=== PATIENT | female | born 1945 | race Caucasian/White ===

== ENCOUNTER → 2017-05-14 13:40 | Outpatient (CLI) | payer MEDICARE, OTHER, SELFPAY | PROVIDERS: Family Provider Family Medicine; PCP Family Medicine; Visit Provider Obstetrics & Gynecology Gynecologic Oncology | DX: C54.1 Malignant neoplasm of endometrium (principal) | CPT/HCPCS: 36415; 86304 ==

== ENCOUNTER → 2017-06-03 09:30 | Outpatient (CLI) | payer MEDICARE, OTHER, SELFPAY ==
[2017-06-03 12:14] LABS: Absolute Lymphocyte Count 2.45 X10^3/ul (0.83-4.51); Absolute Neutrophil Count 3.2 X10^3/uL (2.0-7.7); Basophil# 0.02 X10^3/uL; Basophil% 0.3 % (0-1); Eosinophil# 0.05 X10^3/uL; Eosinophils% 0.8 % (0-5); Hematocrit 47.1 % (37-47); Hemoglobin 15.6 g/dl (12.0-15.0); Lymphocyte # 2.45 X10^3/ul (4.0); Lymphocyte % 38.8 % (19-41); Mean Corp Hgb Conc 33.1 g/gl (32-36); Mean Corpuscular Hgb 30.7 pg (27.0-32.0); Mean Corpuscular Volume 92.7 fL (81-99); Mean Platelet Vol. 10.2 fl (6.2-12.0); Monocyte# 0.56 X10^3/uL; Monocyte% 8.9 % (0-10); Neutrophil # 3.22 X10^3/uL (2.7-7.7); Platelet Count 265 K/mm3 (150-450); RBC Distribution Width CV 13.8 % (11.6-14.6); RBC Distribution Width SD 45.7 fl (35.1-43.9); Red Blood Count 5.08 M/mm3 (4.2-5.4); White Blood Count 6.3 K/mm3 (4.4-11.0)
[2017-06-03 12:20] LABS: POSITIVE COUNT NO; POSITIVE DIFFERENTIAL NO; POSITIVE MORPHOLOGY NO
[2017-06-03 12:44] LABS: Vitamin D,25 Hydroxy 52.4 ng/mL (29.95-100.01)
[2017-06-03 12:52] LABS: ALB/GLOB Ratio 0.9 RATIO (0.9-2.4); AST(SGOT) 19 U/L (15-37); Alanine Aminotransfer ALT/SGPT 22 U/L (13-56); Albumin, Serum 3.7 g/dL (3.2-5.0); Alkaline Phosphatase 78 U/L (45-117); Anion Gap 8 (5-15); BUN 17 mg/dL (7-18); BUN/Creat Ratio 20.6 RATIO (10-20); Calcium,Total 8.8 mg/dL (8.5-10.1); Chloride 107 mmol/L (98-107); Creatinine, Serum 0.82 mg/dL (0.55-1.02); EST Glomerular Filtration Rate 72 mL/min (>60); Est Glom Filt Rate - Afr Amer 88 mL/min (>60); Globulin 3.9 g/dL (2.2-4.2); Glucose 87 mg/dL (74-106); Potassium 3.9 mmol/L (3.5-5.1); Protein, Total 7.6 g/dL (6.4-8.2); Sodium Level 139 mmol/L (136-145); T4 Free Direct 1.02 ng/dL (0.76-1.46); Thyroid Stim Hormone (TSH) 1.35 uIU/mL (0.358-3.74)
== END ==
PROVIDERS: Family Provider Family Medicine; PCP Family Medicine; Visit Provider Family Medicine
DX: E78.5 Hyperlipidemia, unspecified (principal); E55.9 Vitamin D deficiency, unspecified; R53.83 Other fatigue
CPT/HCPCS: 36415; 80053; 82306; 84439; 84443; 85025

== ENCOUNTER → 2017-06-24 09:37 | Outpatient (CLI) | payer MEDICARE, OTHER, SELFPAY ==
--- NOTE | 2017-06-24 09:42 | RAD_ITS ---
STUDY: X-RAY - RIGHT KNEE REASON FOR EXAM: Female, 72 years old. Pain. TECHNIQUE: 4 view(s) of the knee. COMPARISON: None. FINDINGS: Normal visualized distal femur. Normal visualized proximal tibia and fibula. Normal proximal tibiofibular articulation. There is no demonstrated fracture. 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 There is minimal degenerative arthrosis of the lateral femorotibial compartment. There is minimal degenerative arthrosis of the patellofemoral articulation. There is no demonstrated joint effusion. The soft tissue structures are unremarkable. RAD/Knee 4 or More Views IMPRESSION: No acute abnormality. Minimal multicompartment degenerative disease especially for a patient of this age. Electronically Signed: Pascual Chauhan MD at 16:07 EDT , Service support ,
--- NOTE | 2017-06-24 09:42 | RAD_ITS ---
STUDY: X-RAY - RIGHT KNEE REASON FOR EXAM: Female, 72 years old. Pain. TECHNIQUE: 4 view(s) of the knee. COMPARISON: None. FINDINGS: Normal visualized distal femur. Normal visualized proximal tibia and fibula. Normal proximal tibiofibular articulation. There is no demonstrated fracture. Normal medial femorotibial compartment. Normal lateral femorotibial compartment. There is minimal degenerative arthrosis of the patellofemoral articulation. There is no demonstrated joint effusion. The soft tissue structures are unremarkable. RAD/Knee 4 or More Views IMPRESSION: No acute abnormality. 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 Electronically Signed: Pascual Chauahn MD at 16:07 EDT , Service support ,
== END ==
PROVIDERS: Family Provider Family Medicine; PCP Family Medicine; Visit Provider Family Medicine
DX: M25.561 Pain in right knee (principal); M25.562 Pain in left knee; G89.29 Other chronic pain
CPT/HCPCS: 73564

== ENCOUNTER → 2017-09-05 08:31 | Outpatient (CLI) | payer MEDICARE, OTHER, SELFPAY ==
[2017-09-06 11:58] LABS: Cancer Antigen 125 16.1 U/mL (0.0-38.1)
== END ==
PROVIDERS: Family Provider Family Medicine; PCP Family Medicine; Visit Provider Obstetrics & Gynecology Gynecologic Oncology
DX: C54.1 Malignant neoplasm of endometrium (principal)
CPT/HCPCS: 36415; 86304

== ENCOUNTER → 2018-01-14 08:10 | Outpatient (CLI) | payer MEDICARE, OTHER, SELFPAY ==
[2018-01-15 10:22] LABS: Cancer Antigen 125 17.1 U/mL (0.0-38.1)
== END ==
PROVIDERS: Family Provider Family Medicine; PCP Family Medicine; Referring Provider Obstetrics & Gynecology Gynecologic Oncology; Visit Provider Obstetrics & Gynecology Gynecologic Oncology
DX: C54.1 Malignant neoplasm of endometrium (principal)
CPT/HCPCS: 36415; 86304

== ENCOUNTER → 2018-01-28 09:27 | Outpatient (CLI) | payer MEDICARE, OTHER, SELFPAY ==
[2018-01-28 11:05] LABS: BUN 23 mg/dL (7-18); Creatinine, Serum 0.94 mg/dL (0.55-1.02); EST Glomerular Filtration Rate 62 mL/min (>60); Est Glom Filt Rate - Afr Amer 75 mL/min (>60)
--- OUTSIDE RECORDS SUMMARY | 2018-03-11 23:40 | XMS RPT_ITS ---
:1945 External Reference #:[id number] Author Organization [place] Support Name Relationship Address Phone Osbaldo Kim Unavailable + HECTOR KIM Unavailable [address] + [place] [address] ALICJA GALLAGHERY Unavailable [address] + [place] [address] R Unavailable Unavailable Unavailable DEEKATYOSBALDOHECTOR Unavailable [address] + [place] [address] ALICJA GALLAGHERY Unavailable [address] + [place] [address] R Unavailable Unavailable Unavailable GWENSSNER HECTOR Unavailable [address] + [place] [address] AILEEN SHAMA Unavailable [address] + [place] [address] R Unavailable Unavailable Unavailable DEEKATY HECTOR Unavailable [address] + [place] [address] AILEEN SHAMA Unavailable [address] + [place] [address] R Unavailable Unavailable Unavailable VITO HECTOR Unavailable [address] + [place] [address] AILEEN SHAMA Unavailable [address] + [place] [address] R Unavailable Unavailable Unavailable GWENSSNER HECTRO Unavailable [address] + [place] [address] AILEEN SHAMA Unavailable [address] + [place] [address] R Unavailable Unavailable Unavailable GWENSSNER, HECTOR Unavailable [address] + [place] [address] AILEEN SHAMA Unavailable [address] + [place] [address] R Unavailable Unavailable Unavailable Care Team Providers Name Role Phone Ryne Munoz Attending Unavailable PROVIDER, UNKNOWN Referring Unavailable Asia, Micheal Primary Care Unavailable Ryne Munoz Attending Unavailable Ryne Munoz Referring Unavailable Asia, Micheal Primary Care Unavailable Asia, Micheal Attending Unavailable Asia, Micheal Primary Care Unavailable Asia, Micheal Attending Unavailable Asia, Micheal Primary Care Unavailable Ryne Munoz Attending Unavailable Ryne Munoz Referring Unavailable Asia, Micheal Primary Care Unavailable Deyvi Villalba Attending Unavailable Asia, Micheal Referring Unavailable Asia, Micheal Primary Care Unavailable Ryne Munoz Attending Unavailable Ryne Munoz Referring Unavailable Asia, Micheal Primary Care Unavailable KAMILLE CORDERO Attending Unavailable Asia, Micheal Primary Care Unavailable KAMILLE CORDERO Referring Unavailable PROBLEMS PROBLEMS DATE TYPE CONDITION / CODE ATTENDING STATUS SOURCE 01/30/2018 Admitting Cyst of kidney, [employer] Diagnosis acquired / [facility] N28.1(ICD-10) Repository 01/30/2018 Admitting Pelvic and [employer] Diagnosis perineal pain / [facility] R10.2(ICD-10) Repository 01/30/2018 Admitting Personal history [employer] Diagnosis of malignant [facility] neoplasm of oth Repository prt uterus / Z85.42(ICD-10) 01/28/2018 Unknown C54.1 - Malignant KAMILLE CORDERO Active [facility] neoplasm of Community endometrium / Hospital C54.1(ICD-10) Repository 06/24/2017 Unknown M25.561 - Pain in Micheal Betancourt Active [facility] right knee / Community M25.561(ICD-10) Hospital Repository 06/24/2017 Unknown M25.562 - Pain in Micheal Betancourt Active [place] left knee / [facility] M25.562(ICD-10) Hospital Repository 06/03/2017 Unknown E55.9 - Vitamin D Micheal Betancourt Active [facility] deficiency, Community unspecified / Hospital E55.9(ICD-10) Repository 06/03/2017 Unknown E78.5 - Micheal Betancourt Active [facility] Hyperlipidemia, Community unspecified / Hospital E78.5(ICD-10) Repository 06/03/2017 Unknown R53.83 - Other Micheal Betancourt Active [facility] fatigue / Community R53.83(ICD-10) Hospital Repository PROCEDURES PROCEDURES No Procedure Records FoundRESULTS RESULTS CT ABDOMEN/PELVIS W/ Observed: 01/30/2018 Status: F Source: [employer] CONTRAST 3:30 PM SYSTEM REPOSITORY Patient Name: RAMOS KIM CT Exam Date/Time 01/30/2018 10:40:[address] Abdomen/Pelvis w/ IV Contrast (IV Onl Ordering Physician RYNE MUNOZ Accession Number [id number] CPT4 Codes 58865 (CT Abdomen/Pelvis w/ IV Contrast (IV Onl), Q9967 (CT ISOVUE 370MG/[id number]) Reason For Exam pelvic pain, hx of metastatic uterine cancer Report CT ABDOMEN and PELVIS WITH CONTRAST. INDICATION: Pelvic pain, history of metastatic uterine carcinoma COMPARISON: 01/28/2017. CONTRAST: 75 cc of Isovue-370. CT scans of the abdomen and pelvis were performed following oral and intravenous contrast administration, with images from the lung bases through the pubic symphysis. The images are reviewed in the axial, sagittal and coronal planes. The lung bases are clear. The cardiac silhouette is satisfactory. The liver is normal in size, shape and attenuation. There are no focal liver masses. The gallbladder is normal. No intra or extrahepatic biliary ductal dilatation is appreciated. The pancreas is unremarkable. The spleen is unremarkable. Evaluation of the upper GI tract demonstrates the stomach to be unremarkable. The duodenum is satisfactory in appearance. The small bowel is unremarkable. There is no mucosal thickening. No zone of transition is appreciated. There is no free fluid nor free air. A small midline supraumbilical fat-containing ventral hernia is present. Evaluation of the colon demonstrate no evidence of obstruction or mass lesion. No mucosal thickening of the colon is appreciated. The appendix is normal. The right adrenal gland is normal. The left adrenal gland is normal. The right kidney is unremarkable. A 1.2 cm inferior pole right renal cyst is present. The left kidney is unremarkable. A 1.1 cm left renal cyst is present. There are no mass lesions nor evidence of obstruction. No calculi are seen. Scans through the pelvis demonstrate the rectosigmoid to be unremarkable. The bladder is unremarkable. The remainder of the pelvic contents are unremarkable. There is no mass or adenopathy. There is no free fluid. The aorta, inferior vena cava and iliac vessels are satisfactory. The retroperitoneum is unremarkable. There is no mass or adenopathy. The osseous structures are intact. IMPRESSION: Bilateral renal cysts. No acute abdominal or pelvic process. Report Dictated on Final Dictated: 01/30/2018 3:30 pm Dictating Physician: DO RUIZ ALFRED Signed Date and Time: 01/30/2018 3:34 pm Signed by: DO RUIZ ALFRED Transcribed Date and Time: 01/30/2018 3:30 BUN Collected: 01/28/2018 Status: F Source: [place] 9:37 AM [facility] REPOSITORY TYPE CODE TESTS RESULT OUT OF RANGE REFERENCE UNITS LAB L501.1000 7-18 mg/dL High BUN 23 Performed By: #### L501.1000, L501.1105 #### [facility] [address] [place], [place], [address] SERUM CREATININE AND Collected: 01/28/2018 Status: F Source: [place] GFR 9:37 AM [facility] REPOSITORY TYPE CODE TESTS RESULT OUT OF RANGE REFERENCE UNITS LAB L501.1100 0.55-1.02 mg/dL Normal 0.94 CREAT,SERUM Result Comment: The validity of the calculated GFR AND GFRAA in patients over 70 years has not been determined. Clinical correlation is essential. LAB L501.1110 >60 mL/min Normal EST GFR 62 Result Comment: Non- GFR Calc LAB L501.1115 >60 mL/min Normal EST GFR - AA 75 Result Comment: GFR Calc Performed By: #### L501.1000, L501.1105 #### [facility] [address] [place], [address] CANCER ANTIGEN 125 Collected: 01/14/2018 Status: F Source: [place] 8:16 AM [facility] REPOSITORY TYPE CODE TESTS RESULT OUT OF RANGE REFERENCE UNITS LAB L3100.5000 0.0-38.1 U/mL Normal CA125 17.1 2303 Result Comment: Tom ECLIA methodology Performed at: [address] [id number] Product Demonstrator: Kash Silva PhD, Phone: [phone] Performed By: #### L3100.5000 #### [facility] (refer to report for specific site) refer to report for address and phone number URGENT CARE VISIT Observed: 11/18/2017 Status: F Source: [place] REPORT 10:10 AM [facility] REPOSITORY [facility] [address] [place] [address] OFFICE VISIT Date of Service: 11/18/17 MR#: [id number] Acct: [id number] Name: RAMOS KIM Rep #: [id number] : 1945 Provider: Deyvi DODGE Age/Sex: 72/F Location: [facility] Status: Signed Intake Vital Signs11/18/17 Height 5 ft 2.5 in Intake Visit Reasons: SINUS INFECTION Allergies No Known Allergies Allergy (Verified 11/18/17 09:58) Medications amoxicillin 875 mg-potassium clavulanate 125 mg tablet 1 tab PO Q12H 9 Days #18 tab 11/18/17 [Rx Confirmed 11/18/17] coenzyme Q10 30 mg capsule 30 mg PO DAILY 11/18/17 [History Confirmed 11/18/17] omega-3s 300 de-nzq-nty-other lpeam0e-bayi oil 1,000 mg capsule cap PO 11/18/17 [History Confirmed 11/18/17] simvastatin 20 mg tablet PO 90 Days #90 11/18/17 [History Confirmed 11/18/17] PFSH Medical History Abnormal bruising (Acute) Back pain (Acute) Difficulty balancing (Acute) Endometrial cancer (Acute) Fatigue (Acute) Migraines (Acute) Shoulder pain (Acute) Uterine cancer (Acute) Family History Other CVA (cerebral vascular accident) Cancer Hypertension Social History Smoking Status: Never smoker alcohol intake: never HPI HPI Details: RAMOS KIM, is a 72 F who presents to the office today for sinus pressure and pain as well as sore throat and nasal congestion. Patient states that she has had worsening sinus pressure and pain over the past 5 days that has started to cause headaches. She has not tried any medications for headaches at this time however has started Augmentin that she had leftover last night and this morning. She denies fever, chills, sweats. No nausea, vomiting, diarrhea. No other associated symptoms or alleviating/aggravating factors. ROS Const Constitutional: Positive for headache(s); no fever(s), chills, night sweats or abnormal sleep pattern ENT ENT: Positive for headache(s), nasal congestion, sinus pressure, sinus pain, nasal discharge and sore throat; no ear pain Resp Respiratory: No cough or shortness of breath Cardio Cardiology: No shortness of breath, irregular heart rhythm or fast heart rate Neuro Neurology: Positive for headache(s); no confusion Psych Psychiatric: No abnormal sleep pattern, No confusion Exam Const General: cooperative, healthy appearing HENUT Head: normal to inspection Ears: hearing grossly normal bilaterally, TM's normal bilaterally, EAC's normal Nose: nasal discharge purulent Face and sinus: sinus tenderness frontal and maxillary Mouth: oral mucosae normal Throat: abnormal tonsil bilaterally, postnasal drainage Resp Effort AND Inspection: normal respiratory effort Auscultation: Bilateral: Clear to Auscultation Cardio Palpation: normal PMI Rate: regular rate Rhythm: regular rhythm Neuro General: alert, CN's II-XI intact bilaterally Psych Appearance: grossly normal Mental Status: mental status grossly normal Assessment AND Plan Problems 1. Acute non-recurrent frontal sinusitis J01.10 Status Acute Plan Augmentin as prescribed today. Encouraged to get plenty of rest, drink lots of clear liquids, and use Tylenol or Ibuprofen (unless contraindicated) for fever and comfort. Patient also educated on other symptomatic management techniques. To be seen in 7-10 days if no improvement; sooner if worsening of symptoms. Patient advised of potential red flags and when appropriate report to the ED. Patient verbalized understanding and agreement with all the above. Medications New: Coding Level of Care Code Off vis,new,level 3 Diagnoses Acute non-recurrent frontal sinusitis J01.10 Sinusitis location: frontal Recurrence: non-recurrent 11/18/17 1010 <Electronically signed by Deyvi DODGE> Date Deyvi DODGE Cosigner Signature: Date (if applicable) CC: CANCER ANTIGEN 125 Collected: 09/05/2017 Status: F Source: [place] 8:39 AM [facility] REPOSITORY TYPE CODE TESTS RESULT OUT OF RANGE REFERENCE UNITS LAB L3100.5000 0.0-38.1 U/mL Normal CA125 16.1 2303 Result Comment: Tom ECLIA methodology Performed at: - [facility] [address] [id number] Product Demonstrator: Kash Silva PhD, Phone: [phone] Performed By: #### L3100.5000 #### [facility] (refer to report for specific site) refer to report for address and phone number KNEE 4 OR MORE Observed: 06/24/2017 Status: F Source: [place] VIEWS 9:43 AM [facility] REPOSITORY [facility] [address] [place] [address] Knee 4 or More Views MR#: [id number] Acct: [id number] Name: GWENCOSMORAMOS A Rep #: [id number] : 1945 F 72 From: Pascual Chauhan MD PCP: Micheal Betancourt Status: REG CLI Study: Knee 4 or More Views Date of Exam: 06/24/17 Exam# [id number] Ordering Dr: Micheal Betancourt MD STUDY: X-RAY - RIGHT KNEE REASON FOR EXAM: Female, 72 years old. Pain. TECHNIQUE: 4 view(s) of the knee. COMPARISON: None. FINDINGS: Normal visualized distal femur. Normal visualized proximal tibia and fibula. Normal proximal tibiofibular articulation. There is no demonstrated fracture. 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 There is minimal degenerative arthrosis of the lateral femorotibial compartment. There is minimal degenerative arthrosis of the patellofemoral articulation. There is no demonstrated joint effusion. The soft tissue structures are unremarkable. RAD/Knee 4 or More Views IMPRESSION: No acute abnormality. Minimal multicompartment degenerative disease especially for a patient of this age. Electronically Signed: Pascual Chauhan MD at 16:07 EDT , Service support , CC: Micheal Betancourt Blood Donor Unit Assistant: Signed KNEE 4 OR MORE Observed: 06/24/2017 Status: F Source: [place] VIEWS 9:43 AM [facility] REPOSITORY [facility] [address] [place] [address] Knee 4 or More Views MR#: [id number] Acct: [id number] Name: RAMOS KIM Rep #: [id number] : 1945 F 72 From: Pascual Chauhan MD PCP: Micheal Betancourt Status: REG CLI Study: Knee 4 or More Views Date of Exam: 06/24/17 Exam# [id number] Ordering Dr: Micheal Betancourt MD ADDENDUM by Pascual Chauhan on 06/25/17 at 1740 RAD/Knee 4 or More Views 06/25/17 174 Date cc: Micheal Betancourt * Signed ADDENDUM by Pascual Chauhan on 06/25/17 at 1740 ADDENDUM This exam is the left knee. Electronically Signed: Pascual Chauhan MD at 17:40 EDT , Service support , 06/25/17 1740 Date cc: Micheal Betancourt * Signed STUDY: X-RAY - RIGHT KNEE REASON FOR EXAM: Female, 72 years old. Pain. TECHNIQUE: 4 view(s) of the knee. COMPARISON: None. FINDINGS: Normal visualized distal femur. Normal visualized proximal tibia and fibula. Normal proximal tibiofibular articulation. There is no demonstrated fracture. Normal medial femorotibial compartment. Normal lateral femorotibial compartment. There is minimal degenerative arthrosis of the patellofemoral articulation. There is no demonstrated joint effusion. The soft tissue structures are unremarkable. RAD/Knee 4 or More Views IMPRESSION: No acute abnormality. 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 Electronically Signed: Pascual Chauhan MD at 16:07 EDT , Service support , CC: Micheal Betancourt Blood Donor Unit Assistant: Signed CBC W/DIFF, AUTOMATED Collected: 06/03/2017 Status: F Source: [place] 9:33 AM [facility] REPOSITORY TYPE CODE TESTS RESULT OUT OF RANGE REFERENCE UNITS LAB L100.1000 4.4-11.0 K/mm3 Normal WBC 6.3 LAB L100.1200 4.2-5.4 M/mm3 Normal RBC 5.08 LAB L100.1300 12.0-15.0 g/dl High HGB 15.6 LAB L100.1400 37-47 % High HCT 47.1 LAB L100.1500 81-99 fL Normal MCV 92.7 LAB L100.1600 27.0-32.0 pg Normal MCH 30.7 LAB L100.1700 32-36 g/gl Normal MCHC 33.1 LAB L100.1810 11.6-14.6 % Normal RDW CV 13.8 LAB L100.1820 35.1-43.9 fl High RDW SD 45.7 LAB L100.1900 150-450 K/mm3 Normal PLT 265 LAB L100.2000 6.2-12.0 fl Normal MPV 10.2 LAB L100.2100 47-70 % Normal NEUT% 51.0 LAB L100.2200 19-41 % Normal LY% 38.8 LAB L100.2300 0-10 % Normal MONO% 8.9 LAB L100.2400 0-5 % Normal EO% 0.8 LAB L100.2500 0-1 % Normal BASO% 0.3 LAB L100.2550 0.0-0.9 % Normal IM GRAN % 0.200 Result Comment: IG% - Immature Granulocytes (promyelocytes, myelocytes and metamyelocytes) > 1% indicates that a LEFT SHIFT is Present. LAB L100.2620 2.0-7.7 X10 3/uL Normal Absolute Neut 3.2 LAB L100.2720 0.83-4.51 X10 3/ul Normal Absolute Lymph 2.45 Performed By: #### L100.0100 #### [facility] [address] [facility]. [place], [place], [address] VITAMIN D,25 HYDROXY Collected: 06/03/2017 Status: F Source: [place] 9:33 AM [facility] REPOSITORY TYPE CODE TESTS RESULT OUT OF RANGE REFERENCE UNITS LAB L506.1000 29.95-100.01 ng/mL Normal Vitamin D 52.4 25-OH Result Comment: Vitamin D 25(OH) Status Range Deficiency <20 ng/mL (50nmol/L) Insuffciency 20 - 30 ng/mL (50 - 75 nmol/L) Sufficiency 30 - 100 ng/mL (75 - 250 nmol/L) Toxicity >100 ng/mL (>250 nmol/L) Performed By: #### L506.1000 #### [facility] [address] [place], [place], [address] COMPREHENSIVE METABOLIC Collected: 06/03/2017 Status: F Source: [facility] 9:33 AM [facility] REPOSITORY TYPE CODE TESTS RESULT OUT OF RANGE REFERENCE UNITS LAB L501.0100 74-106 mg/dL Normal GLU 87 Result Comment: Please note revised GLUCOSE reference range effective 2017. LAB L501.1000 7-18 mg/dL Normal BUN 17 LAB L501.1100 0.55-1.02 mg/dL Normal CREAT,SERUM 0.82 Result Comment: The validity of the calculated GFR AND GFRAA in patients over 70 years has not been determined. Clinical correlation is essential. LAB L501.1110 >60 mL/min Normal EST GFR 72 Result Comment: Non- GFR Calc LAB L501.1115 >60 mL/min Normal EST GFR - AA 88 Result Comment: GFR Calc LAB L501.1300 10-20 RATIO High BUN/CRE 20.6 LAB L501.1500 6.4-8.2 g/dL T Normal PROT 7.6 LAB L501.1800 3.2-5.0 g/dL Normal ALB 3.7 LAB L501.1950 2.2-4.2 g/dL Normal GLOB 3.9 LAB L501.2000 0.9-2.4 RATIO Normal A/G 0.9 LAB L501.2200 8.5-10.1 mg/dL CA Normal 8.8 LAB L501.4100 15-37 U/L Normal AST 19 Result Comment: Slight Hemolysis, Result may be falsely increased. LAB L501.4305 45-117 U/L Normal ALK P 78 LAB L501.4405 13-56 U/L Normal ALT 22 Result Comment: Please note revised ALT reference range effective 2017. LAB L501.4600 0.20-1.00 mg/dL Normal T BILI 0.30 LAB L501.5300 136-145 mmol/L Normal NA 139 LAB L501.5600 3.5-5.1 mmol/L Normal K 3.9 Result Comment: Slight Hemolysis, Result may be falsely increased. LAB L501.5900 98-107 mmol/L Normal CL 107 LAB L501.6100 21.0-32.0 mmol/L Normal CO2 24.0 LAB L501.6200 5-15 Normal 8 GAP Performed By: #### L500.4050, L501.9520, L506.0400 #### [facility] [address] [place], [address] THYROID STIM HORMONE Collected: 06/03/2017 Status: F Source: [place] (TSH) 9:33 AM [facility] REPOSITORY TYPE CODE TESTS RESULT OUT OF RANGE REFERENCE UNITS LAB L501.9520 0.358-3.74 uIU/mL Normal TSH 1.35 Performed By: #### L500.4050, L501.9520, L506.0400 #### [facility] [address] [place], [address] T4 FREE DIRECT Collected: 06/03/2017 Status: F Source: [place] 9:33 AM [facility] REPOSITORY TYPE CODE TESTS RESULT OUT OF RANGE REFERENCE UNITS LAB L506.0400 0.76-1.46 ng/dL Normal T4 FREE 1.02 DIRECT Performed By: #### L500.4050, L501.9520, L506.0400 #### [facility] [address] [place], [place], [address] CANCER ANTIGEN 125 Collected: 05/14/2017 Status: F Source: [place] 1:48 PM [facility] REPOSITORY TYPE CODE TESTS RESULT OUT OF RANGE REFERENCE UNITS LAB L3100.5000 0.0-38.1 U/mL Normal CA125 16.0 2303 Result Comment: Tom ECLIA methodology Performed at: [facility] [address] [id number] Product Demonstrator: Kash Silva PhD, Phone: [phone] Performed By: #### L3100.5000 #### [facility] (refer to report for specific site) refer to report for address and phone number ALLERGIES ALLERGIES DATE TYPE / CODE NAME / CODE REACTION SEVERITY SOURCE 11/18/2017 Drug No Known Unknown [facility] Allergy/4160 Allergies/F00 [facility] [address](SNOMED 3893418(RXNOR Repository CT) M) ENCOUNTERS ENCOUNTERS ADMIT/DISCHARGE ACCOUNT NUMBER ADMITTING ENCOUNTER LOCATION SOURCE CLASS 01/30/2018 [id number] Ambulatory [facility] Repository 01/28/2018 [id number] Ambulatory [facility] ding:LAB.FUT Repository URE 01/14/2018 [id number] Ambulatory [facility] ding:MTLAB Repository 11/18/2017/11/19/19 [id number] Ambulatory BMSBuilding: [facility] Repository 09/05/2017 [id number] [facility] ding:MTLAB Repository 06/24/2017 [id number] [facility] ding:MTRAD Repository 06/03/2017 [id number] [facility] ding:BFHLAB Repository 05/14/2017 [id number] [facility] ding:LAB Repository PAYERS PAYERS ENCOUNTER GUARANTOR PAYER SUBSCRIBER SOURCE 01/30/2018 Ramos [facility] G[facility]nerD[facility]: Insurance:MedicarePol GlessnerDOB: System icy Number: Effective [id number] [facility] Date: [place], [place] [address]Egt: () 01/30/2018 [facility] Insurance:MedicarePol GlessnerDOB: System icy Number: Effective [id number] Repository Date: 01/30/2018 Tertiary [facility] Insurance:Medical GlessnerDOB: System [facility] [id number] Repository Number: Effective Date: 01/28/2018 RAMOS A Primary RAMOS A [place] [id number] [address] Insurance:MEDICARE GLESSNERDOB: [facility], PART A [facility] [id number] [facility] [address]Tge: Number: Repository [id number] () Date:2018-01-28 01/28/2018 Secondary RAMOS A [place] Insurance:MEDICAL GLESSNERDOB: [facility] [id number] Hospital Number: Repository [id number] Date:[id number] [address]MX: 01/28/2018 Tertiary [facility] [place] Insurance:SELF PAY [facility] Number: Effective Repository Date:2018-01-28 01/14/2018 RAMOS A Primary RAMOS A [place] [id number] [place] Insurance:MEDICARE GLESSNERDOB: [facility] PART A [facility] [id number] [address]Qsc: Number: Repository [id number] (HP) Date:2018-01-14 01/14/2018 Secondary RAMOS A [place] Insurance:MEDICAL GLESSNERDOB: [place] [id number] Hospital Number: Repository [id number] Date:[id number] [address] [address]RS: 01/14/2018 Tertiary NOT GIVENUNK [place] Insurance:SELF PAY [facility] Number: Effective Repository Date:2018-01-14 11/18/2017 Ramos A Primary Ramos A [place] [id number] [place] Insurance:MEDICARE GlessnerDOB: [facility] PART A [facility] [id number] [facility] [address]Iem: Number: Repository [id number] (HP) Date:2017-11-18 11/18/2017 Secondary Ramos A [place] Insurance:MEDICAL GlessnerDOB: [facility] [id number] Hospital Number: Repository [id number] Date:[id number] [address]HS: 11/18/2017 Tertiary NOT GIVENUNK [place] Insurance:SELF PAY [facility] Number: Effective Repository Date:2017-11-18 09/05/2017 Ramos A Primary Ramos A [place] [id number] [place] Insurance:MEDICARE GlessnerDOB: [facility] PART A [facility] [id number] [facility]al [facility] [address]Bjx: Number: Repository [id number] (HP) Date:2017-09-05 09/05/2017 Secondary Ramos A [place] Insurance:MEDICAL GlessnerDOB: [place] [id number] Hospital Number: Repository [id number] Date:[id number] [address] [place] [address]OW: 09/05/2017 Tertiary NOT GIVENUNK [place] Insurance:SELF PAY [facility] Number: Effective Repository Date:2017-09-05 06/24/2017 Ramos A Primary Ramos A [place] [id number] [place] Insurance:MEDICARE GlessnerDOB: [facility] PART A [facility] [id number] [id number]: Number: Repository [id number] (HP) Date:2017-06-24 06/24/2017 Secondary Ramos A [place] Insurance:MEDICAL GlessnerDOB: [place] [id number] Number: Repository [id number] Date:0426-64-05RJ [address] [address]UC: 06/24/2017 Tertiary NOT GIVENUNK Charles Insurance:SELF PAY [facility] Number: Effective Repository Date:2017-06-24 06/03/2017 Ramos A Primary Ramos A Charles [id number] [place] Insurance:MEDICARE G[facility]nerD[facility] [id number] [id number]: Number: Repository [id number] (HP) Date:2017-06-03 06/03/2017 Secondary Ramos A Charles Insurance:MEDICAL GlessnerDOB: [place] [id number] Hospital Number: Repository [id number] Date:[id number] [address] [address]XX: 06/03/2017 Tertiary NOT GIVENUNK [place] Insurance:SELF PAY [facility] Number: Effective Repository Date:2017-06-03 05/14/2017 Ramos A Primary Ramos A Buena [id number] [place] Insurance:MEDICARE GlessnerDOB: [facility] PART A [facility] [id number] [place]ille [id number]: Number: Repository [id number] (HP) Date:2017-05-14 05/14/2017 Secondary Ramos Soto Insurance:MEDICAL GlessnerDOB: [facility] [id number] Hospital Number: Repository [id number] Date:[id number] [address]RQ: 05/14/2017 Tertiary NOT GIVENHELIO Charles Insurance:SELF PAY [facility] Number: Effective Repository Date:2017-05-14
== END ==
PROVIDERS: Family Provider Family Medicine; PCP Family Medicine
DX: C54.1 Malignant neoplasm of endometrium (principal)
CPT/HCPCS: 36415; 82565; 84520

== ENCOUNTER → 2018-06-04 08:48 | Outpatient (CLI) | payer MEDICARE, OTHER, SELFPAY ==
[2017-11-18 09:57] VITALS: BMI 30.4
[2018-06-04 12:50] LABS: Absolute Lymphocyte Count 2.76 X10^3/ul (0.83-4.51); Absolute Neutrophil Count 3.7 X10^3/uL (2.0-7.7); Basophil# 0.03 X10^3/uL; Basophil% 0.4 % (0-1); Eosinophil# 0.07 X10^3/uL; Hematocrit 44.3 % (37-47); Hemoglobin 14.4 g/dl (12.0-15.0); Lymphocyte # 2.76 X10^3/ul (4.0); Lymphocyte % 38.5 % (19-41); Mean Corp Hgb Conc 32.5 g/gl (32-36); Mean Corpuscular Hgb 30.9 pg (27.0-32.0); Mean Corpuscular Volume 95.1 fL (81-99); Mean Platelet Vol. 9.7 fl (6.2-12.0); Monocyte# 0.62 X10^3/uL; Monocyte% 8.7 % (0-10); Neutrophil # 3.65 X10^3/uL (2.7-7.7); Platelet Count 307 K/mm3 (150-450); RBC Distribution Width SD 46.9 fl (35.1-43.9); Red Blood Count 4.66 M/mm3 (4.2-5.4); White Blood Count 7.2 K/mm3 (4.4-11.0)
[2018-06-04 12:51] LABS: POSITIVE COUNT NO; POSITIVE DIFFERENTIAL NO; POSITIVE MORPHOLOGY NO
[2018-06-04 13:08] LABS: AST(SGOT) 11 U/L (15-37); Alanine Aminotransfer ALT/SGPT 26 U/L (13-56); Albumin, Serum 3.6 g/dL (3.2-5.0); Alkaline Phosphatase 69 U/L (45-117); Anion Gap 6 (5-15); BUN 26 mg/dL (7-18); BUN/Creat Ratio 33.7 RATIO (10-20); Chloride 108 mmol/L (98-107); Creatinine, Serum 0.77 mg/dL (0.55-1.02); EST Glomerular Filtration Rate 78 mL/min (>60); Est Glom Filt Rate - Afr Amer 94 mL/min (>60); Globulin 3.7 g/dL (2.2-4.2); Glucose 89 mg/dL (74-106); Protein, Total 7.3 g/dL (6.4-8.2); Sodium Level 142 mmol/L (136-145); Thyroid Stim Hormone (TSH) 1.12 uIU/mL (0.358-3.74)
== END ==
PROVIDERS: Family Provider Family Medicine; PCP Family Medicine; Visit Provider Family Medicine
DX: E55.9 Vitamin D deficiency, unspecified (principal); E78.5 Hyperlipidemia, unspecified; R73.01 Impaired fasting glucose
CPT/HCPCS: 36415; 80053; 82306; 84443; 85025

== ENCOUNTER → 2018-06-11 | Outpatient (CLI) | payer MEDICARE, OTHER, SELFPAY ==
--- NOTE | 2018-06-11 08:00 | RAD_ITS ---
PROCEDURE: Fluoroscopic guided Hip Injection DATE: June 11, 2018. INDICATION: Female, 73 years old. Chronic left hip pain. PHYSICIAN: Max Olsen M.D. MEDICATIONS: 6 mg of betamethasone and 3 cc of 1% lidocaine. 2% lidocaine administered subcutaneously for local anesthesia. ACCESS SITE: Left hip. NEEDLE: 22-gauge spinal needle. FLUOROSCOPY TIME (if supplied): (0:55) minutes/seconds FINDINGS: The risks, benefits, and alternatives to the procedure were explained to the patient. The specific risks of bleeding, infection, and neurovascular injury were detailed and accepted. Witnessed informed consent was obtained. A 22-gauge spinal needle was positioned under radiographic fluoroscopic localization. Approximately 2 cc of Isovue-300 instilled for localization purposes. Medication was then injected. The patient tolerated the procedure well without any immediate complications. The patient was placed supine with head elevated and returned to the floor in stable condition. RAD/Inj/Asp Minh Jt Should/Hip/Knee IMPRESSION: 1. Successful fluoroscopic guided hip injection. Electronically Signed: Max Olsen, at 10:54 EDT , Service support ,
== END | disposition home or self-care (01) ==
PROVIDERS: Family Provider Family Medicine; PCP Family Medicine; Referring Provider Physician Assistant Surgical; Visit Provider Physician Assistant Surgical
DX: M16.12 Unilateral primary osteoarthritis, left hip (principal)
CPT/HCPCS: 20610; 77002; Q9967; J0702

== ENCOUNTER → 2018-07-03 | Outpatient (CLI) | payer MEDICARE, OTHER, SELFPAY ==
[2017-11-18 09:57] VITALS: BMI 30.4
--- NOTE | 2018-07-03 08:00 | BI_ITS ---
MAMMOGRAPHY - BILATERAL SCREENING REASON FOR EXAM: Female, 73 years old. Routine annual screening examination. PERTINENT HISTORY: Aunt with breast cancer. TECHNIQUE: Digital bilateral breast steven (3D mammographic acquisition) in the CC and MLO projections. 2-D mediolateral oblique (MLO) and craniocaudad (CC) views of both breasts were obtained. CAD: Full Field Digital Mammography with Computer Added Detection was performed. COMPARISON: Comparison is made with prior study dated November 22, 2016 and March 03, 2014. FINDINGS: Breast Composition: The breasts are heterogeneously dense, which may obscure small masses. There are no dominant masses or suspicious calcifications. Stable small bilateral axillary lymph nodes. No other significant abnormalities are identified. There has been no significant change since the prior study. BI/SCREENING MAMM (CAD), BILAT IMPRESSION: Stable bilateral screening mammogram. Yearly follow-up mammogram recommended. (A) ASSESSMENT CATEGORY: BIRADS Category 2: Benign. A letter regarding these results will be sent to the patient by the facility within 30 days. Approximately 10% of breast cancers are not detected by mammography. A normal mammogram should not delay biopsy of a clinically suspicious abnormality. [id number] Electronically Signed: Max Olsen, at 9:21 EDT , Service support ,
--- NOTE | 2018-07-03 08:30 | BD_ITS ---
STUDY: DUAL ENERGY X-RAY ABSORPTIOMETRY / DXA REASON FOR EXAM: Female, 73 years old. The patient is postmenopausal. No loss of height. TECHNIQUE: Bone Mineral Density (BMD) measurements of lumbar spine and bilateral hips were obtained. COMPARISON: Comparison is made with prior study dated April 12, 1998. FINDINGS: Lumbar Spine (L1-L4): g/cm2 (0.993) / T-score (-1.6) / Z-score (0.2) Findings are suggestive of osteopenia with a moderate fracture risk. Left Femur Total: g/cm2 (0.802) / T-score (-1.6) / Z-score (0.0) Left Femoral Neck: g/cm2 (0.733) / T-score (-2.2) / Z-score (-0.4) Right Femur Total: g/cm2 (0.752) / T-score (-2.0) / Z-score (-0.4) Right Femoral Neck: g/cm2 (0.779) / T-score (-1.9) / Z-score (0.0) The T-Scores on the most recent prior examination were: Lumbar Spine (L1-L4): There has been worsening of bone density since the previous examination. Left Femur Total: which represents a worsening of 17.9%. Right Femur Total: . BD/Dexa Bone Density Study IMPRESSION: The patient is considered osteopenic as outlined below according to World Luis Organization (WHO) criteria with a moderate fracture risk. There has been worsening of bone density since the previous examination. Reference Information: The T-score is the number of standard deviations above or below the standard which is normal for young adults at their peak bone mineral density. The World Health Organization (WHO) interprets the T-scores as follows: Above -1 Normal bone density Between -1 and -2.5 Osteopenia Equal to / or below -2.5 Osteoporosis As a practical clinical guideline, osteopenia may be graded as follows: Mild -1 through -1.5 Moderate -1.6 through -2.0 Severe -2.1 through -2.4 The Z-score is the number of standard deviations above or below age-matched controls. A Z-score of less than -1.5 would be considered abnormal. References: 1. NIH Osteoporosis and Related Bone Diseases http://www.osteo.org 2. International Society for Clinical Densitometry http://www.iscd.org 3. National Osteoporosis Foundation http://www.nof.org Electronically Signed: Max Olsen, at 14:38 EDT , Service support ,
== END | disposition home or self-care (01) ==
LOC: OPBI 07:59
PROVIDERS: Family Provider Family Medicine; PCP Family Medicine; Referring Provider Family Medicine; Visit Provider Family Medicine
DX: R29.890 Loss of height (principal); Z12.31 Encounter for screening mammogram for malignant neoplasm of breast; N95.9 Unspecified menopausal and perimenopausal disorder; E55.9 Vitamin D deficiency, unspecified; Z13.820 Encounter for screening for osteoporosis
CPT/HCPCS: 77063; 77067; 77080

== ENCOUNTER → 2018-07-23 | Outpatient (CLI) | payer MEDICARE, OTHER, SELFPAY ==
[2017-11-18 09:57] VITALS: BMI 30.4
== END | disposition home or self-care (01) ==
LOC: MTLAB 08:54
PROVIDERS: Family Provider Family Medicine; PCP Family Medicine; Referring Provider Obstetrics & Gynecology Gynecologic Oncology; Visit Provider Obstetrics & Gynecology Gynecologic Oncology
DX: C54.1 Malignant neoplasm of endometrium (principal)
CPT/HCPCS: 36415; 86304

== ENCOUNTER → 2018-08-29 | Outpatient (CLI) | payer MEDICARE, OTHER, SELFPAY ==
[2017-11-18 09:57] VITALS: BMI 30.4
--- NOTE | 2018-08-29 08:56 | RAD_ITS ---
STUDY: X-RAY - PELVIS REASON FOR EXAM: Female, 73 years old. Pelvic pain TECHNIQUE: One view of the pelvis was obtained. COMPARISON: None. FINDINGS: There is a non-specific bowel gas pattern. Normal visualized soft tissue structures. Normal bilateral iliac wings, sacroiliac joints and visualized sacrum. Normal visualized bilateral superior and inferior pubic rami. Normal pubic symphysis. Normal ischial tuberosities. There are osteoarthritic changes of the right femoral head with marginal osteophyte formation. There is osteoarthritic spur formation of the right acetabular rim. There is moderate articular joint space narrowing of the right hip. Normal visualized left femoral head. There is osteoarthritic spur formation of the left acetabular rim. There is mild articular joint space narrowing of the left hip. RAD/Pelvis 1 or 2 Views IMPRESSION: Right worse than left hip osteoarthrosis. Electronically Signed: Mark Hernandez MD at 13:44 EDT , Service support ,
--- NOTE | 2018-08-29 08:57 | RAD_ITS ---
STUDY: X-RAY - LUMBAR SPINE REASON FOR EXAM: Female, 73 years old. Back pain TECHNIQUE: 4 view(s) of the lumbar spine were obtained. COMPARISON: None FINDINGS: Normal lumbar lordosis. There is no substantial scoliosis. There is a normal alignment of the vertebrae on flexion, extension and neutral views. Loss of disc space most conspicuous at L4-L5 more than L5-S1. Multilevel facet arthropathy and spondylosis particularly in the lower lumbar levels. There is no demonstrated fracture. The soft tissue structures are unremarkable. RAD/L/S Spine Comp/w Bending Views IMPRESSION: No spondylolisthesis. Multilevel degenerative disc disease and facet arthropathy. Electronically Signed: Mark Hernandez MD at 13:45 EDT , Service support ,
== END | disposition home or self-care (01) ==
LOC: HPRAD 08:53
PROVIDERS: Family Provider Family Medicine; PCP Family Medicine
DX: M43.16 Spondylolisthesis, lumbar region (principal)
CPT/HCPCS: 72114; 72170

== ENCOUNTER → 2018-09-02 | Outpatient (CLI) | payer MEDICARE, OTHER, SELFPAY ==
--- NOTE | 2018-09-02 13:17 | MRI_ITS ---
STUDY: MRI LUMBAR SPINE WITHOUT CONTRAST REASON FOR EXAM: Female, 73 years old. Low back pain, left hip pain, left knee pain. TECHNIQUE: Standardized fat and water weighted pulse sequences were obtained in the sagittal and axial planes. COMPARISON: X-ray 08/29/2018 FINDINGS: T12-L1: Normal endplates. Normal disc height, hydration and morphology. Normal bilateral facet joints. Normal central canal and bilateral lateral recesses. Normal bilateral intervertebral neural foramina. Normal lumbar lordosis. There is no substantial scoliosis. Normal conus medullaris that terminates at the L1/L2. L1-2: Normal endplates. Normal disc height, hydration and morphology. Normal bilateral facet joints. Normal central canal and bilateral lateral recesses. Normal bilateral intervertebral neural foramina. L2-3: Normal endplates. Normal disc height, hydration and morphology. Normal bilateral facet joints. Normal central canal and bilateral lateral recesses. Normal bilateral intervertebral neural foramina. L3-4: Normal endplates. Normal disc height, hydration and morphology. Normal bilateral facet joints. Normal central canal and bilateral lateral recesses. Normal bilateral intervertebral neural foramina. L4-5: Mild bilateral facet hypertrophy and ligament flavum hypertrophy. 2 mm retrolisthesis of L4 and L5 with mild broad disc protrusion produces mild spinal stenosis with mild bilateral recess stenosis and mild bilateral neural foraminal stenosis. L5-S1: Mild bilateral facet hypertrophy. 2 mm retrolisthesis of L5 on S1 with a mild broad disc protrusion produces mild spinal stenosis with mild bilateral lateral recess stenosis, mild right neural foraminal stenosis, and moderate left neural foraminal stenosis with abutment of the exiting left L5 nerve root laterally. Normal visualized sacral ala. Normal visualized paraspinous soft tissue structures. MRI/Spine Lumbar (Routine) IMPRESSION: Mild levoscoliosis and degenerative disc disease as described above. Electronically Signed: Gabino Bhakta MD at 7:16 EDT Tel , Service support ,
== END | disposition home or self-care (01) ==
LOC: MRI 13:11
PROVIDERS: Family Provider Family Medicine; PCP Family Medicine
DX: M43.16 Spondylolisthesis, lumbar region (principal)
CPT/HCPCS: 72148

== ENCOUNTER → 2018-11-25 | Outpatient (CLI) | payer MEDICARE, OTHER, SELFPAY ==
[2018-11-25 12:04] VITALS: BMI 29.8
--- NOTE | 2018-11-25 12:33 | CT_ITS ---
STUDY: LOW DOSE CT LUNG CANCER SCREENING REASON FOR EXAM: Female, 73 years old. History of 40 pack-year smoking. History of endometrial carcinoma. RADIATION DOSAGE (If Supplied By Facility): CTDIvol = ( 3.02 ) mGy, DLP = ( 83.09 ) mGycm TECHNIQUE: No contrast was administered. Low dose technique was utilized (average mAS-38 and kVp 120). 1.25 mm axial source images with a slice interval of 1.25-mm were reconstructed in lung windows. 2.5 mm axial source images with a slice interval of 2.5-mm were reconstructed in lung windows. 5.0 mm axial source images with a slice interval of 5.0-mm were reconstructed in soft tissue windows. Nodule measured using lung windows on PACS and/or independent workstation with automated measurement of minimum and maximum diameter. Nodule measurement reported as average diameter rounded to the nearest whole number. Growth is defined as an increase ins size of greater than 1.5 mm. COMPARISON: None. NODULES: No suspicious nodules are seen. Emphysema: No radiological evidence of emphysema. Mild scarring in the anterior aspect of the right upper lobe. Aorta: Atherosclerotic calcification. Coronary arteries: Coronary artery calcification. Heart: Unremarkable. Pulmonary artery: Unremarkable. Mediastinal nodes: Small benign-appearing mediastinal lymph nodes. Other chest and abdominal findings: Degenerative changes of the thoracic vertebra. CT/Low Dose CT Lung Screening IMPRESSION: Lung-RADS category 2 - Continue annual screening with LDCT in 12 months. IMPORTANT NOTES FOR USE: ACR Lung-RADS Version 1.0 Assessment Categories Release Date: June 29, 2013 Category: Coded 0-4 bases on nodule(s) with highest degree of suspicion. Negative screen is defined as categories 1 and 2; a positive screen is defined as categories 3 and 4. Category 3 and 4A nodules that are unchanged on interval CT should be coded as category 2, and individuals returned to screening in 12 months. Category 4X: Category 3 or 4 nodules with additional imaging findings that increase the suspicion of lung cancer, such as spiculation, GGN that doubles in size in 1 year, enlarged lymph notes, etc. Category Modifiers: S (significant finding unrelated to lung cancer) and C (prior history of treated lung cancer) may be added to the 0-4 Lung-RADS Electronically Signed: Max Olsen, at 13:08 EDT , Service support ,
== END | disposition home or self-care (01) ==
PROVIDERS: Family Provider Family Medicine; PCP Family Medicine; Referring Provider Nurse Practitioner Family; Visit Provider Nurse Practitioner Family
DX: Z12.2 Encounter for screening for malignant neoplasm of respiratory organs (principal); Z87.891 Personal history of nicotine dependence
CPT/HCPCS: G0297

== ENCOUNTER → 2018-12-12 | Outpatient (CLI) | payer MEDICARE, OTHER, SELFPAY ==
[2018-11-25 12:04] VITALS: BMI 29.8
[2018-12-12 12:34] LABS: Erythrocyte Sedimentation Rate 13 mm/hr (0-30)
[2018-12-12 12:40] LABS: Absolute Lymphocyte Count 2.66 X10^3/uL (0.83-4.51); Absolute Neutrophil Count 3.6 X10^3/uL (2.0-7.7); Basophil# 0.04 X10^3/uL; Basophil% 0.6 % (0-1); Eosinophil# 0.05 X10^3/uL; Eosinophils% 0.7 % (0-5); Hematocrit 46.2 % (37-47); Hemoglobin 14.9 g/dL (12.0-15.0); Lymphocyte # 2.66 X10^3/ul (4.0); Lymphocyte % 38.3 % (19-41); Mean Corp Hgb Conc 32.3 g/dL (32-36); Mean Corpuscular Hgb 30.8 pg (27.0-32.0); Mean Corpuscular Volume 95.7 fL (81-99); Monocyte# 0.54 X10^3/uL; Monocyte% 7.8 % (0-10); NRBC Flagged by Analyzer 0 % (0-5); Neutrophil # 3.57 X10^3/uL (2.7-7.7); Neutrophil % 51.4 % (47-70); Platelet Count 287 K/mm3 (150-450); RBC Distribution Width CV 13.3 % (11.6-14.6); RBC Distribution Width SD 46.7 fl (35.1-43.9); Red Blood Count 4.83 M/mm3 (4.2-5.4); White Blood Count 6.9 K/mm3 (4.4-11.0)
[2018-12-12 12:44] LABS: ALB/GLOB Ratio 1.1 RATIO (0.9-2.4); AST(SGOT) 13 U/L (15-37); Alanine Aminotransfer ALT/SGPT 20 U/L (13-56); Albumin, Serum 3.7 g/dL (3.2-5.0); Alkaline Phosphatase 67 U/L (45-117); Anion Gap 7 (5-15); BUN 16 mg/dL (7-18); BUN/Creat Ratio 19.8 RATIO (10-20); CRP 4.26 mg/L (0.0-3.0); Calcium,Total 8.9 mg/dL (8.5-10.1); Chloride 108 mmol/L (98-107); Creatinine, Serum 0.81 mg/dL (0.55-1.02); EST Glomerular Filtration Rate 74 mL/min (>60); Est Glom Filt Rate - Afr Amer 89 mL/min (>60); Globulin 3.5 g/dL (2.2-4.2); Glucose 124 mg/dL (74-106); Protein, Total 7.2 g/dL (6.4-8.2); Rheumatoid Factor < 10.0 IU/mL (<15); Sodium Level 142 mmol/L (136-145)
[2018-12-12 12:49] LABS: Vitamin D,25 Hydroxy 55.7 ng/mL (29.95-100.01)
[2018-12-14 08:37] LABS: CCP IgG Antibodies 10 units (0-19)
[2018-12-15 16:08] LABS: Anti-Centromere B Ab <0.2 AI (0.0-0.9); Anti-Chromatin 0.2 AI (0.0-0.9); Anti-Jo <0.2 AI (0.0-0.9); Anti-Scleroderma-70 AB <0.2 AI (0.0-0.9); Anti-ribosomal P Antibodies <0.2 AI (0.0-0.9); RNP Ab <0.2 AI (0.0-0.9); SJOGREN'S Anti-SS-A test < 0.2 AI (0.0-0.9); SJOGREN'S Anti-SS-B test 1.2 AI (0.0-0.9); Smith Ab <0.2 AI (0.0-0.9); Smith/RNP Ab <0.2 AI (0.0-0.9)
[2018-12-15 20:51] LABS: Anti-dsDNA Ab <1 IU/mL (0-9)
== END | disposition home or self-care (01) ==
LOC: BFHLAB 10:42
PROVIDERS: Family Provider Family Medicine; PCP Family Medicine; Visit Provider Family Medicine
DX: M06.4 Inflammatory polyarthropathy (principal); E55.9 Vitamin D deficiency, unspecified; E78.5 Hyperlipidemia, unspecified; E66.9 Obesity, unspecified
CPT/HCPCS: 36415; 80053; 82306; 85025; 85652; 86038; 86140; 86200; 86225; 86235; 86431

== ENCOUNTER → 2018-12-30 | Outpatient (CLI) | payer MEDICARE, OTHER, SELFPAY ==
[2018-11-25 12:04] VITALS: BMI 29.8
[2018-12-30 15:18] LABS: Absolute Lymphocyte Count 1.52 X10^3/uL (0.83-4.51); Absolute Neutrophil Count 9.1 X10^3/uL (2.0-7.7); Basophil# 0.04 X10^3/uL; Basophil% 0.4 % (0-1); Eosinophil# 0.01 X10^3/uL; Eosinophils% 0.1 % (0-5); Hematocrit 43.2 % (37-47); Hemoglobin 14.2 g/dL (12.0-15.0); Lymphocyte # 1.52 X10^3/ul (4.0); Lymphocyte % 13.7 % (19-41); Mean Corp Hgb Conc 32.9 g/dL (32-36); Mean Corpuscular Hgb 31.2 pg (27.0-32.0); Mean Corpuscular Volume 94.9 fL (81-99); Mean Platelet Vol. 9.8 fl (6.2-12.0); Monocyte% 3.6 % (0-10); NRBC Flagged by Analyzer 0 % (0-5); Neutrophil # 9.05 X10^3/uL (2.7-7.7); Neutrophil % 81.7 % (47-70); Platelet Count 295 K/mm3 (150-450); RBC Distribution Width CV 14.1 % (11.6-14.6); RBC Distribution Width SD 49.3 fl (35.1-43.9); Red Blood Count 4.55 M/mm3 (4.2-5.4); White Blood Count 11.1 K/mm3 (4.4-11.0)
[2018-12-30 15:49] LABS: ALB/GLOB Ratio 1.1 RATIO (0.9-2.4); AST(SGOT) 10 U/L (15-37); Alanine Aminotransfer ALT/SGPT 20 U/L (13-56); Albumin, Serum 3.9 g/dL (3.2-5.0); Alkaline Phosphatase 58 U/L (45-117); Anion Gap 9 (5-15); BUN 27 mg/dL (7-18); BUN/Creat Ratio 33.8 RATIO (10-20); Calcium,Total 9.2 mg/dL (8.5-10.1); Chloride 106 mmol/L (98-107); EST Glomerular Filtration Rate 75 mL/min (>60); Est Glom Filt Rate - Afr Amer 90 mL/min (>60); Globulin 3.4 g/dL (2.2-4.2); Glucose 139 mg/dL (74-106); Potassium 3.7 mmol/L (3.5-5.1); Protein, Total 7.3 g/dL (6.4-8.2); Sodium Level 140 mmol/L (136-145)
[2018-12-31 10:40] LABS: Hepatitis B Surface Antibody Non-Reactive; Hepatitis B Surface Antigen Non-Reactive (Nonreactive); Hepatitis C Antibody Non-Reactive (Nonreactive)
[2019-01-01 16:07] LABS: SJOGREN'S Anti-SS-A test < 0.2 AI (0.0-0.9)
[2019-01-01 21:22] LABS: ANTINUCLEAR ANTIBODIES DIRECT Positive (Negative)
[2019-01-06 16:45] LABS: HLA B27 Negative (.); Hepatitis B Core AB IgM Negative (Negative)
== END | disposition home or self-care (01) ==
LOC: MTLAB 14:13
PROVIDERS: Family Provider Family Medicine; PCP Family Medicine; Referring Provider Internal Medicine Rheumatology; Visit Provider Internal Medicine Rheumatology
DX: M06.4 Inflammatory polyarthropathy (principal); M16.0 Bilateral primary osteoarthritis of hip; M51.37 Other intervertebral disc degeneration, lumbosacral region; E78.5 Hyperlipidemia, unspecified; Z85.42 Personal history of malignant neoplasm of other parts of uterus
CPT/HCPCS: 36415; 80053; 81374; 85025; 86038; 86235; 86705; 86706; 86803; 87340

== ENCOUNTER → 2019-01-19 | Outpatient (CLI) | payer MEDICARE, OTHER, SELFPAY ==
[2018-11-25 12:04] VITALS: BMI 29.8
--- NOTE | 2019-01-19 11:00 | RAD_ITS ---
STUDY: X-RAY - LEFT KNEE REASON FOR EXAM: Female, 73 years old. Injury 10 days ago TECHNIQUE: 4 view(s) of the knee. COMPARISON: Prior study of 06/24/2017 FINDINGS: Normal visualized distal femur. Normal visualized proximal tibia and fibula. Normal proximal tibiofibular articulation. There is mild degenerative arthrosis of the medial femorotibial compartment. Normal lateral femorotibial compartment. Normal patellofemoral articulation. The soft tissue structures are unremarkable. RAD/Knee 4 or More Views IMPRESSION: Mild degenerative changes of the medial knee compartment. There is no evidence of fracture, dislocation, free intra-articular calcifications, or suprapatellar effusion. Electronically Signed: Chris Garland MD at 19:29 EST , Service support ,
== END | disposition home or self-care (01) ==
LOC: MTRAD 10:29
PROVIDERS: Family Provider Family Medicine; PCP Family Medicine; Referring Provider Family Medicine; Visit Provider Family Medicine
DX: M89.8X6 Other specified disorders of bone, lower leg (principal)
CPT/HCPCS: 73564

== ENCOUNTER → 2019-01-23 09:02 | Outpatient (CLI) | payer MEDICARE, OTHER, SELFPAY ==
[2018-11-25 12:04] VITALS: BMI 29.8
[2019-01-24 13:01] LABS: Cancer Antigen 125 15.6 U/mL (0.0-38.1)
== END ==
PROVIDERS: Family Provider Family Medicine; PCP Family Medicine; Referring Provider Obstetrics & Gynecology Gynecologic Oncology; Visit Provider Obstetrics & Gynecology Gynecologic Oncology
DX: C54.1 Malignant neoplasm of endometrium (principal)
CPT/HCPCS: 36415; 86304

== ENCOUNTER → 2019-02-27 09:47 | Outpatient (CLI) | payer MEDICARE, OTHER, SELFPAY ==
[2018-11-25 12:04] VITALS: BMI 29.8
[2019-02-27 12:21] LABS: Absolute Lymphocyte Count 2.85 X10^3/uL (0.83-4.51); Absolute Neutrophil Count 4.4 X10^3/uL (2.0-7.7); Basophil# 0.04 X10^3/uL; Basophil% 0.5 % (0-1); Eosinophil# 0.04 X10^3/uL; Eosinophils% 0.5 % (0-5); Hematocrit 42.7 % (37-47); Hemoglobin 14.1 g/dL (12.0-15.0); Lymphocyte # 2.85 X10^3/ul (4.0); Lymphocyte % 34.8 % (19-41); Mean Corpuscular Hgb 31.5 pg (27.0-32.0); Mean Corpuscular Volume 95.5 fL (81-99); Mean Platelet Vol. 9.7 fl (6.2-12.0); Monocyte# 0.79 X10^3/uL; Monocyte% 9.7 % (0-10); NRBC Flagged by Analyzer 0 % (0-5); Neutrophil # 4.42 X10^3/uL (2.7-7.7); Platelet Count 334 K/mm3 (150-450); RBC Distribution Width CV 14.4 % (11.6-14.6); RBC Distribution Width SD 49.4 fl (35.1-43.9); Red Blood Count 4.47 M/mm3 (4.2-5.4); White Blood Count 8.2 K/mm3 (4.4-11.0)
[2019-02-27 12:33] LABS: ALB/GLOB Ratio 1.2 RATIO (0.9-2.4); AST(SGOT) 14 U/L (15-37); Alanine Aminotransfer ALT/SGPT 29 U/L (13-56); Alkaline Phosphatase 61 U/L (45-117); Anion Gap 7 (5-15); BUN 21 mg/dL (7-18); Calcium,Total 9.6 mg/dL (8.5-10.1); Chloride 109 mmol/L (98-107); Creatinine, Serum 0.88 mg/dL (0.55-1.02); EST Glomerular Filtration Rate 67 mL/min (>60); Est Glom Filt Rate - Afr Amer 81 mL/min (>60); Globulin 3.4 g/dL (2.2-4.2); Glucose 96 mg/dL (74-106); Potassium 3.9 mmol/L (3.5-5.1); Protein, Total 7.4 g/dL (6.4-8.2); Sodium Level 143 mmol/L (136-145)
== END ==
PROVIDERS: Family Provider Family Medicine; PCP Family Medicine; Referring Provider Internal Medicine Rheumatology; Visit Provider Internal Medicine Rheumatology
DX: M06.4 Inflammatory polyarthropathy (principal); M35.00 Sjogren syndrome, unspecified; M16.0 Bilateral primary osteoarthritis of hip; M51.37 Other intervertebral disc degeneration, lumbosacral region; E78.5 Hyperlipidemia, unspecified; Z85.42 Personal history of malignant neoplasm of other parts of uterus; Z79.899 Other long term (current) drug therapy
CPT/HCPCS: 36415; 80053; 85025

== ENCOUNTER 2019-07-22 05:27 | Day surgery (SDC) | payer MEDICARE, OTHER, SELFPAY ==
[2018-11-25 12:04] VITALS: BMI 29.8
--- NOTE | 2019-07-14 09:58 | EKG12_ITS ---
Test Reason : PRE OP Blood Pressure : / mmHG Vent. Rate : 075 BPM Atrial Rate : 075 BPM P-R Int : 188 ms QRS Dur : 074 ms QT Int : 378 ms P-R-T Axes : 031 010 034 degrees QTc Int : 422 ms Sinus rhythm /Sinus arrhythmia Otherwise normal ECG Confirmed by JOSEPH HARRINGTON, SERAFIN ([id number]), fashion editor JENNIFER HEMPHILL ([id number]) on 07/15/2019 10:16:27 AM Referred By: Ozzy Obando Confirmed By:SERAFIN RUIZ MD
[2019-07-14 10:40] LABS: Absolute Lymphocyte Count 2.88 X10^3/uL (0.83-4.51); Absolute Neutrophil Count 3.7 X10^3/uL (2.0-7.7); Basophil# 0.04 X10^3/uL; Basophil% 0.5 % (0-1); Eosinophil# 0.05 X10^3/uL; Eosinophils% 0.7 % (0-5); Hematocrit 47.3 % (37-47); Hemoglobin 15.4 g/dL (12.0-15.0); Lymphocyte # 2.88 X10^3/ul (4.0); Lymphocyte % 39.3 % (19-41); Mean Corp Hgb Conc 32.6 g/dL (32-36); Mean Corpuscular Hgb 31.4 pg (27.0-32.0); Mean Corpuscular Volume 96.3 fL (81-99); Mean Platelet Vol. 9.8 fl (6.2-12.0); Monocyte# 0.65 X10^3/uL; Monocyte% 8.9 % (0-10); NRBC Flagged by Analyzer 0 % (0-5); Neutrophil # 3.66 X10^3/uL (2.7-7.7); Neutrophil % 50.1 % (47-70); Platelet Count 297 K/mm3 (150-450); RBC Distribution Width CV 13.3 % (11.6-14.6); RBC Distribution Width SD 47.3 fl (35.1-43.9); Red Blood Count 4.91 M/mm3 (4.2-5.4); White Blood Count 7.3 K/mm3 (4.4-11.0)
[2019-07-14 11:04] LABS: Anion Gap 8 (5-15); BUN 23 mg/dL (7-18); BUN/Creat Ratio 29.1 RATIO (10-20); Calcium,Total 9.4 mg/dL (8.5-10.1); Chloride 105 mmol/L (98-107); Creatinine, Serum 0.79 mg/dL (0.55-1.02); EST Glomerular Filtration Rate 76 mL/min (>60); Est Glom Filt Rate - Afr Amer 91 mL/min (>60); Glucose 98 mg/dL (74-106); Potassium 4.1 mmol/L (3.5-5.1); Sodium Level 140 mmol/L (136-145)
--- NOTE | 2019-07-14 13:46 | PCM.HP.BLA ---
History and Physical History and Physical [facility] Patient Name: Jill Kim : 1945 From: MJ CAZARES PA-C DATE OF SURGERY: 07/22/2019 SCHEDULED PROCEDURE: left total hip arthroplasty HISTORY OF PRESENT ILLNESS: Preoperative history and physical exam was performed on July 14, 2019. This is a 74-year-old female who has been having ongoing pain in her left hip for the past 1-2 years. Pain can reach his high as a 9/10 with activities. Her pain has been constant, dull, aching. Patient has increased pain going up and down stairs, walking, driving. She does have start up pain. Patient has difficulty with activities of daily living including housework, shopping, leisure activities such as golfing. She has tripped/stumbled and fallen secondary to her left hip. Patient states the pain does wake her at night. Patient has been through formal physical therapy, home exercises with no relief in symptoms. She has attempted ice and heat and elevation with only minimal relief. Patient has tried oral medications consisting of Advil, prednisone with no relief in symptoms. Patient has had an intra-articular injection which only gave her couple days of relief. Her hip has continued to progressively get worse. She gets left groin pain and lateral hip pain. She has had no previous surgeries. She does use a cane occasionally. She denies any recent fevers, chills, recent infections. We are obtaining surgical clearance from the primary care physician Dr. Andrews. After discussion with Dr. Ozzy Obando, the patient does wish to proceed with a right total hip arthroplasty. Patient has a medical history pertinent for hypercholesterolemia and previous endometrial cancer. REVIEW OF SYSTEMS: ROS: Const: Reports weight change, but denies change in appetite and fever. CV: Denies chest pain, heart murmur and irregular heartbeat. Resp: Denies cough, pneumonia, shortness of breath, tuberculosis and wheezing. GI: Reports constipation, but denies diarrhea, heartburn, nausea, rectal itching, bloody stools and vomiting. : Denies incontinence. Musculo: Reports gait disturbance, but denies leg swelling, pain, trouble walking and weakness. Skin: Denies Raynaud's, history of shingles and tattoo. Neuro: Denies ambulatory dysfunction, dizziness, numbness/tingling and tremor. Psych: Denies anxiety, insomnia and stress. León/Lymph: Denies anemia, bleeding/bruising tendency and past transfusion. Reviewed, no changes. PAST MEDICAL HISTORY: Advance Care Plan: Other Directive, POA Effective Date: 07/11/2017 Other Directive, LIVING WILL Effective Date: 07/11/2017 PMH: Medical Problems: Arthritis, Cancer, Hypercholesterolemia Accidents: None Surgical Hx: Hysterectomy - 2013 DR SUSAN FLORES [facility] [place] Endometrial Cancer - 2014 DR SUSAN FLORES LT Hip Injection - (12/05/2018) [email or web address] Anesthesia Complications: None Assistive Devices: Glasses Reviewed, no changes. SOCIAL HISTORY: SH: Marital: .Occupation: Retired.Work Status: Retired.Hand Dominance: Right-handed. Personal Habits: Smoking: Patient is a former smoker.Cigarette Use: Former.Alcohol: Denies use.Drug Use: Denies Use.Enjoy Exercising: Daily. Reviewed, no changes. VITALS: Ht: 62 Wt: 161lb Wt k.030 BMI: 29.4 BP: 152/92 Pulse: 90 Resp: 18 T: 97.6 T: 36.4C ALLERGIES: No Known Drug Allergy MEDICATIONS: Oxycodone HCL 5 mg 1-2 tab by mouth every 4 hours, Meloxicam 7.5 mg 1 by mouth twice a day, Promethazine HCL 12.5 mg 1-2 tablets by mouth every 6 hours, Famotidine 20 mg 1 by mouth every day, Simvastatin 20 mg 1 by mouth every day, Vitamin D-3 6000 Unit 1x/day by mouth, Coq10 100 mg po one daily, Krill Fish Oil 500 mg. po one daily, Acetaminophen 325 mg as needed, Folic Acid 1 mg 2po qd PRE-OP EXAM: General appearance:NORMAL Other: Eyes: Conjunctivae and lids: NORMAL Pupils: ERR Ears, Nose, Mouth, and Throat: NORMAL Other: Inspection of lips, teeth and gums: NORMAL Other: Neck: Examination of neck: no masses noted. Respiratory: Assessment of respiratory effort: NORMAL Other: Auscultation of lungs: clear to auscultation no wheezes, rhonchi or rales. Cardiovascular: Auscultation of heart: regular rate and rhythm, no murmurs, gallops or rubs. Exam of carotid arteries: NORMAL Other: Gastrointestinal: Exam of abdomen: soft, nontender, nondistended bowel sounds present. PHYSICAL EXAMINATION: She does walk with an antalgic gait. Left hip is cool to touch without erythema or signs of infection. Range of motion left hip: 75 flexion with increased pain, internal rotation 5, external rotation 25. Decreased strength left hip secondary to pain. Patient does have obligatory external rotation with flexion bilaterally. Sensation intact to light touch. Neurovascularly intact. IMAGING STUDIES: Radius x-rays of left hip reveal joint space narrowing, subchondral sclerosis, osteophyte formation consistent with progressive stage IV severe osteoarthritis. IMPRESSION: 1. Severe left hip osteoarthritis 2. Hypercholesterolemia 3. Previous history of endometrial cancer PLAN: Dr. Ozzy Obando did discuss and review with the patient all treatment options including surgical versus nonsurgical options. Patient does wish to proceed with the above-stated procedure. Potential risks, benefits, and complications of the procedure were discussed in detail including but not limited to , infection, nerve and blood vessel damage, persistent pain, numbness, tingling, paresthesias, blood clot, pulmonary embolism, and requirement for possible further surgery. The patient expressed full understanding and has no further questions for the doctor. Patient does agree to proceed with the above-stated procedure and has signed the surgery consent form. We discussed the current risks associated with COVID 19. This does include the risk of exposure while in the hospital. Patient was reassured local hospitals have low infection rates and are taking all necessary precautions to avoid exposure to patients. In addition, we discussed strategies that can be used to help limit exposure including those that limit the patient's time in the hospital. Also using strategies to limit the patient's need for continued inpatient services after being discharged from the hospital. Patient was notified that we will need to comply with any screening or testing the hospital wishes to perform or that surgery may be delayed for any positive results. This dictation was created using voice recognition software. Phonetic and/or grammatical errors may exist. ___ I have re-examined the patient. There are no clinical changes since date of exam. ___ See progress notes for changes. ___ Dictated on admission Date: Time: Signature:
[2019-07-22] VITALS (15 sets, daily range): BP systolic 115–136; BP diastolic 50–81; PULSE 55–92; RESP 15–16; TEMP 36.4–37.1; O2SAT 93–100; BMI 29.4
[2019-07-22 05:51] LABS: Bedside Glucose 107 mg/dL (70-110)
[2019-07-22] MEDS: Acetaminophen 500 MG Tablet 1000 MG PO (06:04)
[2019-07-22] MEDS: Celecoxib 200 MG Capsule 400 MG PO (06:05)
[2019-07-22] MEDS: Gabapentin 600 MG Tablet PO (06:06)
[2019-07-22] MEDS: Lactated Ringers 1,000 ML 999 ML IV (06:19)
--- NOTE | 2019-07-22 06:57 | RAD_ITS ---
STUDY: X-RAY - PELVIS AND LEFT HIP REASON FOR EXAM: Female, 74 years old. Post op THR TECHNIQUE: 2 views of the pelvis and left hip. COMPARISON: 08/29/2018. FINDINGS: There is a non-specific bowel gas pattern. Normal visualized soft tissue structures. Normal bilateral iliac wings, sacroiliac joints and visualized sacrum. Normal bilateral superior and inferior pubic rami. Normal pubic symphysis. Normal bilateral ischial tuberosities. Left metallic hip arthroplasty is intact. The acetabular and femoral components are in good anatomic alignment. Normal right femoral head. Normal right acetabulum. Pronounced narrowing of the right upper joint space is unchanged. RAD/Hip Min 2 Views (Portable) IMPRESSION: 1. Pronounced at due to narrowing of the right upper and joint space is unchanged. 2. Interval left metallic hip arthroplasty with overlying soft tissue swelling when compared to 08/29/2018. Electronically Signed: Home Vines MD at 10:04 EDT , Service support ,
[2019-07-22] MEDS: Lactated Ringers 1,000 ML 125 ML IV ×2 (07:00→10:35)
[2019-07-22] MEDS: Cefazolin 2 GM in 0.9% Normal Saline 100 ML IV (07:24)
[2019-07-22] MEDS: Lactated Ringers 1,000 ML 500 ML IV (07:30)
--- NOTE | 2019-07-22 08:15 | RAD_ITS ---
STUDY: X-RAY - PELVIS AND LEFT HIP REASON FOR EXAM: Female, 74 years old. ERAS, total hip anterior approach TECHNIQUE: 1 fluoroscopic digital spot radiograph of the left hip. COMPARISON: AP pelvis 08/29/2018. FINDINGS: Single fluoroscopic digital spot radiograph of the left hip showing left metallic hip arthroplasty. The acetabular and femoral components are in good anatomic alignment.. RAD/Hip 1 view with Pelvis IMPRESSION: Normal intraoperative single fluoroscopic digital spot radiograph of left metallic hip arthroplasty. Electronically Signed: Home Vines MD at 9:38 EDT , Service support ,
--- NOTE | 2019-07-22 08:45 | PCM.OPRPT ---
Report of Operation Date of Procedure: 07/22/19 Pre-Operative Diagnosis: Left hip primary osteoarthritis Post-Operative Diagnosis: Left hip primary osteoarthritis Surgery/Procedure Performed:: Left hip minimally invasive direct anterior arthroplasty Description of Surgical Findings:: Stable hip with equal leg lengths modern languages professor: Carol Yang Type of Anesthesia:: Spinal Anesthesiologist: John Tai Special Medications: 2 g Ancef, 1 g TXA at incision, 1 g TXA closure, 10 mg Decadron, joint cocktail (5 mg Duramorph, 30 mL of 0.5% Ropivicaine, 1000 units of epinephrine, 30 mg of Toradol) Specimen's removed: Bony cuts Estimated Blood Loss (mL): 200 Fluids Replaced: 600 mL crystalloid Description of Procedure: Components used: 1. Accolade 2 Autumn femoral stem size 5 127? 2. Autumn trident 2 acetabular shell size 48 mm 3. Autumn X3 polyethylene D 4. Autumn Biolox delta 36mm, -2.5mm femoral head Brief history operative indications: 74 yo F who failed conservative measures for their hip osteoarthritis. X-rays were consistent with osteoarthritis including joint space narrowing, osteophyte formation and subchondral cysts. Total hip replacement was discussed with the patient with risks and benefits including but not limited to blood loss, DVTs, PEs, neurovascular damage, dislocation, general risks of anesthesia including loss of life. Patient demonstrated an understanding medical clearance is obtained the patient was consented for surgery. Procedure: On the date of procedure the patient's L hip was marked in the preoperative area. Patient was then taken back to the operating room where anesthesia assumed control of the C-spine and airway and administered anesthetic. Patient was transferred to the operating table and placed in the supine position. The hips were placed at the break of the bed and a sacral bump was placed. The L lower extremity was then prepped out in a sterile fashion using chlorhexidine while the surgeon scrubbed. The PA was vital in the positioning of the patient. Upon reentering the room the L lower extremity was draped in the standard orthopedic fashion and the incision was marked. A timeout was called and everyone agreed upon the side, the site, the procedure be performed, antibody given, and patient's identity. At this time incision was made through skin, subcutaneous tissue, and fat down to fascia. The fascia was then incised and the TFL was retracted laterally. A retractor was placed on the lateral border of the femoral neck. Attention was directed to the inferior portion of the approach and all crossing vessels were identified and appropriately coagulated. A retractor was then placed on the medial portion of the femoral neck. The anterior capsule was then cleared of all soft tissue and then H shaped capsulotomy was made. The retractors were then placed inside the capsule. The femoral neck was identified and a cleanup cut was made. At this time a power corkscrew was used to remove the femoral head. Attention was then turned toward the acetabulum where the soft tissues were appropriately retracted and the acetabulum was sequentially reamed to 48 mm. A 48 mm cup was then selected and impacted into place. Acetabular liner was impacted into place and locking mechanism was verified. The position of the acetabular cup was then verified under live fluoroscopy. Attention was then turned to the femur. Soft tissue releases on the medial and lateral femoral neck were appropriately done, the leg was externally rotated and lateralized. A Mabry retractor was placed medially and proximally to the greater trochanter this allowed appropriate visualization and exposure of the femoral canal. Rongeour was then used to remove excess lateral bone. A canal finder and entry broach were used to open the proximal canal. Once we verified we were down the femoral canal we subsequently broached up to a size 5 femur. The appropriate neck was placed in the previously selected head was trialed with a -2.5 mm neck. Traction was pulled and the hip was reduced with internal rotation. Once it was appropriately reduced and stability was checked. There was minimal shuck, equal leg lengths and appropriate stability with hyperextension and external rotation as well as with 90? flexion and internal rotation. Fluoroscopy was then also used to verify the position of the components and leg lengths using the contralateral side for comparison. The trial components were then dislocated the proximal femur was again exposed and the components were removed from the wound. The final components were verified and opened. The wound was copiously irrigated out with normal saline. The acetabulum was checked for any residual debris. The final components were placed and impacted. Traction and internal rotation were again used to reduce the hip. After adequate reduction the hip remained stable with appropriate leg lengths. The final components were once again checked with live fluoroscopy and were found to be satisfactory. The wound was then copiously irrigated with normal saline once more, and hemostasis was obtained. Closure was then done using #1 Vicryl runner to close the fascia. A 2-0 vicryl interuppted sutures were used to close the subcutaneous skin. A 3-0 Monocryl and Steri-Strips were used for final skin closure. A Silverlon dressing was placed. Patient was awakened by anesthesia and transferred to the [facility]. Patient was then transferred to the PACU for recovery. Postoperative plan: Patient will get 24 hours postop antibiotics. Patient will get in-house physical therapy and will be weight-bear as tolerated. Patient will follow up in office in 2 weeks for a wound check and x-rays. Grafts/Implants Used: Autumn - Complications No intraoperative complications - Admit VTE Documentation VTE Present on Admission: No VTE Mechan Device Prophylaxis: SCD's, Thigh High JAREN Hose VTE Pharm Prophylaxis ordered?: Yes
[2019-07-22] MEDS: Cefazolin 1 GM/50 ML BAG IV (14:05)
== END 2019-07-22 14:35 | disposition home or self-care (01) ==
LOC: SDC 05:28 → AC 05:28
PROVIDERS: PCP Family Medicine; Referring Provider Specialist; Visit Provider Specialist
PROC: (CPT 27284; principal; 2019-07-22 07:05)
DX: M16.12 Unilateral primary osteoarthritis, left hip (principal); E78.00 Pure hypercholesterolemia, unspecified; Z85.42 Personal history of malignant neoplasm of other parts of uterus; Z11.59 Encounter for screening for other viral diseases; Z79.899 Other long term (current) drug therapy; Z87.891 Personal history of nicotine dependence
CPT/HCPCS: 01214; 27130; 36415; 73501; 73502; 76000; 80048; 82962; 85025; 87081; 87635; 93005; 97162; 97166; C1776; G2023; J7120; J2405; U0002

== ENCOUNTER → 2019-08-04 | Outpatient (CLI) | payer MEDICARE, OTHER, SELFPAY ==
[2019-07-22 05:54] VITALS: BMI 29.4
[2019-08-05 09:40] LABS: Cancer Antigen 125 11.2 U/mL (0.0-38.1)
== END | disposition home or self-care (01) ==
LOC: MTLAB 09:49
PROVIDERS: PCP Family Medicine; Referring Provider Obstetrics & Gynecology Gynecologic Oncology; Visit Provider Obstetrics & Gynecology Gynecologic Oncology
DX: C54.1 Malignant neoplasm of endometrium (principal)
CPT/HCPCS: 36415; 86304

== ENCOUNTER → 2019-12-08 | Outpatient (CLI) | payer MEDICARE, OTHER, SELFPAY ==
[2019-07-22 05:54] VITALS: BMI 29.4
--- NOTE | 2019-12-08 12:28 | CT_ITS ---
STUDY: CT CHEST WITHOUT CONTRAST- LOW DOSE SCREENING PROTOCOL REASON FOR EXAM: Female, 74 years old. Former smoker. Quit smoking less than 5 years ago. 40 pack per year history. No current symptoms of lung cancer or pulmonary infection. Shared decision-making with referring PCP documented in patient''s record. RADIATION DOSAGE (If Supplied By Facility): CTDIvol = ( 3.02 ) mGy, DLP = ( 103.45 ) mGycm TECHNIQUE: Low dose screening CT examination performed from the base of the neck to the upper abdomen. Sagittal and coronal reformatted images performed. Sagittal and coronal MIP images provided. The measurements provided are average, rounded measurements per ACR guidelines. COMPARISON: 11/25/2018 FINDINGS: 4 mm noncalcified nodule in the left upper lobe lungs on image 68 and follow-up CT is recommended in 12 months document stability. There is no demonstrated pleural abnormality. Normal heart and pericardium. There are calcifications of the coronary arteries. Normal mediastinum. Normal hilar regions. Normal unenhanced pulmonary arteries. Normal aorta arch and descending thoracic aorta. Normal osseous structures. There is no demonstrated abnormality of the visualized upper abdomen. CT/Low Dose CT Lung Screening IMPRESSION: 1. 4 mm noncalcified left upper lobe nodule and follow-up CT is recommended in 12 months to document stability.. 2. Incidental findings include calcified coronary plaque.. ASSESSMENT CATEGORY: LungRADS 2 - Benign Appearance or Behavior. Continue annual screening with LDCT in 12 months, per established ACR guidelines. Electronically Signed: Gabino Bhakta MD at 13:07 EDT Tel , Service support ,
== END | disposition home or self-care (01) ==
LOC: CT 12:28
PROVIDERS: PCP Nurse Practitioner; Referring Provider Nurse Practitioner Family; Visit Provider Nurse Practitioner Family
DX: Z87.891 Personal history of nicotine dependence (principal); Z12.2 Encounter for screening for malignant neoplasm of respiratory organs
CPT/HCPCS: G0297

== ENCOUNTER → 2019-12-11 | Outpatient (CLI) | payer MEDICARE, OTHER, SELFPAY ==
[2019-07-22 05:54] VITALS: BMI 29.4
[2019-12-11 12:23] LABS: Absolute Lymphocyte Count 2.79 X10^3/uL (0.83-4.51); Absolute Neutrophil Count 3.3 X10^3/uL (2.0-7.7); Basophil# 0.04 X10^3/uL; Basophil% 0.6 % (0-1); Eosinophil# 0.05 X10^3/uL; Eosinophils% 0.7 % (0-5); Hematocrit 48.4 % (37-47); Hemoglobin 15.4 g/dL (12.0-15.0); Lymphocyte # 2.79 X10^3/ul (4.0); Lymphocyte % 40.2 % (19-41); Mean Corp Hgb Conc 31.8 g/dL (32-36); Mean Corpuscular Hgb 29.6 pg (27.0-32.0); Mean Corpuscular Volume 93.1 fL (81-99); Mean Platelet Vol. 10.1 fl (6.2-12.0); Monocyte% 10.1 % (0-10); NRBC Flagged by Analyzer 0 % (0-5); Neutrophil # 3.34 X10^3/uL (2.7-7.7); Neutrophil % 48.1 % (47-70); Platelet Count 326 K/mm3 (150-450); RBC Distribution Width CV 13.5 % (11.6-14.6); RBC Distribution Width SD 46.3 fl (35.1-43.9); White Blood Count 6.9 K/mm3 (4.4-11.0)
[2019-12-11 12:47] LABS: ALB/GLOB Ratio 0.9 RATIO (0.9-2.4); AST(SGOT) 12 U/L (15-37); Alanine Aminotransfer ALT/SGPT 19 U/L (13-56); Albumin, Serum 3.7 g/dL (3.2-5.0); Alkaline Phosphatase 87 U/L (45-117); Anion Gap 7 (5-15); BUN 20 mg/dL (7-18); BUN/Creat Ratio 23.2 RATIO (10-20); Calcium,Total 9.4 mg/dL (8.5-10.1); Chloride 106 mmol/L (98-107); Cholesterol 257 mg/dL (200); Creatinine, Serum 0.86 mg/dL (0.55-1.02); EST Glomerular Filtration Rate 68 mL/min (>60); Est Glom Filt Rate - Afr Amer 83 mL/min (>60); Globulin 3.9 g/dL (2.2-4.2); Glucose 94 mg/dL (74-106); High Density Lipoprotein 58 mg/dL; Protein, Total 7.6 g/dL (6.4-8.2); Sodium Level 139 mmol/L (136-145); Thyroid Stim Hormone (TSH) 1.46 uIU/mL (0.358-3.74); Triglycerides 368 mg/dL; Very Low Density Lipoprotein 74 mg/dL (5-40)
[2019-12-11 12:59] LABS: Hemoglobin A1c 5.9 % (3.8-5.6)
[2019-12-11 14:22] LABS: Vitamin D,25 Hydroxy 59.8 ng/mL
== END | disposition home or self-care (01) ==
LOC: BFHLAB 10:21
PROVIDERS: PCP Family Medicine; Visit Provider Family Medicine
DX: E55.9 Vitamin D deficiency, unspecified (principal); E78.5 Hyperlipidemia, unspecified; R73.01 Impaired fasting glucose; D75.1 Secondary polycythemia
CPT/HCPCS: 36415; 80053; 80061; 82306; 83036; 84443; 85025

== ENCOUNTER → 2019-12-30 | Outpatient (CLI) | payer MEDICARE, OTHER, SELFPAY ==
[2019-07-22 05:54] VITALS: BMI 29.4
[2019-12-25 09:31] VITALS: BMI 29.4
--- NOTE | 2019-12-30 13:35 | BI_ITS ---
MAMMOGRAPHY - BILATERAL SCREENING REASON FOR EXAM: Female, 74 years old. Routine annual screening examination. PERTINENT HISTORY: Aunt with breast cancer. TECHNIQUE: Digital bilateral breast js (3D mammographic acquisition) in the CC and MLO projections. 2-D mediolateral oblique (MLO) and craniocaudad (CC) views of both breasts were obtained. CAD: Full Field Digital Mammography with Computer Added Detection was performed. COMPARISON: Comparison is made with prior study dated 07/03/2018 and 11/22/2016. FINDINGS: Breast Composition: The breasts are heterogeneously dense, which may obscure small masses. There are no dominant masses or suspicious calcifications. Stable small benign appearing bilateral axillary lymph nodes. No other significant abnormalities are identified. There has been no significant change since the prior study. BI/SCREEN MAMM (CAD) W/JS BILAT IMPRESSION: Stable bilateral screening mammogram. Yearly follow-up mammogram recommended. (A) ASSESSMENT CATEGORY: BIRADS Category 2: Benign. A letter regarding these results will be sent to the patient by the facility within 30 days. Approximately 10% of breast cancers are not detected by mammography. A normal mammogram should not delay biopsy of a clinically suspicious abnormality. [id number] Electronically Signed: Max Olsen, at 14:34 EDT , Service support ,
== END | disposition home or self-care (01) ==
LOC: OPBI 13:33
PROVIDERS: PCP Nurse Practitioner; Referring Provider Family Medicine; Visit Provider Family Medicine
DX: Z12.31 Encounter for screening mammogram for malignant neoplasm of breast (principal)
CPT/HCPCS: 77063; 77067

== ENCOUNTER → 2020-01-02 08:48 | Outpatient (CLI) | payer MEDICARE, OTHER, SELFPAY ==
[2019-12-25 09:31] VITALS: BMI 29.4
--- NOTE | 2020-01-02 08:48 | CT_ITS ---
CT of the left hip without contrast INDICATION: Left hip pain. History of arthroplasty. COMPARISON: X-ray 07/22/2019 TECHNIQUE: Multiple thin section axial CT images the left hip were obtained without the administration of intravenous contrast and filmed in soft tissue and bone windows. Furthermore, multiple sagittal and coronal reconstructions were performed. Dose limiting techniques were utilized. FINDINGS: No abnormal soft tissue mass, lymphadenopathy, fluid collection. No acute fracture or dislocation. No lytic or blastic lesions. The patient is status post left hip arthroplasty which appears intact. No ostial lysis to suggest loosening... No large joint effusion. IMPRESSION: Normal CT the left hip after arthroplasty. Electronically Signed: Gabino Bhakta MD at 9:36 EDT Tel , Service support , CT/Extremity Lower without Contra
== END ==
PROVIDERS: PCP Family Medicine; Referring Provider Orthopaedic Surgery; Visit Provider Orthopaedic Surgery
DX: Z96.642 Presence of left artificial hip joint (principal)
CPT/HCPCS: 73700

== ENCOUNTER → 2020-02-01 08:55 | Outpatient (CLI) | payer MEDICARE, OTHER, SELFPAY ==
[2019-12-25 09:31] VITALS: BMI 29.4
[2020-02-02 08:34] LABS: Cancer Antigen 125 15.4 U/mL (0.0-38.1)
== END ==
PROVIDERS: PCP Family Medicine; Referring Provider Obstetrics & Gynecology Gynecologic Oncology; Visit Provider Obstetrics & Gynecology Gynecologic Oncology
DX: C54.1 Malignant neoplasm of endometrium (principal)
CPT/HCPCS: 36415; 86304

== ENCOUNTER 2020-03-03 09:30 | Outpatient (RCR) | payer MEDICARE, OTHER, SELFPAY ==
[2019-12-25 09:31] VITALS: BMI 29.4
--- NOTE | 2020-02-03 15:35 | HP.PTEVAL_ITS ---
Patient's Visit Information RAMOS PADRON is a 74 year old F referred to Physical Therapy by Dr. Mariano David DO with a diagnosis of Left Shoulder Impingment.. Date of Evaluation: 02/03/20 Physical Therapist: Mary Lou Rivera DPT - Visit Plan Frequency: 2x /Week Duration: 4 Weeks Plan: Focus on scapular strength/stabilization - Subjective Left Shoulder- it has been bothering her for 2-3 months- indious onset. She falls a lot and thinks she might have landed on it. She fell yesterday- and her MD knows that she is falling. Right hand dominate. RTC tear on the right side which came from a fall. Pain is located in the top of the shoulder- and radiates to the elbow- and the shoulder blade. No neck pain, blurred vision or dizzines, no PORTILLO. Describes the shoulder pain as dull and achy. Worst: 10/10 Agg: moving the arm, laying on it, lifting heavy things. Best: 0/10 Eases: injection, ice. Did have an injection on Saturday which has improved a great deal-90% better. No problems with finger dexterity and line mechanic strength. Sleep: Not since the injection- she was a side and belly sleeper but now she is trying to stay on her back. Fully I with dressing, driving, bathing, cooking, cleaning. Does not use a cane or walker since her hip surgery. She normally falls fowards ex: getting her shoes out of the closet. Has had x-rays of the shoulder but no MRI. PMHx/Meds: no changes since saw Dr. Medina- has not taken Stephens xicam yet but has it to start- picked it up today. - Objective Posture: FH, RS- can correct but does not maintain. Gait: no deviation noted- good arm swing and rotation. Palpation: tender along upper trap. ROM: finger dexterity: WNL, elbow/wrist: WNL, Shoulder: WNL in all planes, Cervical: WNL. Sensation: WNL. Strength: Scap: fair- no noticable winging of scapula, Sh oulder: 4+/5 throughout Elbow/Wrist: 5/5 Instrument Adjuster: WNL. Special Test: impingement: positive, Empty Can: negative - Goals Goal 1:: Patient will be I with HEP and progression Goal Time Frame: 4-6 Weeks Goal 2:: Patient will maintain proper posture t/o tx session to demo increased scap s/s Goal Time Frame: 4-6 Weeks Goal 3:: Patient will report no pain for 1 week Goal Time Frame: 4-6 Weeks - Rehabilitation Potential Physical Therapy Diagnosis: Patient presents with hypomobility- she has decreased strength and muscular endurance leading to poor posture and shoulde impingment. Rehabilitation Potential: Fair - Anticipated Interventions Patient/Client Instruction: Educate patient on: Benefits of Fitness Program Therapeutic Exercise to Include: Strength training, Endurance training, Coordination, Body mechanics, Postural training, Flexibilty training, Neuromotor development, Passive ROM, Active ROM, Dynamic Lumbar Stabilization, Scapular Strength/Stabilization For the Purpose of:: To improve muscle performance and motor function TENS: Yes Cryotherapy (ice pack, ice massage): Yes Thermo therapy (hot pack): Yes Ultrasound (thermal/non thermal): Yes Thank you for the opportunity to evaluate your patient. For Medicare and Medicare HMO plans, please review the plan of care and approve it. It will need to be FAXED BACK to us at [phone] for Medicare purposes. For Medicare only, by signing this I certify the plan of care. Please let me know if there are questions or concerns regarding this plan of care. Physician Signature: Date:
--- NOTE | 2020-03-03 09:49 | HP.PTDCSUM ---
It has been my pleasure to treat RAMOS PADRON referred by Dr. Mariano David DO, with the diagnosis of Left Shoulder Impingment. for a total of 9 visit(s). Discharge Date: Please see the following information for a summary of their discharge status. Subjective: She reports that the shoulder is much better- she does still have some pain but it comes and goes. She feels that she can continue to do the exercises at home. % Improvement: 85 Objective/Function: Posture: FH, RS- can correct but does not maintain. Gait: no deviation noted- good arm swing and rotation. Palpation:not tender to touch. ROM: finger dexterity: WNL, elbow/wrist: WNL, Shoulder: WNL in all planes, Cervical: WNL. Sensation: WNL. Strength: Scap: fair- no noticable winging of scapula, Shoulder: 5/5 throughout Elbow/Wrist: 5/5 Wastewater Project Engineer: WNL. Special Test: impingement: positive, Empty Can: negative Goal 1:: Patient will be I with HEP and progression Goal Progress: Goal Met Goal 2:: Patient will maintain proper posture t/o tx session to demo increased scap s/s Goal Progress: Goal Met Goal 3:: Patient will report no pain for 1 week Goal Progress: Goal Met Plan: Discharge to home exercise program If there are questions or concerns regarding this patient's physical therapy, please feel free to call me at [phone]. Thank you for the referral of this patient. Sincerely, OPAL FranciscoT
== END 2020-03-03 12:15 | disposition home or self-care (01) ==
LOC: PT 09:30
PROVIDERS: PCP Family Medicine; Referring Provider Orthopaedic Surgery; Visit Provider Orthopaedic Surgery
DX: M75.42 Impingement syndrome of left shoulder (principal)
CPT/HCPCS: 97110; 97161; 97164

== ENCOUNTER → 2020-05-20 08:56 | Outpatient (CLI) | payer MEDICARE, OTHER, SELFPAY ==
[2019-12-25 09:31] VITALS: BMI 29.4
--- NOTE | 2020-05-20 09:01 | RAD_ITS ---
STUDY: X-RAY - RIGHT HAND REASON FOR EXAM: Female, 74 years old. Pain. TECHNIQUE: 2 view(s) of the hand. COMPARISON: None. FINDINGS: There is joint space narrowing of the radiocarpal articulation consistent with degenerative arthrosis. Normal distal radioulnar joint. Normal visualized carpal bones. There is degenerative joint disease of the scaphotrapezium / trapezoid articulation. The remainder of the carpal articulations are normal. There is degenerative arthrosis of the carpometacarpal (CMC) articulation of the thumb. Normal second through fifth carpometacarpal joints. Normal metacarpi. There is minimal degenerative arthrosis of the first metacarpophalangeal (MCP) joint. Normal interphalangeal joint of the thumb. Normal proximal and distal phalanges of the thumb. Normal metacarpophalangeal joints of the second through fifth fingers. Normal proximal and distal interphalangeal joints of the second through fifth fingers. There is bony productivity off the lateral aspect of the takeoff of the third digit. Is most likely secondary to prior trauma. Less likely possibilities are osteochondroma or malignancy. Otherwise normal phalanges of the second through fifth fingers. The soft tissue structures are unremarkable. RAD/Hand 2 Views IMPRESSION: 1. Arthritic changes of the right hand and wrist. 2. Bony productivity off the tip of the third distal phalanx. Electronically Signed: Nico Michaels DO at 17:00 EDT Tel [phone], Service support ,
--- NOTE | 2020-05-20 09:01 | RAD_ITS ---
STUDY: X-RAY - LEFT HAND REASON FOR EXAM: Female, 74 years old. Pain. TECHNIQUE: 2 view(s) of the hand. COMPARISON: None. FINDINGS: Normal radiocarpal articulation. Normal distal radioulnar joint. Normal visualized carpal bones. Normal carpal articulations There is degenerative arthrosis of the carpometacarpal articulation of the thumb with lateral subluxation of the first metacarpus. Normal second through fifth carpometacarpal joints. Normal metacarpi. There is mild degenerative arthrosis of the first metacarpophalangeal (MCP) joint. Normal interphalangeal joint of the thumb. Normal proximal and distal phalanges of the thumb. Normal metacarpophalangeal joints of the second through fifth fingers. Normal proximal and distal interphalangeal joints of the second through fifth fingers. Normal phalanges of the second through fifth fingers. The soft tissue structures are unremarkable. RAD/Hand 2 Views IMPRESSION: Arthritic changes of the hand and wrist without acute fracture or dislocation. Electronically Signed: Nico Michaels DO at 16:57 EDT Tel [phone], Service support ,
== END ==
PROVIDERS: PCP Family Medicine
DX: M25.59 Pain in other specified joint (principal)
CPT/HCPCS: 73120

== ENCOUNTER → 2020-06-30 12:05 | Outpatient (CLI) | payer MEDICARE, OTHER, SELFPAY ==
[2019-12-25 09:31] VITALS: BMI 29.4
--- NOTE | 2020-06-30 12:13 | MRI_ITS ---
STUDY: MRI RIGHT HAND REASON FOR EXAM: Female, 75 years old. RT HAND, ABNORMAL XR-INCREASED BONY PRODUCTIVITY 3RD PHALANX -- HX INFLAMMATORY ARTHRITIS, ? EROSIONS no contrast due to gfr 47 TECHNIQUE: Standardized fat and water weighted pulse sequences were obtained in all 3 orthogonal planes. COMPARISON: X-ray dated 05/20/2020. FINDINGS: FIRST DIGIT: Mild first carpal metacarpal joint arthrosis. Normal first metacarpophalangeal joint. Normal interphalangeal joint. Normal metacarpal. Proximal and distal phalanx intact. Normal flexor and extensor tendon. SECOND DIGIT: Moderate second carpometacarpal joint arthrosis. Normal second metacarpal phalangeal joint. Mild joint space narrowing at the proximal and distal interphalangeal joints. Cysts/erosions at the second metacarpal base. Proximal, middle and distal phalanx intact. Normal flexor and extensor tendon. THIRD DIGIT: Normal third metacarpophalangeal joint. Normal proximal and interphalangeal joints. Normal metacarpal phalangeal joint. Normal proximal and middle phalanx. Bony production at the distal phalanx extending radially. Region of interest measures approximately 5 mm x 4.5 mm. No overlying skin erosion. Minimal bone marrow edema (coronal image 13 series 3). Mild soft tissue swelling. Trace third digit flexor peritendinitis (axial image 26 series 7). Normal extensor tendon. FOURTH DIGIT: Normal metacarpal phalangeal joint. Normal carpometacarpal joint. Normal proximal interphalangeal joint. Mild distal interphalangeal joint space narrowing. Middle, proximal distal phalanx intact. Normal flexor and extensor tendon. FIFTH DIGIT: Normal metacarpal phalangeal joint. Mild metacarpal phalangeal joint space narrowing. Mild proximal and distal interphalangeal joint space narrowing. Normal metacarpal. Normal proximal, middle and distal phalanx. Normal flexor and extensor tendon. No solid, cystic or lipomatous soft tissue lesions. No significant soft tissue swelling. No significant joint effusions. 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
[2020-06-30 12:31] LABS: CREATININE FINGERSTICK 1.2 mg/dL (0.55-1.02)
== END ==
PROVIDERS: Internal Medicine Nephrology; PCP Family Medicine
DX: M25.59 Pain in other specified joint (principal)
CPT/HCPCS: 73218

== ENCOUNTER → 2020-08-02 09:10 | Outpatient (CLI) | payer MEDICARE, OTHER, SELFPAY ==
[2020-07-07 13:44] VITALS: BMI 29.4
[2020-08-03 12:52] LABS: Cancer Antigen 125 13.7 U/mL (0.0-38.1)
== END ==
PROVIDERS: PCP Family Medicine; Referring Provider Obstetrics & Gynecology Gynecologic Oncology; Visit Provider Obstetrics & Gynecology Gynecologic Oncology
DX: C54.1 Malignant neoplasm of endometrium (principal)
CPT/HCPCS: 36415; 86304

== ENCOUNTER → 2020-08-12 08:10 | Outpatient (CLI) | payer MEDICARE, OTHER, SELFPAY ==
[2020-08-03 10:53] VITALS: BMI 29.4
[2020-08-12 10:17] LABS: BUN 19 mg/dL (7-18); Creatinine, Serum 0.92 mg/dL (0.55-1.02); EST Glomerular Filtration Rate 63 mL/min (>60); Est Glom Filt Rate - Afr Amer 76 mL/min (>60)
== END ==
PROVIDERS: PCP Family Medicine; Referring Provider Obstetrics & Gynecology Gynecologic Oncology; Visit Provider Obstetrics & Gynecology Gynecologic Oncology
DX: C54.1 Malignant neoplasm of endometrium (principal)
CPT/HCPCS: 36415; 82565; 84520

== ENCOUNTER → 2020-08-25 10:59 | Outpatient (CLI) | payer MEDICARE, OTHER, SELFPAY ==
[2020-08-03 10:53] VITALS: BMI 29.4
--- NOTE | 2020-08-25 11:11 | MRI_ITS ---
STUDY: MRI BRAIN WITH AND WITHOUT CONTRAST REASON FOR EXAM: Female, 75 years old. HEADACHES, recent falls, hit posterior head 1 1/2 wks ago TECHNIQUE: Standardized multiplanar fat and water weighted pulse sequences were obtained. 15ml IV Dotarem was administered for the contrast portion of the examination. COMPARISON: None. FINDINGS: There is moderate cerebral atrophy with widening of the extra-axial spaces and ventricular dilatation. There are a limited number of small white matter hyperintensities, distributed throughout the deep white matter tracts of the cerebral hemispheres, consistent with mild chronic white matter ischemic changes. There is no evidence for recent intracranial ischemia or other cause of cytotoxic edema on diffusion weighted imaging (DWI). Normal T2* images of the brain without demonstrated susceptibility artifact. There is no demonstrated hemosiderin stain. Normal bilateral basal ganglia. Normal thalami. There is no extra-axial fluid accumulation. Normal flow voids within the major intracranial circulation suggesting patency by spin echo criteria. Normal venous enhancement. There is no enhancing intra-axial or extra-axial abnormality. Normal sella turcica, pituitary gland, infundibular stalk, optic chiasm and hypothalamus. Normal tectal plate and pineal gland. Normal midbrain, felix and medulla. Normal cerebellum. Normal basal cisterns. Normal bilateral temporal bones. Normal bilateral internal auditory canals. No demonstrated orbital abnormality, within the constraints of a routine brain study. Normal visualized paranasal sinuses. Normal calvarium and skull base. Normal visualized soft tissue structures. Normal visualized upper cervical spine. MRI/Brain W/WO Contrast IMPRESSION: Involutional changes of the brain, as described above. No acute infarct. Electronically Signed: Gabino Bhakta MD at 18:17 EDT Tel , Service support ,
== END ==
PROVIDERS: PCP Family Medicine; Referring Provider Family Medicine; Visit Provider Family Medicine
DX: R51.9 Headache, unspecified (principal)
CPT/HCPCS: 70553; A9575

== ENCOUNTER → 2021-01-30 09:11 | Outpatient (CLI) | payer MEDICARE, OTHER, SELFPAY ==
[2021-01-31 08:55] LABS: Cancer Antigen 125 14.9 U/mL (0.0-38.1)
== END ==
PROVIDERS: PCP Family Medicine; Referring Provider Obstetrics & Gynecology Gynecologic Oncology; Visit Provider Obstetrics & Gynecology Gynecologic Oncology
DX: C54.1 Malignant neoplasm of endometrium (principal)
CPT/HCPCS: 36415; 86304; 97110

== ENCOUNTER → 2021-01-31 14:07 | Outpatient (CLI) | payer MEDICARE, OTHER, SELFPAY ==
--- NOTE | 2021-01-31 14:08 | CT_ITS ---
STUDY: LOW DOSE CT LUNG CANCER SCREENING REASON FOR EXAM: Female, 75 years old. Lung cancer screening -- 40 pk yr hx;former smoker; asymptomatic RADIATION DOSAGE (If Supplied By Facility): CTDIvol = ( 3.02 ) mGy, DLP = ( 84.98 ) mGycm TECHNIQUE: No contrast was administered. Low dose technique was utilized (average mAS-38 and kVp 120). 1.25 mm axial source images with a slice interval of 1.25-mm were reconstructed in lung windows. 2.5 mm axial source images with a slice interval of 2.5-mm were reconstructed in lung windows. 5.0 mm axial source images with a slice interval of 5.0-mm were reconstructed in soft tissue windows. Nodule measured using lung windows on PACS and/or independent workstation with automated measurement of minimum and maximum diameter. Nodule measurement reported as average diameter rounded to the nearest whole number. Growth is defined as an increase ins size of greater than 1.5 mm. COMPARISON: Comparison is made with prior study 12/08/2019. NODULES: Stable 4 mm noncalcified nodule in the anterior aspect of the left upper lobe. Emphysema: Minimal degree of linear scarring at the lung bases. Endobronchial lesion: None Aorta: Atherosclerotic plaque formation. Coronary arteries: Mild coronary artery calcification. Heart: Unremarkable Pulmonary artery: Unremarkable Mediastinal nodes: Small mediastinal lymph nodes. Other chest and abdominal findings: CT/Low Dose CT Lung Screening IMPRESSION: Lung-RADS category 2 - Continue annual screening with LDCT in 12 months. IMPORTANT NOTES FOR USE: ACR Lung-RADS Version 1.1 Assessment Categories Release Date: 2018 Category: Coded 0-4 bases on nodule(s) with highest degree of suspicion. Negative screen is defined as categories 1 and 2; a positive screen is defined as categories 3 and 4. Category 3 and 4A nodules that are unchanged on interval CT should be coded as category 2, and individuals returned to screening in 12 months. Category 4X: Category 3 or 4 nodules with additional imaging findings that increase the suspicion of lung cancer, such as spiculation, GGN that doubles in size in 1 year, enlarged lymph notes, etc. Category Modifiers: S (significant finding unrelated to lung cancer) Electronically Signed: Max Olsen MD at 14:44 EST , Service support ,
== END ==
PROVIDERS: PCP Family Medicine; Referring Provider Nurse Practitioner Family; Visit Provider Nurse Practitioner Family
DX: Z87.891 Personal history of nicotine dependence (principal); Z12.2 Encounter for screening for malignant neoplasm of respiratory organs
CPT/HCPCS: 71271

== ENCOUNTER 2021-03-01 11:00 | Outpatient (RCR) | payer MEDICARE, OTHER, SELFPAY ==
--- NOTE | 2020-11-02 15:11 | HP.PTEVAL_ITS ---
Patient's Visit Information RAMOS PADRON is a 75 year old F referred to Physical Therapy by Dr. Roel Mcmahon MD with a diagnosis of glute medius and minimus repair, L trochanteric bursectomy. Date of Evaluation: 10/28/20 Physical Therapist: Esdras Durbin DPT - Visit Plan Frequency: 2x /Week Duration: 12 weeks Plan: 1)Start with long axis distraction, PROM into flexion (pain free ranges). 2) Add in sub maximal hip isometrics (varying hip flexion degrees) next visit. 3)progress per protocol as tolerated. 4) cautious with walking due to L shoulder pain. She has limited ER strength. Concerns of RTC tear vs tendonitis - Subjective Pt. is here today for her initial evaluation with diagnosis of L hip scope in AYAN with glute medius and minimus repair, L trochanteric bursectomy. DOS: 10/10/20. Pt. reports having surgery for a total hip arthroplasty ~1 year ago, which helped, but was still having some pain. Pt. was then referred to Dr. Mcmahon for consultation finding the tearing of her glute medius and minimus. Pt. decided to have surgery to correct. She reports overall doing well. She has some slight tingling at her L lateral thigh. Prior to surgery she did fall going up a flight of stairs onto her L shoulder and has been having pain since. Pt. did have injection in her shoulder, which helped for a few days. She is currently non WBing on her LLE and due to her limited strength, and increased pain in her shoulder she has not been walking due to fear of not being able to complete. Pt. has been using a WC for most of her mobility and doing transfers with stand pivoting from wc to surface. Pt. has not been doing any exercises at this point in time. She is hopeful to get back to walking 3-5 miles per day and golfing without difficulty. - Pain L gluteal region Pain Intensity (Out of 10): 0 Pain Intensity Range: 0, 4 - Objective POSTURE: Pt. has decent posture in sitting position. Pt. is able to stand at walker with good NWBing on the LLE. Pt. tends to keep her L UE in slight anterior, guarded positioning. PALPATION: Pt. has good healing incision at her hip. Pt. has slight mild increased hyper sensitivity at L anterior/lateral thigh. Pt. has tenderness at L hip flexor, TFL, along IT band and gluteal region. She is also having pain at anterior L shoulder near supraspinatus insertion, not much pain bicipital groove. NEURO: pt. has normal sensation, except slight hyper sensitivity at L anterior thigh. Normal DTR of B patellar and Achilles tendons. ROM: L hip: PROM: flexion 90deg, abd DNT , ext 0deg. Tightness in B HS. L shoulder: AROM: flexion 165deg increase NW, functional IR L5 increase NW, functional ER to C2 increase NW, abd 140deg increase NE. MMT: did not test L hip due to surgery. RLE 5/5 throughout. L shoulder- IR 5/5, ER 4- /5, abd 4-/5 increase NW. GAIT: I did not stress gait today due to L shoulder pain/injury and NWBing on her LLE. Pt. is able to complete transfers well without issues. - Goals Goal 1:: LTG: Pt. to be I with HEP. Goal Time Frame: 4-6 Weeks Goal 2:: STG: Pt. to sleep throughout the night without increase in symptoms. Goal Time Frame: 2 Weeks Goal 3:: LTG: Pt. to have full ROM of L hip allowing progression to strengthening Goal Time Frame: 4-6 Weeks Goal 4:: LTG: Pt. to have increased tolerance to walking without increase in L hip pain community distances 300'+. Goal Time Frame: 4-6 Weeks Goal 5:: LTG: Pt. to have increased LLE strength to at least 4+/5 throughout. Goal Time Frame: 6-8 Weeks Goal 6:: LTG: Pt. to have full ROM of L shoulder without increase in symptoms. Goal Time Frame: 4-6 Weeks - Rehabilitation Potential Physical Therapy Diagnosis: Pt. has signs and symptoms consistent with glute medius and minimus repair, L trochanteric bursectomy. Pt. has subsequent hypomobility, weakness, and difficulty walking. Pt. would benefit from PT to address the above limitations progressing per protocol as tolerated. Rehabilitation Potential: Excellent - Anticipated Interventions Patient/Client Instruction: Educate patient on: Condition, Plan of Care, Risk Factors, Benefits of Fitness Program For the Purpose of:: To improve decision making, To facilitate caregiver knowledge, To improve self management, To prevent re-injury, To improve ability to perform tasks related to life management Therapeutic Exercise to Include: Strength training, Power training, Endurance training, Postural training, Flexibilty training, Gait and locomotor training, Passive ROM, Active ROM, Dynamic Lumbar Stabilization For the Purpose of:: To decrease pain, To decrease swelling/inflammation, To increase ROM, To improve nutrient delivery to tissue, To increase oxygenation perfusion, To improve muscle performance and motor function, To improve ability to perform ADL's, To improve gait and locomotor functions, To improve health of tissue, To decrease soft tissue restriction, To increase flexibility/ROM Manual Therapy Techniques to Include: Soft tissue mobilization For the Purpose of:: To decrease pain, To decrease swelling/inflammation, To increase ROM, To improve nutrient delivery to tissue, To increase oxygenation perfusion Thank you for the opportunity to evaluate your patient. For Medicare and Medicare HMO plans, please review the plan of care and approve it. It will need to be FAXED BACK to us at [phone] for Medicare purposes. For Medicare only, by signing this I certify the plan of care. Please let me know if there are questions or concerns regarding this plan of care. Physician Signature: Date:____
--- NOTE | 2020-11-28 10:23 | HP.PTREVAL ---
Dr. Roel Mcmahon MD, It has been my pleasure to treat RAMOS PADRON over the last 10 visits for glute medius and minimus repair, L trochanteric bursectomy. Please see the progress note below for an update on the physical therapy plan of care! Subjective: Pt. reports overall improving. Pt. has some thigh soreness today. She is now able to progress form 25-50% WBAT on her LLE to tolerance. Pt. is still having L shoulder pain as well. HEP compliant. Objective/Function: I added all the above exercises to HEP. COnt. to progress per protocol. Pt. is 7 weeks out of surgery. Ease into exercises, continue with progressing stretching and adding in functional strengthening. ROM before strength. ROM: L hip: flexion 120deg, abd 45deg, ER 45deg, IR not tested, ext 10deg. MMT: Ankle 5/5 throughout; knee: ext 4+/5, flexion 4+/5; hip- flexion 4/5, abd 4-/5, ext 4-/5. GAIT: Pt. is able to ambulate with FWW with improved pattern, maintaining proper WBing. No pain with walking. She does has decreased R stance phase with gait, but otherwise doing well. Plan Plan: COnt. to progress per protocol. Pt. is 7 weeks out of surgery. Ease into exercises, continue with progressing stretching and adding in functional strengthening. ROM before strength. Balance/Gait/Functional tests - Balance/Special Test Scores Lower Extremity Functional Score: 19 Goals Goal 1:: LTG: Pt. to be I with HEP. Goal Time Frame: 4-6 Weeks Goal Progress: Progressing Goal 2:: STG: Pt. to sleep throughout the night without increase in symptoms. Goal Time Frame: 2 Weeks Goal Progress: Goal Met Goal 3:: LTG: Pt. to have full ROM of L hip allowing progression to strengthening Goal Time Frame: 4-6 Weeks Goal Progress: Progressing Goal 4:: LTG: Pt. to have increased tolerance to walking without increase in L hip pain community distances 300'+. Goal Time Frame: 4-6 Weeks Goal Progress: Progressing Goal 5:: LTG: Pt. to have increased LLE strength to at least 4+/5 throughout. Goal Time Frame: 6-8 Weeks Goal Progress: Progressing Goal 6:: LTG: Pt. to have full ROM of L shoulder without increase in symptoms. Goal Time Frame: 4-6 Weeks Goal Progress: Progressing Anticipated Interventions Patient/Client Instruction: Educate patient on: Condition, Plan of Care, Risk Factors, Benefits of Fitness Program For the Purpose of:: To improve decision making, To facilitate caregiver knowledge, To improve self management, To prevent re-injury, To improve ability to perform tasks related to life management Therapeutic Exercise to Include: Strength training, Power training, Endurance training, Postural training, Flexibilty training, Gait and locomotor training, Passive ROM, Active ROM, Dynamic Lumbar Stabilization For the Purpose of:: To decrease pain, To decrease swelling/inflammation, To increase ROM, To improve nutrient delivery to tissue, To increase oxygenation perfusion, To improve muscle performance and motor function, To improve ability to perform ADL's, To improve gait and locomotor functions, To improve health of tissue, To decrease soft tissue restriction, To increase flexibility/ROM Manual Therapy Techniques to Include: Soft tissue mobilization For the Purpose of:: To decrease pain, To decrease swelling/inflammation, To increase ROM, To improve nutrient delivery to tissue, To increase oxygenation perfusion Please do not hesitate to contact me at [phone] by phone or if you have questions or concerns regarding this new plan of care! Sincerely, Esdras Durbin DPT
--- NOTE | 2021-01-09 12:21 | HP.PTREVAL_ITS ---
Dr. Roel Mcmahon MD, It has been my pleasure to treat RAMOS PADRON over the last 19 visits for glute medius and minimus repair, L trochanteric bursectomy. Please see the progress note below for an update on the physical therapy plan of care! Subjective: Pt states she had a fall getting out of bed this week, and had a doctor visit where she was cleared and had no further injuries found. Pt reports she is a little sore today. Objective/Function: Pt flexibility has improved, gait continues to improve. ROM: Pt. has closed to full ROM of her L hip without issues. Pt. continues to feel stretch with HS stretching, figure 5 stretching and with quincy stretching. I would like her to continue to work on these, but not aggressively. MMT: LLE- ankle- 5/5 throughout, hip- flexion 4/5, abd 4/5, ext 4/5, knee- 5/5 throughout. GAIT: Pt. is walking well, but is still having some pain in her hip after falling the other day. She is using cane for a little bit of stability, but is only lightly using. She to talk to shoulder surgeon about her L shoulder later this week. Plan Plan: Continue to progress strengthening and stretching exercises. I would like her to cont. to work on ROM and progress strengthening per protocol. Balance/Gait/Functional tests - Balance/Special Test Scores Lower Extremity Functional Score: 19 Goals Goal 1:: LTG: Pt. to be I with HEP. Goal Time Frame: 4-6 Weeks Goal Progress: Progressing Goal 2:: STG: Pt. to sleep throughout the night without increase in symptoms. Goal Time Frame: 2 Weeks Goal Progress: Goal Met Goal 3:: LTG: Pt. to have full ROM of L hip allowing progression to strength ening Goal Time Frame: 4-6 Weeks Goal Progress: Progressing Goal 4:: LTG: Pt. to have increased tolerance to walking without increase in L hip pain community distances 300'+. Goal Time Frame: 4-6 Weeks Goal Progress: Progressing Goal 5:: LTG: Pt. to have increased LLE strength to at least 4+/5 throughout. Goal Time Frame: 6-8 Weeks Goal Progress: Progressing Goal 6:: LTG: Pt. to have full ROM of L shoulder without increase in symptoms. Goal Time Frame: 4-6 Weeks Goal Progress: Progressing Anticipated Interventions Patient/Client Instruction: Educate patient on: Condition, Plan of Care, Risk Factors, Benefits of Fitness Program For the Purpose of:: To improve decision making, To facilitate caregiver knowledge, To improve self management, To prevent re-injury, To improve ability to perform tasks related to life management Therapeutic Exercise to Include: Strength training, Power training, Endurance training, Postural training, Flexibilty training, Gait and locomotor training, Passive ROM, Active ROM, Dynamic Lumbar Stabilization For the Purpose of:: To decrease pain, To decrease swelling/inflammation, To increase ROM, To improve nutrient delivery to tissue, To increase oxygenation perfusion, To improve muscle performance and motor function, To improve ability to perform ADL's, To improve gait and locomotor functions, To improve health of tissue, To decrease soft tissue restriction, To increase flexibility/ROM Manual Therapy Techniques to Include: Soft tissue mobilization For the Purpose of:: To decrease pain, To decrease swelling/inflammation, To increase ROM, To improve nutrient delivery to tissue, To increase oxygenation perfusion Please do not hesitate to contact me at [phone] by phone or if you have questions or concerns regarding this new plan of care! Sincerely, Esdras Durbin DPT
--- NOTE | 2021-02-28 09:00 | HP.PTREVAL ---
Dr. Roel Mcmahon MD, It has been my pleasure to treat RAMOS PADRON over the last 28 visits for glute medius and minimus repair, L trochanteric bursectomy. Please see the progress note below for an update on the physical therapy plan of care! Subjective: Pt. arrives today and did not have L shoulder surgery as expected. She reports surgeon had to cancel and is going to have surgery next month. Pt. reports overall her hip is doing better, but did fall out of bed ~4 weeks ago. She was checked out by surgeon who reports she is doing okay. Objective/Function: ROM: pt. has good ROM of her L hip, WNL without reports of pain. Normal HS length. MMT: ankle 5/5 throughout; knee: 5/5 throughout; hip- flexion 4+/5, abd 4+/5; ext 4+/5. Core strength: fair. GAIT: pt. ambulates with SPC with good pattern most of the time. She does start to have a more shuffling pattern. VCing and she is able to correct. She has similar pattern with her gait without AD. STAIRS: normal reciprocal pattern with 1 HR both ascending and descending. TU.4 sec without AD. 6 MWT: No AD 811feet. Vcing for proper step length consistently. Plan Plan: Pt. to be seen for 1 more visit to further work on gait pattern and assist with developing progressive walking routine. Balance/Gait/Functional tests - Balance/Special Test Scores Lower Extremity Functional Score: 57 Goals Goal 1:: LTG: Pt. to be I with HEP. Goal Time Frame: 4-6 Weeks Goal Progress: Goal Met Goal 2:: STG: Pt. to sleep throughout the night without increase in symptoms. Goal Time Frame: 2 Weeks Goal Progress: Goal Met Goal 3:: LTG: Pt. to have full ROM of L hip allowing progression to strengthening Goal Time Frame: 4-6 Weeks Goal Progress: Goal Met Goal 4:: LTG: Pt. to have increased tolerance to walking without increase in L hip pain community distances 300'+. Goal Time Frame: 4-6 Weeks Goal Progress: Goal Met Goal 5:: LTG: Pt. to have increased LLE strength to at least 4+/5 throughout. Goal Time Frame: 6-8 Weeks Goal Progress: Goal Met Goal 6:: LTG: Pt. to have full ROM of L shoulder without increase in symptoms. Goal Time Frame: 4-6 Weeks Goal Progress: Progressing Anticipated Interventions Patient/Client Instruction: Educate patient on: Condition, Plan of Care, Risk Factors, Benefits of Fitness Program For the Purpose of:: To improve decision making, To facilitate caregiver knowledge, To improve self management, To prevent re-injury, To improve ability to perform tasks related to life management Therapeutic Exercise to Include: Strength training, Power training, Endurance training, Postural training, Flexibilty training, Gait and locomotor training, Passive ROM, Active ROM, Dynamic Lumbar Stabilization For the Purpose of:: To decrease pain, To decrease swelling/inflammation, To increase ROM, To improve nutrient delivery to tissue, To increase oxygenation perfusion, To improve muscle performance and motor function, To improve ability to perform ADL's, To improve gait and locomotor functions, To improve health of tissue, To decrease soft tissue restriction, To increase flexibility/ROM Manual Therapy Techniques to Include: Soft tissue mobilization For the Purpose of:: To decrease pain, To decrease swelling/inflammation, To increase ROM, To improve nutrient delivery to tissue, To increase oxygenation perfusion Please do not hesitate to contact me at [phone] by phone or if you have questions or concerns regarding this new plan of care! Sincerely, Esdras Durbin DPT
--- NOTE | 2021-03-17 16:35 | HP.PT.NRP ---
RAMOS PADRON was seen in my office for initial evaluation on 10/28/20. The following Plan of Care was established for this patient: Initial Frequency: 2x /Week Initial Duration: 12 weeks Patient/Client Instruction: Educate patient on: Condition, Plan of Care, Risk Factors, Benefits of Fitness Program For the Purpose of:: To improve decision making, To facilitate caregiver knowledge, To improve self management, To prevent re-injury, To improve ability to perform tasks related to life management Therapeutic Exercise to Include: Strength training, Power training, Endurance training, Postural training, Flexibilty training, Gait and locomotor training, Passive ROM, Active ROM, Dynamic Lumbar Stabilization For the Purpose of:: To decrease pain, To decrease swelling/inflammation, To increase ROM, To improve nutrient delivery to tissue, To increase oxygenation perfusion, To improve muscle performance and motor function, To improve ability to perform ADL's, To improve gait and locomotor functions, To improve health of tissue, To decrease soft tissue restriction, To increase flexibility/ROM Manual Therapy Techniques to Include: Soft tissue mobilization For the Purpose of:: To decrease pain, To decrease swelling/inflammation, To increase ROM, To improve nutrient delivery to tissue, To increase oxygenation perfusion This patient was last seen in our office 03/01/21. Pertinent comments regarding their Physical therapy will appear below: Pt. was treated for her glute Medius repair. Pt. did well, but as slow with her progression as she was limited with WBing on her shoulder. Pt. at her last appointment with was walking with a cane and doing well. She missed her last appointment then had L shoulder surgery. Pt. will be DC to her physician at this point in time. At this point I will be discontinuing this patient from physical therapy. I would be happy to see this patient again in the future if found appropriate by the physician. Thank you! Esdras Durbin, DPT Balance/Gait/Functional tests - Balance/Special Test Scores Lower Extremity Functional Score: 57
== END 2021-03-01 19:00 | disposition home or self-care (01) ==
LOC: PT 11:00
PROVIDERS: PCP Family Medicine; Referring Provider Orthopaedic Surgery Sports Medicine; Visit Provider Orthopaedic Surgery Sports Medicine
DX: M70.62 Trochanteric bursitis, left hip (principal); S46.012D Strain of muscle(s) and tendon(s) of the rotator cuff of left shoulder, subsequent encounter
CPT/HCPCS: 97110; 97140; 97161; 97164; 97530

== ENCOUNTER → 2021-07-11 | Outpatient (CLI) | payer MEDICARE, OTHER, SELFPAY ==
--- NOTE | 2021-07-11 12:09 | BI_ITS ---
MAMMOGRAPHY - BILATERAL SCREENING REASON FOR EXAM: Female, 76 years old. Routine annual screening examination. PERTINENT HISTORY: Aunt with breast cancer. TECHNIQUE: Digital bilateral breast js (3D mammographic acquisition) in the CC and MLO projections. 2-D mediolateral oblique (MLO) and craniocaudad (CC) views of both breasts were obtained. CAD: Full Field Digital Mammography with Computer Added Detection was performed. COMPARISON: Comparison is made with prior examination dated 12/30/2019 and 07/03/2018. FINDINGS: Breast Composition: The breasts are heterogeneously dense, which may obscure small masses. There are no dominant masses or suspicious calcifications. Stable small benign-appearing bilateral axillary lymph nodes. No other significant abnormalities are identified. There has been no significant change since the prior study. BI/SCRN MAMM (CAD)W/JS BILAT IMPRESSION: Stable bilateral screening mammogram. Yearly follow-up mammogram recommended. (A) ASSESSMENT CATEGORY: BIRADS Category 2: Benign. A letter regarding these results will be sent to the patient by the facility within 30 days. Approximately 10% of breast cancers are not detected by mammography. A normal mammogram should not delay biopsy of a clinically suspicious abnormality. [id number] Electronically Signed: Max Olsen MD at 13:37 EDT ,
== END | disposition home or self-care (01) ==
LOC: OPBI 12:08
PROVIDERS: PCP Family Medicine; Referring Provider Family Medicine; Visit Provider Family Medicine
DX: Z12.31 Encounter for screening mammogram for malignant neoplasm of breast (principal)
CPT/HCPCS: 77063; 77067

== ENCOUNTER 2021-07-27 10:30 | Outpatient (RCR) | payer MEDICARE, OTHER, SELFPAY ==
--- NOTE | 2021-03-20 09:21 | HP.PTEVAL_ITS ---
Patient's Visit Information RAMOS PADRON is a 75 year old F referred to Physical Therapy by Dr. Micheal Betancourt MD with a diagnosis of L Reverse TSA. Date of Evaluation: 03/17/21 Physical Therapist: Esdras Durbin DPT - Visit Plan Frequency: 3x /Week Duration: 6-8 weeks Plan: Start with PROM (flexion to 130dge, ER to 30deg). Progress per protocol. May use heat/ice for pain control. - Subjective Pt. is here today for her initial evaluation with diagnosis of L RTA. DOS: 03/13/21. Pt. reports overall doing okay, but she did arrive in a WC today. She did have a previous L hip surgery and was afraid of falling onto her L shoulder. Pt. reports having her stretching her and is doing some initial exercises at home. She reports having increased pain, but is tolerating okay. Taking pain meds as prescribed. Pt. denies N/T. No radiating pain, no chest pain and no shortness of breath. Pt. is having some trouble with sleeping. She is wearing her sling as prescribed. Pt. to follow up with physician in 4 weeks. Pt. is hopeful to increase her ROM and decrease her pain and get back to all functional activities without limitations. - Pain L shoulder Pain Intensity (Out of 10): 5 Pain Intensity Range: 4, 9 - Objective POSTURE: Pt. is sitting in WC, able to sit at edge of bed without issues. Pt. has L shoulder in sling and/or in guarded posture. Pt. has normal shoulder heights. PALPATION: Pt. has normal healing anterior incision. No signs of infection. Pt. has no drainage. Pt. tender throughout. NEURO: Pt. has normal sensation throughout BUEs. Pt. has normal DTR of BUEs. ROM: R shoulder: full without increase in symptoms. L shoulder: PROM: flexion 100deg, ER neutral, scaption 80deg. Pt. has full elbow ROM of L side. MMT: R shoulder: 5/5 throughout. L shoulder: not tested. L elbow 4/5 throughout. - Balance/Special Test Scores Quick DASH Score: 75.0000 - Goals Goal 1:: LTG: pt. to be I with HEP. Goal Time Frame: 4-6 Weeks Goal 2:: STG: Pt. to have increased PROM to 130deg flexion, and 30deg of ER. Goal Time Frame: 2-4 Weeks Goal 3:: LTG: Pt. to have increased L shoulder PROM to 160deg flexion and abduction, full functional ER and full functional IR. Goal Time Frame: 6-8 Weeks Goal 4:: STG: pt. to sleep throughout the night without increase in symptoms. Goal Time Frame: 2-4 Weeks Goal 5:: LTG: Pt. to have increased strength of L shoulder to at least 4+/5 throughout. Goal Time Frame: 6-8 Weeks Goal 6:: LTG: Pt. to complete all ADLs, upper body dressing and gym related exercises without increase in symptoms. Goal Time Frame: 6-8 Weeks - Rehabilitation Potential Physical Therapy Diagnosis: Pt. has signs and symptoms consistent with L shoulder reverse TSA. Pt. has increased hypomobility, weakness, pain and decreased ADL tolerance/independence. Pt. would benefit from PT to address the above limitations to get back to all functional and recreational activities. Rehabilitation Potential: Excellent - Anticipated Interventions Patient/Client Instruction: Educate patient on: Condition, Plan of Care, Risk Factors, Benefits of Fitness Program For the Purpose of:: To foster healthy habits, To improve decision making, To facilitate caregiver knowledge, To improve self management, To prevent re- injury, To improve ability to perform tasks related to life management Therapeutic Exercise to Include: Strength training, Power training, Endurance training, Postural training, Flexibilty training, Passive ROM, Active ROM, Scapular Strength/Stabilization For the Purpose of:: To decrease pain, To increase ROM, To improve nutrient delivery to tissue, To increase oxygenation perfusion, To improve muscle performance and motor function, To improve ability to perform ADL's, To increase tolerance to activity/condition/position, To decrease level of supervision to perform tasks, To improve ability of physical actions for home/community/work/leisure, To improve gait and locomotor functions, To improve health of tissue, To decrease soft tissue restriction Manual Therapy Techniques to Include: Mobilization, Passive ROM, Soft tissue mobilization For the Purpose of:: To decrease pain, To decrease swelling/inflammation, To increase ROM Cryotherapy (ice pack, ice massage): Yes Thermo therapy (hot pack): Yes Thank you for the opportunity to evaluate your patient. For Medicare and Medicare HMO plans, please review the plan of care and approve it. It will need to be FAXED BACK to us at [phone] for Medicare purposes. For Medicare only, by signing this I certify the plan of care. Please let me know if there are questions or concerns regarding this plan of care. Physician Signature: __Date:
--- NOTE | 2021-04-07 10:54 | HP.PTREVAL_ITS ---
Dr. Micheal Betancourt MD, It has been my pleasure to treat RAMOS PADRON over the last 10 visits for L Reverse TSA. Please see the progress note below for an update on the physical therapy plan of care! Subjective: Pt. reports being 25% better overall. 5/10 pain at incision. Pt. reports being HEP compliant. She is to see physician next week 04/14/21. Objective/Function: Pt. did very well with PT this date. ROM: PROM: flexion 139deg, scaption 125deg, ER 25deg. AROM: flexion 90deg, abd 85deg, functional ER to ear. Pt. has well healing incision, no signs of infection. She is overall doing well. I would like her to start doing some AAROM, but continue to focus on progressing end range motion. As she progressing with AAROM and PROM add in isometrics for her deltoid. Plan Plan: Start phase II, but make sure to progress end range of PROM as well. Progress as tolerated. Pt. to follow up with Physician next week. Balance/Gait/Functional tests - Balance/Special Test Scores Quick DASH Score: 40.9075 Goals Goal 1:: LTG: pt. to be I with HEP. Goal Time Frame: 4-6 Weeks Goal Progress: Progressing Goal 2:: STG: Pt. to have increased PROM to 130deg flexion, and 30deg of ER. Goal Time Frame: 2-4 Weeks Goal Progress: Progressing Goal 3:: LTG: Pt. to have increased L shoulder PROM to 160deg flexion and abduction, full functional ER and full functional IR. Goal Time Frame: 6-8 Weeks Goal Progress: Progressing Goal 4:: STG: pt. to sleep throughout the night without increase in symptoms. Goal Time Frame: 2-4 Weeks Goal Progress: Progressing Goal 5:: LTG: Pt. to have increased strength of L shoulder to at least 4+/5 throughout. Goal Time Frame: 6-8 Weeks Goal Progress: Progressing Goal 6:: LTG: Pt. to complete all ADLs, upper body dressing and gym related exercises without increase in symptoms. Goal Time Frame: 6-8 Weeks Goal Progress: Progressing Anticipated Interventions Patient/Client Instruction: Educate patient on: Condition, Plan of Care, Risk Factors, Benefits of Fitness Program For the Purpose of:: To foster healthy habits, To improve decision making, To facilitate caregiver knowledge, To improve self management, To prevent re- injury, To improve ability to perform tasks related to life management Therapeutic Exercise to Include: Strength training, Power training, Endurance training, Postural training, Flexibilty training, Passive ROM, Active ROM, Scapular Strength/Stabilization For the Purpose of:: To decrease pain, To increase ROM, To improve nutrient delivery to tissue, To increase oxygenation perfusion, To improve muscle performance and motor function, To improve ability to perform ADL's, To increase tolerance to activity/condition/position, To decrease level of supervision to perform tasks, To improve ability of physical actions for home/community/work/leisure, To improve gait and locomotor functions, To improve health of tissue, To decrease soft tissue restriction Manual Therapy Techniques to Include: Mobilization, Passive ROM, Soft tissue mobilization For the Purpose of:: To decrease pain, To decrease swelling/inflammation, To increase ROM Cryotherapy (ice pack, ice massage): Yes Thermo therapy (hot pack): Yes Please do not hesitate to contact me at [phone] by phone or if you have questions or concerns regarding this new plan of care! Sincerely, OPAL DaigleT
--- NOTE | 2021-04-28 11:02 | HP.PTREVAL_ITS ---
Dr. Micheal Betancourt MD, It has been my pleasure to treat RAMOS PADRON over the last 19 visits for L Reverse TSA. Please see the progress note below for an update on the physical therapy plan of care! Subjective: Pt. reports having 1/10 pain today. She is still well until about 4- 5 in the AM when her L shoulder becomes sore. No N/T noted. Pt. reports being HEP compliant. Pt. to return to physician on May 12. Objective/Function: AROM: L shoulder: flexion 151deg, abd 142deg, function functional ER 4 increase NW aberrant motion, functional L1 soreness. PROM: L shoulder: flexion 165deg, abd 168deg, ER at 90deg 80deg, IR at 90deg 40deg. MMT: L shoulder: flexion 4-/5, abd 4-/5, ext 4+/5, ER 3/5, IR 4/5. She is doing very well. I would like her to continue to work on increasing both passive end range, active ROM. Light strengthening, but focus is still on gaining ROM. Plan Plan: I would like her to continue to work on increasing both passive end range, active ROM. Light strengthening, but focus is still on gaining ROM. Pt. to follow up with physician next week. Balance/Gait/Functional tests - Balance/Special Test Scores Quick DASH Score: 40.9075 Goals Goal 1:: LTG: pt. to be I with HEP. Goal Time Frame: 4-6 Weeks Goal Progress: Progressing Goal 2:: STG: Pt. to have increased PROM to 130deg flexion, and 30deg of ER. Goal Time Frame: 2-4 Weeks Goal Progress: Goal Met Goal 3:: LTG: Pt. to have increased L shoulder PROM to 160deg flexion and abduction, full functional ER and full functional IR. Goal Time Frame: 6-8 Weeks Goal Progress: Progressing Goal 4:: STG: pt. to sleep throughout the night without increase in symptoms. Goal Time Frame: 2-4 Weeks Goal Progress: Progressing Goal 5:: LTG: Pt. to have increased strength of L shoulder to at least 4+/5 throughout. Goal Time Frame: 6-8 Weeks Goal Progress: Progressing Goal 6:: LTG: Pt. to complete all ADLs, upper body dressing and gym related exercises without increase in symptoms. Goal Time Frame: 6-8 Weeks Goal Progress: Progressing Anticipated Interventions Patient/Client Instruction: Educate patient on: Condition, Plan of Care, Risk Factors, Benefits of Fitness Program For the Purpose of:: To foster healthy habits, To improve decision making, To facilitate caregiver knowledge, To improve self management, To prevent re- injury, To improve ability to perform tasks related to life management Therapeutic Exercise to Include: Strength training, Power training, Endurance training, Postural training, Flexibilty training, Passive ROM, Active ROM, Scapular Strength/Stabilization For the Purpose of:: To decrease pain, To increase ROM, To improve nutrient delivery to tissue, To increase oxygenation perfusion, To improve muscle performance and motor function, To improve ability to perform ADL's, To increase tolerance to activity/condition/position, To decrease level of supervision to perform tasks, To improve ability of physical actions for home/community/work/leisure, To improve gait and locomotor functions, To improve health of tissue, To decrease soft tissue restriction Manual Therapy Techniques to Include: Mobilization, Passive ROM, Soft tissue mobilization For the Purpose of:: To decrease pain, To decrease swelling/inflammation, To increase ROM Cryotherapy (ice pack, ice massage): Yes Thermo therapy (hot pack): Yes Please do not hesitate to contact me at [phone] by phone or if you have questions or concerns regarding this new plan of care! Sincerely, OPAL DaigleT
--- NOTE | 2021-06-02 12:05 | HP.PTREVAL_ITS ---
Dr. Micheal Betancourt MD, It has been my pleasure to treat RAMOS PADRON over the last 29 visits for L Reverse TSA. Please see the progress note below for an update on the physical therapy plan of care! Subjective: pt. reports overall doing better. Pt. reports being ~65% better. She is concerned about her strength, but mostly with external rotation. She is going on a trip for a few weeks. She reports being HEP compliant, I am a little bit more sore today, but I think it is the weather. Objective/Function: ROM: L shoulder: AROM flexion 150deg, abd 155deg mild slight substitution noted, functional ER C3, functional IR L5. MMT: L shoulder: flexion 8.1#, abd 7.8#, ER 2.2#, IR 10.7#, ext 11.1#. Pt. has close to equal strength except about 75% of R side with abd and 25% of ER motion. Pt. is progressing as expected. She has some stiffness into ER/IR motions, but is continuing to improve. She is going on vacation for a few weeks and will check back in when she gets back to monitor progression and ability to self progress. Plan Plan: Progress phase III, focus on ER strengthening, very weak in this range. Balance/Gait/Functional tests - Balance/Special Test Scores Quick DASH Score: 22.7250 Goals Goal 1:: LTG: pt. to be I with HEP. Goal Time Frame: 4-6 Weeks Goal Progress: Goal Met Goal 2:: STG: Pt. to have increased PROM to 130deg flexion, and 30deg of ER. Goal Time Frame: 2-4 Weeks Goal Progress: Goal Met Goal 3:: LTG: Pt. to have increased L shoulder PROM to 160deg flexion and abduction, full functional ER and full functional IR. Goal Time Frame: 6-8 Weeks Goal Progress: Progressing Goal 4:: STG: pt. to sleep throughout the night without increase in symptoms. Goal Time Frame: 2-4 Weeks Goal Progress: Goal Met Goal 5:: LTG: Pt. to have increased strength of L shoulder to at least 4+/5 throughout. Goal Time Frame: 6-8 Weeks Goal Progress: Progressing Goal 6:: LTG: Pt. to complete all ADLs, upper body dressing and gym related exercises without increase in symptoms. Goal Time Frame: 6-8 Weeks Goal Progress: Progressing Anticipated Interventions Patient/Client Instruction: Educate patient on: Condition, Plan of Care, Risk Factors, Benefits of Fitness Program For the Purpose of:: To foster healthy habits, To improve decision making, To facilitate caregiver knowledge, To improve self management, To prevent re- injury, To improve ability to perform tasks related to life management Therapeutic Exercise to Include: Strength training, Power training, Endurance training, Postural training, Flexibilty training, Passive ROM, Active ROM, Scapular Strength/Stabilization For the Purpose of:: To decrease pain, To increase ROM, To improve nutrient delivery to tissue, To increase oxygenation perfusion, To improve muscle performance and motor function, To improve ability to perform ADL's, To increase tolerance to activity/condition/position, To decrease level of supervision to perform tasks, To improve ability of physical actions for home/community/work/leisure, To improve gait and locomotor functions, To improve health of tissue, To decrease soft tissue restriction Manual Therapy Techniques to Include: Mobilization, Passive ROM, Soft tissue mobilization For the Purpose of:: To decrease pain, To decrease swelling/inflammation, To increase ROM Cryotherapy (ice pack, ice massage): Yes Thermo therapy (hot pack): Yes Please do not hesitate to contact me at [phone] by phone or if you have questions or concerns regarding this new plan of care! Sincerely, Esdras Durbin DPT
--- NOTE | 2021-06-28 14:07 | HP.PTREVAL_ITS ---
Dr. Micheal Betancourt MD, It has been my pleasure to treat RAMOS PADRON over the last 30 visits for L Reverse TSA. Please see the progress note below for an update on the physical therapy plan of care! Subjective: Pt. reports being 75% better overall. She just got back form her vacation and reports overall doing well. She did have some pain with keeping her arm placed on the middle console of the car for a longer period of time, but did much better on the way back (drove to [place]). She is able to lift a few plates at a time out of the cabinets now and is overall doing well with dressing and grooming. She does report difficulty with her ER strength and fatigues rapidly. Pt. reports no pain currently Objective/Function: Pt. is doing well. She has good AROM, slight loss of functional ER but expected. MMT: Pt. has close to symmetrical from R to L, except shoulder flexion, abd, and ER (ER most weak). ER 3+/5. Overall doing well. I would like her to continue with strengthening. Progressing towards I gym and HEP program for deltoid and scapular strengthening. Plan Plan: Progress HEP with focus on gym program and deltoid strengthening. Balance/Gait/Functional tests - Balance/Special Test Scores Quick DASH Score: 22.7250 Goals Goal 1:: LTG: pt. to be I with HEP. Goal Time Frame: 4-6 Weeks Goal Progress: Goal Met Goal 2:: STG: Pt. to have increased PROM to 130deg flexion, and 30deg of ER. Goal Time Frame: 2-4 Weeks Goal Progress: Goal Met Goal 3:: LTG: Pt. to have increased L shoulder PROM to 160deg flexion and abduction, full functional ER and full functional IR. Goal Time Frame: 6-8 Weeks Goal Progress: Progressing Goal 4:: STG: pt. to sleep throughout the night without increase in symptoms. Goal Time Frame: 2-4 Weeks Goal Progress: Goal Met Goal 5:: LTG: Pt. to have increased strength of L shoulder to at least 4+/5 throughout. Goal Time Frame: 6-8 Weeks Goal Progress: Progressing Goal 6:: LTG: Pt. to complete all ADLs, upper body dressing and gym related exercises without increase in symptoms. Goal Time Frame: 6-8 Weeks Goal Progress: Progressing Anticipated Interventions Patient/Client Instruction: Educate patient on: Condition, Plan of Care, Risk Factors, Benefits of Fitness Program For the Purpose of:: To foster healthy habits, To improve decision making, To facilitate caregiver knowledge, To improve self management, To prevent re- injury, To improve ability to perform tasks related to life management Therapeutic Exercise to Include: Strength training, Power training, Endurance training, Postural training, Flexibilty training, Passive ROM, Active ROM, Scapular Strength/Stabilization For the Purpose of:: To decrease pain, To increase ROM, To improve nutrient delivery to tissue, To increase oxygenation perfusion, To improve muscle performance and motor function, To improve ability to perform ADL's, To increase tolerance to activity/condition/position, To decrease level of supervision to perform tasks, To improve ability of physical actions for home/community/work/leisure, To improve gait and locomotor functions, To improve health of tissue, To decrease soft tissue restriction Manual Therapy Techniques to Include: Mobilization, Passive ROM, Soft tissue mobilization For the Purpose of:: To decrease pain, To decrease swelling/inflammation, To increase ROM Cryotherapy (ice pack, ice massage): Yes Thermo therapy (hot pack): Yes Please do not hesitate to contact me at [phone] by phone or if you have questions or concerns regarding this new plan of care! Sincerely, Esdras Durbin DPT
--- NOTE | 2021-07-27 12:50 | HP.PTDCSUM ---
It has been my pleasure to treat RAMOS PADRON referred by Dr. Micheal Betancourt MD, with the diagnosis of L Reverse TSA for a total of 38 visit(s). Discharge Date: 07/27/21 Please see the following information for a summary of their discharge status. Subjective: Pt. reports overall doing well. Pt. reports still having some soreness, but is overall doing better. She reports being HEP compliant. Pt. reports being 85% better overall. L shoulder Pain Intensity (Out of 10): 1 % Improvement: 85 Objective/Function: Pt. has good ROM of her L shoulder: flexion 155deg, abd 150deg, functional ER C2, functional IR L4. MMT: L shoulder: flexion 5-/5, abd 5-/5, ext 5/5, ER 4-/5, IR 5/5. Elbow flexion 5/5, ext 5/5. Pt. is overall doing well with strength and ROM. She is still having some soreness with lifting and her ADLs. I talked to her that his is normal and that she can expect that to dissipate over the newt few months. Pt. reports that it has been slowly improving. She is currently I with HEP for both home and gym. She will be DC to HEP at this point in time. Goal 1:: LTG: pt. to be I with HEP. Goal Progress: Goal Met Goal 2:: STG: Pt. to have increased PROM to 130deg flexion, and 30deg of ER. Goal Progress: Goal Met Goal 3:: LTG: Pt. to have increased L shoulder PROM to 160deg flexion and abduction, full functional ER and full functional IR. Goal Progress: Progressing Goal 4:: STG: pt. to sleep throughout the night without increase in symptoms. Goal Progress: Goal Met Goal 5:: LTG: Pt. to have increased strength of L shoulder to at least 4+/5 throughout. Goal Progress: Progressing Goal 6:: LTG: Pt. to complete all ADLs, upper body dressing and gym related exercises without increase in symptoms. Goal Progress: Goal Met Plan: pt. to be DC to HEP for gym and home exercises. Discharge Comments: Pt. is overall doing well. She has increased overall ROM and strength. She is back to most household and outdoor activities. She is I with HEP as well. She will be DC to her current HEP and is to work on this until following up with physician in September. If there are questions or concerns regarding this patient's physical therapy, please feel free to call me at [phone]. Thank you for the referral of this patient. Sincerely, Esdras Durbin, DPT Balance/Gait/Functional tests - Balance/Special Test Scores Quick DASH Score: 13.6320
== END 2021-07-27 16:40 | disposition home or self-care (01) ==
LOC: PT 10:30
PROVIDERS: PCP Family Medicine; Referring Provider Family Medicine; Visit Provider Family Medicine
DX: Z47.1 Aftercare following joint replacement surgery; Z96.612 Presence of left artificial shoulder joint
CPT/HCPCS: 97110; 97140; 97161; 97164

== ENCOUNTER → 2021-08-11 | Outpatient (CLI) | payer MEDICARE, OTHER, SELFPAY ==
[2021-08-14 20:17] LABS: Cancer Antigen 125 13.5 U/mL (0.0-38.1)
== END | disposition home or self-care (01) ==
LOC: MTLAB 09:11
PROVIDERS: PCP Family Medicine; Referring Provider Obstetrics & Gynecology Gynecologic Oncology; Visit Provider Obstetrics & Gynecology Gynecologic Oncology
DX: C54.1 Malignant neoplasm of endometrium (principal)
CPT/HCPCS: 36415; 86304

== ENCOUNTER 2021-08-31 09:00 | Outpatient (RCR) | payer MEDICARE, OTHER, SELFPAY ==
--- NOTE | 2021-08-14 09:42 | HP.PTEVAL ---
Patient's Visit Information RAMOS PADRON is a 76 year old F referred to Physical Therapy by Dr. Winston Saunders DO with a diagnosis of Low back pain. Date of Evaluation: 08/03/21 Physical Therapist: Esdras Durbin DPT - Visit Plan Frequency: 2x /Week Duration: 4 Weeks Plan: Start with neutral spine isometrics, lumbar spine ROM, educate in body mechanics and prophylaxis techniques. - Subjective Pt. is here today for her initial evaluation with diagnosis of low back pain. Pt. has been having on and off pain for a few years now. She reports no mech of injury. She reports increased pain with standing, walking, lifting. Reduced pain with changing positions. She reports her pain seems to get worse as the day progresses. Minimal pain in the AMs. She reports pain is very central in her low back, no radicular symptoms. No NT in either LE. She reports no sudden weakness in either LE. Pt. is sleeping well, but her pain does wake her up at times. Most of her c/o is with increased standing/walking throughout the day. Pt. has done other treatments including meds, and injections. Due to her recent surgeries injections are currently off the table. Pt. is hopeful to reduce symptoms in order to get back to all recreational and household activities without limitations. Pt. was in PT for her reverse total shoulder and want to hold of on PT for her back until shoulder was better. - Pain Low back Pain Intensity (Out of 10): 3 Pain Intensity Range: 2, 7 - Objective POSTURE: Pt. has slight flexed posture in stance. Normal iliac crest heights. PALPATION: pt. has tenderness along B lumbar erector spinae. Pt. has hypomobility to spring testing throughout lumbar spine. Mild tenderness at B SI joints. NEURO: normal bilaterally to light touch and DTR. Pt. is able to rise on heels and toes without issues. ROM: LUMBAR SPINE: flexion min loss NE, extension mod loss increase NW, SB mod loss bilat NE, rotation mod loss B NE. Pt. has normal HS length bilat, tight hip flexor length bilat. MMT: Pt. has good strength of BLEs, except 4/5 B hip abd and hip extension. GAIT: Pt. has minimal lateral hip sway, she does has a tendency to shuffle her feet, but improves with VCing to slow down. STAIRS: normal with use of 1 UE. - Special Tests L/S Slump test left side: Negative L/S Slump test right side: Negative L/S Left Straight Leg Raise: Negative L/S Right Straight Leg Raise: Negative Lumbar Standing: Flexion - Mechanical Response: No effect Lumbar Standing: Flexion - Symptoms During Testing: Decreases Lumbar Standing: Flexion - Symptoms After Testing: No better Lumbar Standing: Extension - Mechanical Response: No effect Lumbar Standing: Extension - Symptoms During Testing: Increases Lumbar Standing: Extension - Symptoms After Testing: No worse Lumbar Standing: Right Side Glides - Mechanical Response: No effect Lumbar Standing: Right Side [place] - Symptoms During Testing: No effect Lumbar Standing: Right Side [place] - Symptoms After Testing: No effect Lumbar Standing: Left Side [place] - Mechanical Response: No effect Lumbar Standing: Left Side [place] - Symptoms During Testing: No effect Lumbar Standing: Left Side [place] - Symptoms After Testing: No effect - Balance/Special Test Scores Oswestry Low Back Score: 15 - Goals Goal 1:: LTG: Pt. to be I with HEP. Goal Time Frame: 4-6 Weeks Goal 2:: STG: Pt. to sleep throughout the night without increase in symptoms. Goal 3:: STG: Pt. to be able to walk 10 minutes prior to having increase in LBP. Goal Time Frame: 2 Weeks Goal 4:: LTG: Pt. to be able to ambulate 30 minute prior to having increase in LBP. Goal Time Frame: 4-6 Weeks Goal 5:: LTG: Pt. to have increased core strength by 1/2 grade reducing stress applied to lumbar spine with daily activities. Goal Time Frame: 2-4 Weeks Goal 6:: LTG: Pt. to demonstrate improved body mechanics with lifting and housekeeping tasks. - Rehabilitation Potential Physical Therapy Diagnosis: Pt. has signs and symptoms consistent with low back pain. Pt. has some mild weakness in her core musculature, increased stiffness in her lumbar spine and some marked body mechanics that could be improved to reduce stress to lumbar spine with all functional activities. Pt. would benefit from PT to address the above limitations progress back to all PLOF. Rehabilitation Potential: Good - Anticipated Interventions Patient/Client Instruction: Educate patient on: Condition, Plan of Care, Risk Factors, Benefits of Fitness Program For the Purpose of:: To improve health and function, To foster healthy habits, To improve decision making, To facilitate caregiver knowledge, To improve self management, To prevent re-injury, To improve ability to perform tasks related to life management Therapeutic Exercise to Include: Strength training, Power training, Endurance training, Coordination, Postural training, Flexibilty training, Passive ROM, Active ROM, Dynamic Lumbar Stabilization For the Purpose of:: To decrease pain, To increase ROM, To improve nutrient delivery to tissue, To increase oxygenation perfusion, To improve muscle performance and motor function, To improve ability to perform ADL's, To increase tolerance to activity/condition/position Thank you for the opportunity to evaluate your patient. For Medicare and Medicare HMO plans, please review the plan of care and approve it. It will need to be FAXED BACK to us at [phone] for Medicare purposes. For Medicare only, by signing this I certify the plan of care. Please let me know if there are questions or concerns regarding this plan of care. Physician Signature: Date:
--- NOTE | 2021-08-31 10:00 | HP.PTDCSUM ---
It has been my pleasure to treat RAMOS PADRON referred by Dr. Winston Saunders DO, with the diagnosis of Low back pain for a total of 8 visit(s). Discharge Date: 08/31/21 Please see the following information for a summary of their discharge status. Subjective: Pt. reports overall doing okay. She reports minimal back pain today, but is having more shoulder soreness. Pt. is to follow up with physician next week. Pt. Low back Pain Intensity (Out of 10): 1 L shoulder Pain Intensity (Out of 10): 3 Objective/Function: Pt. reports no pain in lumbar spine currently. LUMBAR ROM: flexion min loss no pain, ext mod loss NE, rotaiton/SB full motion no pain. MMT: R knee: flexion 21.1#, ext 26.3#; L knee: flexion 22.1#, ext 22.7#. GAIT: Pt. ambulates without AD. She does well when taking her time, she does have a tendency to get her trunk moving fwrd to MARY causing a shuffling pattern, but able to improve with VCing. She is overall doing well today with minimal to no back pain. She Goal 1:: LTG: Pt. to be I with HEP. Goal Progress: Goal Met Goal 2:: STG: Pt. to sleep throughout the night without increase in symptoms. Goal Progress: Goal Met Goal 3:: STG: Pt. to be able to walk 10 minutes prior to having increase in LBP. Goal Progress: Progressing Goal 4:: LTG: Pt. to be able to ambulate 30 minute prior to having increase in LBP. Goal Progress: Progressing Goal 5:: LTG: Pt. to have increased core strength by 1/2 grade reducing stress applied to lumbar spine with daily activities. Goal Progress: Progressing Goal 6:: LTG: Pt. to demonstrate improved body mechanics with lifting and housekeeping tasks. Goal Progress: Progressing Plan: pt. is doing well. She is will be DC from PT at this point in time. Discharge Comments: Pt. is overall doing well. She reports minimal pain in her low back today. Pt. does have intemittent pain with increased activities. She is having more soreness in her shoulder today. Pt. has a good program for stretching and stability today. Pt. will be DC to HEP at this point in time. If there are questions or concerns regarding this patient's physical therapy, please feel free to call me at [phone]. Thank you for the referral of this patient. Sincerely, Esdras Durbin, DPT Balance/Gait/Functional tests - Balance/Special Test Scores Oswestry Low Back Score: 13
== END 2021-08-31 10:29 | disposition home or self-care (01) ==
LOC: PT 09:00
PROVIDERS: PCP Family Medicine; Referring Provider Orthopaedic Surgery; Visit Provider Orthopaedic Surgery
DX: M54.50 Low back pain, unspecified (principal)
CPT/HCPCS: 97110; 97161; 97164

== ENCOUNTER → 2021-09-21 | Outpatient (CLI) | payer MEDICARE, OTHER, SELFPAY ==
--- NOTE | 2021-09-21 15:12 | BD_ITS ---
STUDY: DUAL ENERGY X-RAY ABSORPTIOMETRY / DXA REASON FOR EXAM: Female, 76 years old. [id number] -- . TECHNIQUE: Bone Mineral Density (BMD) measurements of lumbar spine and right hip were obtained. COMPARISON: Comparison is made with prior study dated 07/03/2018. FINDINGS: Lumbar Spine (L1-L4): g/cm2 (0.767) / T-score (-2.8) / Z-score (-0.3) Findings are suggestive of osteoporosis with a high fracture risk. Right Femur Total: g/cm2 (0.624) / T-score (-2.6) / Z-score (-0.8) Right Femoral Neck: g/cm2 (0.605) / T-score (-2.2) / Z-score (-0.1) The T-Scores on the most recent prior examination were: Lumbar Spine (L1-L4): There has been worsening of bone density since the previous examination. Right Femur Total: which represents a worsening of 10%. BD/Dexa Bone Density Study IMPRESSION: The patient is considered as outlined below according to World Luis Organization (WHO) criteria with a fracture risk. There has been of bone density since the previous examination. Reference Information: The T-score is the number of standard deviations above or below the standard which is normal for young adults at their peak bone mineral density. The World Health Organization (WHO) interprets the T-scores as follows: Above -1 Normal bone density Between -1 and -2.5 Osteopenia Equal to / or below -2.5 Osteoporosis As a practical clinical guideline, osteopenia may be graded as follows: Mild -1 through -1.5 Moderate -1.6 through -2.0 Severe -2.1 through -2.4 The Z-score is the number of standard deviations above or below age-matched controls. A Z-score of less than -1.5 would be considered abnormal. References: 1. NIH Osteoporosis and Related Bone Diseases www osteo.org 2. International Society for Clinical Densitometry www iscd.org 3. National Osteoporosis Foundation www nof.org Electronically Signed: Max Olsen MD at 15:36 EDT ,
== END | disposition home or self-care (01) ==
LOC: OPBD 15:06
PROVIDERS: PCP Family Medicine; Visit Provider Family Medicine
DX: M85.80 Other specified disorders of bone density and structure, unspecified site (principal); M81.0 Age-related osteoporosis without current pathological fracture
CPT/HCPCS: 77080

== ENCOUNTER 2021-10-02 10:00 | Outpatient (RCR) | payer MEDICARE, OTHER, SELFPAY ==
--- NOTE | 2021-09-18 16:40 | HP.PTEVAL ---
Patient's Visit Information RAMOS PADRON is a 76 year old F referred to Physical Therapy by Dr. Tarik Liz MD with a diagnosis of S/P REVERSE L SHLD ARTHROPLASTY. Date of Evaluation: 09/18/21 Physical Therapist: Myla Benavides, PT, Cert MDT - Visit Plan Frequency: 2x /Week Duration: 2-3 WKS Plan: LEFT SHOULDER STM AND GENTLE JOINT MOBILIZATION AND PASSIVE ROM FOR PAIN RELIEF. PATIENT IS AGREEABLE. - Subjective Diagnosis: S/P REVERSE ARTHROPLASTY L SHLD 03-13-21. Work/Leisure: RETIRED. Present symptoms: L SHLD/UPPER ARM PAIN. PATIENT DENIES NECK PAIN. PATIENT DENIES L UE NUMBNESS AND TINGLING. L UE WEAKNESS. Present since: 6-7 MONTHS BEFORE SX (03-13-21). Pain Scale: Worst - 9/10 Least - 2/10. Currently: 04/13. Commenced as a result of: SEVERAL FALLS ON L SHLD PRIOR TO SX. NO FALLS ON SHLD SINCE SX BUT REPORTS SHE HAS FALLEN. Worse: RAISING IT UP, LAYING ON IT, JUST LAYING DOWN ACTUALLY, REACHING UP TO GET INTO CUPBOARD. Better: ICE, KEEPING IT DOWN. Disturbed sleep: NO - DUE TO ICING IT WHEN GOES TO BED. Previous history/Previous treatment: REVERSE L TSR 03/13/21. PHYSICAL THERAPY AFTER SX - PATIENT REPORTS THE PHYSICAL THERPAY WAS GOOD AND THEN SHE AND HER PT DECIDED SHE COULD CONTINUE ON HER OWN (ABOUT A MONTH AGO). FOLLOW UP WITH DR. LIZ'S PA 09/08/21 FOR REGULAR FOLLOW UP. X-RAYS WERE DONE AND PATIENT REPORTS SHE WAS TOLD THE X-RAYS LOOKED REALLY GOOD. DUE TO TENDERNESS, PATIENT REPORTS MASSAGE AND VOLTERAN CREAM WERE ORDERED AND VOLTERAN CREAM HAS HAD SOME TEMPORARY BENEFIT. PMH/Recent major surgery: LOW BACK PAIN. NO BACK SURGERY. L THR JULY 2019 (DR. HUNT) AND AGAIN OCT 2020 ([facility] - DR. KOWALSKI) DUE TO BONE CHIPS AND GLUT MIN NEEDING REPAIR. GOING BACK TO DR. KOWALSKI FOR ON-GOING LLE NUMBNESS NEXT WEEK. H/O ENDOMETRIAL CANCER - TREATED WITH SX AND CHEMO X 6 MONTHS AGO 2014. OTHER: REPORTS SHE WAS DOING HER HEP UNTIL SHE FOLLOWED UP AT THE SURGEONS OFFICE AND SHE TOLD HER TO STOP ALL EX'S. WILL CONSIDER PREDNISONE PRESCRIPTION IF PT FOR PAIN RELIEF DOESN'T HELP. - Objective THIS PATIENT AMBULATES INDEP'LY INTO PT WITH DECREASED L UE ARM SWING. SHE HAS DECREASED L UE ROM AND STRENGTH. UPON ASSESSMENT TODAY, HER L SHLD ROM IS FOLLOWS: ACTIVE FLEXION IN STANDING = 143 DEG, ABD 150 DEG. SUPINE PASSIVE FLEX IN LYING = 154 DEG, ABD 150 DEG. SUPINE L SHLD ER/IR IN LYING WITH 70 DEG ABD = 45 DEG/68 DEG. STRENGTH: L SHLD FLEX 3-/5, ABD 3-/5, IR 4-/5, ER 3-/5. L ELBOW FLEX/EXT 4/5. RADIOGRAPHER MAMMOGRAPHER STRENGTH - NT. SHE HAS C/O LEFT SHLD TENDERNESS ANTERIORLY AND LATERALLY. INSTRUCTED PATIENT IN TABLE WALK AWAYS FOR GENTLY PASSIVE L SHLD FLEXION WITHIN ABAILABLE RANGE AVOIDING INCREASED PAIN X 3-4 REPS OFF AND ON DURING THE DAY TO MAINTAIN CURRENT ROM. SHE WAS ABLE TO PERFORM WELL WITHOUT INCREASED PAIN. - Goals Goal 1:: DECREASE C/O L SHLD PAIN Goal Time Frame: 4-6 Weeks Goal 2:: INSTRUCT IN PROPHYLAXIS Goal Time Frame: 4-6 Weeks - Anticipated Interventions Patient/Client Instruction: Educate patient on: Condition, Plan of Care, Risk Factors For the Purpose of:: To improve self management Therapeutic Exercise to Include: Passive ROM For the Purpose of:: To decrease pain Manual Therapy Techniques to Include: Soft tissue mobilization For the Purpose of:: To decrease pain Cryotherapy (ice pack, ice massage): Yes Thermo therapy (hot pack): Yes Comment: NEEDED. For the Purpose of:: To decrease pain Thank you for the opportunity to evaluate your patient. For Medicare and Medicare HMO plans, please review the plan of care and approve it. It will need to be FAXED BACK to us at [phone] for Medicare purposes. For Medicare only, by signing this I certify the plan of care. Please let me know if there are questions or concerns regarding this plan of care. Physician Signature: Date:
--- NOTE | 2021-10-02 12:16 | HP.PTDCSUM_ITS ---
It has been my pleasure to treat RAMOS PADRON referred by Dr. Tarik Mcbride MD, with the diagnosis of S/P REVERSE L SHLD ARTHROPLASTY for a total of 5 visit(s). Discharge Date: 10/02/21 Please see the following information for a summary of their discharge status. Subjective: Pt reports that her shoulder is still sore and not any better. She feel that her shoulder is very weak. The TRUST ADMINISTRATIVE ASSISTANT did an x-ray and the TRUST ADMINISTRATIVE ASSISTANT thought that doing massage therapy would help her tendon and so far it has not done much. She will call her Dr and tell her that the massage has not helped much. They did discuss a course of prednizone. No pain in sitting. LEFT SHOULDER Pain Intensity (Out of 10): 3 % Improvement: 50 Objective/Function: AROM L shoulder: 140 flex, 155 ABD, 21 ER and IR T12 Goal 1:: DECREASE C/O L SHLD PAIN Goal Progress: Not Progressing Goal 2:: INSTRUCT IN PROPHYLAXIS Plan: DC PT per pt request as pt will call and they might have to do a round of prednizone. Discharge Comments: DC PT to HEP If there are questions or concerns regarding this patient's physical therapy, please feel free to call me at [phone]. Thank you for the referral of this patient. Sincerely, Lilliana Donaldson, MPT Balance/Gait/Functional tests - Balance/Special Test Scores Quick DASH Score: 25.0000
== END 2021-10-02 13:27 | disposition home or self-care (01) ==
LOC: PT 10:00
PROVIDERS: PCP Family Medicine; Referring Provider Orthopaedic Surgery; Visit Provider Orthopaedic Surgery
DX: Z47.1 Aftercare following joint replacement surgery (principal); Z96.612 Presence of left artificial shoulder joint
CPT/HCPCS: 97140; 97162; 97530

== ENCOUNTER 2021-10-17 09:34 | Emergency (ER) | payer MEDICARE, OTHER, SELFPAY ==
[2021-10-17 09:35] VITALS: BP 129/92; PULSE 88; RESP 17; TEMP 36.2; O2SAT 96; BMI 27.3
--- NOTE | 2021-10-17 10:02 | ED.VIS.FALL ---
HPI HPI - Fall History of Present Illness Chief Complaint: Fall Occured/Mechanism Occurred: Yesterday Mechanism/Context: Yes same level fall Usually ambulates: Cane Pain/Injury Location: Left hip, left shoulder, left side of head Quality of Pain: Dull Worsened by: Nothing Relieved by: Nothing Associated Symptoms Associated Symptoms: Negative for Parasthesias, Weakness, Loss of function, Inability to ambulate, Loss of consciousness or Amnesia Narrative Narrative: Patient presents after a fall that occurred yesterday. Patient states she was bending over and lost her balance. Patient states she fell into her refrigerator. Patient states her pain is mainly in her left hip and left shoulder. Patient did hit her head but denies any loss of consciousness. Patient states nothing makes her pain worse and nothing makes it better. Patient denies any other injuries. Patient denies any paresthesias or weakness. PFSH PFS Medical History Abnormal bruising Back pain Difficulty balancing Encounter for screening for malignant neoplasm of lung in former smoker who quit in past 15 years with 30 pack year history or greater Endometrial cancer Fatigue History of tobacco use Migraines Shoulder pain Uterine cancer Home Medications simvastatin 20 mg tablet 20 mg PO QHS cholesterol 90 days ##90 11/18/17 [History Last Taken Unknown] acetaminophen 500 mg tablet 1,000 mg PO TID PRN Pain 07/15/19 [History Last Taken Unknown] cholecalciferol (vitamin D3) 25 mcg (1,000 unit) capsule 2,000 unit PO DAILY supplement 01/31/21 [History Last Taken Unknown] coenzyme Q10 10 mg capsule (Co Q-10) 10 mg PO ONCE 04/28/21 [History Last Taken Unknown] Allergy/AdvReac Type Severity Reaction Status Date / Time No Known Allergies Allergy Verified 10/17/21 09:35 Family History Mother CVA (cerebral vascular accident) Hypertension Father Cancer Sister CVA (cerebral vascular accident) Hypertension Brother Hypertension CVA (cerebral vascular accident) Surgical History H/O: hysterectomy History of hip surgery History of left hip replacement History of left shoulder replacement Social History household members: spouse housing: house Smoking Status: Never smoker Tobacco: How many years used: 40 Electronic Cigarette Use: not used second hand exposure: Yes quit status: has quit before counseling given: provider counseling alcohol intake: never what type of physical activity do you participate in: walking and other details: golf do you feel safe at home: Yes ROS ROS ED Constitutional Constitutional ED: Denies chills or fever(s) Eyes Eyes: Denies blurry vision or change in vision ENT ENT ED: Denies rhinorrhea or sore throat Cardiovascular Cardiovascular: Denies chest pain or palpitations Respiratory/Chest Respiratory/Chest: Denies cough or dyspnea Gastrointestinal Gastrointestinal: Denies nausea or vomiting Genitourinary Genitourinary ED: Denies dysuria or hematuria Musculoskeletal Musculoskeletal: Reports back pain; Denies neck pain Integumentary Denies abscess or rash Neurologic Neurologic: Denies headache(s) or weakness Allergic/Immunologic Allergic/Immunologic ED: Denies mouth swelling or urticaria EXAM Physical Exam Const Vital Signs: 10/17/21 09:35 10/17/21 10:00 Temperature 97.2 F L Temperature Source Temporal Pulse Rate 88 Respiratory Rate 17 Respiratory Effort Normal Respiratory Depth Normal Respiratory Pattern Normal Blood Pressure 129/92 H Blood Pressure Mean 104 Pulse Ox 96 Oxygen Delivery Method Room Air Positive well nourished and well developed General Appearance ED: well developed HEENT Reports moist mucous membranes Neck supple and no JVD Resp normal respiratory effort and clear to auscultation bilaterally Cardio regular rate, regular rhythm and no murmurs GI normal to inspection, nondistended, normoactive bowel sounds and non-tender Palpation: soft Extremity normal to inspection Extremity Narrative: There is tenderness over the left shoulder and left hip. There is no deformity. Range of motion was limited in all motions of the left shoulder secondary to pain. Range of motion of the left hip was slightly diminished secondary to pain. There is no pain with internal and external rotation of the left lower extremity. Radial and pedal pulses are equal bilaterally. Sensation was intact to light touch in all digits. Capillary refill was less than 2 seconds in all digits. Strength is 5/5 bilaterally upper and lower extremities. Neuro oriented x3, CN's II-XII intact bilaterally and no sensory deficits noted Sensorium / Orientation: alert Motor Exam: strength 5/5 throughout Psych mental status grossly normal Skin no rashes or lesions noted MDM MDM MDM Narrative Medical decision making narrative: X-rays of the left shoulder were obtained. There are 4 views. On my interpretation, there is no acute fracture or dislocation. Radiologist also interpreted the x-rays and agrees. X-rays of the left hip were obtained. There are 3 views. On my interpretation, there is no acute fracture or dislocation. The prosthesis is in place. Radiologist also interpreted the x-rays and agrees. Patient feels better on reevaluation. Patient was instructed to use ice to the area. Patient was instructed to take Tylenol or ibuprofen as needed for pain. Patient was instructed to follow-up with her primary care physician in 5 to 7 days. Patient understood and was agreeable with the plan. All questions were answered. Radiography Diagnostic Testing: Clinical Impression(s) from Imaging Studies Shoulder X-Ray 10/17/21 10:05 IMPRESSION: Degenerative changes, no evidence of acute osseous abnormality is seen Electronically Signed: Mohan Davis MD at 10:51 EDT Reading Location ID and State: [facility] / [place] Tel , Service support , Hip/Pelvis X-Ray 10/17/21 10:25 IMPRESSION: Unremarkable left hip prosthesis, Electronically Signed: Mohan Davis MD at 10:49 EDT , Discharge Plan Triage Chief Complaint: Fall ED Provider: John Webb Dx/Rx/DC Orders Clinical Impression: Contusion of left shoulder, initial encounter, Contusion of left hip, initial encounter Instructions: ED Contusion, Upper Extremity, ED Hip Contusion Prescriptions: No Action simvastatin 20 mg tablet 20 mg PO QHS 90 Days Qty: 90 Label Comments: cholecalciferol (vitamin D3) 25 mcg (1,000 unit) capsule 2,000 unit PO DAILY coenzyme Q10 [Co Q-10] 10 mg capsule 10 mg PO ONCE acetaminophen 500 MG tablet 1,000 mg PO TID PRN (Reason: Pain) Primary Care Provider: Micheal Betancourt Referrals: Micheal Betancourt MD [Primary Care Provider] - 5-7 Days Disposition Disposition: Home, Self Care
--- NOTE | 2021-10-17 10:05 | RAD_ITS ---
INDICATION: Injury/Pain EXAMINATION/TECHNIQUE: X-RAY - LEFT XR Shoulder Min 2 Views 4 VIEWS COMPARISON: 02/01/2020. FINDINGS: Unremarkable alignment of the left shoulder prosthesis, no evidence of lucency surrounding the prosthesis. Degenerative changes visualized most prominent in the left acromial clavicular joint. No evidence of cortical irregularity or lucency to suggest a fracture, no evidence of lytic or sclerotic bone lesion is seen. No abnormal density in the overlying soft tissues. The visualized at lung rain demonstrate no evidence of parenchymal contusion or pneumothorax. RAD/Shoulder min 2 Views IMPRESSION: Degenerative changes, no evidence of acute osseous abnormality is seen Electronically Signed: Mohan Davis MD at 10:51 EDT ,
--- NOTE | 2021-10-17 10:25 | RAD_ITS ---
INDICATION: Injury/Pain EXAMINATION/TECHNIQUE: X-RAY - LEFT XR Hip Unilateral with Pelvis when performed; 2-3 Views 3 VIEWS COMPARISON: None. FINDINGS: Unremarkable left hip prosthesis is visualized, no evidence of lucency surrounding the prosthesis. No evidence of cortical irregularity or lucency to see is a fracture, no evidence of lytic or sclerotic bone lesion is seen. Degenerative bone changes are seen. No abnormal density visualized in the overlying soft tissues. RAD/HIP, UNI W/ Pelvis 2-3 Views IMPRESSION: Unremarkable left hip prosthesis, Electronically Signed: Mohan Davis MD at 10:49 EDT ,
--- NOTE | 2021-10-17 11:18 | ED.RN ---
PT STATES SHE WOULD LIKE TO LEAVE INSTEAD OF WAITING FOR HER RESULTS. SHE STATES SHE IS GOING TO USE THE RESTROOM AND LEAVE. THIS RN HELPS HER OUT OF BED AND IS AT HER DOORWAY. THIS RN INFORMS HIM THAT SHE WOULD LIKE TO LEAVE. HE INFORMS HER THAT HER RESULTS ARE ALL CLEAR AND EVERYTHING IS NEGATIVE. SHE VERBALIZES UNDERSTANDING AND CONTINUES TO RESTROOM.
[2021-10-17 11:38] VITALS: RESP 16
== END 2021-10-17 11:38 | disposition home or self-care (01) ==
PROVIDERS: Emergency Provider Emergency Medicine; PCP Family Medicine; Visit Provider Emergency Medicine
DX: S40.012A Contusion of left shoulder, initial encounter (principal); S70.02XA Contusion of left hip, initial encounter; W01.198A Fall on same level from slipping, tripping and stumbling with subsequent striking against other object, initial encounter
CPT/HCPCS: 73030; 73502; 99283

== ENCOUNTER 2021-10-19 09:22 | Emergency (ER) | payer MEDICARE, OTHER, SELFPAY ==
[2021-10-19 09:24] VITALS: BP 167/80; PULSE 98; RESP 18; TEMP 36.3; O2SAT 74; BMI 27.4
--- NOTE | 2021-10-19 09:43 | CT_ITS ---
STUDY: CT BRAIN WITHOUT CONTRAST REASON FOR EXAM: Female, 76 years old. Head injury RADIATION DOSAGE (If Supplied By Facility): CTDIvol = ( 44.99 ) mGy, DLP = ( 762.36 ) mGycm TECHNIQUE: Transaxial CT imaging of the brain was performed without administration of intravenous contrast material. Individualized dose optimization techniques were used for this CT. COMPARISON: No relevant priors. FINDINGS: Normal soft tissue structures. Normal calvarium. There is mild cerebral atrophy with widening of the extra-axial spaces and ventricular dilatation. There are areas of decreased attenuation within the white matter tracts of the supratentorial brain, consistent with microvascular disease changes. There is a 2.5 mm lacunar in the left thalamus. Normal brainstem. Normal cerebellum. There is no intracranial hemorrhage. There are no findings of an acute ischemic infarction. Atherosclerotic plaque formation of the cavernous portions of the internal carotid arteries bilaterally. Normal visualized paranasal sinuses. CT/Brain/Head without Contrast IMPRESSION: Chronic involutional changes of the brain. 2.5 mm lacuna in the left thalamus. Electronically Signed: Max Olsen MD at 10:06 EDT ,
--- NOTE | 2021-10-19 09:43 | EX.ED.GENINJ ---
HPI History of Present Illness Chief Complaint: Head Injury Detail of Chief Complaint: Head injury that occurred 5 days ago Informant: patient Narrative Narrative: Patient presents to the emergency department with an injury to her head that occurred 5 days ago. Patient tells me that she had bent over to pick something up and lost her balance and started stumbling forward towards her refrigerator. Patient struck her head on the refrigerator and hit her left side shoulder and hip as she went to the ground. No loss of consciousness. She is not on blood thinners. Patient saw her orthopedic doctors who recommended that she be seen in the emergency department to have her head evaluated. Patient came to the ER 2 days ago and states that she had x-rays of the shoulder and left hip but no imaging of her brain. Patient subsequently followed up with nurse practitioner at [facility] who recommended that she have her head evaluated and because she hit her head they would not do any type of injections to her shoulder for 2 weeks. Patient complains of pain to the left side of her head where she struck the refrigerator. She denies vision changes. She is had no vomiting. She denies neck pain. Patient went to urgent care and was referred to the emergency department today. [facility] Medical History (Updated 10/19/21 @ 10:[address] Flo Christianson, DO) Abnormal bruising Back pain Difficulty balancing Encounter for screening for malignant neoplasm of lung in former smoker who quit in past 15 years with 30 pack year history or greater Endometrial cancer Fatigue High cholesterol History of tobacco use Migraines Shoulder pain Uterine cancer Home Medications simvastatin 20 mg tablet 20 mg PO QHS cholesterol 90 days ##90 11/18/17 [History Last Taken Unknown] cholecalciferol (vitamin D3) 25 mcg (1,000 unit) capsule 2,000 unit PO DAILY supplement 01/31/21 [History Last Taken Unknown] coenzyme Q10 10 mg capsule (Co Q-10) 10 mg PO ONCE 04/28/21 [History Last Taken Unknown] Allergy/AdvReac Type Severity Reaction Status Date / Time No Known Allergies Allergy Verified 10/19/21 09:23 Family History Mother CVA (cerebral vascular accident) Hypertension Father Cancer Sister CVA (cerebral vascular accident) Hypertension Brother Hypertension CVA (cerebral vascular accident) Surgical History H/O: hysterectomy History of hip surgery History of left hip replacement History of left shoulder replacement Social History household members: spouse housing: house Smoking Status: Never smoker Tobacco: How many years used: 40 Electronic Cigarette Use: not used second hand exposure: Yes quit status: has quit before counseling given: provider counseling alcohol intake: never what type of physical activity do you participate in: walking and other details: golf do you feel safe at home: Yes ROS ROS ED Review of Systems ROS Unobtainable: other Constitutional Constitutional ED: Reports lethargy; Denies chills, fever(s), sweats or weight loss Eyes Eyes: Denies blurry vision, change in vision or diplopia ENT ENT ED: Denies rhinorrhea or sore throat Cardiovascular Cardiovascular: Denies chest pain, orthopnea or racing heartbeat Respiratory/Chest Respiratory/Chest: Reports dyspnea and dyspnea on exertion; Denies cough, orthopnea or sputum Gastrointestinal Gastrointestinal: Denies abdominal pain, diarrhea, nausea or vomiting Genitourinary Genitourinary ED: Denies dysuria, hematuria or urinary frequency Musculoskeletal Musculoskeletal: Denies arthralgias, back pain, myalgias or neck pain Integumentary Denies abscess, Abrasions or rash Neurologic Neurologic: Reports headache(s); Denies weakness Psychiatric Psychiatric: Denies anxiety, depression or suicidal thoughts Endocrine Endocrinology: Denies polydipsia, polyphagia or polyuria Hematologic/Lymphatic Hematologic/Lymphatic: Denies easy bleeding, easy bruising or lymphadenopathy Allergic/Immunologic Allergic/Immunologic ED: Denies mouth swelling, tongue swelling or urticaria EXAM Physical Exam Const Vital Signs: 10/19/21 09:24 10/19/21 09:33 Temperature 97.3 F L Temperature Source Temporal Pulse Rate 98 Respiratory Rate 18 Respiratory Effort Normal Respiratory Depth Normal Respiratory Pattern Normal Blood Pressure 167/80 H Blood Pressure Mean 109 Pulse Ox 74 Oxygen Delivery Method Room Air Positive well nourished and well developed General Appearance ED: well developed and NAD HEENT Reports TM's clear and moist mucous membranes HEENT Narrative: .Patient has tenderness palpation over the left temporal and parietal scalp no bony depressions noted. There is no evidence of hematoma. normocephalic and atraumatic; Negative for trauma or tenderness Tympanic Membrane ED: Yes TM's clear Eyes PERRL and EOMs intact bilaterally General Eye ED: Negative for pale conjunctiva or scleral icterus Neck no lymphadenopathy, supple and no JVD General: Negative for tenderness Chest Wall inspection of chest normal and palpation of chest normal Chest: Negative for tenderness Resp normal respiratory effort and clear to auscultation bilaterally Effort and Inspection: Negative for respiratory distress or pain with movement Auscultation: Negative for rhonchi, wheezes or diminished lung sounds Cardio regular rate, regular rhythm, S1 normal heart sound, S2 normal heart sound and no murmurs Peripheral Pulses: pulses 2+ throughout GI normal to inspection, nondistended, normoactive bowel sounds, soft to palpation, non-tender, non-distended and no masses Back/Spine no CVA tenderness and no thoracic nor lumbar tenderness Extremity normal to inspection General Extremety ED: Negative for edema General Extremity: Negative for edema Neuro oriented x3, CN's II-XII intact bilaterally, no sensory deficits noted and gait normal Sensorium / Orientation: awake, alert, oriented to person, oriented to place and oriented to time Motor Exam: strength 5/5 throughout and strength abnormal Psych mental status grossly normal Skin no rashes or lesions noted and no wounds MDM MDM MDM Narrative Medical decision making narrative: CT scan of the brain without contrast was obtained which was essentially unremarkable did show an old lacunar infarct in the left thalamus. This point patient advised to follow-up with her primary care physician as needed. Radiography Diagnostic Testing: Clinical Impression(s) from Imaging Studies Brain CT 10/19/21 09:43 IMPRESSION: Chronic involutional changes of the brain. 2.5 mm lacuna in the left thalamus. Electronically Signed: Max Olsen MD at 10:06 EDT , Discharge Plan Triage Chief Complaint: Head Injury ED Provider: Flo Christianson Dx/Rx/DC Orders Clinical Impression: Closed head injury, Fall Instructions: ED Head Injury (Adult) Prescriptions: No Action simvastatin 20 mg tablet 20 mg PO QHS 90 Days Qty: 90 Label Comments: cholecalciferol (vitamin D3) 25 mcg (1,000 unit) capsule 2,000 unit PO DAILY coenzyme Q10 [Co Q-10] 10 mg capsule 10 mg PO ONCE Primary Care Provider: Micheal Betancourt Referrals: Micheal Betancourt MD [Primary Care Provider] - As Needed Disposition Disposition: Home, Self Care
== END 2021-10-19 10:14 | disposition home or self-care (01) ==
PROVIDERS: Emergency Provider Emergency Medicine; PCP Family Medicine; Visit Provider Emergency Medicine
DX: S09.90XA Unspecified injury of head, initial encounter (principal); E78.00 Pure hypercholesterolemia, unspecified; Z79.899 Other long term (current) drug therapy; W18.09XA Striking against other object with subsequent fall, initial encounter
CPT/HCPCS: 70450; 99282

== ENCOUNTER → 2021-11-16 | Outpatient (CLI) | payer MEDICARE, OTHER, SELFPAY ==
--- NOTE | 2021-11-16 12:19 | MRI_ITS ---
STUDY: MRI BRAIN WITH AND WITHOUT CONTRAST REASON FOR EXAM: Female, 76 years old. MCI; cerebrovascular disease; Parkinson''s disease TECHNIQUE: Standardized multiplanar fat and water weighted pulse sequences were obtained. IV 13CC CLARISCAN was administered for the contrast portion of the examination. COMPARISON: MRI 08/25/2020. CT of the brain 10/19/2021 FINDINGS: Moderate atrophy and periventricular white matter ischemic changes without mass effect or restricted diffusion. Small perivascular space noted within the medial left temporal lobe Normal bilateral basal ganglia. Normal thalami. There is no extra-axial fluid accumulation. Normal flow voids within the major intracranial circulation suggesting patency by spin echo criteria. Normal venous enhancement. There is no enhancing intra-axial or extra-axial abnormality. Normal sella turcica, pituitary gland, infundibular stalk, optic chiasm and hypothalamus. Normal tectal plate and pineal gland. Normal midbrain, felix and medulla. Normal cerebellum. Normal basal cisterns. Normal bilateral temporal bones. Normal bilateral internal auditory canals. No demonstrated orbital abnormality, within the constraints of a routine brain study. Normal visualized paranasal sinuses. Normal calvarium and skull base. Normal visualized soft tissue structures. Normal visualized upper cervical spine. No significant change since prior exam MRI/Brain W/WO Contrast IMPRESSION: Moderate atrophy and periventricular white matter ischemic change without evidence for acute infarct. No enhancing lesions following contrast administration Electronically Signed: Dc Skinner MD at 17:25 EDT ,
[2021-11-16 12:45] LABS: Hematocrit 49.1 % (37-47); Hemoglobin 16.3 g/dL (12.0-15.0); Mean Corp Hgb Conc 33.2 g/dL (32-36); Mean Corpuscular Hgb 31.3 pg (27.0-32.0); Mean Corpuscular Volume 94.2 fL (81-99); Mean Platelet Vol. 9.1 fl (6.2-12.0); Platelet Count 361 K/mm3 (150-450); RBC Distribution Width CV 13.3 % (11.6-14.6); Red Blood Count 5.21 M/mm3 (4.2-5.4); White Blood Count 11.6 K/mm3 (4.4-11.0)
[2021-11-16 13:09] LABS: Vitamin B12 559 pg/mL (211-911)
[2021-11-16 13:38] LABS: ALB/GLOB Ratio 0.9 RATIO (0.9-2.4); AST(SGOT) 9 U/L (15-37); Alanine Aminotransfer ALT/SGPT 13 U/L (13-56); Albumin, Serum 3.6 g/dL (3.2-5.0); Alkaline Phosphatase 70 U/L (45-117); Anion Gap 7 (5-15); BUN 21 mg/dL (7-18); BUN/Creat Ratio 19.4 RATIO (10-20); Calcium,Total 9.3 mg/dL (8.5-10.1); Chloride 103 mmol/L (98-107); Creatinine, Serum 1.08 mg/dL (0.55-1.02); EST Glomerular Filtration Rate 52 mL/min (>60); Est Glom Filt Rate - Afr Amer 63 mL/min (>60); Glucose 90 mg/dL (74-106); Potassium 3.9 mmol/L (3.5-5.1); Protein, Total 7.6 g/dL (6.4-8.2); Sodium Level 136 mmol/L (136-145)
[2021-11-22 10:09] LABS: Free Kappa Light Chains 17.8 mg/L (3.3-19.4); Free Lambda Light Chains 14.6 mg/L (5.7-26.3)
[2021-11-22 11:31] LABS: Vitamin B1, Thiamine 198.6 nmol/L (66.5-200.0)
== END | disposition home or self-care (01) ==
LOC: MRI 12:19
PROVIDERS: PCP Family Medicine; Referring Provider Psychiatry & Neurology Neurology; Visit Provider Psychiatry & Neurology Neurology
DX: S46.001A Unspecified injury of muscle(s) and tendon(s) of the rotator cuff of right shoulder, initial encounter (principal); G20 Parkinson's disease; G62.9 Polyneuropathy, unspecified; G31.84 Mild cognitive impairment of uncertain or unknown etiology; R52 Pain, unspecified; I67.9 Cerebrovascular disease, unspecified
CPT/HCPCS: 36415; 70553; 80053; 82607; 82746; 83883; 84425; 84443; 85027; A9575

== ENCOUNTER 2021-11-21 09:10 | Emergency (ER) | payer MEDICARE, OTHER, SELFPAY ==
[2021-11-21 09:12] VITALS: BP 156/81; PULSE 91; RESP 16; TEMP 36.6; O2SAT 95; BMI 28.0
--- NOTE | 2021-11-21 09:56 | CT_ITS ---
EXAM: CT HEAD WITHOUT INTRAVENOUS CONTRAST CLINICAL INDICATION: Head injury. TECHNIQUE: Multiple axial images were obtained of the head without intravenous contrast. This CT exam was performed using one or more of the following dose reduction techniques: automated exposure control, adjustment of the mA and/or kV according to patient size, and/or use of iterative reconstruction technique. This report was created using [employer] report generation technology. RADIATION DOSE: CTDIvol = 44.99 mGy, DLP = 1213.65 mGy-cm COMPARISON: CT head without contrast 10/19/2021. FINDINGS: BRAIN AND EXTRA-AXIAL SPACES: Acute hyperdense subdural hematoma overlying the right temporal lobe with a maximum thickness of 7 mm. There is mild mass effect but no midline shift. Moderate cerebral atrophy, central and cortical. This accounts for disproportionate dilatation of the third and lateral ventricles with normal cerebral aqueduct and normal fourth ventricle. No evidence of acute infarct. There is preservation of the finnegan/white matter interface. Posterior fossa structures are unremarkable. No hydrocephalus. Basal cisterns are patent. BONES/JOINTS: Unremarkable. No discrete lytic or blastic abnormalities. SINUSES: Unremarkable as visualized. Clear. MASTOID AIR CELLS: Unremarkable. Clear. ORBITS: Visualized globes, extraocular muscles, optic nerves and retrobulbar fat appear unremarkable. CT/Brain/Head without Contrast IMPRESSION: 1. Acute hyperdense subdural hematoma overlying the right temporal lobe with a maximum thickness of 7 mm and mild mass effect but no midline shift. 2. No other additional findings or changes when compared to 10/19/2021. N.B. : The above Results were Read Back by Home Vines MD to Flores Ibrahim MD, and understanding confirmed on 11/21/2021 10:53:25 (ET). Electronically Signed: Home Vines MD at 10:49 EDT ,
--- NOTE | 2021-11-21 09:56 | CT_ITS ---
EXAM: CT CERVICAL SPINE WITHOUT INTRAVENOUS CONTRAST CLINICAL INDICATION: Trauma injury. Nexus positive TECHNIQUE: Helically acquired images were obtained of the cervical spine without intravenous contrast. 2D reformatted images were reviewed. This CT exam was performed using one or more of the following dose reduction techniques: automated exposure control, adjustment of the mA and/or kV according to patient size, and/or use of iterative reconstruction technique. This report was created using [employer] report generation technology. RADIATION DOSE: CTDIvol = 21.58 mGy, DLP = 1213.65 mGy-cm COMPARISON: None. FINDINGS: VERTEBRAE: Normal vertebral body heights and endplates. Normal alignment. No traumatic subluxation. Incidental bone island in the right lateral mass of C1. Normal craniocervical junction and cervicothoracic junction. DISCS/SPINAL CANAL/NEURAL FORAMINA: Normal disc space heights. Normal central canal and intervertebral neural foramina. No critical stenosis. SOFT TISSUES: Unremarkable. No prevertebral soft tissue swelling. LYMPH NODES: Unremarkable. No cervical adenopathy. LUNG APICES: Unremarkable as visualized. Clear. OTHER FINDINGS: Tilted neck positioning. CT/Spine Cervical without Contras IMPRESSION: 1. No CT evidence of acute fracture or malalignment of the cervical spine down to upper T3 and the craniocervical junction. 2. Incidental bone island in the right lateral mass of C1. Electronically Signed: Home Vines MD at 10:53 EDT ,
--- NOTE | 2021-11-21 09:57 | RAD_ITS ---
EXAM: XR LEFT KNEE COMPLETE, 4 OR MORE VIEWS CLINICAL INDICATION: Trauma injury with pain. TECHNIQUE: Four or more views of the left knee. This report was created using [employer] report generation technology. COMPARISON: None. FINDINGS: BONES/JOINTS: Unremarkable. No acute fracture. No subluxation. Normal alignment. Preservation of the joint space. No sclerotic or destructive changes observed. SOFT TISSUES: Unremarkable. No soft tissue swelling or gas. No radiopaque foreign body. RAD/Knee 4 or More Views IMPRESSION: Negative left knee x-rays. Electronically Signed: Home Vines MD at 10:55 EDT ,
--- NOTE | 2021-11-21 09:59 | EDS_ITS ---
HPI History of Present Illness Chief Complaint: Laceration Informant: patient Narrative Narrative: Patient is a 76-year-old female with history of degenerative disc disease and Parkinson's disease with polyneuropathy presenting after a fall. Patient states she was walking in the [employer] of just lost her balance and fell. Patient states sometimes she just gets moving and cannot stop her self until she follows that this is what happened today. She denies likely sure how she landed but she notes that she landed on both her knees and somehow cut her right oriental orthodox. She denies any loss of conscious. She is not on any blood thinners. Lives at home with her . Uses a cane to ambulate normally. No other complaint at this time. Tetanus Immunization: Unknown [facility] Medical History Abnormal bruising Back pain Carpal tunnel syndrome Difficulty balancing Encounter for screening for malignant neoplasm of lung in former smoker who quit in past 15 years with 30 pack year history or greater Endometrial cancer Fatigue High cholesterol History of tobacco use Migraines Shoulder pain Uterine cancer Home Medications simvastatin 20 mg tablet 20 mg PO QHS cholesterol 90 days ##90 11/18/17 [History Last Taken Unknown] cholecalciferol (vitamin D3) 25 mcg (1,000 unit) capsule 2,000 unit PO DAILY supplement 01/31/21 [History Last Taken Unknown] coenzyme Q10 10 mg capsule (Co Q-10) 10 mg PO ONCE 04/28/21 [History Last Taken Unknown] BALANCE OF NATUARE VITAMIN 2 tab PO DAILY 11/09/21 [History Last Taken Unknown] acetaminophen 650 mg tablet,extended release (Tylenol Arthritis Pain) 650 mg PO Q8H 11/09/21 [History Last Taken Unknown] carbidopa 25 mg-levodopa 100 mg tablet 1 tab PO .COMPLEX #60 tabs 11/09/21 [Rx Last Taken Unknown] Allergy/AdvReac Type Severity Reaction Status Date / Time No Known Allergies Allergy Verified 11/09/21 09:17 Family History Mother CVA (cerebral vascular accident) Hypertension Arthritis Heart disease Father Cancer Skin cancer Sister CVA (cerebral vascular accident) Hypertension Brother Hypertension CVA (cerebral vascular accident) Surgical History H/O: hysterectomy History of hip surgery History of left hip replacement History of left shoulder replacement Social History household members: spouse housing: house Smoking Status: Never smoker Tobacco: How many years used: 40 Electronic Cigarette Use: not used second hand exposure: Yes quit status: has quit before counseling given: provider counseling alcohol intake: never what type of physical activity do you participate in: walking and other details: golf do you feel safe at home: Yes ROS ROS ED Constitutional Constitutional ED: Denies chills or fever(s) Eyes Eyes: Denies blurry vision ENT ENT ED: Denies rhinorrhea Cardiovascular Cardiovascular: Denies chest pain Respiratory/Chest Respiratory/Chest: Denies cough Gastrointestinal Gastrointestinal: Denies abdominal pain, nausea or vomiting Musculoskeletal Musculoskeletal: Reports other Details: bilateral knee pain ; Denies arthralgias or myalgias Integumentary Reports Abrasions Neurologic Neurologic: Reports headache(s); Denies paresthesias or weakness Psychiatric Psychiatric: Denies anxiety Hematologic/Lymphatic Hematologic/Lymphatic: Denies easy bleeding or easy bruising EXAM Physical Exam Const Vital Signs: 11/21/21 09:12 11/21/21 11:14 Temperature 97.8 F Temperature Source Oral Pulse Rate 91 60 Respiratory Rate 16 18 Blood Pressure 156/81 H Blood Pressure Mean 106 Pulse Ox 95 97 Oxygen Delivery Method Room Air Room Air Positive well nourished and well developed General Appearance ED: well developed HEENT Reports TM's clear HEENT Narrative: Laceration over right oriental orthodox. No other signs of trauma. trauma and tenderness Tympanic Membrane ED: Yes TM's clear Eyes PERRL and EOMs intact bilaterally Chest Wall inspection of chest normal and palpation of chest normal Resp normal respiratory effort and clear to auscultation bilaterally Cardio regular rhythm and no murmurs Rate: regular rate GI normal to inspection, nondistended, normoactive bowel sounds and non-tender Back/Spine normal to inspection and no thoracic nor lumbar tenderness Extremity full ROM Extremity Narrative: Tenderness to palpation over bilateral anterior knees with associated abrasions. No obvious deformity. Negative logroll's. No rotational deformity of the lower extremities. No bony tenderness of the upper extremities. Pelvis is stable. General Extremety ED: Negative for deformity General Extremity: Negative for deformity Neuro oriented x3, moves all extremities, no focal motor deficits and no sensory deficits noted Psych mental status grossly normal and thought process normal Skin Skin Narrative: 2.5 cm full-thickness linear laceration along the right oriental orthodox. No active bleeding. Superficial abrasions to the bilateral anterior knees, no active bleeding PROC Procedures Lacerations face: Length: 0.98 in Depth: Skin Shape: Linear Prep: Sterile Conditions and Chlorhexadine Laceration repair: Lidocaine with epi, Local, Skin sutures and Wound explored Irrigated (ml): 150 Number of Sutures/Renee: 4 Suture Information: Vicryl (rapid ), Simple and 5-0 MDM MDM MDM Narrative Medical decision making narrative: Patient evaluated for mechanical fall. She has a laceration to her right oriental orthodox. Due to age head CT, C-spine also obtained. X-rays of the knees tibia myself as well as radiology not show any acute process. Patient is found to have an acute subdural hematoma of the right temporal lobe with maximum thickness of 7 mm and mild mass-effect but no midline shift. Patient would like to go to [facility]. She continues have a normal neurologic exam. She is transferred to the ER. Case discussed with Dr. Gee there. Tetanus updated in the emergency room. Radiography Diagnostic Testing: Clinical Impression(s) from Imaging Studies Brain CT 11/21/21 09:56 IMPRESSION: 1. Acute hyperdense subdural hematoma overlying the right temporal lobe with a maximum thickness of 7 mm and mild mass effect but no midline shift. 2. No other additional findings or changes when compared to 10/19/2021. N.B. : The above Results were Read Back by Home Vines MD to Flores Ibrahim MD, and understanding confirmed on 11/21/2021 10:53:25 (ET). Electronically Signed: Home Vines MD at 10:49 EDT , Cervical Spine CT 11/21/21 09:[address]: [address] evidence of acute fracture or malalignment of the cervical spine down to upper T3 and the craniocervical junction. 2. Incidental bone island in the right lateral mass of C1. Electronically Signed: Home Vines MD at 10:53 EDT , Knee X-Ray 11/21/21 09:57 IMPRESSION: Negative left knee x-rays. Electronically Signed: Home Vines MD at 10:55 EDT , Knee X-Ray 11/21/21 10:20 IMPRESSION: Negative right knee x-rays. Electronically Signed: Home Vines MD at 10:56 EDT , Critical Care Time Critical Care Time: Yes Critical care time (excluding procedures): 30-74 minutes (35), Discussing w/Patient &/or Family/[employer] and Arranging Admission or Transfer Discharge Plan Triage Chief Complaint: Laceration ED Provider: Flores Ibrahim Dx/Rx/DC Orders Clinical Impression: Acute subdural hematoma, Face lacerations, Abrasion of knee, bilateral, Fall Prescriptions: No Action simvastatin 20 mg tablet 20 mg PO QHS 90 Days Qty: 90 Label Comments: cholecalciferol (vitamin D3) 25 mcg (1,000 unit) capsule 2,000 unit PO DAILY coenzyme Q10 [Co Q-10] 10 mg capsule 10 mg PO ONCE acetaminophen [Tylenol Arthritis Pain] 650 mg tablet extended release 650 mg PO Q8H BALANCE OF NATUARE VITAMIN 2 tab PO DAILY Rx Instructions: BALANCE OF NATURE VEGGIES BALANCE OF NATURE FRUITS carbidopa-levodopa 25-100 mg tablet 1 tab PO .COMPLEX Qty: 60 4RF Rx Instructions: 1 Tab PO daily for one week then 1 tab BID thereafter Primary Care Provider: Micheal Betancourt Referrals: Micheal Betancourt MD [Primary Care Provider] - Disposition Disposition: Acute Care Hospital Discharge Location: [facility]
--- NOTE | 2021-11-21 10:20 | RAD_ITS ---
EXAM: XR RIGHT KNEE COMPLETE, 4 OR MORE VIEWS CLINICAL INDICATION: Trauma injury with pain. TECHNIQUE: Four or more views of the right knee. This report was created using [employer] report generation technology. COMPARISON: None. FINDINGS: BONES/JOINTS: Unremarkable. No acute fracture. No subluxation. Normal alignment. Preservation of the joint space. No sclerotic or destructive changes observed. SOFT TISSUES: Unremarkable. No soft tissue swelling or gas. No radiopaque foreign body. RAD/Knee 4 or More Views IMPRESSION: Negative right knee x-rays. Electronically Signed: Home Vines MD at 10:56 EDT ,
[2021-11-21] MEDS: Acetaminophen 500 MG Tablet 1000 MG PO (10:44)
[2021-11-21] MEDS: Lidocaine/Epi/Tetracaine 50 ML 1 APPLIC TOPICAL (10:44)
[2021-11-21] MEDS: Diphth,Pertuss(Acell),Tet Vac 0.5 ML Vial IM (10:44)
[2021-11-21 11:14] VITALS: PULSE 60; RESP 18; O2SAT 97
[2021-11-21] MEDS: Lidocaine 1% /Epi 1:100 (20ml) 20 ML Vial INFILT (11:45)
[2021-11-21 12:04] VITALS: BP 128/43; PULSE 55; RESP 16; O2SAT 97
== END 2021-11-21 12:05 | disposition short-term general hospital (02) ==
PROVIDERS: Emergency Provider Emergency Medicine; PCP Family Medicine; Visit Provider Emergency Medicine
DX: S01.81XA Laceration without foreign body of other part of head, initial encounter (principal); G20 Parkinson's disease; S06.5X0A Traumatic subdural hemorrhage without loss of consciousness, initial encounter; S80.211A Abrasion, right knee, initial encounter; E78.00 Pure hypercholesterolemia, unspecified; S80.212A Abrasion, left knee, initial encounter; W01.0XXA Fall on same level from slipping, tripping and stumbling without subsequent striking against object, initial encounter; Z79.899 Other long term (current) drug therapy; Z23 Encounter for immunization
CPT/HCPCS: 12011; 70450; 72125; 73564; 90715; 99285; A4216

== ENCOUNTER 2021-11-22 14:49 | Inpatient (IN) | payer MEDICARE, OTHER, SELFPAY ==
[2021-11-22 14:56] VITALS: BP 145/81; PULSE 96; RESP 18; TEMP 36.8; O2SAT 97
[2021-11-22 15:03] VITALS: BMI 26.4
[2021-11-22 15:04] VITALS: BP 145/81; PULSE 96; RESP 18; TEMP 36.8; O2SAT 97
[2021-11-22 15:08] VITALS: BP 145/81; PULSE 96; RESP 18; TEMP 36.8; O2SAT 97
[2021-11-22] MEDS: Carbidopa/Levodopa 25/100 Tablet PO (16:39)
--- NOTE | 2021-11-22 19:42 | HP.PCM_ITS ---
HPI - General General Date of Admission: 11/22/21 Date of Service: 11/22/21 Chief Complaint: Here for rehab. HPI Narrative 11/21/2021 RAMOS PADRON, is a 76 Female who presents to [facility] Emergency Department with laceration. Fall, walking at [employer], and fell. She shuffles, then cannot stop, history of Parkinson Disease. Landed on bilateral knees, cut right synagogue. Right synagogue laceration repaired. X-rays of knees negative. CT head showed acute subdural hematoma right temporal lobe with maximum thickness 7mm, mild mass effect, but no midline shift. Normal neurologic exam. Transfer to [facility]. 11/21/2021 Admit to [facility]. Neurosurgery recommended no surgery. 11/22/2021 Admit to TCU with debility, here for rehabilitation, strengthening, prior to discharge home with . [facility] Medical History Abnormal bruising Back pain Carpal tunnel syndrome Difficulty balancing Encounter for screening for malignant neoplasm of lung in former smoker who quit in past 15 years with 30 pack year history or greater Endometrial cancer Fatigue High cholesterol History of tobacco use Hypertension Migraines Shoulder pain Uterine cancer Home Medications simvastatin 20 mg tablet 20 mg PO QHS cholesterol 90 days ##90 11/18/17 [History Last Taken Unknown] cholecalciferol (vitamin D3) 25 mcg (1,000 unit) capsule 2,000 unit PO DAILY supplement 01/31/21 [History Last Taken Unknown] coenzyme Q10 10 mg capsule (Co Q-10) 10 mg PO ONCE 04/28/21 [History Last Taken Unknown] BALANCE OF NATUARE VITAMIN 2 tab PO DAILY 11/09/21 [History Last Taken Unknown] acetaminophen 650 mg tablet,extended release (Tylenol Arthritis Pain) 650 mg PO Q4H PRN pain 1-3 11/09/21 [History Last Taken Unknown] carbidopa 25 mg-levodopa 100 mg tablet 1 tab PO BID parkisons 11/22/21 [History Last Taken Unknown] docusate sodium 100 mg capsule (Colace) 100 mg PO BID PRN stool softener 11/22/21 [History Last Taken Unknown] Allergy/AdvReac Type Severity Reaction Status Date / Time No Known Allergies Allergy Verified 11/09/21 09:17 Family History Mother CVA (cerebral vascular accident) Hypertension Arthritis Heart disease Father Cancer Skin cancer Sister CVA (cerebral vascular accident) Hypertension Brother Hypertension CVA (cerebral vascular accident) Surgical History H/O: hysterectomy History of hip surgery History of left hip replacement History of left shoulder replacement Social History household members: spouse housing: house Smoking Status: Never smoker Tobacco: How many years used: 40 Electronic Cigarette Use: not used second hand exposure: Yes quit status: has quit before counseling given: provider counseling alcohol intake: never what type of physical activity do you participate in: walking and other details: golf do you feel safe at home: Yes ROS Constitutional Constitutional: Denies chills, fever(s) or weight gain ENT HEENT: Denies headache(s), nasal congestion or nasal discharge Cardiovascular Cardiovascular: Denies chest pain or palpitations Respiratory/Chest Respiratory/Chest: Denies cough, excessive phlegm production or shortness of breath with exertion Gastrointestinal Gastrointestinal: Denies abdominal pain, nausea or vomiting Genitourinary Genitourinary: Denies dysuria Musculoskeletal Musculoskeletal: Denies joint pain or joint swelling Integumentary Integumentary: Denies rash or wounds Neurologic Neurologic: Denies focal weakness, numbness or tingling Psychiatric Psychiatric: Denies anxiety, auditory hallucinations, depression, homicidal ideation or suicidal ideation Vital Signs Vital Signs Vital Signs: 11/22/21 15:04 11/22/21 15:40 11/22/21 14:56 Temperature 98.2 F 98.2 F Temperature Source Oral Oral Pulse Rate 96 96 Pulse Rhythm Regular Pulse Strength Normal (2+) Respiratory Rate 18 18 Respiratory Effort Normal Non-Labored Respiratory Depth Normal Respiratory Pattern Normal Blood Pressure 145/81 H 145/81 H Blood Pressure Mean 102 102 Blood Pressure Source Monitor Monitor Blood Pressure Position Sitting Sitting Blood Pressure Location Right Arm Right Arm Pulse Ox 97 97 Oxygen Delivery Method Room Air Room Air Room Air 11/22/21 15:08 Temperature 98.2 F Temperature Source Oral Pulse Rate 96 Pulse Rhythm Pulse Strength Respiratory Rate 18 Respiratory Effort Respiratory Depth Respiratory Pattern Blood Pressure 145/81 H Blood Pressure Mean 102 Blood Pressure Source Monitor Blood Pressure Position Sitting Blood Pressure Location Right Arm Pulse Ox 97 Oxygen Delivery Method Room Air Weight Weight: 65.726 kg Body Mass Index (BMI) 26.4 Physical Exam Const alert General Appearance: cooperative HEENT normocephalic Eyes PERRL and EOMs intact bilaterally Neck supple, no JVD and no carotid bruits Resp normal respiratory effort, normal air movement and clear to auscultation bilaterally Cardio regular rate and regular rhythm GI normal to inspection, nondistended, normoactive bowel sounds, non-tender and non-distended Extremity normal capillary refill General Extremity: Negative for edema Skin no rashes or lesions noted General Skin Exam: no breakdown Psych affect normal Appearance: appropriate Results Lab / Micro Data Micro: Microbiology 11/22/21 15:05 Nasal Secretion SARS-CoV-2 Antigen (Rapid) - Final Assessment & Plan Assessment/Plan (1) Debility: (2) Subdural hematoma: (3) Parkinson disease: (4) Hyperlipidemia: (5) Vitamin D deficiency: PLAN: Plan 76 year old female with below past medical history significant for Parkinson Disease, hospitalized for fall, right temporal subdural hematoma, treated nonsurgically, admitted to TCU with debility, here for rehabilitation, strengthening, prior to discharge home with . * Debility - PT/OT. * Pain - Tylenol 1000mg q6h prn pain (1-10). * Bowel - Senna/colace 1 tablet bid, Dulcolax 10mg daily prn. * Adult immunization - Administer pneumonia vaccine, covid19 vaccine, flu vaccine as appropriate. * DVT prophylaxis - Hold, subdural hematoma. * Left shoulder pain - Arthritis compound cream bid. * Hyperlipidemia - Atorvastatin 10mg qhs. * Parkinson Disease - Sinemet 25/100mg bidac. * Dry Eye - Artificial tears 2gtt ou q1h prn.
[2021-11-22] MEDS: Arthritis Pain Compound 60 CLICK TUBE TOPICAL (20:45)
[2021-11-22] MEDS: Atorvastatin Calcium 10 MG Tablet PO (20:48)
[2021-11-23 05:36] LABS: Absolute Lymphocyte Count 1.87 X10^3/uL (0.83-4.51); Absolute Neutrophil Count 5.1 X10^3/uL (2.0-7.7); Basophil# 0.02 X10^3/uL; Basophil% 0.3 % (0-1); Eosinophil# 0.04 X10^3/uL; Eosinophils% 0.5 % (0-5); Hematocrit 44.6 % (37-47); Hemoglobin 14.9 g/dL (12.0-15.0); Lymphocyte # 1.87 X10^3/ul (0.83-4.51); Lymphocyte % 23.8 % (19-41); Mean Corp Hgb Conc 33.4 g/dL (32-36); Mean Corpuscular Hgb 31.2 pg (27.0-32.0); Mean Corpuscular Volume 93.3 fL (81-99); Mean Platelet Vol. 9.1 fl (6.2-12.0); Monocyte# 0.79 X10^3/uL; Monocyte% 10.1 % (0-10); NRBC Flagged by Analyzer 0 % (0-5); Neutrophil # 5.11 X10^3/uL (2.7-7.7); Neutrophil % 64.9 % (47-70); Platelet Count 229 K/mm3 (150-450); RBC Distribution Width CV 13.7 % (11.6-14.6); RBC Distribution Width SD 47.1 fl (35.1-43.9); Red Blood Count 4.78 M/mm3 (4.2-5.4); White Blood Count 7.9 K/mm3 (4.4-11.0)
[2021-11-23] MEDS: Arthritis Pain Compound 60 CLICK TUBE TOPICAL ×2 (06:23→18:59)
[2021-11-23] MEDS: Carbidopa/Levodopa 25/100 Tablet PO ×2 (06:23→15:25)
[2021-11-23] MEDS: Senna/Docusate Sodium 1 Tablet PO (06:23)
[2021-11-23 06:32] LABS: Anion Gap 9 (5-15); BUN 17 mg/dL (7-18); BUN/Creat Ratio 20.5 RATIO (10-20); Calcium,Total 8.8 mg/dL (8.5-10.1); Chloride 108 mmol/L (98-107); Creatinine, Serum 0.83 mg/dL (0.55-1.02); EST Glomerular Filtration Rate 71 mL/min (>60); Est Glom Filt Rate - Afr Amer 86 mL/min (>60); Estimated Creatinine Clearance 45.61 ml/min; Glucose 102 mg/dL (74-106); Potassium 3.4 mmol/L (3.5-5.1); Sodium Level 141 mmol/L (136-145)
[2021-11-23] MEDS: Potassium Chloride Oral Tablet 20 MEQ PO (09:11)
[2021-11-23] MEDS: Tuberculin,Purif.prot.deriv. 50 TU/ML Vial 0.1 ML ID (09:12)
--- NOTE | 2021-11-23 10:16 | CASEMGMT ---
Social Work Met with patient to complete initial assessment. Introduced self and role. Verified contacts. Discussed code status and MOLST form. Pt wishes to be DNR-CCA, no intubation. DNR and MOLST form signed. Nursing notified. Requested bring in a copy of pt's advanced directives. Educated to Medicare benefit. Encouraged to contact secondary insurance to ensure copay coverage. Pts goal is to return home with at [facility]. Pt reports to having multiple falls r/t Parkinson's dx. SW educated to medical alert. Pt agreed. Resources provided. SW to continue to follow for DC planning. Sharonda Finch, FOOD STYLIST TILE SETTER
[2021-11-23 11:55] VITALS: RESP 18
--- NOTE | 2021-11-23 12:37 | PCM.PN.DRR ---
TCU RX Drug Regimen Review Subjective: 76 YOF Admitted to TCU s/p hospitalization after a fall resulting in a subdural hematoma. Admitted to TCU from outside facility for rehabilitation and strengthening prior to discharge home with her . Objective: Allergies No Known Allergies Allergy (Verified 11/09/21 09:17) Current Medications Generic Name Dose Route Start Last Admin Trade Name Freq PRN Reason Stop Dose Admin Acetaminophen 1,000 mg 11/22/21 20:01 Acetaminophen 500 Mg Tablet PO Q6H PRN PRN Pain Score 1-10 Atorvastatin Calcium 10 mg 11/22/21 22:00 11/22/21 20:48 Atorvastatin Calcium 10 Mg Tablet PO 10 mg QHS TOMMY Administration Bisacodyl 10 mg 11/22/21 20:00 Bisacodyl 5 Mg Tablet PO DAILY PRN CONSTIPATION Carbidopa/Levodopa 1 tablet 11/22/21 16:00 11/23/21 06:23 Carbidopa/Levodopa 25/100 Tablet PO 1 tablet BIDAC TOMMY Administration Compound Med 2 click 11/22/21 20:00 11/23/21 06:23 Arthritis Pain Compound 60 Click Tube TOPICAL 2 click BID TOMMY Administration Protocol Glycerin/Hypromellose/Polyethylene 2 drp 11/22/21 17:39 Glycerin/Hypromellose/Uxb663 15 Ml Bottle EACH EYE Q1H PRN DRY EYES Senna/Docusate Sodium 1 tablet 11/23/21 06:00 11/23/21 06:23 Senna/Docusate Sodium 1 Tablet PO 1 tablet BID TOMMY Administration Tuberculin PPD 0.1 ml 11/30/21 10:00 Tuberculin,Purif.Prot.Deriv. 50 Tu/Ml Vial ID 11/30/21 10:01 X1 ONE Problem List (Last Reviewed 11/22/21 @ 19:[address] Duncan Pollard MD) Vitamin D deficiency (Acute) Hyperlipidemia (Acute) Parkinson disease (Acute) Subdural hematoma (Acute) Debility (Acute) Vital Signs Temp Pulse Resp BP Pulse Ox O2 Del Method 98.2 F 96 18 145/81 H 97 Room Air 11/22/21 15:08 11/22/21 15:08 11/22/21 15:08 11/22/21 15:08 11/22/21 15:08 11/22/21 15:40 Oxygen Delivery Method Room Air Weight: 65.726 kg Body Mass Index (BMI) 26.4 Sodium 141 mmol/L (136-145) 11/23/21 05:08 Potassium 3.4 mmol/L (3.5-5.1) L 11/23/21 05:08 Chloride 108 mmol/L (98-107) H 11/23/21 05:08 Carbon Dioxide 24.0 mmol/L (21.0-32.0) 11/23/21 05:08 Anion Gap 9 (5-15) 11/23/21 05:08 BUN 17 mg/dL (7-18) 11/23/21 05:08 Creatinine 0.83 mg/dL (0.55-1.02) 11/23/21 05:08 Est GFR (MDRD) Af Amer 86 mL/min (>60) 11/23/21 05:08 Est GFR (MDRD) Non-Af 71 mL/min (>60) 11/23/21 05:08 BUN/Creatinine Ratio 20.5 RATIO (10-20) H 11/23/21 05:08 Glucose 102 mg/dL (74-106) 11/23/21 05:08 Assessment/Plan: 1. Pain/ Left Shoulder pain/Arthritis: Arthritis Pain Compound Cream 1 application topically BID, Tylenol 1000mg PO Q6h PRN Pain 1-10. Please continue to monitor for increased/decreased S/S pain, Local site reaction/ irritation with topical application, PRN medication usage. -The patient has utilized zero doses of PRN Tylenol at this time, pain appears to be well controlled. 2. Parkinson Disease: Sinemet 1 tab PO BIDAC. Please continue to monitor neurological function, S/S dyskinesia, headache, dizziness, constipation. Patient also getting therapy. Patient has a history of frequent falls and EMR reports pt shuffles when she walks. Please continue to monitor closely given elevated fall risk. 3. HLD: Lipitor 10mg PO QHS. Please continue to monitor lipid panel annually or sooner if clinically indicated. Per EMR review, the patient has not had a lipid panel drawn since 2019, please consider re-drawing lipid panel, thank you. 4. Bowel: Senna/Docusate 1 tab PO BID, Dulcolax 10mg PO Daily PRN. Please continue to monitor for increased/decreased constipation and/or diarrhea. - The patient has no yet had a bowel movement since admission (<48hrs since admission). If patient dose not have a bowel movement in 48hrs, please consider giving PRN Dulcolax, thank you. 5. Dry Eyes: Artificial Tears 2 gtt OU Q1h PRN. Please continue to monitor for medication effectiveness. 6. Hypokalemia: Potassium labs from 11/23 shows a K level = 3.4. The patient did receive a one time replacement dose of 20meq this morning. Please continue to monitor and replace as needed until potassium levels normalize, thank you. Assessment/Plan for indications treated with psychotropic medications: -The patient is not on any psychotropic medications at this time. Medical chart and medication regimen reviewed. The following medication irregularities or issues were identified: 1. Lipitor: Taking for HLD. Patient has not had lipid panels drawn per EMR review since 2019. Please consider re-drawing a lipid panel if clinically indicated, thank you. Date of Note:: 11/23/21
--- NOTE | 2021-11-23 15:25 | CHAPLAIN ---
Type of Pastoral Visit _x__ Initial Visit ___ Follow-up Visit ___ On-call Visit ___ General Patient Visit ___ Spiritual Assessment ___ Family Conference ___ Bereavement ___ Rapid Response ___ Code Blue ___ Other (describe below) Pastoral Care Referral From _x__ Patient ___ Family ___ Nurse ___ Physician ___ Band Reamer Machine Operator ___ Sales Development Consultant ___ Other (describe below) Sacrament/Intervention _x__ Active listening ___ Anointing ___ Anabaptism ___ Bereavement ___ Communion ___ Makayla exploration ___ _x__ Life review _x__ Prayer ___ Reconciliation ___ Sacrament of Sick _x__ Supportive presence ___ Wedding ___ Other (describe below) Pastoral Comments patient explains her situation from recent falls and new diagnosis of Parkinsons; assessing how patient is coping with these changes on emotional and spiritual level; pt has good support; pt reports feeling like she is doing well concerning her situation; friends arrived to visit with pt at this time
[2021-11-23 16:00] VITALS: BP 133/73; PULSE 80; RESP 18; TEMP 36.4; O2SAT 94
[2021-11-23] MEDS: Acetaminophen 500 MG Tablet 1000 MG PO (19:02)
[2021-11-23] MEDS: Atorvastatin Calcium 10 MG Tablet PO (19:54)
[2021-11-24] MEDS: Arthritis Pain Compound 60 CLICK TUBE TOPICAL ×2 (05:55→17:42)
[2021-11-24] MEDS: Carbidopa/Levodopa 25/100 Tablet PO ×2 (05:56→17:42)
[2021-11-24 06:34] LABS: Anion Gap 7 (5-15); BUN 17 mg/dL (7-18); BUN/Creat Ratio 24.8 RATIO (10-20); Calcium,Total 9.1 mg/dL (8.5-10.1); Chloride 110 mmol/L (98-107); Creatinine, Serum 0.68 mg/dL (0.55-1.02); EST Glomerular Filtration Rate 89 mL/min (>60); Est Glom Filt Rate - Afr Amer 107 mL/min (>60); Estimated Creatinine Clearance 37.85 ml/min; Glucose 96 mg/dL (74-106); Potassium 3.5 mmol/L (3.5-5.1); Sodium Level 140 mmol/L (136-145)
[2021-11-24 14:00] VITALS: BP 138/56; PULSE 93; RESP 14; TEMP 36.6; O2SAT 95
[2021-11-24] MEDS: Atorvastatin Calcium 10 MG Tablet PO (21:42)
[2021-11-24 21:54] VITALS: RESP 18
[2021-11-25] MEDS: Carbidopa/Levodopa 25/100 Tablet PO ×2 (06:02→16:58)
[2021-11-25] MEDS: Arthritis Pain Compound 60 CLICK TUBE TOPICAL ×2 (06:03→16:58)
[2021-11-25 10:30] VITALS: PULSE 79; RESP 18; O2SAT 94
[2021-11-25 14:00] VITALS: BP 153/66; PULSE 89; RESP 16; TEMP 36.6; O2SAT 94
[2021-11-25] MEDS: Atorvastatin Calcium 10 MG Tablet PO (20:58)
--- NOTE | 2021-11-26 05:55 | NURSING ---
Pt. requests that arthritic cream to be applied after shower.
[2021-11-26] MEDS: Carbidopa/Levodopa 25/100 Tablet PO ×2 (05:57→16:37)
[2021-11-26] MEDS: Arthritis Pain Compound 60 CLICK TUBE TOPICAL ×2 (08:07→16:38)
[2021-11-26 14:00] VITALS: BP 107/71; PULSE 83; RESP 18; TEMP 36.7; O2SAT 95
--- NOTE | 2021-11-26 21:30 | NURSING ---
Paged Dr. Pollard w/ immediate return call. Questioned if artificial tears can be changed to ointment per pt request as this is the formula she uses at home. Telephone order read back to change drops to one ribbon of gel to each eye every hours as needed for dry eyes.
[2021-11-26 22:40] VITALS: PULSE 68; RESP 18; O2SAT 93
[2021-11-26] MEDS: Atorvastatin Calcium 10 MG Tablet PO (22:48)
[2021-11-27] MEDS: Carbidopa/Levodopa 25/100 Tablet PO ×2 (06:13→16:43)
[2021-11-27] MEDS: Carboxymethylcellulose sodium gel dropperette 1 EACH EACH EYE (06:13)
[2021-11-27] MEDS: Acetaminophen 500 MG Tablet 1000 MG PO ×2 (06:16→15:01)
[2021-11-27] MEDS: Arthritis Pain Compound 60 CLICK TUBE TOPICAL ×2 (09:40→16:43)
[2021-11-27 14:00] VITALS: BP 141/67; PULSE 78; RESP 16; TEMP 36.4; O2SAT 92
--- NOTE | 2021-11-27 14:16 | NURSING ---
Drag Out Worker Note; Activity Asst: complete
[2021-11-27 15:21] VITALS: PULSE 78; RESP 16; O2SAT 92
[2021-11-27] MEDS: Atorvastatin Calcium 10 MG Tablet PO (20:14)
[2021-11-28] MEDS: Carbidopa/Levodopa 25/100 Tablet PO ×2 (06:00→17:20)
[2021-11-28] MEDS: Arthritis Pain Compound 60 CLICK TUBE TOPICAL ×2 (09:46→17:20)
[2021-11-28 14:00] VITALS: BP 154/71; PULSE 75; RESP 16; TEMP 36.6; O2SAT 94
[2021-11-28] MEDS: Atorvastatin Calcium 10 MG Tablet PO (22:10)
[2021-11-28 22:16] VITALS: PULSE 76; RESP 16; O2SAT 94
[2021-11-29] MEDS: Carbidopa/Levodopa 25/100 Tablet PO ×2 (06:23→16:40)
[2021-11-29] MEDS: Arthritis Pain Compound 60 CLICK TUBE TOPICAL ×2 (08:53→16:40)
[2021-11-29 08:55] VITALS: PULSE 76; RESP 16; O2SAT 95
--- NOTE | 2021-11-29 10:43 | CASEMGMT ---
Social Work IDT met with patient and for care plan meeting. Discussed patient's progress in PT/OT/ST/SN. Educated to Medicare benefit. Pt is requesting to DC home. IDT agreeable to DC 12/02. Pt requesting [facility] PT/OT/ST. No DME needs. SW provided medical alert resources, per pt request. Referral made to [facility]. to transport. Plan: DC home with 12/02, [facility] PT/OT/ST. CHAD SmithW
--- NOTE | 2021-11-29 12:55 | NURSING ---
Cake Froster Note; MDS complete
[2021-11-29 14:00] VITALS: BP 156/79; PULSE 94; RESP 16; TEMP 36.5; O2SAT 95
--- NOTE | 2021-11-29 18:46 | PCM.DC.SUM ---
Providers Date of Admission: 11/22/21 Primary Care Physician: Dr. Micheal Betancourt MD Reason For Visit: SDH Diagnosis Discharge Diagnosis (1) Debility: Status: Acute Code(s): R53.81 - Other malaise (2) Subdural hematoma: Status: Acute Code(s): S06.5X9A - Traumatic subdural hemorrhage with loss of consciousness of unspecified duration, initial encounter (3) Parkinson disease: Status: Acute Code(s): G20 - Parkinson's disease (4) Hyperlipidemia: Status: Acute Code(s): E78.5 - Hyperlipidemia, unspecified (5) Vitamin D deficiency: Status: Acute Code(s): E55.9 - Vitamin D deficiency, unspecified Plan 76 year old female with below past medical history significant for Parkinson Disease, hospitalized for fall, right temporal subdural hematoma, treated nonsurgically, admitted to TCU with debility, here for rehabilitation, strengthening, prior to discharge home with . Debility - PT/OT. Pain - Tylenol 1000mg q6h prn pain (1-10). Bowel - Senna/colace 1 tablet bid, Dulcolax 10mg daily prn. Adult immunization - Administer pneumonia vaccine, covid19 vaccine, flu vaccine as appropriate. DVT prophylaxis - Hold, subdural hematoma. Left shoulder pain - Arthritis compound cream bid. Hyperlipidemia - Atorvastatin 10mg qhs. Parkinson Disease - Sinemet 25/100mg bidac. Dry Eye - Artificial tears 2gtt ou q1h prn. Medications at Discharge Home Medications simvastatin 20 mg tablet 20 mg PO QHS cholesterol 90 days ##90 11/18/17 carbidopa 25 mg-levodopa 100 mg tablet 1 tab PO BID parkisons 11/22/21 acetaminophen 500 mg tablet 1,000 mg PO Q6H PRN PRN Pain Score 1-10 #0 tabs 11/29/21 carboxymethylcellulose sodium 1 % eye gel in a dropperette (TheraTears) 1 ea EACH EYE Q1H PRN DRY EYES #0 ea 11/29/21 Hospital Course Operations None Procedures None Summary of Care Provided Minutes Spent on Discharge: 35 Hospital Course: 76 year old female with below past medical history significant for Parkinson Disease, hospitalized for fall, right temporal subdural hematoma, treated nonsurgically, admitted to TCU with debility, here for rehabilitation, strengthening, prior to discharge home with . Discharge home with 12/02/2021, [facility] PT/OT/ST. Physical Exam Const alert General Appearance: cooperative HEENT normocephalic Eyes PERRL and EOMs intact bilaterally Neck supple, no JVD and no carotid bruits Resp normal respiratory effort, normal air movement and clear to auscultation bilaterally Cardio regular rate and regular rhythm GI normal to inspection, nondistended, normoactive bowel sounds, non-tender and non-distended Extremity normal capillary refill General Extremity: Negative for edema Skin no rashes or lesions noted General Skin Exam: no breakdown Psych affect normal Appearance: appropriate Weight / BMI Weight Weight: 66.361 kg Body Mass Index (BMI) 26.4 ABG / Lab / Microbiology Data Result Diagrams: 11/23/21 05:08 11/24/21 05:15 Microbiology: Microbiology 11/22/21 15:05 Nasal Secretion SARS-CoV-2 Antigen (Rapid) - Final D/C Instructions Discharge Diet: No restrictions Discharge Activity: Return to Normal Activity, May Shower and Use Walker Weight Bearing Status: Weight bearing as tolerated Call your doctor if you observe: Fever of 101 or Higher, Inability to urinate, Inability to have a bowel movement, Shortness of breath, Dizziness, Fainting spells, Swelling in the ankles, Chest pain and Uncontrolled pain Additional Instructions: Discharge home with 12/02/2021, [facility] PT/OT/ST. Please Follow Up With: [facility] Radiology dept When: As scheduled. Meaningful Use Info Meaningful Use Diagnoses (Choose all that apply): None applicable Discharge Plan Admission Admit Date/Time: 11/22/21 14:49 Primary Reason for Your Visit: Debility. Attending Provider: Duncan Pollard Chi Primary Care Provider: Micheal Betancourt Instructions Additional Instructions / Restrictions: Discharge home with 12/02/2021, [facility] PT/OT/ST. Discharge Orders/Prescriptions Prescriptions: New acetaminophen 500 mg Tablet 1,000 mg PO Q6H PRN PRN (Reason: Pain Score 1-10) Qty: 0 0RF carboxymethylcellulose sodium [TheraTears] 1 % Dropperette,Gel 1 ea EACH EYE Q1H PRN (Reason: DRY EYES) Qty: 0 0RF Continued simvastatin 20 mg tablet 20 mg PO QHS 90 Days Qty: 90 Label Comments: carbidopa-levodopa 25-100 mg tablet 1 tab PO BID Discontinued cholecalciferol (vitamin D3) 25 mcg (1,000 unit) capsule 2,000 unit PO DAILY coenzyme Q10 [Co Q-10] 10 mg capsule 10 mg PO ONCE acetaminophen [Tylenol Arthritis Pain] 650 mg tablet extended release 650 mg PO Q4H PRN (Reason: pain 1-3) BALANCE OF NATUARE VITAMIN 2 tab PO DAILY Rx Instructions: BALANCE OF NATURE VEGGIES BALANCE OF NATURE FRUITS docusate sodium [Colace] 100 mg Capsule 100 mg PO BID PRN (Reason: stool softener) Referrals / Follow Up: Micheal Betancourt MD [Primary Care Provider] - Within 1 Week Disposition Disposition (needs filled in before D/C Order can be placed): Home, Self Care
[2021-11-29] MEDS: Acetaminophen 500 MG Tablet 1000 MG PO (20:41)
[2021-11-29] MEDS: Atorvastatin Calcium 10 MG Tablet PO (20:43)
[2021-11-30 05:36] LABS: Absolute Lymphocyte Count 3.44 X10^3/uL (0.83-4.51); Absolute Neutrophil Count 5.1 X10^3/uL (2.0-7.7); Basophil# 0.04 X10^3/uL; Basophil% 0.4 % (0-1); Eosinophil# 0.12 X10^3/uL; Eosinophils% 1.3 % (0-5); Hematocrit 41.3 % (37-47); Hemoglobin 13.8 g/dL (12.0-15.0); Lymphocyte # 3.44 X10^3/ul (0.83-4.51); Lymphocyte % 36.8 % (19-41); Mean Corp Hgb Conc 33.4 g/dL (32-36); Mean Corpuscular Hgb 30.8 pg (27.0-32.0); Mean Corpuscular Volume 92.2 fL (81-99); Monocyte# 0.62 X10^3/uL; Monocyte% 6.6 % (0-10); NRBC Flagged by Analyzer 0 % (0-5); Neutrophil # 5.05 X10^3/uL (2.7-7.7); Neutrophil % 54.2 % (47-70); Platelet Count 311 K/mm3 (150-450); RBC Distribution Width CV 13.2 % (11.6-14.6); RBC Distribution Width SD 44.9 fl (35.1-43.9); Red Blood Count 4.48 M/mm3 (4.2-5.4); White Blood Count 9.3 K/mm3 (4.4-11.0)
[2021-11-30 06:00] LABS: Anion Gap 7 (5-15); BUN 16 mg/dL (7-18); BUN/Creat Ratio 19.3 RATIO (10-20); Calcium,Total 8.6 mg/dL (8.5-10.1); Chloride 109 mmol/L (98-107); Creatinine, Serum 0.83 mg/dL (0.55-1.02); EST Glomerular Filtration Rate 71 mL/min (>60); Est Glom Filt Rate - Afr Amer 86 mL/min (>60); Estimated Creatinine Clearance 45.61 ml/min; Glucose 96 mg/dL (74-106); Potassium 3.6 mmol/L (3.5-5.1); Sodium Level 141 mmol/L (136-145)
[2021-11-30] MEDS: Carbidopa/Levodopa 25/100 Tablet PO ×2 (06:14→16:40)
[2021-11-30] MEDS: Arthritis Pain Compound 60 CLICK TUBE TOPICAL ×2 (08:07→16:42)
[2021-11-30] MEDS: Tuberculin,Purif.prot.deriv. 50 TU/ML Vial 0.1 ML ID (10:05)
--- NOTE | 2021-11-30 10:41 | MDS.RN ---
Information for the mds was obtained from review of the clinical record, interview of resident, staff, and direct observation of resident's care.
[2021-11-30 13:37] VITALS: BP 138/63; PULSE 80; RESP 16; TEMP 36.6; O2SAT 94
[2021-11-30] MEDS: Acetaminophen 500 MG Tablet 1000 MG PO (20:13)
[2021-11-30] MEDS: Atorvastatin Calcium 10 MG Tablet PO (20:14)
[2021-11-30 21:40] VITALS: O2SAT 94
[2021-12-01] MEDS: Arthritis Pain Compound 60 CLICK TUBE TOPICAL ×2 (05:36→17:06)
[2021-12-01] MEDS: Carbidopa/Levodopa 25/100 Tablet PO ×2 (05:36→17:06)
[2021-12-01 09:30] VITALS: PULSE 78; RESP 18; O2SAT 95
--- NOTE | 2021-12-01 09:40 | NURSING ---
DURING PT ASSESSMENT, THIS NURSE FOUND PT HAD A SMALL SKIN TEAR ON LEFT ARM. ASKED PT WHAT HAPPENED PT STATED I GOT UP DURING THE NIGHT TO GO TO THE BATH ROOM AND HIT MY ARM ON SOME THING. SITE CLEANED AND STRI STRIP APPLIED. RN AND LUCERO AWARE.
[2021-12-01] MEDS: Acetaminophen 500 MG Tablet 1000 MG PO (12:53)
[2021-12-01 14:00] VITALS: BP 135/72; PULSE 75; RESP 18; TEMP 36.8; O2SAT 96
[2021-12-01] MEDS: Atorvastatin Calcium 10 MG Tablet PO (22:18)
[2021-12-02] MEDS: Carbidopa/Levodopa 25/100 Tablet PO (06:53)
[2021-12-02] MEDS: Arthritis Pain Compound 60 CLICK TUBE TOPICAL (06:53)
== END 2021-12-02 10:15 | disposition home or self-care (01) | DRG 950 ==
PROVIDERS: Admitting Provider Family Medicine Geriatric Medicine; PCP Family Medicine; Visit Provider Family Medicine Geriatric Medicine
DX: S06.5X9D Traumatic subdural hemorrhage with loss of consciousness of unspecified duration, subsequent encounter (principal); E55.9 Vitamin D deficiency, unspecified; G20 Parkinson's disease; M19.012 Primary osteoarthritis, left shoulder; I10 Essential (primary) hypertension; E78.00 Pure hypercholesterolemia, unspecified; W19.XXXD Unspecified fall, subsequent encounter; Z79.899 Other long term (current) drug therapy; S01.81XD Laceration without foreign body of other part of head, subsequent encounter; Z23 Encounter for immunization
CPT/HCPCS: 36415; 80048; 85025; 87811; 92507; 92523; 97110; 97116; 97162; 97166; 97530; 97535; 97802; G0009; 90686

== ENCOUNTER → 2022-02-06 | Outpatient (CLI) | payer MEDICARE, OTHER, SELFPAY ==
[2022-02-08 09:02] LABS: Cancer Antigen 125 11.4 U/mL (0.0-38.1)
== END | disposition home or self-care (01) ==
LOC: MTLAB 12:39
PROVIDERS: PCP Family Medicine; Referring Provider Obstetrics & Gynecology Gynecologic Oncology; Visit Provider Obstetrics & Gynecology Gynecologic Oncology
DX: C54.1 Malignant neoplasm of endometrium (principal)
CPT/HCPCS: 36415; 86304

== ENCOUNTER 2022-02-19 10:30 | Outpatient (RCR) | payer MEDICARE, OTHER, SELFPAY ==
--- NOTE | 2021-12-05 15:38 | HP.SP.EV_ITS ---
History - History Date of Eval: 12/05/21 Medical Diagnosis (from RX): PD Date of Onset of Diagnosis: Previous speech therapy: Yes Results: While Other Relevant Medical History/Diagnoses/Surgery: CT head showed acute subdural hematoma right temporal lobe with maximum thickness 7mm, mild mass effect, but no midline shift on 11/21/21, Abnormal bruising. Back pain. Carpal tunnel syndrome. Difficulty balancing. Encounter for screening for malignant neoplasm of lung in former smoker who quit in past 15 years with 30 pack year history or greater. Endometrial cancer. Fatigue. High cholesterol. History of tobacco use. Hypertension. Migraines. Shoulder pain. Uterine cancer Medications related to this diagnosis: carbidopa-levodopa 25-100 m BID Smoking Status: Never smoker Hx Smoking: Yes - quit pd for 40 yrs Hx Tobacco Use: No - Pain Is pain an issue with your current prescribed condition?: No Patient Allergies - Allergies Allergies No Known Allergies Allergy (Verified 11/09/21 09:17) Objective Dysarthira/Motor - Speech Intelligibility Phonemes: WNL Single Words: WNL Sentences: WNL Conversation: WFL Objective Voice - Date of Diagnosis Date of diagnosis: November 2021 Previous Speech Therapy (If yes, describe): Yes Details of therapy: Short term therapy while in TCU at [facility]. - Medications Familiar with on/off effect: No - Implantation Deep brain implantation (If yes, answer next question): No - Objective data Objective Data: Objective data: Sound pressure level (SPL acoustic correlation of vocal loudness) was measured with a sound level meter at a distance of 40 cm from the patient's mouth. Average conversational loudness is 70-80 dB and sustained phonation duration is 15 to 20 seconds for a typical adult. Sustained Phonation Intensity (dB SPL): 64.8 dB Sustained Phonatin duration (seconds): 7 Is the individual stimulable to increase vocal intensity: Yes - increased to 74.1 dB with only one verbal cue. Vocal Intensity at Sentence Level (dB SPL): 64 dB Vocal Intensity at Conversational Level (dB SPL): 55 dB Voice Handicap Index (VHI) - VHI VHI Administered: Yes VHI: Patient completed the Voice Handicap Index, which is a 30 item, self administered questionnaire that asks an individual to describe their voice and the effects of their voice on their life. Three subscales cover the areas of functional, emotional, and physical aspects of the voice disorders. Points from the questions can be combined to assign a total score, or they can be combined by subscale. Results for the VHI are as follows: Date: 12/05/21 - VHI Test Functional: 13. Patient reported difficult with people being able to hear her, as well as in a noisy environment and throughout the house. She also reported avoiding groups of people due to her voice. Physical: She reporting running out of air when speaking, variation in voice throughout the day, dry vocal quality, and her clarity is unpredictable. Emotional: She stated that others don't understand her voice problems and her voice makes her feel incompetent. Total Severity Rating: Moderate (31-60) HDQLIFE - Speech Difficulties - In the past 7 days. It was difficult for other people to understand me.: Sometimes Is was difficult to speak clearly?: Never - In the past 7 days.. How often did you limit your social activites because you had difficulty speaking?: Never - In the past 7 days... I had trouble speaking.: Not at all I was frustrated by my speech difficulties.: A little bit - How much DIFFICULTY do you have... ...saying what you want to say?: A little difficulty - Score HDQLIFE Speech Difficulties Raw Score: 10 HDQLIFE Speech Difficulties T - Score: 50 Plan - Plan Plan: A vocal intensity based intervention approach applying LSVT principles to improve her speech intelligibility will be used. Given the progressive nature of her primary diagnosis, It is not anticipated for a full return to pre-morbid level of functioning, though will expect to achieve gains in speech intelligibility as well as maintain current level of functioning. To achieve this, the patient will require continued skilled speech-language intervention not only through the current intervention cycle but will likely benefit from repeated intervention cycles to maintain communication efficiency. - Recommendations Treatment Warranted: Yes Treatment Warranted: Voice - Progress Prognosis: Good - Frequency Duration: 4 Weeks - Patient/Family Goal Patient/Family Goal: Patient wishes to be louder to communicate. - Goals that are Established Determination:: Goals will be added/modified as deemed necessary and appropriate. Therapy will be discontinued when results of re-evaluation indicate therapy is no longer needed or lack of progress has been documented. - Goal #1-5 Goal #1: Patient will increase vocal loudness to reach a target sound pressure level of 75 dB [employer]ER with 1 cue during sustained phonation, which will help increase vocal respiratory support for functional communication. Goal #2: Patient will increase vocal loudness to reach a target sound pressure level of 70 dB [employer] with 1 cue during reading at the word and sentence level, which will help increase vocal respiratory support for functional communication. Goal #3: Patient will increase vocal loudness to reach a target sound pressure level of 65 dB [employer] with 1 cue during conversation for functional communication. Goal #4: Patient will sustain phonation for 10-12 seconds to increase lung capacity for increased volume and functional communciation. Education - Patient has Indicated that the Following Identified Educational Needs: None The Patient has indicated that they have no educational or learning abilities that may effect their care.: Yes - Patient Instruction Patient Education: Diagnosis Person Taught: Patient Teaching Method: Discussion Response to teaching: Verbalize understanding
--- NOTE | 2021-12-12 12:58 | HP.PTEVAL ---
Patient's Visit Information RAMOS PADRON is a 76 year old F referred to Physical Therapy by Dr. Micheal Betancourt MD with a diagnosis of PD, LBP. Date of Evaluation: 12/12/21 Physical Therapist: AIDA Peterson - Visit Plan Frequency: 2x /Week Duration: 2 Months Plan: 2X/ week for 8 weeks for endurance, balance, gait (advancing R foot) and staying inside walker, stairs with 1 railing, curb steps, turning 180 degrees into chair or just turning, dual tasking, posture with HEP. HEP: concentrating on moving R foot with gait and turning 180 degrees to back up to chair for safety - Subjective Pt fell about 3 weeks ago and she went to the hospital due to a fall. and then she was transfered up to [place] because she had a subdural hematoma and had to have a neurosurgeon incase it got worse. They did another CT scan this morning and said that it looked good but said she could have problems for several weeks yet even though it looks good. She was in [place] and had their shopping cart and the cart went ahead of her cause she had nothing to stop here and she fell twice and she hit her head and had 4 stitches by her eye. She was in TCU for a week. There they thought she was doing very well. She feels that she is not doing nearly as well. At the hospital she did not feel she has PD so she is hoping to get her meds changed back to what she was on in the hospital. She is struggling with walking. She struggles standing due to balance. She started using the walk in the hospital. She has some trouble in and out of bed. Getting up out of a chair she feels that she does ok but her says she is going to fall. She says that it may take her a few times. She has steps with 2 railing to gets inside her home. She is going camping at the end of December and there are 4-5 steps to get up into the camper with 1 railing. She has not attempted to practice that yet. Getting in and out of a car is not too bad. Getting in and out of the truck is a little tougher due to the height of the truck. She has fallen since she got home and does not know what happened she was in the kitchen and then ended up on her butt and her back hit the handle of the drawer cause it really hurt. She does not drive and she is not home alone by herself. She has been on PD meds for a few weeks and does not think they were helping as much as what they were while in the hospital. She sees PCP this week (Micheal Betancourt). She sees Dr Menjivar but does not see him until Apr or May.... - Pain back pain Pain Intensity (Out of 10): 6 - Objective Gait: Walks with a front wheeled walker with arms outstretched and flexed trunk with decrease heel to toe gait pattern and shuffled gait. LE MMT: R hip flex 9.9# and L hip flex 11#. R knee ext 16.6# and L knee ext 20.7#. R knee flex 10.9# and L knee flex 12.2#. TU.61. FGA: 6. CATSIB 89. Posture: Rounded shoulders,. Sit to stand: needs UE to get out of the chair. Able to do it without arms but on second attempt and likes to fall BW into the chair. Turning 180 degrees, pt takes very small steps (even likes to step on own feet) and reaches for the wall or something to help her turn around. When sitting back into the chair she reaches for the chair and sits down with her feet tangled up. 4 square test: NT. Seated opp arm and leg X 10 on each side with no messing up. - Balance/Special Test Scores Functional Gait Assessment Score: 6 % Disability: 80.0000 CATSIB Score (Max score 120 seconds): 89 Lower Extremity Functional Score: 16 - Goals Goal 1:: I HEP Goal 2:: Be able to walk 150 feet feet with rolling walker with heel to toe gait pattern Goal Time Frame: 6-8 Weeks Goal 3:: Be able to walk back to the treatment room without getting fatigued and SOB Goal Time Frame: 6-8 Weeks Goal 4:: Be able the camper stairs with 1 hand rail with SBA of caregiver with ease Goal Time Frame: 6-8 Weeks Goal 5:: Be able to use walker to turn 180 degrees to sit down in the chair with back of legs touching the back of the chair. Goal Time Frame: 6-8 Weeks Goal 6:: Improve FGA score to decrease fall risk (at time of eval FGA score was 6). Goal Time Frame: 6-8 Weeks - Rehabilitation Potential Rehabilitation Potential: Good - Anticipated Interventions Patient/Client Instruction: Educate patient on: Condition, Plan of Care For the Purpose of:: To improve nutrient delivery to tissue, To increase oxygenation perfusion, To improve muscle performance and motor function, To improve ability to perform ADL's, To increase tolerance to activity/condition/position, To improve performance and independence with ADL's, To decrease level of supervision to perform tasks, To improve ability of physical actions for home/community/work/leisure, To improve gait and locomotor functions, To improve endurance, To improve balance, To improve safety with gait Therapeutic Exercise to Include: Strength training, Endurance training, Balance training, Body mechanics, Postural training, Flexibilty training, Gait and locomotor training, Neuromotor development, Dynamic Lumbar Stabilization For the Purpose of:: To decrease pain, To improve muscle performance and motor function, To improve ability to perform ADL's, To increase tolerance to activity/condition/position, To improve performance and independence with ADL's, To decrease level of supervision to perform tasks, To improve ability of physical actions for home/community/work/leisure, To improve gait and locomotor functions, To improve health of tissue, To decrease soft tissue restriction, To increase flexibility/ROM, To improve endurance, To improve balance, To improve safety with gait Functional Training to Include: Gait training For the Purpose of:: To improve gait and locomotor functions, To improve safety with gait Thank you for the opportunity to evaluate your patient. For Medicare and Medicare HMO plans, please review the plan of care and approve it. It will need to be FAXED BACK to us at [phone] for Medicare purposes. For Medicare only, by signing this I certify the plan of care. Please let me know if there are questions or concerns regarding this plan of care. Physician Signature: Date:
--- NOTE | 2021-12-12 16:35 | HP.OTEVAL_ITS ---
Patient's Visit Information RAMOS PADRON is a 76 year old F, referred to Occupational Therapy by Dr. Micheal Betancourt MD, with a diagnosis of OD, SDH, falls. Date of Evaluation: 12/12/21 Occupational Therapist: Jesi Garces, OTR/[place], CHT - Subjective This 76 year old female was seen for OT eval with dx of SDH and PD. pt states she was dx in 2021. pt states she noticed left UE weaker since her shoulder sx a left revers total shoulder replacement- pt states she than had PD dx and while shopping with a cart had a fall about 3 weeks. states her body gets ahead of her feet and she just can not stop- pt is right handed. pt states she is tired and fatigued as she just finished her PT evaluation. pt states her [place] nce and falls are more her concern at this time. - ADLs Comments: pt states she needs assistance with cleaning- and laundry driving. pt states she was driving prior to your fall and SDH. pt has walking in shower with use of shower chair-. pt has husbands help with washing her hair (due to a left shoulder sx in Mar. that did not recover well from). pt states she gets dressed GLORIA and pt states she feels this is about the same as Prior to fall. - ROM Shoulder: right WNL left limited due to sx in mar 2021 at 90* Elbow: right/left WNL - Strength Shoulder: shoulder flex right 10# left 9.5# shoulder ext R 13# L 13# Elbow: right 14# left 13# right triceps 16# left triceps 18# Founder [employer] Chief [employer] Officer: right 50# left 45# Lateral Pinch: right 8# left 8# Tripod Pinch: right 4# left 2# Strength Comments: pt demo with functional strength - Quick DASH-Disab of Arm,Shoulder& Hand Quick DASH Score: 6.8175 - Rehabilitation General Assessment: Pt ambulating with WW with shuffled gait patter cues to may with ambulation- pt is demo with limited left shoulder ROM from sx in Mar. this limits washing her hair- is helping- Pt advised OT could continue with therapy to increase bilateral strength but pt declined at this time and will work with Physical Therapy 2x week for 60 min. Therapist spoke with PT they will incorporate UB as pt declined OT services. - Visit Plan TEXT: Thank you for the opportunity to evaluate your patient. For Medicare and Medicare HMO plans, please review the plan of care and approve it. It will need to be FAXED BACK to us at [phone] for Medicare purposes. Please let me know if there are questions or concerns regarding this plan of care. Physician Signature: Date:
--- NOTE | 2021-12-27 15:55 | HP.PTEVAL_ITS ---
Patient's Visit Information RAMOS PADRON is a 76 year old F referred to Physical Therapy by Dr. Micheal Betancourt MD with a diagnosis of PD, LBP. Date of Evaluation: 12/12/21 Physical Therapist: AIDA Peterson - Visit Plan Frequency: 2x /Week Duration: 2 Months Plan: HOLD CHART. PT has appt scheduled for 1 month from now when back in town. 2X/ week for 8 weeks for endurance, balance, gait (advancing R foot) and staying inside walker, stairs with 1 railing, curb steps, turning 180 degrees into chair or just turning, dual tasking, posture with HEP. HEP: concentrating on moving R foot with gait and turning 180 degrees to back up to chair for safety - Subjective Pt fell about 3 weeks ago and she went to the hospital due to a fall. and then she was transfered up to [place] because she had a subdural hematoma and had to have a neurosurgeon incase it got worse. They did another CT scan this morning and said that it looked good but said she could have problems for several weeks yet even though it looks good. She was in [place] and had their shopping cart and the cart went ahead of her cause she had nothing to stop here and she fell twice and she hit her head and had 4 stitches by her eye. She was in TCU for a week. There they thought she was doing very well. She feels that she is not doing nearly as well. At the hospital she did not feel she has PD so she is hoping to get her meds changed back to what she was on in the hospital. She is struggling with walking. She struggles standing due to balance. She started using the walk in the hospital. She has some trouble in and out of bed. Getting up out of a chair she feels that she does ok but her says she is going to fall. She says that it may take her a few times. She has steps with 2 railing to gets inside her home. She is going camping at the end of December and there are 4-5 steps to get up into the camper with 1 railing. She has not attempted to practice that yet. Getting in and out of a car is not too bad. Getting in and out of the truck is a little tougher due to the height of the truck. She has fallen since she got home and does not know what happened she was in the kitchen and then ended up on her butt and her back hit the handle of the drawer cause it really hurt. She does not drive and she is not home alone by herself. She has been on PD meds for a few weeks and does not think they were helping as much as what they were while in the hospital. She sees PCP this week (Micheal Betancourt). She sees Dr Menjivar but does not see him until Apr or May.... - Pain back pain Pain Intensity (Out of 10): 5 - Objective Gait: Walks with a front wheeled walker with arms outstretched and flexed trunk with decrease heel to toe gait pattern and shuffled gait. LE MMT: R hip flex 9.9# and L hip flex 11#. R knee ext 16.6# and L knee ext 20.7#. R knee flex 10.9# and L knee flex 12.2#. TU.61. FGA: 6. CATSIB 89. Posture: Rounded shoulders,. Sit to stand: needs UE to get out of the chair. Able to do it without arms but on second attempt and likes to fall BW into the chair. Turning 180 degrees, pt takes very small steps (even likes to step on own feet) and reaches for the wall or something to help her turn around. When sitting back into the chair she reaches for the chair and sits down with her feet tangled up. 4 square test: NT. Seated opp arm and leg X 10 on each side with no messing up. - Balance/Special Test Scores Functional Gait Assessment Score: 6 % Disability: 80.0000 CATSIB Score (Max score 120 seconds): 89 Lower Extremity Functional Score: 31 - Goals Goal 1:: I HEP Goal 2:: Be able to walk 150 feet feet with rolling walker with heel to toe gait pattern Goal Time Frame: 6-8 Weeks Goal 3:: Be able to walk back to the treatment room without getting fatigued and SOB Goal Time Frame: 6-8 Weeks Goal 4:: Be able the camper stairs with 1 hand rail with SBA of caregiver with ease Goal Time Frame: 6-8 Weeks Goal 5:: Be able to use walker to turn 180 degrees to sit down in the chair with back of legs touching the back of the chair. Goal Time Frame: 6-8 Weeks Goal 6:: Improve FGA score to decrease fall risk (at time of eval FGA score was 6). Goal Time Frame: 6-8 Weeks - Rehabilitation Potential Rehabilitation Potential: Good - Anticipated Interventions Patient/Client Instruction: Educate patient on: Condition, Plan of Care For the Purpose of:: To improve nutrient delivery to tissue, To increase o xygenation perfusion, To improve muscle performance and motor function, To improve ability to perform ADL's, To increase tolerance to activity/condition/position, To improve performance and independence with ADL's, To decrease level of supervision to perform tasks, To improve ability of physical actions for home/community/work/leisure, To improve gait and locomotor functions, To improve endurance, To improve balance, To improve safety with gait Therapeutic Exercise to Include: Strength training, Endurance training, Balance training, Body mechanics, Postural training, Flexibilty training, Gait and locomotor training, Neuromotor development, Dynamic Lumbar Stabilization For the Purpose of:: To decrease pain, To improve muscle performance and motor function, To improve ability to perform ADL's, To increase tolerance to activity/condition/position, To improve performance and independence with ADL's, To decrease level of supervision to perform tasks, To improve ability of physical actions for home/community/work/leisure, To improve gait and locomotor functions, To improve health of tissue, To decrease soft tissue restriction, To increase flexibility/ROM, To improve endurance, To improve balance, To improve safety with gait Functional Training to Include: Gait training For the Purpose of:: To improve gait and locomotor functions, To improve safety with gait Thank you for the opportunity to evaluate your patient. For Medicare and Medicare HMO plans, please review the plan of care and approve it. It will need to be FAXED BACK to us at [phone] for Medicare purposes. For Medicare only, by signing this I certify the plan of care. Please let me know if there are questions or concerns regarding this plan of care. Physician Signature: Date:
--- NOTE | 2022-02-07 11:09 | HP.PTDCSUM ---
It has been my pleasure to treat RAMOS PADRON referred by Dr. Micheal Betancourt MD, with the diagnosis of PD, LBP for a total of 5 visit(s). Discharge Date: 02/07/22 Please see the following information for a summary of their discharge status. Subjective: Pt has left messages with her Dr about her fatigue and has not gotten any response. She is leaving to go out of town for a month and would like to be re checked to do more PT when she gets back. She feels that this has helped even though it has only been 4 visits. Pt reports that her back pain is a 06/06/09 back pain Pain Intensity (Out of 10): 5 % Improvement: 20 Objective/Function: When pt gets distracted or tired she stops advancing her R foot and she catches her R foot on the ground and therapist helps tactile and verbal to catch her and slow her down. Goal 1:: I HEP Goal 2:: Be able to walk 150 feet feet with rolling walker with heel to toe gait pattern Goal 3:: Be able to walk back to the treatment room without getting fatigued and SOB Goal 4:: Be able the camper stairs with 1 hand rail with SBA of caregiver with ease Goal 5:: Be able to use walker to turn 180 degrees to sit down in the chair with back of legs touching the back of the chair. Goal 6:: Improve FGA score to decrease fall risk (at time of eval FGA score was 6). Plan: HOLD CHART. PT has appt scheduled for 1 month from now when back in town. 2X/ week for 8 weeks for endurance, balance, gait (advancing R foot) and staying inside walker, stairs with 1 railing, curb steps, turning 180 degrees into chair or just turning, dual tasking, posture with HEP. HEP: concentrating on moving R foot with gait and turning 180 degrees to back up to chair for safety. UPDATE: Pt did not schedule additional PT. WILL DC PT Discharge Comments: DC PT If there are questions or concerns regarding this patient's physical therapy, please feel free to call me at [phone]. Thank you for the referral of this patient. Sincerely, Lilliana Donaldson, MPT Balance/Gait/Functional tests - Balance/Special Test Scores Functional Gait Assessment Score: 6 % Disability: 80.0000 CATSIB Score (Max score 120 seconds): 89 Lower Extremity Functional Score: 31
--- NOTE | 2022-02-19 11:12 | HP.PTDCSUM_ITS ---
It has been my pleasure to treat RAMOS PADRON referred by Dr. Micheal Betancourt MD, with the diagnosis of PD, LBP for a total of 6 visit(s). Discharge Date: 02/19/22 Please see the following information for a summary of their discharge status. Subjective: Pt did see a new neurologist and she is now taking 3 pills instead of 2 and she thinks that it is helping with her falling and her balance. She was falling all the time. She has fallen since she has been on the walker and it was falling FW when going to stand. The time that she fell the walker was not in front of her. Pt could not do her therapy while in [place] cause she had a plasma treatment and could not do anything for 6 weeks. She is able to do more plasma treatments when she wants too. Pt wants to continue therapy or go to PD class. Pt is able to get up into the camper with 1 handrail. She did fall in the narrow bathroom in the [facility] and she did not have her walker. back pain Pain Intensity (Out of 10): 5 % Improvement: 25 Objective/Function: FGA 7. Sit to stands: able to stand up easily with no UE support. Gait: pt likes to walk with the walker out in front of her and tends to drag her R foot and trips on it. Stairs: up and down recip with two hand rails without hesitation. coming down the steps...she undershot one of the steps but was able to correct her step. Discoordination with R LE Goal 1:: I HEP Goal Progress: Goal Met Goal 2:: Be able to walk 150 feet feet with rolling walker with heel to toe gait pattern Goal Progress: Progressing Goal 3:: Be able to walk back to the treatment room without getting fatigued and SOB Goal Progress: Goal Met Goal 4:: Be able the [facility] stairs with 1 hand rail with SBA of caregiver with ease Goal Progress: Goal Met Goal 5:: Be able to use walker to turn 180 degrees to sit down in the chair with back of legs touching the back of the chair. Goal Progress: Progressing Goal 6:: Improve FGA score to decrease fall risk (at time of eval FGA score was 6). Goal Progress: Progressing Plan: DC PT to PD classess. Pt is welcome to come back to PT if she feels that she needs additional PT with a new order. Discharge Comments: DC PT to PD class If there are questions or concerns regarding this patient's physical therapy, please feel free to call me at [phone]. Thank you for the referral of this patient. Sincerely, Lilliana Donaldson, MPT Balance/Gait/Functional tests - Balance/Special Test Scores Functional Gait Assessment Score: 7 % Disability: 76.6700 CATSIB Score (Max score 120 seconds): 89 Lower Extremity Functional Score: 25
--- NOTE | 2022-02-27 10:01 | HP.SP.DC_ITS ---
ST Discharge Summary - Discharged: Discharge: Jill Kim was discharged from [facility] speech therapy as of February. 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 Her goals focused on increasing vocal loudness for sustained phonation as well as during conversation. Sustained phonation stayed the same at 70 dB to 70.9 dB but conversational loudness increased from 62.5 dB to 69 dB. Her length of sustained phonation increased from 7 seconds to 9-10 seconds. Patient has adequate loudness in conversation and awareness to be louder in noisy environments. Initially she reported anomia but at the time of discharge she stated this is no longer a concern. Patient is discharged as she has met her goals/potential. Patient may return in the future as the nature of Parkinson?s disease is progressive. I will gladly continue with the patient at any time. Thank you for allowing me to participate in the care of this patient.
== END 2022-02-19 11:36 | disposition home or self-care (01) ==
LOC: PT 10:30
PROVIDERS: PCP Family Medicine; Referring Provider Family Medicine Geriatric Medicine; Visit Provider Family Medicine
DX: G20 Parkinson's disease (principal); R49.8 Other voice and resonance disorders; M54.50 Low back pain, unspecified; R29.6 Repeated falls; S06.5XAD Traumatic subdural hemorrhage with loss of consciousness status unknown, subsequent encounter; W19.XXXD Unspecified fall, subsequent encounter
CPT/HCPCS: 92507; 92524; 97110; 97161; 97166; 97530

== ENCOUNTER 2022-03-22 09:44 | Outpatient (RCR) | payer MEDICARE, OTHER, SELFPAY ==
--- NOTE | 2022-03-22 10:20 | HP.PT.NRP ---
RAMOS PADRON was seen in my office for initial evaluation on . The following Plan of Care was established for this patient: This patient was last seen in our office 03/22/22. Pertinent comments regarding their Physical therapy will appear below: PATIENT ARRIVED FOR PT JABARI WITH ORDER FOR AQUATIC THERAPY FOR HER R HIP. SHE STATES SHE DOES NOT WANT TO TRY AQUATIC THERAPY AT THIS TIME. SHE REPORTS SHE HAS A BACK INJECTION PENDING WITH DR. HENDRICKSON SOON AND IF HER BACK STARTS TO FEEL BETTER SHE MIGHT TRY THE AQUATIC THERAPY THEN. PATIENT TO CONTACT US IF SHE WANTS TO TRY AQUATIC THERAPY. At this point I will be discontinuing this patient from physical therapy. I would be happy to see this patient again in the future if found appropriate by the physician. Thank you! Myla Benavides, PT, Cert MDT
== END 2022-03-22 10:31 | disposition home or self-care (01) ==
LOC: PT 09:44
PROVIDERS: PCP Family Medicine; Referring Provider Orthopaedic Surgery; Visit Provider Orthopaedic Surgery
DX: M16.11 Unilateral primary osteoarthritis, right hip (principal)

== ENCOUNTER 2022-05-21 09:58 | Emergency (ER) | payer MEDICARE, OTHER, SELFPAY ==
[2022-05-21 09:59] VITALS: BP 141/78; PULSE 86; RESP 16; TEMP 36.2; O2SAT 98; BMI 27.8
--- NOTE | 2022-05-21 10:25 | CT_ITS ---
STUDY: CT LUMBAR SPINE WITHOUT CONTRAST REASON FOR EXAM: Female, 76 years old. Low back pain following a recent fall. History of uterine carcinoma. RADIATION DOSAGE (If Supplied By Facility): CTDIvol = ( 13.92 ) mGy, DLP = ( 419.63 ) mGycm TECHNIQUE: The patient was scanned in a multi detector CT scanner. High resolution transaxial imaging was performed. Images were obtained from to . Sagittal and coronal images were reconstructed. Individualized dose optimization techniques were used for this CT. COMPARISON: None FINDINGS: There is straightening of the normal lumbar lordosis. There is no substantial scoliosis. Multilevel spondylosis. L1-2: Mild degree of disc space narrowing. Anterior spondylosis. Minimal degree of loss of height of the superior endplate of the L2 vertebrae. L2-3: Mild degree of disc space narrowing. Spondylosis. Mild degree of the loss of height of the superior endplate of the L2 vertebrae. L3-4: Spondylosis. Minimal disc space narrowing. Mild degree of bilateral neural foraminal stenosis due to the hypertrophy of the facet joints and diffuse posterior disc bulge. L4-5: Moderate degree of disc space narrowing. Spondylosis. Mild degree of diffuse posterior disc bulge. L5-S1: Moderate degree of disc space narrowing and spondylosis. Atherosclerotic plaque formation of the abdominal aorta. CT/Spine Lumbar without Contrast IMPRESSION: Multilevel degenerative changes, as described above. Minimal degree of the loss of height of the superior endplate of the L2 vertebrae with evidence of a Schmorl''s node. Electronically Signed: Max Olsen MD at 11:15 EDT ,
--- NOTE | 2022-05-21 10:26 | ED.VIS.BACK ---
HPI History of Present Illness Chief Complaint: Back Narrative Narrative: 76-year-old female past medical history of Parkinson disease, presents with injury to her back, low back that she sustained approximately 10 days ago. She states that she was vacationing in [place], and someone had called out to her. She turned around to see who it was, and she fell onto her low back onto concrete. She states that she has been nursing herself back to health, taking Tylenol, and putting Biofreeze on the area. She has pain in the middle of her low back and more towards the right. She states that her symptoms were beginning to improve, but on the car ride home, she started having increasing pain in a seated position. She denies other injury, but now states she is having pain in the middle of her low back. She presents for evaluation of this pain. She denies any fevers or chills. No nausea or vomiting. No radiation of pain down her leg, no saddle anesthesia, no loss of bowel or bladder. [facility] Medical History (Updated 05/21/22 @ 12:18 by Home Segura MD) Abnormal bruising Acute bronchitis, unspecified Back pain Carpal tunnel syndrome Difficulty balancing Encounter for screening for malignant neoplasm of lung in former smoker who quit in past 15 years with 30 pack year history or greater Endometrial cancer Fatigue High cholesterol History of tobacco use Hypertension Migraines Parkinson disease Shoulder pain URI (upper respiratory infection) Uterine cancer Home Medications carbidopa 25 mg-levodopa 100 mg tablet 1 tab PO BID parkisons 11/22/21 [History Last Taken Unknown] acetaminophen 500 mg tablet 1,000 mg PO Q6H PRN PRN Pain Score 1-10 #0 tabs 11/29/21 [Rx Last Taken Unknown] carboxymethylcellulose sodium 1 % eye gel in a dropperette (TheraTears) 1 ea EACH EYE Q1H PRN DRY EYES #0 ea 11/29/21 [Rx Last Taken Unknown] cholecalciferol (vitamin D3) 50 mcg (2,000 unit) capsule (D3-2000) 50 mcg PO DAILY 03/16/22 [History Last Taken Unknown] coenzyme [id number] E 100 mg-100 unit capsule cap PO 03/16/22 [History Last Taken Unknown] Allergy/AdvReac Type Severity Reaction Status Date / Time No Known Allergies Allergy Verified 05/21/22 09:58 Family History Mother CVA (cerebral vascular accident) Hypertension Arthritis Heart disease Father Cancer Skin cancer Sister CVA (cerebral vascular accident) Hypertension Brother Hypertension CVA (cerebral vascular accident) Surgical History H/O: hysterectomy History of hip surgery History of left hip replacement History of left shoulder replacement Social History household members: spouse housing: house Smoking Status: Former smoker quit date: 01/02/15 pack-years: 40 Tobacco: How many years used: 40 Electronic Cigarette Use: not used second hand exposure: Yes quit status: has quit before counseling given: provider counseling alcohol intake: never what type of physical activity do you participate in: walking and other details: golf do you feel safe at home: Yes ROS ROS ED ROS Narrative Constitutional: No fever, no chills. HEENT: No sore throat. No neck pain. No loss of vision. No rhinorrhea. Cardiovascular: No chest pain. No palpitations. No pedal edema. Respiratory: No cough, no shortness of breath. Abdominal: No abdominal pain. No nausea. No vomiting. Genitourinary: No dysuria. No hematuria. Musculoskeletal: No myalgias. No arthralgias. Positive low back pain, midline to right-sided. Neurologic: No headaches. No dizziness. No lightheadedness. Skin: No rash. No change in color. Psychiatric: No depression. No anxiety. EXAM Physical Exam Narrative Exam Narrative: Afebrile. Vital signs noted. HEENT: Normocephalic. Atraumatic. PERRL, EOMI. Neck soft and supple. No point tenderness or step off. Cardiovascular: Regular rate and rhythm. No murmurs, rubs, or gallops appreciated. Respiratory: No tachypnea. Lungs clear to auscultation bilaterally. Gastrointestinal: Abdomen soft, nontender, with normoactive bowel sounds. No rebound or guarding. Neurological: Awake. Alert. Nonfocal, nonlateralizing. Straight leg raising negative bilaterally. Full range of motion of hip and joints bilateral lower extremities. DTR, patellar, equal and symmetric. Skin: No rash. Normal color. No pallor. Musculoskeletal: No pedal edema. Full range of motion extremities. Mild tenderness palpation diffusely midline low back, no step-off. Const Vital Signs: 05/21/22 09:59 Temperature 97.1 F L Temperature Source Temporal Pulse Rate 86 Respiratory Rate 16 Blood Pressure 141/78 H Blood Pressure Mean 99 Pulse Ox 98 Oxygen Delivery Method Room Air MDM MDM MDM Narrative Medical decision making narrative: Patient has been taking Tylenol initially. She was given 1 oxycodone 5 mg tablet here for analgesia. I do feel that CT imaging of her lumbar spine would be more beneficial than x-rays/plain films given the nature of her trauma, and her osteopenia. I reviewed her CT imaging. I also reviewed the radiology report which shows no evidence of an acute fracture. There is multilevel degenerative changes. I do feel that she could be discharged safely home. She states that she will take Tylenol for analgesia and follow-up with her primary care provider. Return instructions to the emergency department were reviewed. She will continue to use her walker for ambulation. Disposition is discharged home in stable condition. Radiography Diagnostic Testing: Clinical Impression(s) from Imaging Studies Lumbar Spine CT 05/21/22 10:25 IMPRESSION: Multilevel degenerative changes, as described above. Minimal degree of the loss of height of the superior endplate of the L2 vertebrae with evidence of a Schmorl''s node. Electronically Signed: Max Olsen MD at 11:15 EDT , Discharge Plan Triage Chief Complaint: Back ED Provider: Home Segura Dx/Rx/DC Orders Clinical Impression: Fall, Low back pain, Lumbar contusion Instructions: ED Back Pain (Acute or Chronic), ED Back Contusion, ED Mechanical Fall Prescriptions: No Action coenzyme [id number] E 100-100 mg-unit capsule PO cholecalciferol (vitamin D3) [D3-2000] 50 mcg (2,000 unit) capsule 50 mcg PO DAILY carbidopa-levodopa 25-100 mg tablet 1 tab PO BID acetaminophen 500 mg Tablet 1,000 mg PO Q6H PRN PRN (Reason: Pain Score 1-10) Qty: 0 0RF carboxymethylcellulose sodium [TheraTears] 1 % Dropperette,Gel 1 ea EACH EYE Q1H PRN (Reason: DRY EYES) Qty: 0 0RF Primary Care Provider: Care Physician,No Primary Referrals: Care Physician,No Primary [Primary Care Provider] - Activity Restrictions/Additional Instructions: Follow-up with your primary care physician as soon as possible. Continue your Tylenol as needed for pain. Disposition Disposition: Home, Self Care
[2022-05-21] MEDS: oxyCODONE 5 MG Tablet PO (10:29)
== END 2022-05-21 12:24 | disposition home or self-care (01) ==
PROVIDERS: Emergency Provider Emergency Medicine; Visit Provider Emergency Medicine
DX: S30.0XXA Contusion of lower back and pelvis, initial encounter (principal); E78.00 Pure hypercholesterolemia, unspecified; Z87.891 Personal history of nicotine dependence; I10 Essential (primary) hypertension; W19.XXXA Unspecified fall, initial encounter
CPT/HCPCS: 72131; 99283

== ENCOUNTER → 2022-05-25 | Outpatient (CLI) | payer MEDICARE, OTHER, SELFPAY ==
--- NOTE | 2022-05-25 10:53 | RAD_ITS ---
INDICATION: FALL/ INJURY EXAMINATION/TECHNIQUE: X-RAY - XR Sacrum/Coccyx Min 2 Views COMPARISON: 03/19/2022. FINDINGS: No acute fracture or dislocation. No visualized periprosthetic fracture. Moderate osteoarthrosis of the right hip with marked joint space narrowing superiorly and subchondral cyst formation. Degenerative changes of the lumbosacral spine. Normal alignment. Soft tissues are unremarkable. No radiopaque foreign body or soft tissue gas. RAD/Sacrum-Coccyx min 2 Views IMPRESSION: No acute findings. Osteoarthrosis of the right hip. Electronically Signed: Gretchen Fuentes MD at 18:16 EDT Reading Location ID and State: [id number] / Tel , Service support ,
== END | disposition home or self-care (01) ==
LOC: MTRAD 10:51
PROVIDERS: Referring Provider Anesthesiology Pain Medicine; Visit Provider Anesthesiology Pain Medicine
DX: M16.11 Unilateral primary osteoarthritis, right hip (principal)
CPT/HCPCS: 72220

== ENCOUNTER → 2022-07-24 | Outpatient (CLI) | payer MEDICARE, OTHER, SELFPAY ==
[2022-07-24 18:09] LABS: Absolute Lymphocyte Count 3.01 X10^3/uL (0.83-4.51); Absolute Neutrophil Count 4.3 X10^3/uL (2.0-7.7); Basophil# 0.05 X10^3/uL; Basophil% 0.6 % (0-1); Eosinophil# 0.07 X10^3/uL; Eosinophils% 0.9 % (0-5); Hematocrit 47.3 % (37-47); Hemoglobin 15.6 g/dL (12.0-15.0); Lymphocyte # 3.01 X10^3/ul (0.83-4.51); Lymphocyte % 36.7 % (19-41); Mean Corpuscular Hgb 31.1 pg (27.0-32.0); Mean Corpuscular Volume 94.2 fL (81-99); Mean Platelet Vol. 9.9 fl (6.2-12.0); Monocyte% 8.5 % (0-10); NRBC Flagged by Analyzer 0 % (0-5); Neutrophil # 4.34 X10^3/uL (2.7-7.7); Neutrophil % 52.9 % (47-70); Platelet Count 338 K/mm3 (150-450); RBC Distribution Width CV 13.2 % (11.6-14.6); RBC Distribution Width SD 45.8 fl (35.1-43.9); Red Blood Count 5.02 M/mm3 (4.2-5.4); White Blood Count 8.2 K/mm3 (4.4-11.0)
[2022-07-24 18:28] LABS: Vitamin B12 513 pg/mL (211-911)
[2022-07-24 18:31] LABS: ALB/GLOB Ratio 0.9 RATIO (0.9-2.4); AST(SGOT) 14 U/L (15-37); Alanine Aminotransfer ALT/SGPT 18 U/L (13-56); Albumin, Serum 3.7 g/dL (3.2-5.0); Alkaline Phosphatase 74 U/L (45-117); Anion Gap 5 (5-15); BUN 16 mg/dL (7-18); BUN/Creat Ratio 18.8 RATIO (10-20); Calcium,Total 9.4 mg/dL (8.5-10.1); Chloride 106 mmol/L (98-107); Cholesterol 203 mg/dL (200); Creatinine, Serum 0.85 mg/dL (0.55-1.02); EST Glomerular Filtration Rate 69 mL/min (>60); Est Glom Filt Rate - Afr Amer 83 mL/min (>60); Globulin 4.1 g/dL (2.2-4.2); Glucose 92 mg/dL (74-106); High Density Lipoprotein 64 mg/dL; Protein, Total 7.8 g/dL (6.4-8.2); Sodium Level 138 mmol/L (136-145); Thyroid Stim Hormone (TSH) 1.23 uIU/mL (0.358-3.74); Triglycerides 197 mg/dL; Very Low Density Lipoprotein 39 mg/dL (5-40)
== END | disposition home or self-care (01) ==
LOC: MFPLAB 15:52
PROVIDERS: PCP Family Medicine; Visit Provider Family Medicine
DX: E78.5 Hyperlipidemia, unspecified (principal); M79.10 Myalgia, unspecified site
CPT/HCPCS: 36415; 80053; 80061; 82607; 84443; 85025

== ENCOUNTER 2022-08-08 15:30 | Outpatient (RCR) | payer MEDICARE, OTHER, SELFPAY ==
--- NOTE | 2022-04-02 09:25 | HP.PTEVAL_ITS ---
Patient's Visit Information RAMOS PADRON is a 76 year old F referred to Physical Therapy by ECHO Hi with a diagnosis of PD. Date of Evaluation: 04/02/22 Physical Therapist: AIDA Peterson - Visit Plan Frequency: 2x /Week Duration: 2 Months Plan: Pt falls everyday at home!!!!! Assess for possible AFO on the R. At times she trips on her R foot but other times she has that small fesination of gait B? 2X/ week for 8 weeks (per pt request as she does PD class on [facility]) for stretching of B gastroc and increase strength of DF (especially the R), gait training with bigger stride and more upright posture, balance training, transfer training, LE strengthening, endurance, stairs with HEP. HEP: seated heel and toe raises and gastroc towel stretch twice a day at home - Subjective Pt has been falling everyday for the last 3 weeks and it does not matter what direction she falls in. No dizziness. She feels that her legs are weak anytime that she is standing. She had a had a brain bleed in Nov-Dec. She struggle to get out of a chair. She is a rolling walker all the time. She got new glasses in Jan and feels that her vision is good. She does not get any light headedness. She has no SOB. She does stairs at home (5 steps into the house with 2 railings and it depends if she goes 2 feet to a stair or recip). She is always tired. She has pain in her legs and knees. She only sleeps till 3 am and then she is wide awake. She falls asleep at 10pm. No naps during the day. - Pain Leg pain B Pain Intensity (Out of 10): 4 - Objective Gait: walks with a rolling walker with decrease stride length on the R. She walks with a flexed trunk pushing down on the walker. She catches her R foot with gait. Other times she has small steppage gait with no heel to toe gait pattern (prob worse on the R compared to the L). Pt tends to not take as big of steps also when she is moving to fast... her feet do not catch up to her upper body and the walker. Sit to stand: Gets up using B UE on the chair rail and still falls back to the chair and able to get up to walker on second attempt. LE MMT: R hip flex 12.8 and L hip flex 10.4. R knee ext 16.6 and L knee ext 19.3. R knee flex 10.2 and L knee flex 9.1. Patella DTR 2+/3 B. CATSIB 105. FGA 9. Stairs: up and down stairs recip with 1 hand rail. TUG 24:32 seconds - Balance/Special Test Scores Functional Gait Assessment Score: 9 % Disability: 70.0000 CATSIB Score (Max score 120 seconds): 105 Lower Extremity Functional Score: 16 - Goals Goal 1:: I HEP Goal Time Frame: 6-8 Weeks Goal 2:: Decrease falls at home to 1 X/ week instead of daily Goal Time Frame: 6-8 Weeks Goal 3:: Walk with better gait pattern and more inside walker with heel to toe pattern and not catching her R foot back to the treatment rooms Goal Time Frame: 6-8 Weeks Goal 4:: Be able to sit to stand X 10 on first attempt without retro LOB Goal Time Frame: 6-8 Weeks Goal 5:: Decrease fall risk by increasing FGA score (score of 9 at eval). Goal Time Frame: 6-8 Weeks - Rehabilitation Potential Rehabilitation Potential: Good - Anticipated Interventions Patient/Client Instruction: Educate patient on: Condition, Plan of Care For the Purpose of:: To increase ROM, To improve nutrient delivery to tissue, To improve muscle performance and motor function, To improve ability to perform ADL's, To increase tolerance to activity/condition/position, To improve performance and independence with ADL's, To decrease level of supervision to perform tasks, To improve ability of physical actions for home/community/work/leisure, To improve gait and locomotor functions, To improve health of tissue, To decrease soft tissue restriction, To increase flexibility/ROM, To improve endurance, To improve balance, To improve safety with gait, To assume or resume ADL's, To reduce risk of recurrence, To improve safety Therapeutic Exercise to Include: Strength training, Endurance training, Balance training, Coordination, Body mechanics, Postural training, Flexibilty training, Gait and locomotor training, Neuromotor development, Passive ROM, Active ROM, Dynamic Lumbar Stabilization For the Purpose of:: To increase ROM, To improve nutrient delivery to tissue, To increase oxygenation perfusion, To improve muscle performance and motor function, To improve ability to perform ADL's, To increase tolerance to activity/condition/position, To improve performance and independence with ADL's, To decrease level of supervision to perform tasks, To improve ability of physical actions for home/community/work/leisure, To improve gait and locomotor functions, To improve health of tissue, To decrease soft tissue restriction, To increase flexibility/ROM, To improve endurance, To improve balance, To improve safety with gait, To assume or resume ADL's, To improve safety Functional Training to Include: Gait training For the Purpose of:: To improve gait and locomotor functions, To improve safety with gait Manual Therapy Techniques to Include: Passive ROM For the Purpose of:: To increase ROM, To decrease soft tissue restriction, To increase flexibility/ROM Thank you for the opportunity to evaluate your patient. For Medicare and Medicare HMO plans, please review the plan of care and approve it. It will need to be FAXED BACK to us at [phone] for Medicare purposes. For Medicare only, by signing this I certify the plan of care. Please let me know if there are questions or concerns regarding this plan of care. Physician Signature: Date:
--- NOTE | 2022-04-30 11:25 | HP.PTREVAL_ITS ---
ECHO Hi, It has been my pleasure to treat RAMOS PADRON over the last 9 visits for PD. Please see the progress note below for an update on the physical therapy plan of care! Subjective: Pt is leaving for a month to go to [place]. She is tired today. Pt thought she was doing ok but today she cant get with it as far as everything and she is just tired. She has not fallen in a month or so. Pt is getting a plasma shot in her hip this and then she can not do any physical activity for 6 weeks. Objective/Function: sit to stand X 10 without LOB. FGA 9. 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 She has her husbands walker at home and might try that one. Plan Plan: HOLD CHART FOR 6 weeks until after hip injection and trip. Will need reassessment then and new LEFS. New GOALS will have to be set as well. Balance/Gait/Functional tests - Balance/Special Test Scores Functional Gait Assessment Score: 9 % Disability: 70.0000 CATSIB Score (Max score 120 seconds): 105 Lower Extremity Functional Score: 28 Goals Goal 1:: I HEP Goal Time Frame: 6-8 Weeks Goal 2:: Decrease falls at home to 1 X/ week instead of daily Goal Time Frame: 6-8 Weeks Goal Progress: Goal Met Goal 3:: Walk with better gait pattern and more inside walker with heel to toe pattern and not catching her R foot back to the treatment rooms Goal Time Frame: 6-8 Weeks Goal 4:: Be able to sit to stand X 10 on first attempt without retro LOB Goal Time Frame: 6-8 Weeks Goal Progress: Goal Met Goal 5:: Decrease fall risk by increasing FGA score (score of 9 at eval). Goal Time Frame: 6-8 Weeks Anticipated Interventions Patient/Client Instruction: Educate patient on: Condition, Plan of Care For the Purpose of:: To increase ROM, To improve nutrient delivery to tissue, To improve muscle performance and motor function, To improve ability to perform ADL's, To increase tolerance to activity/condition/position, To improve performance and independence with ADL's, To decrease level of supervision to perform tasks, To improve ability of physical actions for home/community/work/leisure, To improve gait and locomotor functions, To improve health of tissue, To decrease soft tissue restriction, To increase flexibility/ROM, To improve endurance, To improve balance, To improve safety with gait, To assume or resume ADL's, To reduce risk of recurrence, To improve safety Therapeutic Exercise to Include: Strength training, Endurance training, Balance training, Coordination, Body mechanics, Postural training, Flexibilty training, Gait and locomotor training, Neuromotor development, Passive ROM, Active ROM, Dynamic Lumbar Stabilization For the Purpose of:: To increase ROM, To improve nutrient delivery to tissue, To increase oxygenation perfusion, To improve muscle performance and motor function, To improve ability to perform ADL's, To increase tolerance to activity/condition/position, To improve performance and independence with ADL's, To decrease level of supervision to perform tasks, To improve ability of physical actions for home/community/work/leisure, To improve gait and locomotor functions, To improve health of tissue, To decrease soft tissue restriction, To increase flexibility/ROM, To improve endurance, To improve balance, To improve safety with gait, To assume or resume ADL's, To improve safety Functional Training to Include: Gait training For the Purpose of:: To improve gait and locomotor functions, To improve safety with gait Manual Therapy Techniques to Include: Passive ROM For the Purpose of:: To increase ROM, To decrease soft tissue restriction, To increase flexibility/ROM Please do not hesitate to contact me at [phone] by phone or if you have questions or concerns regarding this new plan of care! Sincerely, AIDA Peterson
--- NOTE | 2022-06-25 10:29 | HP.PTREVAL_ITS ---
ECHO Hi, It has been my pleasure to treat RAMOS PADRON over the last 10 visits for PD. Please see the progress note below for an update on the physical therapy plan of care! Subjective: She was on vacation for a month and was not allowed to exercise for a month because she had the plasma injection. She feels that she has gotten worse. She falls daily. She uses her walker all the time. Her walker is always going to the right and she falls to the L. She does not think that the plasma injection helped and she won't do it again. Neurologist appt is at then end of September (Rosalba Grullon). PCP appt is at then end of July. Objective/Function: Impulsive with her actions and moves before therapist gets the instructions out. Pt not able to see out of her R eye on the periphery. She could not see me holding up 2 fingers on her R periphery than her L. If I stood on her R side and had her turn her head (which was very little) she did not run into anything on the R side while walking and the walker did not veer that way either. Pt likes to move very fast to turn 180 degrees and gets feet tangled everytime. Pt walker veers to the R and then she gets frustrated and picks up the walker and moves it to the L and she has told me that she is falling to the L most of the time. FGA:7. DGI: 13. sit to stand X 10 but needs UE support to get up and steady self. gait: walks with with a wheeled walker with veering to the R side due to neglect and runs into things on the R side. She does not move her head with gait. She turns 180 degrees very fast and is unsteady. LE MMT: R hip flex 8.3 and L 7.8. R knee ext 14.8 and L 13.7. R knee flex 12.5 and L 9.7. UE MMT: shoulder flex R9.4 and L 9 flex. R11 and L12.3 IR. R 10.6 and L 7.5 ER Plan Plan: 2X/ week for 6-8 weeks for SLOW controlled balance and gait. Focus on learning to scan to the R with gait with the rolling walker. due to R sided neglect?? Work on slow controlled turns. Work on impulsivity and balance and reactions, dual tasking, gait training, functional transfers dynamic balance etc. Pt to see eye Dr about R sided loss of peripheral vision Balance/Gait/Functional tests - Balance/Special Test Scores Functional Gait Assessment Score: 7 % Disability: 76.6700 CATSIB Score (Max score 120 seconds): 105 Tinetti Balance Score: 10 Tinetti Gait Score: 3 Tinetti Balance & Gait Score: 13 Lower Extremity Functional Score: 21 Goals Goal 1:: I HEP Goal Time Frame: 6-8 Weeks Goal 2:: Decrease falls at home to 1 X/ week instead of daily Goal Time Frame: 6-8 Weeks Goal Progress: Goal Met Goal 3:: Walk with better gait pattern and more inside walker with heel to toe pattern and not catching her R foot back to the treatment rooms Goal Time Frame: 6-8 Weeks Goal 4:: Be able to sit to stand X 10 on first attempt without retro LOB Goal Time Frame: 6-8 Weeks Goal Progress: Goal Met Goal 5:: Decrease fall risk by increasing FGA score (score of 7 at Re-eval). Goal Time Frame: 6-8 Weeks Goal 6:: Be able to walk back to the treatment rooms without hitting things on her Right side with her walker. Goal Time Frame: 6-8 Weeks Anticipated Interventions Patient/Client Instruction: Educate patient on: Condition, Plan of Care For the Purpose of:: To increase ROM, To improve nutrient delivery to tissue, To improve muscle performance and motor function, To improve ability to perform ADL's, To increase tolerance to activity/condition/position, To improve performance and independence with ADL's, To decrease level of supervision to perform tasks, To improve ability of physical actions for home/community/work/leisure, To improve gait and locomotor functions, To improve health of tissue, To decrease soft tissue restriction, To increase flexibility/ROM, To improve endurance, To improve balance, To improve safety with gait, To assume or resume ADL's, To reduce risk of recurrence, To improve safety Therapeutic Exercise to Include: Strength training, Endurance training, Balance training, Coordination, Body mechanics, Postural training, Flexibilty training, Gait and locomotor training, Neuromotor development, Passive ROM, Active ROM, Dynamic Lumbar Stabilization For the Purpose of:: To increase ROM, To improve nutrient delivery to tissue, To increase oxygenation perfusion, To improve muscle performance and motor function, To improve ability to perform ADL's, To increase tolerance to acti vity/condition/position, To improve performance and independence with ADL's, To decrease level of supervision to perform tasks, To improve ability of physical actions for home/community/work/leisure, To improve gait and locomotor functions, To improve health of tissue, To decrease soft tissue restriction, To increase flexibility/ROM, To improve endurance, To improve balance, To improve safety with gait, To assume or resume ADL's, To improve safety Functional Training to Include: Gait training For the Purpose of:: To improve gait and locomotor functions, To improve safety with gait Manual Therapy Techniques to Include: Passive ROM For the Purpose of:: To increase ROM, To decrease soft tissue restriction, To increase flexibility/ROM Please do not hesitate to contact me at [phone] by phone or if you have questions or concerns regarding this new plan of care! Sincerely, Lilliana Donaldson MPT
--- NOTE | 2022-08-08 18:13 | HP.PTREVAL_ITS ---
ECHO Hi, It has been my pleasure to treat RAMOS PADRON over the last 20 visits for PD. Please see the progress note below for an update on the physical therapy plan of care! Subjective: Her brain scan is on Saturday. Pt feels that she is not as tired. She feels that sometimes her walking is better. Still falling once a week. She feels that she can not slow herself down once she starts to go. She does get dizzy when she turns too fast. feels that when she fell 9 months ago and had a brain bleed no one looked into a head scan and feels that she has been worse since then. Objective/Function: FGA 7. pt got dizzy turning 180 degrees several times in a row at a slower pace. She does get feet tangled up with turning 180 degrees. CATSIB 102 (EC on foam is issue). Pt is able to control her walking FW and BW for a short distance with no AD and CGA but then starts to move faster and can not slow it down. Plan Plan: Hold chart until after brain scan and meet with the Dr. Potential change of plan to include habituation turning 180 degrees due to increase in dizziness, R sided neglect, turning 180 degrees to product picker feet and SLOW down movements with gait Balance/Gait/Functional tests - Balance/Special Test Scores Functional Gait Assessment Score: 7 % Disability: 76.6700 CATSIB Score (Max score 120 seconds): 102 Tinetti Balance Score: 10 Tinetti Gait Score: 3 Tinetti Balance & Gait Score: 13 Lower Extremity Functional Score: 40 Goals Goal 1:: I HEP Goal Time Frame: 6-8 Weeks Goal 2:: Decrease falls at home to 1 X/ week instead of daily Goal Time Frame: 6-8 Weeks Goal Progress: Goal Met Goal 3:: Walk with better gait pattern and more inside walker with heel to toe pattern and not catching her R foot back to the treatment rooms or veering to the R side Goal Time Frame: 6-8 Weeks Goal Progress: Not Progressing Goal 4:: Be able to sit to stand X 10 on first attempt without retro LOB Goal Time Frame: 6-8 Weeks Goal Progress: Goal Met Goal 5:: Decrease fall risk by increasing FGA score (score of 7 at Re-eval). Goal Time Frame: 6-8 Weeks Goal Progress: Not Progressing Goal 6:: Be able to walk back to the treatment rooms without hitting things on her Right side with her walker. Goal Time Frame: 6-8 Weeks Goal Progress: Progressing Anticipated Interventions Patient/Client Instruction: Educate patient on: Condition, Plan of Care For the Purpose of:: To increase ROM, To improve nutrient delivery to tissue, To improve muscle performance and motor function, To improve ability to perform ADL's, To increase tolerance to activity/condition/position, To improve performance and independence with ADL's, To decrease level of supervision to perform tasks, To improve ability of physical actions for home/community/work/leisure, To improve gait and locomotor functions, To improve health of tissue, To decrease soft tissue restriction, To increase flexibility/ROM, To improve endurance, To improve balance, To improve safety with gait, To assume or resume ADL's, To reduce risk of recurrence, To improve safety Therapeutic Exercise to Include: Strength training, Endurance training, Balance training, Coordination, Body mechanics, Postural training, Flexibilty training, Gait and locomotor training, Neuromotor development, Passive ROM, Active ROM, Dynamic Lumbar Stabilization For the Purpose of:: To increase ROM, To improve nutrient delivery to tissue, To increase oxygenation perfusion, To improve muscle performance and motor function, To improve ability to perform ADL's, To increase tolerance to activity/condition/position, To improve performance and independence with ADL's, To decrease level of supervision to perform tasks, To improve ability of physical actions for home/community/work/leisure, To improve gait and locomotor functions, To improve health of tissue, To decrease soft tissue restriction, To increase flexibility/ROM, To improve endurance, To improve balance, To improve safety with gait, To assume or resume ADL's, To improve safety Functional Training to Include: Gait training For the Purpose of:: To improve gait and locomotor functions, To improve safety with gait Manual Therapy Techniques to Include: Passive ROM For the Purpose of:: To increase ROM, To decrease soft tissue restriction, To increase flexibility/ROM Please do not hesitate to contact me at [phone] by phone or if you have questions or concerns regarding this new plan of care! Sincerely, AIDA Peterson
== END 2022-08-08 19:00 | disposition home or self-care (01) ==
LOC: PT 15:30
PROVIDERS: PCP Family Medicine; Referring Provider Physician Assistant; Visit Provider Physician Assistant
DX: G20 Parkinson's disease (principal)
CPT/HCPCS: 97110; 97161; 97164; 97530

== ENCOUNTER → 2022-08-08 | Outpatient (CLI) | payer MEDICARE, OTHER, SELFPAY ==
[2022-08-10 10:08] LABS: Cancer Antigen 125 10.6 U/mL (0.0-38.1)
== END | disposition home or self-care (01) ==
LOC: MTLAB 14:12
PROVIDERS: PCP Family Medicine
DX: C54.1 Malignant neoplasm of endometrium (principal)
CPT/HCPCS: 36415; 86304

== ENCOUNTER → 2022-08-11 | Outpatient (CLI) | payer MEDICARE, OTHER, SELFPAY ==
--- NOTE | 2022-08-11 08:42 | MRI_ITS ---
STUDY: MRI BRAIN WITHOUT CONTRAST REASON FOR EXAM: Female, 77 years old. PARKINSONS DISEASE, FREQUENT FALLS TECHNIQUE: Standardized multiplanar fat and water weighted pulse sequences were obtained. COMPARISON: 11/16/2021 FINDINGS: There is moderate cerebral atrophy with widening of the extra-axial spaces and ventricular dilatation. There are a limited number of small white matter hyperintensities, distributed throughout the deep white matter tracts of the cerebral hemispheres, consistent with mild chronic white matter ischemic changes. There is no evidence for recent intracranial ischemia or other cause of cytotoxic edema on diffusion weighted imaging (DWI). Normal T2* images of the brain without demonstrated susceptibility artifact. There is no demonstrated hemosiderin stain. Mid brain iron stores are preserved. Normal bilateral basal ganglia. Normal thalami. There is no extra-axial fluid accumulation. Normal flow voids within the major intracranial circulation suggesting patency by spin echo criteria. Normal sella turcica, pituitary gland, infundibular stalk, optic chiasm and hypothalamus. Normal tectal plate and pineal gland. Normal midbrain, felix and medulla. Normal cerebellum. Normal basal cisterns. Normal bilateral temporal bones. Normal bilateral internal auditory canals. No demonstrated orbital abnormality, within the constraints of a routine brain study. Normal visualized paranasal sinuses. Normal calvarium and skull base. Normal visualized soft tissue structures. Normal visualized upper cervical spine. MRI/Brain without Contrast IMPRESSION: Involutional changes of the brain, as described above. Electronically Signed: Gabino Bhakta MD at 8:39 EDT ,
== END | disposition home or self-care (01) ==
LOC: MRI 08:38
PROVIDERS: PCP Family Medicine; Referring Provider Family Medicine; Visit Provider Family Medicine
DX: G20 Parkinson's disease (principal); R42 Dizziness and giddiness
CPT/HCPCS: 70551

== ENCOUNTER → 2022-08-20 | Outpatient (CLI) | payer MEDICARE, OTHER, SELFPAY ==
[2022-08-20 18:38] LABS: Vitamin D,25 Hydroxy 79.2 ng/mL
== END | disposition home or self-care (01) ==
LOC: MFPLAB 14:10
PROVIDERS: PCP Family Medicine; Visit Provider Family Medicine
DX: E55.9 Vitamin D deficiency, unspecified (principal)
CPT/HCPCS: 36415; 82306

== ENCOUNTER 2022-09-07 08:48 | Emergency (ER) | payer MEDICARE, OTHER, SELFPAY ==
[2022-09-07 08:49] VITALS: BP 134/68; PULSE 97; RESP 14; TEMP 36.6; O2SAT 92
--- NOTE | 2022-09-07 09:30 | RAD_ITS ---
STUDY: X-RAY - PELVIS AND RIGHT HIP REASON FOR EXAM: Female, 77 years old. Right hip pain following a fall. TECHNIQUE: 3 views of the pelvis and hip. COMPARISON: None. FINDINGS: There is a non-specific bowel gas pattern. Normal visualized soft tissue structures. Normal bilateral iliac wings, sacroiliac joints and visualized sacrum. Normal bilateral superior and inferior pubic rami. Normal pubic symphysis. Normal bilateral ischial tuberosities. Irregular appearance of the femoral head suggestive of possible avascular necrosis. There is osteoarthritic spur formation of the acetabular rim. is severe articular joint space narrowing of the hip. 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 RAD/HIP, UNI W/ Pelvis 2-3 Views IMPRESSION: Marked degree of degenerative change of the right hip joint. No acute abnormality is seen. Electronically Signed: Max Olsen MD at 10:55 EDT ,
--- NOTE | 2022-09-07 09:30 | CT_ITS ---
STUDY: CT BRAIN WITHOUT CONTRAST REASON FOR EXAM: Female, 77 years old. Laceration to the forehead. RADIATION DOSAGE (If Supplied By Facility): CTDIvol = ( 44.99 ) mGy, DLP = ( 769.11 ) mGycm TECHNIQUE: Transaxial CT imaging of the brain was performed without administration of intravenous contrast material. Individualized dose optimization techniques were used for this CT. COMPARISON: Comparison is made with prior study November 21, 2021. FINDINGS: Normal soft tissue structures. Normal calvarium. There is mild cerebral atrophy with widening of the extra-axial spaces and ventricular dilatation. There are areas of decreased attenuation within the white matter tracts of the supratentorial brain, consistent with microvascular disease changes. Normal basal ganglia and thalami. Normal brainstem. Normal cerebellum. There is no intracranial hemorrhage. There are no findings of an acute ischemic infarction. Atherosclerotic calcification of the cavernous portions of the internal carotid arteries bilaterally. Normal visualized paranasal sinuses. CT/Brain/Head without Contrast IMPRESSION: Chronic involutional changes of the brain. Electronically Signed: Max Olsen MD at 10:51 EDT ,
[2022-09-07 09:31] VITALS: BMI 30.6
--- NOTE | 2022-09-07 09:32 | EX.ED.DYSGE1 ---
HPI <Dr. Flo Christianson DO - Last Filed: 09/07/22 16:01> History of Present Illness Chief Complaint: Head Injury Detail of Chief Complaint: Fall with head injury Informant: patient Narrative Narrative: Patient presents to the emergency department complaint of a fall and head injury. Patient states that she had come back from the mailbox and was walking across her living room floor when she just fell and hit her head on the linoleum floor. Patient was unable to get up and so she called EMS. She sustained lacerations to her forehead. She is unsure of her last tetanus shot. She denies loss of consciousness. She denies neck pain. She complains of some pain in her right hip and right knee but was able to bear some weight with assistance from EMS. Patient does have a history of Parkinson's and states that she falls frequently. Patient not anticoagulated. [facility] <Dr. Flo Christianson DO - Last Filed: 09/07/22 16:01> [facility] Medical History (Updated 09/07/22 @ 11:[address] Flo Christianson DO) Abnormal bruising Acute bronchitis, unspecified Back pain Carpal tunnel syndrome Difficulty balancing Encounter for screening for malignant neoplasm of lung in former smoker who quit in past 15 years with 30 pack year history or greater Endometrial cancer Fatigue High cholesterol History of tobacco use Hypertension Migraines Parkinson disease Shoulder pain URI (upper respiratory infection) Uterine cancer Home Medications carbidopa 25 mg-levodopa 100 mg tablet 1 tab PO BID parkisons 11/22/21 [History Last Taken Unknown] acetaminophen 500 mg tablet 1,000 mg (2 x 500 mg) PO Q6H PRN PRN Pain Score 1-10 #0 tabs 11/29/21 [Rx Last Taken Unknown] carboxymethylcellulose sodium 1 % eye gel in a dropperette (TheraTears) 1 ea EACH EYE Q1H PRN DRY EYES #0 ea 11/29/21 [Rx Last Taken Unknown] cholecalciferol (vitamin D3) 50 mcg (2,000 unit) capsule (D3-2000) 50 mcg PO DAILY 03/16/22 [History Last Taken Unknown] coenzyme [id number] E 100 mg-100 unit capsule cap PO 03/16/22 [History Last Taken Unknown] Allergy/AdvReac Type Severity Reaction Status Date / Time No Known Allergies Allergy Verified 09/07/22 08:49 Family History Mother CVA (cerebral vascular accident) Hypertension Arthritis Heart disease Father Cancer Skin cancer Sister CVA (cerebral vascular accident) Hypertension Brother Hypertension CVA (cerebral vascular accident) Surgical History H/O: hysterectomy History of hip surgery History of left hip replacement History of left shoulder replacement Social History household members: spouse housing: house Smoking Status: Former smoker quit date: 01/02/15 pack-years: 40 Tobacco: How many years used: 40 Electronic Cigarette Use: not used second hand exposure: Yes quit status: has quit before counseling given: provider counseling alcohol intake: never what type of physical activity do you participate in: walking and other details: golf do you feel safe at home: Yes ROS <Dr. Flo Christianson DO - Last Filed: 09/07/22 16:01> ROS ED Review of Systems ROS Unobtainable: other Constitutional Constitutional ED: Reports lethargy; Denies chills, fever(s), sweats or weight loss Eyes Eyes: Denies blurry vision, change in vision or diplopia ENT ENT ED: Denies rhinorrhea or sore throat Cardiovascular Cardiovascular: Denies chest pain, orthopnea or racing heartbeat Respiratory/Chest Respiratory/Chest: Denies cough, dyspnea, dyspnea on exertion, orthopnea or sputum Gastrointestinal Gastrointestinal: Denies abdominal pain, diarrhea, nausea or vomiting Genitourinary Genitourinary ED: Denies dysuria, hematuria or urinary frequency Musculoskeletal Musculoskeletal: Reports other Details: Right hip and right knee pain ; Denies arthralgias, back pain, myalgias or neck pain Integumentary Reports other Details: Forehead lacerations ; Denies abscess, Abrasions or rash Neurologic Neurologic: Denies headache(s) or weakness Psychiatric Psychiatric: Denies anxiety, depression or suicidal thoughts Endocrine Endocrinology: Denies polydipsia, polyphagia or polyuria Hematologic/Lymphatic Hematologic/Lymphatic: Denies easy bleeding, easy bruising or lymphadenopathy Allergic/Immunologic Allergic/Immunologic ED: Denies mouth swelling, tongue swelling or urticaria EXAM <Dr. Flo Christianson DO - Last Filed: 09/07/22 16:01> Physical Exam Const Vital Signs: 09/07/22 08:49 09/07/22 11:34 Temperature 98 F Temperature Source Temporal Pulse Rate 97 84 Respiratory Rate 14 16 Blood Pressure 134/68 H 184/75 H Blood Pressure Mean 90 Pulse Ox 92 Oxygen Delivery Method Room Air Positive well nourished and well developed General Appearance ED: well developed and NAD HEENT Reports TM's clear and moist mucous membranes HEENT Narrative: Patient with 2 lacerations to her forehead measuring 2.5 cm each. No active bleeding. No bony step-offs or depressions noted. normocephalic and atraumatic; Negative for trauma or tenderness Tympanic Membrane ED: Yes TM's clear Eyes PERRL and EOMs intact bilaterally General Eye ED: Negative for pale conjunctiva or scleral icterus Neck no lymphadenopathy, supple and no JVD General: Negative for tenderness Chest Wall inspection of chest normal and palpation of chest normal Chest: Negative for tenderness Resp normal respiratory effort and clear to auscultation bilaterally Effort and Inspection: Negative for respiratory distress or pain with movement Auscultation: Negative for rhonchi, wheezes or diminished lung sounds Cardio regular rate, regular rhythm, S1 normal heart sound, S2 normal heart sound and no murmurs Peripheral Pulses: pulses 2+ throughout GI normal to inspection, nondistended, normoactive bowel sounds, soft to palpation, non-tender, non-distended and no masses Back/Spine no CVA tenderness and no thoracic nor lumbar tenderness Extremity normal to inspection General Extremety ED: Negative for edema General Extremity: Negative for edema Neuro oriented x3, CN's II-XII intact bilaterally, no sensory deficits noted and gait normal Sensorium / Orientation: awake, alert, oriented to person, oriented to place and oriented to time Motor Exam: strength 5/5 throughout and strength abnormal Psych mental status grossly normal Skin no rashes or lesions noted and no wounds <ECHO Schulte - Last Filed: 09/07/22 11:15> Physical Exam Const Vital Signs: 09/07/22 08:49 09/07/22 11:34 Temperature 98 F Temperature Source Temporal Pulse Rate 97 84 Respiratory Rate 14 16 Blood Pressure 134/68 H 184/75 H Blood Pressure Mean 90 Pulse Ox 92 Oxygen Delivery Method Room Air MDM <Dr. Flo Christianson DO - Last Filed: 09/07/22 16:01> [facility] Narrative Medical decision making narrative: Patient presents after a mechanical fall. She had a CT scan of the brain without contrast that which showed chronic involutional changes otherwise no acute hemorrhage or skull fracture. Patient also had x-rays of the right hip and right knee which were unremarkable for fracture or dislocation. Forehead lacerations were repaired by physician anesthesiologists' assistant please see procedure note. Patient will be advised to follow-up with her primary care physician in 5 to 7 days for suture removal. She will be discharged to home in stable condition Radiography Diagnostic Testing: Clinical Impression(s) from Imaging Studies Brain CT 09/07/22 09:30 IMPRESSION: Chronic involutional changes of the brain. Electronically Signed: Max Olsen MD at 10:51 EDT , Hip/Pelvis X-Ray 09/07/22 09:30 IMPRESSION: Marked degree of degenerative change of the right hip joint. No acute abnormality is seen. Electronically Signed: Max Olsen MD at 10:55 EDT , Knee X-Ray 09/07/22 10:10 IMPRESSION: Normal x-ray examination of the knee. Electronically Signed: Max Olsen MD at 10:53 EDT , 4 view x-rays of the right knee obtained interpreted by myself as no evidence of fracture or dislocation. She had degenerative changes. Radiology in agreement. Three-view x-rays of the right hip and pelvis obtained interpreted by myself as no acute fractures. Radiology in agreement. <ECHO Schulte - Last Filed: 09/07/22 11:15> [facility] Radiography Diagnostic Testing: Clinical Impression(s) from Imaging Studies Brain CT 09/07/22 09:30 IMPRESSION: Chronic involutional changes of the brain. Electronically Signed: Max Olsen MD at 10:51 EDT , Hip/Pelvis X-Ray 09/07/22 09:30 IMPRESSION: Marked degree of degenerative change of the right hip joint. No acute abnormality is seen. Electronically Signed: Max Olsen MD at 10:55 EDT , Knee X-Ray 09/07/22 10:10 IMPRESSION: Normal x-ray examination of the knee. Electronically Signed: Max Olsen MD at 10:53 EDT , Procedures <ECHO Schulte - Last Filed: 09/07/22 11:15> Lacerations forehead: Length: 1.18 in Depth: Sub Q Shape: Linear Prep: Sterile Conditions and Shure-Clens Laceration repair: Irrigated, Lidocaine with epi, Local, Skin sutures and Wound explored Number of Sutures/[place]: 3 Suture Information: Ethilon and 6-0 left forehead: Length: 1.18 in Depth: Sub Q Shape: Linear Prep: Sterile Conditions and Shure-Clens Laceration repair: Irrigated, Lidocaine with epi, Local, Skin sutures and Wound explored Number of Sutures/[place]: 3 Suture Information: Ethilon and 6-0 Comment: two separate 3 cm forehead lacerations both closed with 3 sutures each (6 total). Discharge Plan Triage Chief Complaint: Head Injury Other Complaint: Laceration ED Provider: Flo Christianson Dx/Rx/DC Orders Clinical Impression: Closed head injury, Abrasion, Forehead laceration, Fall, Contusion of knee, right Instructions: ED Abrasion, ED Head Injury (Adult), ED Laceration Scalp Stitches or [place] Prescriptions: No Action coenzyme [id number] E 100-100 mg-unit capsule PO cholecalciferol (vitamin D3) [D3-2000] 50 mcg (2,000 unit) capsule 50 mcg PO DAILY carbidopa-levodopa 25-100 mg tablet 1 tab PO BID acetaminophen 500 mg Tablet 1,000 mg PO Q6H PRN PRN (Reason: Pain Score 1-10) Qty: 0 0RF carboxymethylcellulose sodium [TheraTears] 1 % Dropperette,Gel 1 ea EACH EYE Q1H PRN (Reason: DRY EYES) Qty: 0 0RF Primary Care Provider: Arely Mohamud Referrals: Arely Mohamud, [Primary Care Provider] - 7 Days for suture removal Disposition Disposition: Home, Self Care Discharge Date/Time: 09/07/22 11:36
[2022-09-07] MEDS: Diphth,Pertuss(Acell),Tet Vac 0.5 ML Vial IM (09:55)
--- NOTE | 2022-09-07 10:10 | RAD_ITS ---
STUDY: X-RAY - RIGHT KNEE REASON FOR EXAM: Female, 77 years old. Knee pain following a fall. TECHNIQUE: 4 view(s) of the knee. COMPARISON: Comparison is made with prior study November 21, 2021. FINDINGS: Normal visualized distal femur. Normal visualized proximal tibia and fibula. Normal proximal tibiofibular articulation. Normal medial femorotibial compartment. Normal lateral femorotibial compartment. Normal patellofemoral articulation. The soft tissue structures are unremarkable. RAD/Knee 4 or More Views IMPRESSION: Normal x-ray examination of the knee. Electronically Signed: Max Olsen MD at 10:53 EDT ,
--- NOTE | 2022-09-07 10:36 | ED.RN ---
called pharmacy for lidocaine medication
[2022-09-07] MEDS: Lidocaine 1% /Epi 1:100 (20ml) 20 ML Vial 6 ML INFILT (11:30)
[2022-09-07 11:34] VITALS: BP 184/75; PULSE 84; RESP 16
== END 2022-09-07 11:36 | disposition home or self-care (01) ==
PROVIDERS: Emergency Provider Emergency Medicine; PCP Family Medicine; Referring Provider Emergency Medicine; Visit Provider Emergency Medicine
DX: S01.81XA Laceration without foreign body of other part of head, initial encounter (principal); G20 Parkinson's disease; I10 Essential (primary) hypertension; Z87.891 Personal history of nicotine dependence; E78.00 Pure hypercholesterolemia, unspecified; S80.01XA Contusion of right knee, initial encounter; W19.XXXA Unspecified fall, initial encounter; Z91.81 History of falling; M25.551 Pain in right hip; Z23 Encounter for immunization
CPT/HCPCS: 12011; 70450; 73502; 73564; 90471; 90715; 99285

== ENCOUNTER → 2022-09-12 | Outpatient (CLI) | payer MEDICARE, OTHER, SELFPAY ==
[2022-09-12 17:54] LABS: Absolute Neutrophil Count 3.6 X10^3/uL (2.0-7.7); Basophil# 0.04 X10^3/uL; Basophil% 0.5 % (0-1); Eosinophil# 0.11 X10^3/uL; Eosinophils% 1.4 % (0-5); Hematocrit 47.5 % (37-47); Hemoglobin 15.1 g/dL (12.0-15.0); Lymphocyte % 43.2 % (19-41); Mean Corp Hgb Conc 31.8 g/dL (32-36); Mean Corpuscular Hgb 30.1 pg (27.0-32.0); Mean Corpuscular Volume 94.8 fL (81-99); Monocyte# 0.67 X10^3/uL; Monocyte% 8.5 % (0-10); NRBC Flagged by Analyzer 0 % (0-5); Neutrophil # 3.63 X10^3/uL (2.7-7.7); Neutrophil % 46.1 % (47-70); Platelet Count 329 K/mm3 (150-450); RBC Distribution Width SD 44.7 fl (35.1-43.9); Red Blood Count 5.01 M/mm3 (4.2-5.4); White Blood Count 7.9 K/mm3 (4.4-11.0)
[2022-09-12 18:26] LABS: ALB/GLOB Ratio 0.8 RATIO (0.9-2.4); AST(SGOT) 12 U/L (15-37); Alanine Aminotransfer ALT/SGPT 9 U/L (13-56); Albumin, Serum 3.4 g/dL (3.2-5.0); Alkaline Phosphatase 75 U/L (45-117); Anion Gap 6 (5-15); BUN 13 mg/dL (7-18); BUN/Creat Ratio 16.3 RATIO (10-20); Calcium,Total 9.3 mg/dL (8.5-10.1); Chloride 108 mmol/L (98-107); EST Glomerular Filtration Rate 74 mL/min (>60); Est Glom Filt Rate - Afr Amer 90 mL/min (>60); Globulin 4.2 g/dL (2.2-4.2); Glucose 92 mg/dL (74-106); Potassium 3.9 mmol/L (3.5-5.1); Protein, Total 7.6 g/dL (6.4-8.2); Sodium Level 140 mmol/L (136-145); Thyroid Stim Hormone (TSH) 1.63 uIU/mL (0.358-3.74)
[2022-09-12 18:39] LABS: Vitamin D,25 Hydroxy 68.5 ng/mL
== END | disposition home or self-care (01) ==
PROVIDERS: PCP Family Medicine; Visit Provider Family Medicine
DX: R53.83 Other fatigue (principal); E55.9 Vitamin D deficiency, unspecified
CPT/HCPCS: 36415; 80053; 82306; 84443; 85025

== ENCOUNTER 2022-09-24 09:14 | Emergency (ER) | payer MEDICARE, OTHER, SELFPAY ==
[2022-09-24 09:15] VITALS: BP 147/69; PULSE 78; RESP 18; TEMP 36.2; O2SAT 98; BMI 27.6
--- NOTE | 2022-09-24 09:33 | CT_ITS ---
STUDY: CT CERVICAL SPINE WITHOUT CONTRAST REASON FOR EXAM: Female, 77 years old. Polytrauma RADIATION DOSAGE (If Supplied By Facility): CTDIvol = ( 22.68 ) mGy, DLP = ( 434.74 ) mGycm TECHNIQUE: High resolution transaxial imaging was performed without contrast material. Sagittal and coronal images were reconstructed. Individualized dose optimization techniques were used for this CT. COMPARISON: Comparison is made with prior study November 21, 2021. FINDINGS: Normal craniovertebral junction. Normal anterior atlantoaxial articulation. Normal odontoid process. There is straightening of the normal cervical lordosis. Spondylosis at the C4-C5 and C5-6 levels. Mucosal thickening of the left mastoid air cells. Stable bone island in the right lateral mass of the C1 vertebrae. C2-3: Minimal anterior listhesis of C2 on C3 due to facet joint osteoarthritis. C3-4: Facet joint osteoarthritis hypertrophy worse on the left side. No significant neural foraminal stenosis seen. C4-5: Anterior spondylosis. Mild degree of disc space narrowing. Mild degree of hypertrophy of the left facet joint. C5-6: Mild anterior spondylosis. Facet joint osteoarthritis and hypertrophy on the left side. C6-7: Anterior spondylosis. No significant stenosis seen. C7-T1: Normal endplates. Normal disc height and morphology. Normal central canal and intervertebral neuroforamina. Normal visualized soft tissue structures. CT/Spine Cervical without Contras IMPRESSION: Multilevel degenerative changes, as described above. Incidental note is once again made of a bone island in the right lateral mass of the C1 vertebrae. Electronically Signed: Max Olsen MD at 10:28 EDT ,
--- NOTE | 2022-09-24 09:33 | CT_ITS ---
STUDY: CT FACIAL BONES WITHOUT CONTRAST REASON FOR EXAM: Female, 77 years old. Facial injury due to a fall. RADIATION DOSAGE (If Supplied By Facility): CTDIvol = ( 29.38 ) mGy, DLP = ( 547.46 ) mGycm TECHNIQUE: The patient was scanned in a multi detector CT scanner. Sagittal and coronal images were reconstructed. Individualized dose optimization techniques were used for this CT. COMPARISON: None. FINDINGS: Normal soft tissue structures. Normal orbital baldwin and orbital contents. Normal nasal bones and anterior nasal spine. Normal facial bones. There is no demonstrated fracture. Normal visualized paranasal sinuses. CT/Sinus/Facial Bone IMPRESSION: Normal unenhanced CT of the facial bones. Electronically Signed: Max Olsen MD at 10:24 EDT ,
--- NOTE | 2022-09-24 09:33 | CT_ITS ---
STUDY: CT BRAIN WITHOUT CONTRAST REASON FOR EXAM: Female, 77 years old. Head injury. Forehead laceration. RADIATION DOSAGE (If Supplied By Facility): CTDIvol = ( 44.99 ) mGy, DLP = ( 779.24 ) mGycm TECHNIQUE: Transaxial CT imaging of the brain was performed without administration of intravenous contrast material. Individualized dose optimization techniques were used for this CT. COMPARISON: Comparison is made with prior study dated September 07, 2022. FINDINGS: Normal soft tissue structures. Normal calvarium. There is mild cerebral atrophy with widening of the extra-axial spaces and ventricular dilatation. There are areas of decreased attenuation within the white matter tracts of the supratentorial brain, consistent with microvascular disease changes. Normal basal ganglia and thalami. Normal brainstem. Normal cerebellum. There is no intracranial hemorrhage. There are no findings of an acute ischemic infarction. At the cirrhotic calcification of the cavernous portions of the internal carotid arteries bilaterally. Normal visualized paranasal sinuses. CT/Brain/Head without Contrast IMPRESSION: Chronic involutional changes of the brain. Electronically Signed: Max Olsen MD at 10:29 EDT ,
--- NOTE | 2022-09-24 09:35 | RAD_ITS ---
STUDY: X-RAY - RIGHT KNEE REASON FOR EXAM: Female, 77 years old. Knee pain following a fall. TECHNIQUE: 4 view(s) of the knee. COMPARISON: Comparison is made with prior study dated September 07, 2022. FINDINGS: Normal visualized distal femur. Normal visualized proximal tibia and fibula. Normal proximal tibiofibular articulation. Normal medial femorotibial compartment. Normal lateral femorotibial compartment. Normal patellofemoral articulation. The soft tissue structures are unremarkable. RAD/Knee 4 or More Views IMPRESSION: Normal x-ray examination of the knee. Electronically Signed: Max Olsen MD at 10:22 EDT ,
--- NOTE | 2022-09-24 09:38 | ED.VIS.FALL ---
HPI HPI - Fall History of Present Illness Chief Complaint: Fall Informant: patient and spouse/S.O. Narrative Narrative: Presents mechanical fall this morning. Got up out of bed walking around she stumbled hitting the wall. Laceration to the face. Headache. No neck or back pain. No anticoagulation medicines. Denies nausea or vomiting. Had a fall and facial LAC 3 weeks ago seen in the ED with repair. History of Parkinson's and was with a cane and a walker. Due to Parkinson's unstable gait. Is been diagnosed for the past 18 months. Pain to the right knee from the fall. Prior similar symptoms: Yes PFSH PFSH Medical History Abnormal bruising Acute bronchitis, unspecified Back pain Carpal tunnel syndrome Difficulty balancing Encounter for screening for malignant neoplasm of lung in former smoker who quit in past 15 years with 30 pack year history or greater Endometrial cancer Fatigue High cholesterol History of tobacco use Hypertension Migraines Parkinson disease Shoulder pain URI (upper respiratory infection) Uterine cancer Home Medications carbidopa 25 mg-levodopa 100 mg tablet 1 tab PO BID parkisons 11/22/21 [History Last Taken Unknown] acetaminophen 500 mg tablet 1,000 mg (2 x 500 mg) PO Q6H PRN PRN Pain Score 1-10 #0 tabs 11/29/21 [Rx Last Taken Unknown] carboxymethylcellulose sodium 1 % eye gel in a dropperette (TheraTears) 1 ea EACH EYE Q1H PRN DRY EYES #0 ea 11/29/21 [Rx Last Taken Unknown] cholecalciferol (vitamin D3) 50 mcg (2,000 unit) capsule (D3-2000) 50 mcg PO DAILY 03/16/22 [History Last Taken Unknown] coenzyme [id number] E 100 mg-100 unit capsule cap PO 03/16/22 [History Last Taken Unknown] Allergy/AdvReac Type Severity Reaction Status Date / Time No Known Allergies Allergy Verified 09/07/22 08:49 Family History Mother CVA (cerebral vascular accident) Hypertension Arthritis Heart disease Father Cancer Skin cancer Sister CVA (cerebral vascular accident) Hypertension Brother Hypertension CVA (cerebral vascular accident) Surgical History H/O: hysterectomy History of hip surgery History of left hip replacement History of left shoulder replacement Social History household members: spouse housing: house Smoking Status: Former smoker quit date: 01/02/15 pack-years: 40 Tobacco: How many years used: 40 Electronic Cigarette Use: not used second hand exposure: Yes quit status: has quit before counseling given: provider counseling alcohol intake: never what type of physical activity do you participate in: walking and other details: golf do you feel safe at home: Yes ROS ROS ED Constitutional Constitutional ED: Denies chills, fever(s) or sweats Eyes Eyes: Denies change in vision ENT ENT ED: Denies dysphagia or sore throat Cardiovascular Cardiovascular: Denies chest pain, leg edema, palpitations or racing heartbeat Respiratory/Chest Respiratory/Chest: Denies cough, dyspnea or dyspnea on exertion Gastrointestinal Gastrointestinal: Denies abdominal pain, diarrhea, nausea or vomiting Genitourinary Genitourinary ED: Denies dysuria, hematuria or urinary frequency Musculoskeletal Musculoskeletal: Reports extremity pain; Denies back pain or neck pain Integumentary Reports wounds; Denies rash Neurologic Neurologic: Reports headache(s); Denies paresthesias or weakness EXAM Physical Exam Const Vital Signs: 09/24/22 09:15 09/24/22 09:14 Temperature 97.2 F L Temperature Source Temporal Pulse Rate 78 Respiratory Rate 18 Respiratory Effort Normal Respiratory Depth Normal Respiratory Pattern Normal Blood Pressure 147/69 H Blood Pressure Mean 95 Pulse Ox 98 Oxygen Delivery Method Room Air Room Air Positive well nourished and well developed Constitutional Narrative: GCS 15 General Appearance ED: well developed and NAD HEENT Reports moist mucous membranes HEENT Narrative: 4 cm vertical laceration right forehead crossing the medial aspect of the eyebrow. Subcu exposure. No active bleeding. No hemotympanums. normocephalic Eyes PERRL, EOMs intact bilaterally and conjunctivae normal General Eye ED: Yes normal appearance of both eyes Neck no lymphadenopathy and supple General: Negative for tenderness Chest Wall Chest: Negative for tenderness Resp normal respiratory effort and normal air movement Effort and Inspection: symmetric chest movement; Negative for respiratory distress Cardio regular rate, regular rhythm and no murmurs Peripheral Pulses: pulses 2+ throughout GI normal to inspection, nondistended, normoactive bowel sounds and non-tender Palpation: Negative for guarding or rebound tenderness present Back/Spine no CVA tenderness and no thoracic nor lumbar tenderness Extremity Extremity Narrative: Upper extremities: Full range of motion without tenderness. Bandage to the right elbow was there previously no tenderness. Right lower extremity: Negative logroll. Knee extensor mechanism intact. There is patellar tenderness with knee abrasion. No lacerations. No deformities. No ankle tenderness. Pulses intact distally. Left lower extremity: Negative logroll, nontender. Pulse intact distally. General Extremety ED: Negative for edema or tenderness General Extremity: Negative for edema Neuro oriented x3, CN's II-XII intact bilaterally and no sensory deficits noted Sensorium / Orientation: awake and alert Skin no rashes or lesions noted and no wounds MDM MDM MDM Narrative Medical decision making narrative: Interventions / MDM: Differential diagnosis: Facial laceration Diagnosis considered but do not suspect: Intracranial hemorrhage, skull fracture, cervical spine fracture however images all negative. My EKG interpretation: N/A Imaging independently reviewed and interpreted by myself: CT head/face/cervical spine: Negative also read by radiology. Right knee x-ray 4 views: No fracture or dislocation noted. External documents reviewed: N/A Test considered but not ordered:N/A ED course: Patient mechanical fall with facial laceration. Nursing evaluate records note her tetanus was updated 3 weeks ago. Trauma scans head neck and face were negative right knee x-ray negative. Knee abrasion cleansed and dressed by nursing. Facial laceration repaired by myself a total of 9 sutures. Wound care discussed. Follow-up with your doctor for suture removal. Patient able to ambulate with a walker in the department. She is given Tylenol for her knee pain. She will continue this as needed. Procedure note: Normal sterile conditions. Verbal consent. 2 cc 1% lidocaine used for right supraorbital block with good analgesia. Wound was cleansed with normal saline. Total of 9, 6-0 nylon simple interrupted sutures placed with good approximation. Antibiotic ointment placed by myself. Patient tolerated procedure well. Re-evaluation: stable Disposition discussed with patient/family/significant other: Patient and significant other Case discussed with consulting clinician: N/A This note was generated with [employer] software. It may contain incorrect words, spelling, and punctuation that were not noted in checking the note before signing. Radiography Diagnostic Testing: Clinical Impression(s) from Imaging Studies Brain CT 09/24/22 09:33 IMPRESSION: Chronic involutional changes of the brain. Electronically Signed: Max Olsen MD at 10:29 EDT , Cervical Spine CT 09/24/22 09:33 IMPRESSION: Multilevel degenerative changes, as described above. Incidental note is once again made of a bone island in the right lateral mass of the C1 vertebrae. Electronically Signed: Max Olsen MD at 10:28 EDT , Facial/Sinus 09/24/22 09:33 IMPRESSION: Normal unenhanced CT of the facial bones. Electronically Signed: Max Olsen MD at 10:24 EDT , Knee X-Ray 09/24/22 09:35 IMPRESSION: Normal x-ray examination of the knee. Electronically Signed: Max Olsen MD at 10:22 EDT , Discharge Plan Triage Chief Complaint: Fall Other Complaint: Laceration Weakness ED Provider: Lamont Escobedo Dx/Rx/DC Orders Clinical Impression: CHI (closed head injury), Face lacerations, Contusion of knee, right, Abrasion of knee, right Instructions: ED Abrasion, ED Head Injury (Adult), ED Laceration: All Closures Prescriptions: No Action coenzyme [id number] E 100-100 mg-unit capsule PO cholecalciferol (vitamin D3) [D3-2000] 50 mcg (2,000 unit) capsule 50 mcg PO DAILY carbidopa-levodopa 25-100 mg tablet 1 tab PO BID acetaminophen 500 mg Tablet 1,000 mg PO Q6H PRN PRN (Reason: Pain Score 1-10) Qty: 0 0RF carboxymethylcellulose sodium [TheraTears] 1 % Dropperette,Gel 1 ea EACH EYE Q1H PRN (Reason: DRY EYES) Qty: 0 0RF Primary Care Provider: Arely Mohamud Referrals: Dmitry Monteiro MD [Med Staff - [employer]] - 5-7 Days Activity Restrictions/Additional Instructions: Scans of head face and neck are negative. X-ray right knee is negative. 9 sutures placed to your forehead. Wound care as discussed. Follow-up with your doctor for suture removal. Disposition Disposition: Home, Self Care Discharge Date/Time: 09/24/22 11:54
[2022-09-24] MEDS: Lidocaine 1% (20 ml mdv) 20 ML Vial INFILT (10:35)
[2022-09-24] MEDS: Acetaminophen 500 MG Tablet 1000 MG PO (11:49)
== END 2022-09-24 11:54 | disposition home or self-care (01) ==
PROVIDERS: Emergency Provider Emergency Medicine; PCP Family Medicine; Visit Provider Emergency Medicine
DX: S01.81XA Laceration without foreign body of other part of head, initial encounter (principal); S80.01XA Contusion of right knee, initial encounter; I10 Essential (primary) hypertension; R53.1 Weakness; E78.00 Pure hypercholesterolemia, unspecified; W22.09XA Striking against other stationary object, initial encounter; Z87.891 Personal history of nicotine dependence; S80.211A Abrasion, right knee, initial encounter; R51.9 Headache, unspecified; Z23 Encounter for immunization
CPT/HCPCS: 12013; 70450; 70486; 72125; 73564; 90471; 99283

== ENCOUNTER 2022-12-10 11:30 | Outpatient (RCR) | payer MEDICARE, OTHER, SELFPAY ==
--- NOTE | 2022-10-09 13:37 | HP.PTEVAL_ITS ---
Patient's Visit Information Visit Information Visit Information: RAMOS PADRON is a 77 year old F referred to Physical Therapy by Dmitry Monteiro MD with a diagnosis of [place]. Date of Evaluation: 10/09/22 Physical Therapist: AIDA Peterson Visit Plan Frequency: 2x /Week Duration: 2 Months Plan: 2X/ week for 8 weeks for SLOW CONTROLLED MOVEMENTS (pt does well when she moves slow...she can be impulsive and that is when she is at risk for falls), walker manuverability (she likes to run into things on the R side), standing and static balance (At times pt will be able to have full control of balance and at other times she will just suddenly lose her balance), LE strength, sit to stand, foam work, gait training, with HEP..... Pt will continue with PD class. Subjective Subjective: Pt saw Dr Monteiro to take stitches out of her head cause she fell and had stitches in her head and then two weeks later she had more stitches in her head. That PCP said to continue to go to PT. Pt is using a rollator walker. She switched her meds for PD (she dropped her meds and feels much better). The last time she fell was 2.5 weeks ago and is falling less. She goes down to [facility] on Nov 13 to see the Nuerologist down there for PD. No dizziness. She is impulsive and needs to slow down. Her keeps hollering at her. She feels that her legs are weak. She is up and moving and does some meals and does her meds and some laundry and does somethings on the computer. 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 Steps at home in and out of the house with a railing on the right side. If she falls she can get up from the floor but her wont let her get up on her own. Pain L hip pain: Pain Intensity (Out of 10): 8 Objective Objective: Gait: walks with a front wheeled walker and walks into things on the right side several times walking back to the treatment room and trips on her feet (especially the R and does not advance the R as much either) as well. Looks down mostly with walking. Sit to stand: uses B arm to stand up on first attempt to rolling walker Turning 180 degrees: Pt likes to move her walker and her upper body and leave her feet behind when turning and she likes to pivot on her feet with turning LE MMT: R hip flex 11.6 and L hip flex 13 R knee ext 17 and L 14.1 R knee flex 10.7 and L 11.5 R hip abd in supine 11 and L 15 Bridge: able to do 3/4 normal ROM with no pain FGA: 8 CATSIB: 99 Standing with feet together with EO and turning head R and L X 20 seconds without any LOB Stairs: Pt is able to go up and down recip with 1 hand rail slowly wtih good control with VC's to go slow Balance/Special Test Scores Functional Gait Assessment Score: 8 % Disability: 73.3400 CATSIB Score (Max score 120 seconds): 99 Lower Extremity Functional Score: 21 Goals Goal 1:: I HEP Goal Time Frame: 6-8 Weeks Goal 2:: Increase balance by increasing FGA score (score was 8 at eval) Goal Time Frame: 6-8 Weeks Goal 3:: Be able to walk back to the treatment room with rolling walker with slow controlled gait pattern without veering to the R and having to yank her walker back to the center to continue walking Goal Time Frame: 6-8 Weeks Goal 4:: Be able to turn 180 degrees X 5 attempts in a row without getting her feet tangled and picking up her feet with no LOB Goal Time Frame: 6-8 Weeks Rehabilitation Potential Rehabilitation Potential: Fair Anticipated Interventions Patient/Client Instruction: Educate patient on: Condition and Plan of Care For the Purpose of:: To improve nutrient delivery to tissue, To improve muscle performance and motor function, To improve ability to perform ADL's, To increase tolerance to activity/condition/position, To improve performance and independence with ADL's, To decrease level of supervision to perform tasks, To improve ability of physical actions for home/community/work/leisure, To improve gait and locomotor functions, To improve endurance, To improve balance and To improve safety with gait Therapeutic Exercise to Include: Strength training, Endurance training, Balance training, Coordination, Postural training, Gait and locomotor training and Neuromotor development For the Purpose of:: To improve muscle performance and motor function, To improve ability to perform ADL's, To increase tolerance to activity/conditi on/position, To improve performance and independence with ADL's, To decrease level of supervision to perform tasks, To improve ability of physical actions for home/community/work/leisure, To improve gait and locomotor functions, To improve balance and To improve safety with gait Functional Training to Include: Gait training For the Purpose of:: To improve gait and locomotor functions and To improve safety with gait Text: Thank you for the opportunity to evaluate your patient. For Medicare and Medicare HMO plans, please review the plan of care and approve it. It will need to be FAXED BACK to us at [phone] for Medicare purposes. For Medicare only, by signing this I certify the plan of care. Please let me know if there are questions or concerns regarding this plan of care. Physician Signature: Date:
--- NOTE | 2022-11-12 11:29 | HP.PTREVAL ---
Re-Evaluation Intro: Dmitry Monteiro MD, It has been my pleasure to treat RAMOS PADRON over the last 9 visits for [place]. Please see the progress note below for an update on the physical therapy plan of care! Subjective Subjective: Pt reports that she is still falling 3-4 times per week. She reports that she can not turn her walker. She goes to [facility] for a second opinion with a neurologist Objective Objective/Function: Pt is able to turn 180 degrees with the walker but has to stop and turn SLOWLY. She does not slow down and gets her feet tangled up. Plan Plan Plan: 2X/ week for 8 weeks for SLOW CONTROLLED MOVEMENTS (pt does well when she moves slow...she can be impulsive and that is when she is at risk for falls), walker manuverability (she likes to run into things on the R side), standing and static balance (At times pt will be able to have full control of balance and at other times she will just suddenly lose her balance), LE strength, sit to stand, foam work, gait training, with HEP..... Pt will continue with PD class. Balance/Gait/Functional tests Balance/Special Test Scores Functional Gait Assessment Score: 13 % Disability: 56.6700 CATSIB Score (Max score 120 seconds): 99 Lower Extremity Functional Score: 40 Goals Goals Goal 1:: I HEP Goal Time Frame: 6-8 Weeks Goal 2:: Increase balance by increasing FGA score (score was 13 at Re-eval) Goal Time Frame: 6-8 Weeks Goal Progress: Progressing Goal 3:: Be able to walk back to the treatment room with rolling walker with slow controlled gait pattern without veering to the R and having to yank her walker back to the center to continue walking Goal Time Frame: 6-8 Weeks Goal Progress: Progressing Goal 4:: Be able to turn 180 degrees X 5 attempts in a row without getting her feet tangled and picking up her feet with no LOB Goal Time Frame: 6-8 Weeks Goal Progress: Progressing Anticipated Interventions Anticipated Interventions Patient/Client Instruction: Educate patient on: Condition and Plan of Care For the Purpose of:: To improve nutrient delivery to tissue, To improve muscle performance and motor function, To improve ability to perform ADL's, To increase tolerance to activity/condition/position, To improve performance and independence with ADL's, To decrease level of supervision to perform tasks, To improve ability of physical actions for home/community/work/leisure, To improve gait and locomotor functions, To improve endurance, To improve balance and To improve safety with gait Therapeutic Exercise to Include: Strength training, Endurance training, Balance training, Coordination, Postural training, Gait and locomotor training and Neuromotor development For the Purpose of:: To improve muscle performance and motor function, To improve ability to perform ADL's, To increase tolerance to activity/condition/position, To improve performance and independence with ADL's, To decrease level of supervision to perform tasks, To improve ability of physical actions for home/community/work/leisure, To improve gait and locomotor functions, To improve balance and To improve safety with gait Functional Training to Include: Gait training For the Purpose of:: To improve gait and locomotor functions and To improve safety with gait Re-Evaluation Ending Re-evaluation ending: Please do not hesitate to contact me at [phone] by phone or if you have questions or concerns regarding this new plan of care! Sincerely, Lilliana Donaldson, MPT
--- NOTE | 2022-12-10 11:56 | HP.PTDCSUM ---
Discharge Summary D/C summary: It has been my pleasure to treat RAMOS PADRON referred by Dmitry Monteiro MD, with the diagnosis of [place] for a total of 14 visit(s). Discharge Date: 12/10/22 Please see the following information for a summary of their discharge status. Subjective Subjective: Pt reports that she is very tired today. She reports that TODAY IS HER LAST APPT because she is going down to [place] Pain L hip pain: Pain Intensity (Out of 10): Unrated LBP: Pain Intensity (Out of 10): Unrated B shoulder pain: Pain Intensity (Out of 10): Unrated Overall Improvement % Improvement: 10 Objective Objective/Function: Pt tripped on her own feet walking in twice with the use of her rolling walker and needed min A to help catch her balance. Pt was more tired that usual today. Goals Goal 1:: I HEP Goal Progress: Goal Met Goal 2:: Increase balance by increasing FGA score (score was 13 at Re-eval) Goal Progress: Progressing Goal 3:: Be able to walk back to the treatment room with rolling walker with slow controlled gait pattern without veering to the R and having to yank her walker back to the center to continue walking Goal Progress: Progressing Goal 4:: Be able to turn 180 degrees X 5 attempts in a row without getting her feet tangled and picking up her feet with no LOB Goal Progress: Progressing Plan Plan: DC PT D/C Information Discharge Comments: DC PT d/c sentence: If there are questions or concerns regarding this patient's physical therapy, please feel free to call me at [phone]. Thank you for the referral of this patient. Sincerely, Lilliana Donaldson, MPT Balance/Gait/Functional tests Balance/Special Test Scores Functional Gait Assessment Score: 12 % Disability: 60.0000 CATSIB Score (Max score 120 seconds): 99 Lower Extremity Functional Score: 40 Improvement % Improvement: 10
== END 2022-12-10 12:31 | disposition home or self-care (01) ==
LOC: PT 11:30
PROVIDERS: PCP Family Medicine; Referring Provider Family Medicine; Visit Provider Family Medicine
DX: Z91.81 History of falling (principal)
CPT/HCPCS: 97110; 97112; 97162; 97530

== ENCOUNTER 2023-01-15 15:17 | Emergency (ER) | payer MEDICARE, OTHER, SELFPAY ==
[2023-01-15 15:18] VITALS: BP 159/87; PULSE 75; RESP 12; TEMP 36.4; O2SAT 100
--- NOTE | 2023-01-15 15:30 | CT_ITS ---
STUDY: CT BRAIN WITHOUT CONTRAST REASON FOR EXAM: Female, 77 years old. TRAUMA RADIATION DOSAGE (If Supplied By Facility): CTDIvol = ( 44.99 ) mGy, DLP = ( 745.49 ) mGycm TECHNIQUE: Transaxial CT imaging of the brain was performed without administration of intravenous contrast material. Individualized dose optimization techniques were used for this CT. COMPARISON: September 24, 2022 CT head FINDINGS: Subcutaneous hematoma occiput. Normal calvarium. There is moderate cerebral atrophy with widening of the extra-axial spaces and ventricular dilatation. There are areas of decreased attenuation within the white matter tracts of the supratentorial brain, consistent with microvascular disease changes. Normal basal ganglia and thalami. Normal brainstem. Normal cerebellum. Intracranial atherosclerosis. There is no intracranial hemorrhage. There are no findings of an acute ischemic infarction. Normal visualized paranasal sinuses. CT/Brain/Head without Contrast IMPRESSION: Chronic involutional changes of the brain. Electronically Signed: Vicente Jade MD at 16:21 EST ,
--- NOTE | 2023-01-15 15:30 | CT_ITS ---
STUDY: CT CERVICAL SPINE WITHOUT CONTRAST REASON FOR EXAM: Female, 77 years old. TRAUMA RADIATION DOSAGE (If Supplied By Facility): CTDIvol = ( 19.62 ) mGy, DLP = ( 385.82 ) mGycm TECHNIQUE: High resolution transaxial imaging was performed without contrast material. Sagittal and coronal images were reconstructed. Individualized dose optimization techniques were used for this CT. COMPARISON: CT cervical spine September 24, 2022 FINDINGS: Normal craniovertebral junction. Normal anterior atlantoaxial articulation. Normal odontoid process. Normal cervical lordosis. Normal vertebral bodies and posterior osseous elements. Small sclerotic bone islands right C1 body again noted. C2-3: Normal endplates. Normal disc height and morphology. Normal central canal and intervertebral neuroforamina. C3-4: Normal endplates. Normal disc height and morphology. Normal central canal and intervertebral neuroforamina. C4-5: Normal endplates. Normal disc height and morphology. Normal central canal and intervertebral neuroforamina. C5-6: Normal endplates. Normal disc height and morphology. Normal central canal and intervertebral neuroforamina. C6-7: Normal endplates. Normal disc height and morphology. Normal central canal and intervertebral neuroforamina. C7-T1: Normal endplates. Normal disc height and morphology. Normal central canal and intervertebral neuroforamina. Normal visualized soft tissue structures. CT/Spine Cervical without Contras IMPRESSION: No fracture Electronically Signed: Vicente Jade MD at 16:23 EST ,
[2023-01-15 16:44] VITALS: BMI 26.4
--- NOTE | 2023-01-15 16:44 | EDS_ITS ---
HPI <ECHO Schulte - Last Filed: 01/15/23 16:50> History of Present Illness Chief Complaint: Head Injury Narrative Narrative: 77-year-old female has Parkinson's with progressive syncope nuclear palsy and has frequent falls. She stumbled and fell in the kitchen striking the back of her head on a counter and fell to the floor. No loss of consciousness. No blood thinners. She denies headache, visual changes, nausea or vomiting, and denies other injuries. She is able to ambulate into the ED. PFSH <ECHO Schulte - Last Filed: 01/15/23 16:50> [facility] Medical History Abnormal bruising Acute bronchitis, unspecified Back pain Carpal tunnel syndrome Difficulty balancing Encounter for screening for malignant neoplasm of lung in former smoker who quit in past 15 years with 30 pack year history or greater Endometrial cancer Fatigue High cholesterol History of tobacco use Hypertension Migraines Parkinson disease Shoulder pain URI (upper respiratory infection) Uterine cancer Home Medications carbidopa 25 mg-levodopa 100 mg tablet 1 tab PO BID parkisons 11/22/21 [History Last Taken Unknown] acetaminophen 500 mg tablet 1,000 mg (2 x 500 mg) PO Q6H PRN PRN Pain Score 1-10 #0 tabs 11/29/21 [Rx Last Taken Unknown] cholecalciferol (vitamin D3) 50 mcg (2,000 unit) capsule (D3-2000) 50 mcg PO DAILY 03/16/22 [History Last Taken Unknown] coenzyme [id number] E 100 mg-100 unit capsule 1 cap PO DAILY 03/16/22 [History Last Taken Unknown] rosuvastatin 10 mg tablet 10 mg PO DAILY 01/15/23 [History Last Taken Unknown] Allergy/AdvReac Type Severity Reaction Status Date / Time No Known Allergies Allergy Verified 01/15/23 15:23 Family History Mother CVA (cerebral vascular accident) Hypertension Arthritis Heart disease Father Cancer Skin cancer Sister CVA (cerebral vascular accident) Hypertension Brother Hypertension CVA (cerebral vascular accident) Surgical History H/O: hysterectomy History of hip surgery History of left hip replacement History of left shoulder replacement Social History household members: spouse housing: house Smoking Status: Former smoker quit date: 01/02/15 pack-years: 40 Tobacco: How many years used: 40 Electronic Cigarette Use: not used second hand exposure: Yes quit status: has quit before counseling given: provider counseling alcohol intake: never what type of physical activity do you participate in: walking and other details: golf do you feel safe at home: Yes ROS <ECHO Schulte - Last Filed: 01/15/23 16:50> ROS ED ROS Narrative Constitutional: Negative for fever, chills, malaise. Eyes: Negative for visual change. CVS: Negative for palpitations, chest pain, syncope. Respiratory: Negative for shortness of breath. GI: Negative for nausea, vomiting. Neuro: Negative for headache. Skin: Negative for wound. Musc: Negative for joint pain, swelling, trauma. EXAM <ECHO Schulte - Last Filed: 01/15/23 16:50> Physical Exam Narrative Exam Narrative: CONST: Patient sitting in no acute distress. EYES: Normal inspection. PERRLA, EOMI. HEAD: Right parietal occipital hematoma, no deformity or crepitus, no laceration. No raccoon eyes or lazaro sign, no nasal septal hematoma or epistaxis, no hemotympanum, no CSF otorrhea or rhinorrhea. NECK: Normal inspection. No midline spinal tenderness, no step off or crepitus. RESP: No respiratory distress, CTAB. CVS: Regular rate and rhythm, no murmur, no gallop. ABD: Soft and nontender, no guarding or rebound. Back: Normal inspection, no midline tenderness. SKIN: Color normal, no rash, warm, dry, intact. EXTREMITIES: Normal appearance, no tenderness of upper or lower extremities, 2+ radial DP pulses. NEURO: Oriented x4. PSYCH: Normal affect. Const Vital Signs: 01/15/23 15:18 01/15/23 16:41 01/15/23 17:21 Temperature 97.5 F L Temperature Source Temporal Pulse Rate 75 Respiratory Rate 12 16 Respiratory Effort Normal Blood Pressure 159/87 H Blood Pressure Mean 111 Pulse Ox 100 Oxygen Delivery Method Room Air <Dr. Flores Ibrahim DO - Last Filed: 01/15/23 17:26> Physical Exam Const Vital Signs: 01/15/23 15:18 01/15/23 16:41 01/15/23 17:21 Temperature 97.5 F L Temperature Source Temporal Pulse Rate 75 Respiratory Rate 12 16 Respiratory Effort Normal Blood Pressure 159/87 H Blood Pressure Mean 111 Pulse Ox 100 Oxygen Delivery Method Room Air MDM <ECHO Schulte - Last Filed: 01/15/23 16:50> [facility] MDM Narrative Medical decision making narrative: History gathered from: Patient and Patient has Parkinson's and had a mechanical fall striking her head on the kitchen counter. No LOC. No blood thinners. She denies headache or any symptoms from the injury. Awake and alert with GCS 15. Vital signs stable. She has a right sided parietal/occipital hematoma with no signs of basilar skull fracture. No lacerations. She is neurologically intact. CT scans of the brain and cervical spine are negative. I recommended ice and Tylenol and discussed return precautions and she was discharged in stable condition. Differential: Hematoma, skull fracture, intracranial hemorrhage Radiography Diagnostic Testing: Clinical Impression(s) from Imaging Studies Brain CT 01/15/23 15:30 IMPRESSION: Chronic involutional changes of the brain. Electronically Signed: Vicente Jade MD at 16:21 EST Reading Location ID and State: [email or web address] / [place] Tel , Service support , Cervical Spine CT 01/15/23 15:30 IMPRESSION: No fracture Electronically Signed: Vicente Jade MD at 16:23 EST , <Dr. Flores Ibrahim DO - Last Filed: 01/15/23 17:26> [facility] Radiography Diagnostic Testing: Clinical Impression(s) from Imaging Studies Brain CT 01/15/23 15:30 IMPRESSION: Chronic involutional changes of the brain. Electronically Signed: Vicente Jade MD at 16:21 EST , Cervical Spine CT 01/15/23 15:30 IMPRESSION: No fracture Electronically Signed: Vicente Jade MD at 16:23 EST , Treatment and Re-Evaluation :: I have personally performed a face to face assessment of the patient and have reviewed the NEISHA Note. I performed a substantive portion of the visit including all aspects of the following. My yadav findings include: History is patient is a 77-year-old female with history of poor balance, Parkinson disease and mild cognitive impairment as well as polyneuropathy presenting after mechanical fall. Patient fell backwards today striking the back of her scalp. Initially she had no complaints however she started to complain of more localized headache and neck pain while in the emergency room. Does have palpable hematoma of the posterior scalp however no associated abrasion/laceration. She is otherwise in her normal state of health. Does not seem like a syncope/near syncope presentation I do not think she requires work- up at this time. CT of the brain and cervical spine obtained that did not show any acute traumatic injury. Patient be discharged home. She is already in physical therapy. Counseled with that the only other thing we can do is offer placement at a nursing facility because of her frequent falls. They are not at that point yet. Patient counseled importance of using grab bars, using assistance with walking, not walking backwards and using her rollator. She verbalizes understanding and agreement of this. Discharged home in stable condition. Other additions or changes: [None] Discharge Plan Triage Chief Complaint: Head Injury ED Midlevel Provider: Nery Rodríguez ED Provider: Flores Ibrahim Dx/Rx/DC Orders Clinical Impression: Closed head injury, Hematoma of right parietal scalp Instructions: ED Head Injury (Adult), ED Hematoma Prescriptions: No Action coenzyme [id number] E 100-100 mg-unit capsule 1 cap PO DAILY cholecalciferol (vitamin D3) [D3-2000] 50 mcg (2,000 unit) capsule 50 mcg PO DAILY carbidopa-levodopa 25-100 mg tablet 1 tab PO BID acetaminophen 500 mg Tablet 1,000 mg PO Q6H PRN PRN (Reason: Pain Score 1-10) Qty: 0 0RF rosuvastatin 10 mg tablet 10 mg PO DAILY Patient Comments: take 1 tablet by mouth once daily Primary Care Provider: Arely Mohamud Referrals: Arely Mohamud, DO [Primary Care Provider] - Activity Restrictions/Additional Instructions: Ice and take Tylenol as needed. If you develop a severe headache or vomiting return to the ER. Disposition Disposition: Home, Self Care Discharge Date/Time: 01/15/23 17:23
[2023-01-15] MEDS: Acetaminophen 325 MG Tablet 650 MG PO (17:13)
[2023-01-15 17:21] VITALS: RESP 16
== END 2023-01-15 17:23 | disposition home or self-care (01) ==
LOC: ED 16:53
PROVIDERS: Emergency Provider Emergency Medicine; PCP Family Medicine; Visit Provider Emergency Medicine
DX: S00.03XA Contusion of scalp, initial encounter (principal); I10 Essential (primary) hypertension; E78.00 Pure hypercholesterolemia, unspecified; Z87.891 Personal history of nicotine dependence; G20.A1 Parkinson's disease without dyskinesia, without mention of fluctuations; R29.6 Repeated falls; Z79.899 Other long term (current) drug therapy; W01.198A Fall on same level from slipping, tripping and stumbling with subsequent striking against other object, initial encounter
CPT/HCPCS: 70450; 72125; 99282

== ENCOUNTER → 2023-03-06 | Outpatient (CLI) | payer MEDICARE, OTHER, SELFPAY ==
[2023-03-08 06:09] LABS: Cancer Antigen 125 9.1 U/mL (0.0-38.1)
== END | disposition home or self-care (01) ==
LOC: MTLAB 14:01
PROVIDERS: PCP Family Medicine
DX: C54.1 Malignant neoplasm of endometrium (principal)
CPT/HCPCS: 36415; 86304

== ENCOUNTER → 2023-04-30 | Outpatient (CLI) | payer MEDICARE, OTHER, SELFPAY ==
--- NOTE | 2023-04-30 11:00 | RAD_ITS ---
STUDY: X-RAY - RIGHT HAND REASON FOR EXAM: Female, 77 years old. Right hand injury. TECHNIQUE: 3 views of the right hand. COMPARISON: None. FINDINGS: Normal radiocarpal articulation. Normal distal radioulnar joint. Normal visualized carpal bones. Normal carpal articulations. There is degenerative arthrosis of the carpometacarpal articulation of the thumb with lateral subluxation of the first metacarpus. Normal second through fifth carpometacarpal joints. Normal metacarpi. Normal metacarpophalangeal joint of the thumb. Normal interphalangeal joint of the thumb. Normal proximal and distal phalanges of the thumb. Normal metacarpophalangeal joints of the second through fifth fingers. Normal proximal and distal interphalangeal joints of the second through fifth fingers. There is a 6 mm osseous fragment adjacent to the lateral margin of the distal phalanx of the third digit, probably the sequelae of an old/remote injury. Normal remainder of the phalanges of the second through fifth fingers. RAD/Hand Min 3 Views IMPRESSION: 6 mm osseous fragment adjacent to the lateral margin of the distal phalanx of the third digit, probably the sequelae of an old/remote injury. Degenerative arthrosis of the carpometacarpal articulation of the thumb with lateral subluxation of the first metacarpus. Electronically Signed: Kalia Rodriguez MD at 9:40 EST ,
--- OUTSIDE RECORDS SUMMARY | 2023-04-30 19:48 | XMS RPT_ITS | CCD ---
Author Name Unknown Address [address] [place] [address] Organization [facility] Care Team Providers Care Career Services Director Name Role Phone SHOLA WOOD Unavailable Unavailable SHOLA WOOD Unavailable Unavailable REYNOLD BETANCOURT Unavailable Unavailable Janine Rice Unavailable Lyssa Blackwood Unavailable Jalen Andrews Unavailable Unavailable Unavailable Unavailable Tonia Betancourt Primary Care Provider [phone] TONIA BETANCOURT MD Primary Care Physician [phone] TONIA BETANCOURT Primary Care Unavailable JHON DUGAN Admitting Unavailable JHON DUGAN Attending Unavailable JHON DUGAN Consulting Unavailable JHON DUGAN Attending Unavailable TONIA BETANCOURT Primary Care Unavailable Unavailable Primary Care Provider Unavailantwon ALVAREZ, TERRANCE Referring Unavailable GRAEME NAJERA Attending Unavailable PARK, TERRANCE Referring Unavailable PARK, TERRANCE Attending Unavailable PARK, TERRANCE Referring Unavailable PARK, TERRANCE Attending Unavailable PARK, TERRANCE Attending Unavailable PARK, TERRANCE Referring Unavailable JULIET BAL Referring Unavailable PARK, TERRANCE Attending Unavailable PARK, TERRANCE Referring Unavailable MAGGI PENALOZA Attending Unavailable Tonia Betancourt Primary Care Provider Rabia Fatima APRN, CNP Unavailable [phone] RABIA OLIVIER Attending Unavailable TONIA BETANCOURT Primary Care Unavailable Medications Current Medications Medication Drug Class(es) Dates Sig (Normalized) Sig (Original) acetaminophen 325 mg oral capsule (8 sources) Start: 11-22-2021 Tylenol 325 mg oral capsule Dose : 650 mg =, Oral, q4h, PRN Pain, scale 1-3, 0 Refill(s) Start Date: 11/22/21 Status: Ordered Completed/Discontinued Medications Medication Drug Class(es) Dates Sig (Normalized) Sig (Original) Acetaminophem 1000mg PRN (5 sources) Acetaminophem 10 00mg PRN Active CoQ10 (5 sources) CoQ10 Active iopamidol (ISOVUE-370) 76 % injection 75 mL (1 source) Start: 08-15-2020 End: 08-15-2020 iopamidol (ISOVUE-370) 76 % injection 75 mL Stool Softner (5 sources) Stool Softner Ac tive Vitamin D3 5000U (5 sources) Vitamin D3 5000U Active Zinc (5 sources) Zinc 50mg Active Problems Active Problems Problem Classification Problem Date Documented Da te Episodic/Chronic Cancer of other female genital organs (5 sources) History of malignant neoplasm of female genital organ; Translations: [Uterine Cancer] 12-07-2019 Episodic Past or Other Problems Problem Classification Problem Date Documented Date Episodic/Chronic Other acquired deformities (2 sources) Spondylolisthesis, lumbar region; Translations: [SPONDYLOLISTHESIS LUMBAR REGION] Onset: 04-19-2017 Episodic Spondylosis; intervertebral disc disorders; other back problems (1 source) Intervertebral disc disorders with radiculopathy, lumbar region; Translations: [IV DISC D/O W/RADICULOPATHY LUMB] Onset: 04-19-2017 Episodic Unclassified (5 sources) BMI 30.0-30.9,adult Unclassified (5 sources) High cholesterol Unclassified (5 sources) Stage 3 Endrometrial cancer- 201412-07-2019 Unclassified (5 sources) Former smoker Unclassified (7 sources) Onset: 12-13-2022 12-13-2022 NEGATED: Highlighted row has been ruled out!Unclassified (5 sources) Problem Onset: 12-07-2019 12-07-2019 Results Test Name Value Interpretation Reference Range Facil ity Vital Signs Date Time Vital Sign Value Performing Clinician Facility 02-20-2023 08:54-0500 Body height 156.2 cm Rabia Olivier APRN [place] [facility] Work Phone: [facility] 02-20-2023 08:54-0500 Body mass index (BMI) [Ratio] 25.28 kg/m2 Rabia Olivier APRN [place] [facility] Work Phone: [facility] 02-20-2023 08:54-0500 Body weight 61.69 kg Rabia Olivier DIRECTOR [employer]IV[employer] Work Phone: [facility] 02-20-2023 08:54-0500 Diastolic blood pressure 81 mm[Hg] Rabia Olivier DIRECTOR UNIVERS[employer] - [employer] WATCHER Work Phone: [facility] 02-20-2023 08:54-0500 Heart rate 68 /min Rabia Olivier DIRECTOR [employer]IV[employer] - [employer] Work Phone: [facility] 02-20-2023 08:54-0500 Systolic blood pressure 143 mm[Hg] Rabia Olivier DIRECTOR UNIVERS[employer] - [employer] WATCHER Work Phone: [facility] 12-13-2022 07:56-0400 Body height 156.2 cm Maggi Penaloza DIRECTOR UNIVERSITY-FIRE WATCHER Work Phone: [facility] 12-13-2022 07:56-0400 Body mass index (BMI) [Ratio] 26.21 kg/m2 Maggi Penaloza DIRECTOR [employer]IV[employer] W[employer]ER Work Phone: [facility] 12-13-2022 07:56-0400 Body temperature 98.29 [degF] Maggi Penaloza DIRECTOR UNIVERS[employer]-FI[employer] WATCHER Work Phone: [facility] 12-13-2022 07:56-0400 Body weight 63.96 kg Maggi Penaloza DIRECTOR UNIVERS[employer] WATCHER Work Phone: [facility] 12-13-2022 07:56-0400 Diastolic blood pressure 74 mm[Hg] Maggi Penaloza DIRECTOR UNIVERS[employer] WATCHER Work Phone: [facility] 12-13-2022 07:56-0400 Heart rate 83 /min Maggi Penaloza DIRECTOR UNIV[employer] W[employer]ER Work Phone: [facility] 12-13-2022 07:56-0400 Systolic blood pressure 146 mm[Hg] Maggi Penaloza DIRECTOR UNIV[employer] WATCHER Work Phone: [facility] 11-22-2021 10:53-0400 Body temperature 97.88 [degF] DR JHON DUGAN MD [address] [place] [address] 11-22-2021 10:53-0400 Diastolic blood pressure 60 mm[Hg] DR JHON DUGAN MD [address] 11-22-2021 10:53-0400 Heart rate 99 /min DR JHON DUGAN MD [address] 11-22-2021 10:53-0400 Mean blood pressure 83 mm[Hg] DR JHON DUGAN MD [address] [place] [address] 11-22-2021 10:53-0400 Reason For Taking VItal Signs DR JHON DUGAN MD [address] [place] [address] 11-22-2021 10:53-0400 Respiratory rate 16 /min DR JHON DUGAN MD [address] 11-22-2021 10:53-0400 Systolic blood pressure 129 mm[Hg] DR JHON DUGAN MD [address] 11-22-2021 07:54-0400 Body temperature 98.42 [degF] DR JHON DUGAN MD [address] [place] [address] 11-22-2021 07:54-0400 Diastolic blood pressure 72 mm[Hg] DR JHON DUGAN MD [address] [place] [address] 11-22-2021 07:54-0400 Heart rate 93 /min DR JHON DUGAN MD [address] [place] [address] 11-22-2021 07:54-0400 Mean blood pressure 94 mm[Hg] DR JHON DUGAN MD [address] [place] [address] 11-22-2021 07:54-0400 Reason For Taking VItal Signs DR JHNO DUGAN MD [address] [place] [address] 11-22-2021 07:54-0400 Respiratory rate 16 /min DR JHON DUGAN MD [address] [place] [address] 11-22-2021 07:54-0400 Systolic blood pressure 137 mm[Hg] DR JHON DUGAN MD [address] [place] [address] 11-22-2021 03:02-0400 Body temperature 98.42 [degF] DR JHON DUGAN MD [address] [place] [address] 11-22-2021 03:02-0400 Heart rate 90 /min DR JHON DUGAN MD [address] [place] [address] 11-22-2021 03:02-0400 Respiratory rate 16 /min DR JHON DUGAN MD [address] [place] [address] 11-21-2021 23:48-0400 Diastolic blood pressure 74 mm[Hg] DR JHON DUGAN MD [address] [place] [address] 11-21-2021 23:48-0400 Mean blood pressure 89 mm[Hg] DR JHON DUGAN MD [address] [place] [address] 11-21-2021 23:48-0400 Systolic blood pressure 118 mm[Hg] DR JHON DUGAN MD [address] [place] [address] 11-21-2021 23:44-0400 Body height 165.[address] JHON DUGAN MD [address] [place] [address] 11-21-2021 23:44-0400 Body weight [address] JHON DUGAN MD [address] [place] [address] 11-21-2021 23:44-0400 Body weight 25.68 kg/m2 DR JHON DUGAN MD [address] [place] [address] 11-21-2021 12:55-0400 Body weight [address] JHON DUGAN MD [address] [place] [address] 11-21-2021 12:55-0400 Heart rate 75 /min DR JHON DUGAN MD [address] [place] [address] 12-07-2019 15:38-0400 BMI (Body Mass Index) 30.06 kg/m2 [facility] Work Phone: 12-07-2019 15:38-0400 Body Temperature 96.9 [degF] Janine Rice [facility] Work Phone: Encounters Encounter Date Encounter Type Care Provider Facility Start: 03-12-2023 Telephone encounter Rabia villalta DIRECTOR UNIVERSITY - FI[employer] WATCHER Work Phone: [facility] Gynecologic Oncology Procedures Date Procedure Procedure Detail Performing Clinician Start: 12-13-2022 End: 12-13-2022 Psychiatric diagnostic evaluation Psychological and behavioral factors associated with disorders or diseases classified elsewhere Graeme Najera PhD Work Phone: Plan of Treatment Date Care Activity Detail Author Start: 09-07-2032 DTaP/Tdap/Td Vaccines (3 - Td or Tdap) DTaP/Tdap/Td Vaccines (3 - Td or Tdap) [facility] Start: 09-07-2032 Tetanus vaccination TETANUS [facility] Start: 02-21-2024 End: 02-21-2024 Patient encounter procedure 02/21/2024 9:30 AM EST Office Visit [facility] Gynecologic Oncology [address] [place] [id number] Rabia Olivier DIRECTOR UNIVERSITY - [employer] W[employer]ER [address] [facility] [address] [place], [place] [id number] [facility]necologic [facility]cology Start: 05-20-2023 End: 05-20-2023 Patient encounter procedure 05/20/2023 11:00 AM EDT Office Visit [facility] [address] [place] [address] Jazmyn Boyd DIRECTOR UNIVERSITY-FIRE WATCHER [address] [place] [address] [facility] Start: 02-20-2023 End: 02-21-2024 CA 125 CA 125 Lab Routine Endometrial cancer (CMS/HCC) (HCC) Expected: 02/20/2023 (Approximate), Expires: 02/21/2024 [facility] Work Phone: Immunizations Immunization Date Immunization Notes Care Provider Fa ciliwillis 11-23-2021 influenza virus vaccine, unspecified formulation Maggi Penaloza DIRECTOR UNIV[employer] W[employer]ER Work Phone: [facility] Payers Date Payer Category Payer Unknown 2015 Unknown [id number] 2010 Medicare [id number] 2010 Medicare [id number] 1959 Medicare [id number] 1945 Unknown [id number] 2.16.8 [id number] 1945 Unknown [id number] 2.16.8 [id number] 1945 Unknown [id number] 2.16 [id number] 1945 Unknown [id number] 2.16 [id number] 1945 Unknown [id number] 2.16 [id number] 1945 Unknown [id number] 2.16 [id number] 1945 Unknown [id number] 2.16 [id number] 1945 Unknown [id number] 2.16 [id number] 1945 Unknown [id number] 2.16 [id number] Social History Date Type Detail Facility Start: 02-19-2022 Alcohol Use Alcohol Use [facility] Work Phone: Functional Status Date Assessment Result Facility 11-22-2021 Functional Status Identified as high risk, Fall ID band on, Room located near nursing station, Bed alert on, Door open, Non-Slip footwear, Room check performed [facility] 11-22-2021 Functional Status Single level home [facility] 11-22-2021 Functional Status [facility] 11-22-2021 Functional Status Maintained [facility] 11-21-2021 Functional Status Repositions self [facility] Mental Status Date Assessment Result Facility 11-22-2021 [facility] 11-21-2021 Mental Status [facility] Clinical Notes 11-21-2021 to 03-13-2023 Telephone Encounter - Erin Hedrick MA - 03/13/2023 10:07 AM ESTTelephone Encounter - Erin Hedrick MA - 03/13/2023 10:07 AM ESTTelephone Encounter - Yelena Finney - 03/12/2023 10:31 AM EST Note Date & Type Note Facility 03-13-2023 Telephone encounter Note Pt returned call advised her of normal CA 125 [facility] 03-13-2023 Miscellaneous Notes Pt returned call advised her of normal CA 125 LVM with normal CA125 encouraged pt to call the office with any concerns or questions. documented in this encounter [facility] 03-12-2023 Telephone encounter Note LVM with normal CA125 encouraged pt to call the office with any concerns or questions. [facility] 02-20-2023 History of Presen t illness Narrative Gio @[email or web address]@ CC: metastatic (sites - right upper quadrant) endometrial cancer HISTORY OF THE PRESENT ILLNESS: Ramos Kim is a 77 y.o. with history of recurrent stage IA endometrial cancer initially diagnosed in June 2013. She was treated with robotic hysterectomy bilateral salpingo-oophorectomy and node dissection in September 2013. She then had a recurrence in the right upper quadrant which was resected in January 2015.. She underwent exploratory laparotomy with resection of an 8 cm right upper quadrant mass, infracolic omentectomy. This showed a poorly differentiated carcinoma with multifocal necrosis consistent with her gynecologic primary. It was strongly estrogen receptor positive but weekly progesterone receptor positive. Initial tumor marker at that time showed a CA-125 of 36. She was treated with 6 courses of carboplatinum and Taxol which finished in July 2015. The patient is now 6 years status post completion of chemotherapy. Followed by computed tomography scan on 08/02/2015 which revealed a 6 mm indeterminate left upper lobe nodule. Otherwise, no evidence of recurrent disease was noted. The patient was started on a SERM which she did not tolerate. Was placed on aromatase inhibitor which she also did not tolerate. Is currently not taking any chemotherapy. Computed axial tomography scan of the abdomen and pelvis in January 2017 showed no evidence of recurrent disease. Computed tomography scan of the abdomen pelvis in January 2018 showed no evidence of recurrent disease. Patient underwent a CT scan of the abdomen pelvis in August 2020 that showed no evidence of recurrent disease CA 125 was 13.5 Interval History Today the patient has no new abdominal or gynecologic complaints. Is doing well. She does not have: Abdominal pain, abdominal distention, pelvic pain, bloating, constipation, nausea/vomiting, increased abdominal girth, early satiety, weight loss, weight gain, vaginal bleeding, vaginal discharge, changes with urination. Diagnosed with Parkinson's Disease and has PT. Uses walker to ambulate. Lives at home with her . 02/06/22 CA 125=11.4. Aware she is due for CA 125 for this year. for 58 years as of 2022, anniversary is in May. drove her to appt today. [place] [id number] for [place] dinner, about 5 family members will be there, will enjoy the ham and other foods. Past Medical History: Diagnosis Date Anemia associated with chemotherapy Arthritis Dehydration Endometrial ca (CMS/HCC) (HCC) Diagnosis 06/30/2013 Hyperlipemia Nephrolithiasis Neutropenia (HCC) Osteopenia Plantar fasciitis Port catheter in place Postmenopausal Pulmonary nodule Tobacco abuse Past Surgical History: Procedure Laterality Date EXPLORATORY LAPAROTOMY 01/06/2016 w/resection of 8.0 cm right upper quadrant mass secondary to recurrent endometrial cancer. HYSTERECTOMY 08/07/2013 Robotic total laparoscopic hyst with BSO Retroperitoneal node dissection. ([place] JOINT REPLACEMENT Left 07/22/2019 JOINT REPLACEMENT KIDNEY STONE SURGERY @[email or web address]@ Allergies as of 02/20/2023 (No Known Allergies) REVIEW OF SYSTEMS: As per the HPI, otherwisenegative. Vitals: 02/20/23 0854 BP: (!) 143/81 Pulse: 68 Body mass index is 25.28 kg/m . Physical Exam Constitutional: Appearance: Normal appearance. HENT: Head: Normocephalic. Pulmonary: Effort: Pulmonary effort is normal. Abdominal: Palpations: Abdomen is soft. Genitourinary: Comments: .Uterus, cervix, bilateral adnexa surgically absent. No lesions or nodularity of the vaginal cuff, posterior cul-de-sac or rectovaginal vault. Skin: General: Skin is warm and dry. Neurological: Mental Status: She is alert and oriented to person, place, and time. Psychiatric: Mood and Affect: Mood normal. Behavior: Behavior normal. ASSESSMENT/PLAN: 77 y.o. with No evidence of recurrent disease on examination today. Labs and OV every year. Imaging will be obtained on an as-needed basis, based upon history and physical exam findings. The signs and symptoms of recurrence were reviewed and the patient will contact our office in the interim should any of these arise. The patient had an opportunity to ask questions, all of which were answered to the best of my ability. She is in agreement with the above noted plan. I spent a total time of 15 minutes reviewing previous notes, test results, obtaining history, communicating results to the patient as well as counseling the patient, documenting clinical information in the patient's electronic medical record and coordinating care for the patient. Disclaimer: This note was dictated by speech recognition. I apologize for minor errors in [employer] which may be present. documented in this encounter [facility] 12-13-2022 History of Presen t illness Narrative [facility] Follow up visit Ramos Kim is a 77 y.o. female with PSP who was last seen 11/13/[address] Alvarez. HISTORY OF PRESENT ILLNESS: Interval History: At last visit, sinemet reduced to 25/100mg 1 tablet PO TID due to lack of improvement. Met with Jenise Bean, manager social services. She did fall a few times once she decreased her sinemet but then it has evened out. Doesn't want to reduce her sinemet further at this time but we did discuss this. She denies any serious injury or head injury. They are considering a new walker- will defer to PT. She has had several falls but recently has done better. Denies any serious injury or head injury. DISEASE SUMMARY Handedness: R Duration of symptoms: 2019 Initial Symptoms: gait instability Neurosurgical History: None Medications Tried None other than current Current PD Medication Schedule Sinemet 25/100mg 1 tabs TID: 6a, 11a, 3p - misses doses; pt generally manages her own meds Symptomatic Assessment and Review of Systems: Treatment effective: unclear Motor fluctuations: unclear Dyskinesias: unclear Independent with activities of daily living: for the most part Falls: yes frequently due to freezing Freezing: yes Shuffling: yes Assistive devices used: walker Vision changes: double vision Dry mouth: yes Difficulty smelling: decreased significantly Dysphagia: denies Voice changes: softer Urinary problems: sometimes frequency and urgency Constipation: denies Sudden sleep attacks: denies Sleep disturbances: denies REM-BD Cognitive changes: Word finding difficulty, some issues with short-term memory Lightheadedness/Dizziness: denies Muscle cramping/toe curling: denies Depression: denies Anxiety: denies Hallucinations/Delusions: denies Symptoms of impulse control disorder: denies Currently driving: denies Exercise: denies Recent rehab services: denies PAST MEDICAL HISTORY, FAMILY HISTORY, SOCIAL HISTORY, ALLERGIES, MEDICATIONS Past medical, surgical, family, and social histories have been reviewed and updated with the patient today and are located elsewhere in the medical record. Allergies She has No Known Allergies. Current Medications Current Outpatient Medications Medication Sig acetaminophen 650 MG Tab CR 2 tablets. Cholecalciferol 50 MCG (2000 UT) capsule Take by mouth. Coenzyme Q10 100 MG capsule Take by mouth daily. Ibuprofen 200 MG tablet Take 1 tablet by mouth every 6 hours as needed for Mild Pain. Rosuvastatin 10 MG tablet Take 1 tablet by mouth daily. SINEMET PO Takes 25mg-125mg 3X a day REVIEW OF SYSTEMS: 14 point review of systems were reviewed and pertinent findings are as above. All others were negative. PHYSICAL EXAM: Vitals: Blood pressure 146/74, pulse 83, temperature 98.3 F (36.8 C), temperature source Infrared, height 1.562 m (5' 1.5 ), weight 64 kg (141 lb). Standardized Scales: MDS UPDRS Part 3 Date 12/13/2022 Last dose: 100mg sinemet 25/100mg Time last taken 5AM Time UPDRS assessed 949AM ON/OFF? ON Speech: 2 Facial Expression 2 Rigidity of Neck: 0 Rigidity Right Upper: 1 Rigidity Left Upper:: 1 Rigidity Right Lower:: 1 Rigidity Left Lower:: 1 Finger Taps Right:: 2 Finger Taps Left: : 2 Hand Movements Right:: 1 Hand Movements Left:: 1 Pronation Right:: 0 Pronation Left:: 0 Toe tapping Right 2 Toe tapping left 2 Leg Agility Right: : 1 Leg Agility Left:: 1 Arising from Chair: 1 Gait: 3 Freezing of gait 2 Postural stability nt Posture 2 Global Bradykinesia 1 Postural tremor RUE 0 Postural tremor LUE 0 Kinetic tremor R hand 0 Kinetic tremor L hand 0 Rest tremor RUE 0 Rest tremor LUE 0 Rest tremor RLE 0 Rest tremor LLE 0 Rest tremor lip/jaw 0 Constancy of rest tremor 0 Were dyskinesias present no Did they interfere with ratings na Total score 29 Previous UPDRS Score: 26 ASSESSMENT/PLAN 1. PSP (progressive supranuclear palsy) Ramos Kim is a 77 y.o. 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 Overall, the patient has moderate disease, but is well cared for. Objectively, the patient's UPDRS is stable at 29. At this time, will continue with sinemet 25/100mg 1 tablet PO TID- may consider reducing further as unclear benefit. They would like to continue it at this time. Follow-up with movement education specialist regarding double vision to see if prisms are appropriate. Encouraged appropriate hydration. PT recommended U-step walker with laser. Referral to neuropsychology for further cognitive testing today. Plan -Consider prisms for your glasses to help with double vision. -Continue sinemet 25/100mg 1 tablet by mouth three times per day- no changes. May consider reducing if unclear benefit. -Hydrate well. -PT recommended U-step walker with laser. -Referral to neuropsychology for further cognitive testing today. Follow up with Jazmyn Boyd in May as scheduled. The patient has been advised to call the office in the interim with any questions or concerns. ACTIVITY TIME Direct synchronous communication with the patient (in person). 25 minutes. Other patient care activities related to this service including preparing to see the patient and documenting clinical information in the electronic or other health record 6 minutes. Total time spent on this service. 31 minutes. Sincerely, Electronically signed by: MARY Farmer 12/13/2022 11:42 AM [facility] documented in this encounter [facility] 12-13-2022 History of Presen t illness Narrative You are about to read part of the chart with sensitive personal information. This part of the chart should not be discussed without provider and patient approval. OUTPATIENT BEHAVIORAL HEALTH INTAKE ASSESSMENT DATE: 12/13/2022 Start Time: 8:02 am Stop Time: 8:39 am Total Time: 37 minutes of assessment time Informant(s): spouse and patient Referral Source: outpatient provider (Terrance Alvarez MD, MPH) CHIEF COMPLAINT: Chief Complaint Patient presents with New Patient PD Multidisciplinary Clinic NOTE: Today's intake was conducted as part of comprehensive care within a multidisciplinary clinic, so the evaluation focused narrowly on the assessment of cognitive and psychiatric symptoms. Physical concerns were assessed by other clinic providers and are documented within their notes. HISTORY OF PRESENT ILLNESS: Ramos Kim is a 77 y.o., , female who was referred for assessment and treatment of cognitive and psychiatric factors in the context of progressive supranuclear palsy (symptom onset 2019). At today's evaluation, the patient and her endorsed mild language difficulties including trouble articulating her thoughts, losing her train of thought, and word-finding. These language difficulties have been present for a few months and are gradually worsening. These difficulties do worsen as the patient becomes more tired throughout the day. They denied concerns with the patient's memory or executive functioning. Both patient and her shared that their primary concerns are her physical abilities with reduced balance and increase falls. About two years ago the patient fell at [facility] and sustained a small hemorrhage. The patient denied cognitive sequale and returned to baseline shortly following this injury. Regarding mood, the patient shared trouble adjusting to worsening physical abilities but denied current symptoms of anxiety or depression. The patient reported a reduction in hobbies/activities but shared this is a physical limitation rather than anhedonia. The patient's sleep is not restful with trouble initiating and maintaining sleep. Additionally, she shared chronic pain that is interfering with her day to day activities. She denied a history of behavioral health treatment. The patient remains independent across most activities of daily living. The patient is managing the family finances and denied difficulty remembering to pay bills. She endorsed forgetfulness with taking medications. She uses a pillbox and phone alarms, but is still missing a few doses each week. She is not currently driving. BEHAVIORAL HEALTH ROS: Depression: none Elizabeth: none Anxiety: none Psychosis: none Motor: parkinsonism Other: pain PATIENT-REPORTED OUTCOMES: not collected Nutrition/Eating Disorder Screen: 1. Did patient uncontrollably eat a large amount of food, (more than what others would eat in the same time period) 2 or more times a week over the last 3 months? no 2. Over the last 3 months, has patient experienced distress when she/he eats, making it difficult to consume a needed amount of food to maintain healthy or expected weight? no 3. Does patient purge to counter what he/she has eaten because he/she feels too fat? no Other nutritional problems may include a weight loss or weight gain of 10 pounds or more in the past three months, a change in appetite, dental problems, noncompliance with a special diet, and food allergies. If the answer is yes to any of the above problems, refer patient for a nutritional assessment. Child/Adolescent Psychiatric History and Developmental ROS: ADHD: none reported Conduct problems: none reported Autism spectrum: none reported Developmental history: normal SUICIDE AND VIOLENCE RISK FACTOR ASSESSMENT: ED-SAFE: Over the past 2 weeks, have you felt down, depressed, or hopeless? no Over the past 2 weeks, have you had thoughts of killing yourself? no Suicide Risk & Safety: Suicidal ideation (current): denied by patient Suicidal actions (current): none Past suicide attempts: none Nonsuicidal self injury (current): no Past self-injurious behavior: no Demographic and social risk factors: and elderly Historical risk factors: none Medical risk factors: physical illness and chronic or uncontrolled pain Psychiatric risk factors: none Psychological risk factors: none Access to guns or other weapons: not assessed Protective factors: family and community support and treatment engagement Violent Ideations & Plans Violent ideation (current): no Past violent behavior/ideation: no Agitation (current): no Specific target identified: no BEHAVIORAL HEALTH HISTORY: Family psychiatric/substance use history: unknown Family suicide attempts/completions: unknown Previous psychiatric diagnoses: none reported Psychiatrist (current): none medication manager (current): none Therapist/Counselor (current): none TMS/ECT: none Psychiatric hospitalizations: none PHP/IOP (start with current, if any): none Psychotherapy (start with current, if any): none Past psychiatric medications (current meds below): none SUBSTANCE USE: Alcohol level on arrival: not applicable Quantity of current drug use: none History of IV drug use: no Urine drug screen: not applicable Perceived substance abuse problem (current): no History of dependence/addiction: no Consequences of dependence/addiction: Mental/emotional: no Behavioral (e.g., work, school, financial): no Legal: no Social (e.g., divorce, relationships): no Medical/physical: no Substance abuse treatment history: none PAST MEDICAL HISTORY: Patient has been informed of the importance of maintaining updated medication information/medical history: yes Per the medical record, the patient has a past medical history of Anemia, Arthritis, Endometrial cancer, Hyperlipidemia, Nephrolithiasis, Neutropenia, Osteopenia, and Vitamin D deficiency. She has no past surgical history on file. She has No Known Allergies. The patient has a current medication list which includes the following prescription(s): acetaminophen, cholecalciferol, coenzyme q10, ibuprofen, rosuvastatin, and carbidopa-levodopa. PHYSICAL EXAM TRIGGERS: Has it been more than a year since the patient s last physical? no Do the patient, guardian, or clinician have concerns about the patient s health? no Has there been any worsening of a chronic health condition since the patient was last seen by a healthcare provider? no If the answer is yes to any of the above questions, refer pt to PCP for follow-up. If pt is in need of PCP, place referral to establish care. FALL RISK ASSESSMENT: Fall risk was assessed by other clinic providers and is detailed in their visit notes. MENTAL STATUS EXAMINATION: Appearance: appropriate Interview behavior: cooperative Eye contact: good Attention: normal Orientation: time, place and person Mood: normal Affect: flat Speech: slowed and soft Thought process: normal; logical and goal-directed Cognitive impairment: not formally assessed, but the patient had the capacity to understand and respond appropriately to interview questions Delusions: none Hallucination: none Motor activity: normal Insight: fair Judgment: good Impulse control: intact Sleep: poor with DIMS (difficulty initiating & maintaining sleep), no REM, not restful, reduced energy quick especially on days after therapy or PD exercise program, no naps Appetite: decreased; protein ensure and half bagel for breakfast, wont' eat lunch no hungry, will eat dinner Energy level: fair Pain: yes; arthritis pain, hip pain, sleeps with ice pack most days, ibuprofen, tylenol CURRENT Pain: 8 Pain interference: 8 SOCIAL HISTORY: Pediatric History Patient Parents Not on file Other Topics Concern Not on file Social History Narrative Not on file The patient's family history is not on file. Childhood: Born and raised in [place] Living situation: currently lives with spouse, no kids Relationships/support: Good social support Education: high school diploma Occupation: insurance Trauma/abuse/DV history: no Legal issues/history: no Strengths: perserverance and personal intelligence Mormon considerations: none reported Cultural/ethnic considerations: none reported Language spoken at home: Maldivian LEARNING CONSIDERATIONS: Barriers to learning: (e.g., sensory impairments, reading difficulties, language) Patient: no Caregiver/family: no Readiness to learn: (e.g., eager, acceptance, non-acceptance, or refused) Patient: acceptance Caregiver/family: N/A Preferred learning method(s): (e.g., visual, auditory, written, demonstration/modeling) Patient: will assess over the course of treatment Caregiver/family: N/A Patient has been informed of the limits of confidentiality: [x] yes [] no Patient was informed of the no show/late cancellation policy (patients will be dismissed from the practice if they fail to keep three (3) appointments within a rolling 12-month period; this includes no shows and cancellations with less than 24 hours notice): [x] yes [] no Patient and/or patient s family (with consent for adult patient) has participated in developing treatment plan: [x] yes [] no CLINICAL IMPRESSION: Ramos Kim is a 77 y.o., , female who presents with progressive supranuclear palsy. The patient denied current anxiety or depression. Regarding cognition, she endorsed language difficulties including word-finding problems and trouble articulating her thoughts, but denied concerns related to her memory or executive functioning. The patient endorsed significant chronic pain that is impacting her daily functioning. We discussed the impact of chronic pain and ongoing physical symptoms related to Parkinson's disease. I provided psychoeducation on mood and cognitive changes that can occur in individuals with Parkinson's disease. I described the possible benefits of a neuropsychological assessment and provided information on the referral process. While, the patient nor her denied significant cognitive difficulties aside from language difficulties a referral to neuropsychology was placed to help better classify her current cognitive difficulties. Lastly, we discussed the patient's taking a more active role in managing the patient's medications, which the patient was agreeable toward. I encourage the patient to reach out via phone or MyChart with any questions. DIAGNOSIS: ICD-10-CM 1. Psychological and behavioral factors associated with disorders or diseases classified elsewhere F54 RECOMMENDATIONS/PLAN: 1. Level of care: None 2. Coordination of care: Collaboration and communication with referring provider and multidisciplinary clinic team 3. Further evaluations/referrals placed: Neuropsychological 4. Patient was encouraged to communicate via MyChart or call the clinic with worsening symptoms, side effects, questions, or concerns. Reviewed emergency protocol (call 911 or go to ED) and safety plan as needed. Graeme Najera, PhD Clinical Neuropsychologist [place] [facility] License #[id number] documented in this encounter [facility] 12-13-2022 Instructions Maggi Penaloza APRN-FIRE WATCHER - 12/13/2022 8:00 AM EDT Consider prisms for your glasses to help with double vision. Continue sinemet 25/100mg 1 tablet by mouth three times per day- no changes. May consider reducing if unclear benefit. Hydrate well. Will see what PT says about a new walker. documented in this encounter [facility] 11-22-2021 Discharge summary Date of Service 11/21/2021 - 11/22/2021 Discharge Diagnosis 1. Subdural hematoma (S06.5X9A - ICD-10-CM) Future Orders: CT Head or Brain w/o Contrast; *Est. 12/07/21, Routine, Right SDH, [id number], No, [facility], NEUROS by JULIANA HARRINGTON, JHON Neville 2. Fall (W19.XXXA - ICD-10-CM) Traumatic subdural hemorrhage without loss of consciousness, initial encounter (S06.5X0A - ICD-10-CM) Traumatic subdural hemorrhage without loss of consciousness, initial encounter (S06.5X0A - ICD-10-CM) Headache, unspecified (R51.9 - ICD-10-CM) Other fall on same level, initial encounter (W18.39XA - ICD-10-CM) Elevated white blood cell count, unspecified (D72.829 - ICD-10-CM) Abrasion, right knee, initial encounter (S80.211A - ICD-10-CM) Parkinson's disease (G20 - ICD-10-CM) Unspecified intracranial injury without loss of consciousness, initial encounter (S06.9X0A - ICD-10-CM) Laceration without foreign body of other part of head, initial encounter (S01.81XA - ICD-10-CM) Hospital Course 76-year-old female with medical history significant for recently diagnosed Parkinson's who was shopping at [employer] today when she lost her balance and fell to the ground, striking her head. She denies loss of consciousness. States that with her Parkinson's sometimes her feet get going and get ahead of her. She typically uses a cane for ambulation while at home, but was using a shopping cart at the time of her fall. She was taken by EMS to outside hospital, [facility] where a head CT was obtained, showing a small right acute temporal subdural hematoma with maximum thickness of 7 mm and no associated midline shift. Cervical CT unremarkable. Bilateral knee x-rays were also obtained and showed no acute findings. Patient was then transferred to [facility] for neurosurgical review and care. She had a small laceration over the right frontal temporal area that was repaired with suture closure. Dr. Dugan was notified of subdural hematoma findings, and accepted patient for admission under his primary service. Patient admitted to stepdown unit 5 S. No reported anticoagulant or antiplatelet use. This was confirmed by . She complained of right hip pain, and an hip x-ray was obtained. This showed no acute traumatic findings. Patient was evaluated initially in the ED. was at bedside. She had no neurological deficits. Denied headache. Dr. Dugan stated no plans for surgical intervention at this time, evacuation of SDH not currently needed. A repeat head CT was obtained 11/22/2021 for reevaluation of SDH. This showed improvement with decreased size of right SDH, now measuring 5 mm in maximum thickness. Previously 7mm. Still with no mass-effect or midline shift. Patient received 2 doses of IV hydralazine Hospital day #0. Overnight her BP improved and maintained less than 140 mmHg. Did not require additional antihypertensives. No prior hypertension history. Evaluated by PT/OT who recommended inpatient therapy. ASSOCIATE DESIGNER assisted with discharge planning. Arrangements made for patient to go to [facility] [place]. COVID swab obtained, negative. Patient remained neurologically intact. She was cleared for discharge on 11/22/2021, hospital day #1. Discharge instructions were provided to the patient. Arrangements were made for her to follow-up in [address] weeks with repeat head CT and office visit with in the neurosurgery office for reevaluation and suture removal as well as review of CT results. Patient in agreement with this plan. She was discharged in stable condition. Allergies NKA Procedures N/A Consults No qualifying data available. Imaging Results and Diagnostics CT Head or Brain w/o Contrast Result Date: November 22, 2021 Verified By: ROBBIN HARRINGTON, ROGER Weinberg CLINICAL STATEMENT: IMPRESSION: Right acute subdural hematoma as above. No prior images available to compare with, recommend short-term follow-up to ensure stability. Chronic microvascular ischemic changes with a left basal ganglia lacunar infarct, favored to be remote. I have personally reviewed the images of this examination, and agree with the resident's findings and interpretation. XR Hip Minimum 2 Views Right Result Date: November 21, 2021 Verified By: ALYSE CRENSHAW MD CLINICAL STATEMENT: IMPRESSION: No acute fracture or dislocation. I have reviewed this report and agree with the resident findings and interpretation. Objective Vitals and Measurements T: 36.6 C (Oral) TMIN: 36.6 C (Oral) TMAX: 37.0 C (Oral) HR: 99(Monitored) RR: 16 BP: 129/60 SpO2: 95% HT: 165.1 cm WT: 70 kg BMI: 25.68 Weight Dosing Weight: 70 kg (11/21/21) Dosing Weight: 70 kg (11/21/21) Patient is awake and alert. She is oriented to person, place, time and situation. Follows commands without difficulty. Moves all 4 extremities well. Has no lateralizing deficits or weakness. No pronator drift. Sensation is intact to light touch. Has no facial asymmetry. Tongue protrudes midline. Speech is clear/fluent. Has no dysarthria. PERRL. Reports a mild PORTILLO, states it is tolerable. No new neuro deficits. Abdomen is soft. Bowel sounds present x4. Tolerating p.o. intake, no nausea or vomiting. Regular heart rate and rhythm. S1-S2 present. No peripheral edema. Lungs are clear bilaterally. Even and regular respirations. On RA. Superficial abrasions to bilateral knees. Laceration at right mosque, closed with sutures. No bleeding or drainage. Site is without redness or swelling. Pending Labs and Studies N/A Code Status No qualifying data available. Admission Date 11/21/2021 Discharge Date 11/22/[address] at [facility] on 12/07/2021 at 9:15 AM. Please arrive to radiology department, ground-floor at the hospital by 9 AM for this test. After head CT is completed, then go to Dr. Dugan's office for follow-up appointment. You are scheduled to be seen by Dr. Dugan's nurse practitioner. Keep face laceration clean and dry at all times. Sutures will be removed at follow-up appointment if wound has healed properly. No aspirin, medications containing aspirin, or NSAID medication such as Motrin/ibuprofen, Aleve, Advil until cleared by neurosurgery. Avoid multivitamins until cleared by neurosurgery. No lifting greater than 10 pounds. Avoid strenuous activity, exercise, or activities that would increase risk of injuring head. Maintain fall precautions, as additional falls could cause brain bleed to worse. Notify neurosurgery office return to the ER promptly with any new or worsening symptoms, or subsequent falls. Call Dr. Dugan's office with any questions or concerns. Medications New Prescription docusate (Colace 100 mg oral capsule)1 cap by mouth two (2) times a day as needed Constipation. Changed acetaminophen (Tylenol 325 mg oral capsule)650 Milligram by mouth every 4 hours as needed Pain, scale 1-3. acetaminophen (Tylenol 8 Hour 650 mg oral tablet, extended release)2 tab(s) by mouth two (2) times a day as needed as needed for pain. Unchanged carbidopa-levodopa (carbidopa-levodopa 25 mg-100 mg oral tablet)1 tab(s) by mouth two (2) times a day. simvastatin (simvastatin 20 mg oral tablet)1 tab(s) by mouth once a day. Discontinued cholecalciferol (D3 50 mcg (2000 intl units) oral capsule)1 cap by mouth once a day. diclofenac topical (diclofenac 1% topical gel)2 gram(s) Topical four (4) times a day as needed Pain. ubiquinone (CoQ10 100 mg oral capsule)1 cap by mouth once a day. Follow Up Follow Up with JULIANA HARRINGTON, JHON Neville, Neurosurgery When 12/07/2021 09:15 AM EDT Why: Appointment is scheduled with Dr Dugan's nurse practitioner for re-evaluation, and review of head CT results. Where: [address] [id number] Follow Up with [facility], Skilled, Nurse to Nurse [phone]. When Within 1-2 days Follow Up with TONIA BETANCOURT When Within 1-2 days Where: [address] [place] [address] [phone] Business (1) Follow Up Appointments Transfer of Care OT - Ordered -- Reason for therapy: general debility, newly dx'ed Parkinson's, s/p fall with SDH, 11/22/21 10:30:00 EDT Transfer of Care PT - Ordered -- Reason for therapy: general debility, newly dx'ed Parkinson's, s/p fall with SDH, 11/22/21 10:30:00 EDT Follow Up Labs/Studies Discharge Labs No Follow-up Labs Discharge Studies No Follow-up Studies Discharge Diet Transfer of Care Diet - Ordered -- Type of Diet: Regular Diet, 11/22/21 10:30:00 EDT Discharge Activity Transfer of Care Activity - Ordered -- Activity As Tolerated, Fall Risk Precautions. No lifting greater than 10 lbs., 11/22/21 10:30:00 EDT Condition on Discharge Stable Readmission Risk/Palliative Score No qualifying data available. Discharge Disposition [facility] SNF Information Provided To Patient/family Digitally Signed by KIAN HEMPHILL on 11/22/2021 02:55 PM Digitally Signed by JHON DUGAN MD on 11/22/2021 03:53 PM [facility] 11-22-2021 History and physical note Date of Service 11/21/2021 Chief Complaint Acute SDH s/p fall. History of Present Illness 76-year-old female with medical history significant for Parkinson's, and previous left hip surgeries who was shopping at [employer] today when she lost her balance and fell to the ground, striking her head. She denies loss of consciousness. States that with her Parkinson's sometimes her feet get going and get ahead of her. She typically uses a cane for ambulation while at home, but was using a shopping cart at the time of her fall. She was taken by EMS to outside hospital, [facility] where a head CT was obtained, showing a small right acute temporal subdural hematoma with maximum thickness of 7 mm and no associated midline shift. Cervical CT unremarkable. Bilateral knee x-rays were also obtained and showed no acute findings. Patient was then transferred to [facility] for neurosurgical review and care. She had a small laceration over the right frontal temporal area that was repaired with suture closure. Dr. Dugan was notified of subdural hematoma findings, and has excepted patient for admission under his primary service. Patient will be admitted to stepdown unit 5 S. No reported anticoagulant or antiplatelet use. Patient is seen in the ED, her is present at the bedside. Patient denies headache currently. She is able to provide details of the event. She denies any dizziness or lightheadedness. Patient is fully awake and alert. Her speech is clear and fluent. She is moving all 4 extremities well. Has no lateralizing weakness. Review of Systems GENERAL: Denies any recent illnesses, infections, fever, chills, or night sweats. States she has not had no recent changes in her appetite or weight. SKIN: Denies skin complaints. Denies pruritus or rashes. HEENT: Denies headaches, or dizziness. Denies acute changes in visual acuity. Denies diplopia or blurred vision. Denies earaches, changes in hearing, or otorrhea. Denies rhinorrhea or sore throat. MS: Denies acute cervical, thoracic, or lumbar pain. Denies specific complaints of joint pain or swelling. Has some discomfort over her knees bilaterally secondary to superficial abrasions. RESPIRATORY: Denies shortness of breath, difficulty breathing or cough. CARDIOVASCULAR: Denies chest pain, pressure, palpitations. GI: Denies abdominal pain, nausea, vomiting. Denies changes in bowel movements/habits. : Denies dysuria or hematuria. NEUROLOGICAL: See HPI. Denies shooting extremity pains, numbness or tingling. Denies any new weakness. Physical Exam Vitals and Measurements T: 36.8 C (Oral) HR: 75 RR: 18 BP: 159/71 SpO2: 95% WT: 70 kg Weight Dosing Weight: 70 kg (11/21/21) General survey: 76-year-old female who appears congruent with her age. She is seen laying supine in bed. at bedside. Patient is cooperative with exam. She is in no acute distress. Skin: Skin is warm and dry. HEENT: Right frontal temporal laceration with suture repair. No acute bleeding or drainage from site. Patient has eyeglasses on. Extraocular movements are intact; no nystagmus or gaze deviation. Pupils are equal and round, and briskly reactive to light. 3 mm in size bilaterally. No otorrhea or rhinorrhea. Oral mucosa is pink and moist. MS: Neck is supple. Normal cervical range of motion without pain or pressure. Normal range of motion throughout. No pain with palpation of thoracic or lumbar spine. Cardiovascular: Regular heart rate and rhythm. Normal S1 and S2 present. No peripheral edema. Respiratory: Respirations even and unlabored. Lungs are clear bilaterally. No evidence of shortness of breath or difficulty breathing. She speaks in full sentences. Abdomen: Abdomen is soft, nontender and nondistended with active bowel sounds 4 quadrants. Peripheral vascular: Extremities are warm and without edema. Radial and pedal pulses are 2+ and symmetric. Neurological: Patient is awake, alert, and oriented x 4. Her speech is clear/fluent. No dysarthria. She makes good eye contact, engages well with examiner. Converses easily. Facial features are symmetric. Patient follows commands briskly and accurately. Moves all 4 extremities well. She has equal and strong motor strength in bilateral upper and lower extremities. No motor weakness. No lateralizing deficits. No pronator drift. Finger-nose testing is intact bilaterally. Light touch sensation is intact equally in both arms, legs, hands and feet. No sensory deficits. GCS is 15. Gait not tested. Lab Results 11/21 13:25 WBC: 14.1 H Hgb: 15.6 Hct: 46.9 H Platelet: 300 Neutrophil %: 73.9 Protime: 10.7 PT International Ratio: 0.9 Glucose Level: 87 Sodium Level: 141 Potassium Level: 3.6 BUN: 15.0 Creatinine Lvl (s): 0.76 Imaging Results and Diagnostics See HPI. EKG EC11/21/21: SINUS RHYTHM...normal P axis, V-rate 50- 99 ATRIAL PREMATURE COMPLEXES...SV complexes w/ short R-R intvls LVH BY VOLTAGE...R >1.10 in aVL INFERIOR INFARCT, OLD...Q >35mS, II III aVF Electronic Signature: BHARGAV KENDRICK DO 11/21/2021 14:13:51 Assessment/Plan Mild TBI acute small SDH s/p accidental fall 76-year-old female with history of Parkinson's, who lost her balance while shopping at [employer], and fell to the ground striking her head. Denied LOC, or syncopal event. Taken to [facility] via EMS and head CT showed a small acute right temporal subdural hematoma, measuring 7 mm in maximum thickness. No associated midline shift. Other work-up including a cervical CT and bilateral knee x-rays were negative for acute injuries. Patient was transferred to [facility] emergency department. Small laceration over right frontal temporal area closed with sutures. Patient accepted by Dr. Dugan for admission to stepdown unit. Discussed case with him. Dr. Dugan has no plans for surgical intervention at this time, evacuation of SDH is not currently needed. Plan instead is to monitor patient, and monitor neuro status. Will repeat head CT tomorrow morning for reevaluation of SDH. If patient's neuro status changes acutely prior to planned repeat head CT tomorrow morning, then will obtain a more urgent head CT for reevaluation. Patient denies use of any anticoagulant or antiplatelet medications. confirms this information is correct. Keep systolic blood pressure less than 140 mmHg. Notify neurosurgery with any acute changes or concerns. Problem List/Past Medical History Ongoing No qualifying data Historical No qualifying data Parkinson's Procedure/Surgical History Left hip surgery x2 Medications No qualifying data available Allergies NKA Social History Patient is and lives at home with her . Family History Mother- CVA, [place] Father- Cancer (unknown type) Sister- Pulmonary disease Brother- CVA Immunizations No qualifying data available. Code Status No qualifying data available. Digitally Signed by KIAN HEMPHILL on 11/21/2021 04:18 PM [facility] 11-22-2021 Note Discharge Instructions Thank you for allowing [facility] to assist you with your healthcare needs. The following is important discharge information regarding your hospital visit. Your Care Team TONIA BETANCOURT MD Your Diagnosis Subdural hematoma Fall What to do next Instructions From Your Doctor Head CT at [facility] on 12/07/2021 at 9:15 AM. Please arrive to radiology department, ground-floor at the hospital by 9 AM for this test. After head CT is completed, then go to Dr. Dugan's office for follow-up appointment. You are scheduled to be seen by Dr. Dugan's nurse practitioner. Keep face laceration clean and dry at all times. Sutures will be removed at follow-up appointment if wound has healed properly. No aspirin, medications containing aspirin, or NSAID medication such as Motrin/ibuprofen, Aleve, Advil until cleared by neurosurgery. Avoid multivitamins until cleared by neurosurgery. No lifting greater than 10 pounds. Avoid strenuous activity, exercise, or activities that would increase risk of injuring head. Maintain fall precautions, as additional falls could cause brain bleed to worse. Notify neurosurgery office return to the ER promptly with any new or worsening symptoms, or subsequent falls. Call Dr. Chew's office with any questions or concerns. Scheduled Follow-Up Appointments Appointment Type When Where Contact InformationCT Head or Brain w/o Contrast 12/07/2021 09:15 AM EDT Radiology NS OV 12/07/2021 10:00 AM EDT AH Neurosurgery [address] [place] [address] Follow Up Appointments Follow Up with JULIANA HARRINGTON, JHON Neville, Neurosurgery When 12/07/2021 09:15 AM EDT Why: Appointment is scheduled with Dr Dugan's nurse practitioner for re-evaluation, and review of head CT results. Where: [address] [place] [address] [id number] Follow Up with [facility], Skilled, Nurse to Nurse [phone]. When Within 1-2 days Follow Up with TONIA BETANCOURT When Within 1-2 days Where: [address] [place] [address] [phone] Business (1) The Following Activity and Diet Have Been Ordered for You Transfer of Care Activity - Ordered -- Activity As Tolerated, Fall Risk Precautions. No lifting greater than 10 lbs., 11/22/21 10:30:00 EDT Transfer of Care Diet - Ordered -- Type of Diet: Regular Diet, 11/22/21 10:30:00 EDT The Following Equipment Has Been Ordered for You Discharge Home Equipment Transfer of Care Wound Care - Ordered -- Head, right, Keep laceration site clean and dry at all times. Sutures will need removed in 10-14 days., 11/22/21 10:30:00 EDT The Following Treatments Have Been Ordered for You Discharge Labs No qualifying data available. Discharge Radiology No qualifying data available. Other Therapies Transfer of Care OT - Ordered -- Reason for therapy: general debility, newly dx'ed Parkinson's, s/p fall with SDH, 11/22/21 10:30:00 EDT Transfer of Care PT - Ordered -- Reason for therapy: general debility, newly dx'ed Parkinson's, s/p fall with SDH, 11/22/21 10:30:00 EDT Post Acute Orders Transfer of Care Admission Level of Care - Ordered -- Level of Care SNF, 11/22/21 10:31:08 EDT Transfer of Care Code Status - Ordered -- Full Code, Constant Order Transfer of Care Communication Order - Ordered -- Expect less than 30 day stay., 11/22/21 11:02:13 EDT Transfer of Care Orders Electronically Signed By - Ordered -- 11/22/21 10:30:00 EDT, JULIANA HARRINGTON, JHON Neville Transfer of Care Prognosis - Ordered -- Good, Patient Aware: Yes Transfer of Care Rehab Potential - Ordered -- Rehab potential good, 11/22/21 10:31:08 EDT Someone Will Contact You Regarding These Home Health Referrals No home referrals have been ordered for you. No one will call you. Allergies NKA Medications Please ask your primary doctor or pharmacist before taking any other medication not listed, including over the counter drugs, herbal medications, vitamins and or supplements as they may interact with your home medications. What How Much When Instructions Last Dose New docusate (Colace 100 mg oral capsule) 1 cap by mouth Two (2) times a day as needed for Constipation Changed acetaminophen (Tylenol 325 mg oral capsule) 650 Milligram by mouth Every 4 hours as needed for Pain, scale 1-3 Changed acetaminophen (Tylenol 8 Hour 650 mg oral tablet, extended release) 2 tab(s) by mouth Two (2) times a day as needed for as needed for pain Unchanged carbidopa-levodopa (carbidopa-levodopa 25 mg-100 mg oral tablet) 1 tab(s) by mouth Two (2) times a day Unchanged simvastatin (simvastatin 20 mg oral tablet) 1 tab(s) by mouth Once a day What How Much When Comments Stop Taking cholecalciferol (D3 50 mcg (2000 intl units) oral capsule) 1 cap by mouth Once a day Stop Taking diclofenac topical (diclofenac 1% topical gel) 2 gram(s) Topical Four (4) times a day as needed for Pain Stop Taking ubiquinone (CoQ10 100 mg oral capsule) 1 cap by mouth Once a day Please take this list to your next doctor s visit. Bring all medications you take, including over the counter medications, herbals and other supplements with you to your doctor s visit. Patients and families are reminded to discard old lists and to update any records with all medication providers or retail pharmacies. Education Materials Subdural Hematoma A subdural hematoma is a collection of blood between the brain and its outer covering (dura). As the amount of blood increases, pressure builds on the brain. There are two types of subdural hematomas: Acute. This type develops shortly after a hard, direct hit to the head and causes blood to collect very quickly. This is a medical emergency. If it is not diagnosed and treated quickly, it can lead to severe brain injury or . Chronic. This is when bleeding develops more slowly, over weeks or months. In some cases, this type does not cause symptoms. What are the causes? This condition is caused by bleeding (hemorrhage) from a broken (ruptured) blood vessel. In most cases, a blood vessel ruptures and bleeds because of a head injury, such as from a hard, direct hit. Head injuries can happen in car accidents, falls, assaults, or while playing sports. In rare cases, a hemorrhage can happen without a known cause (spontaneously), especially if you take blood thinners (anticoagulants). What increases the risk? This condition is more likely to develop in: Older people. Infants. People who take blood thinners. People who have head injuries. People who abuse alcohol. What are the signs or symptoms? Symptoms of this condition can vary depending on the size of the hematoma. Symptoms can be mild, severe, or life-threatening. They include: Headaches. Nausea or vomiting. Changes in vision, such as double vision or loss of vision. Changes in speech or trouble understanding what people say. Loss of balance or trouble walking. Weakness, numbness, or tingling in the arms or legs, especially on one side of the body. Seizures. Change in personality. Increased sleepiness. Memory loss. Loss of consciousness. Coma. Symptoms of acute subdural hematoma can develop over minutes or hours. Symptoms of chronic subdural hematoma may develop over weeks or months. How is this diagnosed? This condition is diagnosed based on the results of: A physical exam. Tests of strength, reflexes, coordination, senses, manner of walking (gait), and facial and eye movements (neurological exam). Imaging tests, such as an MRI or a CT scan. How is this treated? Treatment for this condition depends on the type of hematoma and how severe it is. Treatment for acute hematoma may include: Emergency surgery to drain blood or remove a blood clot. Medicines that help the body get rid of excess fluids (diuretics). These may help to reduce pressure in the brain. Assisted breathing (ventilation). Treatment for chronic hematoma may include: Observation and bed rest at the hospital. Surgery. If you take blood thinners, you may need to stop taking them for a short time. You may also be given anti-seizure (anticonvulsant) medicine. Sometimes, no treatment is needed for chronic subdural hematoma. Follow these instructions at home: Activity Avoid situations where you could injure your head again, such as in competitive sports, downhill snow sports, and horseback riding. Do not do these activities until your health care provider approves. ? Wear protective gear, such as a helmet, when participating in activities such as biking or contact sports. Avoid too much visual stimulation while recovering. This means limiting how much you read and limiting your screen time on a smart phone, tablet, computer, or TV. Rest as told by your health care provider. Rest helps the brain heal. Try to avoid activities that cause physical or mental stress. Return to work or school as told by your health care provider. Do not lift anything that is heavier than 5 lb (2.3 kg), or the limit you are told, until your health care provider says that it is safe. Do not drive, ride a bike, or use heavy machinery until your health care provider approves. Always wear your seat belt when you are in a motor vehicle. Alcohol use Do not drink alcohol if your health care provider tells you not to drink. If you drink alcohol, limit how much you use to: ? 0 1 drink a day for women. ? 0 2 drinks a day for men. General instructions Monitor your symptoms, and ask people around you to do the same. Recovery from brain injuries varies. Talk with your health care provider about what to expect. Take izyk-wgw-bgzpifh and prescription medicines only as told by your health care provider. Do not take blood thinners or NSAIDs unless your health care provider approves. These include aspirin, ibuprofen, naproxen, and warfarin. Keep your home environment safe to reduce the risk of falling. Keep all follow-up visits as told by your health care provider. This is important. Where to find more information [place] of Neurological Disorders and Stroke: www.ninds.nih.gov [place] [employer] Neu[employer] (AAN): www.aan.com Brain Injury Association of [place]: www.biausa.org Get help right away if you: Are taking blood thinners and you fall or you experience minor trauma to the head. If you take any blood thinners, even a very small injury can cause a subdural hematoma. Have a bleeding disorder and you fall or you experience minor trauma to the head. Develop any of the following symptoms after a head injury: ? Clear fluid draining from your nose or ears. ? Nausea or vomiting. ? Changes in speech or trouble understanding what people say. ? Seizures. ? Drowsiness or a decrease in alertness. ? Double vision. ? Numbness or inability to move (paralysis) in any part of your body. ? Difficulty walking or poor coordination. ? Difficulty thinking. ? Confusion or forgetfulness. ? Personality changes. ? Irrational or aggressive behavior. These symptoms may represent a serious problem that is an emergency. Do not wait to see if the symptoms will go away. Get medical help right away. Call your local emergency services (911 in the [place] Do not drive yourself to the hospital. Summary A subdural hematoma is a collection of blood between the brain and its outer covering (dura). Treatment for this condition depends on what type of subdural hematoma you have and how severe it is. Symptoms can vary from mild to severe to life-threatening. Monitor your symptoms, and ask others around you to do the same. This information is not intended to replace advice given to you by your health care provider. Make sure you discuss any questions you have with your health care provider. Document Released: 01/05/2005 Document Revised: 01/19/2019 Document Reviewed: 01/19/2019 [employer] Patient Education 2020 [employer] Additional Information VACCINATE! IT SAVES LIVES! Members of the community who have not yet received the COVID-19 vaccine and would like to receive it can visit one of [facility] vaccine clinics. There are many vaccine clinic locations within the [facility]. For locations and available times, please visit [email or web address]/. It is important to note that some COVID mobile vaccine clinics are held outdoors and may be canceled in rainy or stormy conditions. To learn more about pediatric vaccinations (ages 5-11), we invite you to visit the [facility] webpage. [email or web address] [email or web address] To learn more about the COVID-19 vaccine, we invite you to visit the [facility] website for a list of frequently asked questions. [email or web address]/[email or web address]/vAni nq-ngg-Wyhomlcl/sdnkl-Jzutcyu-Hbv quently_[email or web address]-Questions.pdf [facility] Patient Portal Access Instructions: Stay connected with your healthcare team and access your personal medical information anytime with the [facility] Patient Portal.If you would like a full copy of your medical records, please contact the [facility] Medical Records Department, Saturday through Saturday between 8a.m. and 4:30p.m. Please follow the directions below to access the portal: 1.Access the email account you provided upon registration to the [facility].2.Look for an invitation email from [facility].3.Open the email and access the invitation link: Accept Invitation to [facility]4.Fill in the required rain to create your account. Sign into [email or web address] with your username and password that you created in the above steps to stay up to date. You can then view a summary of results, a summary of your visits, and the ability to download your summaries to your computer or send the information securely to a physician. Remember that your healthcare information is confidential, so carefully consider who you will allow to register on the [facility] Patient Portal for access to your information. You can also access the [facility] Patient Portal on the [employer]. Simply click on Health Records under Health Data and then click on the [employer] logo. HOW TO SAFELY DISPOSE OF PRESCRIPTION MEDICATIONS Please use one of the following methods to safely dispose of your unused medications. 1.Use a drug disposal kit: the drug disposal pouch allows you to safely discard your old and unused drugs. Ask your nurse to give you one when you are discharged.2.Visit a local take-back location: Many local pharmacies and police departments have programs that collect old and unwanted prescription drugs. Call your local pharmacy or go to http://bit.ly/6O0Lj8u to find one close to you.3.Make use of household items: Use cat litter or old coffee grounds to dispose medications if other options are not available. Mix your drugs with these household products, seal them in an airtight container and throw it into the garbage. Call [facility]: [phone] to be sure your drugs can be disposed of in this way. Some medicines may require a different approach.4.Never flush your medications down the toilet. IF YOU HAVE BEEN PRESCRIBED AN OPIOID FOR PAIN If you have been prescribed an opioid (such as hydrocodone, oxycodone or morphine), it is critical to understand the possible side effects and risks of opioid pain medications. Even when taken as directed, opioids can have several side effects including: Tolerance, meaning you might need to take more of a medication for the same pain relief. Nausea, vomiting and/or constipation. Sleepiness, dizziness, dry mouth, confusion, depression or itching. Physical dependence, meaning you have withdrawal symptoms when a medication is stopped, can develop within a few days. KNOW YOUR RESPONSIBILITIES It is important to know exactly how much and how often to take the opioid pain medications you are prescribed. Never take opioids in higher amounts or more often than prescribed. Do not combine opioids with alcohol or other drugs that cause drowsiness, such as benzodiazepines, also known as benzos, including diazepam and alprazolam, muscle relaxants or sleep aids. Never sell or share prescription opioids. This is illegal. Store opioids in a secure place and out of reach of others (including children, family, friends and visitors). The last page of this document has been signed and retained as a CHART COPY. Signatures Patient Education Materials Subdural Hematoma Medication Leaflets My discharge plan and instructions have been reviewed and explained to me and IVITO JEANNE understand my current condition and have read and understand these discharge instructions. I have received a written copy of the plan/instructions. If I have questions, I am aware that I should contact my doctor. 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 As the amount of blood increases, pressure builds on the brain. There are two types of subdural hematomas: Acute. This type develops shortly after a hard, direct hit to the head and causes blood to collect very quickly. This is a medical emergency. If it is not diagnosed and treated quickly, it can lead to severe brain injury or . Chronic. This is when bleeding develops more slowly, over weeks or months. In some cases, this type does not cause symptoms. What are the causes? This condition is caused by bleeding (hemorrhage) from a broken (ruptured) blood vessel. In most cases, a blood vessel ruptures and bleeds because of a head injury, such as from a hard, direct hit. Head injuries can happen in car accidents, falls, assaults, or while playing sports. In rare cases, a hemorrhage can happen without a known cause (spontaneously), especially if you take blood thinners (anticoagulants). What increases the risk? This condition is more likely to develop in: Older people. Infants. People who take blood thinners. People who have head injuries. People who abuse alcohol. What are the signs or symptoms? Symptoms of this condition can vary depending on the size of the hematoma. Symptoms can be mild, severe, or life-threatening. They include: Headaches. Nausea or vomiting. Changes in vision, such as double vision or loss of vision. Changes in speech or trouble understanding what people say. Loss of balance or trouble walking. Weakness, numbness, or tingling in the arms or legs, especially on one side of the body. Seizures. Change in personality. Increased sleepiness. Memory loss. Loss of consciousness. Coma. Symptoms of acute subdural hematoma can develop over minutes or hours. Symptoms of chronic subdural hematoma may develop over weeks or months. How is this diagnosed? This condition is diagnosed based on the results of: A physical exam. Tests of strength, reflexes, coordination, senses, manner of walking (gait), and facial and eye movements (neurological exam). Imaging tests, such as an MRI or a CT scan. How is this treated? Treatment for this condition depends on the type of hematoma and how severe it is. Treatment for acute hematoma may include: Emergency surgery to drain blood or remove a blood clot. Medicines that help the body get rid of excess fluids (diuretics). These may help to reduce pressure in the brain. Assisted breathing (ventilation). Treatment for chronic hematoma may include: Observation and bed rest at the hospital. Surgery. If you take blood thinners, you may need to stop taking them for a short time. You may also be given anti-seizure (anticonvulsant) medicine. Sometimes, no treatment is needed for chronic subdural hematoma. Follow these instructions at home: Activity Avoid situations where you could injure your head again, such as in competitive sports, downhill snow sports, and horseback riding. Do not do these activities until your health care provider approves. ?Wear protective gear, such as a helmet, when participating in activities such as biking or contact sports. Avoid too much visual stimulation while recovering. This means limiting how much you read and limiting your screen time on a smart phone, tablet, computer, or TV. Rest as told by your health care provider. Rest helps the brain heal. Try to avoid activities that cause physical or mental stress. Return to work or school as told by your health care provider. Do not lift anything that is heavier than 5 lb (2.3 kg), or the limit you are told, until your health care provider says that it is safe. Do not drive, ride a bike, or use heavy machinery until your health care provider approves. Always wear your seat belt when you are in a motor vehicle. Alcohol use Do not drink alcohol if your health care provider tells you not to drink. If you drink alcohol, limit how much you use to: ?0 1 drink a day for women. ?0 2 drinks a day for men. General instructions Monitor your symptoms, and ask people around you to do the same. Recovery from brain injuries varies. Talk with your health care provider about what to expect. Take lzbg-tgl-gsgsvxn and prescription medicines only as told by your health care provider. Do not take blood thinners or NSAIDs unless your health care provider approves. These include aspirin, ibuprofen, naproxen, and warfarin. Keep your home environment safe to reduce the risk of falling. Keep all follow-up visits as told by your health care provider. This is important. Where to find more information [place] of Neurological Disorders and Stroke: www.ninds.nih.gov [place] [employer] Neu[employer] (AAN): www.aan.com Brain Injury Association of [place]: www.biausa.org Get help right away if you: Are taking blood thinners and you fall or you experience minor trauma to the head. If you take any blood thinners, even a very small injury can cause a subdural hematoma. Have a bleeding disorder and you fall or you experience minor trauma to the head. Develop any of the following symptoms after a head injury: ?Clear fluid draining from your nose or ears. ?Nausea or vomiting. ?Changes in speech or trouble understanding what people say. ?Seizures. ?Drowsiness or a decrease in alertness. ?Double vision. ?Numbness or inability to move (paralysis) in any part of your body. ?Difficulty walking or poor coordination. ?Difficulty thinking. ?Confusion or forgetfulness. ?Personality changes. ?Irrational or aggressive behavior. These symptoms may represent a serious problem that is an emergency. Do not wait to see if the symptoms will go away. Get medical help right away. Call your local emergency services (911 in the [place] Do not drive yourself to the hospital. Summary A subdural hematoma is a collection of blood between the brain and its outer covering (dura). Treatment for this condition depends on what type of subdural hematoma you have and how severe it is. Symptoms can vary from mild to severe to life-threatening. Monitor your symptoms, and ask others around you to do the same. This information is not intended to replace advice given to you by your health care provider. Make sure you discuss any questions you have with your health care provider. Document Released: 01/05/2005 Document Revised: 01/19/2019 Document Reviewed: 01/19/2019 [employer] Patient Education 2020 [employer] Follow Up Care 11/21/2021 12:58:26 With:JULIANA HARRINGTON, JHON Neville, Neurosurgery Address: [address] [place] [phone] When:12/07/2021 09:15:00 Comments:Appointment is scheduled with Dr Dugan's nurse practitioner for re-evaluation, and review of head CT results. With:[facility], [facility], Nurse to Nurse [phone]. Address:Unknown When:1-2 days With:TONIA BETANCOURT Address: [address] [place] [phone] Business (1) When:1-2 days [facility] 11-22-2021 Note Discharge Instructions Thank you for allowing [facility] to assist you with your healthcare needs. The following is important discharge information regarding your hospital visit. Your Care Team TONIA BETANCOURT MD Your Diagnosis Subdural hematoma Fall What to do next Instructions From Your Doctor Head CT at [facility] on 12/07/2021 at 9:15 AM. Please arrive to radiology department, ground-floor at the hospital by 9 AM for this test. After head CT is completed, then go to Dr. Dugan's office for follow-up appointment. You are scheduled to be seen by Dr. Dugan's nurse practitioner. Keep face laceration clean and dry at all times. Sutures will be removed at follow-up appointment if wound has healed properly. No aspirin, medications containing aspirin, or NSAID medication such as Motrin/ibuprofen, Aleve, Advil until cleared by neurosurgery. Avoid multivitamins until cleared by neurosurgery. No lifting greater than 10 pounds. Avoid strenuous activity, exercise, or activities that would increase risk of injuring head. Maintain fall precautions, as additional falls could cause brain bleed to worse. Notify neurosurgery office return to the ER promptly with any new or worsening symptoms, or subsequent falls. Call Dr. Chew's office with any questions or concerns. Scheduled Follow-Up Appointments Appointment Type When Where Contact InformationCT Head or Brain w/o Contrast 12/07/2021 09:15 AM EDT Radiology NS OV 12/07/2021 10:00 AM EDT Neurosurgery [address] [place] [address] Follow Up Appointments Follow Up with JULIANA HARRINGTON, JHON Neville, Neurosurgery When 12/07/2021 09:15 AM EDT Why: Appointment is scheduled with Dr Dugan's nurse practitioner for re-evaluation, and review of head CT results. Where: [address] [place] [address] [phone] Follow Up with [facility], [facility], Nurse to Nurse [phone]. When Within 1-2 days Follow Up with TONIA BETANCOURT When Within 1-2 days Where: [address] [place] [address] [phone] Business (1) The Following Activity and Diet Have Been Ordered for You Transfer of Care Activity - Ordered -- Activity As Tolerated, Fall Risk Precautions. No lifting greater than 10 lbs., 11/22/21 10:30:00 EDT Transfer of Care Diet - Ordered -- Type of Diet: Regular Diet, 11/22/21 10:30:00 EDT The Following Equipment Has Been Ordered for You Discharge Home Equipment Transfer of Care Wound Care - Ordered -- Head, right, Keep laceration site clean and dry at all times. Sutures will need removed in 10-14 days., 11/22/21 10:30:00 EDT The Following Treatments Have Been Ordered for You Discharge Labs No qualifying data available. Discharge Radiology No qualifying data available. Other Therapies Transfer of Care OT - Ordered -- Reason for therapy: general debility, newly dx'ed Parkinson's, s/p fall with SDH, 11/22/21 10:30:00 EDT Transfer of Care PT - Ordered -- Reason for therapy: general debility, newly dx'ed Parkinson's, s/p fall with SDH, 11/22/21 10:30:00 EDT Post Acute Orders Transfer of Care Admission Level of Care - Ordered -- Level of Care SNF, 11/22/21 10:31:08 EDT Transfer of Care Code Status - Ordered -- Full Code, Constant Order Transfer of Care Communication Order - Ordered -- Expect less than 30 day stay., 11/22/21 11:02:13 EDT Transfer of Care Orders Electronically Signed By - Ordered -- 11/22/21 10:30:00 EDT, JULIANA HARRINGTON, JHON Neville Transfer of Care Prognosis - Ordered -- Good, Patient Aware: Yes Transfer of Care Rehab Potential - Ordered -- Rehab potential good, 11/22/21 10:31:08 EDT Someone Will Contact You Regarding These Home Health Referrals No home referrals have been ordered for you. No one will call you. Allergies NKA Medications Please ask your primary doctor or pharmacist before taking any other medication not listed, including over the counter drugs, herbal medications, vitamins and or supplements as they may interact with your home medications. What How Much When Instructions Last Dose New docusate (Colace 100 mg oral capsule) 1 cap by mouth Two (2) times a day as needed for Constipation Changed acetaminophen (Tylenol 325 mg oral capsule) 650 Milligram by mouth Every 4 hours as needed for Pain, scale 1-3 Changed acetaminophen (Tylenol 8 Hour 650 mg oral tablet, extended release) 2 tab(s) by mouth Two (2) times a day as needed for as needed for pain Unchanged carbidopa-levodopa (carbidopa-levodopa 25 mg-100 mg oral tablet) 1 tab(s) by mouth Two (2) times a day Unchanged simvastatin (simvastatin 20 mg oral tablet) 1 tab(s) by mouth Once a day What How Much When Comments Stop Taking cholecalciferol (D3 50 mcg (2000 intl units) oral capsule) 1 cap by mouth Once a day Stop Taking diclofenac topical (diclofenac 1% topical gel) 2 gram(s) Topical Four (4) times a day as needed for Pain Stop Taking ubiquinone (CoQ10 100 mg oral capsule) 1 cap by mouth Once a day Please take this list to your next doctor s visit. Bring all medications you take, including over the counter medications, herbals and other supplements with you to your doctor s visit. Patients and families are reminded to discard old lists and to update any records with all medication providers or retail pharmacies. Education Materials Subdural Hematoma A subdural hematoma is a collection of blood between the brain and its outer covering (dura). As the amount of blood increases, pressure builds on the brain. There are two types of subdural hematomas: Acute. This type develops shortly after a hard, direct hit to the head and causes blood to collect very quickly. This is a medical emergency. If it is not diagnosed and treated quickly, it can lead to severe brain injury or . Chronic. This is when bleeding develops more slowly, over weeks or months. In some cases, this type does not cause symptoms. What are the causes? This condition is caused by bleeding (hemorrhage) from a broken (ruptured) blood vessel. In most cases, a blood vessel ruptures and bleeds because of a head injury, such as from a hard, direct hit. Head injuries can happen in car accidents, falls, assaults, or while playing sports. In rare cases, a hemorrhage can happen without a known cause (spontaneously), especially if you take blood thinners (anticoagulants). What increases the risk? This condition is more likely to develop in: Older people. Infants. People who take blood thinners. People who have head injuries. People who abuse alcohol. What are the signs or symptoms? Symptoms of this condition can vary depending on the size of the hematoma. Symptoms can be mild, severe, or life-threatening. They include: Headaches. Nausea or vomiting. Changes in vision, such as double vision or loss of vision. Changes in speech or trouble understanding what people say. Loss of balance or trouble walking. Weakness, numbness, or tingling in the arms or legs, especially on one side of the body. Seizures. Change in personality. Increased sleepiness. Memory loss. Loss of consciousness. Coma. Symptoms of acute subdural hematoma can develop over minutes or hours. Symptoms of chronic subdural hematoma may develop over weeks or months. How is this diagnosed? This condition is diagnosed based on the results of: A physical exam. Tests of strength, reflexes, coordination, senses, manner of walking (gait), and facial and eye movements (neurological exam). Imaging tests, such as an MRI or a CT scan. How is this treated? Treatment for this condition depends on the type of hematoma and how severe it is. Treatment for acute hematoma may include: Emergency surgery to drain blood or remove a blood clot. Medicines that help the body get rid of excess fluids (diuretics). These may help to reduce pressure in the brain. Assisted breathing (ventilation). Treatment for chronic hematoma may include: Observation and bed rest at the hospital. Surgery. If you take blood thinners, you may need to stop taking them for a short time. You may also be given anti-seizure (anticonvulsant) medicine. Sometimes, no treatment is needed for chronic subdural hematoma. Follow these instructions at home: Activity Avoid situations where you could injure your head again, such as in competitive sports, downhill snow sports, and horseback riding. Do not do these activities until your health care provider approves. ? Wear protective gear, such as a helmet, when participating in activities such as biking or contact sports. Avoid too much visual stimulation while recovering. This means limiting how much you read and limiting your screen time on a smart phone, tablet, computer, or TV. Rest as told by your health care provider. Rest helps the brain heal. Try to avoid activities that cause physical or mental stress. Return to work or school as told by your health care provider. Do not lift anything that is heavier than 5 lb (2.3 kg), or the limit you are told, until your health care provider says that it is safe. Do not drive, ride a bike, or use heavy machinery until your health care provider approves. Always wear your seat belt when you are in a motor vehicle. Alcohol use Do not drink alcohol if your health care provider tells you not to drink. If you drink alcohol, limit how much you use to: ? 0 1 drink a day for women. ? 0 2 drinks a day for men. General instructions Monitor your symptoms, and ask people around you to do the same. Recovery from brain injuries varies. Talk with your health care provider about what to expect. Take dwyf-oxv-uyshbod and prescription medicines only as told by your health care provider. Do not take blood thinners or NSAIDs unless your health care provider approves. These include aspirin, ibuprofen, naproxen, and warfarin. Keep your home environment safe to reduce the risk of falling. Keep all follow-up visits as told by your health care provider. This is important. Where to find more information [place] [employer] [place] of Neurological Disorders and Stroke: www.ninds.nih.gov [place] [employer] Neu[employer] (AAN): www.aan.com Brain Injury Association of [place]: www.biausa.org Get help right away if you: Are taking blood thinners and you fall or you experience minor trauma to the head. If you take any blood thinners, even a very small injury can cause a subdural hematoma. Have a bleeding disorder and you fall or you experience minor trauma to the head. Develop any of the following symptoms after a head injury: ? Clear fluid draining from your nose or ears. ? Nausea or vomiting. ? Changes in speech or trouble understanding what people say. ? Seizures. ? Drowsiness or a decrease in alertness. ? Double vision. ? Numbness or inability to move (paralysis) in any part of your body. ? Difficulty walking or poor coordination. ? Difficulty thinking. ? Confusion or forgetfulness. ? Personality changes. ? Irrational or aggressive behavior. These symptoms may represent a serious problem that is an emergency. Do not wait to see if the symptoms will go away. Get medical help right away. Call your local emergency services (911 in the [place] Do not drive yourself to the hospital. Summary A subdural hematoma is a collection of blood between the brain and its outer covering (dura). Treatment for this condition depends on what type of subdural hematoma you have and how severe it is. Symptoms can vary from mild to severe to life-threatening. Monitor your symptoms, and ask others around you to do the same. This information is not intended to replace advice given to you by your health care provider. Make sure you discuss any questions you have with your health care provider. Document Released: 01/05/2005 Document Revised: 01/19/2019 Document Reviewed: 01/19/2019 [employer] Patient Education 2020 [employer] Additional Information VACCINATE! IT SAVES LIVES! Members of the community who have not yet received the COVID-19 vaccine and would like to receive it can visit one of [facility] vaccine clinics. There are many vaccine clinic locations within the [facility]. For locations and available times, please visit [email or web address].[place].gov/. It is important to note that some COVID mobile vaccine clinics are held outdoors and may be canceled in rainy or stormy conditions. To learn more about pediatric vaccinations (ages 5-11), we invite you to visit the [facility] webpage. https://www.akronSprout Foodss.org/pa ges/8886-Daton-Hpxixtlzswj-Freque kvyx-Ckrrd-Cvxlktldw.html To learn more about the COVID-19 vaccine, we invite you to visit the [facility] website for a list of frequently asked questions. [email or web address] Lifestyle/assets/Avni cs-rux-Psqhcfrh/jtpyp-Lxscrsw-Jib quently_Asked-Questions.pdf [facility] Patient Portal Access Instructions: Stay connected with your healthcare team and access your personal medical information anytime with the [facility] Patient Portal.If you would like a full copy of your medical records, please contact the [facility] Medical Records Department, Saturday through Saturday between 8a.m. and 4:30p.m. Please follow the directions below to access the portal: 1.Access the email account you provided upon registration to the [facility].2.Look for an invitation email from [facility].3.Open the email and access the invitation link: Accept Invitation to [facility].Fill in the required rain to create your account. Sign into [email or web address] with your username and password that you created in the above steps to stay up to date. You can then view a summary of results, a summary of your visits, and the ability to download your summaries to your computer or send the information securely to a physician. Remember that your healthcare information is confidential, so carefully consider who you will allow to register on the [facility] Patient Portal for access to your information. You can also access the [facility] Patient Portal on the G-cluster. Simply click on Health Records under Health Data and then click on the Arianna logo. HOW TO SAFELY DISPOSE OF PRESCRIPTION MEDICATIONS Please use one of the following methods to safely dispose of your unused medications. 1.Use a drug disposal kit: the drug disposal pouch allows you to safely discard your old and unused drugs. Ask your nurse to give you one when you are discharged.2.Visit a local take-back location: Many local pharmacies and police departments have programs that collect old and unwanted prescription drugs. Call your local pharmacy or go to http://ParaShoot.AnaBios/8V5Cp3w to find one close to you.3.Make use of household items: Use cat litter or old coffee grounds to dispose medications if other options are not available. Mix your drugs with these household products, seal them in an airtight container and throw it into the garbage. Call [facility]: [phone] to be sure your drugs can be disposed of in this way. Some medicines may require a different approach.4.Never flush your medications down the toilet. IF YOU HAVE BEEN PRESCRIBED AN OPIOID FOR PAIN If you have been prescribed an opioid (such as hydrocodone, oxycodone or morphine), it is critical to understand the possible side effects and risks of opioid pain medications. Even when taken as directed, opioids can have several side effects including: Tolerance, meaning you might need to take more of a medication for the same pain relief. Nausea, vomiting and/or constipation. Sleepiness, dizziness, dry mouth, confusion, depression or itching. Physical dependence, meaning you have withdrawal symptoms when a medication is stopped, can develop within a few days. KNOW YOUR RESPONSIBILITIES It is important to know exactly how much and how often to take the opioid pain medications you are prescribed. Never take opioids in higher amounts or more often than prescribed. Do not combine opioids with alcohol or other drugs that cause drowsiness, such as benzodiazepines, also known as benzos, including diazepam and alprazolam, muscle relaxants or sleep aids. Never sell or share prescription opioids. This is illegal. Store opioids in a secure place and out of reach of others (including children, family, friends and visitors). The last page of this document has been signed and retained as a CHART COPY. Signatures Patient Education Materials Subdural Hematoma Medication Leaflets My discharge plan and instructions have been reviewed and explained to me and I,RAMOS KIM understand my current condition and have read and understand these discharge instructions. I have received a written copy of the plan/instructions. If I have questions, I am aware that I should contact my doctor. 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 The following is important discharge information regarding your hospital visit. Your Care Team TONIA BETANCOURT MD Your Diagnosis Subdural hematoma Fall What to do next Follow Up Appointments Follow Up with [facility], [facility], Nurse to Nurse [phone]. When Within 1-2 days Follow Up with TONIA BETANCOURT When Within 1-2 days Where: [address] [address] [phone] Business (1) The Following Activity and Diet Have Been Ordered for You Transfer of Care Activity - Ordered -- Activity As Tolerated, Fall Risk Precautions. No lifting greater than 10 lbs., 11/22/21 10:30:00 EDT Transfer of Care Diet - Ordered -- Type of Diet: Regular Diet, 11/22/21 10:30:00 EDT The Following Equipment Has Been Ordered for You Discharge Home Equipment Transfer of Care Wound Care - Ordered -- Head, right, Keep laceration site clean and dry at all times. Sutures will need removed in 10-14 days., 11/22/21 10:30:00 EDT The Following Treatments Have Been Ordered for You Discharge Labs No qualifying data available. Discharge Radiology No qualifying data available. Other Therapies Transfer of Care OT - Ordered -- Reason for therapy: general debility, newly dx'ed Parkinson's, s/p fall with SDH, 11/22/21 10:30:00 EDT Transfer of Care PT - Ordered -- Reason for therapy: general debility, newly dx'ed Parkinson's, s/p fall with SDH, 11/22/21 10:30:00 EDT Post Acute Orders Transfer of Care Admission Level of Care - Ordered -- Level of Care SNF, 11/22/21 10:31:08 EDT Transfer of Care Code Status - Ordered -- Full Code, Constant Order Transfer of Care Orders Electronically Signed By - Ordered -- 11/22/21 10:30:00 EDT, JULIANA HARRINGTON, JHON Neville Transfer of Care Prognosis - Ordered -- Good, Patient Aware: Yes Transfer of Care Rehab Potential - Ordered -- Rehab potential good, 11/22/21 10:31:08 EDT Someone Will Contact You Regarding These Home Health Referrals No home referrals have been ordered for you. No one will call you. Allergies NKA Medications Please ask your primary doctor or pharmacist before taking any other medication not listed, including over the counter drugs, herbal medications, vitamins and or supplements as they may interact with your home medications. What How Much When Instructions Last Dose New docusate (Colace 100 mg oral capsule) 1 cap by mouth Two (2) times a day as needed for Constipation Changed acetaminophen (Tylenol 325 mg oral capsule) 650 Milligram by mouth Every 4 hours as needed for Pain, scale 1-3 Changed acetaminophen (Tylenol 8 Hour 650 mg oral tablet, extended release) 2 tab(s) by mouth Two (2) times a day as needed for as needed for pain Unchanged carbidopa-levodopa (carbidopa-levodopa 25 mg-100 mg oral tablet) 1 tab(s) by mouth Two (2) times a day Unchanged simvastatin (simvastatin 20 mg oral tablet) 1 tab(s) by mouth Once a day What How Much When Comments Stop Taking cholecalciferol (D3 50 mcg (2000 intl units) oral capsule) 1 cap by mouth Once a day Stop Taking diclofenac topical (diclofenac 1% topical gel) 2 gram(s) Topical Four (4) times a day as needed for Pain Stop Taking ubiquinone (CoQ10 100 mg oral capsule) 1 cap by mouth Once a day Please take this list to your next doctor s visit. Bring all medications you take, including over the counter medications, herbals and other supplements with you to your doctor s visit. Patients and families are reminded to discard old lists and to update any records with all medication providers or retail pharmacies. Additional Information VACCINATE! IT SAVES LIVES! Members of the community who have not yet received the COVID-19 vaccine and would like to receive it can visit one of [facility] vaccine clinics. There are many vaccine clinic locations within the [facility]. For locations and available times, please visit [email or web address].gov/. It is important to note that some COVID mobile vaccine clinics are held outdoors and may be canceled in rainy or stormy conditions. To learn more about pediatric vaccinations (ages 5-11), we invite you to visit the [facility] webpage. https://www.[facility].org/pa ges/7820-Ytdko-Eyjndyytatu-Freque ivew-Vfknk-Tkwyyiupf.html To learn more about the COVID-19 vaccine, we invite you to visit the [facility] website for a list of frequently asked questions. [email or web address] Lifestyle/assets/Avni mg-btq-Newwbbbv/vokdq-Rkshdzg-Rrv quently_Asked-Questions.pdf [facility] Patient Portal Access Instructions: Stay connected with your healthcare team and access your personal medical information anytime with the [facility] Patient Portal.If you would like a full copy of your medical records, please contact the [facility] Medical Records Department, Saturday through Saturday between 8a.m. and 4:30p.m. Please follow the directions below to access the portal: 1.Access the email account you provided upon registration to the [facility].2.Look for an invitation email from [facility].3.Open the email and access the invitation link: Accept Invitation to [email or web address].Fill in the required rain to create your account. Sign into [email or web address] with your username and password that you created in the above steps to stay up to date. You can then view a summary of results, a summary of your visits, and the ability to download your summaries to your computer or send the information securely to a physician. Remember that your healthcare information is confidential, so carefully consider who you will allow to register on the [facility] Patient Portal for access to your information. You can also access the [facility] Patient Portal on the G-cluster. Simply click on Health Records under Health Data and then click on the Arianna logo. HOW TO SAFELY DISPOSE OF PRESCRIPTION MEDICATIONS Please use one of the following methods to safely dispose of your unused medications. 1.Use a drug disposal kit: the drug disposal pouch allows you to safely discard your old and unused drugs. Ask your nurse to give you one when you are discharged.2.Visit a local take-back location: Many local pharmacies and police departments have programs that collect old and unwanted prescription drugs. Call your local pharmacy or go to [email or web address] to find one close to you.3.Make use of household items: Use cat litter or old coffee grounds to dispose medications if other options are not available. Mix your drugs with these household products, seal them in an airtight container and throw it into the garbage. Call [facility]: [phone] to be sure your drugs can be disposed of in this way. Some medicines may require a different approach.4.Never flush your medications down the toilet. IF YOU HAVE BEEN PRESCRIBED AN OPIOID FOR PAIN If you have been prescribed an opioid (such as hydrocodone, oxycodone or morphine), it is critical to understand the possible side effects and risks of opioid pain medications. Even when taken as directed, opioids can have several side effects including: Tolerance, meaning you might need to take more of a medication for the same pain relief. Nausea, vomiting and/or constipation. Sleepiness, dizziness, dry mouth, confusion, depression or itching. Physical dependence, meaning you have withdrawal symptoms when a medication is stopped, can develop within a few days. KNOW YOUR RESPONSIBILITIES It is important to know exactly how much and how often to take the opioid pain medications you are prescribed. Never take opioids in higher amounts or more often than prescribed. Do not combine opioids with alcohol or other drugs that cause drowsiness, such as benzodiazepines, also known as benzos, including diazepam and alprazolam, muscle relaxants or sleep aids. Never sell or share prescription opioids. This is illegal. Store opioids in a secure place and out of reach of others (including children, family, friends and visitors). The last page of this document has been signed and retained as a CHART COPY. Signatures Patient Education Materials Medication Leaflets My discharge plan and instructions have been reviewed and explained to me and I,RAMOS KIM understand my current condition and have read and understand these discharge instructions. I have received a written copy of the plan/instructions. If I have questions, I am aware that I should contact my doctor. 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 Automated exposure control, iterative reconstruction, and/or weight based adjustment of the mA/kV was utilized to reduce the radiation dose to as low as reasonably achievable. COMPARISON: None available HISTORY: ORDERING SYSTEM PROVIDED HISTORY: Reason for Exam: Right SDH Patient is a transfer from [facility], no complaints of pain FINDINGS: Hyperdense subdural fluid collection in the right temporoparietal region measuring up to 5 mm in maximal thickness with mild adjacent mass effect at its thickest area. No midline shift. Scattered hypodense areas in the periventricular and subcortical white matter which is nonspecific however most consistent with chronic microvascular ischemic changes. There is a small hypodensity in the left basal ganglia, favoring a remote infarct. Mild parenchymal volume loss with commensurate ventricular enlargement. No CT evidence to suggest acute infarct. Calcifications seen along the falx. Atherosclerotic calcification of the cavernous carotid arteries. The skull base and calvarium demonstrate no abnormality. The included paranasal sinuses and mastoid air cells are clear. IMPRESSION: Right acute subdural hematoma as above. No prior images available to compare with, recommend short-term follow-up to ensure stability. Chronic microvascular ischemic changes with a left basal ganglia lacunar infarct, favored to be remote. I have personally reviewed the images of this examination, and agree with the resident's findings and interpretation. Interpreted by: Roger Dumont MD Preliminary Report By: Molly Cortez Electronically signed By Roger Dumont MD Dictated Date: 11/22/2021 5:11:12 AM Prelim Date: 11/22/2021 5:20:50 AM Sign Date: 11/22/2021 5:30:05 AM Ordering Provider: [facility] 11-22-2021 Note ORIGINAL EXAMINATION: CT OF THE HEAD WITHOUT CONTRAST11/22/2021 5:05 am TECHNIQUE: CT of the head was performed without the administration of intravenous contrast. Automated exposure control, iterative reconstruction, and/or weight based adjustment of the mA/kV was utilized to reduce the radiation dose to as low as reasonably achievable. COMPARISON: None available HISTORY: ORDERING SYSTEM PROVIDED HISTORY: Reason for Exam: Right SDH Patient is a transfer from [facility], no complaints of pain FINDINGS: Hyperdense subdural fluid collection in the right temporoparietal region measuring up to 5 mm in maximal thickness with mild adjacent mass effect at its thickest area. No midline shift. Scattered hypodense areas in the periventricular and subcortical white matter which is nonspecific however most consistent with chronic microvascular ischemic changes. There is a small hypodensity in the left basal ganglia, favoring a remote infarct. Mild parenchymal volume loss with commensurate ventricular enlargement. No CT evidence to suggest acute infarct. Calcifications seen along the falx. Atherosclerotic calcification of the cavernous carotid arteries. The skull base and calvarium demonstrate no abnormality. The included paranasal sinuses and mastoid air cells are clear. IMPRESSION: Right acute subdural hematoma as above. No prior images available to compare with, recommend short-term follow-up to ensure stability. Chronic microvascular ischemic changes with a left basal ganglia lacunar infarct, favored to be remote. I have personally reviewed the images of this examination, and agree with the resident's findings and interpretation. Interpreted by: Roger Dumont MD Preliminary Report By: Molly Cortez Electronically signed By Roger Dumont MD Dictated Date: 11/22/2021 5:11:12 AM Prelim Date: 11/22/2021 5:20:50 AM Sign Date: 11/22/2021 5:30:05 AM Ordering Provider: [facility] 11-21-2021 Note ORIGINAL EXAMINATION: TWO XRAY VIEWS OF THE RIGHT HIP11/21/2021 8:58 pm HIP AP and LATERAL RIGHT COMPARISON: None HISTORY: ORDERING SYSTEM PROVIDED HISTORY: Reason for Exam: Right hip pain after fall FINDINGS: Moderate to severe degenerative changes are present at the right hip joint. No acute fracture or dislocation. There is stool in the rectal vault. IMPRESSION: No acute fracture or dislocation. I have reviewed this report and agree with the resident findings and interpretation. Interpreted by: Alyse Crenshaw MD Preliminary Report By: Jeffrey West Electronically signed By Alyse Crenshaw MD Dictated Date: 11/21/2021 9:01:30 PM Prelim Date: 11/21/2021 9:04:55 PM Sign Date: 11/21/2021 9:18:02 PM Ordering Provider: [facility] 11-21-2021 Note ORIGINAL EXAMINATION: TWO XRAY VIEWS OF THE RIGHT HIP11/21/2021 8:58 pm HIP AP and LATERAL RIGHT COMPARISON: None HISTORY: ORDERING SYSTEM PROVIDED HISTORY: Reason for Exam: Right hip pain after fall FINDINGS: Moderate to severe degenerative changes are present at the right hip joint. No acute fracture or dislocation. There is stool in the rectal vault. IMPRESSION: No acute fracture or dislocation. I have reviewed this report and agree with the resident findings and interpretation. Interpreted by: Alyse Crenshaw MD Preliminary Report By: Jeffrey West Electronically signed By Alyse Crenshaw MD Dictated Date: 11/21/2021 9:01:30 PM Prelim Date: 11/21/2021 9:04:55 PM Sign Date: 11/21/2021 9:18:02 PM Ordering Provider: KIAN HEMPHILL [facility] 11-21-2021 History and physical note Date of Service 11/21/2021 Chief Complaint Acute SDH s/p fall. History of Present Illness 76-year-old female with medical history significant for Parkinson's, and previous left hip surgeries who was shopping at [employer] today when she lost her balance and fell to the ground, striking her head. She denies loss of consciousness. States that with her Parkinson's sometimes her feet get going and get ahead of her. She typically uses a cane for ambulation while at home, but was using a shopping cart at the time of her fall. She was taken by EMS to outside hospital, [facility] where a head CT was obtained, showing a small right acute temporal subdural hematoma with maximum thickness of 7 mm and no associated midline shift. Cervical CT unremarkable. Bilateral knee x-rays were also obtained and showed no acute findings. Patient was then transferred to [facility] for neurosurgical review and care. She had a small laceration over the right frontal temporal area that was repaired with suture closure. Dr. Dugan was notified of subdural hematoma findings, and has excepted patient for admission under his primary service. Patient will be admitted to stepdown unit 5 S. No reported anticoagulant or antiplatelet use. Patient is seen in the ED, her is present at the bedside. Patient denies headache currently. She is able to provide details of the event. She denies any dizziness or lightheadedness. Patient is fully awake and alert. Her speech is clear and fluent. She is moving all 4 extremities well. Has no lateralizing weakness. Review of Systems GENERAL: Denies any recent illnesses, infections, fever, chills, or night sweats. States she has not had no recent changes in her appetite or weight. SKIN: Denies skin complaints. Denies pruritus or rashes. HEENT: Denies headaches, or dizziness. Denies acute changes in visual acuity. Denies diplopia or blurred vision. Denies earaches, changes in hearing, or otorrhea. Denies rhinorrhea or sore throat. MS: Denies acute cervical, thoracic, or lumbar pain. Denies specific complaints of joint pain or swelling. Has some discomfort over her knees bilaterally secondary to superficial abrasions. RESPIRATORY: Denies shortness of breath, difficulty breathing or cough. CARDIOVASCULAR: Denies chest pain, pressure, palpitations. GI: Denies abdominal pain, nausea, vomiting. Denies changes in bowel movements/habits. : Denies dysuria or hematuria. NEUROLOGICAL: See HPI. Denies shooting extremity pains, numbness or tingling. Denies any new weakness. Physical Exam Vitals and Measurements T: 36.8 C (Oral) HR: 75 RR: 18 BP: 159/71 SpO2: 95% WT: 70 kg Weight Dosing Weight: 70 kg (11/21/21) General survey: 76-year-old female who appears congruent with her age. She is seen laying supine in bed. at bedside. Patient is cooperative with exam. She is in no acute distress. Skin: Skin is warm and dry. HEENT: Right frontal temporal laceration with suture repair. No acute bleeding or drainage from site. Patient has eyeglasses on. Extraocular movements are intact; no nystagmus or gaze deviation. Pupils are equal and round, and briskly reactive to light. 3 mm in size bilaterally. No otorrhea or rhinorrhea. Oral mucosa is pink and moist. MS: Neck is supple. Normal cervical range of motion without pain or pressure. Normal range of motion throughout. No pain with palpation of thoracic or lumbar spine. Cardiovascular: Regular heart rate and rhythm. Normal S1 and S2 present. No peripheral edema. Respiratory: Respirations even and unlabored. Lungs are clear bilaterally. No evidence of shortness of breath or difficulty breathing. She speaks in full sentences. Abdomen: Abdomen is soft, nontender and nondistended with active bowel sounds 4 quadrants. Peripheral vascular: Extremities are warm and without edema. Radial and pedal pulses are 2+ and symmetric. Neurological: Patient is awake, alert, and oriented x 4. Her speech is clear/fluent. No dysarthria. She makes good eye contact, engages well with examiner. Converses easily. Facial features are symmetric. Patient follows commands briskly and accurately. Moves all 4 extremities well. She has equal and strong motor strength in bilateral upper and lower extremities. No motor weakness. No lateralizing deficits. No pronator drift. Finger-nose testing is intact bilaterally. Light touch sensation is intact equally in both arms, legs, hands and feet. No sensory deficits. GCS is 15. Gait not tested. Lab Results 11/21 13:25 WBC: 14.1 H Hgb: 15.6 Hct: 46.9 H Platelet: 300 Neutrophil %: 73.9 Protime: 10.7 PT International Ratio: 0.9 Glucose Level: 87 Sodium Level: 141 Potassium Level: 3.6 BUN: 15.0 Creatinine Lvl (s): 0.76 Imaging Results and Diagnostics See HPI. EKG EC11/21/21: SINUS RHYTHM...normal P axis, V-rate 50- 99 ATRIAL PREMATURE COMPLEXES...SV complexes w/ short R-R intvls LVH BY VOLTAGE...R >1.10 in aVL INFERIOR INFARCT, OLD...Q >35mS, II III aVF Electronic Signature: BHARGAV KENDRICK DO 11/21/2021 14:13:51 Assessment/Plan Mild TBI acute small SDH s/p accidental fall 76-year-old female with history of Parkinson's, who lost her balance while shopping at [employer], and fell to the ground striking her head. Denied LOC, or syncopal event. Taken to [facility] via EMS and head CT showed a small acute right temporal subdural hematoma, measuring 7 mm in maximum thickness. No associated midline shift. Other work-up including a cervical CT and bilateral knee x-rays were negative for acute injuries. Patient was transferred to [facility] emergency department. Small laceration over right frontal temporal area closed with sutures. Patient accepted by Dr. Dugan for admission to stepdown unit. Discussed case with him. Dr. Dugan has no plans for surgical intervention at this time, evacuation of SDH is not currently needed. Plan instead is to monitor patient, and monitor neuro status. Will repeat head CT tomorrow morning for reevaluation of SDH. If patient's neuro status changes acutely prior to planned repeat head CT tomorrow morning, then will obtain a more urgent head CT for reevaluation. Patient denies use of any anticoagulant or antiplatelet medications. confirms this information is correct. Keep systolic blood pressure less than 140 mmHg. Notify neurosurgery with any acute changes or concerns. Problem List/Past Medical History Ongoing No qualifying data Historical No qualifying data Parkinson's Procedure/Surgical History Left hip surgery x2 Medications No qualifying data available Allergies NKA Social History Patient is and lives at home with her . Family History Mother- CVA, [place] Father- Cancer (unknown type) Sister- Pulmonary disease Brother- CVA Immunizations No qualifying data available. Code Status No qualifying data available. Digitally Signed by KIAN HEMPHILL on 11/21/2021 04:18 PM [facility] Mild TBI acute small SDH s/p accidental fall 76-year-old female with history of Parkinson's, who lost her balance while shopping at [employer], and fell to the ground striking her head. Denied LOC, or syncopal event. Taken to [facility] via EMS and head CT showed a small acute right temporal subdural hematoma, measuring 7 mm in maximum thickness. No associated midline shift. Other work-up including a cervical CT and bilateral knee x-rays were negative for acute injuries. Patient was transferred to [facility] emergency department. Small laceration over right frontal temporal area closed with sutures. Patient accepted by Dr. Dugan for admission to stepdown unit. Discussed case with him. Dr. Dugan has no plans for surgical intervention at this time, evacuation of SDH is not currently needed. Plan instead is to monitor patient, and monitor neuro status. Will repeat head CT tomorrow morning for reevaluation of SDH. If patient's neuro status changes acutely prior to planned repeat head CT tomorrow morning, then will obtain a more urgent head CT for reevaluation. Patient denies use of any anticoagulant or antiplatelet medications. confirms this information is correct. Keep systolic blood pressure less than 140 mmHg. Notify neurosurgery with any acute changes or concerns. Addendum by JULIANA HARRINGTON, JHON Neville on November 22, 2021 13:36:54 EDT This is a split shared note between myself and the nurse practitioner. No acute overnight events. This is a 76-year-old female with a history of Parkinson's disease and multiple hip surgeries, who was shopping when she lost her balance and struck her head on the ground. She was taken to [facility] where CT scan showed the presence of an acute right-sided small subdural hematoma. Repeat CT scan shows that the subdural hematoma is actually decreased in size. Patient is not on any blood thinners. She is admitted to S. further evaluation. On examination she is awake she is alert. She moves all extremities well. She has no sensory deficits. She does struggle with balance. She is denying any headaches nausea or vomiting. Plan at this point time is PT OT consult, likely rehab due to her chronic balance issues. She will follow-up in the office in 2 weeks time with a repeat noncontrast head CT. Future Appointments Appointment Date:12/07/2021 09:15:00 AM Scheduled Provider: Location:XRAY Appointment Type:CT Head or Brain w/o Contrast Appointment Date:12/07/2021 10:00:00 AM Scheduled Provider: Location:NEUROS Appointment Type:NS OV Future Scheduled Tests Radiology* CT Head or Brain w/o Contrast 12/07/21 [facility] Evaluation note* Diagnosis Malignant neoplasm of endometrium (HCC) Malignant neoplasm of corpus uteri, except isthmus documented in this encounter [facility] Work Phone: Evaluation note* Diagnosis PSP (progressive supranuclear palsy)- Primary Other degenerative diseases of the basal [facility] Psychological and behavioral factors associated with disorders or diseases classified elsewhere- Primary Progressive supranuclear palsy Other degenerative diseases of the basal ganglia [facility] Diagnosis Endometrial cancer (CMS/HCC) (HCC)- Primary Malignant neoplasm of corpus uteri, except isthmus [facility] N[facility]ative No data available for this section [facility] Hospital Discharge instructions No data available for this section [facility] Progress note No data available for this section [facility] Reason for referral (narrative)* Consultation (Routine) - New Request Specialty Diagnoses / Procedures Referred By Contvaishali t Referred To Contact Psychiatry Diagnoses Psychological and behavioral factors associated with disorders or diseases classified elsewhere Graeme Najera, PhD [address] [facility] [address] [place] [address] Referral ID Status Reason Start Date Expiration Date V isits Requested Visits Authorized [id number] New Request 12/13/2022 01/07/2024 1 1 [facility] Summary Purpose Family History No Family History Records FoundUnknown Family Member Name Dates Details Father Comments:kidney cancer Status:Active High Chol Comments:mother, brother, si ster Status:Active HTN Comments:mother, brother, si str Status:Active Unknown Family Member Name Dates Details Father Comments:kidney cancer Status:Active High Chol Comments:mother, brother, si ster Status:Active HTN Comments:mother, brother, si str Status:Active Advance Directives No Advanced Directives Records FoundDocuments on File Type Date Recorded Patient Multiple Pressure 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 Operator Expl anation ACP-Advance Directive 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-Power of Tool Shaper Setup Operator Instructions Name Dates Details How to access health informa tion online Indication:Former smoker Start:07-Dec-2019 Instruction Type:Patient Edu cation How to access health informa tion online - Detail Indication:Former smoker Start:07-Dec-2019 Instruction Type:Patient Edu cation Patient Instructions Indication:Former smoker Start:07-Dec-2019 Instruction Type:Provider Instructions for Treatment Name Dates Details How to access health informa tion online Indication:Former smoker Start:07-Dec-2019 Instruction Type:Patient Edu cation How to access health informa tion online - Detail Indication:Former smoker Start:07-Dec-2019 Instruction Type:Patient Edu cation Patient Instructions Indication:Former smoker Start:07-Dec-2019 Instruction Type:Provider Instructions for Treatment Reason for Referral Specialty Diagnoses / Procedures Referred By Betzaida ramos Referred To Contact Speech Therapy Diagnoses PSP (progressive supranuclear palsy) Maggi Penaloza APRN-FIRE WATCHER [address] [place] [address] Referral ID Status Reason Start Date Expiration Date V isits Requested Visits Authorized [id number] New Request 12/13/2022 01/07/2024 1 1 Specialty Diagnoses / Procedures Referred By Betzaida ramos Referred To Contact Occupational Therapy Diagnoses PSP (progressive supranuclear palsy) Maggi Penaloza APRN-FIRE WATCHER [address] [place] [address] Referral ID Status Reason Start Date Expiration Date V isits Requested Visits Authorized [id number] New Request 12/13/2022 01/07/2024 1 1 Specialty Diagnoses / Procedures Referred By Betzaida ramos Referred To Contact Physical Therapy Diagnoses PSP (progressive supranuclear palsy) Maggi Penaloza, DIRECTOR UNIVERSITY-FIRE WATCHER [address] [address] Referral ID Status Reason Start Date Expiration Date V isits Requested Visits Authorized [id number] New Request 12/13/2022 01/07/2024 1 1 Additional Source Comments INFORMATION SOURCE (unrecogn ized section and content) DATE CREATED AUTHOR AUTHOR'S ORGANIZ ATION 05/26/2020 [facility] [place] DATE CREATED AUTHOR AUTHOR'S ORGANIZ ATION 08/19/2020 [facility] DATE CREATED AUTHOR AUTHOR'S ORGANIZ ATION 01/17/2022 [facility] ([place] DATE CREATED AUTHOR AUTHOR'S ORGANIZ ATION 12/29/2022 [facility] DATE CREATED AUTHOR AUTHOR'S ORGANIZ ATION 03/16/2023 [facility] [employer] Care Team (unrecognized sect ion and content) Care Team Personnel Name: TONIA BETANCOURT MD Member Role: Primary Care Physician Address: Address: [address] [place] [address] Care Team Related Persons Name: SENA KIM Address: [place] [address] Care Team Personnel Name: TONIA BETANCOURT MD Member Role: Primary Care Physician Address: Address: [address] [place] [address] Care Team Related Persons Name: SENA KIM Address: [address] [phone] Reason for Visit (unrecogniz ed section and content) Reason Comments New Patient PD Multidisciplinary Clinic Reason Comments Follow-up Pt has no concerns. Reason Onset Date Comments Results 03/12/2023 Care Teams (unrecognized sec tion and content) Career Services Director Relationship Specialty Start Date End Date Tonia Betancourt [address] [place], [place] [address] PCP - General 01/30/16 Rabia Olivier APRN - RAVINDRA [address] [facility] [address] [place] [address] Nurse Practitioner Certified Nurse Practitioner 02/08/22 FOR RECORDS PERTAINING TO PATIENTS WHO ARE OR HAVE BEEN ENROLLED IN A CHEMICAL DEPENDENCY/SUBSTANCEABUSE PROGRAM, SOME INFORMATION MAY BE OMITTED. This clinical summary was aggregated from multiple sources. Caution should be exercised in using it in the provision of clinical care. This summary normalizes information from multiple sources, and as a consequence, information in this document may materially change the coding, format and clinical context of patient data. In addition, data may be omitted in some cases. CLINICAL DECISIONS SHOULD BE BASED ON THE PRIMARY CLINICAL RECORDS. [facility]. provides no warranty or guarantee of the accuracy or completeness of information in this document.
== END | disposition home or self-care (01) ==
LOC: MTRAD 10:47
PROVIDERS: PCP Family Medicine; Referring Provider Family Medicine; Visit Provider Family Medicine
DX: S69.91XA Unspecified injury of right wrist, hand and finger(s), initial encounter (principal); X58.XXXA Exposure to other specified factors, initial encounter
CPT/HCPCS: 73130

== ENCOUNTER 2023-05-03 09:00 | Outpatient (RCR) | payer MEDICARE, OTHER, SELFPAY ==
--- NOTE | 2023-04-03 11:12 | HP.SP.EV_ITS ---
Visit History Visit Info Date of Eval: 04/03/23 Visit: 1 Glass Washer: LARS History Attending Doctor: Referring Doctor: Reason for Referral: HYPOPHONIA. RX HERE Previous speech therapy: Yes Medications related to this diagnosis: carbidopa-levodopa 25-100 m TID, Rosuvastatin Smoking Status: Former smoker Pain Is pain an issue with your current prescribed condition?: No Personal Preferred language: Swedish Patient Allergies Allergies Allergies: Allergies No Known Allergies Allergy (Verified 01/15/23 15:23) Subjective Voice Informal Questioner Do you scream (anger, sporting event, work, noisy envirmonment): Less than average Do you raise your voice (e.g. parenting, calling from room to room, etc.): Less than average Do you talk for long periods of time without a break (teacher, howard): Less than average Are you a talker: Less than average Do you clear your throat: Less than average Do you cough: More than average Do you sing: Less than average How often do you use the telephone: Less than average Do you do impersonations, character voices or unusual sound effects: None Intubation Was the Client intubated: No Intake Water (ounces): 80 Coffee (ounces): 8 Tea (ounces): 0 Soda (ounces): 0 Energy drinks (ounces): 0 Milk (ounces): 0 Juice (ounces): 0 Objective Voice Date of Diagnosis Date of diagnosis: 11/2021 Previous Speech Therapy (If yes, describe): Yes Details of therapy: Short term in fall 2021 after falling. Increased vocal loudness Medications Familiar with on/off effect: Yes Implantation Deep brain implantation (If yes, answer next question): No Objective data Objective Data: Objective data: Sound pressure level (SPL acoustic correlation of vocal loudness) was measured with a sound level meter at a distance of 40 cm from the patient's mouth. Average conversational loudness is 70-80 dB and sustained phonation duration is 15 to 20 seconds for a typical adult. Sustained Phonation Intensity (dB SPL): 68 Sustained Phonatin duration (seconds): 8.6 Is the individual stimulable to increase vocal intensity: Yes Vocal Intensity at Sentence Level (dB SPL): 62.5 Vocal Intensity at Conversational Level (dB SPL): 52 Subjective Clinical Impression Non-Phonatory Behaviors/Respiration Reduced loudness or vocal weakness: Present Limited breath support for speech: Present Reference: Neuro-QoL instrument HDQLIFE - Speech Difficulties In the past 7 days. It was difficult for other people to understand me.: Never Is was difficult to speak clearly?: Never In the past 7 days.. How often did you limit your social activites because you had difficulty speaking?: Never In the past 7 days... I had trouble speaking.: Somewhat I was frustrated by my speech difficulties.: A little bit How much DIFFICULTY do you have... ...saying what you want to say?: Some difficulty Score HDQLIFE Speech Difficulties Raw Score: 11 HDQLIFE Speech Difficulties T - Score: 51 Radiation Oncology Patient Plan Plan Plan: A vocal intensity based intervention approach applying LSVT principles to improve her speech intelligibility will be used. Given the progressive nature of her primary diagnosis, It is not anticipated for a full return to pre-morbid level of functioning, though will expect to achieve gains in speech intelligibility as well as maintain current level of functioning. To achieve this, the patient will require continued skilled speech-language intervention not only through the current intervention cycle but will likely benefit from repeated intervention cycles to maintain communication efficiency. Recommendations Treatment Warranted: Yes Treatment Warranted: Voice Progress Prognosis: Good Frequency Frequency: 2x /Week Duration: 4 Weeks Visits in this POC: 8 Goals that are Established Determination:: Goals will be added/modified as deemed necessary and appropriate. Therapy will be discontinued when results of re-evaluation indicate therapy is no longer needed or lack of progress has been documented. Goal #1-5 Goal #1: Patient will increase vocal loudness to reach a target sound pressure level of 75 dB HAZMAT CDL A DRIVER with 1 cue during sustained phonation, which will help increase vocal respiratory support for functional communication. Goal #2: Patient will increase vocal loudness to reach a target sound pressure level of 70 dB HAZMAT CDL A DRIVER with 1 cue during reading at the word and sentence level, which will help increase vocal respiratory support for functional communication. Goal #3: Patient will increase vocal loudness to reach a target sound pressure level of 65 dB HAZMAT CDL A DRIVER with 1 cue during conversation for functional communication. Goal #4: Patient will sustain phonation for 10-12 seconds to increase lung capacity for increased volume and functional communciation. Education Patient has Indicated that the Following Identified Educational Needs: None The Patient has indicated that they have no educational or learning abilities that may effect their care.: Yes Patient Instruction Patient Education: Diagnosis, Treatment Plan and Goals Person Taught: Patient Response to teaching: Verbalize understanding and Has Prior Knowledge
--- NOTE | 2023-05-20 09:59 | HP.SP.DC_ITS ---
ST Discharge Summary Discharged: Discharge: Jill Kim is discharged from speech therapy at [facility] as of 05/03/23 at patient?s request. 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 She completed a total of 8 visits with good attendance. Her therapy was complicated multiple days by throat pain. She was given the recommendation for at least three weeks to contact her PCP regarding continued pain. Her goal for 75 dB for sustained phonation was not met due to this reason. Another goal focused on length of sustained phonation for 10-12 seconds and patient was able to hold it for 8 seconds. Her conversational level ranged from 56 dB to 59dB. She requested discharge as she broke her wrist and did not know if she was going into a detention short term as she stated if she has to be casted then her told her he was not able to care for her at that time. Please see reports and daily notes for complete details. Thank you for allowing me to participate in the care of your patient.
== END 2023-05-03 19:00 | disposition home or self-care (01) ==
LOC: SP 09:00
PROVIDERS: PCP Family Medicine; Referring Provider Family Medicine; Visit Provider Family Medicine
DX: R49.8 Other voice and resonance disorders (principal); R47.89 Other speech disturbances
CPT/HCPCS: 92507; 92524

== ENCOUNTER 2023-05-23 14:59 | Emergency (ER) | payer MEDICARE, OTHER, SELFPAY ==
[2023-05-23 15:01] VITALS: BP 139/84; PULSE 80; RESP 18; TEMP 36.3; O2SAT 100
--- NOTE | 2023-05-23 15:37 | EDS_ITS ---
HPI <ECHO Kraft - Last Filed: 05/23/23 17:15> History of Present Illness Chief Complaint: Upper Extremity Injury Narrative Narrative: Patient presenting today due to left wrist pain that she has had since this morning. She reports that she had a fall around 6:30 AM where she lost her balance and fell onto her left side. She reports a history of Parkinson's disease and frequent falls. She did not hit her head, she is not on any blood thinners, she denies any other injury. PFS <ECHO Kraft - Last Filed: 05/23/23 17:15> [facility] Medical History Abnormal bruising Acute bronchitis, unspecified Back pain Carpal tunnel syndrome De Quervain's tenosynovitis, right Difficulty balancing Encounter for screening for malignant neoplasm of lung in former smoker who quit in past 15 years with 30 pack year history or greater Endometrial cancer Fatigue High cholesterol History of tobacco use Hypertension Migraines Osteoarthritis of carpometacarpal joint of right thumb Parkinson disease Right hand pain Shoulder pain URI (upper respiratory infection) Uterine cancer Home Medications carbidopa 25 mg-levodopa 100 mg tablet 1 tab PO BID parkisons 11/22/21 [History Last Taken Unknown] acetaminophen 500 mg tablet 1,000 mg (2 x 500 mg) PO Q6H PRN PRN Pain Score 1-10 #0 tabs 11/29/21 [Rx Last Taken Unknown] cholecalciferol (vitamin D3) 50 mcg (2,000 unit) capsule (D3-2000) 50 mcg PO DAILY 03/16/22 [History Last Taken Unknown] rosuvastatin 10 mg tablet 10 mg PO DAILY 01/15/23 [History Last Taken Unknown] Allergy/AdvReac Type Severity Reaction Status Date / Time No Known Allergies Allergy Verified 05/23/23 15:01 Family History Mother CVA (cerebral vascular accident) Hypertension Arthritis Heart disease Father Cancer Skin cancer Sister CVA (cerebral vascular accident) Hypertension Brother Hypertension CVA (cerebral vascular accident) Surgical History H/O: hysterectomy History of hip surgery History of left hip replacement History of left shoulder replacement Social History household members: spouse housing: house Smoking Status: Former smoker quit date: 01/02/15 pack-years: 40 Tobacco: How many years used: 40 Electronic Cigarette Use: not used second hand exposure: Yes quit status: has quit before counseling given: provider counseling alcohol intake: never what type of physical activity do you participate in: walking and other details: golf do you feel safe at home: Yes ROS <ECHO Kraft - Last Filed: 05/23/23 17:15> ROS ED Constitutional Constitutional ED: Denies chills or fever(s) Cardiovascular Cardiovascular: Denies chest pain Respiratory/Chest Respiratory/Chest: Denies cough or dyspnea Gastrointestinal Gastrointestinal: Denies abdominal pain, nausea or vomiting Musculoskeletal Musculoskeletal: Reports arthralgias; Denies back pain, myalgias or neck pain Integumentary Denies Abrasions Neurologic Neurologic: Denies paresthesias or weakness EXAM <ECHO Kraft - Last Filed: 05/23/23 17:15> Physical Exam Const Vital Signs: 05/23/23 15:01 Temperature 97.3 F L Temperature Source Temporal Pulse Rate 80 Respiratory Rate 18 Blood Pressure 139/84 H Blood Pressure Mean 102 Pulse Ox 100 Oxygen Delivery Method Room Air Positive well nourished, well developed and no apparent distress General Appearance ED: well developed HEENT Reports normocephalic and head/scalp atraumatic Mouth ED: Yes moist mucous membranes normal Eyes PERRL and EOMs intact bilaterally Neck full ROM and supple Chest Wall inspection of chest normal Resp normal respiratory effort and clear to auscultation bilaterally Cardio regular rate and regular rhythm GI soft to palpation, non-tender, non-distended and no masses Back/Spine normal ROM and normal to inspection Extremity normal to inspection and full ROM Extremity Narrative: Slight erythema and pain to palpation to the left radial styloid, with radial pulse 2+, good capillary refill, sensation intact. Limited range of motion to the left wrist due to pain. No left-sided snuffbox tenderness Neuro oriented x3, CN's II-XII intact bilaterally, moves all extremities, no focal motor deficits and no sensory deficits noted Sensorium / Orientation: awake and alert Psych mental status grossly normal and thought process normal Skin no rashes or lesions noted and no wounds MDM <ECHO Kraft - Last Filed: 05/23/23 17:15> [facility] Narrative Medical decision making narrative: Patient presenting with left wrist pain after a fall that occurred this morning, tender to the left radial styloid, x-ray will be obtained to rule out fracture. It was reviewed by the attending ED physician is no acute process. She was given Tylenol for pain. She will be given a left wrist splint and rice instruc tions. She will be discharged home in stable condition. Encouraged outpatient follow-up. <Dr. Lamont Escobedo DO - Last Filed: 05/23/23 17:36> [facility] Narrative Medical decision making narrative: Patient presenting with left wrist pain after a fall that occurred this morning, tender to the left radial styloid, x-ray will be obtained to rule out fracture. It was reviewed by the attending ED physician is no acute process. She was given Tylenol for pain. She will be given a left wrist splint and rice instructions. She will be discharged home in stable condition. Encouraged outpatient follow-up. Interventions / MDM: Differential diagnosis: Contusion, sprain Diagnosis considered but do not suspect: Fracture however x-ray negative My EKG interpretation: N/A Imaging independently reviewed and interpreted by myself: Three-view x-ray left wrist: No fracture or dislocation External documents reviewed: N/A Test considered but not ordered:N/A ED course: Attending note: Patient seen and evaluated with broadcasting equipment mechanic. I perform my own [id number] evaluation. I agree with the plan of work-up. Here with spouse mechanical fall 11 AM. Parkinson's uses a walker. No head injuries. No anticoagulants. Think she hit her wrist on the armour. Pain with movement. Exam GCS 15. No shoulder or elbow tenderness. No hand tenderness. There is erythema at the radial styloid tenderness at this region no snuffbox tenderness no swelling. Skin intact. No deformities. Treated with Tylenol in the ED, x- rays obtained interpreted myself no fracture or dislocation noted. Velcro thumb spica provided for support. Continue Tylenol. Outpatient follow-up with her PCP. Re-evaluation: stable Disposition discussed with patient/family/significant other: Patient and significant other Case discussed with consulting clinician: N/A This note was generated with [employer]ation software. It may contain incorrect words, spelling, and punctuation that were not noted in checking the note before signing. Discharge Plan Triage Chief Complaint: Upper Extremity Injury ED Midlevel Provider: Tori Vidal ED Provider: Lamont Escobedo Dx/Rx/DC Orders Clinical Impression: Fall, Sprain of wrist, left Instructions: ED Wrist Sprain Prescriptions: No Action cholecalciferol (vitamin D3) [D3-2000] 50 mcg (2,000 unit) capsule 50 mcg PO DAILY carbidopa-levodopa 25-100 mg tablet 1 tab PO BID acetaminophen 500 mg Tablet 1,000 mg PO Q6H PRN PRN (Reason: Pain Score 1-10) Qty: 0 0RF rosuvastatin 10 mg tablet 10 mg PO DAILY Patient Comments: take 1 tablet by mouth once daily Primary Care Provider: Dmitry Monteiro Referrals: Dmitry Monteiro MD [Primary Care Provider] - 1 Week if not improving Activity Restrictions/Additional Instructions: You can ice your wrist for 10 to 15 minutes at a time few times a day for the next few days and take Tylenol for your pain as needed. Please follow-up with your PCP if no improvement of your symptoms. Disposition Disposition: Home, Self Care Discharge Date/Time: 05/23/23 17:24
[2023-05-23] MEDS: Acetaminophen 325 MG Tablet 650 MG PO (16:13)
--- NOTE | 2023-05-23 16:25 | RAD_ITS ---
STUDY: X-RAY - LEFT WRIST REASON FOR EXAM: Female, 77 years old. injury TECHNIQUE: 3 view(s) of the wrist were obtained. COMPARISON: None. FINDINGS: Normal visualized distal radius and ulna. Normal radiocarpal articulation. Normal distal radioulnar articulation. Normal carpal bones. Normal carpal articulations. There is degenerative arthrosis of the carpometacarpal articulation of the thumb. Normal second through fifth carpometacarpal articulations. Normal visualized metacarpal bones. The soft tissue structures are unremarkable. There is no demonstrated acute fracture. RAD/Wrist min 3 Views IMPRESSION: No fracture or dislocation. Electronically Signed: Pascual Chauhan MD at 17:20 EDT ,
[2023-05-23 17:06] VITALS: BMI 24.1
== END 2023-05-23 17:24 | disposition home or self-care (01) ==
PROVIDERS: Emergency Provider Emergency Medicine; PCP Family Medicine; Visit Provider Emergency Medicine
DX: S63.92XA Sprain of unspecified part of left wrist and hand, initial encounter (principal); Z87.891 Personal history of nicotine dependence; G20.A1 Parkinson's disease without dyskinesia, without mention of fluctuations; W19.XXXA Unspecified fall, initial encounter; E78.00 Pure hypercholesterolemia, unspecified; I10 Essential (primary) hypertension; Z91.81 History of falling
CPT/HCPCS: 73110; 99283

== ENCOUNTER → 2023-05-29 | Outpatient (CLI) | payer MEDICARE, OTHER, SELFPAY ==
--- NOTE | 2023-05-29 16:35 | RAD_ITS ---
EXAM: XR LEFT WRIST COMPLETE, 3 OR MORE VIEWS CLINICAL INDICATION: Left wrist injury TECHNIQUE: Frontal, lateral and oblique views of the left wrist. COMPARISON: No relevant prior studies available. FINDINGS: BONES/JOINTS: There is moderate demineralization. Moderate-marked degenerative change involving the base of the thumb with surrounding hypertrophic changes and multiple chronic-appearing ossific densities, joint space narrowing and sclerosis. No acute fracture. No subluxation. Normal alignment. SOFT TISSUES: Mild dorsal soft tissue swelling at the level of the wrist. The pronator quadratus fat plane appears intact. No radiopaque foreign body. RAD/Wrist min 3 Views IMPRESSION: Advanced demineralization. Mild soft tissue swelling. Advanced degenerative changes involving the thumb carpal-metacarpal joint. No convincing acute posttraumatic findings. Electronically Signed: Yudy Dewitt MD at 4:38 EDT ,
== END | disposition home or self-care (01) ==
PROVIDERS: PCP Family Medicine; Referring Provider Family Medicine; Visit Provider Family Medicine
DX: M25.532 Pain in left wrist (principal)
CPT/HCPCS: 73110

== ENCOUNTER 2023-06-24 13:30 | Outpatient (RCR) | payer MEDICARE, OTHER, SELFPAY ==
--- NOTE | 2023-06-10 18:19 | HP.OTEVAL_ITS ---
Patient's Visit Information Visit Information Visit Information: RAMOS PADRON is a 78 year old F, referred to Occupational Therapy by Dmitry Monteiro MD, with a diagnosis of left wrist sprain. Date of Evaluation: 06/10/23 Occupational Therapist: Jesi Garces, SHERMAN/Lenard, CHT Subjective Subjective: This 78 year old female was seen fot OT eval with dx of left wrist strain pt states she has increase pain from a fall May 22. pt states she continues to have pain and swelling since her fall. pt is right handed- pt dx with PD and ambulates with rollator for PD. therapist noted pt does lean heavily on UB with ambulation. pt states she wakes up with left wrist pain. pt states use of rollator her left wrist does hurt. ADLs Comments: pt lives with her - use of PD rollator with LED light- pt does lean on rollator with ambulation- pt demo downward pressure on table top to decrease tremor - pt has ad. eq. and uses when she needs pt still does cooking does dishes. Pain left wrist: Current Pain Intensity: 4 Pain Intensity Range: 9 ROM Forearm: right/left WNL Wrist: right 65/60 left 45/25 CMC: right 35* left 15* MP: right 55* left 45* IP: right 50* left 55 Palmar Abduction: right 45* left 35 ROM Comments: left wrist RD 15* left wrist UD 15* right wrist RD 20* left wrist UD 35* Strength Motor Hotel Manager: right 10# left unable Sensation Sensation Comments: denies Quick DASH-Disab of Arm,Shoulder& Hand Quick DASH Score: 65.9075 Goals Goal:: pt will demo a increase in left public health nutritionist strength to 15# or greater to increase pts ind.with ADLs by d/c Goal:: pt will report a decrease in left wrist pain to 2/10 with ambulation with her rollator by d/c Goal:: pt will demo understanding of using counter top to support self to avoid full weight bearing to left UE so pt can use right by end of 4th visit. pt will demo understanding of using ad. eq. to decrease stress on left wrist/ forearm by d/c Rehabilitation General Assessment: pt arrives 2 weeks and 4 days from fall where she suffered a left wrist sprain. pt pain is limiting her IND with all ADLs and IADLs. pts relies on bilateral UE for all ADLS and with ambulation- pt use of PD rollator and support self with left UE when using right at counter top heights. pt would benefit from skilled OT services 2x week for 4-6 weeks to decrease pts pain, improve pts functional use of left UE with ADLs, energy conservation and joint protection/ad. eq. to improve pts IND. Pt demo understanding and agrees to POC. Rehabilitation Potential: Good Anticipated Interventions Anticipated Interventions: A/AAROM/PROM, Strengthening, Triggerpoint Release, Modalities, Joint Protection/Energy Conservation, Ergonomic Education, Education re assistive Equipment, Education re Diagnosis, Caregiver Training and Home Program Visit Plan Frequency: 2x /Week Duration: 4-6 Weeks General Plan: ed. pt on to avoid full weight bearing on left wrist/hand with ambulation and with keeping balance when using right UE. Manual therapy to decrease pain modalities PRN energy conservation amanda. TEXT: Thank you for the opportunity to evaluate your patient. For Medicare and Medicare HMO plans, please review the plan of care and approve it. It will need to be FAXED BACK to us at [phone] for Medicare purposes. Please let me know if there are questions or concerns regarding this plan of care. Physician Signature: Date:
== END 2023-06-24 19:00 | disposition home or self-care (01) ==
LOC: OT 13:30
PROVIDERS: PCP Family Medicine; Referring Provider Family Medicine; Visit Provider Family Medicine
DX: S39.012D Strain of muscle, fascia and tendon of lower back, subsequent encounter (principal); S63.502D Unspecified sprain of left wrist, subsequent encounter
CPT/HCPCS: 97110; 97140; 97166; 97530

== ENCOUNTER 2023-06-25 16:09 | Emergency (ER) | payer MEDICARE, OTHER, SELFPAY ==
[2023-06-25 16:12] VITALS: BP 129/79; PULSE 83; RESP 18; TEMP 36.5; O2SAT 96
[2023-06-25 16:18] VITALS: BMI 25.4
--- NOTE | 2023-06-25 16:40 | ED.VIS.FALL ---
HPI HPI - Fall History of Present Illness Chief Complaint: Fall Detail of Chief Complaint: Fall due to Parkinson's Informant: patient and spouse/S.O. Occured/Mechanism Occurred: Days (This occurred on Saturday, June 21) Mechanism/Context: Yes same level fall Narrative: Patient fell due to her Parkinson's disease. This is a common occurrence. Pain/Injury Location: Lumbar sacral region Quality of Pain: Dull and Aching Current Severity: Mild Maximum Severity: Moderate Worsened by: Sitting and movement Relieved by: Nothing Associated Symptoms Associated Symptoms: Negative for Parasthesias, Weakness, Loss of function, Inability to ambulate, Loss of consciousness or Amnesia Narrative Narrative: Patient is a 78-year-old woman. She had a mechanical fall this past Saturday. She landed on the edge of the shower. She complains of pain lower back region. She has done nothing for the pain or taken anything for the pain. She denies bowel bladder dysfunction. She denies blood in her urine. She denies radicular pain. She denies numbness or tingling in her buttocks area or legs. She denies bruising easily. She is not on anticoagulant. Prior similar symptoms: Yes Recent Illness/Hospitalization: No PFSH PFSH Medical History Abnormal bruising Acute bronchitis, unspecified Back pain Carpal tunnel syndrome De Quervain's tenosynovitis, right Difficulty balancing Encounter for screening for malignant neoplasm of lung in former smoker who quit in past 15 years with 30 pack year history or greater Endometrial cancer Fatigue High cholesterol History of tobacco use Hypertension Migraines Osteoarthritis of carpometacarpal joint of right thumb Parkinson disease Right hand pain Shoulder pain URI (upper respiratory infection) Uterine cancer Home Medications carbidopa 25 mg-levodopa 100 mg tablet 1 tab PO BID parkisons 11/22/21 [History Last Taken Unknown] acetaminophen 500 mg tablet 1,000 mg (2 x 500 mg) PO Q6H PRN PRN Pain Score 1-10 #0 tabs 11/29/21 [Rx Last Taken Unknown] cholecalciferol (vitamin D3) 50 mcg (2,000 unit) capsule (D3-2000) 50 mcg PO DAILY 03/16/22 [History Last Taken Unknown] rosuvastatin 10 mg tablet 10 mg PO DAILY 01/15/23 [History Last Taken Unknown] hydrocodone-acetaminophen 5-325mg 5mg-325mg 1 tab PO Q6H PRN PRN Pain 3 days #10 TABLETS 06/25/23 [Rx Last Taken Unknown] Allergy/AdvReac Type Severity Reaction Status Date / Time No Known Allergies Allergy Verified 06/25/23 16:11 Family History Mother CVA (cerebral vascular accident) Hypertension Arthritis Heart disease Father Cancer Skin cancer Sister CVA (cerebral vascular accident) Hypertension Brother Hypertension CVA (cerebral vascular accident) Surgical History H/O: hysterectomy History of hip surgery History of left hip replacement History of left shoulder replacement Social History household members: spouse housing: house Smoking Status: Former smoker quit date: 01/02/15 pack-years: 40 Tobacco: How many years used: 40 Electronic Cigarette Use: not used second hand exposure: Yes quit status: has quit before alcohol intake: never what type of physical activity do you participate in: walking and other details: golf do you feel safe at home: Yes ROS ROS ED Constitutional Constitutional ED: Denies chills or fever(s) Eyes Eyes: Denies blurry vision or change in vision Genitourinary Genitourinary ED: Denies hematuria Musculoskeletal Musculoskeletal: Reports back pain; Denies arthralgias, myalgias or neck pain Integumentary Denies rash Neurologic Neurologic: Denies paresthesias or weakness Hematologic/Lymphatic Hematologic/Lymphatic: Denies easy bleeding or easy bruising EXAM Physical Exam Const Vital Signs: 06/25/23 16:12 06/25/23 16:19 Temperature 97.7 F L Temperature Source Temporal Pulse Rate 83 Respiratory Rate 18 Respiratory Effort Normal Respiratory Depth Normal Respiratory Pattern Normal Blood Pressure 129/79 H Blood Pressure Mean 95 Pulse Ox 96 Oxygen Delivery Method Room Air Room Air Positive well nourished and well developed General Appearance ED: well developed and NAD HEENT Reports normocephalic HEENT Narrative: Ears are normal. Nares patent. Eyes PERRL and EOMs intact bilaterally General Eye ED: Negative for scleral icterus Neck full ROM, no lymphadenopathy and supple Resp normal respiratory effort, no retractions and clear to auscultation bilaterally Cardio regular rate, regular rhythm, S1 normal heart sound and no murmurs GI non-tender, non-distended and no masses Auscultation: normoactive bowel sounds Palpation: soft Back/Spine no CVA tenderness Thoracic Spine / Upper Back: pain with ROM; Negative for ROM limited or thoracic spinal tenderness Lumbar Spine / Lower Back: lumbar spinal tenderness and paraspinal muscle tenderness Extremity Extremity Narrative: There is no swelling, discoloration and DP pulses palpable bilaterally. Neuro oriented x3, CN's II-XII intact bilaterally, moves all extremities, no focal motor deficits and no sensory deficits noted Anna Coma Scale: document GCS findings Oriented Sensorium / Orientation: alert Psych mental status grossly normal and thought process normal Skin Lesions: no lesions Rashes: no rashes Trauma: Negative for abrasion MDM MDM MDM Narrative Medical decision making narrative: Patient denies history of osteoporosis osteopenia. Since she is complaining of midline pain status post trauma and no improvement in several days will obtain x-rays to evaluate for compression fracture. Differential diagnosis is contusion versus fracture. Patient declined pain medicine. Radiography Chest X-Ray - ED: Read by ED Physician (Three-view x-ray of the LS-spine is dependently reviewed interpreted by me is negative for any acute process. There is degenerative changes. There is atherosclerotic changes noted in the aorta. There is slight compression of L2. This is unchanged from CAT scan performed May 25, 2022. Patient ) Treatment and Re-Evaluation Narrative: Patient was informed the results. Patient was discharged home with appropriate home-going instructions. Patient would like something now for pain and something to go home with. Discharge Plan Triage Chief Complaint: Fall ED Provider: Louie Manzo Dx/Rx/DC Orders Clinical Impression: Injury due to fall, DDD (degenerative disc disease), lumbar, Parkinson's disease, Contusion of lower back and pelvis, initial encounter, Atherosclerotic cardiovascular disease Instructions: ED Back Contusion Prescriptions: New hydrocodone-acetaminophen [hydrocodone-acetaminophen] 5-325 mg tablet 1 tab PO Q6H PRN PRN (Reason: Pain) 3 Days Qty: 10 0RF No Action cholecalciferol (vitamin D3) [D3-2000] 50 mcg (2,000 unit) capsule 50 mcg PO DAILY carbidopa-levodopa 25-100 mg tablet 1 tab PO BID acetaminophen 500 mg Tablet 1,000 mg PO Q6H PRN PRN (Reason: Pain Score 1-10) Qty: 0 0RF rosuvastatin 10 mg tablet 10 mg PO DAILY Patient Comments: take 1 tablet by mouth once daily Primary Care Provider: Dmitry Monteiro Referrals: Dmitry Monteiro MD [Primary Care Provider] - 1 Week if not improving Disposition Disposition: Home, Self Care
--- NOTE | 2023-06-25 16:41 | RAD_ITS ---
STUDY: X-RAY - LUMBAR SPINE REASON FOR EXAM: Female, 78 years old. Injury/Pain TECHNIQUE: view(s) of the lumbar spine were obtained. COMPARISON: None FINDINGS: Normal lumbar lordosis. There is no substantial scoliosis. There is a normal alignment of the vertebrae. Degenerative changes of the vertebral bodies with spurring at the endplates. Central depression at L1 to superior endplate. Narrowed L4-5 and L5-S1 disc space heights. The soft tissue structures are unremarkable. Calcified aorta. There is a left hip prosthesis, partially visualized. RAD/Lumbar Spine 2 or 3 Views IMPRESSION: Degenerative changes of the lumbar spine. Central depression at the superior endplate of L2. Electronically Signed: Blanco Miller DO at 17:10 EDT ,
[2023-06-25] MEDS: HYDROcodone Bitartrate/Apap 5/325 Tablet PO (17:23)
[2023-06-25 17:25] VITALS: BP 124/76; PULSE 89; RESP 17; TEMP 36.5; O2SAT 97
== END 2023-06-25 17:27 | disposition home or self-care (01) ==
LOC: ED 17:16
PROVIDERS: Emergency Provider Emergency Medicine; PCP Family Medicine; Visit Provider Emergency Medicine
DX: S20.229A Contusion of unspecified back wall of thorax, initial encounter (principal); G20.A1 Parkinson's disease without dyskinesia, without mention of fluctuations; M51.36 Other intervertebral disc degeneration, lumbar region; Z87.891 Personal history of nicotine dependence; E78.00 Pure hypercholesterolemia, unspecified; I10 Essential (primary) hypertension; I25.10 Atherosclerotic heart disease of native coronary artery without angina pectoris; W18.30XA Fall on same level, unspecified, initial encounter
CPT/HCPCS: 72100; 99282

== ENCOUNTER 2023-07-04 18:43 | Emergency (ER) | payer MEDICARE, OTHER, SELFPAY ==
[2023-07-04 18:43] VITALS: BP 142/70; PULSE 84; RESP 17; TEMP 36; O2SAT 96
--- NOTE | 2023-07-04 18:56 | ED.VIS.FALL ---
HPI HPI - Fall History of Present Illness Chief Complaint: Fall Informant: patient and spouse/S.O. Narrative Narrative: Mechanical fall head injury prior to arrival. History of Parkinson's. Patient walking backwards from the refrigerator when she tripped hitting the back of her head. No loss of conscious. No neck or back pain. No extremity pain. No anticoagulants. Patient had a traumatic intracranial hemorrhage 2 years ago no surgical intervention. Reports headache. No nausea or vomiting. Prior similar symptoms: Yes PFSH PFSH Medical History Abnormal bruising Acute bronchitis, unspecified Back pain Carpal tunnel syndrome De Quervain's tenosynovitis, right Difficulty balancing Encounter for screening for malignant neoplasm of lung in former smoker who quit in past 15 years with 30 pack year history or greater Endometrial cancer Fatigue High cholesterol History of tobacco use Hypertension Migraines Osteoarthritis of carpometacarpal joint of right thumb Parkinson disease Right hand pain Shoulder pain URI (upper respiratory infection) Uterine cancer Home Medications carbidopa 25 mg-levodopa 100 mg tablet 1 tab PO BID parkisons 11/22/21 [History Last Taken Unknown] acetaminophen 500 mg tablet 1,000 mg (2 x 500 mg) PO Q6H PRN PRN Pain Score 1-10 #0 tabs 11/29/21 [Rx Last Taken Unknown] cholecalciferol (vitamin D3) 50 mcg (2,000 unit) capsule (D3-2000) 50 mcg PO DAILY 03/16/22 [History Last Taken Unknown] rosuvastatin 10 mg tablet 10 mg PO DAILY 01/15/23 [History Last Taken Unknown] hydrocodone-acetaminophen 5-325mg 5mg-325mg 1 tab PO Q6H PRN PRN Pain 3 days #10 TABLETS 06/25/23 [Rx Last Taken Unknown] Allergy/AdvReac Type Severity Reaction Status Date / Time No Known Allergies Allergy Verified 06/25/23 16:11 Family History Mother CVA (cerebral vascular accident) Hypertension Arthritis Heart disease Father Cancer Skin cancer Sister CVA (cerebral vascular accident) Hypertension Brother Hypertension CVA (cerebral vascular accident) Surgical History H/O: hysterectomy History of hip surgery History of left hip replacement History of left shoulder replacement Social History household members: spouse housing: house Smoking Status: Former smoker quit date: 01/02/15 pack-years: 40 Tobacco: How many years used: 40 Electronic Cigarette Use: not used second hand exposure: Yes quit status: has quit before alcohol intake: never what type of physical activity do you participate in: walking and other details: golf do you feel safe at home: Yes ROS ROS ED Constitutional Constitutional ED: Denies chills, fever(s) or sweats Eyes Eyes: Denies change in vision ENT ENT ED: Denies dysphagia or sore throat Cardiovascular Cardiovascular: Denies chest pain, leg edema, palpitations or racing heartbeat Respiratory/Chest Respiratory/Chest: Denies cough, dyspnea or dyspnea on exertion Gastrointestinal Gastrointestinal: Denies abdominal pain, diarrhea, nausea or vomiting Genitourinary Genitourinary ED: Denies dysuria, hematuria or urinary frequency Musculoskeletal Musculoskeletal: Denies back pain, extremity pain or neck pain Integumentary Denies rash or wounds Neurologic Neurologic: Reports headache(s); Denies paresthesias or weakness EXAM Physical Exam Const Vital Signs: 07/04/23 18:43 07/04/23 19:09 07/04/23 20:20 Temperature 96.8 F L 97.1 F L Temperature Source Temporal Pulse Rate 84 64 Respiratory Rate 17 16 Respiratory Effort Normal Blood Pressure 142/70 H 134/64 H Blood Pressure Mean 94 87 Pulse Ox 96 98 Oxygen Delivery Method Room Air Room Air Positive well nourished and well developed Constitutional Narrative: GCS 15. General Appearance ED: well developed and NAD HEENT Reports moist mucous membranes HEENT Narrative: Slight swelling posterior crown region, no lacerations. normocephalic Eyes PERRL, EOMs intact bilaterally and conjunctivae normal General Eye ED: Yes normal appearance of both eyes Neck no lymphadenopathy and supple General: Negative for tenderness Chest Wall Chest: Negative for tenderness Resp normal respiratory effort and normal air movement Effort and Inspection: symmetric chest movement; Negative for respiratory distress Cardio regular rate, regular rhythm and no murmurs Peripheral Pulses: pulses 2+ throughout GI normal to inspection, nondistended, normoactive bowel sounds and non-tender Palpation: Negative for guarding or rebound tenderness present Back/Spine no CVA tenderness and no thoracic nor lumbar tenderness Extremity normal to inspection General Extremety ED: Negative for edema or tenderness General Extremity: Negative for edema Neuro oriented x3, CN's II-XII intact bilaterally and no sensory deficits noted Sensorium / Orientation: awake and alert Skin no rashes or lesions noted and no wounds MDM MDM MDM Narrative Medical decision making narrative: Interventions / MDM: Differential diagnosis: Head injury, scalp contusion, concussion Diagnosis considered but do not suspect: Intracranial hemorrhage however CT negative. My EKG interpretation: N/A Imaging independently reviewed and interpreted by myself: CT brain: No acute process also read by radiology. External documents reviewed: N/A Test considered but not ordered:N/A ED course: Patient mechanical fall head injury. History of intracranial hemorrhage. No focal deficits. CT scan ordered for further evaluation. CT negative. No other injuries. Started on Tylenol in the ED. Outpatient follow-up with PCP. All all questions were answered. Re-evaluation: stable Disposition discussed with patient/family/significant other: Patient significant other Case discussed with consulting clinician: N/A This note was generated with [employer] dictation software. It may contain incorrect words, spelling, and punctuation that were not noted in checking the note before signing. Radiography Diagnostic Testing: Clinical Impression(s) from Imaging Studies Brain CT 07/04/23 19:18 IMPRESSION: Chronic involutional changes of the brain. Electronically Signed: Gabino Bhakta MD at 19:47 EDT Reading Location ID and State: [address] [place] [address] Tel , Service support , Discharge Plan Triage Chief Complaint: Fall ED Provider: Lamont Escobedo Dx/Rx/DC Orders Clinical Impression: CHI (closed head injury), Contusion of scalp, Fall Instructions: ED Head Injury (Adult) Prescriptions: No Action cholecalciferol (vitamin D3) [D3-2000] 50 mcg (2,000 unit) capsule 50 mcg PO DAILY carbidopa-levodopa 25-100 mg tablet 1 tab PO BID acetaminophen 500 mg Tablet 1,000 mg PO Q6H PRN PRN (Reason: Pain Score 1-10) Qty: 0 0RF rosuvastatin 10 mg tablet 10 mg PO DAILY Patient Comments: take 1 tablet by mouth once daily hydrocodone-acetaminophen [hydrocodone-acetaminophen] 5-325 mg tablet 1 tab PO Q6H PRN PRN (Reason: Pain) 3 Days Qty: 10 0RF Primary Care Provider: Dmitry Monteiro Referrals: Dmitry Monteiro MD [Primary Care Provider] - 1 Week Activity Restrictions/Additional Instructions: CT brain negative. Use Tylenol up to 1 g every 6 hours as needed. Follow-up with your doctor. Disposition Disposition: Home, Self Care Discharge Date/Time: 07/04/23 20:23
[2023-07-04 19:08] VITALS: BMI 26.3
--- NOTE | 2023-07-04 19:18 | CT_ITS ---
STUDY: CT BRAIN WITHOUT CONTRAST REASON FOR EXAM: Female, 78 years old. head injury RADIATION DOSAGE (If Supplied By Facility): CTDIvol = ( 44.99 ) mGy, DLP = ( 812.98 ) mGycm TECHNIQUE: Transaxial CT imaging of the brain was performed without administration of intravenous contrast material. Individualized dose optimization techniques were used for this CT. COMPARISON: No relevant priors. FINDINGS: Normal soft tissue structures. Normal calvarium. There is moderate cerebral atrophy with widening of the extra-axial spaces and ventricular dilatation. There are areas of decreased attenuation within the white matter tracts of the supratentorial brain, consistent with microvascular disease changes. Normal basal ganglia and thalami. Normal brainstem. Normal cerebellum. There is no intracranial hemorrhage. There are no findings of an acute ischemic infarction. Normal visualized paranasal sinuses. CT/Brain/Head without Contrast IMPRESSION: Chronic involutional changes of the brain. Electronically Signed: Gabino Bhakta MD at 19:47 EDT ,
[2023-07-04] MEDS: Acetaminophen 325 MG Tablet 650 MG PO (20:18)
[2023-07-04 20:20] VITALS: BP 134/64; PULSE 64; RESP 16; TEMP 36.2; O2SAT 98
== END 2023-07-04 20:23 | disposition home or self-care (01) ==
PROVIDERS: Emergency Provider Emergency Medicine; PCP Family Medicine; Visit Provider Emergency Medicine
DX: S09.90XA Unspecified injury of head, initial encounter (principal); G20.A1 Parkinson's disease without dyskinesia, without mention of fluctuations; S00.03XA Contusion of scalp, initial encounter; Z87.891 Personal history of nicotine dependence; E78.00 Pure hypercholesterolemia, unspecified; I10 Essential (primary) hypertension; W01.0XXA Fall on same level from slipping, tripping and stumbling without subsequent striking against object, initial encounter
CPT/HCPCS: 70450; 99282

== ENCOUNTER → 2023-07-12 | Outpatient (CLI) | payer MEDICARE, OTHER, SELFPAY ==
--- NOTE | 2023-07-12 14:21 | RAD_ITS ---
INDICATION: COUGH EXAMINATION/TECHNIQUE: X-RAY - XR Chest 2 Views COMPARISON: No previous relevant examinations available for comparison.. FINDINGS: LIFE-SUPPORT AND LINES: 1. None HEART AND VESSELS: The cardiac silhouette, pulmonary vasculature have normal appearance. No evidence of congestive failure. LUNGS AND PLEURAL SPACES: Lungs are clear. No focal infiltrate, consolidation or effusions. No evidence of pneumothorax. No pulmonary mass is noted. MEDIASTINUM AND HILAR REGIONS: No masses adenopathy noted. No areas of calcification. Visualized upper airway is normal in position. BONY ELEMENTS: [Reverse shoulder arthroplasty with normal alignment. No acute bony changes noted. RAD/Chest PA and Lateral IMPRESSION: 1. No evidence of acute cardiopulmonary process Electronically Signed: Gabino Gordon MD at 20:00 EDT ,
== END | disposition home or self-care (01) ==
PROVIDERS: PCP Family Medicine; Referring Provider Internal Medicine Pulmonary Disease; Visit Provider Internal Medicine Pulmonary Disease
DX: R06.02 Shortness of breath (principal); R05.9 Cough, unspecified
CPT/HCPCS: 71046; 87015; 87116; 87206

== ENCOUNTER → 2023-07-15 | Outpatient (CLI) | payer MEDICARE, OTHER, SELFPAY ==
--- NOTE | 2023-07-15 08:33 | MRI_ITS ---
ACR Level 3 findings have been noted. An addendum which confirms receipt of the report will follow. HISTORY: DDD, WEDGE COMPRESSION FRACTURE L2. TECHNIQUE: Multiplanar and multisequence MR images of the lumbar spine were obtained without intravenous contrast. 202 images. COMPARISON: XR 06/25/2023, MR 09/02/2018. FINDINGS: VERTEBRAE: Mild loss of height at the superior endplate of T2 with a Schmorl''s node on the localizer images. T12 vertebral body hemangioma again seen. Chronic mild L2 compression fracture with a Schmorl''s node of the superior endplate. Mild degenerative bone marrow endplate changes of L1-2. Bone marrow edema of S2-4 with angulation of the cortex at S3. Defect from left hip arthroplasty. ALIGNMENT: No anterior or posterior subluxation. SPINAL CANAL: Normal morphology and position of the conus medullaris at the lower L1 level. No gross epidural collection. INTERVERTEBRAL DISCS: Disc bulges with facet arthropathy at multiple levels. T11-12: Minimal narrowing of the thecal sac and mild-moderate bilateral foraminal narrowing based on sagittal images. T12-L1: Minimal narrowing of the thecal sac and mild bilateral foraminal narrowing, progressed from prior. L1-2, L2-3: Minimal narrowing of the thecal sac and moderate bilateral foraminal narrowing, progressed from prior. L3-4: Minimal narrowing of the thecal sac and moderate bilateral foraminal narrowing with bilateral L3 nerve root abutment, progressed from prior. L4-5: Minimal narrowing of the thecal sac and moderate bilateral foraminal narrowing with right L4 nerve root abutment, similar to prior. L5-S1: Minimal narrowing of the thecal sac with moderate or severe bilateral foraminal narrowing and bilateral L5 nerve root impingement, progressed from prior. SOFT TISSUES: Mild presacral edema. Small bilateral renal cysts. MRI/Spine Lumbar (Routine) IMPRESSION: Mild T2 compression fracture, incompletely imaged. Consider CT thoracic spine. Acute nondisplaced sacral fracture. Chronic mild L2 compression fracture. Mild interval progression of multilevel degenerative disc disease as above. Electronically Signed: Yanni Arredondo MD at 15:53 EDT ,
== END | disposition home or self-care (01) ==
LOC: MRI 14:19
PROVIDERS: PCP Family Medicine; Referring Provider Orthopaedic Surgery Orthopaedic Surgery of the Spine; Visit Provider Orthopaedic Surgery Orthopaedic Surgery of the Spine
DX: M51.36 Other intervertebral disc degeneration, lumbar region (principal)
CPT/HCPCS: 72148

== ENCOUNTER → 2023-09-03 | Outpatient (CLI) | payer MEDICARE, OTHER, SELFPAY ==
[2023-09-03 14:45] LABS: Bacteria 0 SEEN /hpf (None Seen); Mucous, Urine 0 SEEN /hpf (<or=2+); Red Blood Cells-Urine 0 SEEN /hpf (0-5); Squamous Epithelial Cells - UA 0 SEEN /hpf (5-10); White Blood Cells 0 SEEN /hpf (0-5)
[2023-09-03 18:14] LABS: Color, Urine Straw (Yellow); Glucose, Dipstick Normal (Normal); Ketone-Dipstick Negative (Negative); Leukocyte Esterase-Dipstick Negative /ul (Negative); Nitrite-Dipstick Negative (Negative); Occult Blood-Urine 25 /ul (Negative); Protein-Dipstick Negative (Negative); Urine Bilirubin Dipstick Negative (Negative); Urine Clarity Clear (Clear); Urine Urobilinogen Normal (Normal)
== END | disposition home or self-care (01) ==
LOC: LABSPEC 14:42
PROVIDERS: PCP Family Medicine; Visit Provider Family Medicine
DX: R29.6 Repeated falls (principal)
CPT/HCPCS: 81001

== ENCOUNTER → 2023-09-06 | Outpatient (CLI) | payer MEDICARE, OTHER, SELFPAY ==
[2023-09-06 09:11] LABS: Bacteria 0 SEEN /hpf (None Seen); Mucous, Urine 0 SEEN /hpf (<or=2+)
[2023-09-06 10:08] LABS: Color, Urine Yellow (Yellow); Glucose, Dipstick Normal (Normal); Ketone-Dipstick Negative (Negative); Leukocyte Esterase-Dipstick 25 /ul (Negative); Nitrite-Dipstick Negative (Negative); Occult Blood-Urine 25 /ul (Negative); Protein-Dipstick Negative (Negative); Urine Bilirubin Dipstick Negative (Negative); Urine Clarity Clear (Clear); Urine Urobilinogen Normal (Normal)
[2023-09-06 10:36] LABS: Red Blood Cells-Urine 0-5 SEEN /hpf (0-5); White Blood Cells 0-5 SEEN /hpf (0-5)
[2023-09-06 10:37] LABS: Squamous Epithelial Cells - UA 0-5 SEEN /hpf (5-10)
== END | disposition home or self-care (01) ==
LOC: MTLAB 08:35
PROVIDERS: PCP Family Medicine; Referring Provider Family Medicine; Visit Provider Family Medicine
DX: R29.6 Repeated falls (principal)
CPT/HCPCS: 81001

== ENCOUNTER 2023-09-23 10:30 | Outpatient (RCR) | payer MEDICARE, OTHER, SELFPAY ==
--- NOTE | 2023-07-15 12:59 | HP.PTEVAL ---
Patient's Visit Information Visit Information Visit Information: RAMOS PADRON is a 78 year old F referred to Physical Therapy by Dr. Donavan Sandhu MD with a diagnosis of Lumbar Strain. Date of Evaluation: 07/15/23 Physical Therapist: Mary Lou Rivera DPT Visit Plan Frequency: 2x /Week Duration: 4-6 Weeks Plan: Hold- pending MRI results then pt will follow up with PT. Then 2x a week for 4 weeks for core strength/stabilization- start with mat exercises with progression to chair exercises. Subjective Subjective: Patient reports that she fell 3-4 weeks ago- she fell backwards and she hit her back on the shower and she waited a few days. It never really got better- she went and they took x-rays- nothing was broken. But then the back MD looked at it and he decided that he wanted an MRI taken. She is having that taken this afternoon. He wanted her to start therapy for balance and strengthening. She has back pain in the middle of the lumbar spine that comes and goes. She gets it really bad at night. Worst: 11/11 Agg: unknown. Eases: nothing. Best: 06/11. She has no pain that radiates down her legs. She describes the pain as dull and achy. She does not have any N/T in the toes. She uses a U-Step walker all the time. She has had therapy here before- for her balance. She falls a lot due to her Parkinson's. She lives with her who is able to help with all of her ADL's. The last time she fell was yesterday. She goes to the Parkinson's class and plays on her computer. She is a back sleeper and that really bothers her. Her back bothered her before she fell but was not as intense- the pain was up higher before she fell. Objective Objective: Posture: forward head, rounded shoulders, increased kyphosis Gait: very unstable-unsafe- uses a Uwalker- very fast- walker out in front of her and impulsive- short stride length. Palpation: tender along spinous processes of L3-T10- not tender to touch in parapsinals ROM: WFL in all planes of the lumbar spine- mild discomfort end range flexion/extn. No change in pain with repetitive testing Strength: Core: poor, Knee: Extn: 46 Bilateral Flexion: Left: 15 Right: 18 Hip Abd: 22 Add: Left 16 Right: 17 Flexion: 18 bilateral Ankle: 5/5 Flex: HS: severe, Gastroc: moderate Special Tests L/S Slump test left side: Positive L/S Slump test right side: Positive L/S Left Straight Leg Raise: Negative L/S Right Straight Leg Raise: Negative Balance/Special Test Scores Tinetti Balance Score: 4 Oswestry Low Back Score: 26 Goals Goal 1:: Patient will report participation in home exercise program activities a minimum of 5 days per week, as adjunct to skilled physical therapy intervention in preparation for independent home management upon discharge. Goal Time Frame: 4-6 Weeks Goal 2:: Patient will report no falls for 1 weeks Goal Time Frame: 4-6 Weeks Goal 3:: Patient will maintain proper posture t/o tx session to demo increased core s/s Goal Time Frame: 4-6 Weeks Goal 4:: Patient will report 80% improvement Goal Time Frame: 4-6 Weeks Rehabilitation Potential Physical Therapy Diagnosis: Patient presents with hypomobility- she has decreased LE and core strength/stabilization, flex and muscular endurance leading to poor posture, balance and increased pain with ADL's. Rehabilitation Potential: Fair Anticipated Interventions Patient/Client Instruction: Educate patient on: Benefits of Fitness Program Therapeutic Exercise to Include: Strength training, Endurance training, Balance training, Coordination, Agility training, Body mechanics, Postural training, Flexibilty training, Gait and locomotor training, Neuromotor development, Passive ROM, Active ROM, Dynamic Lumbar Stabilization and Scapular Strength/Stabilization Text: Thank you for the opportunity to evaluate your patient. For Medicare and Medicare HMO plans, please review the plan of care and approve it. It will need to be FAXED BACK to us at [phone] for Medicare purposes. For Medicare only, by signing this I certify the plan of care. Please let me know if there are questions or concerns regarding this plan of care. Physician Signature: Date:
[2023-09-02 17:50] LABS: Absolute Lymphocyte Count 2.86 X10^3/uL (0.83-4.51); Absolute Neutrophil Count 5.6 X10^3/uL (2.0-7.7); Basophil# 0.04 X10^3/uL; Basophil% 0.4 % (0-1); Eosinophil# 0.08 X10^3/uL; Eosinophils% 0.8 % (0-5); Hematocrit 47.6 % (37-47); Hemoglobin 15.1 g/dL (12.0-15.0); Lymphocyte # 2.86 X10^3/ul (0.83-4.51); Lymphocyte % 30.1 % (19-41); Mean Corp Hgb Conc 31.7 g/dL (32-36); Mean Corpuscular Hgb 30.4 pg (27.0-32.0); Mean Platelet Vol. 9.7 fl (6.2-12.0); Monocyte# 0.87 X10^3/uL; Monocyte% 9.1 % (0-10); NRBC Flagged by Analyzer 0 % (0-5); Neutrophil # 5.62 X10^3/uL (2.7-7.7); Neutrophil % 59.2 % (47-70); Platelet Count 325 K/mm3 (150-450); RBC Distribution Width CV 13.2 % (11.6-14.6); RBC Distribution Width SD 46.7 fl (35.1-43.9); Red Blood Count 4.96 M/mm3 (4.2-5.4); White Blood Count 9.5 K/mm3 (4.4-11.0)
[2023-09-02 18:08] LABS: Anion Gap 8 (5-15); BUN 18 mg/dL (7-18); BUN/Creat Ratio 21.5 RATIO (10-20); Calcium,Total 9.5 mg/dL (8.5-10.1); Chloride 106 mmol/L (98-107); Creatinine, Serum 0.84 mg/dL (0.55-1.02); EST Glomerular Filtration Rate 70 mL/min (>60); Est Glom Filt Rate - Afr Amer 85 mL/min (>60); Glucose 105 mg/dL (74-106); Potassium 3.7 mmol/L (3.5-5.1); Sodium Level 140 mmol/L (136-145)
--- NOTE | 2023-09-23 11:18 | HP.PTDCSUM_ITS ---
Discharge Summary D/C summary: It has been my pleasure to treat RAMOS PADRON referred by Dr. Donavan Sandhu MD, with the diagnosis of Lumbar Strain for a total of 8 visit(s). Discharge Date: Please see the following information for a summary of their discharge status. Subjective Subjective: Patient reports that she has gotten a lot better with the back pain- she feels that she is 75% better. She is now able to lay on her back without pain and is sleeping again. Pain LB: Pain Intensity (Out of 10): 0 Overall Improvement % Improvement: 75 Objective Objective/Function: Posture: forward head, rounded shoulders, increased kyphosis Gait: very unstable-unsafe- uses a Uwalker- very fast- walker out in front of her and impulsive- short stride length. Palpation: not tender to touch ROM: WFL in all planes of the lumbar spine Strength: Core: fair, Hip:4+/5, Knee: 4+/5, Ankle: 55/ Flex: HS: moderate, Gastroc: moderate Goals Goal 1:: Patient will report participation in home exercise program activities a minimum of 5 days per week, as adjunct to skilled physical therapy intervention in preparation for independent home management upon discharge. Goal Progress: Goal Met Goal 2:: Patient will report no falls for 1 weeks Goal Progress: Not Progressing Goal 3:: Patient will maintain proper posture t/o tx session to demo increased core s/s Goal Progress: Progressing Goal 4:: Patient will report 80% improvement Goal Progress: Progressing Plan Plan: Discharge to [facility] and continue to work through the Parkinsons class 2x a week for 4 weeks for core strength/stabilization- start with mat exercises with progression to chair exercises. She will need a gait belt in standing- FALL RISK D/C Information d/c sentence: If there are questions or concerns regarding this patient's physical therapy, please feel free to call me at [phone]. Thank you for the referral of this patient. Sincerely, Mary Lou Rivera, DPT Balance/Gait/Functional tests Balance/Special Test Scores Tinetti Balance Score: 4 Oswestry Low Back Score: 0 Improvement % Improvement: 75
== END 2023-09-23 19:00 | disposition home or self-care (01) ==
LOC: PT 10:30
PROVIDERS: PCP Family Medicine; Referring Provider Orthopaedic Surgery Orthopaedic Surgery of the Spine; Visit Provider Orthopaedic Surgery Orthopaedic Surgery of the Spine
DX: S39.012D Strain of muscle, fascia and tendon of lower back, subsequent encounter (principal)
CPT/HCPCS: 36415; 80048; 85025; 97110; 97162; 97530

== ENCOUNTER → 2023-10-23 | Outpatient (CLI) | payer MEDICARE, OTHER, SELFPAY ==
[2023-10-23 17:22] LABS: Absolute Lymphocyte Count 3.11 X10^3/uL (0.83-4.51); Absolute Neutrophil Count 5.1 X10^3/uL (2.0-7.7); Basophil# 0.07 X10^3/uL; Basophil% 0.8 % (0-1); Eosinophil# 0.12 X10^3/uL; Eosinophils% 1.3 % (0-5); Hematocrit 46.1 % (37-47); Hemoglobin 15.1 g/dL (12.0-15.0); Lymphocyte # 3.11 X10^3/ul (0.83-4.51); Lymphocyte % 33.8 % (19-41); Mean Corp Hgb Conc 32.8 g/dL (32-36); Mean Corpuscular Hgb 30.6 pg (27.0-32.0); Mean Corpuscular Volume 93.3 fL (81-99); Mean Platelet Vol. 9.8 fl (6.2-12.0); Monocyte# 0.76 X10^3/uL; Monocyte% 8.3 % (0-10); NRBC Flagged by Analyzer 0 % (0-5); Neutrophil # 5.11 X10^3/uL (2.7-7.7); Neutrophil % 55.5 % (47-70); Platelet Count 324 K/mm3 (150-450); RBC Distribution Width CV 13.2 % (11.6-14.6); RBC Distribution Width SD 44.8 fl (35.1-43.9); Red Blood Count 4.94 M/mm3 (4.2-5.4); White Blood Count 9.2 K/mm3 (4.4-11.0)
[2023-10-23 17:40] LABS: ALB/GLOB Ratio 0.9 RATIO (0.9-2.4); AST(SGOT) 12 U/L (15-37); Alanine Aminotransfer ALT/SGPT 9 U/L (13-56); Albumin, Serum 3.5 g/dL (3.2-5.0); Alkaline Phosphatase 93 U/L (45-117); Anion Gap 10 (5-15); BUN 15 mg/dL (7-18); BUN/Creat Ratio 18.3 RATIO (10-20); Calcium,Total 9.4 mg/dL (8.5-10.1); Chloride 107 mmol/L (98-107); Cholesterol 166 mg/dL (200); Creatinine, Serum 0.82 mg/dL (0.55-1.02); EST Glomerular Filtration Rate 72 mL/min (>60); Est Glom Filt Rate - Afr Amer 87 mL/min (>60); Globulin 3.9 g/dL (2.2-4.2); Glucose 101 mg/dL (74-106); High Density Lipoprotein 64 mg/dL; Potassium 3.9 mmol/L (3.5-5.1); Protein, Total 7.4 g/dL (6.4-8.2); Sodium Level 139 mmol/L (136-145); Triglycerides 189 mg/dL; Very Low Density Lipoprotein 38 mg/dL (5-40)
== END | disposition home or self-care (01) ==
LOC: MTLAB 13:57
PROVIDERS: PCP Family Medicine; Referring Provider Family Medicine; Visit Provider Family Medicine
DX: E78.5 Hyperlipidemia, unspecified (principal); G20.A1 Parkinson's disease without dyskinesia, without mention of fluctuations; E55.9 Vitamin D deficiency, unspecified
CPT/HCPCS: 36415; 80053; 80061; 82306; 85025

== ENCOUNTER 2023-11-28 08:37 | Emergency (ER) | payer MEDICARE, OTHER, SELFPAY ==
[2023-11-28 08:37] VITALS: BP 125/63; PULSE 82; RESP 14; TEMP 36.6; O2SAT 94
[2023-11-28 08:46] VITALS: BMI 27.8
--- NOTE | 2023-11-28 09:00 | CT_ITS ---
STUDY: CT CHEST, ABDOMEN T PELVIS WITHOUT CONTRAST REASON FOR EXAM: Female, 78 years old. flank/post rib injury right. Recent fall. RADIATION DOSAGE (If Supplied By Facility): CTDIvol = ( 13.94 ) mGy, DLP = ( 1081.25 ) mGycm TECHNIQUE: Transaxial imaging was performed without the administration of intravenous contrast material. Individualized dose optimization techniques were used for this CT. COMPARISON: Comparison is made with prior CT scan of the chest dated January 31, 2021. FINDINGS: CHEST Focal calcification in the right lobe of the thyroid. Stable 4 mm noncalcified nodule in the anterior aspect of the left upper lobe action axial image #25 There is no demonstrated pleural abnormality. There are calcifications of the coronary arteries. There are small lymph nodes within the mediastinum, which are normal in size and morphology most compatible with reactive lymph hyperplasia. Normal hilar regions. Normal unenhanced pulmonary arteries. There is atherosclerotic calcification of the aortic arch with tortuosity and elongation of the aortic arch and descending thoracic aorta. There are multi-level degenerative changes of the thoracic spine. ABDOMEN Normal liver. Normal gallbladder and extrahepatic biliary system. Normal spleen. Normal pancreas. Normal bilateral adrenal glands. Normal right kidney. Tiny nonobstructive calculus in the lower pole calyx of the left kidney. Normal visualized stomach. Normal small intestine. Gas and fecal material seen in the rectosigmoid colon. The appendix is visualized and appears normal. There is scattered atherosclerotic calcification of the abdominal aorta, without a demonstrated aneurysm. Normal inferior vena cava. Normal retroperitoneum. Normal abdominal wall. There are degenerative changes of the visualized lumbar spine. PELVIS Distended urinary bladder. Status post hysterectomy. There is no pelvic fluid. There is no pelvic lymphadenopathy or mass lesion. Normal visualized pelvic arteries. CT/CT Chest, Abd, Pelvis WO Cont IMPRESSION: Distended urinary bladder. No fracture is seen. Electronically Signed: Max Olsen MD at 10:07 EDT ,
--- NOTE | 2023-11-28 09:04 | EX.ED.GENINJ ---
HPI History of Present Illness Chief Complaint: Back Informant: patient and friend Narrative Narrative: Brought in by her friend mechanical fall 2 days ago. History of Parkinson's syndrome. Ambulates with a walker. States was using the restroom, states sitting down when she missed hitting the commode on her back. No head injuries. No loss of conscious. Denies any anticoagulation medicines. She is able to ambulate with her walker however having increasing pain. [facility] Medical History De Quervain's tenosynovitis, right Osteoarthritis of carpometacarpal joint of right thumb Right hand pain Parkinson disease Acute bronchitis, unspecified URI (upper respiratory infection) Hypertension Carpal tunnel syndrome High cholesterol History of tobacco use Encounter for screening for malignant neoplasm of lung in former smoker who quit in past 15 years with 30 pack year history or greater Endometrial cancer Back pain Difficulty balancing Abnormal bruising Migraines Fatigue Shoulder pain Uterine cancer Home Medications ?Medication ?Instructions ?Recorded ?Last Taken ?Type carbidopa 25 mg-levodopa 100 mg 1 tab PO BID parkisons 11/22/21 Unknown History tablet acetaminophen 500 mg tablet 1,000 mg (2 x 500 mg) PO Q6H PRN 11/29/21 Unknown Rx PRN Pain Score 1-10 #0 tabs cholecalciferol (vitamin D3) 50 50 mcg PO DAILY 03/16/22 Unknown History mcg (2,000 unit) capsule (D3-2000) rosuvastatin 10 mg tablet 10 mg PO DAILY 01/15/23 Unknown History docusate sodium 100 mg capsule 100 mg PO BID #60 caps 11/28/23 Unknown Rx (Colace) tramadol 50 mg tablet 50 mg PO Q6H PRN pain #12 tabs 11/28/23 Unknown Rx Allergy/AdvReac Type Severity Reaction Status Date / Time No Known Allergies Allergy Verified 11/28/23 08:37 Family History Mother CVA (cerebral vascular accident) Hypertension Arthritis Heart disease Father Cancer Skin cancer Sister CVA (cerebral vascular accident) Hypertension Brother Hypertension CVA (cerebral vascular accident) Surgical History History of left shoulder replacement History of hip surgery History of left hip replacement H/O: hysterectomy Social History household members: spouse housing: house Smoking Status: Former smoker quit date: 01/02/15 pack-years: 40 Tobacco: How many years used: 40 Electronic Cigarette Use: not used second hand exposure: Yes quit status: has quit before alcohol intake: never what type of physical activity do you participate in: walking and other details: golf do you feel safe at home: Yes ROS ROS ED Constitutional Constitutional ED: Denies chills, fever(s) or sweats Eyes Eyes: Denies change in vision ENT ENT ED: Denies dysphagia or sore throat Cardiovascular Cardiovascular: Denies chest pain, leg edema, palpitations or racing heartbeat Respiratory/Chest Respiratory/Chest: Denies cough, dyspnea or dyspnea on exertion Gastrointestinal Gastrointestinal: Denies abdominal pain, nausea or vomiting Genitourinary Genitourinary ED: Denies dysuria Musculoskeletal Musculoskeletal: Reports back pain; Denies extremity pain or neck pain Integumentary Denies rash or wounds Neurologic Neurologic: Denies headache(s), paresthesias or weakness EXAM Physical Exam Const Vital Signs: 11/28/23 08:37 11/28/23 11:16 Temperature 98 F Temperature Source Temporal Pulse Rate 82 71 Respiratory Rate 14 16 Blood Pressure 125/63 H Blood Pressure Mean 83 Pulse Ox 94 93 Oxygen Delivery Method Room Air Positive well nourished and well developed Constitutional Narrative: GCS 15 General Appearance ED: well developed and NAD HEENT Reports moist mucous membranes normocephalic and atraumatic Eyes EOMs intact bilaterally and conjunctivae normal General Eye ED: Yes normal appearance of both eyes Neck no lymphadenopathy and supple General: Negative for tenderness Chest Wall inspection of chest normal and palpation of chest normal Chest: Negative for tenderness Resp normal respiratory effort and normal air movement Resp Narrative: Symmetric breath sounds. Effort and Inspection: symmetric chest movement; Negative for respiratory distress Cardio regular rate, regular rhythm and no murmurs Peripheral Pulses: pulses 2+ throughout GI normal to inspection, nondistended, normoactive bowel sounds and non-tender Palpation: Negative for guarding or rebound tenderness present Back/Spine no CVA tenderness Back/Spine Narrative: No midline tenderness of thoracic or lumbar. There is tender palpation right lower posterior ribs with no crepitus. No ecchymosis. Extremity normal to inspection General Extremety ED: Negative for edema or tenderness General Extremity: Negative for edema Neuro oriented x3 and no sensory deficits noted Sensorium / Orientation: awake and alert Skin no rashes or lesions noted and no wounds MDM MDM MDM Narrative Medical decision making narrative: Interventions / MDM: Differential diagnosis: Fracture, contusion Diagnosis considered but do not suspect: Retroperitoneal hemorrhage however CT negative. My EKG interpretation: N/A Imaging independently reviewed and interpreted by myself: CT chest abdomen pel without contrast: Right posterior 12 rib fracture minimal displacement. No pneumothorax. No retroperitoneal hemorrhage. External documents reviewed: N/A Test considered but not ordered:N/A ED course: Patient traumatic injury right lower posterior ribs. Noncontrast CT scan chest abdomen pelvis. Tramadol ordered to help with symptoms. Pain was more controlled on reevaluation. CT scan concerns for right posterior 12th rib fracture. Discussed with radiology findings of this. No retroperitoneal hemorrhage. Patient able to ambulate. Spouse was present. Should be placed on tramadol and stool softeners for constipation prevention. She will follow-up with her PCP. Outpatient follow-up. All questions were answered. Re-evaluation: stable Disposition discussed with patient/family/significant other: Patient and significant other Case discussed with consulting clinician: N/A This note was generated with [employer] dictation software. It may contain incorrect words, spelling, and punctuation that were not noted in checking the note before signing. Radiography Diagnostic Testing: Clinical Impression(s) from Imaging Studies Chest/Abdomen/Pelvis CT 11/28/23 09:00 IMPRESSION: Distended urinary bladder. No fracture is seen. Electronically Signed: Max Olsen MD at 10:07 EDT , ADDENDUM: 11/28/23 1059 IMPRESSION: undefined Discharge Plan Triage Chief Complaint: Back ED Provider: Lamont Escobedo Dx/Rx/DC Orders Clinical Impression: Right rib fracture, Parkinson's disease, Fall Instructions: ED Rib Fracture Prescriptions: New tramadol 50 mg tablet 50 mg PO Q6H PRN (Reason: pain) Qty: 12 0RF docusate sodium [Colace] 100 mg capsule 100 mg PO BID Qty: 60 0RF No Action cholecalciferol (vitamin D3) [D3-2000] 50 mcg (2,000 unit) capsule 50 mcg PO DAILY carbidopa-levodopa 25-100 mg tablet 1 tab PO BID acetaminophen 500 mg Tablet 1,000 mg PO Q6H PRN PRN (Reason: Pain Score 1-10) Qty: 0 0RF rosuvastatin 10 mg tablet 10 mg PO DAILY Patient Comments: take 1 tablet by mouth once daily Primary Care Provider: Dmitry Monteiro Referrals: Dmitry Monteiro MD [Primary Care Provider] - 1-2 Weeks Activity Restrictions/Additional Instructions: CT chest abdomen pelvis notes posterior rib 12 fracture. No other fractures noted. Take pain medicines as prescribed take stool softener after event constipation. Follow-up with your doctor. Print Language: Solomon Islander Disposition Disposition: Home, Self Care Discharge Date/Time: 11/28/23 11:17
[2023-11-28] MEDS: traMADol 50 MG Tablet PO (09:16)
[2023-11-28 11:16] VITALS: PULSE 71; RESP 16; O2SAT 93
== END 2023-11-28 11:17 | disposition home or self-care (01) ==
PROVIDERS: Emergency Provider Emergency Medicine; PCP Family Medicine; Visit Provider Emergency Medicine
DX: S22.31XA Fracture of one rib, right side, initial encounter for closed fracture (principal); G20.A1 Parkinson's disease without dyskinesia, without mention of fluctuations; W19.XXXA Unspecified fall, initial encounter; E78.00 Pure hypercholesterolemia, unspecified; Z85.42 Personal history of malignant neoplasm of other parts of uterus; Z96.642 Presence of left artificial hip joint; Z96.612 Presence of left artificial shoulder joint; Z79.899 Other long term (current) drug therapy; Z87.891 Personal history of nicotine dependence
CPT/HCPCS: 71250; 74176; 99282

== ENCOUNTER 2024-01-22 12:14 | Emergency (ER) | payer MEDICARE, OTHER, SELFPAY ==
[2024-01-22] VITALS (8 sets, daily range): BP systolic 141–159; BP diastolic 71–81; PULSE 78–87; RESP 16–22; TEMP 36.3–36.6; O2SAT 95–98; BMI 26.4
--- NOTE | 2024-01-22 13:05 | RAD_ITS ---
STUDY: X-RAY - RIGHT HUMERUS REASON FOR EXAM: Female, 78 years old. Pain following a fall. TECHNIQUE: 3 view(s) of the humerus. COMPARISON: None. FINDINGS: Anterior inferior dislocation of the right glenohumeral joint. There is no demonstrated fracture or osseous destructive process. Soft tissue swelling RAD/Humerus min 2 Views IMPRESSION: Anterior inferior dislocation of the right glenohumeral joint. Electronically Signed: Max Olsen MD at 13:31 EST ,
--- NOTE | 2024-01-22 13:07 | EDS_ITS ---
HPI History of Present Illness Chief Complaint: Fall Informant: patient and spouse/S.O. Narrative Narrative: 78-year-old female history of Parkinson's presenting to the emergency room following a fall. Patient is a frequent fall her. She fell in the bathroom fatmata ding up against the commode. She notes pain to the right shoulder and a skin tear to the right wrist. She denies hitting her head or having any neck back or leg pain. She states she is not on any blood thinners. She did not damage her glasses. No loss of consciousness. was able to get her up. [facility] Medical History De Quervain's tenosynovitis, right Osteoarthritis of carpometacarpal joint of right thumb Right hand pain Parkinson disease Acute bronchitis, unspecified URI (upper respiratory infection) Hypertension Carpal tunnel syndrome High cholesterol History of tobacco use Encounter for screening for malignant neoplasm of lung in former smoker who quit in past 15 years with 30 pack year history or greater Endometrial cancer Back pain Difficulty balancing Abnormal bruising Migraines Fatigue Shoulder pain Uterine cancer Home Medications ?Medication ?Instructions ?Recorded ?Last Taken ?Type carbidopa 25 mg-levodopa 100 mg 1.5 tab PO TID parkinsons 11/22/21 Unknown History tablet acetaminophen 500 mg tablet 1,000 mg (2 x 500 mg) PO Q6H PRN 11/29/21 Unknown Rx PRN Pain Score 1-10 #0 tabs cholecalciferol (vitamin D3) 50 50 mcg PO DAILY 03/16/22 Unknown History mcg (2,000 unit) capsule (D3-2000) rosuvastatin 10 mg tablet 10 mg PO DAILY 01/15/23 Unknown History docusate sodium 100 mg capsule 100 mg PO BID #60 caps 11/28/23 Unknown Rx (Colace) tramadol 50 mg tablet 50 mg PO Q6H PRN pain #12 tabs 11/28/23 Unknown Rx Allergy/AdvReac Type Severity Reaction Status Date / Time No Known Allergies Allergy Verified 01/22/24 12:17 Family History Mother CVA (cerebral vascular accident) Hypertension Arthritis Heart disease Father Cancer Skin cancer Sister CVA (cerebral vascular accident) Hypertension Brother Hypertension CVA (cerebral vascular accident) Surgical History History of left shoulder replacement History of hip surgery History of left hip replacement H/O: hysterectomy Social History household members: spouse housing: house Smoking Status: Former smoker quit date: 01/02/15 pack-years: 40 Tobacco: How many years used: 40 Electronic Cigarette Use: not used second hand exposure: Yes quit status: has quit before alcohol intake: never what type of physical activity do you participate in: walking and other details: golf do you feel safe at home: Yes ROS ROS ED Constitutional Constitutional ED: Denies chills, fever(s) or weight loss Eyes Eyes: Denies change in vision or diplopia ENT ENT ED: Denies ear pain, rhinorrhea or sore throat Cardiovascular Cardiovascular: Denies chest pain, orthopnea, palpitations or racing heartbeat Respiratory/Chest Respiratory/Chest: Denies cough, dyspnea or orthopnea Gastrointestinal Gastrointestinal: Denies abdominal pain, diarrhea, nausea or vomiting Genitourinary Genitourinary ED: Denies dysuria, hematuria or urinary frequency Musculoskeletal Musculoskeletal: Reports other Details: Right shoulder pain ; Denies arthralgias, back pain, myalgias or neck pain Integumentary Reports other Details: Skin tear right wrist ; Denies abscess or rash Neurologic Neurologic: Denies headache(s) or weakness Psychiatric Psychiatric: Denies anxiety, depression, suicidal ideation or suicidal thoughts Endocrine Endocrinology: Denies polydipsia, polyphagia or polyuria Allergic/Immunologic Allergic/Immunologic ED: Denies mouth swelling, tongue swelling or urticaria EXAM Physical Exam Const Vital Signs: 01/22/24 12:14 01/22/24 13:12 01/22/24 14:00 Temperature 97.8 F Temperature Source Oral Pulse Rate 78 Pulse Rate [1 (Initial Baseline)] Pulse Rate [2] Pulse Rate [3] Respiratory Rate 16 Respiratory Rate [1 (Initial Baseline)] Respiratory Rate [2] Respiratory Rate [3] Respiratory Effort Normal Non-Labored Respiratory Depth Normal Respiratory Pattern Normal Blood Pressure 145/74 H Blood Pressure [1 (Initial Baseline)] Blood Pressure [2] Blood Pressure [3] Blood Pressure Mean 97 Pulse Ox 95 Oxygen Delivery Method Room Air Oxygen Delivery Method [1 (Initial Baseline)] Oxygen Delivery Method [2] Oxygen Delivery Method [3] Oxygen Flow Rate (L/min) Oxygen Flow Rate (L/min) [1 (Initial Baseline)] Oxygen Flow Rate (L/min) [2] Oxygen Flow Rate (L/min) [3] EtCo2 (Normal 35-45 , high quality CPR 10-20 & ROSC>/=40mmHg 25 EtCo2 (Normal 35-45 , high quality CPR 10-20 & ROSC>/=40mmHg [1 (Initial Baseline)] EtCo2 (Normal 35-45 , high quality CPR 10-20 & ROSC>/=40mmHg [2] EtCo2 (Normal 35-45 , high quality CPR 10-20 & ROSC>/=40mmHg [3] 01/22/24 14:00 01/22/24 14:02 01/22/24 14:12 Temperature 97.8 F Temperature Source Pulse Rate 78 Pulse Rate [1 (Initial Baseline)] 87 Pulse Rate [2] 79 Pulse Rate [3] 80 Respiratory Rate 16 Respiratory Rate [1 (Initial Baseline)] 16 Respiratory Rate [2] 18 Respiratory Rate [3] 18 Respiratory Effort Respiratory Depth Respiratory Pattern Blood Pressure 154/81 H Blood Pressure [1 (Initial Baseline)] 159/74 H Blood Pressure [2] 154/81 H Blood Pressure [3] 145/75 H Blood Pressure Mean Pulse Ox 97 Oxygen Delivery Method Nasal Cannula Nasal Cannula Oxygen Delivery Method [1 (Initial Baseline)] Nasal Cannula Oxygen Delivery Method [2] Nasal Cannula Oxygen Delivery Method [3] Nasal Cannula Oxygen Flow Rate (L/min) 2 2 Oxygen Flow Rate (L/min) [1 (Initial Baseline)] 2 Oxygen Flow Rate (L/min) [2] 2 Oxygen Flow Rate (L/min) [3] 2 EtCo2 (Normal 35-45 , high quality CPR 10-20 & ROSC>/=40mmHg 28 14 EtCo2 (Normal 35-45 , high quality CPR 10-20 & ROSC>/=40mmHg [1 (Initial Baseline)] 24 EtCo2 (Normal 35-45 , high quality CPR 10-20 & ROSC>/=40mmHg [2] 24 EtCo2 (Normal 35-45 , high quality CPR 10-20 & ROSC>/=40mmHg [3] 22 01/22/24 14:17 01/22/24 14:22 01/22/24 14:56 Temperature Temperature Source Pulse Rate 87 Pulse Rate [1 (Initial Baseline)] Pulse Rate [2] Pulse Rate [3] Respiratory Rate 22 H Respiratory Rate [1 (Initial Baseline)] Respiratory Rate [2] Respiratory Rate [3] Respiratory Effort Respiratory Depth Respiratory Pattern Blood Pressure 141/77 H Blood Pressure [1 (Initial Baseline)] Blood Pressure [2] Blood Pressure [3] Blood Pressure Mean 98 Pulse Ox 95 Oxygen Delivery Method Room Air Room Air Room Air Oxygen Delivery Method [1 (Initial Baseline)] Oxygen Delivery Method [2] Oxygen Delivery Method [3] Oxygen Flow Rate (L/min) Oxygen Flow Rate (L/min) [1 (Initial Baseline)] Oxygen Flow Rate (L/min) [2] Oxygen Flow Rate (L/min) [3] EtCo2 (Normal 35-45 , high quality CPR 10-20 & ROSC>/=40mmHg 18 EtCo2 (Normal 35-45 , high quality CPR 10-20 & ROSC>/=40mmHg [1 (Initial Baseline)] EtCo2 (Normal 35-45 , high quality CPR 10-20 & ROSC>/=40mmHg [2] EtCo2 (Normal 35-45 , high quality CPR 10-20 & ROSC>/=40mmHg [3] Positive well nourished and well developed General Appearance ED: well developed and NAD HEENT Reports normocephalic, head/scalp atraumatic and moist mucous membranes Eyes PERRL and EOMs intact bilaterally Neck no lymphadenopathy, supple and no JVD Resp normal respiratory effort and clear to auscultation bilaterally Cardio regular rate, regular rhythm and no murmurs GI normal to inspection, nondistended, normoactive bowel sounds and non-tender Palpation: soft Back/Spine no CVA tenderness and normal ROM Extremity Extremity Narrative: Limited range of motion of the right shoulder. Tender to palpation over the proximal humerus. +empty sulcus Biceps palpates intact. No clavicular tenderness. No AC joint tenderness. NVI distal General Extremety ED: Negative for edema General Extremity: Negative for edema Neuro oriented x3 and CN's II-XII intact bilaterally Sensorium / Orientation: alert Motor Exam: strength 5/5 throughout Psych mental status grossly normal Mood & Affect: Negative for depressed or tearful Skin no rashes or lesions noted Skin Narrative: 3 cm skin tear to the right medial dorsal wrist. Wound edges are approximated once cleaned. Bleeding controlled. MDM MDM MDM Narrative Medical decision making narrative: Differential diagnosis includes but not limited to shoulder fracture dislocation clavicular injury rotator cuff injury muscle ligamentous injury neurovascular injury skin tear The wound was washed and explored. I was able to smooth out the wound edges Dermabond them and place with adequate wound covering. Wound was then dressed with Mena. Plan of interpretation of the plain films of the right humerus is inferior anterior dislocation. Patient provided verbal and has been provided written consent for the use of propofol for procedural sedation. Patient received 0.5 mg/kg propofol bolus and adequate sedation was achieved. Using Milch technique the shoulder was reduced. She was placed in a sling and swath. My independent interpretation of the post procedure films is adequate reduction of dislocation. No fracture identified. has concerns about being able to care for her at home. I would have social work visit with him. Patient utilizes a walker device at home and needs both arms to utilize it. is very concerned about his ability to get her to the bathroom and daily activi ties. Because of these concerns and her underlying Parkinson's and now with her right arm being immobilized I think the safest thing for the patient would be placement. PT OT can work with her at the nurse and home. History & Record Review Discussion w/independent historian: Patient and Significant other Radiography Diagnostic Testing: Clinical Impression(s) from Imaging Studies Humerus X-Ray 01/22/24 13:05 IMPRESSION: Anterior inferior dislocation of the right glenohumeral joint. Electronically Signed: Max Olsen MD at 13:31 EST , Shoulder X-Ray 01/22/24 14:10 IMPRESSION: Satisfactory reduction of the glenohumeral joint. Electronically Signed: Max Olsen MD at 14:31 EST , Discharge Plan Triage Chief Complaint: Fall ED Provider: Lázaro River Dx/Rx/DC Orders Clinical Impression: Tear of skin of wrist, Dislocation of shoulder, right, closed, Fall Instructions: ED Dislocation: Shoulder (Reduced), ED Laceration, Skin Adhesive Prescriptions: No Action cholecalciferol (vitamin D3) [D3-2000] 50 mcg (2,000 unit) capsule 50 mcg PO DAILY carbidopa-levodopa 25-100 mg tablet 1.5 tab PO TID acetaminophen 500 mg Tablet 1,000 mg PO Q6H PRN PRN (Reason: Pain Score 1-10) Qty: 0 0RF rosuvastatin 10 mg tablet 10 mg PO DAILY Patient Comments: take 1 tablet by mouth once daily tramadol 50 mg tablet 50 mg PO Q6H PRN (Reason: pain) Qty: 12 0RF docusate sodium [Colace] 100 mg capsule 100 mg PO BID Qty: 60 0RF Primary Care Provider: Dmitry Monteiro Referrals: Dmitry Monteiro MD [Primary Care Provider] - Mariano David DO [Med Staff - Active Staff] - As soon as possible (for orthopedics or MD of your choice) Print Language: Portuguese
[2024-01-22] MEDS: oxyCODONE 5 MG Tablet PO (13:09)
[2024-01-22] MEDS: Propofol 200 MG/20 ML Vial IV BOLUS (14:10)
--- NOTE | 2024-01-22 14:10 | RAD_ITS ---
STUDY: X-RAY - RIGHT SHOULDER REASON FOR EXAM: Female, 78 years old. Reduction TECHNIQUE: 2 view(s) of the shoulder. COMPARISON: Comparison is made with prior study done earlier today. FINDINGS: Satisfactory reduction of the glenohumeral joint. There is hypertrophic osteoarthrosis of the acromioclavicular joint with inferior osseous spur formation. Normal acromion. Degenerative changes of the humeral head. The soft tissue structures are unremarkable. Normal visualized pulmonary apex. RAD/Shoulder min 2 Views IMPRESSION: Satisfactory reduction of the glenohumeral joint. Electronically Signed: Max Olsen MD at 14:31 EST ,
--- NOTE | 2024-01-22 19:16 | CM.ED ---
Social Work Reason for Consult: higher care needs at home Referral Source: nursing staff/provider Met with patient and in room, introducing to self and social work role. voiced concern about taking patient home and how will care for patient while one arm is in a sling. reports patient has significant balance issues associated with her Parkinson's diagnosis, and with two good arms still has a tendency to fall/have balance issues. reports to be 80 years old and has limits on how much can physically do. Patient relies on a U walker for ambulation. There is a wheelchair at home, but does not feel even with this will be able to care for patient. SW looked to patient for input and patient did indicate agreement that things may be hard to return home with as primary caregiver. Care options discussed: SNF level of care though this would be private pay for room/board and therapy under part B benefit, skilled HHC, and even touched on private duty HHC. does not feel skilled HHC will be sufficient at needs more than intermittent care/availability. Private duty may be an option, but this will not be immediate as takes time to find an agency with proper staffing. asked about the [facility]. Educated to SNF being private pay due to lack of inpatient stay. Educated to cost of [facility] versus a community based SNF. and patient indicated a community based SNF would be preference due to cost. Printed list of options in patient's geographical region, insurance network, including Medicare quality and star data (from [facility]). Provided list. First choice [facility] - referral made and per Denisse there are no beds available. Updated patient and . Next choices [facility] and [facility]. Asked for a third choice after [facility], which reported would be okay with wherever could accept. Patient wants to stay in [place] if possible, and next on list with higher star ratings was [facility]. and patient okay with referral to [facility]. Referrals made. [facility] - no female beds [facility] - unable to accept patient tonight. [facility] - per [facility], can accept patient this evening, private pay rate of 320 with 14 days paid up front at [phone]. Kori provided nurse to nurse report number. Uploaded discharge instructions, signed medication list and ED summary to [facility], for continuity of care of patient. PASRR screen completed for SNF admission. Plan for [facility], private pay reviewed with patient and . Both in agreement. reports feels can transport patient if has patient use a WC to get to car, and then same at [facility]. Updated nursing and Dr. Webb. Plan: [facility], private pay, PASRR completed. -RICKEY Avalos
== END 2024-01-22 18:36 | disposition skilled nursing facility (03) ==
PROVIDERS: Emergency Provider Emergency Medicine; PCP Family Medicine; Visit Provider Emergency Medicine
DX: S43.014A Anterior dislocation of right humerus, initial encounter (principal); G20.A1 Parkinson's disease without dyskinesia, without mention of fluctuations; S43.034A Inferior dislocation of right humerus, initial encounter; S61.511A Laceration without foreign body of right wrist, initial encounter; W19.XXXA Unspecified fall, initial encounter; Z91.81 History of falling; I10 Essential (primary) hypertension; E78.00 Pure hypercholesterolemia, unspecified; M18.11 Unilateral primary osteoarthritis of first carpometacarpal joint, right hand; Z85.42 Personal history of malignant neoplasm of other parts of uterus; Z96.642 Presence of left artificial hip joint; Z96.612 Presence of left artificial shoulder joint; Z90.710 Acquired absence of both cervix and uterus; Z79.899 Other long term (current) drug therapy; Z87.891 Personal history of nicotine dependence
CPT/HCPCS: 23650; 12002; 73030; 73060; 96374; 99285; J7040; A4216

== ENCOUNTER → 2024-01-23 | Outpatient (REF) | payer MEDICARE, OTHER, SELFPAY ==
[2024-01-23 09:00] LABS: Absolute Neutrophil Count 5.9 X10^3/uL (2.0-7.7); Basophil# 0.04 X10^3/uL; Basophil% 0.4 % (0-1); Eosinophil# 0.08 X10^3/uL; Eosinophils% 0.8 % (0-5); Hematocrit 42.7 % (37-47); Hemoglobin 14.3 g/dL (12.0-15.0); Lymphocyte % 26.2 % (19-41); Mean Corp Hgb Conc 33.5 g/dL (32-36); Mean Corpuscular Hgb 31.2 pg (27.0-32.0); Mean Corpuscular Volume 93.2 fL (81-99); Monocyte% 10.5 % (0-10); NRBC Flagged by Analyzer 0 % (0-5); Neutrophil # 5.87 X10^3/uL (2.7-7.7); Neutrophil % 61.6 % (47-70); Platelet Count 290 K/mm3 (150-450); RBC Distribution Width CV 13.8 % (11.6-14.6); RBC Distribution Width SD 46.5 fl (35.1-43.9); Red Blood Count 4.58 M/mm3 (4.2-5.4); White Blood Count 9.5 K/mm3 (4.4-11.0)
[2024-01-23 09:11] LABS: Vitamin B12 730 pg/mL (211-911); Vitamin D,25 Hydroxy 40.4 ng/mL
[2024-01-23 09:53] LABS: Anion Gap 7 (5-15); BUN 19 mg/dL (7-18); BUN/Creat Ratio 21.9 RATIO (10-20); Chloride 112 mmol/L (98-107); Cholesterol 237 mg/dL (200); Creatinine, Serum 0.87 mg/dL (0.55-1.02); EST Glomerular Filtration Rate 67 mL/min (>60); Est Glom Filt Rate - Afr Amer 81 mL/min (>60); Glucose 105 mg/dL (74-106); High Density Lipoprotein 56 mg/dL; Magnesium 2.4 mg/dL (1.6-2.6); Potassium 3.5 mmol/L (3.5-5.1); Sodium Level 143 mmol/L (136-145); Triglycerides 214 mg/dL; Very Low Density Lipoprotein 43 mg/dL (5-40)
[2024-01-23 10:40] LABS: Hemoglobin A1c 5.5 % (3.8-5.6)
== END ==
LOC: OLS.SW 05:00
PROVIDERS: PCP Family Medicine; Visit Provider Internal Medicine
DX: G20.C Parkinsonism, unspecified (principal); S43.004A Unspecified dislocation of right shoulder joint, initial encounter; E55.9 Vitamin D deficiency, unspecified; Z79.899 Other long term (current) drug therapy
CPT/HCPCS: 36415; 80048; 80061; 82306; 82607; 83036; 83735; 84443; 85025

== ENCOUNTER 2024-01-24 15:26 | Emergency (ER) | payer MEDICARE, OTHER, SELFPAY ==
[2024-01-24 15:28] VITALS: BP 157/79; PULSE 79; RESP 16; TEMP 37.2; O2SAT 98; BMI 27.6
--- NOTE | 2024-01-24 16:22 | EDS_ITS ---
HPI History of Present Illness HPI Narrative: Patient presents with right shoulder pain that began after a fall today. Patient has a history of Parkinson's disease and frequent falls. Patient denies any head injury or loss of consciousness. Patient was seen here recently for dislocation of her right shoulder. Patient is currently wearing a sling and swath. Patient states her pain has resolved. Patient denies any paresthesias or weakness. Patient denies any other injuries. Chief Complaint: Upper Extremity Injury Informant: patient Occured/Mechanism Mechanism/Context: Yes fall Onset/Context/Timing Onset: Today Context: Sudden Onset Timing: Continuous Location: Right shoulder Worsened by: Nothing Relieved by: Nothing Associated Symptoms Associated Symptoms: Negative for Parasthesia, Weakness or Loss of Funtion [facility] Medical History De Quervain's tenosynovitis, right Osteoarthritis of carpometacarpal joint of right thumb Right hand pain Parkinson disease Acute bronchitis, unspecified URI (upper respiratory infection) Hypertension Carpal tunnel syndrome High cholesterol History of tobacco use Encounter for screening for malignant neoplasm of lung in former smoker who quit in past 15 years with 30 pack year history or greater Endometrial cancer Back pain Difficulty balancing Abnormal bruising Migraines Fatigue Shoulder pain Uterine cancer Home Medications ?Medication ?Instructions ?Recorded ?Last Taken ?Type carbidopa 25 mg-levodopa 100 mg 1.5 tab PO TID parkinsons 11/22/21 Unknown History tablet acetaminophen 500 mg tablet 1,000 mg (2 x 500 mg) PO Q6H PRN 11/29/21 Unknown Rx PRN Pain Score 1-10 #0 tabs cholecalciferol (vitamin D3) 50 50 mcg PO DAILY 03/16/22 Unknown History mcg (2,000 unit) capsule (D3-2000) rosuvastatin 10 mg tablet 10 mg PO DAILY 01/15/23 Unknown History Allergy/AdvReac Type Severity Reaction Status Date / Time No Known Allergies Allergy Verified 01/24/24 15:32 Family History Mother CVA (cerebral vascular accident) Hypertension Arthritis Heart disease Father Cancer Skin cancer Sister CVA (cerebral vascular accident) Hypertension Brother Hypertension CVA (cerebral vascular accident) Surgical History History of left shoulder replacement History of hip surgery History of left hip replacement H/O: hysterectomy Social History household members: spouse housing: house Smoking Status: Former smoker quit date: 01/02/15 pack-years: 40 Tobacco: How many years used: 40 Electronic Cigarette Use: not used second hand exposure: Yes quit status: has quit before alcohol intake: never what type of physical activity do you participate in: walking and other details: golf do you feel safe at home: Yes ROS ROS ED Constitutional Constitutional ED: Denies chills or fever(s) Eyes Eyes: Denies blurry vision or change in vision ENT ENT ED: Denies rhinorrhea or sore throat Cardiovascular Cardiovascular: Denies chest pain or palpitations Respiratory/Chest Respiratory/Chest: Denies cough or dyspnea Gastrointestinal Gastrointestinal: Denies nausea or vomiting Genitourinary Genitourinary ED: Denies dysuria or hematuria Musculoskeletal Musculoskeletal: Denies back pain or neck pain Integumentary Denies abscess or rash Neurologic Neurologic: Denies headache(s) or weakness Allergic/Immunologic Allergic/Immunologic ED: Denies mouth swelling or urticaria EXAM Physical Exam Const Vital Signs: 01/24/24 15:28 Temperature 98.9 F Temperature Source Oral Pulse Rate 79 Respiratory Rate 16 Blood Pressure 157/79 H Blood Pressure Mean 105 Pulse Ox 98 Positive well nourished and well developed General Appearance ED: well developed and NAD HEENT Reports moist mucous membranes Neck full ROM and supple Resp normal respiratory effort and clear to auscultation bilaterally Cardio regular rate and regular rhythm GI non-tender and non-distended Palpation: soft Extremity Extremity Narrative: There is mild tenderness of the right shoulder. There is some edema. There is no ecchymosis. There is no bony crepitance or step-off noted. Range of motion was limited in all motions of the right shoulder secondary to pain. Radial pulses are equal bilateral. Strength is 5/5 in the radial, median, and ulnar areas. Sensation was intact to light touch in the radial, median, ulnar, and axillary areas. Neuro oriented x3, CN's II-XII intact bilaterally, moves all extremities, no focal motor deficits and no sensory deficits noted Sensorium / Orientation: alert Motor Exam: strength 5/5 throughout Psych mental status grossly normal MDM MDM MDM Narrative Medical decision making narrative: Differential diagnosis includes proximal humerus fracture, shoulder dislocation, contusion, and sprain. X-rays of the right humerus will be obtained to assess for fracture and dislocation. Radiography Diagnostic Testing: X-rays of the right humerus were obtained. There are 2 views. On my independent interpretation, there is no acute fracture or dislocation noted. There are some degenerative changes of the acromioclavicular joint. Radiologist also interpreted the x-rays and agrees. Treatment and Re-Evaluation Narrative: Patient and spouse were advised of the findings. Patient was instructed to continue wearing her sling as previously instructed. Patient was instructed to use ice to the area. Patient was instructed to follow-up with her primary care physician in 5 to 7 days. Patient and spouse understood and were agreeable with the plan. All questions were answered. Discharge Plan Triage Chief Complaint: Upper Extremity Injury ED Provider: John Webb Dx/Rx/DC Orders Clinical Impression: Contusion of right shoulder, Fall Instructions: ED Contusion, Upper Extremity Prescriptions: No Action cholecalciferol (vitamin D3) [D3-1999] 50 mcg (2,000 unit) capsule 50 mcg PO DAILY carbidopa-levodopa 25-100 mg tablet 1.5 tab PO TID acetaminophen 500 mg Tablet 1,000 mg PO Q6H PRN PRN (Reason: Pain Score 1-10) Qty: 0 0RF rosuvastatin 10 mg tablet 10 mg PO DAILY Patient Comments: take 1 tablet by mouth once daily Primary Care Provider: Dmitry Monteiro Referrals: Dmitry Monteiro MD [Primary Care Provider] - 5-7 Days Print Language: Finnish Disposition Disposition: Home, Self Care
--- NOTE | 2024-01-24 16:32 | RAD_ITS ---
EXAM: XR RIGHT HUMERUS, 2 OR MORE VIEWS CLINICAL INDICATION: Injury/Pain TECHNIQUE: Frontal and lateral views of the right humerus. COMPARISON: No relevant prior studies available. FINDINGS: BONES/JOINTS: No acute fracture or subluxation. Degenerative narrowing and bony spurring of the AC joint. SOFT TISSUES: Normal. No soft tissue swelling or gas. No radiopaque foreign body. RAD/Humerus min 2 Views IMPRESSION: 1. No acute osseous abnormality. 2. Degenerative narrowing and bony spurring of the AC joint. Electronically Signed: Fareed Lovett MD at 16:45 EST ,
[2024-01-24 17:29] VITALS: BP 135/89; PULSE 73; RESP 18; TEMP 36.6; O2SAT 99
--- NOTE | 2024-01-24 21:17 | CM.ED ---
Social work Reason for referral: recent SNF placement from ED Referral source: case find This SW entered patient's room and introduced self and role at [facility]. Patient was lying in bed and welcomed visit. Patient's was at patient's bedside and patient gave permission for SW conversation with patient's in room. Patient stated she fell today in her room at [facility] and patient's found her when he arrived for a visit. Patient stated having right shoulder pain due to her recent dislocation, but was otherwise feeling okay. Patient's stated he would not be interested in sending patient back to [facility], but he knew it would need to be the option for a temporary time. Patient's stated patient would not be able to return home until patient was able to use a walker more successfully to get around the home. Patient agreed, but patient stated she would rather be at home with [facility]. Per patient's 's request, a list of private duty aides were provided. Patient's asked this SW about recommendations, but patient's understood that SW could not give recommendations for facilities or agencies. Patient and her denied further needs at this time. Lara Dias, MEDICAL CLERK, CHILD PSYCHOMETRIST
== END 2024-01-24 17:33 | disposition home or self-care (01) ==
PROVIDERS: Emergency Provider Emergency Medicine; PCP Family Medicine; Referring Provider Emergency Medicine; Visit Provider Emergency Medicine
DX: S40.011A Contusion of right shoulder, initial encounter (principal); G20.A1 Parkinson's disease without dyskinesia, without mention of fluctuations; W19.XXXA Unspecified fall, initial encounter; Z91.81 History of falling; M18.11 Unilateral primary osteoarthritis of first carpometacarpal joint, right hand; E78.00 Pure hypercholesterolemia, unspecified; Z85.42 Personal history of malignant neoplasm of other parts of uterus; Z79.899 Other long term (current) drug therapy; Z96.642 Presence of left artificial hip joint; Z96.612 Presence of left artificial shoulder joint; Z87.891 Personal history of nicotine dependence
CPT/HCPCS: 73060; 99284

== ENCOUNTER → 2024-01-31 05:00 | Outpatient (REF) | payer MEDICARE, OTHER, SELFPAY ==
[2024-01-31 09:07] LABS: Hematocrit 45.1 % (37-47); Hemoglobin 14.4 g/dL (12.0-15.0); Mean Corp Hgb Conc 31.9 g/dL (32-36); Mean Corpuscular Hgb 29.9 pg (27.0-32.0); Mean Corpuscular Volume 93.6 fL (81-99); Mean Platelet Vol. 9.4 fl (6.2-12.0); Platelet Count 388 K/mm3 (150-450); RBC Distribution Width CV 13.2 % (11.6-14.6); RBC Distribution Width SD 45.2 fl (35.1-43.9); Red Blood Count 4.82 M/mm3 (4.2-5.4); White Blood Count 7.4 K/mm3 (4.4-11.0)
[2024-01-31 10:07] LABS: Anion Gap 7 (5-15); BUN 12 mg/dL (7-18); BUN/Creat Ratio 17.2 RATIO (10-20); Calcium,Total 8.8 mg/dL (8.5-10.1); Chloride 109 mmol/L (98-107); EST Glomerular Filtration Rate 86 mL/min (>60); Est Glom Filt Rate - Afr Amer 104 mL/min (>60); Glucose 103 mg/dL (74-106); Magnesium 2.2 mg/dL (1.6-2.6); Potassium 3.3 mmol/L (3.5-5.1); Sodium Level 141 mmol/L (136-145)
== END ==
LOC: OLS.SW 05:00
PROVIDERS: PCP Family Medicine; Visit Provider Internal Medicine
DX: I10 Essential (primary) hypertension (principal)
CPT/HCPCS: 36415; 80048; 83735; 85027

== ENCOUNTER → 2024-02-07 | Outpatient (REF) | payer MEDICARE, OTHER, SELFPAY ==
[2024-02-07 09:18] LABS: Hematocrit 44.3 % (37-47); Hemoglobin 14.3 g/dL (12.0-15.0); Mean Corp Hgb Conc 32.3 g/dL (32-36); Mean Corpuscular Hgb 30.4 pg (27.0-32.0); Mean Corpuscular Volume 94.3 fL (81-99); Mean Platelet Vol. 9.5 fl (6.2-12.0); Platelet Count 409 K/mm3 (150-450); RBC Distribution Width CV 13.4 % (11.6-14.6); RBC Distribution Width SD 46.8 fl (35.1-43.9); White Blood Count 8.2 K/mm3 (4.4-11.0)
[2024-02-07 09:30] LABS: Anion Gap 6 (5-15); BUN 19 mg/dL (7-18); BUN/Creat Ratio 21.9 RATIO (10-20); Calcium,Total 8.8 mg/dL (8.5-10.1); Chloride 110 mmol/L (98-107); Creatinine, Serum 0.87 mg/dL (0.55-1.02); EST Glomerular Filtration Rate 67 mL/min (>60); Est Glom Filt Rate - Afr Amer 81 mL/min (>60); Glucose 104 mg/dL (74-106); Magnesium 2.3 mg/dL (1.6-2.6); Potassium 3.9 mmol/L (3.5-5.1); Sodium Level 142 mmol/L (136-145)
== END ==
LOC: OLS.SW 05:00
PROVIDERS: PCP Family Medicine; Visit Provider Internal Medicine
DX: I10 Essential (primary) hypertension (principal)
CPT/HCPCS: 36415; 80048; 83735; 85027

== ENCOUNTER → 2024-09-08 | Outpatient (REF) | payer MEDICARE, OTHER, SELFPAY ==
[2024-09-08 07:51] LABS: Hematocrit 38.9 % (37-47); Hemoglobin 12.8 g/dL (12.0-15.0); Mean Corp Hgb Conc 32.9 g/dL (32-36); Mean Corpuscular Volume 92.8 fL (81-99); Mean Platelet Vol. 9.3 fl (6.2-12.0); Platelet Count 289 K/mm3 (150-450); RBC Distribution Width CV 14.3 % (11.6-14.6); RBC Distribution Width SD 48.6 fl (35.1-43.9); Red Blood Count 4.19 M/mm3 (4.2-5.4); White Blood Count 6.4 K/mm3 (4.4-11.0)
[2024-09-08 09:30] LABS: Anion Gap 9 (5-15); BUN 12 mg/dL (4-19); BUN/Creat Ratio 12.3 RATIO (10-20); Calcium,Total 8.8 mg/dL (7.6-11.0); Carbon Dioxide 23.5 mmol/L (21.0-32.0); Chloride 106 mmol/L (98-108); Glucose 82 mg/dL (70-99); Potassium 3.8 mmol/L (3.3-5.1); Vitamin D,25 Hydroxy 44.3 ng/mL (30-100)
== END ==
LOC: OLS.WCC 05:00
PROVIDERS: PCP Family Medicine; Visit Provider Family Medicine
DX: E55.9 Vitamin D deficiency, unspecified (principal); I10 Essential (primary) hypertension; Z79.899 Other long term (current) drug therapy
CPT/HCPCS: 36415; 80048; 82306; 85027

== ENCOUNTER 2024-12-17 09:26 | Emergency (ER) | payer MEDICARE, OTHER, SELFPAY ==
[2024-12-17 09:29] VITALS: BP 126/66; PULSE 70; RESP 16; TEMP 36.8; O2SAT 97; BMI 26.2
[2024-12-17 09:36] VITALS: O2SAT 99
--- NOTE | 2024-12-17 10:00 | CT_ITS ---
PROCEDURE: SPINE CERVICAL WITHOUT CONTRAS 12/17/2024 REASON FOR EXAM: INJURY/PAIN TECHNIQUE: Procedure Code: CTS Modality: CT Procedure: SPINE CERVICAL WITHOUT CONTRAS Coronal and Sagittal reconstruction series were provided. One or more dose reduction techniques were used (e.g., Automated exposure control, adjustment of the mA and/or kV according to patient size, use of iterative reconstruction technique. RADIATION DOSE SUMMARY: DLP: 1145 mGycm COMPARISON: None FINDINGS: There is loss of the lordosis. Visualized skull base and craniocervical junction demonstrate no evidence of fracture or dislocation. There is no evidence of cervical spine fracture. Alignment is normal. No soft tissue abnormality is seen. Disc spaces are preserved. Facets are intact. There is a 0.4 cm blastic focus in the right lateral mass of C1. There is a 0.6 cm blastic focus in the right lateral mass of C1. There is a 0.8 by 0.8 cm blastic lesion in the anterior C3 vertebral body. Visualized portions of the lung apices demonstrate no evidence of pneumothorax. Vascular calcifications are noted. C2-C3: There is no significant disc protrusion. There is no lateral recess or foraminal stenosis. There is no central canal stenosis. C3-C4: There is no significant disc protrusion. There is no lateral recess or foraminal stenosis. There is no central canal stenosis. C4-C5: There is no significant disc protrusion. There is no lateral recess or foraminal stenosis. There is no central canal stenosis. C5-C6: There is no significant disc protrusion. There is no lateral recess or foraminal stenosis. There is no central canal stenosis. C6-C7: There is no significant disc protrusion. There is no lateral recess or foraminal stenosis. There is no central canal stenosis. C7-T1: There is no significant disc protrusion. There is no lateral recess or foraminal stenosis. There is no central canal stenosis. CT/Spine Cervical without Contras IMPRESSION: There is loss of the lordosis. There is a 0.4 cm blastic focus in the right lateral mass of C1. There is a 0.6 cm blastic focus in the right lateral mass of C1. There is a 0.8 by 0.8 cm blastic lesion in the anterior C3 vertebral body. Con circulation director whole-body bone scan for further characterization. There is no visible acute traumatic injury. Reading Location: [facility]
--- NOTE | 2024-12-17 10:00 | CT_ITS ---
PROCEDURE: BRAIN/HEAD WITHOUT CONTRAST 12/17/2024 REASON FOR EXAM: INJURY/PAIN Parkinson's disease. Fall. Laceration to the left eye. Neck and back pain. TECHNIQUE: Procedure Code: CTBR Modality: CT Procedure: BRAIN/HEAD WITHOUT CONTRAST Coronal and Sagittal reconstruction series were provided. One or more dose reduction techniques were used (e.g., Automated exposure control, adjustment of the mA and/or kV according to patient size, use of iterative reconstruction technique. RADIATION DOSE SUMMARY: CTDlvol: <50 mGy DLP: 779 mGycm COMPARISON: None FINDINGS: Brain: There is no evidence of hemorrhage, acute ischemia or mass. No extra- axial fluid collection, midline shift or mass effect. Low-density is seen in the periventricular white matter and deep white matter. CSF Spaces: Moderate generalized cerebral atrophy Sinuses/Mastoids: Clear Bones: Fractures of the nasal bones are shown bilaterally with slight angulation right laterally but no displacement. CT/Brain/Head without Contrast IMPRESSION: 1. Nasal bone fractures bilaterally. Slight angulation to the right but no di splacement. 2. No acute intracranial process. Chronic microvascular ischemic changes and volume loss. Reading Location: [id number]
--- NOTE | 2024-12-17 10:01 | EDS_ITS ---
HPI HPI - Fall History of Present Illness Chief Complaint: Fall Occured/Mechanism Occurred: Today Mechanism/Context: Yes same level fall Pain/Injury Pain Location: head, face and neck Worsened by: Nothing Relieved by: Nothing Associated Symptoms Associated Symptoms: Negative for Parasthesias, Weakness or Loss of consciousness Narrative Narrative: Patient presents after a fall that occurred this morning. Patient got up to walk when she fell. Patient has a history of Parkinson's and falls frequently. reports that the staff at the care home found her on the floor. Patient denies any loss of consciousness. states patient's immunizations are up-to-date. Patient does complain of headache and neck pain. Patient is not on any anticoagulants. Patient denies any weakness. Tetanus Immunization: <5 years PFSH PFSH Medical History De Quervain's tenosynovitis, right Osteoarthritis of carpometacarpal joint of right thumb Right hand pain Parkinson disease Acute bronchitis, unspecified URI (upper respiratory infection) Hypertension Carpal tunnel syndrome High cholesterol History of tobacco use Encounter for screening for malignant neoplasm of lung in former smoker who quit in past 15 years with 30 pack year history or greater Endometrial cancer Back pain Difficulty balancing Abnormal bruising Migraines Fatigue Shoulder pain Uterine cancer Home Medications ?Medication ?Instructions ?Recorded ?Last Taken ?Type carbidopa 25 mg-levodopa 100 mg 2 tab PO TID parkinson s 11/22/21 Unknown History tablet acetaminophen 500 mg tablet 1,000 mg (2 x 500 mg) PO Q 6H PRN 11/29/21 Unknown Rx PRN Pain Score 1-10 #0 tabs cholecalciferol (vitamin D3) 50 50 mcg PO DAILY Unknown History mcg (2,000 unit) capsule (D3-2000) atorvastatin 20 mg tablet 20 mg PO QHS HYPERLIPIDEMIA 01/27/24 Unknown History bisacodyl 10 mg rectal suppository 10 mg OH DAILY PRN constipation 12/17/24 Unknown History cephalexin 500 mg capsule 500 mg PO Q6 #40 CAPSULES Unknown Rx dextromethorphan-guaifenesin 10 10 ml PO Q4H PRN cough 12/17/24 Unknown History mg-100 mg/5 mL oral syrup (Chest Congestion Relief DM) loperamide 2 mg tablet (Diamode) 2 mg PO Q6H PRN loose stool 12/17/24 Unknown History magnesium hydroxide 400 mg/5 mL 30 ml PO DAILY PRN sto mach upset 12/17/24 Unknown History oral suspension (Milk of Magnesia) mineral oil 118 ml OH DAILY PRN constipa tion 12/17/24 Unknown History ondansetron HCl 4 mg tablet 4 mg PO Q8H PRN nausea and vomiting 12/17/24 Unknown History rivastigmine tartrate 3 mg capsule 3 mg PO BID CONFUSI ON 12/17/24 Unknown History sodium chloride 0.65 % nasal spray 2 spray intranasal PRN nasal 12/17/24 Unknown History aerosol (Deep Sea Nasal) congestion Allergy/AdvReac Type Severity Reaction Status Date / Time No Known Allergies Allergy Verified 03/09/24 09:04 Family History Mother CVA (cerebral vascular accident) Hypertension Arthritis Heart disease Father Cancer Skin cancer Sister CVA (cerebral vascular accident) Hypertension Brother Hypertension CVA (cerebral vascular accident) Surgical History History of left shoulder replacement History of hip surgery History of left hip replacement H/O: hysterectomy Social History household members: spouse housing: house Smoking Status: Former smoker quit date: 01/02/15 pack-years: 40 Tobacco: How many years used: 40 Electronic Cigarette Use: not used second hand exposure: Yes quit status: has quit before alcohol intake: never what type of physical activity do you participate in: walking and other details: golf do you feel safe at home: Yes ROS ROS ED Constitutional Constitutional ED: Denies chills or fever(s) Respiratory/Chest Respiratory/Chest: Denies cough or dyspnea Gastrointestinal Gastrointestinal: Denies nausea or vomiting Musculoskeletal Musculoskeletal: Reports back pain and neck pain EXAM Physical Exam Const Vital Signs: 12/17/24 09:29 12/17/24 09:36 12/17/24 11:26 Temperature 98.3 F Temperature Source Oral Pulse Rate 70 71 Respiratory Rate 16 Respiratory Effort Normal Respiratory Depth Normal Respiratory Pattern Normal Blood Pressure 126/66 H 127/67 H Blood Pressure Mean 86 87 Pulse Ox 97 99 Oxygen Delivery Method Room Air Room Air Positive well nourished and well developed General Appearance ED: well developed and NAD HEENT HEENT Narrative: There is a 4 cm full-thickness curvilinear laceration over the medial aspect of the left eyebrow. There is mild bleeding noted. There is mild gapping of the wound margins. There is no bony crepitance or step-off. There are no foreign bodies noted. Neck Neck Narrative: There is tenderness over the cervical spine and paraspinal muscles. Cervical collar was in place. Resp normal respiratory effort and clear to auscultation bilaterally Cardio regular rate and regular rhythm GI non-distended GI Narrative: There is mild suprapubic tenderness. There is no rebound or guarding noted. Palpation: soft; Negative for guarding or rebound tenderness present Extremity Extremity Narrative: There is an older abrasion of the anterior medial aspect of the right lower leg. There is some mild surrounding erythema. There is mild warmth noted. There is full range of motion. There is no bony crepitus or step-off. There is no deformity noted. Neuro CN's II-XII intact bilaterally, moves all extremities, no focal motor deficits and no sensory deficits noted Sensorium / Orientation: alert MDM MDM MDM Narrative Medical decision making narrative: Differential diagnosis includes intracranial bleeding, cervical spine fracture, urinary tract infection, closed head injury, and facial laceration. CT scan of the brain will be obtained to assess for intracranial bleeding. CT scan of the cervical spine will be obtained to assess for cervical spine fracture. Urinalysis will be obtained to assess for urinary tract infection and hematuria. Lab Data Labs: Laboratory Results - last 24 hr 12/17/24 11:14 Urine Color Yellow Urine Clarity Sl. Cloudy Urine pH 7.0 Ur Specific [place] 1.010 Urine Protein Negative Urine Glucose (UA) Normal Urine Ketones Negative Urine Occult Blood 50 H Urine Nitrite Positive H Urine Bilirubin Negative Urine Urobilinogen Normal Ur Leukocyte Esterase 500 H Urine RBC 0-5 SEEN Urine WBC 10-25 SEEN Ur Squamous Epith Cells 0-5 SEEN Urine Bacteria 2+ Urine Mucus 0 SEEN Radiography Diagnostic Testing: Clinical Impression(s) from Imaging Studies Brain CT 12/17/24 10:00 IMPRESSION: 1. Nasal bone fractures bilaterally. Slight angulation to the right but no displacement. 2. No acute intracranial process. Chronic microvascular ischemic changes and volume loss. Reading Location: [id number] Cervical Spine CT 12/17/24 10:00 IMPRESSION: There is loss of the lordosis. There is a 0.4 cm blastic focus in the right lateral mass of C1. There is a 0.6 cm blastic focus in the right lateral mass of C1. There is a 0.8 by 0.8 cm blastic lesion in the anterior C3 vertebral body. Consider whole-body bone scan for further characterization. There is no visible acute traumatic injury. Reading Location: [facility] CT scan of the brain was obtained. There is no acute intracranial abnormality. There are chronic changes noted. There is bilateral nasal bone fractures that are minimally displaced. This was interpreted by the radiologist and was also independently reviewed by myself. CT scan of the cervical spine was obtained. There is no acute fracture or spondylolisthesis. There is loss of the lordosis. There is a 0.4 cm blastic focus in the right lateral mass of C1 and a 0.6 cm blastic focus in the right lateral mass of C1 and an 0.8 x 0.8 blastic lesion in the anterior C3 vertebral body. There are some degenerative changes noted. This was interpreted by the radiologist and was also independently reviewed by myself. Treatment and Re-Evaluation Narrative: The wound was cleaned and irrigated with copious amounts of normal saline. The wound was anesthetized with 1% lidocaine with epinephrine locally. The wound was closed with 7 simple interrupted #5-0 nylon sutures under sterile technique. Patient tolerated the procedure well. Bacitracin dressing was applied. Patient and spouse were advised of her findings. Patient was given a dose of Keflex here. Patient was given a prescription for Keflex. Patient was instructed to follow-up with her primary care physician in 5 days for wound check and suture removal. Patient and understood and were agreeable with the plan. All questions were answered. Procedures Lacerations Left eyebrow: Length: 4 cm Depth: Sub Q Shape: Linear Prep: Sterile Conditions and Chlorhexadine Laceration repair: Irrigated, Lidocaine with epi, Local, Skin sutures and Wound explored Number of Sutures/Renee: 7 Suture Information: Ethilon, Simple and 5-0 Discharge Plan Triage Chief Complaint: Fall Other Complaint: Laceration ED Provider: Schwiger,John Dx/Rx/DC Orders Clinical Impression: Facial laceration, Nasal bone fracture, Urinary tract infection, Fall, Cellulitis of right lower leg Instructions: ED Cellulitis, ED Nose Fracture, with X-Ray, ED FACIAL LACERATION Suture Tape, ED Laceration Minimize Scars, ED Cystitis Female Adult Prescriptions: New cephalexin 500 mg capsule 500 mg PO Q6 Qty: 40 0RF No Action cholecalciferol (vitamin D3) [D3-2000] 50 mcg (2,000 unit) capsule 50 mcg PO DAILY atorvastatin 20 mg tablet 20 mg PO QHS carbidopa-levodopa 25-100 mg tablet 2 tab PO TID acetaminophen 500 mg Tablet 1,000 mg PO Q6H PRN PRN (Reason: Pain Score 1-10) Qty: 0 0RF bisacodyl 10 mg suppository 10 mg OH DAILY PRN (Reason: constipation) Patient Comments: 8 HRS AFTER MOM loperamide [Diamode] 2 mg tablet 2 mg PO Q6H PRN (Reason: loose stool) magnesium hydroxide [Milk of Magnesia] 400 mg/5 mL suspension 30 ml PO DAILY PRN (Reason: stomach upset) mineral oil Enema 118 ml OH DAILY PRN (Reason: constipation) rivastigmine tartrate 3 mg capsule 3 mg PO BID dextromethorphan-guaifenesin [Chest Congestion Relief DM] 10-100 mg/5 mL syrup 10 ml PO Q4H PRN (Reason: cough) Deep Sea Nasal 0.65 % aerosol,spray 2 spray intranasal PRN ondansetron HCl 4 mg tablet 4 mg PO Q8H PRN (Reason: nausea and vomiting) Primary Care Provider: Dmitry Monteiro Referrals: Dmitry Monteiro MD [Primary Care Provider, Family Practice] - 5 Days for suture removal Print Language: Slovak Disposition Disposition: Home, Self Care
[2024-12-17] MEDS: Lidocaine 1% /Epi 1:100 (20ml) 20 ML Vial INFILT (10:47)
[2024-12-17 11:20] LABS: Mucous, Urine 0 SEEN /hpf (<or=2+)
[2024-12-17 11:23] LABS: Color, Urine Yellow (Yellow); Glucose, Dipstick Normal (Normal); Ketone-Dipstick Negative (Negative); Leukocyte Esterase-Dipstick 500 /ul (Negative); Nitrite-Dipstick Positive (Negative); Occult Blood-Urine 50 /ul (Negative); Protein-Dipstick Negative (Negative); Specific Gravity, Urine 1.010 (1.002-1.030); Urine Bilirubin Dipstick Negative (Negative)
[2024-12-17 11:26] VITALS: BP 127/67; PULSE 71
[2024-12-17 11:31] LABS: Squamous Epithelial Cells - UA 0-5 SEEN /hpf (5-10)
[2024-12-17 11:32] LABS: Red Blood Cells-Urine 0-5 SEEN /hpf (0-5)
[2024-12-17 12:29] VITALS: BP 127/67; PULSE 71; RESP 16; TEMP 36.8; O2SAT 99
== END 2024-12-17 12:30 | disposition home or self-care (01) ==
PROVIDERS: Emergency Provider Emergency Medicine; PCP Family Medicine; Visit Provider Emergency Medicine
DX: S01.112A Laceration without foreign body of left eyelid and periocular area, initial encounter (principal); G20.A1 Parkinson's disease without dyskinesia, without mention of fluctuations; S02.2XXA Fracture of nasal bones, initial encounter for closed fracture; L03.115 Cellulitis of right lower limb; S80.811A Abrasion, right lower leg, initial encounter; W19.XXXA Unspecified fall, initial encounter; Y92.129 Unspecified place in nursing home as the place of occurrence of the external cause; N39.0 Urinary tract infection, site not specified; E78.00 Pure hypercholesterolemia, unspecified; Z85.42 Personal history of malignant neoplasm of other parts of uterus; Z79.899 Other long term (current) drug therapy; Z87.891 Personal history of nicotine dependence
CPT/HCPCS: 12013; 70450; 72125; 81001; 99285

== ENCOUNTER 2025-02-12 16:54 | Inpatient (IN) | payer MEDICARE, OTHER, SELFPAY ==
[2025-02-12] VITALS (20 sets, daily range): BP systolic 102–134; BP diastolic 47–69; PULSE 68–99; RESP 14–25; TEMP 36.3–38.6; O2SAT 79–95; BMI 24.6; BMI 22.4
--- NOTE | 2025-02-12 17:19 | EX.ED.DYSGE1 ---
HPI History of Present Illness Chief Complaint: Alt LOC Informant: spouse/S.O. Limited: dementia and uncooperative Onset/Context/Timing Onset: Today Context: Sudden Onset Timing: Continuous Quality: Altered mental status Location: Generalized Worsened by: Nothing Relieved by: Nothing Associated Symptoms Associated Symptoms: Fever Narrative Narrative: Patient presents with altered mental status that was noticed today. states that he went to visit her today and she would not respond to him. states she talked to the foster care social worker who noted that she was her normal self around noon and at lunchtime. states the patient is nonverbal. reports patient had a fever of 101.4. states that the when they checked her vitals her heart rate was low and then became very high. denies any nausea or vomiting. did not notice any cough or trouble breathing. [facility] Medical History De Quervain's tenosynovitis, right Osteoarthritis of carpometacarpal joint of right thumb Parkinson disease Hypertension Carpal tunnel syndrome High cholesterol History of tobacco use Encounter for screening for malignant neoplasm of lung in former smoker who quit in past 15 years with 30 pack year history or greater Endometrial cancer Migraines Uterine cancer Home Medications ?Medication ?Instructions ?Recorded ?Last Taken ?Type carbidopa 25 mg-levodopa 100 mg 2 tab PO TID parkinsons 11/22/21 Unknown History tablet acetaminophen 500 mg tablet 1,000 mg (2 x 500 mg) PO Q6H PRN 11/29/21 Unknown Rx PRN Pain Score 1-10 #0 tabs cholecalciferol (vitamin D3) 50 50 mcg PO DAILY 03/16/22 Unknown History mcg (2,000 unit) capsule (D3-2000) atorvastatin 20 mg tablet 20 mg PO QHS HYPERLIPIDEMIA 01/27/24 Unknown History bisacodyl 10 mg rectal suppository 10 mg NV DAILY PRN constipation 12/17/24 Unknown History dextromethorphan-guaifenesin 10 10 ml PO Q4H PRN cough 12/17/24 Unknown History mg-100 mg/5 mL oral syrup (Chest Congestion Relief DM) loperamide 2 mg tablet (Diamode) 2 mg PO Q6H PRN loose stool 12/17/24 Unknown History magnesium hydroxide 400 mg/5 mL 30 ml PO DAILY PRN stomach upset 12/17/24 Unknown History oral suspension (Milk of Magnesia) mineral oil 118 ml NV DAILY PRN constipation 12/17/24 Unknown History ondansetron HCl 4 mg tablet 4 mg PO Q8H PRN nausea and vomiting 12/17/24 Unknown History sodium chloride 0.65 % nasal spray 2 spray intranasal PRN nasal 12/17/24 Unknown History aerosol (Deep Sea Nasal) congestion acetaminophen 325 mg tablet (Pain 650 mg PO Q4H PRN fever or pain 02/12/25 Unknown History Relief (acetaminophen)) darifenacin 7.5 mg tablet,extended 7.5 mg PO DAILY overactive bladder 02/12/25 Unknown History release 24 hr rivastigmine tartrate 1.5 mg 1.5 mg PO BID 02/12/25 Unknown History capsule Allergy/AdvReac Type Severity Reaction Status Date / Time No Known Allergies Allergy Verified 02/12/25 16:58 Family History Mother CVA (cerebral vascular accident) Hypertension Arthritis Heart disease Father Cancer Skin cancer Sister CVA (cerebral vascular accident) Hypertension Brother Hypertension CVA (cerebral vascular accident) Surgical History History of left shoulder replacement History of hip surgery History of left hip replacement H/O: hysterectomy Social History household members: spouse housing: senior care Smoking Status: Former smoker quit date: 01/02/15 pack-years: 40 Tobacco: How many years used: 40 Electronic Cigarette Use: not used second hand exposure: Yes quit status: has quit before alcohol intake: never what type of physical activity do you participate in: walking and other details: golf do you feel safe at home: Yes ROS ROS ED Constitutional Constitutional ED: Reports fever(s); Denies chills Respiratory/Chest Respiratory/Chest: Denies cough or dyspnea Gastrointestinal Gastrointestinal: Denies nausea or vomiting Neurologic Neurologic: Reports weakness EXAM Physical Exam Const Vital Signs: 02/12/25 16:54 02/12/25 16:58 02/12/25 17:05 Temperature 100.3 F H 100.3 F H Temperature Source Oral Axillary Pulse Rate 86 88 Respiratory Rate 20 H 20 H Blood Pressure 132/66 H 129/69 H Blood Pressure Mean 88 89 Pulse Ox 91 89 88 Oxygen Delivery Method Room Air Room Air Room Air Oxygen Flow Rate (L/min) 02/12/25 17:05 02/12/25 17:10 02/12/25 17:15 Temperature Temperature Source Pulse Rate 99 89 Respiratory Rate 14 23 H Blood Pressure 118/60 Blood Pressure Mean 77 Pulse Ox 91 92 93 Oxygen Delivery Method Nasal Cannula Oxygen Flow Rate (L/min) 2 02/12/25 17:25 02/12/25 17:30 02/12/25 17:45 Temperature Temperature Source Pulse Rate 85 84 Respiratory Rate 23 H 23 H Blood Pressure 125/60 H 134/64 H Blood Pressure Mean 78 84 Pulse Ox 95 93 94 Oxygen Delivery Method Nasal Cannula Oxygen Flow Rate (L/min) 2 02/12/25 17:58 02/12/25 18:00 02/12/25 18:00 Temperature 101.5 F H 101.5 F H 101.5 F H Temperature Source Core Core Core Pulse Rate 92 92 92 Respiratory Rate 23 H 23 H Blood Pressure 133/66 H 133/66 H 133/66 H Blood Pressure Mean 88 83 88 Pulse Ox 95 95 95 Oxygen Delivery Method Nasal Cannula Nasal Cannula Oxygen Flow Rate (L/min) 02/12/25 18:47 02/12/25 18:48 02/12/25 19:00 Temperature 101.1 F H Temperature Source Core Pulse Rate 80 Respiratory Rate 25 H Blood Pressure 119/63 Blood Pressure Mean 81 Pulse Ox 79 95 93 Oxygen Delivery Method Nasal Cannula Nasal Cannula Nasal Cannula Oxygen Flow Rate (L/min) 2 3 3 Positive well nourished and well developed General Appearance ED: well developed and NAD HEENT Reports moist mucous membranes Neck supple and no JVD Resp normal respiratory effort and clear to auscultation bilaterally Cardio regular rate and regular rhythm GI non-tender and non-distended Palpation: soft Neuro Motor Exam: general weakness MDM MDM MDM Narrative Medical decision making narrative: Differential diagnosis includes sepsis, urinary tract infection, pneumonia, electrolyte abnormality, dehydration, bronchitis, cardiac dysrhythmia, cardiac ischemia, and viral illness. CT scan of the brain will be obtained to assess for stroke and intracranial bleeding. EKG will be obtained to assess for cardiac dysrhythmia and cardiac ischemia. Chest x-ray will be obtained to assess for pneumonia or bronchitis. CBC will be obtained to assess for leukocytosis and anemia. Basic metabolic profile will be obtained to assess for electrolyte abnormality and renal function. Urinalysis will be obtained to assess for urinary tract infection and hematuria. Serum lactate will be obtained to assess for sepsis. Urine culture will be obtained to assess for urinary tract infection. Blood cultures will be obtained to assess for sepsis. COVID-19, influenza, and RSV PCR will be obtained to assess for viral illness. Lab Data Attestation: I reviewed the patient's lab results. Lab results narrative: CBC was reviewed. There is a mild leukocytosis of 19.4. The remainder is within normal limits. Basic metabolic profile was reviewed. Glucose was mildly elevated at 150. The remainder is within normal limits. Initial high-sensitivity troponin was reviewed and was minimally elevated at 15. Serum lactate was reviewed and was elevated at 2.7. PT with INR and PTT were reviewed. Pro time was 14.0 and INR is 1.1. PTT was normal at 27.2. Urinalysis was reviewed. There is cloudy yellow urine. Leukocyte esterase was 500. There are positive nitrites. Labs: Laboratory Results - last 24 hr 02/12/25 02/12/25 02/12/25 17:30 17:50 19:33 WBC 19.4 H RBC 4.68 Hgb 14.1 Hct 43.1 MCV 92.1 MCH 30.1 MCHC 32.7 RDW Std Deviation 45.2 H RDW Coeff of Annalise 13.4 Plt Count 292 MPV 9.7 Neut % (Auto) Not Reportable Absolute Neuts (auto) 16.9 H Absolute Lymphs (auto) 1.74 Total Counted 100 Neutrophils % (Manual) 85 H Band Neutrophils % 2 Lymphocytes % (Manual) 9 L Monocytes % (Manual) 4 Platelet Estimate ADEQUATE PT 14.0 INR 1.1 APTT 27.2 Sodium 137 Potassium 3.4 Chloride 102 Carbon Dioxide 22.0 Anion Gap 13 BUN 13 Creatinine 0.88 Estim Creat Clear Calc 42.85 L Est GFR (MDRD) Non-Af 66 BUN/Creatinine Ratio 15.2 Glucose 150 H Lactic Acid 2.7 H* Calcium 9.5 Troponin T High Sens 15 H Troponin T Hi Sens 2 Hr 16 H Urine Color Yellow Urine Clarity Cloudy Urine pH 6.0 Ur Specific [place] 1.020 Urine Protein 100 H Urine Glucose (UA) Normal Urine Ketones 5 H Urine Occult Blood 150 H Urine Nitrite Positive H Urine Bilirubin Negative Urine Urobilinogen Normal Ur Leukocyte Esterase 500 H Urine RBC 5-10 SEEN Urine WBC >100 SEEN Ur Squamous Epith Cells 0-5 SEEN Urine Bacteria 3+ Urine Mucus 0 SEEN ABG Data Attestation: I personally reviewed and interpreted this ABG as follows: Interpretation: Arterial blood gases pending. pH was 7.49, pCO2 was low at 29.1, PaO2 was 53.6, and oxygen saturation of 90.6% on room air. ABG results: ABG 02/12/25 17:46 Specimen Type ART Sample Site L Radial pH 7.49 H Bicarbonate Actual 22.4 Total CO2 23 Base Excess -1 O2 Saturation 91 L O2 % 21.0 ABG pCO2 29.1 L ABG pO2 54 L Anselmo Test Positive O2 Delivery Device Room Air Vent Mode Not entered Radiography Chest X-Ray - ED: 2 View, Read by ED Physician, Read by Radiologist and Right Infiltrate Diagnostic Testing: Clinical Impression(s) from Imaging Studies Brain CT 02/12/25 18:20 IMPRESSION: No evidence of acute intracranial pathology. Moderate parenchymal volume loss and chronic microangiopathic changes. Reading Location: [facility] Chest X-Ray 02/12/25 18:23 IMPRESSION: No evidence of acute cardiopulmonary disease. Reading Location: [facility] CT scan of the brain was obtained. There is no acute intracranial abnormality. There are chronic changes noted. This was interpreted by the radiologist. I also independently reviewed the images and did not see any evidence of an intracranial bleed or stroke. PA and lateral chest x-ray was obtained. There are 2 views. On my independent interpretation, lung rain showed a questionable right lower lobe infiltrate. There is normal cardiac silhouette. Bony thorax is normal. There is no acute process noted. Radiologist also interpreted the x-ray and agree with the right lower lobe infiltrate. Treatment and Re-Evaluation :: Patient was started on Rocephin. Patient was also given a dose of Zithromax. Spouse was advised of the findings. Patient was also given a dose of rectal Tylenol. Case was discussed with the hospitalist. She will admit the patient to her service. Family understood and was agreeable with the plan. All questions were answered. Discharge Plan Dx/Rx/DC Orders Clinical Impression: UTI (urinary tract infection), Pneumonia, Sepsis, Hypoxia Disposition Disposition: Acute Care Hospital [facility] Discharge Date/Time: 02/12/25 21:12
--- NOTE | 2025-02-12 17:23 | EKG12_ITS ---
Test Reason : ALT LOC Blood Pressure : */* mmHG Vent. Rate : 84 BPM Atrial Rate : 84 BPM P-R Int : 192 ms QRS Dur : 80 ms QT Int : 364 ms P-R-T Axes : 3 -22 17 degrees QTcB Int : 430 ms Normal sinus rhythm Inferior infarct , age undetermined Abnormal ECG Confirmed by BRINDA HARRINGTON, LESA ([id number]), offline editor WICHO WILLIS ([id number]) on 02/15/2025 6:50:17 AM Referred By: Brenda Fajardo Confirmed By: LESA PARRY MD
--- OUTSIDE RECORDS SUMMARY | 2025-02-12 17:38 | XMS RPT_ITS | CCD ---
Author Organization [facility] Care Team Providers Care Entry Level Sales Representative Name Role Phone NINASHOLA Unavailable Unavailable NINASHOLA Unavailable Unavailable REYNOLD BETANCOURT Unavailable Unavailable SenaitdorinajacintaJanine E Unavailable Lyssa Blackwood Unavailable Jalen Andrews Unavailable Unavailable Unavailable Unavailable Micheal Betancourt Primary Care Provider [phone] Micheal Betancourt Primary Care Provider [phone] Kelvin Pulliam Attending Provider Dr. Winston Saunders Referring Provider [phone] Micheal Betancourt Referring Provider Dr. Winston Saunders Attending Provider [phone] Micheal Betancourt Primary Care Provider Dr. Micheal Betancourt Referring Provider Dr. Winston Saunders Attending Provider [phone] Andrew Menjivar Attending Provider [phone] MICHEAL BETANCOURT MD Primary Care Physician MICHEAL BETANCOURT Primary Care Unavailable JHON ANDREWS Admitting Unavailable JHON ANDREWS Attending Unavailable JHON ANDREWS Consulting Unavailable JHON ANDREWS Attending Unavailable MICHEAL BETANCOURT Primary Care Unavailable Dr. Micheal Betancourt Primary Care Provider [phone] Micheal Betancourt Referring Provider Dr. Andrew Menjivar Attending Provider [phone] Dr. Kelvin Pulliam Attending Provider ECHO Adams Attending Provider Dr. Micheal Betancourt Primary Care Provider Dr. Micheal Betancourt Referring Provider Dr. Winston Saunders Attending Provider Dr. Mariano David Attending Provider Asia, Dr. Burton Primary Care Provider Dr. Micheal Betancourt Referring Provider ECHO Adams Attending Provider Dr. Winston Saunders Attending Provider Dr. Mariano David Attending Provider Dr. Kelvin Pulliam Attending Provider Unavailable Primary Care Provider Unavailabl e PARK, TERRANCE Referring Unavailable SUGAR NAJERA Attending Unavailable PARK, TERRANCE Referring Unavailable PARK, TERRANCE Attending Unavailable PARK, TERRANCE Referring Unavailable PARK, TERRANCE Attending Unavailable PARK, TERRANCE Attending Unavailable PARK, TERRANCE Referring Unavailable CADE, JULIET Referring Unavailable PARK, TERRANCE Attending Unavailable PARK, TERRANCE Referring Unavailable MAGGI GONZALEZ Attending Unavailable Micheal Betancourt Primary Care Provider Yovany GRIFFINN - TRAVEL ACCOMMODATION INSPECTOR, Rabia Unavailable MD Dmitry Burk Primary Care Provider [phone] MD Dmitry Burk Referring Provider [phone] MD Micheal Dawson Attending Provider Bhargavi HARRINGTON, Dmitry Primary Care Provider MD Dmitry Burk Primary Care Provider MD Dmitry Burk Referring Provider MD Micheal Dawson Attending Provider Bhargavi HARRINGTON, Dmitry Primary Care Provider Dr. Donavan Sandhu Attending Provider JULIET CHANEL Referring Unavailable [facility] Unavailable JULIET CHANEL Referring Unavailable BHARGAVI, CHALON Primary Care Unavailable BEBB, JESENIA Attending Unavailable YANIQUE, JULIET Referring Unavailable BHARGAVI, CHALON Primary Care Unavailable BEBB, JESENIA Attending Unavailable YANIQUE, JULIET Referring Unavailable BHARGAVI, CHALON Primary Care Unavailable BEBB, JESENIA Attending Unavailable YANIQUE, JULIET Referring Unavailable BHARGAVI, CHALON Primary Care Unavailable YANIQUE, JULIET Referring Unavailable BHARGAVI, CHALON Primary Care Unavailable YANIQUE, JULIET Referring Unavailable BHARGAVI, CHALON Primary Care Unavailable YANIQUE, JULIET Referring Unavailable BHARGAVI, CHALON Primary Care Unavailable BEBB, JESENIA Attending Unavailable YANIQUE, JULIET Referring Unavailable BHARGAVI, CHALON Primary Care Unavailable YANIQUE, JULIET Referring Unavailable BHARGAVI, CHALON Primary Care Unavailable Alexander HARRINGTON, Ryne Busby Unavailable [phone] BHARGAVI, CHALON Primary Care Unavailable YANIQUE, JULIET Referring Unavailable YANIQUE, JULIET Attending Unavailable BHARGAVI, CHALON Primary Care Unavailable YANIQUE, JULIET Referring Unavailable YANIQUE, JULIET Attending Unavailable Bhargavi HARRINGTON, Dmitry Primary Care Physician Demetrio Hemphill MD Attending Physician UnavailDr. John Jalloh DO Attending Physician Dr. John Webb DO Emergency Department Physi paula John Webb Attending Unavailable John Webb Referring Unavailable Bhargavi, Chalon Primary Care Unavailable Lázaro River Attending Unavailable Bhargavi, Chalon Primary Care Unavailable Taty Schmidt Attending Unavailable Bhargavi, Chalon Primary Care Unavailable Taty Schmidt Attending Unavailable Bhargavi, Chalon Primary Care Unavailable Bhargavi, Chalon Primary Care Unavailable Demetrio Garza Attending Unavailable Taty Schmidt Attending Unavailable Bhargavi, Chalon Primary Care Unavailable Micheal Dawson Attending Unavailable Bhargavi, Chalon Primary Care Unavailable Bhargavi, Chalon Referring Unavailable Micheal Dawson Attending Unavailable Bhargavi, Chalon Referring Unavailable Bhargavi, Chalon Primary Care Unavailable Bhargavi, Chalon Primary Care Unavailable John Webb Attending Unavailable Medications Current Medications Medication Drug Class(es) Dates Sig (Normalized) Sig (Original) acetaminophen 500 mg oral tablet (20 sources) Start: 11-29-2021 take 2 tablets by mouth every six hours as needed for pain Acetaminophen 500 mg Tablet Active 1000 mg PO EVERY 6 HOURS NEEDED as needed for Pain Score 1-10 0 0 November 29, 2021 12:00am Complies with drug therapy Start: 11-29-2021 take 1000 mg by mout h every six hours as needed Acetaminophen Active 1000 MG PO EVERY 6 HOURS NEEDED 0 November 29, 2021 12:00am Start: 11-22-2021 Tylenol 325 mg oral capsule Dose : 650 mg =, Oral, q4h, PRN Pain, scale 1-3, 0 Refill(s) Start Date: 11/22/21 Status: Ordered Start: 11-21-2021 acetaminophen 650 mg CR tablet 1,300 mg. 11/21/2021 Active Start: 11-09-2021 End: 11-29-2021 take 1 tablet by mouth every four hours as needed for pain Acetaminophen (Tylenol Arthritis Pain) 650 mg tablet extended release Discontinued 650 mg PO Q4H as needed for pain 1-3 November 09, 2021 12:00am November 29, 2021 6:48pm Start: 11-09-2021 Tylenol 8 Hour 650 mg oral tablet, extended release Dose : 1,300 mg = 2 tab(s), Oral, BID, PRN as needed for pain, 0 Refill(s) Start Date: 11/21/21 Status: Ordered Start: 07-07-2020 End: 01-31-2021 take 1 tablet by mouth every eight hours Acetaminophen 650 mg tablet extended release Discontinued 650 mg PO Q8H July 07, 2020 12:00am January 31, 2021 2:30pm Start: 07-15-2019 take 1000 mg by mout h three times daily Acetaminophen Active 1000 MG PO THREE TIMES A DAY July 15, 2019 12:00am Comment on above: 1,300 mg. atorvastatin 20 mg oral tablet (2 sources) HMG-CoA Reductase Inhibitor Start: 4 take 1 tablet by mouth at bedtime Atorvastatin 20 mg tablet Active 20 mg PO AT BEDTIME January 27, 2024 1:00am HYPERLIPIDEMIA Complies with drug therapy biotin 1 mg oral capsule (4 sources) Start: 2 take 1 mg by mouth once daily Biotin Active 1 MG PO DAILY April 28, 2021 1:00am bisacodyl 10 mg rectal suppository (2 sources) Stimulant Laxative Start: 5 Bisacodyl 10 mg suppository Active 10 mg RC DAILY as needed for constipation December 17, 2024 12:00am Complies with drug therapy Start: 01-22-2024 bisacodyl (DUL COLAX) 10 mg supp by RECTAL route. 01/22/2024 Active carbidopa 25 mg / levodopa 100 mg oral tablet (20 sources) Aromatic Amino Acid Decarboxylation Inhibitor, Aromatic Amino Acid Start: 11-06-2022 SINEMET PO Takes 25mg-125mg 3X a day 0 11/06/2022 Active Start: 11-22-2021 take 1 tablet by sasha th twice daily Carbidopa-Levodopa Active 1 TABLET PO TWICE A DAY November 22, 2021 3:00pm Start: 11-21-2021 take 1 tablet by sasha th twice daily carbidopa-levodopa 25 mg-100 mg oral tablet Dose = 1 tab(s), Oral, BID Start Date: 11/21/21 Status: Ordered Start: 11-21-2021 End: 01-19-2025 Carbidopa-Levodopa 25-100 mg tablet Active 2 {tbl} PO THREE TIMES A DAY November 22, 2021 3:00pm parkinsons Complies with drug therapy Start: 11-09-2021 End: 11-22-2021 take 1 tablet by mouth once daily, then take 1 tablet by mouth twice daily Carbidopa-Levodopa 25-100 mg tablet Discontinued 1 {tbl} PO .COMPLEX 60 4 November 09, 2021 12:00am November 22, 2021 3:01pm 1 Tab PO daily for one week then 1 tab BID thereafter Start: 11-09-2021 End: 11-22-2021 take 1 tablet by mouth once daily, then take 1 tablet by mouth twice daily Carbidopa-Levodopa Discontinued 1 TABLET PO .COMPLEX 60 November 09, 2021 12:00am November 22, 2021 3:01pm 1 Tab PO daily for one week then 1 tab BID thereafter Comment on above: take 2 & 1/2 tablets by mouth three times a day Carboxymethylcellulose Sodiu m (Theratears) 1 % Dropperette,Gel (12 sources) Start: 11-30-19 Carboxymethylcellulose Sodiu m (Theratears) 1 % Dropperette,Gel Active 1 EACH EACH EYE Q1H 0 November 28, 2021 11:00pm Start: 11-29-2021 Carboxymethylc ellulose Sodium (Theratears) 1 % Dropperette,Gel Active 1 EACH EACH EYE Q1H 0 November 29, 2021 12:00am cephalexin 500 mg oral capsule (1 source) Cephalosporin Antibacterial Start: 12-17-2024 take 1 capsule by mouth every six hours cholecalciferol 0.05 mg oral capsule (20 sources) Vitamin D Start: 03-16-2022 Cholecalciferol (Vitamin D3) (D3-2000) 50 mcg (2,000 unit) capsule Active 50 ug PO DAILY March 16, 2022 1:00am Complies with drug therapy Start: 01-31-2021 End: 11-29-2021 take 1 capsule by mouth once daily Cholecalciferol (Vitamin D3) 25 mcg (1,000 unit) capsule Discontinued 2000 U PO DAILY January 31, 2021 2:29pm November 29, 2021 6:48pm supplement Start: 11-25-2018 End: 01-31-2021 Cholecalciferol (Vitamin D3) 1,000 unit capsule Discontinued 6000 U PO DAILY November 25, 2018 12:00am January 31, 2021 2:31pm supplement Start: 11-25-2018 End: 01-31-2021 take 6000 [IU] by mouth once daily Cholecalciferol (Vitamin D3) Discontinued 6000 UNIT PO DAILY November 25, 2018 12:00am January 31, 2021 2:31pm Cholecalciferol (VITAMIN D3) 2000 UNITS CAPS Take by mouth 0 Active Comment on above: Take by mouth as dir ected. Coenzyme G29-Lcmgvuudjaphx (CO Q-10 PLUS PO) (1 source) Coenzyme L89-Huctnjlwxustg (CO Q-10 PLUS PO) Take by mouth 0 Active dextromethorphan hydrobromide 2 mg/ml / guaiFENesin 20 mg/ml oral solution (1 source) Uncompetitive S-tljpjp-H-aspartate Receptor Antagonist, Sigma-1 Agonist Start: 12-18-19 take 1 mL by mouth every four hours as needed for cough Dextromethorphan-G uaifenesin (Chest Congestion Relief Dm) 10-100 mg/5 mL syrup Active 10 mL PO Q4H as needed for cough December 17, 2024 12:00am Complies with drug therapy guaiFENesin (1 source) GUAIFENESIN ORAL Take 10 mL by mouth as needed. Active ibuprofen 200 mg oral capsule (20 sources) Nonsteroidal Anti-inflammatory Drug Start: 04-28-19 take 200 mg by mouth every six hours Ibuprofen Active 200 MG PO EVERY 6 HOURS April 28, 2021 1:00am Start: 07-07-2020 End: 01-31-2021 take 1 capsule by mouth every six hours as needed Ibuprofen 200 mg capsule Discontinued 200 mg PO EVERY 6 HOURS as needed July 07, 2020 12:00am January 31, 2021 2:30pm take 1 tablet by assha th every six hours as needed ibuprofen (MOTRIN) 200 mg tablet Take 200 mg by mouth every 6 hours as needed. Active Ibuprofen 400mgP RN Active Comment on above: Take 200 mg by mouth every 6 hours as needed. loperamide hydrochloride 2 mg oral tablet (1 source) Opioid Agonist Start: 12-17-2024 take 1 tablet by mouth every six hours as needed Loperamide (Diamode) 2 mg tablet Active 2 mg PO EVERY 6 HOURS as needed for loose stool December 17, 2024 12:00am Complies with drug therapy magnesium hydroxide 80 mg/ml oral suspension (2 sources) Start: 12-17-2024 take 1 mL by mouth once daily as needed Magnesium Hydroxide (Milk Of Magnesia) 400 mg/5 mL suspension Active 30 mL PO DAILY as needed for stomach upset December 17, 2024 12:00am Complies with drug therapy take 30 mL by mouth once daily as needed for constipation magnesium hydroxide (MILK OF MAGNESIA) 4 00 mg/5 mL suspension Take 30 mL by mouth once daily as needed for constipation. Active mineral oil 1000 mg/ml enema (2 sources) Start: 12-17-2024 Mineral Oil en warner Active 118 mL RC DAILY as needed for constipation December 17, 2024 12:00am Complies with drug therapy take 133 mL rectal route once as needed mineral oil (FLEET MINERAL OIL) enema 133 mL by RECTAL route one time only. PRN Active [place] 3-6-9 Fatty Acids (OMEGA-3 & OMEGA-6 FISH OIL PO) (1 source) [place] 3-6-9 Fatt y Acids (OMEGA-3 & OMEGA-6 FISH OIL PO) Take by mouth 0 Active ondansetron 4 mg oral tablet (2 sources) Serotonin-3 Receptor Antagonist Start: take 1 tablet by mouth every eight hours as needed for nausea and vomiting Ondansetron Hcl 4 mg tablet Active 4 mg PO Q8H as needed for nausea and vomiting December 17, 2024 12:00am Complies with drug therapy ondansetron (ZOF RAN) 4 mg tablet Take by mouth every 6 hours as needed for nausea/vomiting. Active rivastigmine 3 mg oral capsule (1 source) Start: 12-17-2024 take 1 capsule by mouth twice daily Rivastigmine Tartrate 3 mg capsule Active 3 mg PO TWICE A DAY December 17, 2024 12:00am CONFUSION Complies with drug therapy sodium chloride 0.111 meq/ml nasal spray (1 source) Start: 12-17-2024 Sodium Chloride ([place] Nasal) 0.65 % aerosol,spray Active 2 NMA INTRANASAL NEEDED December 17, 2024 12:00am nasal congestion Complies with drug therapy 24 hr trospium chloride 60 mg extended release oral capsule (1 source) Cholinergic Muscarinic Antagonist Start: 05-30-2024 take 1 capsule by mouth once daily Trospium (SANCTURA SR) 60 mg cp24 Take 1 capsule by mouth once daily. 05/30/2024 Active ubidecarenone 100 mg / vitamin e 5 unt oral capsule (2 sources) Coenzyme Q10 100 MG capsule Take by mouth daily. 0 Active vitamin b6 50 mg oral tablet (1 source) take 1 tablet by mouth once daily pyridoxine (B-6) 50 MG tablet Take 50 mg by mouth daily 0 Active Completed/Discontinued Medications Medication Drug Class(es) Dates Sig (Normalized) Sig (Original) Acetaminophem 1000mg PRN (5 sources) Acetaminophem 10 00mg PRN Active acetaminophen 325 mg / HYDROcodone bitartrate 5 mg oral tablet (4 sources) Opioid Agonist Start: 06-25-2023 End: 07-24-2023 Hydrocodone-Acetamin ophen 5-325 mg tablet Discontinued 1 {tbl} PO EVERY 6 HOURS NEEDED as needed for Pain 10 3 0 June 25, 2023 July 24, 2023 3:06pm Contusion of lower back and pelvis, initial encounter Injury due to fall Contusion of lower back and pelvis, initial encounter Unspecified fall, initial encounter Start: 06-25-2023 take 1 tablet by sasha th every six hours as needed Hydrocodone-Acetaminophen Active 1 TABLE T PO EVERY 6 HOURS NEEDED 10 3 June 25, 2023 amoxicillin 875 mg / clavulanate 125 mg oral tablet (20 sources) Penicillin-class Antibacterial Start: 11-18-2017 End: 11-27-2017 Amoxicillin-Pot Clavulanate (Augmentin) 875-125 mg tablet Discontinued 1 {tbl} PO Q12H 18 9 0 November 18, 2017 12:00am November 26, 2017 12:00am November 27, 2017 12:06am Acute sinusitis, unspecified azithromycin 250 mg oral tablet (19 sources) Macrolide Antimicrobial Start: 02-22-2022 End: 03-16-2022 Azithromycin 250 mg tablet Discontinued 250 mg PO daily 6 0 February 22, 2022 1:00am March 16, 2022 10:53am 2 tablets today, then 1 tablet daily on days 2 through 5 BALANCE OF NATUARE VITAMIN (20 sources) Start: 11-09-2021 End: 11-29-2021 BALANCE OF NATUARE VITAMIN Discontinued 2 {tbl} PO DAILY November 09, 2021 12:00am November 29, 2021 6:48pm BALANCE OF NATURE VEGGIES BALANCE OF NATURE FRUITS Start: 11-09-2021 End: 11-29-2021 take 2 tablets by mouth once daily BALANCE OF NATUARE VITAMIN Discontinued 2 TABLET PO DAILY November 08, 2021 11:00pm November 29, 2021 5:48pm BALANCE OF NATURE VEGGIES BALANCE OF NATURE FRUITS Start: 11-09-2021 End: 11-29-2021 take 2 tablets by mouth once daily BALANCE OF NATUARE VITAMIN Discontinued 2 TABLET PO DAILY November 09, 2021 12:00am November 29, 2021 6:48pm BALANCE OF NATURE VEGGIES BALANCE OF NATURE FRUITS Start: 11-09-2021 take 2 tablets by mo [facility] once daily BALANCE OF NATUARE VITAMIN Active 2 TABLET PO DAILY November 09, 2021 12:00am BALANCE OF NATURE VEGGIES BALANCE OF NATURE FRUITS carboxymethylcellulose 0.01 mg/mg ophthalmic gel (9 sources) Start: 11-29-2021 End: 01-15-2023 Carboxymethylcellulose Sodium (Theratears) 1 % Dropperette,Gel Discontinued 1 NMA EACH EYE Q1H as needed for DRY EYES 0 0 November 29, 2021 12:00am January 15, 2023 5:45pm Coenzyme L98-Xkeiskt E (17 sources) Start: 03-16-2022 End: 05-03-2023 take 1 capsule by mouth once daily Coenzyme D12-Rnehdnq E Discontinued 1 CAP PO DAILY March 16, 2022 1:00am May 03, 2023 11:00am Start: 03-16-2022 End: 05-03-2023 take 1 capsule by mouth once daily Coenzyme O54-Wvitpou E Discontinued 1 CAP PO DAILY March 16, 2022 12:00am May 03, 2023 10:00am Start: 03-16-2022 take 1 capsule by mo uth once daily Coenzyme B18-Rnsxsnw E Active 1 CAP PO DAILY March 16, 2022 12:00am Start: 03-16-2022 Coenzyme Q10-V itamin E Active CAP PO March 16, 2022 1:00am Start: 03-16-2022 Coenzyme Q10-V itamin E Active CAP PO March 16, 2022 12:00am Coenzyme B11-Trmrkzb E 100-100 mg-unit capsule (1 source) Start: 03-16-2022 End: 05-03-2023 Coenzyme H68-Gxrqsqy E 100-100 mg-unit capsule Discontinued 1 NMA PO DAILY March 16, 2022 1:00am May 03, 2023 11:00am CoQ10 (5 sources) CoQ10 Active docusate sodium 100 mg oral capsule (20 sources) Start: 11-28-2023 End: 01-22-2024 take 1 capsule by mouth twice daily Docusate Sodium (Colace) 100 mg capsule Discontinued 100 mg PO TWICE A DAY 60 0 November 28, 2023 12:00am January 22, 2024 5:10pm Start: 11-22-2021 End: 11-29-2021 take 1 capsule by mouth twice daily as needed Docusate Sodium (Colace) 100 mg Capsule Discontinued 100 mg PO TWICE A DAY as needed for stool softener November 22, 2021 12:00am November 29, 2021 6:49pm Start: 12-25-2019 End: 01-31-2021 take 1 capsule by mouth once daily Docusate Sodium (Colace) 100 mg capsule Discontinued 100 mg PO DAILY December 25, 2019 12:00am January 31, 2021 2:30pm folic acid 0.8 mg oral capsule (20 sources) Start: 12-25-2019 End: 07-07-2020 take 1 capsule by mouth once daily Folic Acid 0.8 mg capsule Discontinued 0.8 mg PO DAILY December 25, 2019 12:00am July 07, 2020 1:22pm Start: 07-15-2019 End: 12-08-2019 take 2 tablets by mouth once daily Folic Acid 1 MG tablet Discontinued 2 mg PO DAILY July 15, 2019 12:00am December 08, 2019 12:05pm supplement Start: 07-15-2019 End: 12-08-2019 take 2 mg by mouth once daily Folic Acid Discontinued 2 MG PO DAILY July 15, 2019 12:00am December 08, 2019 12:05pm iopamidol (ISOVUE-370) 76 % injection 75 mL (1 source) Start: 08-15-2020 End: 08-15-2020 iopamidol (ISOVUE-370) 76 % injection 75 mL meloxicam 15 mg oral tablet (20 sources) Nonsteroidal Anti-inflammatory Drug Start: 02-01-2020 End: 03-16-2020 take 1 tablet by mouth once daily Meloxicam (Mobic) 15 mg tablet Discontinued 15 mg PO DAILY 30 0 February 01, 2020 1:00am March 16, 2020 10:23am DO NOT take in conjunction with Naproxen or other NSAIDS. Tylenol is okay. methylPREDNISolone acetate 40 mg/ml injectable suspension (2 sources) Corticosteroid Start: 03-16-2020 End: 03-16-2020 Depo-Medrol (methylprednisolo ne acetate) 40 mg/mL suspension for injection Discontinued 40 MG INTRAARTIC ONCE March 16, 2020 10:13am March 16, 2020 12:39pm Start: 02-01-2020 End: 02-01-2020 Depo-Medrol (methylprednisol one acetate) 40 mg/mL suspension for injection Discontinued 40 MG intrabursal ONCE February 01, 2020 11:11am February 01, 2020 11:57am naproxen sodium 220 mg oral capsule (20 sources) Nonsteroidal Anti-inflammatory Drug Start: 12-25-2019 End: 03-16-2020 take 1 capsule by mouth twice daily as needed Naproxen Sodium (Aleve) 220 mg capsule Discontinued 220 mg PO TWICE A DAY as needed December 25, 2019 12:00am March 16, 2020 10:24am Naproxen Sodium (ALEVE PO) Take by mouth 0 Active predniSONE 10 mg oral tablet (20 sources) Start: 02-22-2022 End: 03-16-2022 take 1 tablet by mouth twice daily Prednisone 10 mg tablet Discontinued 10 mg PO TWICE A DAY 10 0 February 22, 2022 1:00am March 16, 2022 10:53am Start: 07-07-2020 End: 01-31-2021 Prednisone 10 mg tablet Disc ontinued NMA PO July 07, 2020 12:00am January 31, 2021 2:30pm Start: 07-07-2020 End: 01-31-2021 Prednisone Discontinued TAB PO July 07, 2020 12:00am January 31, 2021 2:30pm rOPINIRole 0.25 mg oral tablet (1 source) Nonergot Dopamine Agonist Start: 09-02-2023 End: 09-16-2023 take 1 tablet by mouth three times daily rOPINIRole (REQUIP) 0.25 mg tablet Take 0.25 mg by mouth three times a day. 0 09/02/2023 09/16/2023 Discontinued rosuvastatin calcium 10 mg oral tablet (20 sources) HMG-CoA Reductase Inhibitor Start: 08-20-2022 End: 01-27-2024 take 1 tablet by mouth once daily Rosuvastatin 10 mg tablet Discontinued 10 mg PO DAILY January 15, 2023 1:00am January 27, 2024 9:31am Comment on above: Take 1 tablet by sasha once daily. simvastatin 20 mg oral tablet (20 sources) HMG-CoA Reductase Inhibitor Start: 11-18-2017 End: 03-16-2022 take 1 tablet by mouth at bedtime Simvastatin 20 mg tablet Discontinued 20 mg PO AT BEDTIME 90 90 0 November 18, 2017 12:00am March 16, 2022 10:53am cholesterol Stool Softner (5 sources) Stool Softner Active traMADol hydrochloride 50 mg oral tablet (1 source) Opioid Agonist Start: 11-28-2023 End: 01-22-2024 take 1 tablet by mouth every six hours as needed for pain Tramadol 50 mg tablet Discontinued 50 mg PO EVERY 6 HOURS as needed for pain 12 November 28, 2023 12:00am January 22, 2024 5:10pm Fracture of rib Fracture of one rib, unspecified side, initial encounter for closed fracture ubidecarenone 10 mg oral capsule (20 sources) Start: 04-28-2021 End: 11-29-2021 Coenzyme Q10 (Co Q-10) 10 mg capsule Discontinued 10 mg PO ONCE April 28, 2021 1:00am November 29, 2021 6:48pm Start: 07-15-2019 End: 01-31-2021 take 10 capsules by mouth once daily Coenzyme Q10 100 MG capsule Discontinued 100 mg PO DAILY July 15, 2019 12:00am January 31, 2021 2:30pm supplement Start: 01-10-2016 coenzyme Q-10 10 MG capsule 1 capsule. 01/10/2016 Active Vitamin D3 5000U (5 sources) Vitamin D3 5000U Active Zinc (20 sources) Start: 12-25-2019 End: 07-07-2020 take 50 mg by mouth once daily Zinc Discontinued 50 MG PO DAILY December 25, 2019 9:32am July 07, 2020 1:22pm Start: 12-25-2019 End: 07-07-2020 take 1 tablet by mouth once daily Zinc 50 mg tablet Discontinued 50 mg PO DAILY December 25, 2019 12:00am July 07, 2020 1:22pm Start: 12-25-2019 End: 07-07-2020 take 50 mg by mouth once daily Zinc Discontinued 50 MG PO DAILY December 24, 2019 11:00pm July 07, 2020 12:22pm Start: 12-25-2019 End: 07-07-2020 take 50 mg by mouth once daily Zinc Discontinued 50 MG PO DAILY December 25, 2019 12:00am July 07, 2020 1:22pm Zinc 50mg Active Problems Active Problems Problem Classification Problem Date Documented Date Episodic/Chronic Acute bronchitis (20 sources) Acute bronchitis; Translations: [Acute bronchitis, unspecified] Episodic Acute cerebrovascular disease (20 sources) Hematoma of subdural space of neuraxis; Translations: [Acute subdural hematoma] Chronic Cancer of other female genital organs (5 sources) History of malignant neoplasm of female genital organ; Translations: [Uterine Cancer] 12-07-2019 Episodic Comment on above: 2014 Cancer of uterus (7 sources) Malignant neoplasm of endometrium of corpus uteri ; Translations: [Malignant neoplasm of endometrium] Onset: 06-24-2013 Chronic Coronary atherosclerosis and other heart disease (4 sources) Disorder of cardiovascular system; Translations: [Atherosclerotic heart disease of resighini coronary artery without angina pectoris] 06-25-2023 Chronic Diseases of white blood cells (1 source) Leukocytosis; Translations: [Elevated white blood cell count, unspecified] Chronic Disorders of lipid metabolism (20 sources) Hypercholesterolemia; Translations: [Hyperlipidemia] 12-07-2019 Chronic E Codes: Fall (20 sources) Fall; Translations: [Unspecified fall, initial encounter] Onset: 11-21-2021 Episodic Essential hypertension (2 sources) Essential (primary) hypertension; Translations: [Essential (primary) hypertension] Onset: 02-07-2024 Chronic Headache; including migraine (1 source) Headache; Translations: [Headache, unspecified] Episodic Immunizations and screening for infectious disease (5 sources) Need for prophylactic vaccination and inoculation against influenza Episodic Intracranial injury (10 sources) Hematoma of subdural space of neuraxis; Translations: [Traumatic subdural hemorrhage with loss of consciousness of unspecified duration, initial encounter] Onset: 11-21-2021 Episodic Malaise and fatigue (20 sources) Asthenia; Translations: [Other malaise] Episodic Miscellaneous mental health disorders (1 source) Psychosomatic factor in physical condition; Translations: [Psychological and behavioral factors associated with disorders or diseases classified elsewhere] 12-13-2022 Chronic Nutritional deficiencies (20 sources) Vitamin D deficiency; Translations: [Vitamin D deficiency, unspecified] Onset: 01-01-2025 Chronic Open wounds of extremities (1 source) Tear of skin; Translations: [Laceration without foreign body of unspecified wrist, initial encounter] 01-30-2024 Episodic Open wounds of head; neck; and trunk (20 sources) Facial laceration ; Translations: [Laceration without foreign body of other part of head, initial encounter] Episodic Osteoarthritis (20 sources) Osteoarthritis of joint of right shoulder region; Translations: [Primary osteoarthritis, right shoulder] 03-16-2020 Chronic Other aftercare (1 source) Other correction (current) drug therapy; Translations: [Other terminal operator (current) drug therapy] Onset: 01-01-2025 Episodic Other and ill-defined cerebrovascular disease (20 sources) Cerebrovascular disease; Translations: [Cerebrovascular disease, unspecified] 11-09-2021 Chronic Other connective tissue disease (2 sources) Muscle weakness (generalized); Translations: [Muscle weakness (generalized)] Onset: 12-13-2022 Episodic Other connective tissue disease (7 sources) Hand pain; Translations: [Pain in right hand] 05-03-2023 Episodic Other connective tissue disease (8 sources) Tenosynovitis of right radial styloid; Translations: [Radial styloid tenosynovitis [de Quervain]] 05-03-2023 Episodic Other connective tissue disease (13 sources) Radial styloid tenosynovitis [de Quervain]; Translations: [Radial styloid tenosynovitis] 05-03-2023 Episodic Other connective tissue disease (13 sources) Pain in right hand; Translations: [Pain in limb] 05-03-2023 Episodic Other connective tissue disease (1 source) Pain in right hand; Translations: [Pain in right hand] 05-03-2023 Episodic Other fractures (3 sources) Compression fracture of L2; Translations: [Wedge compression fracture of second lumbar vertebra, initial encounter for closed fracture] 06-27-2023 Episodic Other fractures (2 sources) Wedge compression fracture of second lumbar vertebra, initial encounter for closed fracture; Translations: [Closed fracture of lumbar vertebra without mention of spinal cord injury] 06-27-2023 Episodic Other fractures (1 source) Fracture of right rib; Translations: [Fracture of one rib, right side, initial encounter for closed fracture] 12-06-2023 Episodic Other fractures (1 source) Fracture of rib; Translations: [Fracture of one rib, unspecified side, initial encounter for closed fracture] 11-28-2023 Episodic Other hereditary and degenerative nervous system conditions (20 sources) Impaired cognition; Translations: [Mild cognitive impairment, so stated] 11-09-2021 Chronic Other hereditary and degenerative nervous system conditions (4 sources) Mild cognitive impairment, so stated; Translations: [Mild cognitive impairment, so stated] Chronic Other hereditary and degenerative nervous system conditions (20 sources) Progressive supranuclear palsy; 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 [Laamgx-Aaodfzgwrp-Bl szewski]] Onset: 12-13-2022 12-13-2022 Chronic Other hereditary and degenerative nervous system conditions (4 sources) 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]; 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 (Javid bellamy)] Onset: 12-13-2022 Chronic Other injuries and conditions due to external causes (20 sources) Injury of rotator cuff; Translations: [Unspecified injury of muscle(s) and tendon(s) of the rotator cuff of unspecified shoulder, initial encounter] 03-16-2020 Episodic Other injuries and conditions due to external causes (20 sources) Closed injury of head; Translations: [Unspecified injury of head, initial encounter] 10-27-2021 Episodic Other injuries and conditions due to external causes (13 sources) Abrasion; Translations: [Other injury of unspecified body region, initial encounter] 09-07-2022 Episodic Other injuries and conditions due to external causes (1 source) Unspecified injury of head, initial encounter; Translations: [Unspecified injury of head, initial encounter] Onset: 12-23-2024 Episodic Other nervous system disorders (20 sources) Polyneuropathy; Translations: [Polyneuropathy, unspecified] 11-09-2021 Chronic Other nervous system disorders (4 sources) Polyneuropathy, unspecified; Translations: [Unspecified hereditary and idiopathic peripheral neuropathy] Chronic Other nervous system disorders (2 sources) Unspecified lack of coordination; Translations: [Unspecified lack of coordination] Onset: 12-13-2022 Episodic Other nutritional; endocrine; and metabolic disorders (5 sources) Body mass index 30+ - obesity; Translations: [BMI 30.0-30.9,adult] 12-07-2019 Chronic Other screening for suspected conditions (not mental disorders or infectious disease) (20 sources) Patient encounter status; Translations: [Encounter for screening for malignant neoplasm of respiratory organs] 12-12-2021 Episodic Other upper respiratory disease (20 sources) Hypophonia; Translations: [Other voice and resonance disorders] 11-09-2021 Episodic Other upper respiratory disease (2 sources) Other voice and resonance disorders; Translations: [Other voice and resonance disorders] Onset: 12-13-2022 Episodic Other upper respiratory infections (20 sources) Acute sinusitis; Translations: [Acute sinusitis, unspecified] Episodic Parkinson`s disease (20 sources) Parkinson's disease; Translations: [Parkinson's disease] Onset: 09-03-2022 Chronic Pathological fracture (1 source) Stress fracture of sacrum; Translations: [Pathological fracture, other site, initial encounter for fracture] 07-24-2023 Episodic Residual codes; unclassified (5 sources) Needs influenza immunization; Translations: [Need for prophylactic vaccination and inoculation against influenza (Renamed from Need for immunization against influenza)] 12-07-2019 Episodic Residual codes; unclassified (20 sources) Pain; Translations: [Pain, unspecified] 04-28-2021 Episodic Residual codes; unclassified (2 sources) Other specified health status; Translations: [Other specified health status] Onset: 12-13-2022 Episodic Screening and history of mental health and substance abuse codes (20 sources) Ex-smoker; Translations: [Tobacco use and exposure - finding] 12-07-2019 Episodic Skin and subcutaneous tissue infections (1 source) Cellulitis of lower leg; Translations: [Cellulitis of right lower limb] 12-25-2024 Episodic Skull and face fractures (1 source) Fractured nasal bones; Translations: [Fracture of nasal bones, initial encounter for closed fracture] 12-25-2024 Episodic Spondylosis; intervertebral disc disorders; other back problems (20 sources) Inflammation of sacroiliac joint; Translations: [Sacroiliitis, not elsewhere classified] Chronic Spondylosis; intervertebral disc disorders; other back problems (20 sources) Intervertebral disc disorders with radiculopathy, lumbar region; Translations: [Low back pain] Onset: 04-19-2017 11-09-2021 Episodic Sprains and strains (11 sources) Sprain of left wrist; Translations: [Unspecified sprain of left wrist, initial encounter] 05-23-2023 Episodic Superficial injury; contusion (20 sources) Abrasion, knee; Translations: [Abrasion, right knee, initial encounter] Episodic Unclassified (1 source) Spinal stenosis, lumbar region without neurogenic claudication; Translations: [SPINAL STENOSIS LUMBAR REGION NO NC] Onset: 04-19-2017 Unclassified (2 sources) New Patient; Translations: [New Patient] Onset: 12-13-2022 Unclassified (1 source) Parkinsonism, unspecified; Translations: [Parkinsonism, unspecified] Onset: 03-27-2024 Urinary tract infections (1 source) Urinary tract infectious disease; Translations: [Urinary tract infection, site not specified] 12-25-2024 Episodic Past or Other Problems Problem Classification Problem Date Documented Date Episodic/Chronic Joint disorders and dislocations; trauma-related (2 sources) Dislocation of shoulder joint; Translations: [Unspecified dislocation of right shoulder joint, initial encounter] Onset: 03-27-2024 01-30-2024 Episodic Other acquired deformities (2 sources) Spondylolisthesis, lumbar region; Translations: [SPONDYLOLISTHESIS LUMBAR REGION] Onset: 04-19-2017 Episodic Other connective tissue disease (20 sources) Recurrent falls ; Translations: [Repeated falls] Onset: 05-27-2023 05-27-2023 Episodic Other connective tissue disease (1 source) Repeated falls; Translations: [Falls frequently] Onset: 05-27-2023 Episodic Other nervous system disorders (20 sources) Impairment of balance; Translations: [Other abnormalities of gait and mobility] Onset: 05-27-2023 05-27-2023 Episodic Other nervous system disorders (20 sources) Abnormal gait; Translations: [Unspecified abnormalities of gait and mobility] Onset: 05-27-2023 05-27-2023 Episodic Other nervous system disorders (1 source) Other abnormalities of gait and mobility; Translations: [Imbalance] Onset: 05-27-2023 Episodic Other nervous system disorders (1 source) Unspecified abnormalities of gait and mobility; Translations: [Abnormality of gait] Onset: 05-27-2023 Episodic Other non-traumatic joint disorders (1 source) Pain in right hip; Translations: [Pain in right hip] Onset: 02-21-2024 Episodic Other non-traumatic joint disorders (1 source) Pain in right shoulder; Translations: [Pain in right shoulder] Onset: 02-21-2024 Episodic Unclassified (5 sources) BMI 30.0-30.9,adult Unclassified (5 sources) High cholesterol Unclassified (5 sources) Stage 3 Endrometrial cancer- 2015 12-07-2019 Unclassified (5 sources) Former smoker Unclassified (7 sources) Onset: 12-13-2022 12-13-2022 Unclassified (20 sources) Contusion of left shoulder, initial encounter 10-25-2021 Unclassified (20 sources) Contusion of left hip, initial encounter 10-25-2021 NEGATED: Highlighted row has been ruled out!Unclassified (5 sources) Problem Onset: 12-07-2019 12-07-2019 Results Test Name Value Interpretation Reference Range Facility [facility] 12-24-[address] [facility] Telephone (NRMDN) -- RAMOS PADRON ([id number]) 1945 F Date Time Provider Department 12/24/24 [facility] [place] During your visit today, we recorded the following information about you: Sonja Poole MA 12/24/2024 10:05 AM Signed Checked harrison patient not present at time of visit Allergies As of Date: 12/24/2024 (No Known Allergies) Date Reviewed: 06/18/2024 Reviewed by: Juliet Chanel MD - Fully Assessed Reason for Visit: Appointment [[id number]] Prescriptions as of 12/24/2024 - atorvastatin (LIPITOR) 20 mg tablet Take by mouth. - bisacodyl (DULCOLAX) 10 mg supp by RECTAL route. - Trospium (SANCTURA SR) 60 mg cp24 Take 1 capsule by mouth once daily. - mineral oil (FLEET MINERAL OIL) enema 133 mL by RECTAL route one time only. PRN - GUAIFENESIN ORAL Take 10 mL by mouth as needed. - magnesium hydroxide (MILK OF MAGNESIA) 400 mg/5 mL suspension Take 30 mL by mouth once daily as needed for constipation. - ondansetron (ZOFRAN) 4 mg tablet Take by mouth every 6 hours as needed for nausea/vomiting. - carbidopa-levodopa (SINEMET) 25-100 mg per tablet Take 2 tablets by mouth three times a day. - acetaminophen 650 mg CR tablet 1,300 mg. - Cholecalciferol, Vitamin D3, 50 mcg (2,000 unit) cap Take by mouth as directed. - ibuprofen (MOTRIN) 200 mg tablet Take 200 mg by mouth every 6 hours as needed. - rosuvastatin (CRESTOR) 10 mg tablet Take 1 tablet by mouth once daily. Problem List As Of Date 12/24/2024 Noted Resolved PSP (progressive supranuclear palsy) (HCC) [G23*05/27/2023 Imbalance [R26.89] 05/27/2023 Abnormality of gait [R26.9] 05/27/2023 Falls frequently [R29.6] 05/27/2023 Encounter Status:Closed by SONJA POOLE on 12/24/[address] [facility] Bilirubin Test strip Ql (U)O rdered By: John Webb on 12-17-2024 Bilirubin Ql (U) Negative Negative [facility] Brain/Head without Contrasto n 12-17-2024 Brain/Head without Contrast [facility] Imaging Services [address] [place], [place] [address] Brain/Head without Contrast MR#: [id number] Acct: [id number] Name: RAMOS PADRON Rep #: [id number] : 1945 F 79 From: Chris Moncada MD PCP: Dr. Dmitry Burk MD Status: REG ER Study: Brain/Head without Contrast Date of Exam: 12/02 08/26 Exam# [id number] Ordering Dr: John Webb DO PROCEDURE: BRAIN/HEAD WITHOUT CONTRAST 12/17/2024 REASON FOR EXAM: INJURY/PAIN Parkinson's disease. Fall. Laceration to the left eye. Neck and back pain. TECHNIQUE: Procedure Code: CTBR Modality: CT Procedure: BRAIN/HEAD WITHOUT CONTRAST Coronal and Sagittal reconstruction series were provided. One or more dose reduction techniques were used (e.g., Automated exposure control, adjustment of the mA and/or kV according to patient size, use of iterative reconstruction technique. RADIATION DOSE SUMMARY: CTDlvol: <50 mGy DLP: 779 mGycm COMPARISON: None FINDINGS: Brain: There is no evidence of hemorrhage, acute ischemia or mass. No extra-axial fluid collection, midline shift or mass effect. Low-density is seen in the periventricular white matter and deep white matter. CSF Spaces: Moderate generalized cerebral atrophy Sinuses/Mastoids: Clear Bones: Fractures of the nasal bones are shown bilaterally with slight angulation right laterally but no displacement. CT/Brain/Head without Contrast IMPRESSION: 1. Nasal bone fractures bilaterally. Slight angulation to the right but no displacement. 2. No acute intracranial process. Chronic microvascular ischemic changes and volume loss. Reading Location: [id number] CC: Dr. Dmitry Burk MD; Dr. John Webb DO [place]: Signed Normal [facility] Emergency Department Summary on 12-17-2024 Emergency Department Summary [facility] Medical Records Department [address] [place] [address] Emergency Department Summary 12/17/24 MR#: [id number] Acct: [id number] Name: RAMOS PADRON Rep #: [id number] : 1945 79 From: John Webb DO PCP: Dr. Dmitry Burk MD Status:DEP ER Location: ED HPI HPI - Fall History of Present Illness Chief Complaint: Fall Occured/Mechanism Occurred: Today Mechanism/Context: Yes same level fall Pain/Injury Pain Location: head, face and neck Worsened by: Nothing Relieved by: Nothing Associated Symptoms Associated Symptoms: Negative for Parasthesias, Weakness or Loss of consciousness Narrative Narrative: Patient presents after a fall that occurred this morning. Patient got up to walk when she fell. Patient has a history of Parkinson's and falls frequently. reports that the staff at the [facility]term found her on the floor. Patient denies any loss of consciousness. states patient's immunizations are up-to-date. Patient does complain of headache and neck pain. Patient is not on any anticoagulants. Patient denies any weakness. Tetanus Immunization: <5 years [facility] Medical History De Quervain's tenosynovitis, right Osteoarthritis of carpometacarpal joint of right thumb Right hand pain Parkinson disease Acute bronchitis, unspecified URI (upper respiratory infection) Hypertension Carpal tunnel syndrome High cholesterol History of tobacco use Encounter for screening for malignant neoplasm of lung in former smoker who quit in past 15 years with 30 pack year history or greater Endometrial cancer Back pain Difficulty balancing Abnormal bruising Migraines Fatigue Shoulder pain Uterine cancer Home Medications ???Medication ???Instructions ???Recorded ???Last Taken ???Type carbidopa 25 mg-levodopa 100 mg 2 tab PO TID parkinsons 11/22/21 U nknown History tablet acetaminophen 500 mg tablet 1,000 mg (2 x 500 mg) PO Q6H PRN 0 11/29/21 Unknown Rx PRN Pain Score 1-10 #0 tabs cholecalciferol (vitamin D3) 50 50 mcg PO DAILY 03/16/22 Unknown H istory mcg (2,000 unit) capsule (D3-2000) atorvastatin 20 mg tablet 20 mg PO QHS HYPERLIPIDEMIA Unknown History bisacodyl 10 mg rectal suppository 10 mg OK DAILY PRN constipation 12/17/24 Unknown History cephalexin 500 mg capsule 500 mg PO Q6 #40 CAPSULES 12/17/24 Unknown Rx dextromethorphan-guaifenes in 10 10 ml PO Q4H PRN cough 12/17/24 Un known History mg-100 mg/5 mL oral syrup (Chest Congestion Relief DM) loperamide 2 mg tablet (Diamode) 2 mg PO Q6H PRN loose stool Unknown History magnesium hydroxide 400 mg/5 mL 30 ml PO DAILY PRN stomach upset 1 Unknown History oral suspension (Milk of Magnesia) mineral oil 118 ml OK DAILY PRN constipation 1 Unknown History ondansetron HCl 4 mg tablet 4 mg PO Q8H PRN nausea and vomitin g 12/17/24 Unknown History rivastigmine tartrate 3 mg capsule 3 mg PO BID CONFUSION 12/17/24 U nknown History sodium chloride 0.65 % nasal spray 2 spray intranasal PRN nasal Unknown History aerosol (Deep Sea Nasal) congestion Allergy/AdvReac Type Severity Reaction Status Date / Time No Known Allergies Allergy Verified 03/09/24 09:04 Family History Mother CVA (cerebral vascular accident) Hypertension Arthritis Heart disease Father Cancer Skin cancer Sister CVA (cerebral vascular accident) Hypertension Brother Hypertension CVA (cerebral vascular accident) Surgical History History of left shoulder replacement History of hip surgery History of left hip replacement H/O: hysterectomy Social History household members: spouse housing: house Smoking Status: Former smoker quit date: 01/02/15 pack-years: 40 Tobacco: How many years used: 40 Electronic Cigarette Use: not used second hand exposure: Yes quit status: has quit before alcohol intake: never what type of physical activity do you participate in: walking and other details: golf do you feel safe at home: Yes ROS ROS ED Constitutional Constitutional ED: Denies chills or fever(s) Respiratory/Chest Respiratory/Chest: Denies cough or dyspnea Gastrointestinal Gastrointestinal: Denies nausea or vomiting Musculoskeletal Musculoskeletal: Reports back pain and neck pain EXAM Physical Exam Const Vital Signs: 12/17/24 09:29 12/17/24 09:36 12/17/24 11:26 Temperature 98.3 F Temperature Source Oral Pulse Rate 70 71 Respiratory Rate 16 Respiratory Effort Normal Respiratory Depth Normal Respiratory Pattern Normal Bloo (more content not included)... Normal [facility] Ketones Test strip Ql (U)Ord ered By: John Webb on 12-17-2024 Ketones Ql (U) Negative Negative [facility] Microscopic analysis of urin e for red blood cells (RBC)Ordered By: John Webb on 12-17-2024 Microscopic analysis of urine for red blood cells (RBC) 0-5 SEEN /hpf 0-5 [facility] Mucus LM Ql (Urine sed)Order ed By: John Webb on 12-17-2024 Mucus Ql (Urine sed) 0 SEEN /hpf [facility] Nitrite Test strip Ql (U)Ord ered By: John Webb on 12-17-2024 Nitrite Ql (U) Positive High Negative [facility] Protein Test strip Ql (U)Ord ered By: John Webb on 12-17-2024 Protein Ql (U) Negative Negative [facility] Spine Cervical without Contr ason 12-17-2024 Spine Cervical without Contras [facility] Imaging Services [address] [place] [address] Spine Cervical without Contras MR#: [id number] Acct: [id number] Name: RAMOS PADRON Rep #: [id number] : 1945 F 79 From: Gaudencio Joe MD PCP: Dr. Dmitry Burk MD Status: REG ER Study: Spine Cervical without Contras Date of Exam: Exam# [id number] Ordering Dr: John Webb DO PROCEDURE: SPINE CERVICAL WITHOUT CONTRAS 12/17/2024 REASON FOR EXAM: INJURY/PAIN TECHNIQUE: Procedure Code: CTSPC Modality: CT Procedure: SPINE CERVICAL WITHOUT CONTRAS Coronal and Sagittal reconstruction series were provided. One or more dose reduction techniques were used (e.g., Automated exposure control, adjustment of the mA and/or kV according to patient size, use of iterative reconstruction technique. RADIATION DOSE SUMMARY: DLP: 1145 mGycm COMPARISON: None FINDINGS: There is loss of the lordosis. Visualized skull base and craniocervical junction demonstrate no evidence of fracture or dislocation. There is no evidence of cervical spine fracture. Alignment is normal. No soft tissue abnormality is seen. Disc spaces are preserved. Facets are intact. There is a 0.4 cm blastic focus in the right lateral mass of C1. There is a 0.6 cm blastic focus in the right lateral mass of C1. There is a 0.8 by 0.8 cm blastic lesion in the anterior C3 vertebral body. Visualized portions of the lung apices demonstrate no evidence of pneumothorax. Vascular calcifications are noted. C2-C3: There is no significant disc protrusion. There is no lateral recess or foraminal stenosis. There is no central canal stenosis. C3-C4: There is no significant disc protrusion. There is no lateral recess or foraminal stenosis. There is no central canal stenosis. C4-C5: There is no significant disc protrusion. There is no lateral recess or foraminal stenosis. There is no central canal stenosis. C5-C6: There is no significant disc protrusion. There is no lateral recess or foraminal stenosis. There is no central canal stenosis. C6-C7: There is no significant disc protrusion. There is no lateral recess or foraminal stenosis. There is no central canal stenosis. C7-T1: There is no significant disc protrusion. There is no lateral recess or foraminal stenosis. There is no central canal stenosis. CT/Spine Cervical without Contras IMPRESSION: There is loss of the lordosis. There is a 0.4 cm blastic focus in the right lateral mass of C1. There is a 0.6 cm blastic focus in the right lateral mass of C1. There is a 0.8 by 0.8 cm blastic lesion in the anterior C3 vertebral body. Consider whole-body bone scan for further characterization. There is no visible acute traumatic injury. Reading Location: PING CC: Dr. Dmitry Burk MD; Dr. John Webb DO [place]: Signed Normal [facility] Squamous epithelial cells de tection in urine sediment by light microscopyOrdered By: John Webb on 12-17-2024 Epithelial cells.squamous LM Ql (Urine sed) 0-5 SEEN /hpf 5-10 [facility] Urinalysis, Completeon 12-17 RBC 0-5 SEEN Normal 0-5 [facility] Comment on above: Order Comment: CLEAN CATCH Performed By: #### L [id number] ####[facility] [id number] [facility] [address] BACTERIA 2+ /hpf Normal None Seen [facility] Comment on above: Order Comment: CLEAN CATCH Performed By: #### L [id number] ####[facility] [id number] [place], [address] EPI,SQUAMOUS 0-5 SEEN Normal 5-10 [facility] Comment on above: Order Comment: CLEAN CATCH Performed By: #### L [id number] ####[facility] [id number] [facility] [address] WBC 10-25 SEEN Normal 0-5 [facility] Comment on above: Order Comment: CLEAN CATCH Performed By: #### L [id number] ####[facility] [id number] [place], [address] Mucus Ql (Urine sed) 0 SEEN Normal [facility] Comment on above: Order Comment: CLEAN CATCH Performed By: #### L [id number] ####[facility] [id number] [place], [address] Urine clarityOrdered By: Carmina Webb on 12-17-2024 Clarity (U) Sl. Cloudy Clear [facility] Urine color determinationOrd ered By: John Webb on 12-17-2024 Color (U) Yellow Yellow [facility] Urine glucose detectionOrder ed By: John Webb on 12-17-2024 Glucose Ql (U) Normal mg/dl Normal [facility] Urine leukocyte esterase det ection by dipstickOrdered By: John Webb on 12-17-2024 Leukocyte esterase Test strip Ql (U) 500 /ul High Negative [facility] Urine pHOrdered By: John sullivan on 12-17-2024 pH (U) 7.0 [pH] 5.0 - 8.0 [facility] Urine sediment bacteria coun t by microscopy (number/high power field)Ordered By: John Webb on 12-17-2024 Bacteria LM.HPF (Urine sed) [#/Area] 2 /[HPF] None Seen [facility] Urine specific gravity measu rementOrdered By: John Webb on 12-17-2024 Specific gravity (U) [Rel density] 1.010 1.002-1.03 0 [facility] Urine urobilinogen measureme ntOrdered By: John Webb on 12-17-2024 Urobilinogen Ql (U) Normal mg/dl Normal [facility] White blood cell countOrdere d By: John Webb on 12-17-2024 White blood cell count 10-25 SEEN /hpf 0-5 [facility] Anion gap in Serum or Plasma Ordered By: Demetrio Hemphill on 09-08-2024 Anion gap [Moles/Vol] 9 mmol/L - [facility] BUN/creatinine ratioOrdered By: Demetrio Hemphill on 09-08-2024 Urea nitrogen/Creatinine [Mass ratio] 12.3 mg/mg 12-21 [facility] Basic Metabolic Profile (BMP )on 09-08-2024 BUN/CRE 12.3 RATIO Normal 12-21 [facility] Comment on above: Order Comment: 119.2 Performed By: #### L 100.0500, L500.2500, L506.1001 ####[facility] [address] [place], [address] Calcium [Mass/Vol] 8.8 mg/dL Normal 7.6-11.0 [facility] Comment on above: Order Comment: 119.2 Performed By: #### L 100.0500, L500.2500, L506.1001 ####[facility] [address] [place], [address] Chloride [Moles/Vol] 106 mmol/L Normal 98-108 [facility] Comment on above: Order Comment: 119.2 Performed By: #### L 100.0500, L500.2500, L506.1001 ####[facility] [address] [place], [address] CO2 [Moles/Vol] 23.5 mmol/L Normal 21.0-32.0 [facility] Comment on above: Order Comment: 119.2 Performed By: #### L 100.0500, L500.2500, L506.1001 ####[facility] [address] [place], [address] Creatinine [Mass/Vol] 0.93 mg/dL Normal 0.70-1.20 [facility] Comment on above: Order Comment: 119.2 Performed By: #### L 100.0500, L500.2500, L506.1001 ####[facility] [address] [place], [address] GAP 9 Normal 5-15 [facility] Comment on above: Order Comment: 119.2 Performed By: #### L 100.0500, L500.2500, L506.1001 ####[facility] [address] [place], [address] GFR/1.73 sq M.predicted among non-blacks MDRD (S/P/Bld) [Vol rate/Area] 62 mL/min/{1.73_m2} Normal >60 [facility] Comment on above: Order Comment: 119.2 Result Comment: mL/m in/1.73m2 CKD-EPI Creatinine Equation (2020) Performed By: #### L 100.0500, L500.2500, L506.1001 ####[facility] [address] [place], [address] Glucose [Mass/Vol] 82 mg/dL Normal 70-99 [facility] Comment on above: Order Comment: 119.2 Performed By: #### L 100.0500, L500.2500, L506.1001 ####[facility] [address] [place], [address] Potassium [Moles/Vol] 3.8 mmol/L Normal 3.3-5.1 [facility] Comment on above: Order Comment: 119.2 Performed By: #### L 100.0500, L500.2500, L506.1001 ####[facility] [address] [place], [address] Sodium [Moles/Vol] 139 mmol/L Normal 133-145 [facility] Comment on above: Order Comment: 119.2 Performed By: #### L 100.0500, L500.2500, L506.1001 ####[facility] [address] [place], [address] Urea nitrogen [Mass/Vol] 12 mg/dL Normal 4-19 [facility] Comment on above: Order Comment: 119.2 Performed By: #### L 100.0500, L500.2500, L506.1001 ####[facility] [address] [place], [address] CBC-Complete Blood Cnt No Di ffon 09-08-2024 Erythrocyte distribution width (RBC) [Ratio] 14.3 % Normal 11.6-14.6 [facility] Comment on above: Order Comment: 119.2 Performed By: #### L 100.0500, L500.2500, L506.1001 ####[facility] [address] [place], [address] Hematocrit (Bld) [Volume fraction] 38.9 % Normal 37-47 [facility] Comment on above: Order Comment: 119.2 Performed By: #### L 100.0500, L500.2500, L506.1001 ####[facility] [address] [place], [address] Hemoglobin (Bld) [Mass/Vol] 12.8 g/dL Normal 12.0-15.0 [facility] Comment on above: Order Comment: 119.2 Performed By: #### L 100.0500, L500.2500, L506.1001 ####[facility] [address] [place], [address] MCH (RBC) [Entitic mass] 30.5 pg Normal 27.0-32.0 [facility] Comment on above: Order Comment: 119.2 Performed By: #### L 100.0500, L500.2500, L506.1001 ####[facility] [address] [place], [address] MCHC (RBC) [Mass/Vol] 32.9 g/dL Normal 32-36 [facility] Comment on above: Order Comment: 119.2 Performed By: #### L 100.0500, L500.2500, L506.1001 ####[facility] [address] [place], [address] MCV (RBC) [Entitic vol] 92.8 fL Normal 81-99 [facility] Comment on above: Order Comment: 119.2 Performed By: #### L 100.0500, L500.2500, L506.1001 ####[facility] [address] [place], [address] Platelet mean volume (Bld) [Entitic vol] 9.3 fL Normal 6.2-12.0 [facility] Comment on above: Order Comment: 119.2 Performed By: #### L 100.0500, L500.2500, L506.1001 ####[facility] [address] [place], [address] Platelets (Bld) [#/Vol] 289 10*3/uL Normal 150-450 [facility] Comment on above: Order Comment: 119.2 Performed By: #### L 100.0500, L500.2500, L506.1001 ####[facility] [address] [place], [address] RBC (Bld) [#/Vol] 4.19 10*6/uL Low 4.2-5.4 [facility] Comment on above: Order Comment: 119.2 Performed By: #### L 100.0500, L500.2500, L506.1001 ####[facility] [address] [place], [address] RDW SD 48.6 fl High 35.1-43.9 [facility] Comment on above: Order Comment: 119.2 Performed By: #### L 100.0500, L500.2500, L506.1001 ####[facility] [address] [place], [address] WBC (Bld) [#/Vol] 6.4 10*3/uL Normal 4.4-11.0 [facility] Comment on above: Order Comment: 119.2 Performed By: #### L 100.0500, L500.2500, L506.1001 ####[facility] [address] [place], [address] Carbon dioxide, total [Moles /volume] in Central venous bloodOrdered By: Demetrio Hemphill on 09-08-2024 CO2 [Moles/Vol] 23.5 mmol/L 21.0-32.0 [facility] Chloride assayOrdered By: Jaimee Hemphill on 09-08-2024 Chloride [Moles/Vol] 106 mmol/L 98-108 [facility] Erythrocyte distribution wid th ratioOrdered By: Demetrio Hemphill on 09-08-2024 Erythrocyte distribution width (RBC) [Ratio] 14.3 % 11.6-14.6 [facility] Erythrocyte distribution wid th standard deviationOrdered By: Demetrio Hemphill on 09-08-2024 Erythrocyte distribution width (RBC) [Ratio] 48.6 fl High 35.1-43.9 [facility] Glomerular filtration rate ( GFR) estimation/1.73 sq m using serum, plasma, or whole bOrdered By: Demetrio Hemphill on 09-08-2024 GFR/1.73 sq M.predicted among non-blacks MDRD (S/P/Bld) [Vol rate/Area] 62 mL/min/{1.73_m2} >60 [facility] Comment on above: mL/min/1.73m2 CKD-EP I Creatinine Equation (2020) Hematocrit Auto (Bld) [Volum e fraction]Ordered By: Demetrio Hemphill on 09-08-2024 Hematocrit (Bld) [Volume fraction] 38.9 % 37-47 [facility] Hemoglobin measurementOrdere d By: Demetrio Hemphill on 09-08-2024 Hemoglobin (Bld) [Mass/Vol] 12.8 g/dL 12.0-15.0 [facility] MCV (mean corpuscular volume ) determinationOrdered By: Demetrio Hemphill on 09-08-2024 MCV (RBC) [Entitic vol] 92.8 fL 81-99 [facility] Mean corpuscular hemoglobin (MCH) determinationOrdered By: Demetrio Hemphill on 09-08-2024 MCH (RBC) [Entitic mass] 30.5 pg 27.0-32.0 [facility] Mean corpuscular hemoglobin concentration (MCHC) determinationOrdered By: Demetrio Hemphill on 09-08-2024 MCHC (RBC) [Mass/Vol] 32.9 g/dL 32-36 [facility] Mean platelet volume determi nationOrdered By: Demetrio Hemphill on 09-08-2024 Platelet mean volume (Bld) [Entitic vol] 9.3 fL 6.2-12.0 [facility] Platelet countOrdered By: Jaimee Hemphill on 09-08-2024 Platelets (Bld) [#/Vol] 289 10*3/uL 150-450 [facility] Potassium measurement (mass/ volume)Ordered By: Demetrio Hemphill on 09-08-2024 Potassium (Unsp spec) [Mass/Vol] 3.8 mmol/L 3.3-5.1 [facility] RBC Auto (Bld) [#/Vol]Ordere d By: Demetrio Hemphill on 09-08-2024 RBC (Bld) [#/Vol] 4.19 10*6/uL Low 4.2-5.4 [facility] Serum creatinine measurement (mass/volume)Ordered By: Demetrio Hemphill on 09-08-2024 Creatinine [Mass/Vol] 0.93 mg/dL 0.70-1.20 [facility] Serum glucose measurement (m ass/volume)Ordered By: Demetrio Hemphill on 09-08-2024 Glucose [Mass/Vol] 82 mg/dL 70-99 [facility] Serum or plasma calcium anat urement (mass/volume)Ordered By: Demetrio Hemphill on 09-08-2024 Calcium [Mass/Vol] 8.8 mg/dL 7.6-11.0 [facility] Serum or plasma urea nitroge n measurement (mass/volume)Ordered By: Demetrio Hemphill on 09-08-2024 Urea nitrogen [Mass/Vol] 12 mg/dL 4-19 [facility] Sodium levelOrdered By: Demetrio Hemphill on 09-08-2024 Sodium [Moles/Vol] 139 mmol/L 133-145 [facility] Vitamin D,25 Hydroxyon 09-08 Vitamin D 25-OH 44.3 ng/mL Normal 30-100 [facility] Comment on above: Order Comment: 119.2 Result Comment: Deborah min D Status Deficiency: <20 ng/mL (50nmol/L) Insufficiency: 20-30 ng/mL (50-75 nmol/L) Sufficiency: 30-100 ng/mL (75-250 nmol/L) Toxicity: >100 ng/mL (>250 nmol/L) Performed By: #### L 100.0500, L500.2500, L506.1001 ####[facility] [address] [place], [address] White blood cell (WBC) count Ordered By: Demetrio Hemphill on 09-08-2024 WBC (Bld) [#/Vol] 6.4 10*3/uL 4[facility]4-11.0 [facility] (NRMDN[facility] -- RAMOS PADRON ([id number]) 1945 F Date Time Provider Department 06/18/24 10:00 AM JULIET CHANEL NRLAKIA During your visit today, we recorded the following information about you: Pulse Blood pressure Weight 88/minute 100/67 59 kg Juliet Chanel MD 06/18/2024 11:01 AM Addendum It was a pleasure to see you today. We addressed the following diagnoses: Psp (progressive supranuclear palsy) (hcc) My recommendations are as follows: Continue with your one-on-one physical therapy sessions Continue taking your current medications exactly as prescribed; no changes were made today. will schedule an appointment with your eye doctor for diplopia Plan to return for a follow-up visit in approximately six months. Movement Disorders Medication Schedule: Medications Sinemet 25/100 2 2 2 Return at or around: 12/18/24 If there are any concerns before your next visit, please call or you can send a message through [employer]. You can also now schedule and select appointments through [employer]. MD Yanique Phillips Kristin, MD 06/18/2024 12:37 PM Signed [facility] - FOLLOW UP EVALUATION Primary Movement Disorders Neurologist: Juliet Chanel MD Primary Movement Disorders NEISHA: Not yet assigned Recording using [employer] software for draft documentation of the visit was discussed with the patient/authorized inbound call center representative; all questions welcomed and answered. Patient/authorized inbound call center representative agreed to proceed MD Jose Miguel Oakes Maize RYAN [address] [facility] [address] Dear Dmitry Burk MD: I had the pleasure of seeing Ms. Padron for follow-up today. As you know she is a 79 year old right-handed female with a history of PSP since 2019. She is seen with her . Subjective Previous Plan- 01/20/2024 Visit: Try increasing Sinemet up to 2 tabs 3 times a day. Continue exercise - Interval History: Ramos is a 79-year-old female with a history of progressive supranuclear palsy (PSP) presenting for follow-up. She is accompanied by her , who provides additional history. Ramos has been experiencing frequent falls, with a recent significant fall occurring on February 05, resulting in a shoulder separation. She was initially treated in the ER and subsequently admitted for rehabilitation. That initial ECF was not working out she she moved to [facility] in [place] and will remain there indefinitely. Her reports that she cannot walk without assistance and often attempts to stand or walk independently, leading to falls. He notes that she is teachable but stubborn, often realizing her limitations only after falling. Despite using pads around her chair and bed, he is unsure if she remembers to use the emergency button at night. She is currently in PT 3 days a week. Her visits her daily and reports that the staff administers her medications, including carbidopa-levodopa, three times a day on time. He observes that she has good days and bad days, which he can usually discern by looking at her. He does not report any side effects from the medication. She experiences difficulty swallowing both liquids and solids, often choking due to eating too quickly. She is on a regular diet with thin liquids and has been evaluated by speech therapy. She also reports double vision and uses prism lenses; her plans to schedule an eye appointment for her. She does not endorse hallucinations, depression, or anxiety. Her describes her as not being a social butterfly and notes that she does not usually participate in activities at the facility, although she does enjoy bingo. He takes her out weekly for meals at the facility's bistro or brings her food from outside. Movement Disorders Medications Schedule - as of the start of the visit: Medications Sinemet 25/100 2 2 2 Prior Anti-Parkinson Therapies Carbidopa/Levodopa Questionnaires: In addition, the following areas that may be affected by abnormal involuntary movements were evaluated: Daily activities Difficulties with eating: Yes (mild) Difficulties in dressing: Yes (slight) Difficulties with hygiene activities: Yes (slight) Difficulties with handwriting: Yes (mild) Difficulties with doing hobbies and other activities: Yes (slight) Difficulties turning in bed: Yes (slight) Difficulties getting out of bed, car or chair: Yes (slight) Tremors/Gait/Balance Shaking or tremors: Yes (slight) Walking and balance problems: Yes (moderate) Number of falls in the Last Month: 1 Gait freezing: Yes (slight) Autonomic/Pain Lightheadeness on standing: Yes (mild) Urinary problems: 0 (none) Constipation problems: Yes (mild) Pain and other sensations: Yes (slight) Speech/Swallowing Speech problems: Yes (mild) Drooling: Yes (slight) Chewing and swallowing (more content not included)... Normal [facility] 36on 04-28-2024 36 Called back to see i f pt is doing better and would like to reschedule her canceled appointment. Pt did not pickle pumper so left information on voicemail and asked pt to call us back. Normal [facility] 36 ----- Message from Leanne Rueda sent at 03/24/2024 10:54 AM EST ----- Regarding: Reschedule Appointment , Rafael, called in stating pt has appointment. No visible authorization to speak with Rafael. Did speak with Ramos and verified that I can speak with her Rafael. Spoke with Rafael and he stated that pt having urinary issues and need to take care of that first; he requested call back in 30 days. Normal [facility] 36on 03-23-2024 36 Lvm x3 to r/s with provider due to manager shipping not taking supplement [facility] Orthopedic Visit Reporton Orthopedic Visit Report [facility] [address] [place] [address] OFFICE VISIT Date of Service: 03/09/24 MR#: [id number] Acct: [id number] Name: VITORAMOS HUNT Rep #: [id number] : 1945 Provider: Dr. Micheal kumar MD Age/Sex: 78/F Location: [facility] Status: Signed Intake Vital Signs 01/24/24 15:28 Height 5 ft 1 in Intake Visit Reasons: RIGHT SHOULDER Is patient in pain?: Yes Pain scale (1-10): 7 Allergies No Known Allergies Allergy (Verified 03/09/24 09:04) Medications ???Medication ???Instructions ???Recorded ???Confirmed ???Type carbidopa 25 mg-levodopa 100 mg 1.5 tab PO TID parkinsons 11/22/21 03/09/24 History tablet acetaminophen 500 mg tablet 1,000 mg (2 x 500 mg) PO Q6H PRN 11/29/21 03/09/24 Rx PRN Pain Score 1-10 #0 tabs cholecalciferol (vitamin D3) 50 50 mcg PO DAILY 03/16/22 03/09/24 History mcg (2,000 unit) capsule (D3-2000) atorvastatin 20 mg tablet 20 mg PO QDAY 01/27/24 03/09/24 History Have you fallen in the past year?: Yes PFSH Medical History De Quervain's tenosynovitis, right Osteoarthritis of carpometacarpal joint of right thumb Right hand pain Parkinson disease Acute bronchitis, unspecified URI (upper respiratory infection) Hypertension Carpal tunnel syndrome High cholesterol History of tobacco use Encounter for screening for malignant neoplasm of lung in former smoker who quit in past 15 years with 30 pack year history or greater Endometrial cancer Back pain Difficulty balancing Abnormal bruising Migraines Fatigue Shoulder pain Uterine cancer Surgical History History of left shoulder replacement History of hip surgery History of left hip replacement H/O: hysterectomy Family History Mother CVA (cerebral vascular accident) Hypertension Arthritis Heart disease Father Cancer Skin cancer Sister CVA (cerebral vascular accident) Hypertension Brother Hypertension CVA (cerebral vascular accident) Social History household members: spouse housing: house Smoking Status: Former smoker quit date: 01/02/15 pack-years: 40 Tobacco: How many years used: 40 Electronic Cigarette Use: not used second hand exposure: Yes quit status: has quit before alcohol intake: never what type of physical activity do you participate in: walking and other details: golf do you feel safe at home: Yes HPI RIGHT SHOULDER Details: This documentation accurately reflects the service provided and the decisions made by me, Dr. Micheal Dawson MD 03/09/24 8177. Part of today???s visit was documented by [ ], acting as scribe. RAMOS PADRON is a 78 year old F here today for 6 weeks FU R shoulder dislocation and closed reduction. Patient here with her today. The patient is at an assisted living facility called [facility]. Unsure if she has been doing physical therapy but the patient states that she has been... is really unsure Coding Level of Care Code Off vis,est,level 3 Diagnoses Dislocation of shoulder, right, closed S43.004A Assessment and Plan Assessment and Plan (1) Dislocation of shoulder, right, closed: Status: Inactive Plan: RAMOS PADRON is a 78 year old F here today for 6 weeks FU R shoulder dislocation and closed reduction. Patient doing well progressing as expected okay to start strengthening I will have our office staff send a letter to the assisted living facility to start some light strengthening with bands or light weights and follow-up in 2 months time the patient and understood no further questions or concerns. Clinical Quality Measures Falls Risk Screening/Assistive Devices Have you fallen in the past year?: Yes Ortho Exam General General: Yes no acute distress Neurologic: Yes alert and Yes oriented x3 Psychologic: Yes reasonable and appropriate Right Shoulder Skin/Wound: Yes CDI, No ecchymosis, No erythema and No swelling SHOULDER: nvi to ax, mru and ain/pin. strong radial pulse. active fe 160, er 40. slow, a bit weak, no drop arm sign 03/09/24 0989 Date Micheal Dawson MD [facility] Signature: Date (if applicable) CC: Normal [facility] Basic Metabolic Profile (BMP )on 02-07-2024 BUN/CRE 21.9 RATIO High 10-20 [facility] Comment on above: Order Comment: 207.1 Performed By: #### L 100.0500, L501.5200, L500.2500 ####[facility] [address] [place], [address] CA,Total 8.8 mg/dL Normal 8.5-10.1 [facility] Comment on above: Order Comment: 207.1 Performed By: #### L 100.0500, L501.5200, L500.2500 ####[facility] [address] [place], [address] Chloride [Moles/Vol] 110 mmol/L High 98-107 [facility] Comment on above: Order Comment: 207.1 Performed By: #### L 100.0500, L501.5200, L500.2500 ####[facility] [address] [place], [address] CO2 [Moles/Vol] 26.0 mmol/L Normal 21.0-32.0 [facility] Comment on above: Order Comment: 207.1 Performed By: #### L 100.0500, L501.5200, L500.2500 ####[facility] [address] [place], [address] Creatinine [Mass/Vol] 0.87 mg/dL Normal 0.55-1.02 [facility] Comment on above: Order Comment: 207.1 Result Comment: The validity of the calculated GFR GFRAA in patients over 70 years has not been determined. Clinical correlation is essential. Performed By: #### L 100.0500, L501.5200, L500.2500 ####[facility] [address] [place], [address] EST GFR - AA 81 mL/min Normal >60 [facility] Comment on above: Order Comment: 207.1 Result Comment: Afri can [place] GFR Calc Performed By: #### L 100.0500, L501.5200, L500.2500 ####[facility] [address] [place], [address] GAP 6 Normal 5-15 [facility] Comment on above: Order Comment: 207.1 Performed By: #### L 100.0500, L501.5200, L500.2500 ####[facility] [address] [place], [address] GFR/1.73 sq M.predicted among non-blacks MDRD (S/P/Bld) [Vol rate/Area] 67 mL/min/{1.73_m2} Normal >60 [facility] Comment on above: Order Comment: 207.1 Result Comment: Non- GFR Calc Performed By: #### L 100.0500, L501.5200, L500.2500 ####[facility] [address] [place], [address] Glucose [Mass/Vol] 104 mg/dL Normal 74-106 [facility] Comment on above: Order Comment: 207.1 Result Comment: Fast ing Glucose result from 100 to 125 mg/dL suggests IMPAIRED HOMEOSTASIS per A.D.A. criteria. Performed By: #### L 100.0500, L501.5200, L500.2500 ####[facility] [address] [place], [address] Potassium [Moles/Vol] 3.9 mmol/L Normal 3.5-5.1 [facility] Comment on above: Order Comment: 207.1 Performed By: #### L 100.0500, L501.5200, L500.2500 ####[facility] [address] [place], [address] Sodium [Moles/Vol] 142 mmol/L Normal 136-145 [facility] Comment on above: Order Comment: 207.1 Performed By: #### L 100.0500, L501.5200, L500.2500 ####[facility] [address] [place], [address] Urea nitrogen [Mass/Vol] 19 mg/dL High 7-18 [facility] Comment on above: Order Comment: 207.1 Performed By: #### L 100.0500, L501.5200, L500.2500 ####[facility] [address] [place], [address] CBC-Complete Blood Cnt No Di ffon 02-07-2024 Erythrocyte distribution width (RBC) [Ratio] 13.4 % Normal 11.6-14.6 [facility] Comment on above: Order Comment: 207.1 Performed By: #### L 100.0500, L501.5200, L500.2500 ####[facility] [address] [place], [address] Hematocrit (Bld) [Volume fraction] 44.3 % Normal 37-47 [facility] Comment on above: Order Comment: 207.1 Performed By: #### L 100.0500, L501.5200, L500.2500 ####[facility] [address] [place], [address] Hemoglobin (Bld) [Mass/Vol] 14.3 g/dL Normal 12.0-15.0 [facility] Comment on above: Order Comment: 207.1 Performed By: #### L 100.0500, L501.5200, L500.2500 ####[facility] [address] [place], [address] MCH (RBC) [Entitic mass] 30.4 pg Normal 27.0-32.0 [facility] [place] Comment on above: Order Comment: 207.1 Performed By: #### L 100.0500, L501.5200, L500.2500 ####[facility] [place] [address] [place], [address] MCHC (RBC) [Mass/Vol] 32.3 g/dL Normal 32-36 [facility] Comment on above: Order Comment: 207.1 Performed By: #### L 100.0500, L501.5200, L500.2500 ####[facility] [place] [address] [place], [address] MCV (RBC) [Entitic vol] 94.3 fL Normal 81-99 [facility] [place] Comment on above: Order Comment: 207.1 Performed By: #### L 100.0500, L501.5200, L500.2500 ####[facility] [place] [address] [place], [address] Platelet mean volume (Bld) [Entitic vol] 9.5 fL Normal 6.2-12.0 [facility] [place] Comment on above: Order Comment: 207.1 Performed By: #### L 100.0500, L501.5200, L500.2500 ####[facility] [place] [address] [place], [address] Platelets (Bld) [#/Vol] 409 10*3/uL Normal 150-450 [facility] [place] Comment on above: Order Comment: 207.1 Performed By: #### L 100.0500, L501.5200, L500.2500 ####[facility] [place] [address] [place], [address] RBC (Bld) [#/Vol] 4.70 10*6/uL Normal 4.2-5.4 [facility] Comment on above: Order Comment: 207.1 Performed By: #### L 100.0500, L501.5200, L500.2500 ####[facility] [place] [address] [place], [address] RDW SD 46.8 fl High 35.1-43.9 [facility] [place] Comment on above: Order Comment: 207.1 Performed By: #### L 100.0500, L501.5200, L500.2500 ####[facility] [place] [address] [place], [address] WBC (Bld) [#/Vol] 8.2 10*3/uL Normal 4.4-11.0 [facility] Comment on above: Order Comment: 207.1 Performed By: #### L 100.0500, L501.5200, L500.2500 ####[facility] [place] [address] [place], [address] Magnesiumon 02-07-2024 Magnesium [Mass/Vol] 2.3 mg/dL Normal 1.6-2.6 [facility] Comment on above: Order Comment: 207.1 Performed By: #### L 100.0500, L501.5200, L500.2500 ####[facility] [place] [address] [place], [address] Basic Metabolic Profile (BMP )on 01-31-2024 BUN/CRE 17.2 RATIO Normal 10-20 [facility] [place] Comment on above: Order Comment: 207-1 Performed By: #### L 500.2500, L501.5200, L100.0500 ####[facility] [place] [address] [place], [address] CA,Total 8.8 mg/dL Normal 8.5-10.1 [facility] [place] Comment on above: Order Comment: 207-1 Performed By: #### L 500.2500, L501.5200, L100.0500 ####[facility] [place] [address] [place], [address] Chloride [Moles/Vol] 109 mmol/L High 98-107 [facility] Comment on above: Order Comment: 207-1 Performed By: #### L 500.2500, L501.5200, L100.0500 ####[facility] [address] [place], [address] CO2 [Moles/Vol] 25.0 mmol/L Normal 21.0-32.0 [facility] Comment on above: Order Comment: 207-1 Performed By: #### L 500.2500, L501.5200, L100.0500 ####[facility] [place] [address] [place], [address] Creatinine [Mass/Vol] 0.70 mg/dL Normal 0.55-1.02 [facility] Comment on above: Order Comment: Result Comment: The validity of the calculated GFR GFRAA in patients over 70 years has not been determined. Clinical correlation is essential. Performed By: #### L 500.2500, L501.5200, L100.0500 ####[facility] [place] [address] [place], [address] EST GFR - AA 104 mL/min Normal >60 [facility] Comment on above: Order Comment: Result Comment: Afri can [place] GFR Calc Performed By: #### L 500.2500, L501.5200, L100.0500 ####[facility] [place] [address] [place], [address] GAP 7 Normal 5-15 [facility] Comment on above: Order Comment: Performed By: #### L 500.2500, L501.5200, L100.0500 ####[facility] [place] [address] [place], [address] GFR/1.73 sq M.predicted among non-blacks MDRD (S/P/Bld) [Vol rate/Area] 86 mL/min/{1.73_m2} Normal >60 [facility] Comment on above: Order Comment: Result Comment: Non- GFR Calc Performed By: #### L 500.2500, L501.5200, L100.0500 ####[facility] [place] [address] [place], [address] Glucose [Mass/Vol] 103 mg/dL Normal 74-106 [facility] Comment on above: Order Comment: Result Comment: Fast ing Glucose result from 100 to 125 mg/dL suggests IMPAIRED HOMEOSTASIS per A.D.A. criteria. Performed By: #### L 500.2500, L501.5200, L100.0500 ####[facility] [place] [address] [place], [address] Potassium [Moles/Vol] 3.3 mmol/L Low 3.5-5.1 [facility] Comment on above: Order Comment: - Performed By: #### L 500.2500, L501.5200, L100.0500 ####[facility] [place] [address] [place], [address] Sodium [Moles/Vol] 141 mmol/L Normal 136-145 [facility] Comment on above: Order Comment: - Performed By: #### L 500.2500, L501.5200, L100.0500 ####[facility] [place] [address] [place], [address] Urea nitrogen [Mass/Vol] 12 mg/dL Normal 7-18 [facility] Comment on above: Order Comment: - Performed By: #### L 500.2500, L501.5200, L100.0500 ####[facility] [place] [address] [place], [address] CBC-Complete Blood Cnt No Di ffon 01-31-2024 Erythrocyte distribution width (RBC) [Ratio] 13.2 % Normal 11.6-14.6 [facility] [place] Comment on above: Order Comment: - Performed By: #### L 500.2500, L501.5200, L100.0500 ####[facility] [place] [address] [place], [address] Hematocrit (Bld) [Volume fraction] 45.1 % Normal 37-47 [facility] Comment on above: Order Comment: - Performed By: #### L 500.2500, L501.5200, L100.0500 ####[facility] [address] [place], [address] Hemoglobin (Bld) [Mass/Vol] 14.4 g/dL Normal 12.0-15.0 [facility] [place] Comment on above: Order Comment: - Performed By: #### L 500.2500, L501.5200, L100.0500 ####[facility] [address] [place], [address] MCH (RBC) [Entitic mass] 29.9 pg Normal 27.0-32.0 [facility] Comment on above: Order Comment: - Performed By: #### L 500.2500, L501.5200, L100.0500 ####[facility] [address] [place], [address] MCHC (RBC) [Mass/Vol] 31.9 g/dL Low 32-36 [facility] Comment on above: Order Comment: - Performed By: #### L 500.2500, L501.5200, L100.0500 ####[facility] [address] [place], [address] MCV (RBC) [Entitic vol] 93.6 fL Normal 81-99 [facility] Comment on above: Order Comment: - Performed By: #### L 500.2500, L501.5200, L100.0500 ####[facility] [place] [address] [place], [address] Platelet mean volume (Bld) [Entitic vol] 9.4 fL Normal 6.2-12.0 [facility] [place] Comment on above: Order Comment: - Performed By: #### L 500.2500, L501.5200, L100.0500 ####[facility] [place] [address] [place], [address] Platelets (Bld) [#/Vol] 388 10*3/uL Normal 150-450 [facility] Comment on above: Order Comment: - Performed By: #### L 500.2500, L501.5200, L100.0500 ####[facility] [address] [place], [address] RBC (Bld) [#/Vol] 4.82 10*6/uL Normal 4.2-5.4 [facility] Comment on above: Order Comment: - Performed By: #### L 500.2500, L501.5200, L100.0500 ####[facility] [address] [place], [address] RDW SD 45.2 fl High 35.1-43.9 [facility] Comment on above: Order Comment: - Performed By: #### L 500.2500, L501.5200, L100.0500 ####[facility] [address] [place], [address] WBC (Bld) [#/Vol] 7.4 10*3/uL Normal 4.4-11.0 [facility] Comment on above: Order Comment: - Performed By: #### L 500.2500, L501.5200, L100.0500 ####[facility] [address] [place], [address] Magnesiumon 01-31-2024 Magnesium [Mass/Vol] 2.2 mg/dL Normal 1.6-2.6 [facility] Comment on above: Order Comment: - Performed By: #### L 500.2500, L501.5200, L100.0500 ####[facility] [address] [place], [address] Orthopedic Visit Reporton Orthopedic Visit Report [facility] [address] [place] [address] [address] [place] [address] OFFICE VISIT Date of Service: 01/27/24 MR#: [id number] Acct: [id number] Name: RAMOS PADRON Rep #: [id number] : 1945 Provider: Dr. Micheal kumar MD Age/Sex: 78/F Location: [facility] Status: Signed Intake Vital Signs 01/22/24 12:14 01/24/24 15:28 Height 5 ft 1 in 5 ft 1 in Intake Visit Reasons: RIGHT SHOULDER Chief Complaint: fell on 01/21 Accompanied by: Self Is patient in pain?: Yes (6) Allergies No Known Allergies Allergy (Verified 01/27/24 08:30) Medications ???Medication ???Instructions ???Recorded ???Confirmed ???Type carbidopa 25 mg-levodopa 100 mg 1.5 tab PO TID parkinsons 11/22/21 01/27/24 History tablet acetaminophen 500 mg tablet 1,000 mg (2 x 500 mg) PO Q6H PRN 11/29/21 01/27/24 Rx PRN Pain Score 1-10 #0 tabs cholecalciferol (vitamin D3) 50 50 mcg PO DAILY 03/16/22 01/27/24 History mcg (2,000 unit) capsule (D3-2000) atorvastatin 20 mg tablet 20 mg PO QDAY 01/27/24 01/27/24 History Have you fallen in the past year?: Yes (01/22/24) PFSH Medical History De Quervain's tenosynovitis, right Osteoarthritis of carpometacarpal joint of right thumb Right hand pain Parkinson disease Acute bronchitis, unspecified URI (upper respiratory infection) Hypertension Carpal tunnel syndrome High cholesterol History of tobacco use Encounter for screening for malignant neoplasm of lung in former smoker who quit in past 15 years with 30 pack year history or greater Endometrial cancer Back pain Difficulty balancing Abnormal bruising Migraines Fatigue Shoulder pain Uterine cancer Surgical History History of left shoulder replacement History of hip surgery History of left hip replacement H/O: hysterectomy Family History Mother CVA (cerebral vascular accident) Hypertension Arthritis Heart disease Father Cancer Skin cancer Sister CVA (cerebral vascular accident) Hypertension Brother Hypertension CVA (cerebral vascular accident) Social History household members: spouse housing: house Smoking Status: Former smoker quit date: 01/02/15 pack-years: 40 Tobacco: How many years used: 40 Electronic Cigarette Use: not used second hand exposure: Yes quit status: has quit before alcohol intake: never what type of physical activity do you participate in: walking and other details: golf do you feel safe at home: Yes HPI RIGHT SHOULDER Details: This documentation accurately reflects the service provided and the decisions made by me, Dr. Micheal Dawson MD 01/27/24 0837. Part of today???s visit was documented by [ ], acting as scribe. RAMOS PADRON is a 78 year old F here today for R shoulder dislocation and closed reduction. Patient had a fall about 5 days ago last Saturday. Having multiple falls. Patient is right-hand dominant been in a sling since then. They are in a nursing home. per ED Patient presents with right shoulder pain that began after a fall today. Patient has a history of Parkinson's disease and frequent falls. Patient denies any head injury or loss of consciousness. Patient was seen here recently for dislocation of her right shoulder. Patient is currently wearing a sling and swath. Patient states her pain has resolved. Patient denies any paresthesias or weakness. Patient denies any other injuries. Supplemental Info [facility] Imaging Services [address] [place] [id number] Humerus min 2 Views MR#: [id number] Acct: [id number] Name: RAMOS PADRON Rep #: [id number] : 1945 F 78 From: Max Olsen MD PCP: Dr. Dmitry Burk MD Status: REG ER Study: Humerus min 2 Views Date of Exam: 01/22/24 Exam# [id number] Ordering Dr: Lázaro River DO [id number] STUDY: X-RAY - RIGHT HUMERUS REASON FOR EXAM: Female, 78 years old. Pain following a fall. TECHNIQUE: 3 view(s) of the humerus. COMPARISON: None. FINDINGS: Anterior inferior dislocation of the right glenohumeral joint. There is no demonstrated fracture or osseous destructive process. Soft tissue swelling RAD/Humerus min 2 Views IMPRESSION: Anterior inferior dislocation of the right glenohumeral joint. Electronically Signed: Max Olsen MD at 13:31 EST Reading Loc (more content not included)... Normal [facility] Emergency Department Summary on 01-24-2024 Emergency Department Summary [facility] Medical Records Department [address] [place] [address] Emergency Department Summary 01/24/24 MR#: [id number] Acct: [id number] Name: RAMOS PADRON Rep #: [id number] : 1945 78 From: John Webb DO PCP: Dr. Dmitry Burk MD Status:DEP ER Location: ED HPI History of Present Illness HPI Narrative: Patient presents with right shoulder pain that began after a fall today. Patient has a history of Parkinson's disease and frequent falls. Patient denies any head injury or loss of consciousness. Patient was seen here recently for dislocation of her right shoulder. Patient is currently wearing a sling and swath. Patient states her pain has resolved. Patient denies any paresthesias or weakness. Patient denies any other injuries. Chief Complaint: Upper Extremity Injury Informant: patient Occured/Mechanism Mechanism/Context: Yes fall Onset/Context/Timing Onset: Today Context: Sudden Onset Timing: Continuous Location: Right shoulder Worsened by: Nothing Relieved by: Nothing Associated Symptoms Associated Symptoms: Negative for Parasthesia, Weakness or Loss of Funtion [facility] Medical History De Quervain's tenosynovitis, right Osteoarthritis of carpometacarpal joint of right thumb Right hand pain Parkinson disease Acute bronchitis, unspecified URI (upper respiratory infection) Hypertension Carpal tunnel syndrome High cholesterol History of tobacco use Encounter for screening for malignant neoplasm of lung in former smoker who quit in past 15 years with 30 pack year history or greater Endometrial cancer Back pain Difficulty balancing Abnormal bruising Migraines Fatigue Shoulder pain Uterine cancer Home Medications ???Medication ???Instructions ???Recorded ???Last Taken ???Type carbidopa 25 mg-levodopa 100 mg 1.5 tab PO TID parkinsons 11/22/21 Unknown History tablet acetaminophen 500 mg tablet 1,000 mg (2 x 500 mg) PO Q6H PRN 11/29/21 Unknown Rx PRN Pain Score 1-10 #0 tabs cholecalciferol (vitamin D3) 50 50 mcg PO DAILY 03/16/22 Unknown History mcg (2,000 unit) capsule (D3-2000) rosuvastatin 10 mg tablet 10 mg PO DAILY 01/15/23 Unknown History Allergy/AdvReac Type Severity Reaction Status Date / Time No Known Allergies Allergy Verified 01/24/24 15:32 Family History Mother CVA (cerebral vascular accident) Hypertension Arthritis Heart disease Father Cancer Skin cancer Sister CVA (cerebral vascular accident) Hypertension Brother Hypertension CVA (cerebral vascular accident) Surgical History History of left shoulder replacement History of hip surgery History of left hip replacement H/O: hysterectomy Social History household members: spouse housing: house Smoking Status: Former smoker quit date: 01/02/15 pack-years: 40 Tobacco: How many years used: 40 Electronic Cigarette Use: not used second hand exposure: Yes quit status: has quit before alcohol intake: never what type of physical activity do you participate in: walking and other details: golf do you feel safe at home: Yes ROS ROS ED Constitutional Constitutional ED: Denies chills or fever(s) Eyes Eyes: Denies blurry vision or change in vision ENT ENT ED: Denies rhinorrhea or sore throat Cardiovascular Cardiovascular: Denies chest pain or palpitations Respiratory/Chest Respiratory/Chest: Denies cough or dyspnea Gastrointestinal Gastrointestinal: Denies nausea or vomiting Genitourinary Genitourinary ED: Denies dysuria or hematuria Musculoskeletal Musculoskeletal: Denies back pain or neck pain Integumentary Denies abscess or rash Neurologic Neurologic: Denies headache(s) or weakness Allergic/Immunologic Allergic/Immunologic ED: Denies mouth swelling or urticaria EXAM Physical Exam Const Vital Signs: 01/24/24 15:28 Temperature 98.9 F Temperature Source Oral Pulse Rate 79 Respiratory Rate 16 Blood Pressure 157/79 H Blood Pressure Mean 105 Pulse Ox 98 Positive well nourished and well developed General Appearance ED: well developed and NAD HEENT Reports moist mucous membranes Neck full ROM and supple Resp normal respiratory effort and clear to auscultation bilaterally Cardio regular rate and regular rhythm GI non-tender and non-distended Palpation: soft Extremity Extremity Narrative: There is mild tenderness of the right shoulder. There is some edema. There is no ecchymosis. There is no bony crepitance or step-off noted. Range of motion was limited in all motions of the right shoulder secondary to pain. Radial pulses (more content not included)... Normal [facility] Humerus min 2 Viewson 2023 Humerus min 2 Views [facility] Imaging Services [address] [place], [place] [address] Humerus min 2 Views MR#: [id number] Acct: [id number] Name: RAMOS PADRON Rep #: [id number] : 1945 F 78 From: Fareed Lovett MD PCP: Dr. Dmitry Burk MD Status: REG ER Study: Humerus min 2 Views Date of Exam: 01/24/24 Exam# [id number] Ordering Dr: John Webb DO [id number] EXAM: XR RIGHT HUMERUS, 2 OR MORE VIEWS CLINICAL INDICATION: Injury/Pain TECHNIQUE: Frontal and lateral views of the right humerus. COMPARISON: No relevant prior studies available. FINDINGS: BONES/JOINTS: No acute fracture or subluxation. Degenerative narrowing and bony spurring of the AC joint. SOFT TISSUES: Normal. No soft tissue swelling or gas. No radiopaque foreign body. RAD/Humerus min 2 Views IMPRESSION: 1. No acute osseous abnormality. 2. Degenerative narrowing and bony spurring of the AC joint. Electronically Signed: Fareed Lovett MD at 16:45 EST , CC: Dr. Dmitry Burk MD; Dr. John Webb DO Prehemmer: Signed Normal [facility] Basic Metabolic Profile (BMP )on 01-23-2024 BUN/CRE 21.9 RATIO High 10-20 [facility] Comment on above: Order Comment: . Performed By: #### L 501.9520, L501.5200, L500.4100, L506.1000, L100.0100, L503.0105, L500.2500, L501.9985 #### [facility] [address] [place], [address] CA,Total 9.0 mg/dL Normal 8.5-10.1 [facility] Comment on above: Order Comment: . Performed By: #### L 501.9520, L501.5200, L500.4100, L506.1000, L100.0100, L503.0105, L500.2500, L501.9985 #### [facility] [address] [place], [address] Chloride [Moles/Vol] 112 mmol/L High 98-107 [facility] Comment on above: Order Comment: . Performed By: #### L 501.9520, L501.5200, L500.4100, L506.1000, L100.0100, L503.0105, L500.2500, L501.9985 #### [facility] [address] [place], [address] CO2 [Moles/Vol] 24.0 mmol/L Normal 21.0-32.0 [facility] Comment on above: Order Comment: .1 Performed By: #### L 501.9520, L501.5200, L500.4100, L506.1000, L100.0100, L503.0105, L500.2500, L501.9985 #### [facility] [address] [place], [address] Creatinine [Mass/Vol] 0.87 mg/dL Normal 0.55-1.02 [facility] Comment on above: Order Comment: .1 Result Comment: The validity of the calculated GFR GFRAA in patients over 70 years has not been determined. Clinical correlation is essential. Performed By: #### L 501.9520, L501.5200, L500.4100, L506.1000, L100.0100, L503.0105, L500.2500, L501.9985 #### [facility] [address] [place], [address] EST GFR - AA 81 mL/min Normal >60 [facility] Comment on above: Order Comment: .1 Result Comment: Afri can [place] GFR Calc Performed By: #### L 501.9520, L501.5200, L500.4100, L506.1000, L100.0100, L503.0105, L500.2500, L501.9985 #### [facility] [address] [place], [place], [id number] GAP 7 Normal 5-15 [facility] Comment on above: Order Comment: .1 Performed By: #### L 501.9520, L501.5200, L500.4100, L506.1000, L100.0100, L503.0105, L500.2500, L501.9985 #### [facility] [address] [place], [place], [phone] GFR/1.73 sq M.predicted among non-blacks MDRD (S/P/Bld) [Vol rate/Area] 67 mL/min/{1.73_m2} Normal >60 [facility] Comment on above: Order Comment: .1 Result Comment: Non- GFR Calc Performed By: #### L 501.9520, L501.5200, L500.4100, L506.1000, L100.0100, L503.0105, L500.2500, L501.9985 #### [facility] [address] [place], [place], [id number] Glucose [Mass/Vol] 105 mg/dL Normal 74-106 [facility] Comment on above: Order Comment: .1 Result Comment: Fast ing Glucose result from 100 to 125 mg/dL suggests IMPAIRED HOMEOSTASIS per A.D.A. criteria. Performed By: #### L 501.9520, L501.5200, L500.4100, L506.1000, L100.0100, L503.0105, L500.2500, L501.9985 #### [facility] [address] [place], [address] Potassium [Moles/Vol] 3.5 mmol/L Normal 3.5-5.1 [facility] Comment on above: Order Comment: .1 Performed By: #### L 501.9520, L501.5200, L500.4100, L506.1000, L100.0100, L503.0105, L500.2500, L501.9985 #### [facility] [address] [place], [place], [phone] Sodium [Moles/Vol] 143 mmol/L Normal 136-145 [facility] Comment on above: Order Comment: .1 Performed By: #### L 501.9520, L501.5200, L500.4100, L506.1000, L100.0100, L503.0105, L500.2500, L501.9985 #### [facility] [address] [place], [place], [phone] Urea nitrogen [Mass/Vol] 19 mg/dL High 7-18 [facility] Comment on above: Order Comment: .1 Performed By: #### L 501.9520, L501.5200, L500.4100, L506.1000, L100.0100, L503.0105, L500.2500, L501.9985 #### [facility] [address] [place], [address] CBC W/Diff, Automatedon 11-2 1-2023 Absolute Lymph 2.50 X10 3/uL Normal 0.83-4.51 [facility] Comment on above: Order Comment: .1 Performed By: #### L 501.9520, L501.5200, L500.4100, L506.1000, L100.0100, L503.0105, L500.2500, L501.9985 #### [facility] [address] [place], [address] Absolute Neut 5.9 X10 3/uL Normal 2.0-7.7 [facility] Comment on above: Order Comment: .1 Performed By: #### L 501.9520, L501.5200, L500.4100, L506.1000, L100.0100, L503.0105, L500.2500, L501.9985 #### [facility] [address] [place], [address] Basophils/100 WBC (Bld) 0.4 % Normal 0-1 [facility] Comment on above: Order Comment: .1 Performed By: #### L 501.9520, L501.5200, L500.4100, L506.1000, L100.0100, L503.0105, L500.2500, L501.9985 #### [facility] [address] [place], [address] Eosinophils/100 WBC (Bld) 0.8 % Normal 0-5 [facility] Comment on above: Order Comment: 207.1 Performed By: #### L 501.9520, L501.5200, L500.4100, L506.1000, L100.0100, L503.0105, L500.2500, L501.9985 #### [facility] [address] [place], [address] Erythrocyte distribution width (RBC) [Ratio] 13.8 % Normal 11.6-14.6 [facility] Comment on above: Order Comment: 207.1 Performed By: #### L 501.9520, L501.5200, L500.4100, L506.1000, L100.0100, L503.0105, L500.2500, L501.9985 #### [facility] [address] [place], [address] Hematocrit (Bld) [Volume fraction] 42.7 % Normal 37-47 [facility] Comment on above: Order Comment: 207.1 Performed By: #### L 501.9520, L501.5200, L500.4100, L506.1000, L100.0100, L503.0105, L500.2500, L501.9985 #### [facility] [address] [facility] [facility] [place], [address] Hemoglobin (Bld) [Mass/Vol] 14.3 g/dL Normal 12.0-15.0 [facility] Comment on above: Order Comment: .1 Performed By: #### L 501.9520, L501.5200, L500.4100, L506.1000, L100.0100, L503.0105, L500.2500, L501.9985 #### [facility] [address] [facility] [facility] [place], [address] IG% 0.500 Normal 0.0-0.9 [facility] Comment on above: Order Comment: 207.1 Result Comment: IG% - Immature Granulocytes (promyelocytes, myelocytes and metamyelocytes) > 1% indicates that a LEFT SHIFT is Present. Performed By: #### L 501.9520, L501.5200, L500.4100, L506.1000, L100.0100, L503.0105, L500.2500, L501.9985 #### [facility] [address] [place], [address] Lymphocytes/100 WBC (Bld) 26.2 % Normal 19-41 [facility] Comment on above: Order Comment: 207.1 Performed By: #### L 501.9520, L501.5200, L500.4100, L506.1000, L100.0100, L503.0105, L500.2500, L501.9985 #### [facility] [address] [place], [address] MCH (RBC) [Entitic mass] 31.2 pg Normal 27.0-32.0 [facility] Comment on above: Order Comment: 207.1 Performed By: #### L 501.9520, L501.5200, L500.4100, L506.1000, L100.0100, L503.0105, L500.2500, L501.9985 #### [facility] [address] [place], [address] MCHC (RBC) [Mass/Vol] 33.5 g/dL Normal 32-36 [facility] Comment on above: Order Comment: .1 Performed By: #### L 501.9520, L501.5200, L500.4100, L506.1000, L100.0100, L503.0105, L500.2500, L501.9985 #### [facility] [address] [place], [address] MCV (RBC) [Entitic vol] 93.2 fL Normal 81-99 [facility] Comment on above: Order Comment: 207.1 Performed By: #### L 501.9520, L501.5200, L500.4100, L506.1000, L100.0100, L503.0105, L500.2500, L501.9985 #### [facility] [address] [place], [address] Monocytes/100 WBC (Bld) 10.5 % High 0-10 [facility] Comment on above: Order Comment: 207.1 Performed By: #### L 501.9520, L501.5200, L500.4100, L506.1000, L100.0100, L503.0105, L500.2500, L501.9985 #### [facility] [address] [place], [address] Neutrophils/100 WBC (Bld) 61.6 % Normal 47-70 [facility] Comment on above: Order Comment: . Performed By: #### L 501.9520, L501.5200, L500.4100, L506.1000, L100.0100, L503.0105, L500.2500, L501.9985 #### [facility] [address] [place], [address] Nucleated RBC (Bld) [#/Vol] 0 10*3/uL Normal 0-5 [facility] Comment on above: Order Comment: . Performed By: #### L 501.9520, L501.5200, L500.4100, L506.1000, L100.0100, L503.0105, L500.2500, L501.9985 #### [facility] [address] [place], [address] Platelet mean volume (Bld) [Entitic vol] 10.0 fL Normal 6.2-12.0 [facility] Comment on above: Order Comment: . Performed By: #### L 501.9520, L501.5200, L500.4100, L506.1000, L100.0100, L503.0105, L500.2500, L501.9985 #### [facility] [address] [place], [address] Platelets (Bld) [#/Vol] 290 10*3/uL Normal 150-450 [facility] Comment on above: Order Comment: . Performed By: #### L 501.9520, L501.5200, L500.4100, L506.1000, L100.0100, L503.0105, L500.2500, L501.9985 #### [facility] [address] [place], [address] RBC (Bld) [#/Vol] 4.58 10*6/uL Normal 4.2-5.4 [facility] Comment on above: Order Comment: .1 Performed By: #### L 501.9520, L501.5200, L500.4100, L506.1000, L100.0100, L503.0105, L500.2500, L501.9985 #### [facility] [address] [place], [address] RDW SD 46.5 fl High 35.1-43.9 [facility] Comment on above: Order Comment: . Performed By: #### L 501.9520, L501.5200, L500.4100, L506.1000, L100.0100, L503.0105, L500.2500, L501.9985 #### [facility] [address] [place], [place], [phone] (530) WBC (Bld) [#/Vol] 9.5 10*3/uL Normal 4.4-11.0 [facility] Comment on above: Order Comment: . Performed By: #### L 501.9520, L501.5200, L500.4100, L506.1000, L100.0100, L503.0105, L500.2500, L501.9985 #### [facility] [address] [place], [place], [phone] (919) Hemoglobin A1con 01-23-2024 HbA1c (Bld) [Mass fraction] 5.5 % Normal 3.8-5.6 [facility] Comment on above: Order Comment: .1 Result Comment: Norm al < 5.7 % Prediabetic 5.7 - 6.4 % Diabetic >or= 6.5 % Please note range changes. Performed By: #### L 501.9520, L501.5200, L500.4100, L506.1000, L100.0100, L503.0105, L500.2500, L501.9985 ####[facility] [id number] [place], [address] Lipid Profileon 01-23-2024 Cholesterol [Mass/Vol] 237 mg/dL High 200 [facility] Comment on above: Order Comment: 207.1 Result Comment: <200 mg/dL Desirable 200-240 mg/dL Borderline >240 mg/dL High Risk Performed By: #### L 501.9520, L501.5200, L500.4100, L506.1000, L100.0100, L503.0105, L500.2500, L501.9985 #### [facility] [address] [place], [address] Cholesterol in HDL [Mass/Vol] 56 mg/dL Normal [facility] Comment on above: Order Comment: 207.1 Result Comment: The drugs N-Acetylcysteine and Metamizole may falsely depress this assay. Reference Range HDL <40 mg/dL Low HDL Cholesterol HDL >or= 60 mg/dL High HDL Cholesterol Performed By: #### L 501.9520, L501.5200, L500.4100, L506.1000, L100.0100, L503.0105, L500.2500, L501.9985 #### [facility] [address] [place], [address] Cholesterol in LDL [Mass/Vol] 138 mg/dL High 0-130 [facility] Comment on above: Order Comment: .1 Performed By: #### L 501.9520, L501.5200, L500.4100, L506.1000, L100.0100, L503.0105, L500.2500, L501.9985 #### [facility] [address] [place], [address] Cholesterol in VLDL [Mass/Vol] 43 mg/dL High 5-40 [facility] Comment on above: Order Comment: 207.1 Performed By: #### L 501.9520, L501.5200, L500.4100, L506.1000, L100.0100, L503.0105, L500.2500, L501.9985 #### [facility] [address] [place], [place], [phone] (946) Triglyceride [Mass/Vol] 214 mg/dL High [facility] Comment on above: Order Comment: 207.1 Result Comment: The drugs N-Acetylcysteine and Metamizole may falsely depress this assay. Serum Triglycerides Reference Interval Normal <150 mg/dL Borderline high 150 - 199 mg/dL High 200 - 499 mg/dL Very High > or = 500 mg/dL Performed By: #### L 501.9520, L501.5200, L500.4100, L506.1000, L100.0100, L503.0105, L500.2500, L501.9985 #### [facility] [address] [place], [place], [id number] Magnesiumon 01-23-2024 Magnesium [Mass/Vol] 2.4 mg/dL Normal 1.6-2.6 [facility] Comment on above: Order Comment: .1 Performed By: #### L 501.9520, L501.5200, L500.4100, L506.1000, L100.0100, L503.0105, L500.2500, L501.9985 #### [facility] [address] [place], [address] Thyroid Stim Hormone (TSH)on 01-23-2024 TSH 1.230 uIU/mL Normal 0.358-3.74 0 [facility] Comment on above: Order Comment: .1 Performed By: #### L 501.9520, L501.5200, L500.4100, L506.1000, L100.0100, L503.0105, L500.2500, L501.9985 ####[facility] [address] [place], [place], [id number] Vitamin B12on 01-23-2024 Cobalamin (Vitamin B12) [Mass/Vol] 730 pg/mL Normal 211-911 [facility] Comment on above: Order Comment: 207.1 Performed By: #### L 501.9520, L501.5200, L500.4100, L506.1000, L100.0100, L503.0105, L500.2500, L501.9985 #### [facility] [address] [place], [address] Vitamin D,25 Hydroxyon 01-22 Vitamin D 25-OH 40.4 ng/mL Normal [facility] Comment on above: Order Comment: 207.1 Result Comment: Deborah min D 25(OH) Status Range Deficiency <20 ng/mL (50nmol/L) Insufficiency 20 - 30 ng/mL (50 - 75 nmol/L) Sufficiency 30 - 100 ng/mL (75 - 250 nmol/L) Toxicity >100 ng/mL (>250 nmol/L) Performed By: #### L 501.9520, L501.5200, L500.4100, L506.1000, L100.0100, L503.0105, L500.2500, L501.9985 #### [facility] [address] [place], [address] Emergency Department Summary on 01-22-2024 Emergency Department Summary [facility] Medical Records Department [address] [facility] [place] [address] Emergency Department Summary 01/22/24 MR#: [id number] Acct: [id number] Name: RAMOS PADRON Rep #: [id number] : 1945 78 From: Lázaro River DO PCP: Dr. Dmitry Burk MD Status:REG ER Location: ED ADDENDUM by Dr. John Webb DO on 01/22/24 at 1714 Care of the patient was turned over to ms pending [facility]. Social work was able to get the patient placed to [facility]. Patient was admitted to [facility] nursing [facility]. 01/22/24 1714 Cosigner Signature (if applicable): cc: Dr. Dmitry Burk MD * Signed HPI History of Present Illness Chief Complaint: Fall Informant: patient and spouse/S.O. Narrative Narrative: 78-year-old female history of Parkinson's presenting to the emergency room following a fall. Patient is a frequent fall her. She fell in the bathroom landing up against the commode. She notes pain to the right shoulder and a skin tear to the right wrist. She denies hitting her head or having any neck back or leg pain. She states she is not on any blood thinners. She did not damage her glasses. No loss of consciousness. was able to get her up. [facility] Medical History De Quervain's tenosynovitis, right Osteoarthritis of carpometacarpal joint of right thumb Right hand pain Parkinson disease Acute bronchitis, unspecified URI (upper respiratory infection) Hypertension Carpal tunnel syndrome High cholesterol History of tobacco use Encounter for screening for malignant neoplasm of lung in former smoker who quit in past 15 years with 30 pack year history or greater Endometrial cancer Back pain Difficulty balancing Abnormal bruising Migraines Fatigue Shoulder pain Uterine cancer Home Medications ???Medication ???Instructions ???Recorded ???Last Taken ???Type carbidopa 25 mg-levodopa 100 mg 1.5 tab PO TID parkinsons 11/22/21 Unknown History tablet acetaminophen 500 mg tablet 1,000 mg (2 x 500 mg) PO Q6H PRN 11/29/21 Unknown Rx PRN Pain Score 1-10 #0 tabs cholecalciferol (vitamin D3) 50 50 mcg PO DAILY 03/16/22 Unknown History mcg (2,000 unit) capsule (D3-2000) rosuvastatin 10 mg tablet 10 mg PO DAILY 01/15/23 Unknown History docusate sodium 100 mg capsule 100 mg PO BID #60 caps 11/28/23 Unknown Rx (Colace) tramadol 50 mg tablet 50 mg PO Q6H PRN pain #12 tabs 11/28/23 Unknown Rx Allergy/AdvReac Type Severity Reaction Status Date / Time No Known Allergies Allergy Verified 01/22/24 12:17 Family History Mother CVA (cerebral vascular accident) Hypertension Arthritis Heart disease Father Cancer Skin cancer Sister CVA (cerebral vascular accident) Hypertension Brother Hypertension CVA (cerebral vascular accident) Surgical History History of left shoulder replacement History of hip surgery History of left hip replacement H/O: hysterectomy Social History household members: spouse housing: house Smoking Status: Former smoker quit date: 01/02/15 pack-years: 40 Tobacco: How many years used: 40 Electronic Cigarette Use: not used second hand exposure: Yes quit status: has quit before alcohol intake: never what type of physical activity do you participate in: walking and other details: golf do you feel safe at home: Yes ROS ROS ED Constitutional Constitutional ED: Denies chills, fever(s) or weight loss Eyes Eyes: Denies change in vision or diplopia ENT ENT ED: Denies ear pain, rhinorrhea or sore throat Cardiovascular Cardiovascular: Denies chest pain, orthopnea, palpitations or racing heartbeat Respiratory/Chest Respiratory/Chest: Denies cough, dyspnea or orthopnea Gastrointestinal Gastrointestinal: Denies abdominal pain, diarrhea, nausea or vomiting Genitourinary Genitourinary ED: Denies dysuria, hematuria or urinary frequency Musculoskeletal Musculoskeletal: Reports other Details: Right shoulder pain ; Denies arthralgias, back pain, myalgias or neck pain Integumentary Reports other Details: Skin tear right wrist ; Denies abscess or rash Neurologic Neurologic: Denies headache(s) or weakness Psychiatric Psychiatric: Denies anxiety, depression, suicidal ideation or suicidal thoughts Endocrine Endocrinology: Denies polydipsia, polyphagia or polyuria Allergic/Immunologic Allergic/Immunologic ED: Denies mouth swelling, tongue swelling or urticaria EXAM Physical Exam Const Vital Signs: 01/22/24 12:14 01/22/24 13:12 01/22/24 14:00 Temperature 97.8 F (more content not included)... Normal [facility] Humerus min 2 Viewson 2023 Humerus min 2 Views [facility] Imaging Services [address] [place], [place] [id number] Humerus min 2 Views MR#: [id number] Acct: [id number] Name: RAMOS PADRON Rep #: [id number] : 1945 F 78 From: Max coto MD PCP: Dr. Dmitry Burk MD Status: REG ER Study: Humerus min 2 Views Date of Exam: 01/22/24 Exam# [id number] Ordering Dr: Lázaro River DO [id number] STUDY: X-RAY - RIGHT HUMERUS REASON FOR EXAM: Female, 78 years old. Pain following a fall. TECHNIQUE: 3 view(s) of the humerus. COMPARISON: None. FINDINGS: Anterior inferior dislocation of the right glenohumeral joint. There is no demonstrated fracture or osseous destructive process. Soft tissue swelling RAD/Humerus min 2 Views IMPRESSION: Anterior inferior dislocation of the right glenohumeral joint. Electronically Signed: Max Olsen MD at 13:31 EST Reading Location ID and State: [address] [place] [address] , Service support , CC: Dr. Dmitry Burk MD; Dr. Lázaro River DO Prehem[place]: Signed Normal [facility] Shoulder min 2 Viewson 01-21 Shoulder min 2 Views [facility] Imaging Services [address] [place] [id number] Shoulder min 2 Views MR#: [id number] Acct: [id number] Name: RAMOS PADRON Rep #: [id number] : 1945 F 78 From: Max coto MD PCP: Dr. Dmitry Burk MD Status: REG ER Study: Shoulder min 2 Views Date of Exam: 01/22/24 Exam# [id number] Ordering Dr: Lázaro River DO [id number] STUDY: X-RAY - RIGHT SHOULDER REASON FOR EXAM: Female, 78 years old. Reduction TECHNIQUE: 2 view(s) of the shoulder. COMPARISON: Comparison is made with prior study done earlier today. FINDINGS: Satisfactory reduction of the glenohumeral joint. There is hypertrophic osteoarthrosis of the acromioclavicular joint with inferior osseous spur formation. Normal acromion. Degenerative changes of the humeral head. The soft tissue structures are unremarkable. Normal visualized pulmonary apex. RAD/Shoulder min 2 Views IMPRESSION: Satisfactory reduction of the glenohumeral joint. Electronically Signed: Max Olsen MD at 14:31 EST , CC: Dr. Dmitry Burk MD; Dr. Lázaro River DO Prehemmer: Signed Normal [facility] CNCOon 01-20-2024 CNCO Letter Text Normal [facility] CNOVon 01-20-2024 CNOV Office Visit (NRMDN) -- RAMOS PADRON ([id number]) 1945 F Date Time Provider Department 01/20/24 10:00 AM JULIET CHANEL During your visit today, we recorded the following information about you: Pulse Blood pressure Weight 83/minute 127/79 63.5 kg Juliet Chanel MD 01/20/2024 11:03 AM Signed It was a pleasure to see you today. We addressed the following diagnoses: Psp (progressive supranuclear palsy) (hcc) My recommendations are as follows: Try increasing Sinemet up to 2 tabs 3 times a day. Continue exercise - Movement Disorders Medication Schedule: Medications Sinemet 25/100 1-2 1-2 1-2 No follow-ups on file. If there are any concerns before your next visit, please call or you can send a message through [employer]. You can also now schedule and select appointments through [employer]. MD Yanique Phillips Kristin, MD 01/20/2024 12:38 PM Signed [facility] - FOLLOW UP EVALUATION Dmitry Burk MD [address] [place] [address] [facility] [address] I had the pleasure of seeing Ms. Padron for follow up today. She is a 78 year old right-handed female with a history of PSP since 2019. She is seen with her . Subjective Previous Plan-09/16/2023 Visit: Consider seeing urology - Try increasing the carbidopa-levodopa and see if the higher dose is helpful. Increase to 1.5 tab 3 times a day for 2 weeks and then increase to 2 tabs 3 times a day for at least 2 weeks. Continue with the dose that seems best, 1-2 tabs 3 times a day - Stop ropinirole - I'll ask someone form the research team to contact you about the study. Interval History: Changes since last visit over the past few months. Good and bad times. More bad than before. More forgetful. More imbalance. is worried about her decision making. She has nearly given out SS number to people wanting to send her hundreds of dollars of DME supplies. She had control of finances. Didn't pay the electric bill and got turn off notice. Didn't pay the credit card for 2 months. Doesn't answer her phone or check voice mail. No land line. is taking over everything financial. Has everything covered with the bank. Her 401k is all that is left. Asking for letter stating she has cognitive impairment to get POA. Not pursuing guardianship. She indicates she agrees with everything he is doing. Had Botox in her bladder a couple of weeks ago. Has had an infection which was treated. Saw PCP and had blood work about a month ago. Falling about every day. Day care 3 days per week. Exercise class one day per week at [facility]. If left alone she will play on her phone and get no physical activity. No depth perception. Parkinson's Medication Schedule - as of the start of the visit: Medications Sinemet 25/100 1.5 1.5 1.5 Prior Anti-Parkinson Therapies Carbidopa/Levodopa Questionnaires In addition, the following areas that may be affected by abnormal involuntary movements were evaluated: Daily activities Difficulties with eatin (none) Difficulties in dressing: Yes (slight) Difficulties with hygiene activities: Difficulties with handwriting: Yes (mild) Difficulties with doing hobbies and other activities: Difficulties turning in bed: Yes (mild) Difficulties getting out of bed, car or chair: Yes (moderate) Tremors/Gait/Balance Shaking or tremors: no Walking and balance problems: yes Number of falls in the Last Month: 30 Gait freezing: Yes (mild) Autonomic/Pain Lightheadeness on standing: no Urinary problems: Yes (moderate) Constipation problems: 0 (none) Pain and other sensations: Speech/Swallowing Speech problems: Yes (mild) Drooling: Yes (mild) Chewing and swallowing problems: 0 (none) Sleep/Fatigue Sleep problems: Yes (mild) Daytime sleepiness: Yes (mild) Fatigue: Yes (mild) Mood/Behavior Depression: PHQ-9 Score: 8 usually representing mild (5-9) depression. Anxiety: Finally, the following table shows the patient's overall global physical and mental health using the PROMIS scale: PROMIS-10 Flowsheet Row Office Visit from 01/20/2024 in Neurology Office Visit from 05/15/2023 in Neurology Global Physical Health T Score 37.4 44.9 Global Mental Health T Score 36.3 41.1 0-10 Standard Pain Scale 3 3 *PROMIS-10 scoring scale: mean = 50, over 50 is above average, under 50 is below average In addition, the following Parkinson Lifestyle-associated features were evaluated: Conditions Prior to Dx: Depression: No Anxiety: No Melanoma: No Constipation: No Yelling: No Head Trauma: No Habits/exposures Prior to Dx Smoking: Yes (but quit) Caffeinated coffee (1-cup+): Yes (but quit) Caffeinated soda/tea (2 cups+): Alcohol (1 bottle/shot/glass+): No Exercise (3x/wk+): Yes (and still do) Ibuprofen use (1x/wk+): Pesticides: No Welding: No ALLERGIES (more content not included)... Normal [facility] [id number] 11-08-2023 [id number] HNO ID: [id number] Author: JESENIA JAMES PT, DPT Service: ? Author Type: Physical Therapist Type: [id number] Filed: 11/08/2023 14:50 Note Text: [facility] Physical Therapy Plan of Care Certification Patient Name: Ramos Padron : 1945 [facility] #: [id number] Date: 11/08/2023 To: Juliet Chanel MD From Therapist: Jesenia James PT, DPT RE: Patient Certification/ Recertification Your review, approval and electronic signature are required in order to comply with Payor: MEDICARE / Plan: MEDICARE A AND B / Product Type: Medicare / regulations. The identified Physical Therapy PLAN OF CARE for the patient is as follows: G23.1 PSP (progressive supranuclear palsy) (HCC) (primary encounter diagnosis) R26.89 Imbalance R26.9 Abnormality of gait R29.6 Falls frequently PLAN OF CARE UPDATE: Assessment: Ramos Padron is discontinued from Physical Therapy services due to maximal benefit.. Patient was seen for 10 visits from Start of Care Date: 05/27/23 to 11/08/2023 and treatment included: Therapeutic exercise, Neuromuscular re-education, Gait training, and Patient/Family/Caregiver Education. Pt demonstrates minimal progress with PT and since last recheck. Reasoning does not appear to be lack of exercise or physical limitations. Falls and decline appear to be due to lack of compliance with PT and recommendations to keep her safe. States she knows things she shouldn't do but just finds herself doing themanyway. Appears unwilling to change her behaviors despite family and PT recommendations. Due to this unable to continue care at this time. Goals for Episode of Care: updated 11/08/2023 Patient will perform sit to stand transfers with modified independence and improving safety with normal speed.--not met Patient will ambulate with Ustep walker with stand by assist with minimal cues for proper use of device.--not met Patient demonstrates independent and proper use of assistive device to allow for improved walking quality and safety therefore reducing the risk of falls.--not met Patient will complete 10 reps on 30 second chair stand test to decrease risk of falls.--not met Pt will verbalize decrease fall frequency from daily--not met Patient Goals: Be more stable For further details regarding this patient refer to the Physical Therapy electronically documented visit dated 11/08/2023. Provider Attestation I have reviewed the treatment plan for Ramos Padron, [facility]# [id number] for the period of 11/08/23 -- 11/08/23, established on 11/08/2023. Signature certifies the need for therapy services. [facility] CNTHERAPYon 11-08-2023 CNTHERAPY OT/PT/Speech Visit (PTMDRG) -- RAMOS PADRON ([id number]) 1945 F Date Time Provider Department 11/08/23 10:00 AM JESENIA JAMES Date Time Provider Department Center 11/08/2023 10:00 AM [id number]-MZHFJESENIA JAMES [facility] Reason for Visit: PT Discharge [752] Primary Visit Diagnosis:PSP (progressive supranuclear palsy) ([facility]) [G23.1] Other Visit Diagnoses:Imbalance [R26.89] Abnormality of gait [R26.9] Falls frequently [R29.6] Allergies As of Date: 11/08/2023 (No Known Allergies) Date Reviewed: 09/16/2023 Reviewed by: Juliet Chanel MD - Fully Assessed Prescriptions as of 11/08/2023 - SINEMET 25-100 mg per tablet Take 2 tablets by mouth three times a day. - acetaminophen 650 mg CR tablet 1,300 mg. - Cholecalciferol, Vitamin D3, 50 mcg (2,000 unit) cap Take by mouth as directed. - ibuprofen (MOTRIN) 200 mg tablet Take 200 mg by mouth every 6 hours as needed. - rosuvastatin (CRESTOR) 10 mg tablet Take 1 tablet by mouth once daily. Normal [facility] CNTHERAPYon 08-09-2023 CNTHERAPY OT/PT/Speech Visit (PTMDRG) -- RAMOS PADRON ([id number]) 1945 F Date Time Provider Department 08/09/23 2:00 PM JESENIA JAMES Date Time Provider Department Center 08/09/2023 2:00 PM [id number] JAMES [facility] Reason for Visit: PT Progress Note [1596] Primary Visit Diagnosis:PSP (progressive supranuclear palsy) (HCC) [G23.1] Other Visit Diagnoses:Imbalance [R26.89] Abnormality of gait [R26.9] Falls frequently [R29.6] Allergies As of Date: 08/09/2023 (No Known Allergies) Date Reviewed: 05/15/2023 Reviewed by: Juliet Chanel MD - Fully Assessed Prescriptions as of 08/31/2023 - SINEMET 25-100 mg per tablet Take 1 tablet by mouth three times a day. Take three times daily - acetaminophen 650 mg CR tablet 1,300 mg. - Cholecalciferol, Vitamin D3, 50 mcg (2,000 unit) cap Take by mouth as directed. - ibuprofen (MOTRIN) 200 mg tablet Take 200 mg by mouth every 6 hours as needed. - rosuvastatin (CRESTOR) 10 mg tablet Take 1 tablet by mouth once daily. -- Security Sales Consultant: Addendum Therapy (PT/OT/Speech/Resp) ID: [id number] 08/09/2023 2:13 PM Author: JESENIA JAMES Signed by JESENIA JAMES PT, DPT on 08/09/2023 at 2:13 PM * * * This document replaces document [id number] * * * Document text: Program_ID:[id number] Access Code: [email or web address] URL: https://Modify/ Date: 08-09-2023 Prepared By: Jesenia James Program Notes Exercises - Supine Bridge - 1 x daily - 7 x weekly - 1 sets - 10 reps - Supine Active Straight Leg Raise - 1 x daily - 7 x weekly - 1 sets - 10 reps - Hip Fall out/Hip Drop - 1 x daily - 7 x weekly - 1 sets - 10 reps - Supine Lower Trunk Rotation - 1 x daily - 7 x weekly - 1 sets - 10 reps - Seated Heel Raise - 1 x daily - 7 x weekly - 1 sets - 10 reps - Seated Toe Raise - 1 x daily - 7 x weekly - 1 sets - 10 reps [facility] THERAPY NTon 08-09-2023 THERAPY NT HNO ID: [id number] Author: JESENIA JAMES, PT, DPT Service: Physical Therapy Author Type: Physical Therapist Type: Therapy (PT/OT/Speech/Resp) Filed: 08/09/2023 14:13 Note Text: Program_ID:[id number] Access Code: [email or web address] URL: https://Modify/ Date: 08-09-2023 Prepared By: Jesenia James Program Notes Exercises - Supine Bridge - 1 x daily - 7 x weekly - 1 sets - 10 reps - Supine Active Straight Leg Raise - 1 x daily - 7 x weekly - 1 sets - 10 reps - Hip Fall out/Hip Drop - 1 x daily - 7 x weekly - 1 sets - 10 reps - Supine Lower Trunk Rotation - 1 x daily - 7 x weekly - 1 sets - 10 reps - Seated Heel Raise - 1 x daily - 7 x weekly - 1 sets - 10 reps - Seated Toe Raise - 1 x daily - 7 x weekly - 1 sets - 10 reps Normal [facility] CNTHERAPYon 07-17-2023 CNTHERAPY OT/PT/Speech Visit (PTMDRG) -- RAMOS PADRON ([id number]) 1945 F [place] Date Time Provider Department 07/17/23 10:45 AM LYSSA KEMP Date Time Provider Department Center 07/17/2023 10:45 AM [id number] KEMP [facility] Reason for Visit: Physical Therapy [503] Primary Visit Diagnosis:PSP (progressive supranuclear palsy) (HCC) [G23.1] Other Visit Diagnoses:Imbalance [R26.89] Abnormality of gait [R26.9] Falls frequently [R29.6] Allergies As of Date: 07/17/2023 (No Known Allergies) Date Reviewed: 05/15/2023 Reviewed by: Juliet Chanel MD - Fully Assessed Prescriptions as of 07/17/2023 - SINEMET 25-100 mg per tablet Take 1 tablet by mouth three times a day. Take three times daily - acetaminophen 650 mg CR tablet 1,300 mg. - Cholecalciferol, Vitamin D3, 50 mcg (2,000 unit) cap Take by mouth as directed. - ibuprofen (MOTRIN) 200 mg tablet Take 200 mg by mouth every 6 hours as needed. - rosuvastatin (CRESTOR) 10 mg tablet Take 1 tablet by mouth once daily. -- Normal [facility] CNTHERAPYon 07-12-2023 CNTHERAPY OT/PT/Speech Visit (PTMDRG) -- RAMOS PADRON ([id number]) 1945 [place] Date Time Provider Department 07/12/23 10:45 AM LYSSA KEMP Date Time Provider Department [place] 07/12/2023 10:45 AM [id number] KEMP [facility] Reason for Visit: Physical Therapy [503] Primary Visit Diagnosis:PSP (progressive supranuclear palsy) (HCC) [G23.1] Other Visit Diagnoses:Imbalance [R26.89] Abnormality of gait [R26.9] Falls frequently [R29.6] Allergies As of Date: 07/12/2023 (No Known Allergies) Date Reviewed: 05/15/2023 Reviewed by: Juliet Chanel MD - Fully Assessed Prescriptions as of 07/12/2023 - SINEMET 25-100 mg per tablet Take 1 tablet by mouth three times a day. Take three times daily - acetaminophen 650 mg CR tablet 1,300 mg. - Cholecalciferol, Vitamin D3, 50 mcg (2,000 unit) cap Take by mouth as directed. - ibuprofen (MOTRIN) 200 mg tablet Take 200 mg by mouth every 6 hours as needed. - rosuvastatin (CRESTOR) 10 mg tablet Take 1 tablet by mouth once daily. -- Normal [facility] CNTHERAPYon 07-05-2023 CNTHERAPY OT/PT/Speech Visit (PTMDRG) -- RAMOS PADRON ([id number]) 1945 F [place] Date Time Provider Department 07/05/23 10:00 AM LYSSA KEMP Date Time Provider Department [place] 07/05/2023 10:00 AM [id number] KEMP [facility] Reason for Visit: Physical Therapy [503] Primary Visit Diagnosis:PSP (progressive supranuclear palsy) (HCC) [G23.1] Other Visit Diagnoses:Imbalance [R26.89] Abnormality of gait [R26.9] Falls frequently [R29.6] Allergies As of Date: 07/05/2023 (No Known Allergies) Date Reviewed: 05/15/2023 Reviewed by: Juliet Chanel MD - Fully Assessed Prescriptions as of 07/05/2023 - acetaminophen 650 mg CR tablet 1,300 mg. - carbidopa-levodopa (SINEMET) 25-100 mg per tablet take 2 AND 1/2 tablets by mouth three times a day - Cholecalciferol, Vitamin D3, 50 mcg (2,000 unit) cap Take by mouth as directed. - ibuprofen (MOTRIN) 200 mg tablet Take 200 mg by mouth every 6 hours as needed. - rosuvastatin (CRESTOR) 10 mg tablet Take 1 tablet by mouth once daily. -- [facility] CNTHERAPYon 06-28-2023 CNTHERAPY OT/PT/Speech Visit (PTMDRG) -- RAMOS PADRON ([id number]) 1945 F [place] Date Time Provider Department 06/28/23 10:45 AM JESENIA JAMES Date Time Provider Department [place] 06/28/2023 10:45 AM [id number] JAMES [facility] Reason for Visit: PT Progress Note [1596] Primary Visit Diagnosis:PSP (progressive supranuclear palsy) ([facility]) [G23.1] Other Visit Diagnoses:Imbalance [R26.89] Abnormality of gait [R26.9] Falls frequently [R29.6] Allergies As of Date: 06/28/2023 (No Known Allergies) Date Reviewed: 05/15/2023 Reviewed by: Juliet Chanel MD - Fully Assessed Prescriptions as of 06/30/2023 - acetaminophen 650 mg CR tablet 1,300 mg. - carbidopa-levodopa (SINEMET) 25-100 mg per tablet take 2 AND 1/2 tablets by mouth three times a day - Cholecalciferol, Vitamin D3, 50 mcg (2,000 unit) cap Take by mouth as directed. - ibuprofen (MOTRIN) 200 mg tablet Take 200 mg by mouth every 6 hours as needed. - rosuvastatin (CRESTOR) 10 mg tablet Take 1 tablet by mouth once daily. -- [facility] CNTHERAPYon 06-21-2023 CNTHERAPY OT/PT/Speech Visit (PTMDRG) -- RAMOS PADRON ([id number]) 1945 F [place] Date Time Provider Department 06/21/23 9:15 AM LYSSA KEMPG Date Time Provider Department [place] 06/21/2023 9:15 AM [id number] KEMP [facility] Reason for Visit: Physical Therapy [503] Primary Visit Diagnosis:PSP (progressive supranuclear palsy) (HCC) [G23.1] Other Visit Diagnoses:Imbalance [R26.89] Abnormality of gait [R26.9] Falls frequently [R29.6] Allergies As of Date: 06/21/2023 (No Known Allergies) Date Reviewed: 05/15/2023 Reviewed by: Juliet Chanel MD - Fully Assessed Prescriptions as of 06/21/2023 - acetaminophen 650 mg CR tablet 1,300 mg. - carbidopa-levodopa (SINEMET) 25-100 mg per tablet take 2 AND 1/2 tablets by mouth three times a day - Cholecalciferol, Vitamin D3, 50 mcg (2,000 unit) cap Take by mouth as directed. - ibuprofen (MOTRIN) 200 mg tablet Take 200 mg by mouth every 6 hours as needed. - rosuvastatin (CRESTOR) 10 mg tablet Take 1 tablet by mouth once daily. [facility]/PT/Speech Visit (PTMDRG) -- RAMOS PADRON ([id number]) 1945 F [place] Date Time Provider Department 06/14/23 9:15 AM LYSSA KEMP Date Time Provider Department [place] 06/14/2023 9:15 AM [id number] KEMP [facility] Reason for Visit: Physical Therapy [503] Primary Visit Diagnosis:PSP (progressive supranuclear palsy) (HCC) [G23.1] Other Visit Diagnoses:Imbalance [R26.89] Abnormality of gait [R26.9] Falls frequently [R29.6] Allergies As of Date: 06/14/2023 (No Known Allergies) Date Reviewed: 05/15/2023 Reviewed by: Juliet Chanel MD - Fully Assessed Prescriptions as of 06/14/2023 - acetaminophen 650 mg CR tablet 1,300 mg. - carbidopa-levodopa (SINEMET) 25-100 mg per tablet take 2 AND 1/2 tablets by mouth three times a day - Cholecalciferol, Vitamin D3, 50 mcg (2,000 unit) cap Take by mouth as directed. - ibuprofen (MOTRIN) 200 mg tablet Take 200 mg by mouth every 6 hours as needed. - rosuvastatin (CRESTOR) 10 mg tablet Take 1 tablet by mouth once daily. -- [facility] CNTHERAPYon 06-07-2023 CNTHERAPY OT/PT/Speech Visit (PTMDRG) -- GWENRAMOS WILBURN ([id number]) 1945 F [place] Date Time Provider Department 06/07/23 9:15 AM LYSSA KEMP Date Time Provider Department [place] 06/07/2023 9:15 AM [id number] KEMP [facility] Reason for Visit: Physical Therapy [503] Primary Visit Diagnosis:PSP (progressive supranuclear palsy) ([facility]) [G23.1] Other Visit Diagnoses:Imbalance [R26.89] Abnormality of gait [R26.9] Falls frequently [R29.6] Allergies As of Date: 06/07/2023 (No Known Allergies) Date Reviewed: 05/15/2023 Reviewed by: Juliet Chanel MD - Fully Assessed Prescriptions as of 06/07/2023 - acetaminophen 650 mg CR tablet 1,300 mg. - carbidopa-levodopa (SINEMET) 25-100 mg per tablet take 2 AND 1/2 tablets by mouth three times a day - Cholecalciferol, Vitamin D3, 50 mcg (2,000 unit) cap Take by mouth as directed. - ibuprofen (MOTRIN) 200 mg tablet Take 200 mg by mouth every 6 hours as needed. - rosuvastatin (CRESTOR) 10 mg tablet Take 1 tablet by mouth once daily. -- [facility] [id number] 05-27-2023 [id number] HNO ID: [id number] Author: JESENIA JAMES PT, DPT Service: ? Author Type: Physical Therapist Type: [id number] Filed: 05/27/2023 13:52 Note Text: [facility] Physical Therapy Plan of Care Certification Patient Name: Ramos Padron : 1945 [facility] #: [id number] Date: 05/27/2023 To: Juliet Chanel MD From Therapist: Jesenia James, PT, DPT RE: Patient Certification/ Recertification Your review, approval and electronic signature are required in order to comply with Payor: MEDICARE / Plan: MEDICARE A AND B / Product Type: Medicare / regulations. The identified Physical Therapy PLAN OF CARE for the patient is as follows: R26.89 Imbalance (primary encounter diagnosis) G23.1 PSP (progressive supranuclear palsy) ([facility]) R26.9 Abnormality of gait R29.6 Falls frequently PLAN OF CARE: Assessment: Ramos Padron presents with 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 She presents with impairments in balance, gait, independence in exercise, overall function, and safety. Patient did not complete the PROMIS? (Patient Reported Outcome Measures Information System). Prognosis for therapy is Fair due to: clinical presentation, chronic nature of impairments, learning impairments . She will benefit from skilled therapy services to meet the goals established for this plan of care as noted below. Goals for Episode of Care: created on 05/27/23 through 08/25/23 Patient will perform sit to stand transfers with modified independence and improving safety with normal speed. Patient will ambulate with Ustep walker with stand by assist with minimal cues for proper use of device. Patient demonstrates independent and proper use of assistive device to allow for improved walking quality and safety therefore reducing the risk of falls. Patient will complete 10 reps on 30 second chair stand test to decrease risk of falls. Pt will verbalize decrease fall frequency from daily Patient Goals: Be more stable Planned Interventions, Frequency, and Duration: Current Frequency: 1x/week Duration: 8 weeks Total Number of Visits Planned: 8 Planned Treatment Interventions: Therapeutic exercise (20148), Neuromuscular re-education (54470), Manual therapy (53033), Therapeutic activities (14110), Self-nursing home management (44714), Gait Training (09005), Patient/Family/Caregiver Education PLAN FOR NEXT VISIT: PROMIS if able. Safety training. Work on standing and moving from chair to chair, turning to sit, navigating obstacles, in/out of doorways, reaching with device. Focus on slow gait and staying in bounds of rollator. Limit traditional ther ex/strengthening etc if able. Patient demonstrates good understanding of plan of care and treatment. The above goals and plan of care were discussed and agreed upon by patient/family. For further details regarding this patient refer to the Physical Therapy electronically documented visit dated 05/27/2023. Provider Attestation I have reviewed the treatment plan for Ramos Jacinta Padron, [facility]# [id number] for the period of 05/27/23 -- 08/25/23, established on 05/27/2023. Signature certifies the need for therapy services. [facility] CNTHERAPYon 05-27-2023 CNTHERAPY OT/PT/Speech Visit (PTMDRG) -- RAMOS PADRON ([id number]) 1945 F [place] Date Time Provider Department 05/27/23 10:45 AM JESENIA JAMES PTMAISHWARYA Date Time Provider Department Center 05/27/2023 10:45 AM [id number] JAMES PTMAISHWARYA [facility] Reason for Visit: PT Eval [747] Patient Education [91] Primary Visit Diagnosis:Imbalance [R26.89] Other Visit Diagnoses:PSP (progressive supranuclear palsy) (HCC) [G23.1] Abnormality of gait [R26.9] Falls frequently [R29.6] Allergies As of Date: 05/27/2023 (No Known Allergies) Date Reviewed: 05/15/2023 Reviewed by: Juliet Chanel MD - Fully Assessed Prescriptions as of 05/27/2023 - acetaminophen 650 mg CR tablet 1,300 mg. - carbidopa-levodopa (SINEMET) 25-100 mg per tablet take 2 AND 1/2 tablets by mouth three times a day - Cholecalciferol, Vitamin D3, 50 mcg (2,000 unit) cap Take by mouth as directed. - ibuprofen (MOTRIN) 200 mg tablet Take 200 mg by mouth every 6 hours as needed. - rosuvastatin (CRESTOR) 10 mg tablet Take 1 tablet by mouth once daily. -- Normal [facility] No Panel Informationon 03-06 CA 125 Antigen 9.1 U/mL 0.0-38.1 [facility] Comment on above: [employer] El ectrochemiluminescence Immunoassay(ECLIA)Values obtained with different assay methods or kits cannotbe used interchangeably. Results cannot be interpreted asabsolute evidence of the presence or absence of malignantdisease.Performed at: [address] [id number] Director: Kash Silva PhD, Phone: [phone] Absolute lymphocyte countOrd ered By: Dmitry Burk on 09-12-2022 Lymphocytes Auto (Unsp spec) [#/Vol] 3.40 10*3/uL 0.83-4.51 [facility] Basophil percentageOrdered B y: Dmitry Burk on 09-12-2022 Basophils/100 WBC (Bld) 0.5 % 0-1 [facility] Bilirubin [Mass/Vol] 0.30 mg/dL 0.20-1.00 [facility] Comment on above: For patients on eltr ombopag therapy, use of Dimension [place] TBIL is not recommended. Chloride [Moles/Vol] 108 mmol/L 98-107 [facility] Eosinophils/100 WBC (Bld) 1.4 % 0-5 [facility] Glucose [Mass/Vol] 92 mg/dL 74-106 [facility] Neutrophils (Bld) [#/Vol] 3.6 10*3/uL 2.0-7.7 [facility] Neutrophils/100 WBC (Bld) 46.1 % 47-70 [facility] Potassium [Moles/Vol] 3.9 mmol/L 3.5-5.1 [facility] Protein [Mass/Vol] 7.6 g/dL 6.4-8.2 [facility] Sodium [Moles/Vol] 140 mmol/L 136-145 [facility] WBC (Bld) [#/Vol] 7.9 10*3/uL 4.4-11.0 [facility] Blood erythrocytes count (nu mber/volume)Ordered By: Dmitry Burk on 09-12-2022 RBC (Bld) [#/Vol] 5.01 10*6/uL 4.2-5.4 [facility] Blood hemoglobin measurement (mass/volume)Ordered By: Dmitry Burk on 09-12-2022 Hemoglobin (Bld) [Mass/Vol] 15.1 g/dL 12.0-15.0 [facility] Blood lymphocytes/100 leukoc ytesOrdered By: Dmitry Burk on 09-12-2022 Lymphocytes/100 WBC (Bld) 43.2 % 19-41 [facility] Blood monocytes/100 leukocyt esOrdered By: Dmitry Burk on 09-12-2022 Monocytes/100 WBC (Bld) 8.5 % 0-10 [facility] Blood platelet mean volumeOr dered By: Dmitry Burk on 09-12-2022 Platelet mean volume (Bld) [Entitic vol] 10.0 fL 6.2-12.0 [facility] Determination of erythrocyte mean corpuscular volume (MCV)Ordered By: Dmitry Burk on 09-12-2022 MCV (RBC) [Entitic vol] 94.8 fL 81-99 [facility] Hematocrit Auto (Bld) [Volum e fraction]Ordered By: Dmitry Burk on 09-12-2022 Hematocrit (Bld) [Volume fraction] 47.5 % 37-47 [facility] Laboratory - Chemistry and C hemistry - challengeOrdered By: Dmitry Burk on 09-12-2022 ALP [Catalytic activity/Vol] 75 U/L 45-117 [facility] ALT [Catalytic activity/Vol] 9 U/L 13-56 [facility] CO2 [Moles/Vol] 26.0 mmol/L 21.0-32.0 [facility] Globulin (S) [Mass/Vol] 4.2 g/dL 2.2-4.2 [facility] Urea nitrogen/Creatinine [Mass ratio] 16.3 mg/mg 10-20 [facility] - Hematology and Cell countsOrdered By: Dmitry Burk on 09-12-2022 Erythrocyte distribution width (RBC) [Entitic vol] 44.7 fL 35.1-43.9 [facility] Erythrocyte distribution width (RBC) [Ratio] 13.0 % 11.6-14.6 [facility] Immature granulocytes/100 WBC (Bld) 0.300 % 0.0-0.9 [facility] Comment on above: IG% - Immature Granu locytes (promyelocytes, myelocytes and metamyelocytes) > 1% indicates that a LEFT SHIFT is Present. MCH (RBC) [Entitic mass] 30.1 pg 27.0-32.0 [facility] Nucleated RBC/100 WBC (Bld) [Ratio] 0 % 0-5 [facility] MCHC Auto (RBC) [Mass/Vol]Or dered By: Dmitry Burk on 09-12-2022 MCHC (RBC) [Mass/Vol] 31.8 g/dL 32-36 [facility] No Panel InformationOrdered By: Dmitry Burk on 09-12-2022 Estimated GFR (MDRD) Amer 90 mL/min >60 [facility] Comment on above: GFR Calc Estimated GFR (MDRD) Non-Af Amer 74 mL/min >60 [facility] Comment on above: Non- GFR Calc Thyroid Stimulating Hormone (TSH) 1.63 uIU/mL 0.358-3.74 [facility] Vitamin D 25-Hydroxy 68.5 ng/mL [facility] Comment on above: Vitamin D 25(OH) Sta tus Range Deficiency <20 ng/mL (50nmol/L) Insufficiency 20 - 30 ng/mL (50 - 75 nmol/L) Sufficiency 30 - 100 ng/mL (75 - 250 nmol/L) Toxicity >100 ng/mL (>250 nmol/L) Platelets bldOrdered By: Aline Burk on 09-12-2022 Platelets (Bld) [#/Vol] 329 10*3/uL 150-450 [facility] Serum or plasma albumin anat urement (mass/volume)Ordered By: Dmitry Burk on 09-12-2022 Albumin [Mass/Vol] 3.4 g/dL 3.2-5.0 [facility] Serum or plasma albumin/glob ulin mass ratioOrdered By: [facility] on 09-12-2022 Albumin/Globulin [Mass ratio] 0.8 {ratio} 0.9-2.4 [facility] Serum or plasma calcium anat urement (mass/volume)Ordered By: [facility] on 09-12-2022 Calcium [Mass/Vol] 9.3 mg/dL 8.5-10.1 [facility] Serum or plasma creatinine m easurement (mass/volume)Ordered By: [facility] on 09-12-2022 Creatinine [Mass/Vol] 0.80 mg/dL 0.55-1.02 [facility] Comment on above: The validity of the calculated GFR & GFRAA in patients over 70 years has not been determined. Clinical correlation is essential. Serum or plasma urea nitroge n measurement (mass/volume)Ordered By: [facility] on 09-12-2022 Urea nitrogen [Mass/Vol] 13 mg/dL 7-18 [facility] Thin prep Papanicolaou smear with manual screeningOrdered By: [facility] on 09-12-2022 Thin prep Papanicolaou smear with manual screening 12 U/L 15-37 [facility] Thin prep Papanicolaou smear with manual screening 6 5-15 [facility] No Panel InformationOrdered By: Juliet Mohamud on 08-20-2022 Vitamin D 25-Hydroxy 79.2 ng/mL [facility] Comment on above: Vitamin D 25(OH) Sta tus Range Deficiency <20 ng/mL (50nmol/L) Insufficiency 20 - 30 ng/mL (50 - 75 nmol/L) Sufficiency 30 - 100 ng/mL (75 - 250 nmol/L) Toxicity >100 ng/mL (>250 nmol/L) No Panel Informationon 08-08 CA 125 Antigen 10.6 U/mL 0.0-38.1 [facility] Comment on above: [employer] El ectrochemiluminescence Immunoassay(ECLIA)Values obtained with different assay methods or kits cannotbe used interchangeably. Results cannot be interpreted asabsolute evidence of the presence or absence of malignantdisease.Performed at: [facility] [id number] Director: Kash Silva PhD, Phone: [phone] Absolute lymphocyte countOrd ered By: Juliet Amadornger on 07-24-2022 Lymphocytes Auto (Unsp spec) [#/Vol] 3.01 10*3/uL 0.83-4.51 [facility] Basophil percentageOrdered B y: Juliet Cade on 07-24-2022 Basophils/100 WBC (Bld) 0.6 % 0-1 [facility] Bilirubin [Mass/Vol] 0.50 mg/dL 0.20-1.00 [facility] Comment on above: For patients on eltr ombopag therapy, use of Dimension [place] TBIL is not recommended. Chloride [Moles/Vol] 106 mmol/L 98-107 [facility] Cholesterol [Mass/Vol] 203 mg/dL <200 [facility] Comment on above: <200 mg/dL Desirable 200-240 mg/dL Borderline >240 mg/dL High Risk Eosinophils/100 WBC (Bld) 0.9 % 0-5 [facility] Glucose [Mass/Vol] 92 mg/dL 74-106 [facility] Neutrophils (Bld) [#/Vol] 4.3 10*3/uL 2.0-7.7 [facility] Neutrophils/100 WBC (Bld) 52.9 % 47-70 [facility] Potassium [Moles/Vol] 4.0 mmol/L 3.5-5.1 [facility] Comment on above: Slight Hemolysis, Re sult may be falsely increased. Protein [Mass/Vol] 7.8 g/dL 6.4-8.2 [facility] Sodium [Moles/Vol] 138 mmol/L 136-145 [facility] Triglyceride [Mass/Vol] 197 mg/dL <199 [facility] Comment on above: The drugs N-Acetylcy steine and Metamizole may falsely depress this assay.Serum Triglycerides Reference Interval Normal <150 mg/dL Borderline high 150 - 199 mg/dL High 200 - 499 mg/dL Very High > or = 500 mg/dL WBC (Bld) [#/Vol] 8.2 10*3/uL 4.4-11.0 [facility] Blood erythrocytes count (nu mber/volume)Ordered By: Juliet Mohamud on 07-24-2022 RBC (Bld) [#/Vol] 5.02 10*6/uL 4.2-5.4 [facility] Blood hemoglobin measurement (mass/volume)Ordered By: Juliet Mohamud on 07-24-2022 Hemoglobin (Bld) [Mass/Vol] 15.6 g/dL 12.0-15.0 [facility] Blood lymphocytes/100 leukoc ytesOrdered By: Juliet Mohamud on 07-24-2022 Lymphocytes/100 WBC (Bld) 36.7 % 19-41 [facility] Blood monocytes/100 leukocyt esOrdered By: Juliet Mohamud on 07-24-2022 Monocytes/100 WBC (Bld) 8.5 % 0-10 [facility] Blood platelet mean volumeOr dered By: Juliet Mohamud on 07-24-2022 Platelet mean volume (Bld) [Entitic vol] 9.9 fL 6.2-12.0 [facility] Determination of erythrocyte mean corpuscular volume (MCV)Ordered By: Juliet Mohamud on 07-24-2022 MCV (RBC) [Entitic vol] 94.2 fL 81-99 [facility] Hematocrit Auto (Bld) [Volum e fraction]Ordered By: Juliet Mohamud on 07-24-2022 Hematocrit (Bld) [Volume fraction] 47.3 % 37-47 [facility] - Chemistry and C hemistry - challengeOrdered By: Juliet Mohamud on 07-24-2022 ALP [Catalytic activity/Vol] 74 U/L 45-117 [facility] ALT [Catalytic activity/Vol] 18 U/L 13-56 [facility] CO2 [Moles/Vol] 27.0 mmol/L 21.0-32.0 [facility] Cobalamin (Vitamin B12) [Mass/Vol] 513 pg/mL [phone] [facility] Globulin (S) [Mass/Vol] 4.1 g/dL 2.2-4.2 [facility] Urea nitrogen/Creatinine [Mass ratio] 18.8 mg/mg 10-20 [facility] - Hematology and Cell countsOrdered By: Juliet Mohamud on 07-24-2022 Erythrocyte distribution width (RBC) [Entitic vol] 45.8 fL 35.1-43.9 [facility] Erythrocyte distribution width (RBC) [Ratio] 13.2 % 11.6-14.6 [facility] Immature granulocytes/100 WBC (Bld) 0.400 % 0.0-0.9 [facility] Comment on above: IG% - Immature Granu locytes (promyelocytes, myelocytes and metamyelocytes) > 1% indicates that a LEFT SHIFT is Present. MCH (RBC) [Entitic mass] 31.1 pg 27.0-32.0 [facility] Nucleated RBC/100 WBC (Bld) [Ratio] 0 % 0-5 [facility] MCHC Auto (RBC) [Mass/Vol]Or dered By: Juliet Mohamud on 07-24-2022 MCHC (RBC) [Mass/Vol] 33.0 g/dL 32-36 [facility] No Panel InformationOrdered By: Juliet Mohamud on 07-24-2022 Estimated GFR (MDRD) Amer 83 mL/min >60 [facility] Comment on above: GFR Calc Estimated GFR (MDRD) Non-Af Amer 69 mL/min >60 [facility] Comment on above: Non- GFR Calc Thyroid Stimulating Hormone (TSH) 1.23 uIU/mL 0.358-3.74 [facility] Platelets bldOrdered By: Con Mohamud on 07-24-2022 Platelets (Bld) [#/Vol] 338 10*3/uL 150-450 [facility] Serum or plasma albumin anat urement (mass/volume)Ordered By: Juliet Mohamud on 07-24-2022 Albumin [Mass/Vol] 3.7 g/dL 3.2-5.0 [facility] Serum or plasma albumin/glob ulin mass ratioOrdered By: Juliet Mohamud on 07-24-2022 Albumin/Globulin [Mass ratio] 0.9 {ratio} 0.9-2.4 [facility] Serum or plasma calcium anat urement (mass/volume)Ordered By: Juliet Mohamud on 07-24-2022 Calcium [Mass/Vol] 9.4 mg/dL 8.5-10.1 [facility] Serum or plasma cholesterol in HDL measurement (mass/volume)Ordered By: Juliet Mohamud on 07-24-2022 Cholesterol in HDL [Mass/Vol] 64 mg/dL >40 [facility] Comment on above: The drugs N-Acetylcy steine and Metamizole may falsely depress this assay. Reference Range HDL <40 mg/dL Low HDL Cholesterol HDL >or= 60 mg/dL High HDL Cholesterol Serum or plasma cholesterol in VLDL measurement (mass/volume)Ordered By: Juliet Mohamud on 07-24-2022 Cholesterol in VLDL [Mass/Vol] 39 mg/dL 5-40 [facility] Serum or plasma creatinine m easurement (mass/volume)Ordered By: Juliet Mohamud on 07-24-2022 Creatinine [Mass/Vol] 0.85 mg/dL 0.55-1.02 [facility] Comment on above: The validity of the calculated GFR & GFRAA in patients over 70 years has not been determined. Clinical correlation is essential. Serum or plasma low density lipoprotein (LDL) cholesterol measurement (mass/volume)Ordered By: Juleit Mohamud on 07-24-2022 Cholesterol in LDL [Mass/Vol] 100 mg/dL 0-130 [facility] Serum or plasma urea nitroge n measurement (mass/volume)Ordered By: Juliet Mohamud on 07-24-2022 Urea nitrogen [Mass/Vol] 16 mg/dL 7-18 [facility] Thin prep Papanicolaou smear with manual screeningOrdered By: Juliet Mohamud on 07-24-2022 Thin prep Papanicolaou smear with manual screening 14 U/L 15-37 [facility] Comment on above: Slight Hemolysis, Re sult may be falsely increased. Thin prep Papanicolaou smear with manual screening 5 5-15 [facility] No Panel InformationOrdered By: Dr. Munoz on 02-06-2022 CA 125 Antigen 11.4 U/mL 0.0-38.1 [facility] Comment on above: [employer] El ectrochemiluminescence Immunoassay(ECLIA)Values obtained with different assay methods or kits cannotbe used interchangeably. Results cannot be interpreted asabsolute evidence of the presence or absence of malignantdisease.Performed at: [address] [id number] Director: Kash Silva PhD, Phone: [phone] CT HEAD OR BRAIN W/O CONTRAS Ton 12-14-2021 CT HEAD OR BRAIN W/O CONTRAST ORIGINAL EXAMINATION: CT HEAD TECHNIQUE: Axial CT images from skull base to vertex without IV contrast. This exam was performed according to our departmental dose optimization program, and includes the following measures where applicable: automated exposure control, adjustment of the mAs and/or kVp according to patient size and/or exam, and an iterative reconstruction algorithm. COMPARISON: CT head 11/22/2021 HISTORY: ORDERING SYSTEM PROVIDED HISTORY: Reason for Exam: Right SDH brain bleed injury 3 wks ago no current complaints FINDINGS: Parenchyma: No acute intracranial hemorrhage, midline shift, mass effect or acute ischemic infarct is demonstrated. The finnegan-white matter junctions are preserved. No space occupying intra-axial masses or extra-axial fluid collections are seen. The previously seen right temporal hyperdense subdural hematoma is no longer conspicuous. Mild parenchymal volume loss is noted. Scattered areas of decreased attenuation are identified in the subcortical, periventricular, and deep white matter reflecting mild chronic microvascular white matter ischemic disease. Ventricles: No evidence of hydrocephalus or ventricular effacement. The ventricles and sulci are proportionate in size. Vessels: No significant atherosclerotic calcifications. Atherosclerotic calcifications of the bilateral internal carotid arteries. Orbits: Unremarkable. Calvarium: Unremarkable. Paranasal sinuses: Clear. Mastoid sinuses: Clear. IMPRESSION: 1. Resolved right subdural hematoma 2. No acute intracranial pathology. Interpreted by: Romeo Fu MD Preliminary Report By: Romeo Fu MD Electronically signed By Romeo Fu MD Dictated Date: 12/14/2021 12:13:15 PM Prelim Date: 12/14/2021 12:16:31 PM Sign Date: 12/14/2021 12:16:31 PM Ordering Provider: JHON Tillman [facility] ([place]) Absolute lymphocyte countOrd ered By: Dr. Pollard on 11-30-2021 Lymphocytes Auto (Unsp spec) [#/Vol] 3.44 10*3/uL 0.83-4.51 [facility] Basophil percentageOrdered B y: Dr. Pollard on 11-30-2021 Basophils/100 WBC (Bld) 0.4 % 0-1 [facility] Chloride [Moles/Vol] 109 mmol/L 98-107 [facility] Eosinophils/100 WBC (Bld) 1.3 % 0-5 [facility] Glucose [Mass/Vol] 96 mg/dL 74-106 [facility] Neutrophils (Bld) [#/Vol] 5.1 10*3/uL 2.0-7.7 [facility] Neutrophils/100 WBC (Bld) 54.2 % 47-70 [facility] Potassium [Moles/Vol] 3.6 mmol/L 3.5-5.1 [facility] Sodium [Moles/Vol] 141 mmol/L 136-145 [facility] WBC (Bld) [#/Vol] 9.3 10*3/uL 4.4-11.0 [facility] Blood erythrocytes count (nu mber/volume)Ordered By: Dr. Pollard on 11-30-2021 RBC (Bld) [#/Vol] 4.48 10*6/uL 4.2-5.4 [facility] Blood hemoglobin measurement (mass/volume)Ordered By: Dr. Pollard on 11-30-2021 Hemoglobin (Bld) [Mass/Vol] 13.8 g/dL 12.0-15.0 [facility] Blood lymphocytes/100 leukoc ytesOrdered By: Dr. Pollard on 11-30-2021 Lymphocytes/100 WBC (Bld) 36.8 % 19-41 [facility] Blood monocytes/100 leukocyt esOrdered By: Dr. Pollard on 11-30-2021 Monocytes/100 WBC (Bld) 6.6 % 0-10 [facility] Blood platelet mean volumeOr dered By: Dr. Pollard on 11-30-2021 Platelet mean volume (Bld) [Entitic vol] 9.0 fL 6.2-12.0 [facility] COVID-19 virus antigen assay Ordered By: Dr. Pollard on 11-30-2021 SARS-CoV-2 (COVID-19) Ag IA.rapid Ql (Resp) [facility] Determination of erythrocyte mean corpuscular volume (MCV)Ordered By: Dr. Pollard on 11-30-2021 MCV (RBC) [Entitic vol] 92.2 fL 81-99 [facility] Hematocrit Auto (Bld) [Volum e fraction]Ordered By: Dr. Pollard on 11-30-2021 Hematocrit (Bld) [Volume fraction] 41.3 % 37-47 [facility] - Chemistry and C hemistry - challengeOrdered By: Dr. Pollard on 11-30-2021 CO2 [Moles/Vol] 25.0 mmol/L 21.0-32.0 [facility] Urea nitrogen/Creatinine [Mass ratio] 19.3 mg/mg 10-20 [facility] - Hematology and Cell countsOrdered By: Dr. Pollard on 11-30-2021 Erythrocyte distribution width (RBC) [Entitic vol] 44.9 fL 35.1-43.9 [facility] Erythrocyte distribution width (RBC) [Ratio] 13.2 % 11.6-14.6 [facility] Immature granulocytes/100 WBC (Bld) 0.700 % 0.0-0.9 [facility] Comment on above: IG% - Immature Granu locytes (promyelocytes, myelocytes and metamyelocytes) > 1% indicates that a LEFT SHIFT is Present. MCH (RBC) [Entitic mass] 30.8 pg 27.0-32.0 [facility] Nucleated RBC/100 WBC (Bld) [Ratio] 0 % 0-5 [facility] MCHC Auto (RBC) [Mass/Vol]Or dered By: Dr. Pollard on 11-30-2021 MCHC (RBC) [Mass/Vol] 33.4 g/dL 32-36 [facility] No Panel InformationOrdered By: Dr. Pollard on 11-30-2021 Estimated Creatinine Clearance Calc 45.61 ml/min [facility] Estimated GFR (MDRD) Amer 86 mL/min >60 [facility] Comment on above: GFR Calc Estimated GFR (MDRD) Non-Af Amer 71 mL/min >60 [facility] Comment on above: Non- GFR Calc Platelets bldOrdered By: Dr. Pollard on 11-30-2021 Platelets (Bld) [#/Vol] 311 10*3/uL 150-450 [facility] Serum or plasma calcium anat urement (mass/volume)Ordered By: Dr. Pollard on 11-30-2021 Calcium [Mass/Vol] 8.6 mg/dL 8.5-10.1 [facility] Serum or plasma creatinine m easurement (mass/volume)Ordered By: Dr. Pollard on 11-30-2021 Creatinine [Mass/Vol] 0.83 mg/dL 0.55-1.02 [facility] Comment on above: The validity of the calculated GFR & GFRAA in patients over 70 years has not been determined. Clinical correlation is essential. Serum or plasma urea nitroge n measurement (mass/volume)Ordered By: Dr. Pollard on 11-30-2021 Urea nitrogen [Mass/Vol] 16 mg/dL 7-18 [facility] Thin prep Papanicolaou smear with manual screeningOrdered By: Dr. Pollard on 11-30-2021 Thin prep Papanicolaou smear with manual screening 7 5-15 [facility] .Auto Diffon 11-22-2021 Basophil, Absolute 0.1 10 3/mcL Normal 0.0-0.3 [facility] ([place]) Comment on above: Performed By: #### Lula FOY, BMP ####[address] [address] Basophils/100 WBC (Bld) 0.7 % Normal 0.0-2.5 [facility] ([place]) Comment on above: Performed By: #### Lula FOY, BMP ####[address] [address] Eosinophil, Absolute 0.0 10 3/mcL Normal 0.0-0.7 [facility] ([place]) Comment on above: Performed By: #### G , BMP ####[address] [address] Eosinophils/100 WBC (Bld) 0.0 % Normal 0.0-6.0 [facility] ([place]) Comment on above: Performed By: #### G , BMP ####[address] [address] Lymphocyte, Absolute 1.3 10 3/mcL Normal 0.9-4.3 [facility] ([place]) Comment on above: Performed By: #### Lula FOY, BMP ####[address] [address] Lymphocytes/100 WBC (Bld) 11.3 % Low 20.0-40.0 [facility] [place] Comment on above: Performed By: #### Lula FOY, BMP ####[address] [address] Monocyte, Absolute 0.7 10 3/mcL Normal 0.1-1.4 [facility] ([place]) Comment on above: Performed By: #### Lula FOY, BMP ####[address] [address] Monocytes/100 WBC (Bld) 6.5 % Normal 2.0-13.0 [facility] [place] Comment on above: Performed By: #### Lula FOY, BMP ####[address] [address] Neutrophils/100 WBC (Bld) 81.5 % High 50.0-75.0 [facility] [place] Comment on above: Performed By: #### Lula FOY, BMP ####[address] [address] .GFRon 11-22-2021 GFR >60 Normal [facility] ([place]) Comment on above: Result Comment: GFR Population mean for , Non- Americans Ages 20-29 = 116 mL/min/1.73 sq.m. Ages 30-39 = 107 mL/min/1.73 sq.m. Ages 40-49 = 99 mL/min/1.73 sq.m. Ages 50-59 = 93 mL/min/1.73 sq.m. Ages 60-69 = 85 mL/min/1.73 sq.m. Ages 70+ = 75 mL/min/1.73 sq.m. Chronic Kidney Disease: Less than 60 mL/min/1.73 square meters End Stage Renal Disease: Less than 15 mL/min/1.73 square meters Performed By: #### Lula FOY, BMP ####[address] [address] GFR Non- >60 Normal [facility] ([place] Comment on above: Result Comment: GFR Population mean for , Non- Americans Ages 20-29 = 116 mL/min/1.73 sq.m. Ages 30-39 = 107 mL/min/1.73 sq.m. Ages 40-49 = 99 mL/min/1.73 sq.m. Ages 50-59 = 93 mL/min/1.73 sq.m. Ages 60-69 = 85 mL/min/1.73 sq.m. Ages 70+ = 75 mL/min/1.73 sq.m. Chronic Kidney Disease: Less than 60 mL/min/1.73 square meters End Stage Renal Disease: Less than 15 mL/min/1.73 square meters Performed By: #### Lula FOY, BMP ####[address] [address] .NEUABSon 11-22-2021 Neutrophil, Absolute 9.1 10 3/mcL High 2.3-8.1 [facility] ([place]) Comment on above: Performed By: #### Lula FOY, BMP ####[address] [address] BMPon 11-22-2021 BUN/Creatinine Ratio 28.2 ratio High 10.0-22.0 [facility] ([place]) Comment on above: Performed By: #### Lula FOY, BMP ####[address] [address] Calcium [Mass/Vol] 9.1 mg/dL Normal 8.7-10.4 [facility] ([place]) Comment on above: Performed By: #### Lula FOY, BMP ####[address] [address] Chloride [Moles/Vol] 108 mmol/L Normal 98-110 [facility] ([place] Comment on above: Performed By: #### Lual FOY, BMP ####[address] [address] CO2 [Moles/Vol] 21 mmol/L Low 22-32 [facility] [place] Comment on above: Performed By: #### Lula FOY, BMP ####[place] [address] Creatinine [Mass/Vol] 0.78 mg/dL Normal 0.50-1.20 [facility] ([place]) Comment on above: Performed By: #### Lula FOY, BMP ####[place] [address] Electrolyte Balance 13.0 mEq/L Normal 4.0-15.0 [facility] ([place]) Comment on above: Performed By: #### Lula FOY, BMP ####[place] [address] Glucose [Mass/Vol] 103 mg/dL Normal 82-115 [facility] ([place]) Comment on above: Performed By: #### Lula FOY, BMP ####[place] [address] Potassium [Moles/Vol] 3.8 mmol/L Normal 3.5-5.0 [facility] ([place] Comment on above: Performed By: #### Lula FOY, BMP ####[place] [address] Sodium [Moles/Vol] 142 mmol/L Normal 136-145 [facility] ([place]) Comment on above: Performed By: #### Lula FOY, BMP ####[place] [address] Urea nitrogen [Mass/Vol] 22.0 mg/dL Normal 8.0-22.0 [facility] [place] Comment on above: Performed By: #### Lula FOY, BMP ####[place] [address] CBCon 11-22-2021 Erythrocyte distribution width (RBC) [Ratio] 14.0 % Normal 11.5-15.5 [facility] [place] Comment on above: Performed By: #### Lula FOY, BMP ####[place] [address] Hematocrit (Bld) [Volume fraction] 43.8 % Normal 34.0-46.0 [facility] [place] Comment on above: Performed By: #### Lula FOY, BMP ####[place] [address] Hgb 14.7 G/dL Normal 12.0-16.0 [facility] [place] Comment on above: Performed By: #### Lula FOY, BMP ####[place] [address] MCH (RBC) [Entitic mass] 30.7 pg Normal 27.0-33.0 [facility] [place] Comment on above: Performed By: #### Lula FOY, BMP ####[place] [address] MCHC 33.6 G/dL Normal 32.0-36.0 [facility] [place] Comment on above: Performed By: #### Lula FOY, BMP ####[place] [address] MCV (RBC) [Entitic vol] 91.5 fL Normal 80.0-99.0 [facility] [place] Comment on above: Performed By: #### Lula FOY, BMP ####[place] [address] Platelet 261 10 3/mcL Normal 150-450 [facility] [place] Comment on above: Performed By: #### Lula FOY, BMP ####[place] [address] Platelet mean volume (Bld) [Entitic vol] 7.2 fL Normal 6.6-10.5 [facility] [place] Comment on above: Performed By: #### Lula FOY, BMP ####[place] [address] RBC 4.79 10 6/mcL Normal 4.10-5.30 [facility] [place] Comment on above: Performed By: #### Lula FOY, BMP ####[place] [address] WBC 11.2 10 3/mcL High 4.5-10.8 [facility] [place] Comment on above: Performed By: #### Lula FOY, BMP ####[place] [address] CT HEAD OR BRAIN W/O CONTRAS Ton 11-22-2021 CT HEAD OR BRAIN W/O CONTRAST ORIGINAL EXAMINATION: CT OF THE HEAD WITHOUT [...] Right SDH Patient is a transfer from [facility], no complaints of pain FINDINGS: Hyperdense subdural [...] the resident's findings and interpretation. Interpreted by: Pedro Siegel MD Preliminary Report By: Molly Cortez Electronically signed By Pedro Siegel MD Dictated Date: 11/22/2021 5:11:12 AM Prelim Date: 11/22/2021 5:20:50 AM Sign Date: 11/22/2021 5:30:05 AM Ordering Provider: KIAN HEMPHILL [facility]) CVFLURVocarlie 11-22-2021 Date of Onset [id number] Invalid Interpretation Code [facility] [place] Comment on above: Performed By: #### C VFLURV ####[place] [address] Employed in Healthcare No Normal [facility] ([place]) Comment on above: Performed By: #### C VFLURV ####[place] [address] First Test Unknown [facility] ([place] Comment on above: Performed By: #### C VFLURV ####[place] [address] FLU A PCR Negative Normal Negative [facility] [place] Comment on above: Result Comment: [place] s [id number] Performed By: #### C VFLURV ####[place] [address] FLU B PCR Negative Normal Negative [facility] [place] Comment on above: Result Comment: [place] s [id number] Performed By: #### C VFLURV ####[place] [address] Hospitalized Yes [facility] ([place] Comment on above: Performed By: #### C VFLURV ####[place] [address] ICU No [facility] ([place] Comment on above: Performed By: #### C VFLURV ####[place] [address] Not [facility] ([place] Comment on above: Performed By: #### C VFLURV ####[place] [address] Resides in Congregate Care Setting No [facility] ([place] Comment on above: Performed By: #### C VFLURV ####[place] [address] RSV PCR Negative Normal Negative [facility] [place] Comment on above: Result Comment: [place] [id number] Performed By: #### C VFLURV ####[place] [address] SARS-CoV-2 (COVID-19) RNA HAMZAH+probe Ql (Unsp spec) Negative Normal Negative [facility] [place] Comment on above: Result Comment: Note s [id number] This test has been authorized by FDA under an EUA for use by authorized laboratories and has not been FDA cleared or approved. Results from the Xpert Xpress SARS-CoV-2/Flu/RSV or Xpert Xpress SARS-CoV-2 only test should be correlated with the clinical history, epidemiological data, and other data available to the clinician evaluating the patient. Performance of the Xpert Xpress SARS-CoV-2/Flu/RSV or Xpert Xpress SARS-CoV-2 only test has only been established in nasopharyngeal swab specimens. Erroneous test results might occur from improper specimen collection; failure to follow the recommended sample collection, handling, and storage procedures; technical error; or sample mix-up.False negative results may occur if virus is present at levels below the analytical limit of detection. Viral nucleic acid may persist in vivo, independent of virus viability. Detection of analyte target(s) does not imply that the corresponding virus(es) are infectious or are the causative agents for clinical symptoms.Recent patient exposure to FluMist or other live attenuated influenza vaccines may cause inaccurate positive results. Performed By: #### C VFLURV ####[place] [address] Symptomatic as Defined by CDC No Normal [facility] ([place] Comment on above: Performed By: #### C VFLURV ####[place] [address] LABORATORYOrdered By: Seda Contreras on 11-22-2021 Date of Onset [id number] Invalid Interpretation Code AH Auto Viro/Sero SS Employed in Healthcare No (11/22/21 11:21 AM) Invalid Interpretation Code AH Auto Viro/Sero SS First Test Unknown (11/22/21 11:21 AM) Invalid Interpretation Code Auto Viro/Sero SS FLUAV RNA HAMZAH+probe Ql (Resp) Negative 4 (11/22/21 11:21 AM) Invalid Interpretation Code Negative AH Auto Viro/Sero SS Comment on above: Result Comment: [place] [id number] FLUBV RNA HAMZAH+probe Ql (Resp) Negative 5 (11/22/21 11:21 AM) Invalid Interpretation Code Negative AH Auto Viro/Sero SS Comment on above: Result Comment: [place] [id number] Hospitalized Yes (11/22/21 11:21 AM) Invalid Interpretation Code AH Auto Viro/Sero SS ICU No (11/22/21 11:21 AM) Invalid Interpretation Code AH Auto Viro/Sero SS Not (11/22/21 11:21 AM) Invalid Interpretation Code AH Auto Viro/Sero SS Resides in Congregate Care Setting No (11/22/21 11:21 AM) Invalid Interpretation Code AH Auto Viro/Sero SS RSV PCR Negative 6 (11/22/21 11:21 AM) Invalid Interpretation Code Negative AH Auto Viro/Sero SS Comment on above: Result Comment: [place] [id number] SARS-CoV-2 (COVID-19) RNA HAMZAH+probe Ql (Resp) Negative 3 (11/22/21 11:21 AM) Invalid Interpretation Code Negative AH Auto Viro/Sero SS Comment on above: Result Comment: [place] s [id number] Symptomatic as Defined by CDC No (11/22/21 11:21 AM) Invalid Interpretation Code AH Auto Viro/Sero SS LABORATORYOrdered By: SYSTEM SYSTEM on 11-22-2021 Basophils (Bld) [#/Vol] 0.1 103/mcL Invalid Interpretation Code 0.0 - 0.3 10^3/mcL Workflow SS Basophils/100 WBC (Bld) 0.7 % Invalid Interpretation Code 0.0 - 2.5 % Workflow SS Calcium [Mass/Vol] 9.1 mg/dL Invalid Interpretation Code 8.7 - 10.4 mg/dL ADM SS Chloride [Moles/Vol] 108 mmol/L Invalid Interpretation Code 98 - 110 mEq/L ADM SS CO2 [Moles/Vol] 21 mmol/L Invalid Interpretation Code 22 - 32 mEq/L ADM SS Creatinine [Mass/Vol] 0.78 mg/dL Invalid Interpretation Code 0.50 - 1.20 mg/dL ADM SS Electrolyte Balance 13.0 mEq/L Invalid Interpretation Code 4.0 - 15.0 mEq/L ADM SS Eosinophils (Bld) [#/Vol] 0.0 103/mcL Invalid Interpretation Code 0.0 - 0.7 10^3/mcL Workflow SS Eosinophils/100 WBC (Bld) 0.0 % Invalid Interpretation Code 0.0 - 6.0 % Workflow SS Erythrocyte distribution width (RBC) [Ratio] 14.0 % Invalid Interpretation Code 11.5 - 15.5 % Workflow SS GFR/1.73 sq M.predicted among blacks MDRD (S/P/Bld) [Vol rate/Area] ml/min/1.73sqm Invalid Interpretation Code Chemistry S GFR/1.73 sq M.predicted among non-blacks MDRD (S/P/Bld) [Vol rate/Area] ml/min/1.73sqm Invalid Interpretation Code Chemistry S Glucose [Mass/Vol] 103 mg/dL Invalid Interpretation Code 82 - 115 mg/dL ADM SS Hematocrit (Bld) [Volume fraction] 43.8 % Invalid Interpretation Code 34.0 - 46.0 % AH Workflow SS Hemoglobin (Bld) [Mass/Vol] 14.7 G/dL Invalid Interpretation Code 12.0 - 16.0 G/dL AH Workflow SS Lymphocytes (Bld) [#/Vol] 1.3 103/mcL Invalid Interpretation Code 0.9 - 4.3 10^3/mcL AH Workflow SS Lymphocytes/100 WBC (Bld) 11.3 % Invalid Interpretation Code 20.0 - 40.0 % AH Workflow SS MCH (RBC) [Entitic mass] 30.7 pg Invalid Interpretation Code 27.0 - 33.0 pg AH Workflow SS MCHC 33.6 G/dL Invalid Interpretation Code 32.0 - 36.0 G/dL AH Workflow SS MCV (RBC) [Entitic vol] 91.5 fL Invalid Interpretation Code 80.0 - 99.0 fL AH Workflow SS Monocytes (Bld) [#/Vol] 0.7 103/mcL Invalid Interpretation Code 0.1 - 1.4 10^3/mcL AH Workflow SS Monocytes/100 WBC (Bld) 6.5 % Invalid Interpretation Code 2.0 - 13.0 % AH Workflow SS Neutrophils (Bld) [#/Vol] 9.1 103/mcL Invalid Interpretation Code 2.3 - 8.1 10^3/mcL AH Workflow SS Neutrophils/100 WBC (Bld) 81.5 % Invalid Interpretation Code 50.0 - 75.0 % AH Workflow SS Platelet mean volume (Bld) [Entitic vol] 7.2 fL Invalid Interpretation Code 6.6 - 10.5 fL AH Workflow SS Platelets (Bld) [#/Vol] 261 103/mcL Invalid Interpretation Code 150 - 450 10^3/mcL AH Workflow SS Potassium [Moles/Vol] 3.8 mmol/L Invalid Interpretation Code 3.5 - 5.0 mEq/L ADM SS RBC (Bld) [#/Vol] 4.79 106/mcL Invalid Interpretation Code 4.10 - 5.30 10^6/mcL AH Workflow SS Sodium [Moles/Vol] 142 mmol/L Invalid Interpretation Code 136 - 145 mEq/L AH ADM SS Urea nitrogen [Mass/Vol] 22.0 mg/dL Invalid Interpretation Code 8.0 - 22.0 mg/dL AH ADM SS Urea nitrogen/Creatinine [Mass ratio] 28.2 ratio Invalid Interpretation Code 10.0 - 22.0 ratio AH ADM SS WBC (Bld) [#/Vol] 11.2 103/mcL Invalid Interpretation Code 4.5 - 10.8 10^3/mcL Workflow SS .Auto Diffon 11-21-2021 Basophil, Absolute 0.1 10 3/mcL Normal 0.0-0.3 [facility] ([place]) Comment on above: Performed By: #### G FR, BMP, ABSGEL, ALC, ABOGEL, PRO, APTT #### [address] [address] Basophils/100 WBC (Bld) 0.5 % Normal 0.0-2.5 [facility] ([place]) Comment on above: Performed By: #### G FR, BMP, ABSGEL, ALC, ABOGEL, PRO, APTT #### [address] [address] Eosinophil, Absolute 0.0 10 3/mcL Normal 0.0-0.7 [facility] ([place]) Comment on above: Performed By: #### G FR, BMP, ABSGEL, ALC, ABOGEL, PRO, APTT #### [address] [address] Eosinophils/100 WBC (Bld) 0.1 % Normal 0.0-6.0 [facility] ([place]) Comment on above: Performed By: #### G FR, BMP, ABSGEL, ALC, ABOGEL, PRO, APTT #### [address] [address] Lymphocyte, Absolute 2.5 10 3/mcL Normal 0.9-4.3 [facility] ([place]) Comment on above: Performed By: #### G FR, BMP, ABSGEL, ALC, ABOGEL, PRO, APTT #### [address] [address] Lymphocytes/100 WBC (Bld) 18.0 % Low 20.0-40.0 [facility] ([place]) Comment on above: Performed By: #### G FR, BMP, ABSGEL, ALC, ABOGEL, PRO, APTT #### [address] [address] Monocyte, Absolute 1.1 10 3/mcL Normal 0.1-1.4 [facility] ([place]) Comment on above: Performed By: #### G FR, BMP, ABSGEL, ALC, ABOGEL, PRO, APTT #### [address] [address] Monocytes/100 WBC (Bld) 7.5 % Normal 2.0-13.0 [facility] ([place]) Comment on above: Performed By: #### G FR, BMP, ABSGEL, ALC, ABOGEL, PRO, APTT #### [address] [address] Neutrophils/100 WBC (Bld) 73.9 % Normal 50.0-75.0 [facility] ([place]) Comment on above: Performed By: #### G FR, BMP, ABSGEL, ALC, ABOGEL, PRO, APTT #### [address] [address] .GFRon 11-21-2021 GFR >60 Normal [facility] ([place]) Comment on above: Result Comment: GFR Population mean for , Non- Americans Ages 20-29 = 116 mL/min/1.73 sq.m. Ages 30-39 = 107 mL/min/1.73 sq.m. Ages 40-49 = 99 mL/min/1.73 sq.m. Ages 50-59 = 93 mL/min/1.73 sq.m. Ages 60-69 = 85 mL/min/1.73 sq.m. Ages 70+ = 75 mL/min/1.73 sq.m. Chronic Kidney Disease: Less than 60 mL/min/1.73 square meters End Stage Renal Disease: Less than 15 mL/min/1.73 square meters Performed By: #### G FR, BMP, ABSGEL, ALC, ABOGEL, PRO, APTT ####[address] [address] GFR Non- >60 Normal [facility] ([place]) Comment on above: Result Comment: GFR Population mean for , Non- Americans Ages 20-29 = 116 mL/min/1.73 sq.m. Ages 30-39 = 107 mL/min/1.73 sq.m. Ages 40-49 = 99 mL/min/1.73 sq.m. Ages 50-59 = 93 mL/min/1.73 sq.m. Ages 60-69 = 85 mL/min/1.73 sq.m. Ages 70+ = 75 mL/min/1.73 sq.m. Chronic Kidney Disease: Less than 60 mL/min/1.73 square meters End Stage Renal Disease: Less than 15 mL/min/1.73 square meters Performed By: #### G FR, BMP, ABSGEL, ALC, ABOGEL, PRO, APTT ####[address] [address] .MDWon 11-21-2021 Monocyte Distribution Width 16.41 Normal 0.00-20.00 [facility] ([place]) Comment on above: Result Comment: For ED adult patients suspected of sepsis, MDW<=20.0 does not rule out sepsis or risk of sepsis Performed By: #### G FR, BMP, ABSGEL, ALC, ABOGEL, PRO, APTT #### [address] [address] .NEUABSon 11-21-2021 Neutrophil, Absolute 10.4 10 3/mcL High 2.3-8.1 [facility] ([place]) Comment on above: Performed By: #### G FR, BMP, ABSGEL, ALC, ABOGEL, PRO, APTT #### [address] [address] ABO/Rh (Gel)on 11-21-2021 ABO/Rh Interp Positive Invalid Interpretation Code [facility] ([place]) Comment on above: Performed By: #### G FR, BMP, ABSGEL, ALC, ABOGEL, PRO, APTT ####[address] [address] ABS (Gel)on 11-21-2021 ABSC Interp (Gel) Negative Normal [facility] ([place]) Comment on above: Performed By: #### G FR, BMP, ABSGEL, ALC, ABOGEL, PRO, APTT ####[address] [address] Bebo 11-21-2021 Ethanol Level <10.0 Normal [facility] ([place]) Comment on above: Performed By: #### G FR, BMP, ABSGEL, ALC, ABOGEL, PRO, APTT #### [address] [address] APTTon 11-21-2021 aPTT Coag (Bld) [Time] 25.1 s Normal 25.0-35.0 [facility] ([place]) Comment on above: Result Comment: For Heparin anticoagulation therapy, the recommended therapeutic range is: 54-77 seconds (APTT Correlation with Anti-Xa therapeutic range of 0.3-0.7 units/ml). PLEASE REFERENCE THE PHARMACY PROTOCOL FOR DOSING. Performed By: #### G FR, BMP, ABSGEL, ALC, ABOGEL, PRO, APTT #### [address] [address] Heparin dose (APTT) Unknown Normal [facility] ([place]) Comment on above: Performed By: #### G FR, BMP, ABSGEL, ALC, ABOGEL, PRO, APTT #### [address] [address] BMP 11-21-2021 BUN/Creatinine Ratio 19.7 ratio Normal 10.0-22.0 [facility] ([place]) Comment on above: Performed By: #### G FR, BMP, ABSGEL, ALC, ABOGEL, PRO, APTT #### [address] [address] Calcium [Mass/Vol] 9.5 mg/dL Normal 8.7-10.4 [facility] ([place]) Comment on above: Performed By: #### G FR, BMP, ABSGEL, ALC, ABOGEL, PRO, APTT #### [address] [address] Chloride [Moles/Vol] 107 mmol/L Normal 98-110 [facility] ([place]) Comment on above: Performed By: #### G FR, BMP, ABSGEL, ALC, ABOGEL, PRO, APTT #### [address] [address] CO2 [Moles/Vol] 29 mmol/L Normal 22-32 [facility] ([place]) Comment on above: Performed By: #### G FR, BMP, ABSGEL, ALC, ABOGEL, PRO, APTT #### [place] [id number] Creatinine [Mass/Vol] 0.76 mg/dL Normal 0.50-1.20 [facility] ([place]) Comment on above: Performed By: #### G FR, BMP, ABSGEL, ALC, ABOGEL, PRO, APTT #### [place] [address] Electrolyte Balance 5.0 mEq/L Normal 4.0-15.0 [facility] ([place]) Comment on above: Performed By: #### G FR, BMP, ABSGEL, ALC, ABOGEL, PRO, APTT #### [place] [address] Glucose [Mass/Vol] 87 mg/dL Normal 82-115 [facility] ([place]) Comment on above: Performed By: #### G FR, BMP, ABSGEL, ALC, ABOGEL, PRO, APTT #### [place] [id number] Potassium [Moles/Vol] 3.6 mmol/L Normal 3.5-5.0 [facility] ([place]) Comment on above: Result Comment: Spec imen slightly hemolyzed. Performed By: #### G FR, BMP, ABSGEL, ALC, ABOGEL, PRO, APTT #### [place] [phone] Sodium [Moles/Vol] 141 mmol/L Normal 136-145 [facility] ([place]) Comment on above: Performed By: #### G FR, BMP, ABSGEL, ALC, ABOGEL, PRO, APTT #### [address] [address] Urea nitrogen [Mass/Vol] 15.0 mg/dL Normal 8.0-22.0 [facility] ([place]) Comment on above: Performed By: #### G FR, BMP, ABSGEL, ALC, ABOGEL, PRO, APTT #### [place] [address] CBCon 11-21-2021 Erythrocyte distribution width (RBC) [Ratio] 13.6 % Normal 11.5-15.5 [facility] ([place]) Comment on above: Performed By: #### G FR, BMP, ABSGEL, ALC, ABOGEL, PRO, APTT #### [place] [address] Hematocrit (Bld) [Volume fraction] 46.9 % High 34.0-46.0 [facility] ([place]) Comment on above: Performed By: #### G FR, BMP, ABSGEL, ALC, ABOGEL, PRO, APTT #### [place] [address] Hgb 15.6 G/dL Normal 12.0-16.0 [facility] ([place]) Comment on above: Performed By: #### G FR, BMP, ABSGEL, ALC, ABOGEL, PRO, APTT #### [place] [address] MCH (RBC) [Entitic mass] 30.6 pg Normal 27.0-33.0 [facility] ([place]) Comment on above: Performed By: #### G FR, BMP, ABSGEL, ALC, ABOGEL, PRO, APTT #### [place] [address] MCHC 33.2 G/dL Normal 32.0-36.0 [facility] ([place]) Comment on above: Performed By: #### G FR, BMP, ABSGEL, ALC, ABOGEL, PRO, APTT #### [place] [address] MCV (RBC) [Entitic vol] 92.1 fL Normal 80.0-99.0 [facility] ([place]) Comment on above: Performed By: #### G FR, BMP, ABSGEL, ALC, ABOGEL, PRO, APTT #### [address] [address] Platelet 300 10 3/mcL Normal 150-450 [facility] ([place]) Comment on above: Performed By: #### G FR, BMP, ABSGEL, ALC, ABOGEL, PRO, APTT #### [address] [address] Platelet mean volume (Bld) [Entitic vol] 7.1 fL Normal 6.6-10.5 [facility] ([place]) Comment on above: Performed By: #### G FR, BMP, ABSGEL, ALC, ABOGEL, PRO, APTT #### [address] [address] RBC 5.09 10 6/mcL Normal 4.10-5.30 [facility] ([place]) Comment on above: Performed By: #### G FR, BMP, ABSGEL, ALC, ABOGEL, PRO, APTT #### [address] [address] WBC 14.1 10 3/mcL High 4.5-10.8 [facility] ([place]) Comment on above: Performed By: #### G FR, BMP, ABSGEL, ALC, ABOGEL, PRO, APTT #### [address] [address] LABORATORYOrdered By: Argenis Cloud on 11-21-2021 ABO and Rh group Nom (Bld) Blood group A Rh(D) positive Invalid Interpretation Code BB Auto SS Blood group antibody screen Ql NEG (11/21/21 1:25 PM) Invalid Interpretation Code AH BB Auto SS LABORATORYOrdered By: Karissa Rubio on 11-21-2021 aPTT Coag (PPP) [Time] 25.1 s Invalid Interpretation Code 25.0 - 35.0 seconds AH Auto Coag SS Heparin dose (APTT) Unknown (11/21/21 1:25 PM) Invalid Interpretation Code AH Auto Coag SS INR Coag (PPP) [Relative time] 0.9 {INR} Invalid Interpretation Code AH Auto Coag SS PT Coag (PPP) [Time] 10.7 s Invalid Interpretation Code 9.0 - 14.9 seconds AH Auto Coag SS LABORATORYOrdered By: SYSTEM SYSTEM on 11-21-2021 Basophils (Bld) [#/Vol] 0.1 103/mcL Invalid Interpretation Code 0.0 - 0.3 10^3/mcL Workflow SS Basophils/100 WBC (Bld) 0.5 % Invalid Interpretation Code 0.0 - 2.5 % Workflow SS Calcium [Mass/Vol] 9.5 mg/dL Invalid Interpretation Code 8.7 - 10.4 mg/dL ADM SS Chloride [Moles/Vol] 107 mmol/L Invalid Interpretation Code 98 - 110 mEq/L ADM SS CO2 [Moles/Vol] 29 mmol/L Invalid Interpretation Code 22 - 32 mEq/L ADM SS Creatinine [Mass/Vol] 0.76 mg/dL Invalid Interpretation Code 0.50 - 1.20 mg/dL ADM SS Electrolyte Balance 5.0 mEq/L Invalid Interpretation Code 4.0 - 15.0 mEq/L ADM SS Eosinophils (Bld) [#/Vol] 0.0 103/mcL Invalid Interpretation Code 0.0 - 0.7 10^3/mcL Workflow SS Eosinophils/100 WBC (Bld) 0.1 % Invalid Interpretation Code 0.0 - 6.0 % Workflow SS Erythrocyte distribution width (RBC) [Ratio] 13.6 % Invalid Interpretation Code 11.5 - 15.5 % Workflow SS Ethanol [Mass/Vol] mg/dL Invalid Interpretation Code ADM SS GFR/1.73 sq M.predicted among blacks MDRD (S/P/Bld) [Vol rate/Area] ml/min/1.73sqm Invalid Interpretation Code ADM SS GFR/1.73 sq M.predicted among non-blacks MDRD (S/P/Bld) [Vol rate/Area] ml/min/1.73sqm Invalid Interpretation Code ADM SS Glucose [Mass/Vol] 87 mg/dL Invalid Interpretation Code 82 - 115 mg/dL ADM SS Hematocrit (Bld) [Volume fraction] 46.9 % Invalid Interpretation Code 34.0 - 46.0 % Workflow SS Hemoglobin (Bld) [Mass/Vol] 15.6 G/dL Invalid Interpretation Code 12.0 - 16.0 G/dL Workflow SS Lymphocytes (Bld) [#/Vol] 2.5 103/mcL Invalid Interpretation Code 0.9 - 4.3 10^3/mcL AH Workflow SS Lymphocytes/100 WBC (Bld) 18.0 % Invalid Interpretation Code 20.0 - 40.0 % AH Workflow SS MCH (RBC) [Entitic mass] 30.6 pg Invalid Interpretation Code 27.0 - 33.0 pg AH Workflow SS MCHC 33.2 G/dL Invalid Interpretation Code 32.0 - 36.0 G/dL AH Workflow SS MCV (RBC) [Entitic vol] 92.1 fL Invalid Interpretation Code 80.0 - 99.0 fL AH Workflow SS Monocyte distribution width Auto (Bld) [Entitic vol] 16.41 Invalid Interpretation Code 0.00 - 20.00 AH Workflow SS Comment on above: Result Comment: For ED adult patients suspected of sepsis, MDW<=20.0 does not rule out sepsis or risk of sepsis Monocytes (Bld) [#/Vol] 1.1 103/mcL Invalid Interpretation Code 0.1 - 1.4 10^3/mcL AH Workflow SS Monocytes/100 WBC (Bld) 7.5 % Invalid Interpretation Code 2.0 - 13.0 % AH Workflow SS Neutrophils (Bld) [#/Vol] 10.4 103/mcL Invalid Interpretation Code 2.3 - 8.1 10^3/mcL AH Workflow SS Neutrophils/100 WBC (Bld) 73.9 % Invalid Interpretation Code 50.0 - 75.0 % AH Workflow SS Platelet mean volume (Bld) [Entitic vol] 7.1 fL Invalid Interpretation Code 6.6 - 10.5 fL AH Workflow SS Platelets (Bld) [#/Vol] 300 103/mcL Invalid Interpretation Code 150 - 450 10^3/mcL AH Workflow SS Potassium [Moles/Vol] 3.6 mmol/L Invalid Interpretation Code 3.5 - 5.0 mEq/L ADM SS Comment on above: Result Comment: Spec imen slightly hemolyzed. RBC (Bld) [#/Vol] 5.09 106/mcL Invalid Interpretation Code 4.10 - 5.30 10^6/mcL AH Workflow SS Sodium [Moles/Vol] 141 mmol/L Invalid Interpretation Code 136 - 145 mEq/L ADM SS Urea nitrogen [Mass/Vol] 15.0 mg/dL Invalid Interpretation Code 8.0 - 22.0 mg/dL AH ADM SS Urea nitrogen/Creatinine [Mass ratio] 19.7 ratio Invalid Interpretation Code 10.0 - 22.0 ratio AH ADM SS WBC (Bld) [#/Vol] 14.1 103/mcL Invalid Interpretation Code 4.5 - 10.8 10^3/mcL AH Workflow SS PROon 11-21-2021 INR Coag (PPP) [Relative time] 0.9 {INR} Normal [facility] ([place]) Comment on above: Result Comment: The [employer] (CHEST, 1992, 102:312S-25S) recommended therapeutic range for oral anticoagulant therapy is: LOW RISK: Prophylaxis of venous thrombosis INR: 2.0-3.0 Treatment of pulmonary embolism 2.0-3.0 Prevention of systemic embolism 2.0-3.0 HIGH RISK: Mechanical prosthetic valves 2.5-3.5 Performed By: #### G FR, BMP, ABSGEL, ALC, ABOGEL, PRO, APTT #### [address] [address] PT Coag (PPP) [Time] 10.7 s Normal 9.0-14.9 [facility] ([place]) Comment on above: Result Comment: Effe ctive 09/16/07, Protime results may be affected by some antibiotics (i.e. Ciprofloxacin, Azithromycin, Bactrim) which may potentiate the action of oral anticoagulants, with further increases in Protime/INR. Performed By: #### G FR, BMP, ABSGEL, ALC, ABOGEL, PRO, APTT #### [address] [address] XR HIP MINIMUM 2 VIEWS RIGHT on 11-21-2021 XR HIP MINIMUM 2 VIEWS RIGHT ORIGINAL EXAMINATION: TWO XRAY VIEWS OF THE [...] 11/21/2021 9:18:02 PM Ordering Provider: KIAN HEMPHILL [facility] ([place]) Basophil percentageon 2021 Creatinine [Mass/Vol] 1.0 mg/dL 0.55-1.02 [facility] Work Phone: Bilirubin [Mass/Vol] 0.60 mg/dL 0.20-1.00 [facility] Work Phone: Comment on above: For patients on eltr ombopag therapy, use of Dimension [place] TBIL is not recommended. Chloride [Moles/Vol] 103 mmol/L 98-107 [facility] Work Phone: Glucose [Mass/Vol] 90 mg/dL 74-106 [facility] Work Phone: Potassium [Moles/Vol] 3.9 mmol/L 3.5-5.1 [facility] Work Phone: Protein [Mass/Vol] 7.6 g/dL 6.4-8.2 [facility] Work Phone: Sodium [Moles/Vol] 136 mmol/L 136-145 [facility] Work Phone: WBC (Bld) [#/Vol] 11.6 10*3/uL 4.4-11.0 [facility] Work Phone: Blood erythrocytes count (nu mber/volume)on 11-16-2021 RBC (Bld) [#/Vol] 5.21 10*6/uL 4.2-5.4 [facility] Work Phone: Blood hemoglobin measurement (mass/volume)on 11-16-2021 Hemoglobin (Bld) [Mass/Vol] 16.3 g/dL 12.0-15.0 [facility] Work Phone: Blood platelet mean volumeon 11-16-2021 Platelet mean volume (Bld) [Entitic vol] 9.1 fL 6.2-12.0 [facility] Work Phone: Determination of erythrocyte mean corpuscular volume (MCV)on 11-16-2021 MCV (RBC) [Entitic vol] 94.2 fL 81-99 [facility] Work Phone: Hematocrit Auto (Bld) [Volum e fraction]on 11-16-2021 Hematocrit (Bld) [Volume fraction] 49.1 % 37-47 [facility] Work Phone: Laboratory - Chemistry and C hemistry - challengeon 11-16-2021 GFR/1.73 sq M.predicted among non-blacks MDRD (S/P/Bld) [Vol rate/Area] 57.0000 mL/min/{1.73_m2} >60 [facility] Work Phone: ALP [Catalytic activity/Vol] 70 U/L 45-117 [facility] Work Phone: ALT [Catalytic activity/Vol] 13 U/L 13-56 [facility] Work Phone: CO2 [Moles/Vol] 26.0 mmol/L 21.0-32.0 [facility] Work Phone: Cobalamin (Vitamin B12) [Mass/Vol] 559 pg/mL 211-911 [facility] Work Phone: Globulin (S) [Mass/Vol] 4.0 g/dL 2.2-4.2 [facility] Work Phone: Urea nitrogen/Creatinine [Mass ratio] 19.4 mg/mg 10-20 [facility] Work Phone: Laboratory - Hematology and Cell countson 11-16-2021 Erythrocyte distribution width (RBC) [Entitic vol] 46.0 fL 35.1-43.9 [facility] Work Phone: Erythrocyte distribution width (RBC) [Ratio] 13.3 % 11.6-14.6 [facility] Work Phone: MCH (RBC) [Entitic mass] 31.3 pg 27.0-32.0 [facility] Work Phone: MCHC Auto (RBC) [Mass/Vol]on 11-16-2021 MCHC (RBC) [Mass/Vol] 33.2 g/dL 32-36 [facility] Work Phone: No Panel Informationon 11-16 Estimated GFR (MDRD) Amer 63 mL/min >60 [facility] Work Phone: Comment on above: GFR Calc Estimated GFR (MDRD) Non-Af Amer 52 mL/min >60 [facility] Work Phone: Comment on above: Non- GFR Calc Free Lambda Light Chains, Quant 14.6 mg/L 5.7-26.3 [facility] Work Phone: Thyroid Stimulating Hormone (TSH) 1.00 uIU/mL 0.358-3.74 [facility] Work Phone: Whole Blood Vitamin B1 Level 198.6 nmol/L 66.5-200.0 [facility] Work Phone: Comment on above: Performed at: - [facility] [employer] [address] [id number] Director: Kash Silva PhD, Phone: [phone] at: [facility] [id number] Director: Julita Pereira MD, Phone: [phone] Platelets bldon 11-16-2021 Platelets (Bld) [#/Vol] 361 10*3/uL 150-450 [facility] Work Phone: Serum immunoglobulin kappa l ight chains/immunoglobulin lambda light chains mass ratioon 11-16-2021 Immunoglobulin light chains.kappa/Immunoglo bulin light chains.lambda (S) [Mass ratio] 1.22 0.26-1.65 [facility] Work Phone: Serum or plasma albumin anat urement (mass/volume)on 11-16-2021 Albumin [Mass/Vol] 3.6 g/dL 3.2-5.0 [facility] Work Phone: Serum or plasma albumin/glob ulin mass ratioon 11-16-2021 Albumin/Globulin [Mass ratio] 0.9 {ratio} 0.9-2.4 [facility] Work Phone: Serum or plasma calcium anat urement (mass/volume)on 11-16-2021 Calcium [Mass/Vol] 9.3 mg/dL 8.5-10.1 [facility] Work Phone: Serum or plasma creatinine m easurement (mass/volume)on 11-16-2021 Creatinine [Mass/Vol] 1.08 mg/dL 0.55-1.02 [facility] Work Phone: Comment on above: The validity of the calculated GFR & GFRAA in patients over 70 years has not been determined. Clinical correlation is essential. Serum or plasma folate measu rement (mass/volume)on 11-16-2021 Folate [Mass/Vol] 15.40 ng/mL 3.1-55.4 [facility] Work Phone: Serum or plasma immunoglobul in kappa light chains measurement (mass/volume)on 11-16-2021 Immunoglobulin light chains.kappa [Mass/Vol] 17.8 mg/L 3.3-19.4 [facility] Work Phone: Serum or plasma urea nitroge n measurement (mass/volume)on 11-16-2021 Urea nitrogen [Mass/Vol] 21 mg/dL 7-18 [facility] Work Phone: Thin prep Papanicolaou smear with manual screeningon 11-16-2021 Thin prep Papanicolaou smear with manual screening 9 U/L 15-37 [facility] Work Phone: Thin prep Papanicolaou smear with manual screening 7 5-15 [facility] Work Phone: No Panel Informationon 08-11 CA 125 Antigen 13.5 U/mL 0.0-38.1 [facility] Work Phone: Comment on above: [employer] El ectrochemiluminescence Immunoassay(ECLIA)Values obtained with different assay methods or kits cannotbe used interchangeably. Results cannot be interpreted asabsolute evidence of the presence or absence of malignantdisease.Performed at: [facility] [id number] Director: Kash Silva PhD, Phone: [phone] CT Abdomen and Pelvis W cont rast IVOrdered By: Ryne Munoz on 08-15-2020 Patient Name: RAMOS LY Computed Tomography ACCESSION EXAM DATE/TIME PROCEDURE ORDERING PROVIDER [id number] 08/15/2020 10:[address] Abdomen/Pelvis w/ IV RYNE MUNOZ Contrast (IV Onl CPT code 15951 Q9967 Reason For Exam (CT Abdomen/Pelvis w/ IV Contrast (IV Onl) endometrial ca Report Indication: Personal history of metastatic endometrial carcinoma. CT examination of the abdomen and pelvis with intravenous and oral contrast. 75 mL of Isovue-370 contrast agent utilized. Images of the lung bases show mild dependent atelectasis. No infiltrates or pleural effusions. No pulmonary nodules. Diffuse fatty infiltration of the liver parenchyma noted. No focal liver lesions. The gallbladder, spleen, pancreas and adrenal glands are within normal limits. Normal size kidneys. No hydronephrosis or ureteral dilatation. 1.2 cm inferior right renal cortical cyst is stable. 1 cm medial left renal cortical cyst is stable. Additional Low-density lesions in the left kidney are too small to characterize although similar in size. No perirenal fluid collections or perirenal edema. No retroperitoneal or mesenteric adenopathy. No large or small bowel dilatation. Normal caliber of the appendix. Mild sigmoid diverticulosis without findings to indicate acute diverticulitis. Images the of pelvis show a well-distended urinary bladder. Uterus is absent. No free fluid. No adnexal masses. Beam hardening artifact from the left hip prosthesis limits visualization of portions of the left hemipelvis. Small bilateral renal cortical cysts are stable. IMPRESSION: No evidence of an acute intra-abdominal or intrapelvic process. No adenopathy or evidence of recurrence of malignancy. Fatty infiltration of the liver parenchyma noted. Computed Tomography Report Report Dictated on --- Final --- Dictated: 08/15/2020 10:54 am Dictating Physician: MD LIZARRAGA LAURA Signed Date and Time: 08/15/2020 10:59 am Signed by: MD LIZARRAGA LAURA Transcribed Date and Time: 08/15/2020 10:54 [facility] Work Phone: Enrico, Alexandreaa Incoming Radiology Results From [facility] - 08/15/2020 11:00 AM EDT [id number] Tomography ACCESSION EXAM DATE/TIME PROCEDURE ORDERING PROVIDER [id number] 08/15/2020 10:[address] Abdomen/Pelvis w/ IV RYNE MUNOZ Contrast (IV Onl CPT code 21299 Q9967 Reason For Exam (CT Abdomen/Pelvis w/ IV Contrast (IV Onl) endometrial ca Report Indication: Personal history of metastatic endometrial carcinoma. CT examination of the abdomen and pelvis with intravenous and oral contrast. 75 mL of Isovue-370 contrast agent utilized. Images of the lung bases show mild dependent atelectasis. No infiltrates or pleural effusions. No pulmonary nodules. Diffuse fatty infiltration of the liver parenchyma noted. No focal liver lesions. The gallbladder, spleen, pancreas and adrenal glands are within normal limits. Normal size kidneys. No hydronephrosis or ureteral dilatation. 1.2 cm inferior right renal cortical cyst is stable. 1 cm medial left renal cortical cyst is stable. Additional Low-density lesions in the left kidney are too small to characterize although similar in size. No perirenal fluid collections or perirenal edema. No retroperitoneal or mesenteric adenopathy. No large or small bowel dilatation. Normal caliber of the appendix. Mild sigmoid diverticulosis without findings to indicate acute diverticulitis. Images the of pelvis show a well-distended urinary bladder. Uterus is absent. No free fluid. No adnexal masses. Beam hardening artifact from the left hip prosthesis limits visualization of portions of the left hemipelvis. Small bilateral renal cortical cysts are stable. IMPRESSION: No evidence of an acute intra-abdominal or intrapelvic process. No adenopathy or evidence of recurrence of malignancy. Fatty infiltration of the liver parenchyma noted. Computed Tomography Report Report Dictated on --- Final --- Dictated: 08/15/2020 10:54 am Dictating Physician: MD LIZARRAGA LAURA Signed Date and Time: 08/15/2020 10:59 am Signed by: MD LIZARRAGA LAURA Transcribed Date and Time: 08/15/2020 10:54 [facility] Work Phone: [facility] Work Phone: CT Abdomen/Pelvis w/ Contras ton 08-15-2020 CT Abdomen/Pelvis w/ Contrast Patient Name: RAMOS PADRON [facility]#: [id number] Computed Tomography ACCESSION EXAM DATE/TIME PROCEDURE ORDERING PROVIDER [id number] 08/15/2020 10:[address] Abdomen/Pelvis w/ IV ALEXANDER RYNE Contrast (IV Onl CPT code 61717 [id number] Reason For Exam (CT Abdomen/Pelvis w/ IV Contrast (IV Onl) endometrial ca Report Indication: Personal history of metastatic endometrial carcinoma. CT examination of the abdomen and pelvis with intravenous and oral contrast. 75 mL of Isovue-370 contrast agent utilized. Images of the lung bases show mild dependent atelectasis. No infiltrates or pleural effusions. No pulmonary nodules. Diffuse fatty infiltration of the liver parenchyma noted. No focal liver lesions. The gallbladder, spleen, pancreas and adrenal glands are within normal limits. Normal size kidneys. No hydronephrosis or ureteral dilatation. 1.2 cm inferior right renal cortical cyst is stable. 1 cm medial left renal cortical cyst is stable. Additional Low-density lesions in the left kidney are too small to characterize although similar in size. No perirenal fluid collections or perirenal edema. No retroperitoneal or mesenteric adenopathy. No large or small bowel dilatation. Normal caliber of the appendix. Mild sigmoid diverticulosis without findings to indicate acute diverticulitis. Images the of pelvis show a well-distended urinary bladder. Uterus is absent. No free fluid. No adnexal masses. Beam hardening artifact from the left hip prosthesis limits visualization of portions of the left hemipelvis. Small bilateral renal cortical cysts are stable. IMPRESSION: No evidence of an acute intra-abdominal or intrapelvic process. No adenopathy or evidence of recurrence of malignancy. Fatty infiltration of the liver parenchyma noted. Computed Tomography Report Report Dictated on Final Dictated: 08/15/2020 10:54 am Dictating Physician: MD LIZARRAGA LAURA Signed Date and Time: 08/15/2020 10:59 am Signed by: MD LIZARRAGA LAURA Transcribed Date and Time: 08/15/2020 10:54 Normal [facility] HLA B27 AGon 05-25-2020 HLA B27 RESULT Negative Normal () [facility] Comment on above: Result Comment: HLA- B*27 Negative B27 allele interpretation for all loci based on IMGT/HLA database version 3.38 This test was developed and its performance characteristics determined by [facility]. It has not been cleared or approved by the Food and Drug Administration. [facility] Lab CLIA ID Number [id number] This test was performed using PCR (Polymerase Chain Reaction)/SSOP (Sequence Specific Oligonucleotide Probes) technique. SBT (Sequence Based Typing) and/or SSP (Sequence Specific Primers) may be used as supplemental methods when necessary. Please contact HLA Customer Service at if you have any questions. Director of HLA Laboratory Dr Berlin Danielle, PhD Performed At: [facility] [address] [place], [place] [id number] Lolis Corona PhD [id number] Performed By: #### L 750.22828 #### [facility] [address] [place] [address] ANAon 05-23-2020 Nuclear Ab IF (S) [Titer] Positive High () [facility] Comment on above: Result Comment: Nega tive <1:80 Borderline 1:80 Positive >1:80 Performed By: #### L 700.30133, L700.76526 #### [facility] [address] [place] [address] Nuclear Ab IF (S) [Titer] 1:80 Normal () [facility] Comment on above: Performed By: #### L 700.86211, L700.27445 #### [facility] [address] [place] [address] Nuclear Ab IF (S) [Titer] Normal [facility] Comment on above: Result Comment: A po sitive MARY result may occur in healthy individuals (low titer) or be associated with a variety of diseases. See interpretation chart which is not all inclusive: Pattern Antigen Detected Suggested Disease Association Homogeneous DNA(ds,ss), SLE - High titers Nucleosomes, Histones Drug-induced SLE Speckled Sm, COFFEE TASTER, SCL-70, SLE,MCTD,PSS (diffuse form), SS-A/SS-B Sjogrens Nucleolar SCL-70, PM-1/SCL High titers Scleroderma, PM/DM Centromere Centromere PSS (limited form) w/Crest syndrome variable Nuclear Dot [id number] Primary Biliary Cirrhosis Nuclear GP210, Primary Biliary Cirrhosis Membrane francis A,B,C Performed At: [facility] [address] [place], [place] [id number] Randall Cancino MD [id number] Performed At: [facility] [address] [id number] Ricardo Hewitt PhD [id number] Performed By: #### L 700.68547, L700.14936 #### [facility] [address] CCP-ABSon 05-23-2020 [facility]ABS 9 units [facility] 0[facility] Comment on above: Result Comment: Nega tive <20 Weak positive 20 - 39 Moderate positive 40 - 59 Strong positive >59 Performed By: #### L 700.74528, L700.31257 #### [email or web address] [address] [place] [address] MRI Lumbar Spine wo contrast on 12-13-2016 MRI Lumbar Spine wo contrast CLINICAL INFORMATION: Chronic lower back pain radiating into left groin.MRI lumbar spine:Sagittal and axial T1 and turbo spin-echo T2 and sagittal T2-weighted inversionrecovery images are obtained. There are no lumbar spine radiographs forcorrelation. This interpretation assumes the presence of five lumbar typevertebral bodies.There is no intrinsic signal or structural abnormality of the distal spinalcord, conus medullaris or cauda equina. The conus terminates at approximatelythe L1-2 level. There is disc desiccation at all levels with intervertebral discnarrowing at multiple levels most prominent at 45 followed by L5-S1. There ismild retrolisthesis of L5 on S1 (3 mm). There is a generally capacious lumbarspinal canal. There is a large hemangioma in the right side of the T12 vertebralbody. Except for mild degenerative endplate changes most prominent at L4-5,there are no areas of significant abnormal bone marrow signal intensity.T11-12: Small disc protrusion indenting the ventral aspect of the thecal sacwithout abutting, flattening or deflecting the spinal cord on sagittal imagesonly. No axial images at this level. No definite thecal sac narrowing. Theneural foramina are poorly visualized but may be mildly narrowed.T12-L1: Disc bulge or small broad protrusion mildly flattening the ventralaspect of the thecal sac with minimal thecal sac narrowing. No neural foraminalnarrowing.L1-L2: Disc bulge or small broad protrusion mildly flattening the ventral aspectsac with minimal thecal sac narrowing. Mild bilateral neural foraminalnarrowing.L2-L3: No disc bulge or protrusion.L3-L4: Disc bulge mildly flattening the ventral aspect of the thecal sac withoutthecal sac narrowing. Mild ligamentum flavum and facet hypertrophy with moderateleft and no right neural foraminal narrowing.L4-L5: Small broad disc protrusion mildly flattening the ventral aspect of thethecal sac without thecal sac narrowing. Moderate facet hypertrophy with severeright and moderate left neural foraminal narrowing.L5-S1: Broad disc protrusion associated with the mild retrolisthesis minimallyabutting but not narrowing the elemental tapering thecal sac. No S1 nerve rootdisplacement. Extension of protrusion into the neural foramina with mild tomoderate right and at least moderate to severe left neural foraminal narrowingin combination with mild to moderate facet hypertrophy.Impression:1. Multilevel degenerative disc disease most prominent at L4-5.2. Broad L5-S1 disc protrusion associated with mild retrolisthesis withoutthecal sac narrowing or S1 nerve root displacement.3. Variable degrees of neural foraminal narrowing on both sides at multiplelevels as detailed above.4. See above comments for detailed description of findings.Report Dictated on Workstation: [id number] by: Tiara Almanza: 12/13/2016 19:33Read by: Heather CELESTIN: 12/13/2016 19:35 [facility] Comment on above: Order Comment: CONTR AST PER RADIOLOGIST DISCRETION COVID-19 virus antigen assay SARS-CoV-2 (COVID-19) Ag IA.rapid Ql (Resp) [facility] Work Phone: Vital Signs Date Time Vital Sign Value Performing Clinician Facility 12-17-2024 12:29-0400 Body temperature 98.3 [degF] Dmitry Burk MD Work Phone: [facility] 12-17-2024 12:29-0400 Diastolic blood pressure 67 mm[Hg] Dmitry Burk MD Work Phone: [facility] 12-17-2024 12:29-0400 Heart rate 71 /min Dmitry Burk MD Work Phone: [facility] 12-17-2024 12:29-0400 Respiratory rate 16 /min Dmitry Burk MD Work Phone: [facility] 12-17-2024 12:29-0400 SaO2% (BldA) [Mass fraction] 99 % Dmitry Burk MD Work Phone: [facility] 12-17-2024 12:29-0400 Systolic blood pressure 127 mm[Hg] Dmitry Burk MD Work Phone: [facility] 12-17-2024 09:29-0400 Body height 154.94 cm Dmitry Burk MD Work Phone: [facility] 12-17-2024 09:29-0400 Body mass index (BMI) [Ratio] 26.2 kg/m2 Dmitry Burk MD Work Phone: [facility] 12-17-2024 09:29-0400 Body weight 62.9 kg Dmitry Burk MD Work Phone: [facility] 06-18-2024 10:08-0400 Body mass index (BMI) [Ratio] 23.79 kg/m2 Juliet Chanel MD Work Phone: [facility] 06-18-2024 10:08-0400 Body weight 59 kg Juliet Chanel MD Work Phone: [facility] 06-18-2024 10:08-0400 Diastolic blood pressure 67 mm[Hg] Juliet Chanel MD Work Phone: [facility] 06-18-2024 10:08-0400 Heart rate 88 /min Juliet Chanel MD Work Phone: [facility] 06-18-2024 10:08-0400 SaO2% (BldA) [Mass fraction] 96 % Juliet Chanel MD Work Phone: [facility] 06-18-2024 10:08-0400 Systolic blood pressure 100 mm[Hg] Juliet Chanel MD Work Phone: [facility] 01-20-2024 09:51-0500 Body mass index (BMI) [Ratio] 25.6 kg/m2 Juliet Chanel MD Work Phone: [facility] 01-20-2024 09:51-0500 Body weight 63.5 kg Juliet Chanel MD Work Phone: [facility] 01-20-2024 09:51-0500 Diastolic blood pressure 79 mm[Hg] Juliet Chanel MD Work Phone: [facility] 01-20-2024 09:51-0500 Heart rate 83 /min Juliet Chanel MD Work Phone: [facility] 01-20-2024 09:51-0500 SaO2% (BldA) [Mass fraction] 98 % Juliet Chanel MD Work Phone: [facility] 01-20-2024 09:51-0500 Systolic blood pressure 127 mm[Hg] Juliet Chanel MD Work Phone: [facility] 09-16-2023 09:55-0400 Body height 157.5 cm Juliet Chanel MD Work Phone: [facility] 09-16-2023 09:55-0400 Body mass index (BMI) [Ratio] 24.72 kg/m2 Juliet Chanel MD Work Phone: [facility] 09-16-2023 09:55-0400 Body weight 61.3 kg Juliet Chanel MD Work Phone: [facility] 09-16-2023 09:55-0400 SaO2% (BldA) [Mass fraction] 95 % Juliet Chanel MD Work Phone: [facility] 07-04-2023 20:20-0400 Body temperature 97.1 [degF] MD Dmitry Burk Work Phone: [facility] 07-04-2023 20:20-0400 Diastolic blood pressure 64 mm[Hg] MD Dmitry Burk Work Phone: [facility] 07-04-2023 20:20-0400 Heart rate 64 /min MD Dmitry Burk Work Phone: [facility] 07-04-2023 20:20-0400 Respiratory rate 16 /min MD Dmitry Burk Work Phone: [facility] 07-04-2023 20:20-0400 SaO2% (BldA) [Mass fraction] 98 % MD Dmitry Burk Work Phone: [facility] 07-04-2023 20:20-0400 Systolic blood pressure 134 mm[Hg] MD Dmitry Burk Work Phone: [facility] 07-04-2023 19:08-0400 Body mass index (BMI) [Ratio] 26.3 kg/m2 MD Dmitry Burk Work Phone: [facility] 07-04-2023 19:08-0400 Body weight 63.2 kg MD Dmitry Burk Work Phone: [facility] 07-04-2023 18:43-0400 Body height 154.94 cm MD Dmitry Burk Work Phone: [facility] 06-25-2023 17:25-0400 Body temperature 97.7 [degF] MD Dmitry Bukr Work Phone: [facility] 06-25-2023 17:25-0400 Diastolic blood pressure 76 mm[Hg] MD Dmitry Burk Work Phone: [facility] 06-25-2023 17:25-0400 Heart rate 89 /min MD Dmitry Burk Work Phone: [facility] 06-25-2023 17:25-0400 Respiratory rate 17 /min MD Dmitry Burk Work Phone: [facility] 06-25-2023 17:25-0400 SaO2% (BldA) [Mass fraction] 97 % MD Dmitry Burk Work Phone: [facility] 06-25-2023 17:25-0400 Systolic blood pressure 124 mm[Hg] MD Dmitry Burk Work Phone: [facility] 06-25-2023 16:18-0400 Body mass index (BMI) [Ratio] 25.4 kg/m2 MD Dmitry Burk Work Phone: [facility] 06-25-2023 16:18-0400 Body weight 62.1 kg MD Dmitry Burk Work Phone: [facility] 06-25-2023 16:12-0400 Body height 156.21 cm MD Dmitry Burk Work Phone: [facility] 05-23-2023 17:06-0400 Body mass index (BMI) [Ratio] 24.1 kg/m2 MD Dmitry Burk Work Phone: [facility] 05-23-2023 17:06-0400 Body weight 59 kg MD Dmitry Burk Work Phone: [facility] 05-23-2023 15:01-0400 Body height 156.21 cm MD Dmitry Burk Work Phone: [facility] 05-23-2023 15:01-0400 Body temperature 97.3 [degF] MD Dmitry Burk Work Phone: [facility] 05-23-2023 15:01-0400 Diastolic blood pressure 84 mm[Hg] MD Dmitry Burk Work Phone: [facility] 05-23-2023 15:01-0400 Heart rate 80 /min MD Dmitry Burk Work Phone: [facility] 05-23-2023 15:01-0400 Respiratory rate 18 /min MD Dmitry Burk Work Phone: [facility] 05-23-2023 15:01-0400 SaO2% (BldA) [Mass fraction] 100 % MD Dmitry Burk Work Phone: [facility] 05-23-2023 15:01-0400 Systolic blood pressure 139 mm[Hg] MD Dmitry Burk Work Phone: [facility] 05-15-2023 07:50-0400 Body height 157.5 cm Juliet Chanel MD Work Phone: [facility] 05-15-2023 07:50-0400 Body weight 63.4 kg Juliet Chanel MD Work Phone: [facility] 05-15-2023 07:50-0400 SaO2% (BldA) [Mass fraction] 97 % Juliet Chanel MD Work Phone: [facility] 02-20-2023 08:54-0500 Body height 156.2 cm Rabia Yovany SIGN BUILDER SUPERVISOR - TRAVEL ACCOMMODATION INSPECTOR Work Phone: [facility] 02-20-2023 08:54-0500 Body mass index (BMI) [Ratio] 25.28 kg/m2 [facility] [place] [employer] BUILDER SUPERVISOR - TRAVEL ACCOMMODATION INSPECTOR Work Phone: [facility] 02-20-2023 08:54-0500 Body weight 61.69 kg Rabia Yovany SIGN BUILDER SUPERVISOR - TRAVEL ACCOMMODATION INSPECTOR Work Phone: [facility] 02-20-2023 08:54-0500 Diastolic blood pressure 81 mm[Hg] Rabia Yovany SIGN BUILDER SUPERVISOR - TRAVEL ACCOMMODATION INSPECTOR Work Phone: [facility] 02-20-2023 08:54-0500 Heart rate 68 /min Rabia Yovany SIGN BUILDER SUPERVISOR - TRAVEL ACCOMMODATION INSPECTOR Work Phone: [facility] 02-20-2023 08:54-0500 Systolic blood pressure 143 mm[Hg] Rabia Yovany SIGN BUILDER SUPERVISOR - TRAVEL ACCOMMODATION INSPECTOR Work Phone: [facility] 01-15-2023 17:21-0500 Respiratory rate 16 /min [facility] 01-15-2023 16:44-0500 Body mass index (BMI) [Ratio] 26.4 kg/m2 [facility] 01-15-2023 16:44-0500 Body weight 63.3 kg [facility] 01-15-2023 15:18-0500 Body height 154.94 cm [facility] 01-15-2023 15:18-0500 Body temperature 97.5 [degF] [facility] 01-15-2023 15:18-0500 Diastolic blood pressure 87 mm[Hg] [facility] 01-15-2023 15:18-0500 Heart rate 75 /min [facility] 01-15-2023 15:18-0500 SaO2% (BldA) [Mass fraction] 100 % [facility] 01-15-2023 15:18-0500 Systolic blood pressure 159 mm[Hg] [facility] 12-13-2022 07:56-0400 Body height 156.2 cm Maggi Bricetrish SIGN BUILDER SUPERVISOR-TRAVEL ACCOMMODATION INSPECTOR Work Phone: [facility] 12-13-2022 07:56-0400 Body mass index (BMI) [Ratio] 26.21 kg/m2 Maggi Gonzalez SIGN BUILDER SUPERVISOR-TRAVEL ACCOMMODATION INSPECTOR Work Phone: [facility] 12-13-2022 07:56-0400 Body temperature 98.29 [degF] Maggi Gonzalez SIGN BUILDER SUPERVISOR-TRAVEL ACCOMMODATION INSPECTOR Work Phone: [facility] 12-13-2022 07:56-0400 Body weight 63.96 kg Maggi Gonzalez SIGN BUILDER SUPERVISOR-TRAVEL ACCOMMODATION INSPECTOR Work Phone: [facility] 12-13-2022 07:56-0400 Diastolic blood pressure 74 mm[Hg] Maggi Gotrish SIGN BUILDER SUPERVISOR-TRAVEL ACCOMMODATION INSPECTOR Work Phone: [facility] 12-13-2022 07:56-0400 Heart rate 83 /min Maggi Gotrish SIGN BUILDER SUPERVISOR-TRAVEL ACCOMMODATION INSPECTOR Work Phone: [facility] 12-13-2022 07:56-0400 Systolic blood pressure 146 mm[Hg] Maggi Gonzalez SIGN BUILDER SUPERVISOR-TRAVEL ACCOMMODATION INSPECTOR Work Phone: [facility] 09-24-2022 09:15-0400 Body height 154.94 cm [facility] 09-24-2022 09:15-0400 Body mass index (BMI) [Ratio] 27.6 kg/m2 [facility] 09-24-2022 09:15-0400 Body temperature 97.2 [degF] [facility] 09-24-2022 09:15-0400 Body weight 66.22 kg [facility] 09-24-2022 09:15-0400 Diastolic blood pressure 69 mm[Hg] [facility] 09-24-2022 09:15-0400 Heart rate 78 /min [facility] 09-24-2022 09:15-0400 Respiratory rate 18 /min [facility] 09-24-2022 09:15-0400 SaO2% (BldA) [Mass fraction] 98 % [facility] 09-24-2022 09:15-0400 Systolic blood pressure 147 mm[Hg] [facility] 09-07-2022 11:34-0400 Diastolic blood pressure 75 mm[Hg] [facility] 09-07-2022 11:34-0400 Heart rate 84 /min [facility] 09-07-2022 11:34-0400 Respiratory rate 16 /min [facility] 09-07-2022 11:34-0400 Systolic blood pressure 184 mm[Hg] [facility] 09-07-2022 09:31-0400 Body mass index (BMI) [Ratio] 30.6 kg/m2 [facility] 09-07-2022 09:31-0400 Body weight 73.48 kg [facility] 09-07-2022 08:49-0400 Body height 154.94 cm [facility] 09-07-2022 08:49-0400 Body temperature 98 [degF] [facility] 09-07-2022 08:49-0400 SaO2% (BldA) [Mass fraction] 92 % [facility] 05-21-2022 09:59-0400 Body height 157.[address] Micheal Betancourt Work Phone: [facility] 05-21-2022 09:59-0400 Body mass index (BMI) [Ratio] 27.8 kg/m2 Dr. Micheal Betancourt Work Phone: [facility] 05-21-2022 09:59-0400 Body temperature 97.1 [degF] Dr. Micheal Betancourt Work Phone: [facility] 05-21-2022 09:59-0400 Body weight 68.[address] Micheal Betancourt Work Phone: [facility] 05-21-2022 09:59-0400 Diastolic blood pressure 78 mm[Hg] Dr. Micheal Betancourt Work Phone: [facility] 05-21-2022 09:59-0400 Heart rate 86 /min Dr. Micheal Betancourt Work Phone: [facility] 05-21-2022 09:59-0400 Respiratory rate 16 /min Dr. Micheal Betancourt Work Phone: [facility] 05-21-2022 09:59-0400 SaO2% (BldA) [Mass fraction] 98 % Dr. Micheal Betancourt Work Phone: [facility] 05-21-2022 09:59-0400 Systolic blood pressure 141 mm[Hg] Dr. Micheal Betancourt Work Phone: [facility] 02-22-2022 09:43-0500 Body temperature 98.2 [degF] Dr. Micheal Betancourt Work Phone: [facility] 02-22-2022 09:43-0500 Diastolic blood pressure 88 mm[Hg] Dr. Micheal Betancourt Work Phone: [facility] 02-22-2022 09:43-0500 Heart rate 85 /min Dr. Micheal Betancourt Work Phone: [facility] 02-22-2022 09:43-0500 Respiratory rate 16 /min Dr. Micheal Betancourt Work Phone: [facility] 02-22-2022 09:43-0500 SaO2% (BldA) [Mass fraction] 97 % Dr. Micheal Betancourt Work Phone: [facility] 02-22-2022 09:43-0500 Systolic blood pressure 138 mm[Hg] Dr. Micheal Betancourt Work Phone: [facility] 12-01-2021 14:00-0400 Body temperature 98.3 [degF] Dr. Micheal Betancourt Work Phone: [facility] 12-01-2021 14:00-0400 Diastolic blood pressure 72 mm[Hg] Dr. Micheal Betancourt Work Phone: [facility] 12-01-2021 14:00-0400 Heart rate 75 /min Dr. Micheal Betancourt Work Phone: [facility] 12-01-2021 14:00-0400 Respiratory rate 18 /min Dr. Micheal Betancourt Work Phone: [facility] 12-01-2021 14:00-0400 SaO2% (BldA) [Mass fraction] 96 % Dr. Micheal Betancourt Work Phone: [facility] 12-01-2021 14:00-0400 Systolic blood pressure 135 mm[Hg] Dr. Micheal Betancourt Work Phone: [facility] 11-28-2021 09:36-0400 Body weight 66.[address] Micheal Betancourt Work Phone: [facility] 11-23-2021 11:45-0400 Body height 157.[address] Micheal Betancourt Work Phone: [facility] 11-22-2021 15:03-0400 Body mass index (BMI) [Ratio] 26.4 kg/m2 Dr. Micheal Betancourt Work Phone: [facility] 11-22-2021 10:53-0400 Body temperature 97.88 [degF] DR JHON ANDREWS MD [address] [place] [address] 11-22-2021 10:53-0400 Diastolic blood pressure 60 mm[Hg] DR JHON ANDREWS MD [address] [place] [address] 11-22-2021 10:53-0400 Heart rate 99 /min DR JHON ANDREWS MD [address] [place] [address] 11-22-2021 10:53-0400 Mean blood pressure 83 mm[Hg] DR JHON ANDREWS MD [address] [place] [id number] 11-22-2021 10:53-0400 Reason For Taking VItal Signs DR JHON ANDREWS MD [address] 11-22-2021 10:53-0400 Respiratory rate 16 /min DR JHON ANDREWS MD [address] 11-22-2021 10:53-0400 Systolic blood pressure 129 mm[Hg] DR JHON ANDREWS MD [address] [place] [id number] 11-22-2021 07:54-0400 Body temperature 98.42 [degF] DR JHON ANDREWS MD [address] 11-22-2021 07:54-0400 Diastolic blood pressure 72 mm[Hg] DR JHON ANDREWS MD [address] 11-22-2021 07:54-0400 Heart rate 93 /min DR JHON ANDREWS MD [address] [place] [address] 11-22-2021 07:54-0400 Mean blood pressure 94 mm[Hg] DR JHON ANDREWS MD [address] [place] [id number] 11-22-2021 07:54-0400 Reason For Taking VItal Signs DR JHON ANDREWS MD [address] 11-22-2021 07:54-0400 Respiratory rate 16 /min DR JHON ANDREWS MD [address] 11-22-2021 07:54-0400 Systolic blood pressure 137 mm[Hg] DR JHON ANDREWS MD [address] [place] [id number] 11-22-2021 03:02-0400 Body temperature 98.42 [degF] DR JHON ANDREWS MD [address] [place] [id number] 11-22-2021 03:02-0400 Heart rate 90 /min DR JHON ANDREWS MD [address] [place] [id number] 11-22-2021 03:02-0400 Respiratory rate 16 /min DR JHON ANDREWS MD [address] [place] [id number] 11-21-2021 23:48-0400 Diastolic blood pressure 74 mm[Hg] DR JHON ANDREWS MD [address] [place] [id number] 11-21-2021 23:48-0400 Mean blood pressure 89 mm[Hg] DR JHON ANDREWS MD [address] [place] [id number] 11-21-2021 23:48-0400 Systolic blood pressure 118 mm[Hg] DR JHON ANDREWS MD [address] 11-21-2021 23:44-0400 Body height 165.[address] JHON ANDREWS MD [address] [place] [id number] 11-21-2021 23:44-0400 Body weight [address] JHON ANDREWS MD [address] [place] [id number] 11-21-2021 23:44-0400 Body weight 25.68 kg/m2 DR JHON ANDREWS MD [address] 11-21-2021 12:55-0400 Body weight 70 kg DR JHON ANDREWS MD [address] [place] [address] 11-21-2021 12:55-0400 Heart rate 75 /min DR JHON ANDREWS MD [address] 11-21-2021 12:04-0400 Diastolic blood pressure 43 mm[Hg] Dr. Micheal Betancourt Work Phone: [facility] Work Phone: 11-21-2021 12:04-0400 Heart rate 55 /min Dr. Micheal Betancourt Work Phone: [facility] Work Phone: 11-21-2021 12:04-0400 Respiratory rate 16 /min Dr. Micheal Betancourt Work Phone: [facility] Work Phone: 11-21-2021 12:04-0400 SaO2% (BldA) [Mass fraction] 97 % Dr. Micheal Betancourt Work Phone: [facility] Work Phone: 11-21-2021 12:04-0400 Systolic blood pressure 128 mm[Hg] Dr. Micheal Betancourt Work Phone: [facility] Work Phone: 11-21-2021 09:12-0400 Body height 157.[address] Micheal Betancourt Work Phone: [facility] Work Phone: 11-21-2021 09:12-0400 Body mass index (BMI) [Ratio] 28 kg/m2 Dr. Micheal Betancourt Work Phone: [facility] Work Phone: 11-21-2021 09:12-0400 Body temperature 97.8 [degF] Dr. Micheal Betancourt Work Phone: [facility] Work Phone: 11-21-2021 09:12-0400 Body weight 69.[address] Micheal Betancourt Work Phone: [facility] Work Phone: 11-09-2021 09:11-0400 Body mass index (BMI) [Ratio] 27.3 kg/m2 Dr. Micheal Betancourt Work Phone: [facility] Work Phone: 11-09-2021 09:11-0400 Body temperature 98.6 [degF] Dr. Micheal Betancourt Work Phone: [facility] Work Phone: 11-09-2021 09:11-0400 Body weight 67.[address] Micheal Betancourt Work Phone: [facility] Work Phone: 11-09-2021 09:11-0400 Diastolic blood pressure 90 mm[Hg] Dr. Micheal Betancourt Work Phone: [facility] Work Phone: 11-09-2021 09:11-0400 Heart rate 78 /min Dr. Micheal Betancourt Work Phone: [facility] Work Phone: 11-09-2021 09:11-0400 Respiratory rate 16 /min Dr. Micheal Betancourt Work Phone: [facility] Work Phone: 11-09-2021 09:11-0400 SaO2% (BldA) [Mass fraction] 99 % Dr. Micheal Betancourt Work Phone: [facility] Work Phone: 11-09-2021 09:11-0400 Systolic blood pressure 148 mm[Hg] Dr. Micheal Betancourt Work Phone: [facility] Work Phone: 10-19-2021 09:24-0400 Body height 157.[address] Micheal Betancourt Work Phone: [facility] Work Phone: 10-19-2021 09:24-0400 Body mass index (BMI) [Ratio] 27.4 kg/m2 Dr. Micheal Betancourt Work Phone: [facility] Work Phone: 10-19-2021 09:24-0400 Body temperature 97.3 [degF] Dr. Micheal Betancourt Work Phone: [facility] Work Phone: 10-19-2021 09:24-0400 Body weight 68.[address] Micheal Betancourt Work Phone: [facility] Work Phone: 10-19-2021 09:24-0400 Diastolic blood pressure 80 mm[Hg] Dr. Micheal Betancourt Work Phone: [facility] Work Phone: 10-19-2021 09:24-0400 Heart rate 98 /min Dr. Micheal Betancourt Work Phone: [facility] Work Phone: 10-19-2021 09:24-0400 Respiratory rate 18 /min Dr. Micheal Betancourt Work Phone: [facility] Work Phone: 10-19-2021 09:24-0400 SaO2% (BldA) [Mass fraction] 74 % Dr. Micheal Betancourt Work Phone: [facility] Work Phone: 10-19-2021 09:24-0400 Systolic blood pressure 167 mm[Hg] Dr. Micheal Betancourt Work Phone: [facility] Work Phone: 10-17-2021 11:38-0400 Respiratory rate 16 /min Dr. Micheal Betancourt Work Phone: [facility] Work Phone: 10-17-2021 09:35-0400 Body height 157.[address] Micheal Betancourt Work Phone: [facility] Work Phone: 10-17-2021 09:35-0400 Body mass index (BMI) [Ratio] 27.3 kg/m2 Dr. Micheal Betancourt Work Phone: [facility] Work Phone: 10-17-2021 09:35-0400 Body temperature 97.2 [degF] Dr. Micheal Betancourt Work Phone: [facility] Work Phone: 10-17-2021 09:35-0400 Body weight [address] Micheal Betancourt Work Phone: [facility] Work Phone: 10-17-2021 09:35-0400 Diastolic blood pressure 92 mm[Hg] Dr. Micheal Betancourt Work Phone: [facility] Work Phone: 10-17-2021 09:35-0400 Heart rate 88 /min Dr. Micheal Betancourt Work Phone: [facility] Work Phone: 10-17-2021 09:35-0400 SaO2% (BldA) [Mass fraction] 96 % Dr. Micheal Betancourt Work Phone: [facility] Work Phone: 10-17-2021 09:35-0400 Systolic blood pressure 129 mm[Hg] Dr. Micheal Betancourt Work Phone: [facility] Work Phone: 09-21-2021 15:09-0400 Body height 157.[address] Micheal Betancourt Work Phone: [facility] Work Phone: 12-07-2019 15:38-0400 BMI (Body Mass Index) 30.06 kg/m2 [facility] Internal Medicine Work Phone: 12-07-2019 15:38-0400 Body Temperature 96.9 [degF] [facility] Internal Medicine Work Phone: Comment on above: Method: Infrared 12-07-2019 15:38-0400 Body weight 73.95 kg [facility] Internal Medicine Work Phone: 12-07-2019 15:38-0400 BP Diastolic 80 mm[Hg] [facility] Internal Medicine Work Phone: Comment on above: Patient Position: Sitting; Cuff Location : Left Arm; Cuff Size: Standard 12-07-2019 15:38-0400 BP Systolic 128 mm[Hg] Janine Rice [facility] Internal Medicine Work Phone: Comment on above: Patient Position: Sitting; Cuff Location : Left Arm; Cuff Size: Standard 12-07-2019 15:38-0400 BSA (Body Surface Area) 1.75 m2 [facility] Work Phone: 12-07-2019 15:38-0400 Height 156.84 cm [facility] Work Phone: 12-07-2019 15:38-0400 Pulse (Heart Rate) 89 /min Janine Rice [facility] Internal Medicine Work Phone: Comment on above: Pattern: Regular 12-07-2019 15:38-0400 Pulse Oximetry 97 % [facility] Work Phone: Comment on above: Room air 12-07-2019 15:38-0400 Respiratory Rate 16 /min Janine Rice [facility] Internal Medicine Work Phone: Comment on above: Pattern: Unlabored Encounters Encounter Date Encounter Type Care Provider Facility Start: 12-17-2024 End: 12-17-2024 Emergency department patient visit Dr. John Webb DO -Emergency Department Work Phone: Start: 09-08-2024 Registered Referred Demetrio Hemphill MD - [facility] Start: 09-08-2024 End: 09-08-2024 ambulatory [facility] Facility:[facility] Start: 06-18-2024 End: 06-18-2024 Office outpatient visit 25 minutes Juliet Chanel MD Work Phone: Neurology Comment on above: PSP (progressive sup ranuclear palsy) ([facility]) Start: 06-18-2024 End: 06-18-2024 [facility] Start: 03-23-2024 End: 03-23-2024 Telephone encounter Ryne Munoz MD Work Phone: [facility] Gynecologic Oncology - [place] Start: 03-09-2024 End: 03-09-2024 ambulatory Micheal Mollison Facility:[facility] Start: 02-07-2024 End: 02-07-2024 ambulatory Taty Nurya SRIDEVI Facility:[facility] Start: 01-31-2024 ambulatory Taty Nurya SRIDEVI Facili ty:[facility] Start: 01-27-2024 End: 01-27-2024 ambulatory Micheal Mollison Facility:[facility] Start: 01-24-2024 End: 01-24-2024 Emergency department patient visit John Webb Facility:[facility] Start: 01-23-2024 End: 01-23-2024 ambulatory Taty Arringtona RSIDEVI Facility:[facility] Start: 01-22-2024 End: 01-22-2024 Emergency department patient visit Lázaro River Facility:[facility] Start: 01-20-2024 End: 01-20-2024 ambulatory DMITRY BURK Facility:[facility] Start: 01-20-2024 End: 01-20-2024 Office outpatient visit 40 minutes Juliet Chanel MD Work Phone: Neurology Comment on above: PSP (progressive sup ranuclear palsy) (HCC) Start: 11-08-2023 End: 11-08-2023 Patient encounter procedure Jesenia James PT, DPT Work Phone: [facility] Comment on above: 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); Imbalance; Abnormality of gait; Falls frequently Start: 11-08-2023 End: 11-08-2023 ambulatory Jesenia James PT, DPT Work Phone: [facility] Start: 10-03-2023 Telephone encounter Elicia hansen Research Coordinator Work Phone: [facility] Start: 10-02-2023 Telephone encounter Scotty marshall Research Coordinator Work Phone: [facility] Comment on above: Research (IRB [id number] ) Start: 09-25-2023 Telephone encounter Scotty marshall Research Coordinator Work Phone: [facility] Comment on above: Research (Asked for call back regarding [place] Study) Start: 09-23-2023 Telephone encounter Scotty marshall Research Coordinator Work Phone: [facility] Comment on above: Research (LVM for Or ion trial ) Start: 09-17-2023 Telephone encounter Scotty Shepard joanna Research Coordinator Work Phone: [facility] Comment on above: Research (Spoke with Ramos about PSP trial information. 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); Imbalance; Abnormality of gait; Falls frequently Start: 08-09-2023 End: 08-09-2023 ambulatory Jesenia James PT, DPT Work Phone: [facility] Start: 07-17-2023 End: 07-17-2023 Patient encounter procedure Lyssa Kemp [employer]CH [employer]SEM[employer]ER [employer]ICAL Work Phone: [facility] Comment on above: 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); Imbalance; Abnormality of gait; Falls frequently Start: 07-17-2023 End: 07-17-2023 ambulatory Lyssa [place] [employer] Work Phone: [facility] Start: 07-15-2023 Telephone encounter Juliet rosales MD Work Phone: Neurology Comment on above: Insurance Authorizat ion (Sinemet ) Start: 07-15-2023 Registered Recurring MD Dmitry Burk Work Phone: [facility]-Physical Therapy Work Phone: Start: 07-12-2023 End: 07-12-2023 ambulatory Lyssa [place] [employer] Work Phone: [facility] Start: 07-12-2023 End: 07-12-2023 Patient encounter procedure Lyssa HidalgoAidan [employer]SEM[employer] Work Phone: [facility] Comment on above: 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); Imbalance; Abnormality of gait; Falls frequently Start: 07-12-2023 Patient encounter procedure MD Dmitry Burk Work Phone: [facility] Work Phone: Start: 07-10-2023 Telephone encounter Juliet rosales MD Work Phone: [facility] Comment on above: Clarify Sinemet Start: 07-05-2023 End: 07-05-2023 Patient encounter procedure Lyssa Wallace [employer] Work Phone: [facility] Comment on above: 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); Imbalance; Abnormality of gait; Falls frequently Start: 07-05-2023 End: 07-05-2023 ambulatory Lyssa Wallace [employer] Work Phone: [facility] Start: 07-04-2023 End: 07-04-2023 Emergency department patient visit MD Dmitry Burk Work Phone: [facility]-Emergency Department Work Phone: Start: 06-28-2023 End: 06-28-2023 Patient encounter procedure Jseenia James PT, DPT Work Phone: [facility] Comment on above: 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); Imbalance; Abnormality of gait; Falls frequently Start: 06-28-2023 End: 06-28-2023 ambulatory Jesenia James PT, DPT Work Phone: [facility] Start: 06-27-2023 End: 06-27-2023 Patient encounter procedure MD Dmitry Burk Work Phone: [facility] Work Phone: Start: 06-25-2023 End: 06-25-2023 Emergency department patient visit MD Dmitry Burk Work Phone: [facility]-Emergency Department Work Phone: Start: 06-24-2023 End: 06-24-2023 ambulatory MD Dmitry Burk Work Phone: [facility] Work Phone: Start: 06-24-2023 End: 06-24-2023 Discharged Recurring MD Dmitry Burk Work Phone: [facility]-Occupational Therapy Work Phone: Start: 06-24-2023 Registered Recurring MD Dmitry Burk Work Phone: [facility]-Occ[facility]ational Therapy Work Phone: Start: 06-21-2023 End: 06-21-2023 ambulatory Lyssa Wallace [employer] Work Phone: [facility] Comment on above: 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); Imbalance; Abnormality of gait; Falls frequently Start: 06-14-2023 End: 06-14-2023 ambulatory Lyssa HidalgoAidan [employer] Work Phone: [facility] Comment on above: 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); Imbalance; Abnormality of gait; Falls frequently Start: 06-10-2023 Registered Recurring MD Dmitry Burk Work Phone: [facility]-Occupational Therapy Work Phone: Start: 06-07-2023 End: 06-07-2023 ambulatory JULIET YANIQUE Facility:[facility] Comment on above: 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); Imbalance; Abnormality of gait; Falls frequently Start: 05-29-2023 End: 05-29-2023 ambulatory MD Dmitry Burk Work Phone: [facility] Work Phone: Start: 05-29-2023 End: 05-29-2023 Patient encounter procedure MD Dmitry Burk Work Phone: [facility] Work Phone: Start: 05-27-2023 End: 05-27-2023 ambulatory Jesenia James PT, DPT Work Phone: [facility] Comment on above: Imbalance (Primary D x); PSP (progressive supranuclear palsy) (HCC); Abnormality of gait; Falls frequently Start: 05-23-2023 End: 05-23-2023 Emergency department patient visit MD Dmitry Burk Work Phone: [facility]-Emergency Department Work Phone: Start: 05-20-2023 End: 05-20-2023 Patient encounter procedure MD Dmitry Burk Work Phone: [facility] Work Phone: Start: 05-15-2023 End: 05-15-2023 Patient encounter procedure Juliet Chanel MD Work Phone: Neurology Comment on above: 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) Start: 05-03-2023 End: 05-03-2023 Patient encounter procedure MD Dmitry Burk Work Phone: [facility] Work Phone: Start: 05-03-2023 End: 05-03-2023 ambulatory MD Dmitry Burk Work Phone: [facility] Work Phone: Start: 05-03-2023 End: 05-03-2023 Discharged Recurring MD Dmitry Burk Work Phone: [facility]-Speech Therapy Work Phone: Start: 05-03-2023 Registered Recurring MD Dmitry Burk Work Phone: [facility]Speech Therapy Work Phone: Start: 04-30-2023 End: 04-30-2023 ambulatory MD Dmitry Burk Work Phone: [facility] Work Phone: Start: 04-30-2023 End: 04-30-2023 Patient encounter procedure MD Dimtry Burk Work Phone: [facility]iology, [place] Work Phone: Start: 03-12-2023 Telephone encounter Rabia villalta SIGN BUILDER SUPERVISOR - TRAVEL ACCOMMODATION INSPECTOR Work Phone: [facility] Gynecologic [facility] Comment on above: Results Start: 03-06-2023 End: 03-06-2023 Patient encounter procedure MD Dmitry Burk Work Phone: [facility]-Laboratory, [place] Work Phone: Start: 02-20-2023 End: 02-20-2023 Office outpatient visit 15 minutes Rabia Pedroza SIGN BUILDER SUPERVISOR - TRAVEL ACCOMMODATION INSPECTOR Work Phone: [facility] Comment on above: Endometrial cancer ( CMS/HCC) (HCC) (Primary Dx) Start: 01-15-2023 End: 01-15-2023 Emergency department patient visit [facility]-Emergency Department Work Phone: Start: 12-13-2022 ambulatory [facility] Facility:[facility] Start: 12-13-2022 End: 12-13-2022 Office outpatient visit 25 minutes Maggi Gonzalez SIGN BUILDER SUPERVISOR-TRAVEL ACCOMMODATION INSPECTOR Work Phone: [facility] [place] Comment on above: PSP (progressive sup ranuclear palsy) (Primary Dx) Start: 12-10-2022 End: 12-10-2022 Discharged Recurring [facility]-Physical Therapy Work Phone: Start: 11-13-2022 ambulatory [facility] Facility :[facility] Start: 09-24-2022 End: 09-24-2022 Emergency department patient visit [facility]Emergency Department Work Phone: Start: 09-12-2022 End: 09-12-2022 ambulatory [facility] Work Phone: Start: 09-12-2022 End: 09-12-2022 Patient encounter procedure [facility] Start: 09-07-2022 End: 09-07-2022 Emergency department patient visit [facility]Emergency Department Work Phone: Start: 09-03-2022 ambulatory [facility] Facility:[facility] Start: 08-20-2022 End: 08-20-2022 ambulatory [facility] Work Phone: Start: 08-20-2022 End: 08-20-2022 Patient encounter procedure [facility] Start: 08-11-2022 End: 08-11-2022 ambulatory [facility] Work Phone: Start: 08-11-2022 End: 08-11-2022 Patient encounter procedure [facility] Start: 08-08-2022 End: 08-08-2022 Discharged Recurring [facility]-Physical Therapy Work Phone: Start: 08-08-2022 Registered Recurring [facility]-Physical Therapy Start: 08-08-2022 End: 08-08-2022 Patient encounter procedure [facility] Start: 07-24-2022 End: 07-24-2022 ambulatory [facility] Work Phone: Start: 07-24-2022 End: 07-24-2022 Patient encounter procedure [facility] Start: 05-25-2022 End: 05-25-[address] Micheal Betancourt Work Phone: [facility] Work Phone: Start: 05-25-2022 End: 05-25-[address] Micheal Betancourt Work Phone: [facility] Start: 05-21-2022 End: 05-21-2022 Emergency department patient visit Dr. Micheal Betancourt Work Phone: [facility]-Emergency Department Start: 04-30-[address] Micheal Betancourt Work Phone: [facility]-Physical Therapy Start: 03-22-2022 End: 03-22-[address] Micheal Betancourt Work Phone: [facility] Work Phone: Start: 03-22-2022 End: 03-22-[address] Micheal Betancourt Work Phone: [facility]-Physical Therapy Start: 03-19-2022 End: 03-19-[address] Micheal Betancourt Work Phone: [facility] Start: 03-16-2022 End: 03-16-[address] Micheal Betancourt Work Phone: [facility] Start: 02-22-2022 End: 02-22-[address] Micheal Betancourt Work Phone: [facility] Start: 02-19-2022 End: 02-19-[address] Micheal Betancourt Work Phone: [facility] Work Phone: Start: 02-19-2022 End: 02-19-[address] [facility] Start: 02-06-2022 End: 02-06-[address] Micheal Betancourt Work Phone: [facility] Work Phone: Start: 02-06-2022 End: 02-06-[address] Micheal Betancourt Work Phone: [facility] Start: 12-14-2021 End: 12-14-[address] Micheal Betancourt Work Phone: [facility] Radiology Start: 12-12-2021 End: 12-13-2021 ambulatory JHON NADREWS Facility:A Start: 12-12-2021 End: 12-12-[address] JHON ANDREWS MD [facility] Start: 11-22-2021 End: 12-02-2021 Evaluation and management of inpatient Dr. Micheal Betancourt Work Phone: [facility]-Transitional Care Unit Start: 11-21-2021 End: 11-22-2021 Evaluation and management of inpatient MICHEAL BETANCOURT Facility:[facility] Start: 11-21-2021 End: 11-22-2021 Evaluation and management of inpatient DR JHON ANDREWS MD [facility] Start: 11-21-2021 End: 11-21-2021 Emergency department patient visit Dr. Micheal Betancourt Work Phone: [facility]-Emergency Department Start: 11-16-2021 End: 11-16-[address] Micheal Betancourt Work Phone: [facility] Start: 11-09-2021 End: 11-09-[address] Micheal Betancourt Work Phone: [facility] Neurology Start: 10-19-2021 End: 10-19-2021 Emergency department patient visit Dr. Micheal Betancourt Work Phone: [facility]-Emergency Department Start: 10-17-2021 End: 10-17-2021 Emergency department patient visit Dr. Micheal Betancourt Work Phone: [facility]-Emergency Department Start: 10-02-2021 End: 10-02-[address] Micheal Betancourt Work Phone: [facility]-Physical Therapy Start: 09-21-2021 End: 09-21-[address] Micheal Betancourt Work Phone: [facility]-Outpatient Bone Densitometry Start: 09-20-[address] Micheal Betancourt Work Phone: [facility]-Physical Therapy Start: 09-06-2021 End: 09-06-[address] Micheal Betancourt Work Phone: [facility] Start: 08-31-2021 End: 08-31-[address] Micheal Betancourt Work Phone: [facility]-Physical Therapy Start: 08-21-[address] [facility]ancourt [facility] Start: 08-11-2021 End: 08-11-[address] Micheal Betancourt Work Phone: [facility] Start: 07-27-2021 End: 07-27-[address] Micheal Betancourt Work Phone: [facility]-Physical Therapy Start: 07-11-2021 End: 07-11-[address] Micheal Betancourt Work Phone: [facility]-Outpatient Breast Imaging Start: 05-08-2021 End: 05-08-[address] Micheal Betancourt Work Phone: [facility] Start: 04-28-2021 End: 04-28-[address] Micheal Betancourt Work Phone: [facility] Radiology Start: 08-15-2020 End: 08-15-2020 Subsequent hospital visit by physician Ryne Munoz MD Work Phone: [facility] Comment on above: Malignant neoplasm o f endometrium (HCC) Start: 12-07-2019 End: 12-07-2019 Office outpatient visit 5 minutes Janine Krystal [facility] Internal Medicine Start: 12-13-2016 End: 12-13-2016 Ambulatory [facility] Facility[facility] MRI Procedures Date Procedure Procedure Detail Performing Clinician Start: 12-17-2024 Urnls dip stick/tabl et reagent auto microscopy Dmitry Burk MD Work Phone: Start: 12-17-2024 CT cervical spine without contrast Dmitry Burk MD Work Phone: Start: 12-17-2024 CT of head without contrast Dmitry Burk MD Work Phone: Start: 09-08-2024 Vitamin D, 25-hydrox y measurement Dmitry Burk MD Work Phone: Comment on above: Vitamin D StatusDefi ciency: <20 ng/mL (50nmol/L)Insufficiency: 20-30 ng/mL (50-75 nmol/L)Sufficiency: 30-100 ng/mL (75-250 nmol/L)Toxicity: >100 ng/mL (>250 nmol/L) Start: 07-12-2023 Plain chest X-ray MD Elaine Burk Work Phone: Start: 07-04-2023 CT of head without contrast MD Dmitry Burk Work Phone: Start: 06-25-2023 X-ray of lumbar spin e, two or three views MD Dmitry Burk Work Phone: Start: 05-29-2023 Plain x-ray of wrist MD Dmitry Burk Work Phone: Start: 05-23-2023 Plain x-ray of wrist MD Dmitry Burk Work Phone: Start: 04-30-2023 Plain x-ray of hand MD Dmitry Burk Work Phone: Start: 01-15-2023 CT cervical spine without contrast Start: 01-15-2023 CT of head without contrast Start: 12-13-2022 End: 12-13-2022 Psychiatric diagnostic evaluation Psychological and behavioral factors associated with disorders or diseases classified elsewhere Sugar Najera PhD Work Phone: Comment on above: Psychological and be havioral factors associated with disorders or diseases classified elsewhere (Primary Dx); Progressive supranuclear palsy Start: 09-24-2022 Radiologic examinati on of knee Start: 09-24-2022 CT cervical spine without contrast Start: 09-24-2022 CT of face Start: 09-24-2022 CT of head without contrast Start: 09-07-2022 Radiologic examinati on of knee Start: 09-07-2022 CT of head without contrast Start: 09-07-2022 Plain x-ray of pelvi s and lower extremity Start: 08-11-2022 MRI of brain without contrast Start: 05-25-2022 Radiography of sacrococcygeal spine Dr. Micheal Betancourt Work Phone: Start: 05-21-2022 CT of lumbar spine Dr. Micheal Betanocurt Work Phone: Start: 03-19-2022 Plain x-ray of pelvi s and lower extremity Dr. Micheal Betancourt Work Phone: Start: 12-14-2021 X-ray of lumbosacral spine Dr. Micheal Betancourt Work Phone: Start: 11-21-2021 End: 11-21-2021 Radiologic examination of knee Dr. Micheal Betancourt Work Phone: Start: 11-21-2021 CT cervical spine without contrast Dr. Micheal Betancourt Work Phone: Start: 11-21-2021 CT of head without contrast Dr. Micheal Betancourt Work Phone: Start: 11-16-2021 MRI of brain with contrast Dr. Micheal Betancourt Work Phone: Start: 10-19-2021 CT of head without contrast Dr. Micheal Betancourt Work Phone: Start: 10-17-2021 Plain x-ray of pelvi s and lower extremity Dr. Micheal Betancourt Work Phone: Start: 10-17-2021 Plain X-ray of shoulder Dr. Micheal Betancourt Work Phone: Start: 09-21-2021 Dual energy X-ray absorptiometry Dr. Micheal Betancourt Work Phone: Start: 07-11-2021 Screening mammography Wan Betancourt Work Phone: Start: 04-28-2021 Radiography of thora cic spine Dr. Micheal Betancourt Work Phone: Start: 04-28-2021 X-ray of lumbar spin e, two or three views Dr. Micheal Betancourt Work Phone: Start: 08-15-2020 Computed tomography of abdomen and pelvis with contrast Ryne Munoz MD Work Phone: Start: 12-08-2019 End: 12-08-[address] Lung Screening Comments: See Note; NOTES: [facility] Imaging Services [address] [place] [address] Lung Screening MR#: [id number] Acct: [id number] Name: RAMOS PADRON Rep #: [id number] : 1945 F 74 From: Gabino Bhakta MD PCP: MARYELLEN ReddyC Status: [facility] CLI Study: Low Dose CT Lung Screening Date of Exam: 12/07 Exam# [id number] Ordering Dr: Elizabeth Crandall NP PATCH WORKER -Cj STUDY: CT CHEST WITHOUT CONTRAST- LOW DOSE SCREENING PROTOCOL REASON FOR EXAM: Female, 74 years old. Former smoker. Quit smoking less than 5 years ago. 40 pack per year history. No current symptoms of lung cancer or pulmonary infection. Shared decision-making with referring PCP documented in patient''s record. RADIATION DOSAGE (If Supplied By Facility): CTDIvol = ( 3.02 ) mGy, DLP = ( 103.45 ) mGycm TECHNIQUE: Low dose screening CT examination performed from the base of the neck to the upper abdomen. Sagittal and coronal reformatted images performed. Sagittal and coronal MIP images provided. The measurements provided are average, rounded measurements per ACR guidelines. COMPARISON: 11/25/2018 FINDINGS: 4 mm noncalcified nodule in the left upper lobe lungs on image 68 and follow-up CT is recommended in 12 months document stability. There is no demonstrated pleural abnormality. Normal heart and pericardium. There are calcifications of the coronary arteries. Normal mediastinum. Normal hilar regions. Normal unenhanced pulmonary arteries. Normal aorta arch and descending thoracic aorta. Normal osseous structures. There is no demonstrated abnormality of the visualized upper abdomen. CT/Low Dose CT Lung Screening IMPRESSION: 1. 4 mm noncalcified left upper lobe nodule and follow-up CT is recommended in 12 months to document stability.. 2. Incidental findings include calcified coronary plaque.. ASSESSMENT CATEGORY: LungRADS 2 - Benign Appearance or Behavior. Continue annual screening with LDCT in 12 months, per established ACR guidelines. Electronically Signed: Gabino Bhakta MD at 13:07 EDT Tel , Service support , CC: LUPE Rice; LUPE Crandall Prehemmer: Signed Janine Rice Start: 12-08-2019 End: 12-08-2019 Oncology Visit Report Comments: See Note; NOTES: [facility] [address] [address] OFFICE VISIT Date of Service: 12/08/19 1203 MR#: [id number] Acct: [id number] Name: RAMOS PADRON Rep #: [id number] : 1945 From: Elizabeth Barnhart Age/Sex: 74/F [place] [facility] Status: Signed HPI HPI Reviewed eligibility criteria: 74 year old F with a 40 pack year smoking history (1 ppd x 40 years). Smoking Status: Former smoker (quit 01/2015 ) Patient is exhibiting no signs or symptoms of lung cancer at this time and verbalizes they would be willing to pursue treatment with curative intent if lung cancer is discovered. Decision Making Engaged in shared decision making visit utilizing a visual aid. Discussed the risks and benefits of lung cancer screening including the total radiation exposure, false positive rate, over diagnosis and potential need for follow-up diagnostic testing all associated with low-dose chest CT. Comorbidities hyperlipidemia ROS Const Denies anorexia, Denies fatigue, Denies headache(s), Denies poor appetite, Denies weight loss ENT Denies headache(s) Card Denies chest pain, Denies shortness of breath, Denies rapid, pounding, or irregular heartbeat Resp Denies cough, Denies shortness of breath, Denies coughing up blood, Denies wheezing GI Reports system reviewed and no additional complaints, except as docu Musc Reports system reviewed and no additional complaints, except as docu Skin/Breast Reports system reviewed and no additional complaints, except as docu Neuro Yes system reviewed and no additional complaints, except as docu, No headache(s) Psych Reports system reviewed and no additional complaints, except as docu Endo Reports system reviewed and no additional complaints, except as docu, Denies fatigue, Denies rapid, pounding, or irregular heartbeat León/Lymph Reports system reviewed and no additional complaints, except as docu Aller/Immun Denies wheezing Exam Const General: healthy appearing, well developed, not in acute distress Orientation: alert, awake, oriented x3 [facility] Head: normocephalic, atraumatic Neck Neck: trachea midline, supple, no lymphadenopathy noted Resp Effort Inspection: normal respiratory effort, symmetric chest movement Auscultation: Bilateral: Clear to Auscultation Cardio Rate: regular rate Rhythm: regular rhythm Heart Sounds: S1 normal, S2 normal, no murmurs Psych Mood: euthymic mood Affect: normal affect Speech and Movement: speech and movement normal Attitude: cooperative Results Results 12/08/19 LDCT Chest: FINDINGS: 4 mm noncalcified nodule in the left upper lobe lungs on image 68 and follow-up CT is recommended in 12 months document stability. There is no demonstrated pleural abnormality. Normal heart and pericardium. There are calcifications of the coronary arteries. Normal mediastinum. Normal hilar regions. Normal unenhanced pulmonary arteries. Normal aorta arch and descending thoracic aorta. Normal osseous structures. There is no demonstrated abnormality of the visualized upper abdomen. IMPRESSION: 1. 4 mm noncalcified left upper lobe nodule and follow-up CT is recommended in 12 months to document stability.. 2. Incidental findings include calcified coronary plaque.. ASSESSMENT CATEGORY: LungRADS 2 - Benign Appearance or Behavior. Continue annual screening with LDCT in 12 months, per established ACR guidelines. Intake Vital Signs 12/08/19 BP 159/82 H 12/08/19 Pulse 78 12/08/19 Temp 98.1 F 12/08/19 Pulse Oximetry (%) 98 Intake Visit Reasons: Lung cancer screening Chief Complaint: Lung cancer screening Allergies No Known Allergies Allergy (Verified 12/08/19 12:04) Medications simvastatin 20 mg tablet 20 mg PO QHS 90 Days #90 11/18/17 [History Confirmed 07/22/19] cholecalciferol (vitamin D3) 25 mcg (1,000 unit) capsule 6,000 unit PO DAILY cap 11/25/18 [History Confirmed 07/22/19] Acetaminophen [Tylenol Extra Strength] 1,000 mg PO TID 07/15/19 [History Confirmed 07/22/19] Ubidecarenone [Co Q-10] 100 mg PO DAILY 07/15/19 [History Confirmed 07/22/19] PFSH Medical History Abnormal bruising (Acute) Back pain (Acute) Difficulty balancing (Acute) Endometrial cancer (Acute) Fatigue (Acute) Migraines (Acute) Shoulder pain (Acute) Uterine cancer (Acute) Surgical History H/O: hysterectomy (Acute) History of left hip replacement (Chronic) Family History Other CVA (cerebral vascular accident) Cancer Hypertension Social History (Updated 12/08/19 @ 14:06 by Elizabeth Crandall NP, PATCH WORKER-C) Smoking Status: Former smoker quit date: 01/02/15 pack-years: 40 Tobacco: How many years used: 40 Electronic Cigarette Use: not used second hand exposure: Yes quit status: has quit before counseling given: provider counseling alcohol intake: never Assessment Plan 1. Encounter for screening for malignant neoplasm of lung Z12.2 Plan 1. A LDCT chest scan is recommended in 6 months d/t new finding of 4 mm non calcified left upper lobe nodule Patient is made aware images are subject to multidisciplinary review and if alternate recommendations for screening are advised, she will be contacted via phone. 2. Other findings: coronary artery calcifications. Advised routine follow up with her pcp. Orders Orders: Low Dose CT Lung Screening Today 2. History of tobacco use Z87.891 Plan commended on continued abstinence Orders Orders: Low Dose CT Lung Screening Today 12/08/19 1406 <Electronically signed by Elizabeth Crandall NP PATCH WORKER-C> Date Elizabeth Crandall NP PATCH WORKER-C Cosigner Signature: Date (if applicable) CC: Dr. Micheal Betancourt MD; Dr. Ryne Munoz MD Janine Rice 2014- Had cancer surgery- then had chemo after that Jalen Andrews Hysterectomy Jalen Andrews Comment on above: in 2013- Dr. Mariano Ball- [facility] Hysterectomy DR JHON Blas Insertion of hip prosthesis DR JHON ANDREWS MD Comment on above: left Lithotripsy DR JHON Blas Prosthetic arthropla sty of shoulder DR JHON ANDREWS MD Comment on above: left Total replacement of hip Jalen Andrews Comment on above: 2019- Dr Obando Viral antigen assay Dr. Chris Betancourt Work Phone: Viral antigen assay Dr. Chris Betancourt Work Phone: Plan of Treatment Date Care Activity Detail Author Start: 09-07-2032 DTaP/Tdap/Td Vaccine s (3 - Td or Tdap) DTaP/Tdap/Td Vaccines (3 - Td or Tdap) [facility] Start: 09-07-2032 DTaP/Tdap/Td Vaccine s (4 - Td or Tdap) DTaP/Tdap/Td Vaccines (4 - Td or Tdap) [facility] Start: 09-07-2032 Tetanus vaccination TETANUS [facility] Start: 09-07-2032 Urine microalbumin profile [facility] Start: 04-16-2027 Diabetes Screening Diabetes Screenin g [facility] Start: 12-24-2024 End: 12-24-2024 Patient encounter procedure 12/24/2024 10:00 AM EDT Office Visit Neurology [address] [phone] Juliet Chanel MD [address] [address] 6 month follow up - 60 min per [facility] Neu[facility] Comment on above: 6 month follow up - 60 min per [facility] Start: 12-17-2024 Simple repair f/e/e/n/l/m 2.6cm-5.0 cm RPR F/E/E/N/L/M 2.6-5.0 CM [facility] Start: 12-17-2024 [facility] Start: 06-18-2024 End: 06-18-2024 Patient encounter procedure 06/18/2024 10:00 AM EDT Office Visit Neurology [address] [phone] Juliet Chanel MD [address] [address] 5 month follow up (around 06/19/2024). 60 minutes per [facility] Neurology Comment on above: 5 month follow up (a round 06/19/2024). 60 minutes per KA Start: 04-01-2024 End: 04-01-2024 Patient encounter procedure 04/01/2024 1:30 PM EST Office Visit [facility] Gynecologic Oncology - [place] [address] [place] [address] Ryne Munoz MD [address] [facility] [address] [address] [place] [address] [facility] Gynecologic Oncology - [place] Start: 03-04-2024 Advance Directive Discussion Advance Directive Discussion [facility] Start: 02-21-2024 End: 02-21-2024 Patient encounter procedure 02/21/2024 9:30 AM EST Office Visit [facility] Gynecologic Oncology [address] [facility] [address] [place] [address] YovanyLaraen, SIGN BUILDER SUPERVISOR - TRAVEL ACCOMMODATION INSPECTOR [address] [facility] [address] [place] [address] [facility] Gynecologic Oncology Start: 01-20-2024 End: 01-20-2024 Patient encounter procedure 01/20/2024 10:00 AM EST Office Visit Neurology [address] [phone] Juliet Chanel MD [address] [address] Return in about 4 months (around 01/17/2024). 60 minutes per [facility] Neurology Comment on above: Return in about 4 mo nths (around 01/17/2024). 60 minutes per [facility]A Start: 11-08-2023 End: 11-08-2023 Patient encounter procedure 11/08/2023 10:00 AM EDT OT/PT/Speech Visit [facility] [address] [place] [address] Jesenia James, PT, DPT [address] [place] [address] Gait Abnormality [facility] Comment on above: Gait Abnormality Start: 11-03-2023 Covid-19 Vaccine ( season) Covid-19 Vaccine ( season) [facility] Start: 11-03-2023 Covid-19 Vaccine ( season) Covid-19 Vaccine ( season) [facility] Start: 11-03-2023 Influenza vaccination Influenza Vacc ine (#1) [facility] Start: 09-16-2023 End: 09-16-2023 Patient encounter procedure 09/16/2023 10:00 AM EDT Office Visit Neurology [address] [phone] Juliet Chanel MD [address] [address] 3 month follow up Neurology Comment on above: 3 month follow up Start: 08-09-2023 End: 08-09-2023 Patient encounter procedure 08/09/2023 2:00 PM EDT OT/PT/Speech Visit [facility] [address] [place] [address] Jesenia James, PT, DPT [address] [place] [address] [facility] Comment on above: RECHECK Start: 07-26-2023 End: 07-26-2023 Patient encounter procedure 07/26/2023 2:00 PM EDT OT/PT/Speech Visit [facility] [address] [place] [address] Jesenia James, PT, DPT [address] [place] [address] [facility] Comment on above: RECHECK Start: 07-17-2023 End: 07-17-2023 Patient encounter procedure 07/17/2023 10:45 AM EDT OT/PT/Speech Visit [facility] [address] [place] [address] Lyssa Kemp, BENCH ASSEMBLER ELECTRICAL [address] [place] [address] Gait Abnormality [facility] Comment on above: Gait Abnormality Start: 07-15-2023 End: 07-15-2023 Patient encounter procedure 07/15/2023 12:15 PM EDT OT/PT/Speech Visit [facility] [address] [place] [address] Tyrone'Lyssa Bermudez, BENCH ASSEMBLER [employer]LECTRICAL [address] [place] [address] Gait Abnormality [facility] Comment on above: Gait Abnormality Start: 07-12-2023 Acid Fast Bacilli Culture Acid Fast Bacilli Culture [facility] Start: 07-12-2023 Acid Fast Bacilli Smear Acid Fast Ba cilli Smear [facility] Start: 07-12-2023 End: 07-12-2023 Patient encounter procedure 07/12/2023 10:45 AM EDT OT/PT/Speech Visit [facility] [address] [place] [address] Lyssa Kemp, BENCH ASSEMBLER ELECTRICAL [address] [place] [address] Gait Abnormality [facility] Comment on above: Gait Abnormality Start: 07-05-2023 End: 07-05-2023 Patient encounter procedure 07/05/2023 10:00 AM EDT OT/PT/Speech Visit [facility] [address] [place] [address] Lyssa Kemp, BENCH ASSEMBLER ELECTRICAL [address] [place] [address] Gait Abnormality [facility] Comment on above: Gait Abnormality Start: 07-04-2023 [facility] Start: 06-27-[address] [facility] Work Phone: Start: 06-25-2023 [facility] Start: 05-23-2023 [facility] Start: 05-20-2023 End: 05-20-2023 Patient encounter procedure 05/20/2023 11:00 AM EDT Office Visit [facility] [place] [address] [place] [phone] Jazmyn Boyd, SIGN BUILDER SUPERVISOR-TRAVEL ACCOMMODATION INSPECTOR [address] [place] [address] [facility] [place] Start: 03-04-2023 Advance Directive Discussion Advance Directive Discussion [facility] Start: 03-04-2023 Depression Assessment Depression Ass essment [facility] Start: 02-20-2023 End: 02-21-2024 CA 125 CA 125 Lab Routine Endometrial cancer (CMS/HCC) (HCC) Expected: 02/20/2023 (Approximate), Expires: 02/21/2024 [facility] Work Phone: Comment on above: Expected: 02/20/2023 (Approximate), Expires: 02/21/2024 Start: 11-02-2022 COVID-19 Vaccine () COVID-19 Vaccine () [facility] Start: 11-02-2022 Influenza vaccination INFLUENZA VACC INE (#1) [facility] Start: 09-24-2022 Simple repair f/e/e/n/l/m 2.6cm-5.0 cm RPR F/E/E/N/L/M 2.6-5.0 CM [facility] Start: 09-07-2022 Simple repair f/e/e/n/l/m 2.5cm/< RPR F/E/E/N/L/M 2.5 CM/< [facility] Start: 03-19-[address] [facility] Work Phone: Start: 03-16-[address] [facility] Work Phone: Start: 12-21-2021 Blood chemistry [facility] Work Phone: Start: 12-14-2021 Blood chemistry [facility] Work Phone: Start: 12-07-2021 Blood chemistry [facility] Work Phone: Start: 12-03-[address] [facility] Work Phone: Start: 12-02-2021 Patient discharge [facility] Start: 12-01-2021 Development of care plan [facility] Start: 11-24-2021 Speech therapy management [facility] Start: 11-23-2021 Development of care plan [facility] Start: 11-23-2021 Developing a treatme nt plan [facility] Start: 11-23-2021 Speech therapy management [facility] Start: 11-23-2021 Speech therapy assessment [facility] Start: 11-22-2021 Following clinical pathway protocol [facility] Start: 11-22-2021 Wound care [facility] Start: 11-22-2021 Admission procedure [facility] Start: 11-22-2021 Measuring intake and output [facility] Start: 11-22-2021 Patient referral to dietitian [facility] Start: 11-22-2021 Referral to occupational therapist [facility] Start: 11-22-2021 Referral to service [facility] Start: 11-22-2021 Vital signs measurements [facility] Start: 11-22-2021 End: 11-22-2021 [facility] Start: 11-22-2021 Removal of device [facility] Start: 11-21-2021 Simple repair f/e/e/n/l/m 2.5cm/< RPR F/E/E/N/L/M 2.5 CM/< [facility] Work Phone: Start: 11-16-2021 [place] and lambda lig ht chains [facility] Work Phone: Start: 11-16-2021 Thiamine measurement [facility] Work Phone: Start: 11-09-[address] [facility] Work Phone: Start: 02-08-2021 End: 02-08-2021 Patient encounter procedure 02/08/2021 Office Visit Gynecologic Oncology Ryne Munoz MD [address] [facility] [place] [address] [employer] [place] Start: 11-02-2020 Influenza vaccination Flu vacc ine (Season Ended) [employer] Work Phone: Start: 2020 RSV Immunization for Adults (1 - 1-dose 75+ series) RSV Immunization for Adults (1 - 1-dose 75+ series) [employer] [facility] Start: 12-07-2019 Procedure Education Eprescribe d prescriptions (G8553) [facility] Work Phone: Start: 08-24-2018 Annual Wellness Visi t (AWV) Annual Wellness Visit (AWV) [facility] Work Phone: Start: 2010 Pneumococcal 65+ yea rs Vaccine (1 of 1 - PPSV23) Pneumococcal 65+ years Vaccine (1 of 1 - PPSV23) [facility] Work Phone: Start: 2010 Pneumococcal vaccination PNEUMOCOCCAL VACCINE SERIES (1 - PCV) [facility] Start: 2010 Pneumococcal Vaccine : 65+ (1 of 1 - PCV) Pneumococcal Vaccine: 65+ (1 of 1 - PCV) [facility] Start: 2010 Pneumococcal Vaccine : 65+ Years (1 of 1 - PCV) Pneumococcal Vaccine: 65+ Years (1 of 1 - PCV) [facility] Start: 2010 Screening for osteoporosis Bone Density Screening [facility] Start: 2005 RSV Immunization age d 60 or older (1 - 1-dose 60+ series) RSV Immunization aged 60 or older (1 - 1-dose 60+ series) [facility] Start: 2000 Screening for osteoporosis DEXA (modify frequency per FRAX score) [facility] Work Phone: Start: 06-10-1995 Pneumococcal Vaccine : 50+ (1 of 1 - PCV) Pneumococcal Vaccine: 50+ (1 of 1 - PCV) [facility] Start: 06-10-1995 Pneumococcal Vaccine : 50+ Years (1 of 1 - PCV) Pneumococcal Vaccine: 50+ Years (1 of 1 - PCV) [facility] Start: 06-10-1995 Screening for malign ant neoplasm of colon Colon cancer screen colonoscopy [facility] Work Phone: Start: 06-10-1995 Shingles Vaccine (1 of 2) Shingles Vaccine (1 of 2) [facility] Work Phone: Start: 06-10-1995 Shingrix Vaccine (1 of 2) Shingrix Vaccine (1 of 2) [facility] Start: 06-10-1995 Zoster vaccine hzv l kira for subcutaneous use ZOSTER (SHINGLES) VACCINE (1 of 2) [facility] Start: 06-10-1995 Zoster Vaccines (1 o f 2) Zoster Vaccines (1 of 2) [facility] Start: 1990 Diabetes Screening Diabetes Screenin g [facility] Start: 1990 Screening for malign ant neoplasm of colon COLORECTAL CANCER SCREENING DISCUSSION [facility] Start: 1985 Screening for malign ant neoplasm of breast MAMMOGRAM SCREENING DISCUSSION [facility] Start: 1966 Screening for malign ant neoplasm of cervix CERVICAL CANCER SCREENING DISCUSSION [facility] Start: 1964 DTaP/Tdap/Td vaccine (1 - Tdap) DTaP/Tdap/Td vaccine (1 - Tdap) [facility] Work Phone: Start: 06-10-1963 Anxiety Screening Anxiety Screening [facility] Start: 06-10-1963 Depression Screening Depression Scre ening [facility] Start: 06-10-1963 Hepatitis C screening Hepatitis C Sc reening [facility] Start: 1957 COVID-19 Vaccine (1) COVID-19 Vaccin e (1) [facility] Work Phone: Start: 1957 Depression Screening Depression Scre [facility] Start: 06-10-1955 Lipid panel Lipid screen [facility] Work Phone: Start: 1945 COVID-19 VACCINE (#1) COVID-19 VACCI NE (#1) [facility] Start: 1945 Hepatitis C screening [facility] Start: 1945 Lipid panel Lipid Panel [facility] Start: 1945 Medicare Annual Wellness (AWV) Medicare Annual Wellness (AWV) [facility] Start: 1945 Screening for osteoporosis [facility] Acid fast bacilli culture [facility] Mycobacterium sp identified in Unspecified specimen by Organism specific culture [facility] Patient Education [facility] Work Phone: Patient referral [facility] Work Phone: [facility]ternal [facility] Work Phone: [facility] Immunizations Immunization Date Immunization Notes Care Provider Marip[facility] 12-26-2022 influenza virus vaccine, unspecified formulation Juliet Chanel MD Work Phone: [facility] 09-07-2022 tetanus toxoid, redu janet diphtheria toxoid, and acellular pertussis vaccine, adsorbed [facility] 11-23-2021 influenza, injectabl e, quadrivalent, preservative free [facility] 11-23-2021 influenza, seasonal, injectable Dr. 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 Micheal Betancourt Work Phone: [facility] 01-17-2021 Covid (Moderna) Dr. Micheal felix Work Phone: [facility] 06-16-2020 Covid (Moderna) Dr. Micheal felix Work Phone: [facility] 05-19-2000 Covid (Moderna) Dr. Micheal felix Work Phone: [facility] Payers Date Payer Category Payer Self-pay [id number] 2021 Medicare supplementa l policy (as second payer) O MEDICARE SUPPLEMENT [id number] 2021 Private Health Insurance MMO MED ICARE SUPPLEMENT Member Subscriber Plan / Payer (Effective 2021-Present) Name: Ramos Padron Relation to Subscriber: Self Name: Ramos Padron Payer ID: Not on file Group ID: Not on file Type: Indemniwillis Address: [place] [id number] 2015 Unknown 2015 Unknown [id number] 2010 Medicare [id number] 2010 Medicare [id number] 1959 Medicare [id number] 1945 Unknown [id number] .627 1945 Unknown [id number] 2.16840.1.188115.3.579.2 .627 1945 Unknown [id number] 2.16840.1.600528.3.579.2 .594 1945 Unknown [id number] 2.16840.1.244381.3.579.2 .594 1945 Unknown [id number] 2.16840.1.339962.3.579.2 .594 1945 Unknown [id number] 2.16840.1.502801.3.579.2 .594 1945 Unknown [id number] 2.16840.1.834713.3.579.2 .594 1945 Unknown [id number] 2.16.840.1.706052.3.579.2 .594 1945 Unknown [id number] 2.16.840.1.470380.3.579.2 .594 Unknown [facility] [id number] Unknown [id number] [id number] .462 Unknown [id number] 2.16.840.1.787630.3.579.2 .462 Unknown [id number] 2.16.840.1.763956.3.579.2 .462 Unknown [id number] 2.16.840.1.428789.3.579.2 .462 Unknown [id number] 2.16.840.1.674314.3.579.2 .462 Unknown [id number] 2.16.840.1.955497.3.579.2 .462 Unknown [id number] 2.16.840.1.554945.3.579.2 .462 Unknown [id number] 2.16.840.1.256669.3.579.2 .462 Unknown [id number] 2.16.840.1.436918.3.579.2 .462 Social History Date Type Detail Facility Start: 02-19-2022 End: 05-27-2023 Alcohol Use Alcohol Use [facility] Work Phone: Comment on above: 1/ month 1per day quit in 2016 [facility] Work [facility]: Comment on above: is POA Start: 08-10-2020 End: 12-17-2024 Tobacco smoking status HIIS Former smoker [facility] Work Phone: History of tobacco use Cigarette Smoker [facility] Start: 08-10-2020 End: 05-15-2023 Tobacco use and exposure Never used [facility] Start: 08-10-2020 End: 02-19-2022 Alcohol intake Current non-drinker of alcohol (finding) [facility] Work Phone: Start: 01-21-2017 Tobacco Comment chewing nicotine gum [employer] Phone: Start: 1945 Sex Assigned At Not on file [facility] Work Phone: Start: 05-08-2021 End: 07-04-2023 Tobacco smoking status NHIS Unknown if ever smoked [facility] Start: 07-15-2019 Non-smoker [facility] Start: 1945 Sex Assigned At Female [facility] Start: 12-12-2021 Tobacco smoking status Never s moked tobacco (finding) [facility] Sex Assigned At Sex [facility] Start: 02-19-2022 End: 05-27-2023 Gender identity Not on file [facility] History of tobacco use Current smoker [facility] Adult Depression Screening Assessment 0 [facility] Start: 10-02-2021 Sex Female (finding) [facility] Medical Equipment Procedure Code Equipment Code Equipment Origin al Text Equipment Identifier Dates Minimally invasive 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 [address] Ang[address] Stem FDA Start: 07-22-2019 Minimally invasive 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 Ceramic V40 Fem Head FDA Start: 07-22-2019 Minimally invasive 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 Clusterhole Acetabular Shell FDA Start: 07-22-2019 Minimally invasive 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 Polyethylene Insert FDA Start: 07-22-2019 Minimally invasive 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 [address] Angle Stem FDA Start: 07-22-2019 Minimally invasive 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 Ceramic V40 Fem Head FDA Start: 07-22-2019 Minimally invasive 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 Clusterhole Acetabular Shell FDA Start: 07-22-2019 Minimally invasive 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 Polyethylene Insert FDA Start: 07-22-2019 Minimally invasive 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 127 [address] Angle Stem FDA Start: 07-22-2019 Minimally invasive 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 Ceramic V40 Fem Head FDA Start: 07-22-2019 Minimally invasive 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 Clusterhole Acetabular Shell FDA Start: 07-22-2019 Minimally invasive 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 Polyethylene Insert FDA Start: 07-22-2019 Minimally invasive 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 127 N[address]k Angle Stem FDA Start: 07-22-2019 Minimally invasive 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 Ceramic V40 Fem Head FDA Start: 07-22-2019 Minimally invasive 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 Clusterhole Acetabular Shell FDA Start: 07-22-2019 Minimally invasive 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 Polyethylene Insert FDA Start: 07-22-2019 Minimally invasive 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 127 N[address]k Angle Stem FDA Start: 07-22-2019 Minimally invasive 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 Ceramic V40 Fem Head FDA Start: 07-22-2019 Minimally invasive 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 Clusterhole Acetabular Shell FDA Start: 07-22-2019 Minimally invasive 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 Polyethylene Insert FDA Start: 07-22-2019 Minimally invasive 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 127 Ncek Angle Stem FDA Start: 07-22-2019 Minimally invasive 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 Ceramic V40 Fem Head FDA Start: 07-22-2019 Minimally invasive 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 Clusterhole Acetabular Shell FDA Start: 07-22-2019 Minimally invasive 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 Polyethylene Insert FDA Start: 07-22-2019 Minimally invasive 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 127 Ncek Angle Stem FDA Start: 07-22-2019 Minimally invasive 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 Ceramic V40 Fem Head FDA Start: 07-22-2019 Minimally invasive 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 Clusterhole Acetabular Shell FDA Start: 07-22-2019 Minimally invasive 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 Polyethylene Insert FDA Start: 07-22-2019 Minimally invasive 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 127 Ncek Angle Stem FDA Start: 07-22-2019 Minimally invasive 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 Ceramic V40 Fem Head FDA Start: 07-22-2019 Minimally invasive 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 Clusterhole Acetabular Shell FDA Start: 07-22-2019 Minimally invasive 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 Polyethylene Insert FDA Start: 07-22-2019 Minimally invasive 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 127 Ncek Angle Stem FDA Start: 07-22-2019 Minimally invasive 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 Ceramic V40 Fem Head FDA Start: 07-22-2019 Minimally invasive 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 Clusterhole Acetabular Shell FDA Start: 07-22-2019 Minimally invasive 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 Polyethylene Insert FDA Start: 07-22-2019 Minimally invasive 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 127 Ncek Angle Stem FDA Start: 07-22-2019 Minimally invasive 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 Ceramic V40 Fem Head FDA Start: 07-22-2019 Minimally invasive 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 Clusterhole Acetabular Shell FDA Start: 07-22-2019 Minimally invasive 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 Polyethylene Insert FDA Start: 07-22-2019 Minimally invasive 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 127 Ncek Angle Stem FDA Start: 07-22-2019 Minimally invasive 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 Ceramic V40 Fem Head FDA Start: 07-22-2019 Minimally invasive 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 Clusterhole Acetabular Shell FDA Start: 07-22-2019 Minimally invasive 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 Polyethylene Insert FDA Start: 07-22-2019 Minimally invasive 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 127 Ncek Angle Stem FDA Start: 07-22-2019 Minimally invasive 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 Ceramic V40 Fem Head FDA Start: 07-22-2019 Minimally invasive 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 Clusterhole Acetabular Shell FDA Start: 07-22-2019 Minimally invasive 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 Polyethylene Insert FDA Start: 07-22-2019 Minimally invasive 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 127 Ncek Angle Stem FDA Start: 07-22-2019 Minimally invasive 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 Ceramic V40 Fem Head FDA Start: 07-22-2019 Minimally invasive 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 Clusterhole Acetabular Shell FDA Start: 07-22-2019 Minimally invasive 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 Polyethylene Insert FDA Start: 07-22-2019 Minimally invasive 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 127 Ncek Angle Stem FDA Start: 07-22-2019 Minimally invasive 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 Ceramic V40 Fem Head FDA Start: 07-22-2019 Minimally invasive 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 Clusterhole Acetabular Shell FDA Start: 07-22-2019 Minimally invasive 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 Polyethylene Insert FDA Start: 07-22-2019 Minimally invasive 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 127 Ncek Angle Stem FDA Start: 07-22-2019 Minimally invasive 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 Ceramic V40 Fem Head FDA Start: 07-22-2019 Minimally invasive 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 Clusterhole Acetabular Shell FDA Start: 07-22-2019 Minimally invasive 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 Polyethylene Insert FDA Start: 07-22-2019 Minimally invasive 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 127 N[address]k Angle Stem FDA Start: 07-22-2019 Minimally invasive 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 Ceramic V40 Fem Head FDA Start: 07-22-2019 Minimally invasive 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 Clusterhole Acetabular Shell FDA Start: 07-22-2019 Minimally invasive 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 Polyethylene Insert FDA Start: 07-22-2019 Minimally invasive 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 127 [address] Angle Stem FDA Start: 07-22-2019 Minimally invasive 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 Ceramic V40 Fem Head FDA Start: 07-22-2019 Minimally invasive 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 Clusterhole Acetabular Shell FDA Start: 07-22-2019 Minimally invasive 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 Polyethylene Insert FDA Start: 07-22-2019 Minimally invasive 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 127 Ncek Angle Stem FDA Start: 07-22-2019 Minimally invasive 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 Ceramic V40 Fem Head FDA Start: 07-22-2019 Minimally invasive 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 Clusterhole Acetabular Shell FDA Start: 07-22-2019 Minimally invasive 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 Polyethylene Insert FDA Start: 07-22-2019 Minimally invasive 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 127 [address]k Angle Stem FDA Start: 07-22-2019 Minimally invasive 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 Ceramic V40 Fem Head FDA Start: 07-22-2019 Minimally invasive 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 Clusterhole Acetabular Shell FDA Start: 07-22-2019 Minimally invasive 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 Polyethylene Insert FDA Start: 07-22-2019 Minimally invasive 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 127 N[address]k Angle Stem FDA Start: 07-22-2019 Minimally invasive 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 Ceramic V40 Fem Head FDA Start: 07-22-2019 Minimally invasive 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 Clusterhole Acetabular Shell FDA Start: 07-22-2019 Minimally invasive 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 Polyethylene Insert FDA Start: 07-22-2019 Minimally invasive 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 127 Ncek Angle Stem FDA Start: 07-22-2019 Minimally invasive 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 Ceramic V40 Fem Head FDA Start: 07-22-2019 Minimally invasive 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 Clusterhole Acetabular Shell FDA Start: 07-22-2019 Minimally invasive 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 Polyethylene Insert FDA Start: 07-22-2019 Minimally invasive 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 127 Ncek Angle Stem FDA Start: 07-22-2019 Minimally invasive 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 Ceramic V40 Fem Head FDA Start: 07-22-2019 Minimally invasive 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 Clusterhole Acetabular Shell FDA Start: 07-22-2019 Minimally invasive 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 Polyethylene Insert FDA Start: 07-22-2019 Minimally invasive 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 127 Ncek Angle Stem FDA Start: 07-22-2019 Minimally invasive 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 Ceramic V40 Fem Head FDA Start: 07-22-2019 Minimally invasive 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 Clusterhole Acetabular Shell FDA Start: 07-22-2019 Minimally invasive 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 Polyethylene Insert FDA Start: 07-22-2019 Minimally invasive 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 127 [address] Angle Stem FDA Start: 07-22-2019 Minimally invasive 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 Ceramic V40 Fem Head FDA Start: 07-22-2019 Minimally invasive 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 Clusterhole Acetabular Shell FDA Start: 07-22-2019 Minimally invasive 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 Polyethylene Insert FDA Start: 07-22-2019 Minimally invasive 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 127 Ncek Angle Stem FDA Start: 07-22-2019 Minimally invasive 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 Ceramic V40 Fem Head FDA Start: 07-22-2019 Minimally invasive 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 Clusterhole Acetabular Shell FDA Start: 07-22-2019 Minimally invasive 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 Polyethylene Insert FDA Start: 07-22-2019 Minimally invasive 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 127 [address]k Angle Stem FDA Start: 07-22-2019 Minimally invasive 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 Ceramic V40 Fem Head FDA Start: 07-22-2019 Minimally invasive 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 Clusterhole Acetabular Shell FDA Start: 07-22-2019 Minimally invasive 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 Polyethylene Insert FDA Start: 07-22-2019 Minimally invasive 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 127 [address]k Angle Stem FDA Start: 07-22-2019 Minimally invasive 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 Ceramic V40 Fem Head FDA Start: 07-22-2019 Minimally invasive 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 Clusterhole Acetabular Shell FDA Start: 07-22-2019 Minimally invasive 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 Polyethylene Insert FDA Start: 07-22-2019 Minimally invasive 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 [address] Angle Stem FDA Start: 07-22-2019 Minimally invasive 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 Ceramic V40 Fem Head FDA Start: 07-22-2019 Minimally invasive 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 Clusterhole Acetabular Shell FDA Start: 07-22-2019 Minimally invasive 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 Polyethylene Insert FDA Start: 07-22-2019 Goals Date Patient Goal Desired Activity /State Functional Status Date Assessment Result Facility 12-02-2021 Functional status Ambulates;Bedr est;Bathroom Privilege [facility] Work Phone: 11-22-2021 Functional Status Identified as high risk, Fall ID band on, Room located near nursing station, Bed alert on, Door open, Non-Slip footwear, Room check performed [facility] 11-22-2021 Functional Status Single level home [facility] 11-22-2021 Functional Status [facility] 11-22-2021 Functional Status Maintained [facility] 11-21-2021 Functional Status Repositions self [facility] Mental Status Date Assessment Result Facility 12-02-2021 Cognitive function Voice/Name [facility] Work Phone: 11-22-2021 Mental Status Oriented x 4 [facility] 11-22-2021 Mental Status [facility] 11-21-2021 Mental Status [facility] Clinical Notes 11-21-2021 to 12-17-2024 Juliet Chanel MD - 06/18/2024 12:32 PM EDTPatient InstructionsTelephone Hema - Gil Pastor - 03/23/2024 3:33 PM ESTTelephone Encounter - Gil Pastor - 03/23/2024 3:33 PM EST Note Date & Type Note Facility 12-17-2024 Discharge summary [facility] 12-17-2024 Radiology Diagnostic study note [facility] Imaging Services [address] [place] [id number] Spine Cervical without Contras MR#: [id number] Acct: [id number] Name: RAMOS PADRON Rep #: [id number] : 1945 F 79 From: Reji Joe MD PCP: Dr. Dmitry Burk MD Status: REG ER Study:Spine Cervical without Contras Date of Exam: 12/17/24 Exam# [id number] Ordering Dr: John Webb DO PROCEDURE: SPINE CERVICAL WITHOUT CONTRAS 12/17/2024 REASON FOR EXAM: INJURY/PAIN TECHNIQUE: Procedure Code: CTSPC Modality: CT Procedure: SPINE CERVICAL WITHOUT CONTRAS Coronal and Sagittal reconstruction series were provided. One or more dose reduction techniques were used (e.g., Automated exposure control, adjustment of the mA and/or kV according to patient size, use of iterative reconstruction technique. RADIATION DOSE SUMMARY: DLP: 1145 mGycm COMPARISON: None FINDINGS: There is loss of the lordosis. Visualized skull base and craniocervical junction demonstrate no evidence of fracture or dislocation. There is no evidence of cervical spine fracture. Alignment is normal. No soft tissue abnormality is seen. Disc spaces are preserved. Facets are intact. There is a 0.4 cm blastic focus in theright lateral mass of C1. There is a 0.6 cm blastic focus in the right lateral mass of C1. There is a 0.8 by 0.8 cm blasticlesion in the anterior C3 vertebral body. Visualized portions of the lung apices demonstrate no evidence of pneumothorax. Vascular calcifications are noted. C2-C3: There is no significant disc protrusion. There is no lateral recess or foraminal stenosis. There is no central canal stenosis. C3-C4: There is no significant disc protrusion. There is no lateral recess or foraminal stenosis. There is no central canal stenosis. C4-C5: There is no significant disc protrusion. There is no lateral recess or foraminal stenosis. There is no central canal stenosis. C5-C6: There is no significant disc protrusion. There is no lateral recess or foraminal stenosis. There is no central canal stenosis. C6-C7: There is no significant disc protrusion. There is no lateral recess or foraminal stenosis. There is no central canal stenosis. C7-T1: There is no significant disc protrusion. There is no lateral recess or foraminal stenosis. There is no central canal stenosis. CT/Spine Cervical without Contras IMPRESSION: There is loss of the lordosis. There is a 0.4 cm blastic focus in the right lateral mass of C1. There is a 0.6 cm blastic focus in the right lateral mass of C1. There is a 0.8 by 0.8 cm blastic lesion in the anterior C3 vertebral body. Consider whole-body bone scan for further characterization. There is no visible acute traumatic injury. Reading Location: [facility] CC: Dr. Dmitry Burk MD; Dr. John Webb DO ~ [place]: Signed [facility] 12-17-2024 Radiology Diagnostic study note [facility] Imaging Services [address] [place] [address] [id number] Brain/Head without Contrast MR#: [id number] Acct: [id number] Name: RAMOS PADRON Rep #: [id number] : 1945 F 79 From: Leonie Moncada MD PCP: Dr. Dmitry Burk MD Status: REG ER Study:Brain/Head without Contrast Date of Exa m: 12/17/24 Exam# [id number] Ordering Dr: John Webb DO PROCEDURE: BRAIN/HEAD WITHOUT CONTRAST 12/17/2024 REASON FOR EXAM: INJURY/PAIN Parkinson's disease. Fall. Laceration to the left eye. Neck and back pain. TECHNIQUE: Procedure Code: CTBR Modality: CT Procedure: BRAIN/HEAD WITHOUT CONTRAST Coronal and Sagittal reconstruction series were provided. One or more dose reduction techniques were used (e.g., Automated exposure control, adjustment of the mA and/or kV according to patient size, use of iterative reconstruction technique. RADIATION DOSE SUMMARY: CTDlvol: <50 mGy DLP: 779 mGycm COMPARISON: None FINDINGS: Brain: There is no evidence of hemorrhage, acute ischemia or mass. No extra-axial fluid collection, midline shift or mass effect. Low-density is seen in the periventricular white matter and deep white matter. CSF Spaces: Moderate generalized cerebral atrophy Sinuses/Mastoids: Clear Bones: Fractures of the nasal bones are shown bilaterally with slight angulationright laterally but no displacement. CT/Brain/Head without Contrast IMPRESSION: 1. Nasal bone fractures bilaterally. Slight angulation to the right but no displacement. 2. No acute intracranial process. Chronic microvascular ischemic changes and volume loss. Reading Location: [id number] CC: Dr. Dmitry Burk MD; Dr. John Webb DO ~ [place]: Signed [facility] 06-18-2024 Note HNO ID: [id number] Author: JULIET CHANEL MD Service: ? Author Type: Physician Type: Progress Notes Filed: 06/18/2024 12:37 Note Text: [facility] - FOLLOW UP EVALUATION Primary Movement Disorders Neurologist: Juliet Chanel MD Primary Movement Disorders NEISHA: Not yet assigned Recording using EditGrid software for draft documentation of the visit was discussed with the patient/authorized inbound call center representative; all questions welcomed and answered. Patient/authorized inbound call center representative agreed to proceed Dmitry Burk MD [address] [facility] [address] Dear Dmitry Burk MD: I had the pleasure of seeing Ms. Padron for follow-up today. As you know she is a 79 year old right-handed female with a history of PSP since 2019. She is seen with her . Subjective Previous Plan- 01/20/2024 Visit: Try increasing Sinemet up to 2 tabs 3 times a day. Continue exercise - Interval History: Ramos is a 79-year-old female with a history of progressive supranuclear palsy (PSP) presenting for follow-up. She is accompanied by her , who provides additional history. Ramos has been experiencing frequent falls, with a recent significant fall occurring on February 05, resulting in a shoulder separation. She was initially treated in the ER and subsequently admitted for rehabilitation. That initial ECF was not working out she she moved to [facility] in [place] and will remain there indefinitely. Her reports that she cannot walk without assistance and often attempts to stand or walk independently, leading to falls. He notes that she is teachable but stubborn, often realizing her limitations only after falling. Despite using pads around her chair and bed, he is unsure if she remembers to use the emergency button at night. She is currently in PT 3 days a week. Her visits her daily and reports that the staff administers her medications, including carbidopa-levodopa, three times a day on time. He observes that she has good days and bad days, which he can usually discern by looking at her. He does not report any side effects from the medication. She experiences difficulty swallowing both liquids and solids, often choking due to eating too quickly. She is on a regular diet with thin liquids and has been evaluated by speech therapy. She also reports double vision and uses prism lenses; her plans to schedule an eye appointment for her. She does not endorse hallucinations, depression, or anxiety. Her describes her as not being a social butterfly and notes that she does not usually participate in activities at the facility, although she does enjoy bingo. He takes her out weekly for meals at the facility's bistro or brings her food from outside. Movement Disorders Medications Schedule - as of the start of the visit: Medications Sinemet 25/100 2 2 2 Prior Anti-Parkinson Therapies Carbidopa/Levodopa Questionnaires: In addition, the following areas that may be affected by abnormal involuntary movements were evaluated: Daily activities Difficulties with eating: Yes (mild) Difficulties in dressing: Yes (slight) Difficulties with hygiene activities: Yes (slight) Difficulties with handwriting: Yes (mild) Difficulties with doing hobbies and other activities: Yes (slight) Difficulties turning in bed: Yes (slight) Difficulties getting out of bed, car or chair: Yes (slight) Tremors/Gait/Balance Shaking or tremors: Yes (slight) Walking and balance problems: Yes (moderate) Number of falls in the Last Month: 1 Gait freezing: Yes (slight) Autonomic/Pain Lightheadeness on standing: Yes (mild) Urinary problems: 0 (none) Constipation problems: Yes (mild) Pain and other sensations: Yes (slight) Speech/Swallowing Speech problems: Yes (mild) Drooling: Yes (slight) Chewing and swallowing problems: both liquids and solids. eats fast Sleep/Fatigue Sleep problems: Yes (slight) Daytime sleepiness: Yes (mild) Fatigue: Yes (mild) Mood/Behavior Depression: PHQ-9 Score: 11 usually representing moderate (10-14) depression. Anxiety: CARMEN-7 Total Score: 1 usually representing no significant (0-4) anxiety. Finally, the following table shows the patient's overall global physical and mental health using the PROMIS scale: PROMIS-10 Flowsheet Row Office Visit from 06/18/2024 in Neurology Office Visit from 01/20/2024 in Neurology Global Physical Health T Score 47.7 37.4 Global Mental Health T Score -- 36.3 0-10 Standard Pain Scale 4 3 *PROMIS-10 scoring scale: mean = 50, over 50 is above average, under 50 is below average ALLERGIES No Known Allergies Current Outpatient Medications Medication Sig atorvastatin (LIPITOR) 20 mg tablet Take by mouth. bisacodyl (DULCOLAX) 10 mg supp by RECTAL route. Trospium (SANCTURA SR) 60 mg cp24 Take 1 capsule by mouth once daily. mineral oil (FLEET MINERAL OIL) enema 133 (more content not included)... [facility] 06-18-2024 History of Present illness Narrative [facility] - FOLLOW UP EVALUATION Primary Movement Disorders Neurologist: Juliet Chanel MD Primary Movement Disorders NEISHA: Not yet assigned Recording using ambient AI software for draft documentation of the visit was discussed with the patient/authorized inbound call center representative; all questions welcomed and answered. Patient/authorized inbound call center representative agreed to proceed MD [address] [place] [facility] [address] [facility] [address] Dear Dmitry Burk MD: I had the pleasure of seeing Ms. Padron for follow-up today. As you know she is a 79 year old right-handed female with a history of PSP since 2019. She is seen with her . Subjective Previous Plan- 01/20/2024 Visit: Try increasing Sinemet up to 2 tabs 3 times a day. Continue exercise - Interval History: Ramos is a 79-year-old female with a history of progressive supranuclear palsy (PSP) presenting for follow-up. She is accompanied by her , who provides additional history. Ramos has been experiencing frequent falls, with a recent significant fall occurring on February 05, resulting in a shoulder separation. She was initially treated in the ER and subsequently admitted for rehabilitation. That initial ECF was not working out she she moved to [facility] in [place] and will remain there indefinitely. Her reports that she cannot walk without assistance and often attempts to stand or walk independently, leading to falls. He notes that she is teachable but stubborn, often realizing her limitations only after falling. Despite using pads around her chair and bed, he is unsure if she remembers to use the emergency button at night. She is currently in PT 3 days a week. Her visits her daily and reports that the staff administers her medications, including carbidopa-levodopa, three times a day on time. He observes that she has good days and bad days, which he can usually discern by looking at her. He does not report any side effects from the medication. She experiences difficulty swallowing both liquids and solids, often choking due to eating too quickly. She is on a regular diet with thin liquids and has been evaluated by speech therapy. She also reports double vision and uses prism lenses; her plans to schedule an eye appointment for her. She does not endorse hallucinations, depression, or anxiety. Her describes her as not being a social butterfly and notes that she does not usually participate in activities at the facility, although she does enjoy bingo. He takes her out weekly for meals at the facility's bistro or brings her food from outside. Movement Disorders Medications Schedule - as of the start of the visit: Medications Sinemet 25/100 2 2 2 Prior Anti-Parkinson Therapies Carbidopa/Levodopa Questionnaires: In addition, the following areas that may be affected by abnormal involuntary movements were evaluated: Daily activities Difficulties with eating: Yes (mild) Difficulties in dressing: Yes (slight) Difficulties with hygiene activities: Yes (slight) Difficulties with handwriting: Yes (mild) Difficulties with doing hobbies and other activities: Yes (slight) Difficulties turning in bed: Yes (slight) Difficulties getting out of bed, car or chair: Yes (slight) Tremors/Gait/Balance Shaking or tremors: Yes (slight) Walking and balance problems: Yes (moderate) Number of falls in the Last Month: 1 Gait freezing: Yes (slight) Autonomic/Pain Lightheadeness on standing: Yes (mild) Urinary problems: 0 (none) Constipation problems: Yes (mild) Pain and other sensations: Yes (slight) Speech/Swallowing Speech problems: Yes (mild) Drooling: Yes (slight) Chewing and swallowing problems: both liquids and solids. eats fast Sleep/Fatigue Sleep problems: Yes (slight) Daytime sleepiness: Yes (mild) Fatigue: Yes (mild) Mood/Behavior Depression: PHQ-9 Score: 11 usually representing moderate (10-14) depression. Anxiety: CARMEN-7 Total Score: 1 usually representing no significant (0-4) anxiety. Finally, the following table shows the patient's overall global physical and mental health using the PROMIS scale: PROMIS-10 Flowsheet Row Office Visit from 06/18/2024 in Neurology Office Visit from 01/20/2024 in Neurology Global Physical Health T Score 47.7 37.4 Global Mental Health T Score -- 36.3 0-10 Standard Pain Scale 4 3 *PROMIS-10 scoring scale: mean = 50, over 50 is above average, under 50 is below average ALLERGIES No Known Allergies Current Outpatient Medications Medication Sig atorvastatin (LIPITOR) 20 mg tablet Take by mouth. bisacodyl (DULCOLAX) 10 mg supp by RECTAL route. Trospium (SANCTURA SR) 60 mg cp24 Take 1 capsule by mouth once daily. mineral oil (FLEET MINERAL OIL) enema 133 mL by RECTAL route one time only. PRN GUAIFENESIN ORAL Take 10 mL by mouth as needed. magnesium hydroxide (MILK OF MAGNESIA) 400 mg/5 mL suspension Take 30 mL by mouth once daily as needed for constipation. ondansetron (ZOFRAN) 4 mg tablet Take by mouth every 6 hours as needed for nausea/vomiting. carbidopa-levodopa (SINEMET) 25-100 mg per tablet Take 2 tablets by mouth three times a day. acetaminophen 650 mg CR tablet 1,300 mg. (Patient taking differently: Take 325 mg by mouth. 2 tab every 4 hrs PRN) Cholecalciferol, Vitamin D3, 50 mcg (2,000 unit) cap Take by mouth as directed. ibuprofen (MOTRIN) 200 mg tablet Take 200 mg by mouth every 6 hours as needed. (Patient not taking: Reported on 06/18/2024) rosuvastatin (CRESTOR) 10 mg tablet Take 1 tablet by mouth once daily. (Patient not taking: Reported on 06/18/2024) No current facility-administered medications for this visit. Objective Vital Signs: BP 100/67 (BP Site: Left Arm, BP Position: Sitting, BP Cuff Size: Regular Adult) Pulse 88 Wt 59 kg (130 lb 1.1 oz) SpO2 96% BMI 23.79 kg/m Orthostatic Vitals: None for this encounter Weight: 59 kg (130 lb 1.1 oz) No LMP recorded. Patient is postmenopausal. Body mass index is 23.79 kg/m . Neurological Exam Mental Status Awake and alert. Language is fluent with no aphasia. Cranial Nerves CN III, IV, : Limited vertical eye movements. Hypometric saccades. Choppy pursuit. Movement Disorders Scales Performed: MDS-UPDRS Motor subscale condition of exam Medication Off/On/Naiive ON Time of UPDRS Time of Last Medication Last Medication Taken DBS Right DBS Left MDS-UPDRS Motor subscale scores Speech 3-Moderate. Speech is difficult to understand to the point that some, but not most sentences are poorly understood. Facial Expression 2-Mild. In addition to decreased eye-blink frequency, Masked facies present in the lower face as well, namely fewer movements around the mouth, such as less spontaneous smiling, but lips not parted. Rigidity Neck 0-Normal. No rigidity. Rigidity Right Upper Extremity 0-Normal. No rigidity. Rigidity Left Upper Extremity 0-Normal. No rigidity. Rigidity Right Lower Extremity 0-Normal. No rigidity. Rigidity Left Lower Extremity 0-Normal. No rigidity. Finger Taps Right 3-Moderate. a) more than 5 interruptions during tapping or at least one longer arrest (freeze) in ongoing movement, b) moderate slowing, c) the amplitude decrements starting after the 1st tap. Finger Taps Left 3-Moderate. a) more than 5 interruptions during tapping or at least one longer arrest (freeze) in ongoing movement, b) moderate slowing, c) the amplitude decrements starting after the 1st tap. Hand Movements Right 1-Slight. a) the regular rhythm is broken with one or two interruptions or hesitations of the movement, b) slight slowing, c) the amplitude decrements near the end of the task. Hand Movements Left 0-Normal. No problem. Arm Movements Right 1-Slight. a) the regular rhythm is broken with one or two interruptions or hesitations of the movement, b) slight slowing, c) the amplitude decrements near the end of the sequence. Arm Movements Left 1-Slight. a) the regular rhythm is broken with one or two interruptions or hesitations of the movement, b) slight slowing, c) the amplitude decrements near the end of the sequence. Toe Taps Right 3-Moderate. a) more than 5 interruptions during the tapping movements or at least one longer arrest (freeze) in ongoing movement, b) moderate slowing, c) the amplitude decrements starting after the first tap. Toe Taps Left 3-Moderate. a) more than 5 interruptions during the tapping movements or at least one longer arrest (freeze) in ongoing movement, b) moderate slowing, c) the amplitude decrements starting after the first tap. Leg Agility Right 0-Normal. No problems. Leg Agility Left 0-Normal. No problems. Arise From Chair Gait Gait Freezing Posture Stability (deferred) Posture Body Bradykinesia Postural Tremor Hand Right 0-Normal. No tremor. Postural Tremor Hand Left 0-Normal. No tremor. Kinetic Tremor Right 0-Normal. No tremor. Kinetic Tremor Left 0-Normal. No tremor. Rest Tremor Amplitude Right Upper Extremity 0-Normal. No tremor. Rest Tremor Amplitude Left Upper Extremity 0-Normal. No tremor. Rest Tremor Amplitude Right Lower Extremity 0-Normal. No tremor. Rest Tremor Amplitude Left Lower Extremity 0-Normal. No tremor. Rest Tremor Amplitude Lip/Jaw 0-Normal. No tremor. Rest Tremor Constancy 0-Normal. No tremor. MDS-UPDRS Motor subscale totals Left Total 7 Right Total 8 Midline Total Tremor Total / 10 0 PIGD Total / 3 Overall Total Change Better/Worse % Change Compared to Last Filed Total Pertinent Studies Brain MRI 08/12/22 There is moderate cerebral atrophy with widening of the extra-axial spaces and ventricular dilatation. There is a limited number of small white matter hyperintensities, distributed throughout the deep white matter tracts of the cerebral hemispheres, consistent with mild chronic white matter ischemic changes. There is no evidence for recent intracranial ischemia or other cause of cytotoxic edema on diffusion-weighted imaging. Normal T2 images of the brain without demonstrated susceptibility artifact. There is no demonstrated hemosiderin staining. Midbrain iron stores are preserved. Normal bilateral basal ganglia. Normal thalami. There is no extra-axial fluid accumulation. Normal flow voids within the major intracranial circulation suggesting patency by spin-echo criteria. Normal sella turcica, pituitary gland, infundibular stalk, optic chiasm and hypothalamus. Normal tectal plate and pineal gland. Normal midbrain, felix and medulla. Normal cerebellum. Normal basal cisterns. Normal bilateral temporal bones. Normal bilateral internal auditory canals. No demonstrated orbital abnormality, within the constraints of the routine brain study. Normal visualized paranasal sinuses. Normal calvarium and skull base. Normal visualized soft tissue structures. Normal visualized upper cervical spine. Impression: Involutional changes of the brain, as described above. Assessment and Plan: Assessment Ms. Padron is a right-handed 79 year old year old female with likely PSP. Symptoms started with falls around 2019. History and exam are consistent with PSP. She had not been noted to consistently improve with Sinemet up to 250 mg per dose, no change when the dose was decreased. However, her fall frequency greatly increased when Sinemet was tapered off. The following are the current problems noted and addressed during this visit: Psp (progressive supranuclear palsy) (formerly [facility]) Plan 06/18/2024 Visit: 1. PSP (progressive supranuclear palsy) ([facility]) (G23.1) - Patient exhibits significant balance issues and frequent falls, requiring assistance for ambulation. Currently on carbidopa-levodopa 25-100 mg, two tablets TID, with no reported side effects such as orthostatic hypotension or excessive somnolence. It is unclear if there is benefit but will continue since no side effects. - Continues to participate in physical therapy - Reports dysphagia with both solids and liquids; evaluated by speech therapy in mid-May, currently on a regular diet with thin liquids. - Scheduled for an ophthalmology appointment to assess for potential updates to prism lenses. - Follow-up in 6 months to monitor disease progression and adjust treatment as necessary. Patient's perception of importance for healthcare provider to let them know of research trials for which they may be eligible? Very Important Interested in clinical research? Not discussed Instructions: Continue with your one-on-one physical therapy sessions Continue taking your current medications exactly as prescribed; no changes were made today. will schedule an appointment with your eye doctor for diplopia Plan to return for a follow-up visit in approximately six months. Updated Movement Disorders Medication Schedule: Medications Sinemet 25/100 2 2 2 Return at or around: 12/18/24 Level of service : 93415 ( 30-39 min). Time spent 33 min on the day of service, which included preparing to see the patient, [id number] patient care, completing clinical documentation, performing a medically appropriate examination, and counseling and educating the patient/family/caregiver. Thank you for allowing me to be part of the clinical care of this patient! I look forward to continued participation in the patient s care with you. Please do not hesitate to call with any questions. Sincerely, Juliet Chanel MD documented in this encounter [facility] 06-18-2024 Instructions Juliet Chanel MD - 06/18/2024 11:01 AM EDT It was a pleasure to see you today. We addressed the following diagnoses: Psp (progressive supranuclear palsy) ([facility]) My recommendations are as follows: Continue with your one-on-one physical therapy sessions Continue taking your current medications exactly as prescribed; no changes were made today. will schedule an appointment with your eye doctor for diplopia Plan to return for a follow-up visit in approximately six months. Movement Disorders Medication Schedule: Medications Sinemet 25/100 2 2 2 Return at or around: 12/18/24 If there are any concerns before your next visit, please call or you can send a message through [employer]. You can also now schedule and select appointments through [employer]. Juliet Chanel MD documented in this encounter [facility] 03-23-2024 Telephone encounter Note Lvm x3 to r/s with provider due to manager shipping not taking supplement [facility] 03-23-2024 Miscellaneous Notes Lvm x3 to r/s with provider due to manager shipping not taking supplement documented in this encounter [facility] 01-20-2024 Note HNO ID: [id number] Author: JULIET CHANEL MD Service: ? Author Type: Physician Type: Progress Notes Filed: 01/20/2024 12:38 Note Text: [facility] - FOLLOW UP EVALUATION Dmitry Burk MD [address] [address] [facility] [address] I had the pleasure of seeing Ms. Padron for follow up today. She is a 78 year old right-handed female with a history of PSP since 2019. She is seen with her . Subjective Previous Plan-09/16/2023 Visit: Consider seeing urology - Try increasing the carbidopa-levodopa and see if the higher dose is helpful. Increase to 1.5 tab 3 times a day for 2 weeks and then increase to 2 tabs 3 times a day for at least 2 weeks. Continue with the dose that seems best, 1-2 tabs 3 times a day - Stop ropinirole - I'll ask someone form the research team to contact you about the study. Interval History: Changes since last visit over the past few months. Good and bad times. More bad than before. More forgetful. More imbalance. is worried about her decision making. She has nearly given out SS number to people wanting to send her hundreds of dollars of DME supplies. She had control of finances. Didn't pay the electric bill and got turn off notice. Didn't pay the credit card for 2 months. Doesn't answer her phone or check voice mail. No land line. is taking over everything financial. Has everything covered with the bank. Her 401k is all that is left. Asking for letter stating she has cognitive impairment to get POA. Not pursuing guardianship. She indicates she agrees with everything he is doing. Had Botox in her bladder a couple of weeks ago. Has had an infection which was treated. Saw PCP and had blood work about a month ago. Falling about every day. Day care 3 days per week. Exercise class one day per week at [facility]. If left alone she will play on her phone and get no physical activity. No depth perception. Parkinson's Medication Schedule - as of the start of the visit: Medications Sinemet 25/100 1.5 1.5 1.5 Prior Anti-Parkinson Therapies Carbidopa/Levodopa Questionnaires In addition, the following areas that may be affected by abnormal involuntary movements were evaluated: Daily activities Difficulties with eatin (none) Difficulties in dressing: Yes (slight) Difficulties with hygiene activities: Difficulties with handwriting: Yes (mild) Difficulties with doing hobbies and other activities: Difficulties turning in bed: Yes (mild) Difficulties getting out of bed, car or chair: Yes (moderate) Tremors/Gait/Balance Shaking or tremors: no Walking and balance problems: yes Number of falls in the Last Month: 30 Gait freezing: Yes (mild) Autonomic/Pain Lightheadeness on standing: no Urinary problems: Yes (moderate) Constipation problems: 0 (none) Pain and other sensations: Speech/Swallowing Speech problems: Yes (mild) Drooling: Yes (mild) Chewing and swallowing problems: 0 (none) Sleep/Fatigue Sleep problems: Yes (mild) Daytime sleepiness: Yes (mild) Fatigue: Yes (mild) Mood/Behavior Depression: PHQ-9 Score: 8 usually representing mild (5-9) depression. Anxiety: Finally, the following table shows the patient's overall global physical and mental health using the PROMIS scale: PROMIS-10 Flowsheet Row Office Visit from 01/20/2024 in Neurology Office Visit from 05/15/2023 in Neurology Global Physical Health T Score 37.4 44.9 Global Mental Health T Score 36.3 41.1 0-10 Standard Pain Scale 3 3 *PROMIS-10 scoring scale: mean = 50, over 50 is above average, under 50 is below average In addition, the following Parkinson Lifestyle-associated features were evaluated: Conditions Prior to Dx: Depression: No Anxiety: No Melanoma: No Constipation: No Yelling: No Head Trauma: No Habits/exposures Prior to Dx Smoking: Yes (but quit) Caffeinated coffee (1-cup+): Yes (but quit) Caffeinated soda/tea (2 cups+): Alcohol (1 bottle/shot/glass+): No Exercise (3x/wk+): Yes (and still do) Ibuprofen use (1x/wk+): Pesticides: No Welding: No ALLERGIES No Known Allergies Current Outpatient Medications Medication Sig acetaminophen 650 mg CR tablet 1,300 mg. Cholecalciferol, Vitamin D3, 50 mcg (2,000 unit) cap Take by mouth as directed. ibuprofen (MOTRIN) 200 mg tablet Take 200 mg by mouth every 6 hours as needed. rosuvastatin (CRESTOR) 10 mg tablet Take 1 tablet by mouth once daily. carbidopa-levodopa (SINEMET) 25-100 mg per tablet Take 2 tablets by mouth three times a day. No current facility-administered medications for this visit. Objective Vital Signs: BP 127/79 (BP Site: Left Arm, BP Position: Sitting, BP Cuff Size: Regular Adult) Pulse 83 Wt 63.5 kg (139 lb 15.9 oz) SpO2 98% BMI 25.60 kg/m? Orthostatic Vitals: None for this encounter Weight: 63.5 kg (139 lb 15.9 oz) No LMP recorded. Patient is postmenopausal. Body mass index is 25. (more content not included)... [facility] 01-20-2024 History of Present illness Narrative [facility] - FOLLOW UP EVALUATION Dmitry Burk MD [address] [address] [facility] [id number] I had the pleasure of seeing Ms. Padron for follow up today. She is a 78 year old right-handed female with a history of PSP since 2019. She is seen with her . Subjective Previous Plan-09/16/2023 Visit: Consider seeing urology - Try increasing the carbidopa-levodopa and see if the higher dose is helpful. Increase to 1.5 tab 3 times a day for 2 weeks and then increase to 2 tabs 3 times a day for at least 2 weeks. Continue with the dose that seems best, 1-2 tabs 3 times a day - Stop ropinirole - I'll ask someone form the research team to contact you about the study. Interval History: Changes since last visit over the past few months. Good and bad times. More bad than before. More forgetful. More imbalance. is worried about her decision making. She has nearly given out SS number to people wanting to send her hundreds of dollars of DME supplies. She had control of finances. Didn't pay the electric bill and got turn off notice. Didn't pay the credit card for 2 months. Doesn't answer her phone or check voice mail. No land line. is taking over everything financial. Has everything covered with the bank. Her 401k is all that is left. Asking for letter stating she has cognitive impairment to get POA. Not pursuing guardianship. She indicates she agrees with everything he is doing. Had Botox in her bladder a couple of weeks ago. Has had an infection which was treated. Saw PCP and had blood work about a month ago. Falling about every day. Day care 3 days per week. Exercise class one day per week at [facility]. If left alone she will play on her phone and get no physical activity. No depth perception. Parkinson's Medication Schedule - as of the start of the visit: Medications Sinemet 25/100 1.5 1.5 1.5 Prior Anti-Parkinson Therapies Carbidopa/Levodopa Questionnaires In addition, the following areas that may be affected by abnormal involuntary movements were evaluated: Daily activities Difficulties with eatin (none) Difficulties in dressing: Yes (slight) Difficulties with hygiene activities: Difficulties with handwriting: Yes (mild) Difficulties with doing hobbies and other activities: Difficulties turning in bed: Yes (mild) Difficulties getting out of bed, car or chair: Yes (moderate) Tremors/Gait/Balance Shaking or tremors: no Walking and balance problems: yes Number of falls in the Last Month: 30 Gait freezing: Yes (mild) Autonomic/Pain Lightheadeness on standing: no Urinary problems: Yes (moderate) Constipation problems: 0 (none) Pain and other sensations: Speech/Swallowing Speech problems: Yes (mild) Drooling: Yes (mild) Chewing and swallowing problems: 0 (none) Sleep/Fatigue Sleep problems: Yes (mild) Daytime sleepiness: Yes (mild) Fatigue: Yes (mild) Mood/Behavior Depression: PHQ-9 Score: 8 usually representing mild (5-9) depression. Anxiety: Finally, the following table shows the patient's overall global physical and mental health using the PROMIS scale: PROMIS-10 Flowsheet Row Office Visit from 01/20/2024 in Neurology Office Visit from 05/15/2023 in Neurology Global Physical Health T Score 37.4 44.9 Global Mental Health T Score 36.3 41.1 0-10 Standard Pain Scale 3 3 *PROMIS-10 scoring scale: mean = 50, over 50 is above average, under 50 is below average In addition, the following Parkinson Lifestyle-associated features were evaluated: Conditions Prior to Dx: Depression: No Anxiety: No Melanoma: No Constipation: No Yelling: No Head Trauma: No Habits/exposures Prior to Dx Smoking: Yes (but quit) Caffeinated coffee (1-cup+): Yes (but quit) Caffeinated soda/tea (2 cups+): Alcohol (1 bottle/shot/glass+): No Exercise (3x/wk+): Yes (and still do) Ibuprofen use (1x/wk+): Pesticides: No Welding: No ALLERGIES No Known Allergies Current Outpatient Medications Medication Sig acetaminophen 650 mg CR tablet 1,300 mg. Cholecalciferol, Vitamin D3, 50 mcg (2,000 unit) cap Take by mouth as directed. ibuprofen (MOTRIN) 200 mg tablet Take 200 mg by mouth every 6 hours as needed. rosuvastatin (CRESTOR) 10 mg tablet Take 1 tablet by mouth once daily. carbidopa-levodopa (SINEMET) 25-100 mg per tablet Take 2 tablets by mouth three times a day. No current facility-administered medications for this visit. Objective Vital Signs: BP 127/79 (BP Site: Left Arm, BP Position: Sitting, BP Cuff Size: Regular Adult) Pulse 83 Wt 63.5 kg (139 lb 15.9 oz) SpO2 98% BMI 25.60 kg/m Orthostatic Vitals: None for this encounter Weight: 63.5 kg (139 lb 15.9 oz) No LMP recorded. Patient is postmenopausal. Body mass index is 25.6 kg/m . General Physical Examination: General: Awake, alert, interactive, no acute distress, good nutritional status, normal development, well-kept General Neurological Examination: Neurological Exam Mental Status Awake and alert. Language is fluent with no aphasia. Cranial Nerves CN III, IV, : Abnormal extraocular movements: Limited vertical eye movements. Hypometric saccades. Choppy pursuit. Movement Disorders Scales Performed: MDS-UPDRS Motor subscale condition of exam Medication Off/On/Naiive ON Time of UPDRS Time of Last Medication Last Medication Taken DBS Right DBS Left MDS-UPDRS Motor subscale scores Speech 3-Moderate. Speech is difficult to understand to the point that some, but not most sentences are poorly understood. Facial Expression 2-Mild. In addition to decreased eye-blink frequency, Masked facies present in the lower face as well, namely fewer movements around the mouth, such as less spontaneous smiling, but lips not parted. Rigidity Neck 0-Normal. No rigidity. Rigidity Right Upper Extremity 0-Normal. No rigidity. Rigidity Left Upper Extremity 0-Normal. No rigidity. Rigidity Right Lower Extremity 0-Normal. No rigidity. Rigidity Left Lower Extremity 0-Normal. No rigidity. Finger Taps Right 1-Slight. a) the regular rhythm is broken with one or two interruptions or hesitations of the tapping movement, b) slight slowing, c) the amplitude decrements near the end of the 10 taps. Finger Taps Left 1-Slight. a) the regular rhythm is broken with one or two interruptions or hesitations of the tapping movement, b) slight slowing, c) the amplitude decrements near the end of the 10 taps. Hand Movements Right 1-Slight. a) the regular rhythm is broken with one or two interruptions or hesitations of the movement, b) slight slowing, c) the amplitude decrements near the end of the task. Hand Movements Left 0-Normal. No problem. Arm Movements Right 2-Mild. a) 3 to 5 interruptions during the movements, b) mild slowing, c) the amplitude decrements midway in the sequence. Arm Movements Left 2-Mild. a) 3 to 5 interruptions during the movements, b) mild slowing, c) the amplitude decrements midway in the sequence. Toe Taps Right 1-Slight. a) the regular rhythm is broken with one or two interruptions or hesitations of the tapping movement, b) slight slowing, c) the amplitude decrements near the end of the ten taps. Toe Taps Left 2-Mild. a) 3 to 5 interruptions during the tapping movements, b) mild slowing, c) the amplitude decrements midway in the task. Leg Agility Right 0-Normal. No problems. Leg Agility Left 0-Normal. No problems. Arise From Chair 2-Mild. Pushes self up from arms of chair without difficulty. Gait 3-Moderate. Requires an assistance device for safe walking (walking stick, walker) but not a person. Gait Freezing 0-Normal. No freezing. Posture Stability 0-Normal. No problems: recovers with one or two steps. (deferred) Posture 1-Slight. Not quite erect, but posture could be normal for older person. Body Bradykinesia 2-Mild. Mild global slowness and poverty of spontaneous movements. Postural Tremor Hand Right 0-Normal. No tremor. Postural Tremor Hand Left 0-Normal. No tremor. Kinetic Tremor Right 0-Normal. No tremor. Kinetic Tremor Left 0-Normal. No tremor. Rest Tremor Amplitude Right Upper Extremity 0-Normal. No tremor. Rest Tremor Amplitude Left Upper Extremity 0-Normal. No tremor. Rest Tremor Amplitude Right Lower Extremity 0-Normal. No tremor. Rest Tremor Amplitude Left Lower Extremity 0-Normal. No tremor. Rest Tremor Amplitude Lip/Jaw 0-Normal. No tremor. Rest Tremor Constancy 0-Normal. No tremor. MDS-UPDRS Motor subscale totals Left Total 5 Right Total 5 Midline Total 13 Tremor Total / 10 0 PIGD Total / 3 3 Overall Total 23 Change Better/Worse WORSE % Change Compared to Last Filed Total (!) 27.77 Pertinent Studies Brain MRI 08/12/22 There is moderate cerebral atrophy with widening of the extra-axial spaces and ventricular dilatation. There is a limited number of small white matter hyperintensities, distributed throughout the deep white matter tracts of the cerebral hemispheres, consistent with mild chronic white matter ischemic changes. There is no evidence for recent intracranial ischemia or other cause of cytotoxic edema on diffusion-weighted imaging. Normal T2 images of the brain without demonstrated susceptibility artifact. There is no demonstrated hemosiderin staining. Midbrain iron stores are preserved. Normal bilateral basal ganglia. Normal thalami. There is no extra-axial fluid accumulation. Normal flow voids within the major intracranial circulation suggesting patency by spin-echo criteria. Normal sella turcica, pituitary gland, infundibular stalk, optic chiasm and hypothalamus. Normal tectal plate and pineal gland. Normal midbrain, felix and medulla. Normal cerebellum. Normal basal cisterns. Normal bilateral temporal bones. Normal bilateral internal auditory canals. No demonstrated orbital abnormality, within the constraints of the routine brain study. Normal visualized paranasal sinuses. Normal calvarium and skull base. Normal visualized soft tissue structures. Normal visualized upper cervical spine. Impression: Involutional changes of the brain, as described above. Assessment and Plan: Assessment Ms. Padron is a right-handed 78 year old year old female with likely PSP. Symptoms started with falls around 2019. History and exam are consistent with PSP. She had not been noted to consistently improve with Sinemet up to 250 mg per dose, no change when the dose was decreased. However, her fall frequency greatly increased when Sinemet was tapered off. She will try increasing Sinemet to 2 tabs 3 times a day for 1-2 weeks and see if any improvement. Seemingly faster progression than previous. Could be progression of disease vs exacerbation of neurological illness by acute medical condition. Reasonable to rule out reversible causes with basic blood work. States seen by PCP about 1 month ago and blood work was done but no results are available. Will copy PCP on note to ensure basic work-up has been done. She sees urology and has been checked and treated for UTI. has taken over finances and bill paying after she tried to sign up for DME supplies she didn't need, didn't pay credit card or utilities. Letter given stating diagnosis and presence of cognitive and communication impairment. We had discussed her participation in PSP clinical trial but unlikely to pass the [employer] requirement. The following are the current problems noted and addressed during this visit: Psp (progressive supranuclear palsy) (formerly [facility]) Plan 01/20/2024 Visit: Try increasing Sinemet up to 2 tabs 3 times a day. Continue exercise - Updated Movement Disorders Medication Schedule: Medications Sinemet 25/100 1-2 1-2 1-2 Return at or around: 06/19/24 Level of service : 20333 (40-68 min). Time spent 51 min on the day of service, which included preparing to see the patient, [id number] patient care, completing clinical documentation, performing a medically appropriate examination, counseling and educating the patient/family/caregiver, and ordering medications, tests, or procedures. Thank you for allowing me to be part of the clinical care of this patient! I look forward to continued participation in the patient s care with you. Please do not hesitate to call with any questions. Sincerely, Juliet Chanel MD documented in this encounter [facility] 01-20-2024 Instructions Juliet Chanel MD - 01/20/2024 11:03 AM EST It was a pleasure to see you today. We addressed the following diagnoses: Psp (progressive supranuclear palsy) ([facility]) My recommendations are as follows: Try increasing Sinemet up to 2 tabs 3 times a day. Continue exercise - Movement Disorders Medication Schedule: Medications Sinemet 25/100 1-2 1-2 1-2 No follow-ups on file. If there are any concerns before your next visit, please call or you can send a message through [employer]. You can also now schedule and select appointments through [employer]. Juliet Chanel MD documented in this encounter [facility] 11-08-2023 Note HNO ID: [id number] Author: JESENIA JAMES, PT, DPT Service: ? Author Type: Physical Therapist Type: Progress Notes Filed: 11/08/2023 14:51 Note Text: Episode Visit Count: 10 Therapist That Will Accept/Oversee The Plan Of Care: Jesenia James Start of Care Date: 05/27/23 Onset Date: 05/27/19 Plan of Care Certification Date: 11/08/23 Next Certification Due Date: 11/08/23 Patient Identified by Name and Date of : Yes REHABILITATION AND SPORTS THERAPY PHYSICAL THERAPY DISCONTINUANCE OF CARE PLAN OF CARE UPDATE: Assessment: Ramos Padron is discontinued from Physical Therapy services due to maximal benefit.. Patient was seen for 10 visits from Start of Care Date: 05/27/23 to 11/08/2023 and treatment included: Therapeutic exercise, Neuromuscular re-education, Gait training, and Patient/Family/Caregiver Education. Pt demonstrates minimal progress with PT and since last recheck. Reasoning does not appear to be lack of exercise or physical limitations. Falls and decline appear to be due to lack of compliance with PT and recommendations to keep her safe. States she knows things she shouldn't do but just finds herself doing themanyway. Appears unwilling to change her behaviors despite family and PT recommendations. Due to this unable to continue care at this time. Goals for Episode of Care: updated 11/08/2023 Patient will perform sit to stand transfers with modified independence and improving safety with normal speed.--not met Patient will ambulate with Ustep walker with stand by assist with minimal cues for proper use of device.--not met Patient demonstrates independent and proper use of assistive device to allow for improved walking quality and safety therefore reducing the risk of falls.--not met Patient will complete 10 reps on 30 second chair stand test to decrease risk of falls.--not met Pt will verbalize decrease fall frequency from daily--not met Patient Goals: Be more stable SUBJECTIVE: Feels she is doing a lot worse. Falling multiple times a day. No falls yet today but fell probably 2-3 x yesterday. Admits her tells her not to do unsafe things (use the oven/stove, leg go of walker) but she doesn't listen. Does use rollator all the time. Doing PD class 1 day per week, HEP 3 days per week.. Functional Limitations: standing, walking Pain: Pain Pain Level: 7 Pain Location: Back Description: Sore Frequency: Continuous Post Treatment Pain Post Treatment Pain Level: No Change PROMIS Scales 08/09/2023 06/07/2023 Higher is Better Phys Func - Score 30 (moderate dysfunction) 28 (severe dysfunction) Phys Func - Percentile 2 1 Self-Eff Symptom - Score 38 (Low) 43 (Average) Self-Eff Symptom - Percentile 12 24 T-scores: mean of general population = 50. 5 points is clinically meaningfully difference Percentiles provide an indication of how the patient's score ranks in relation to the general population. Higher percentile rankings indicate better function/quality of life. 50th percentile is the average of the general population and indicates half of respondents had a worse score. OBJECTIVE MEASURES WITH LEVEL OF FUNCTION: Cognition Cognition: Safety Judgement Safety Judgment: Decreased awarenss of need for safety, Impulsive, Limited insight to deficits, Needs cuing UE and Cervical Strength R Shoulder Flexion: 4+/5 R Shoulder Abduction (C5): 4+/5 L Shoulder Flexion: 4+/5 L Shoulder Abduction (C5): 4+/5 Movement Description Movement Impairment(s): Festination Mobility Sit To Stand: Contact Guard Assistance, Comments Sit To Stand Comments: cues on safe hand placement Stand To Sit: Contact Guard Assistance Stand To Sit Comments: unsafe turn to sit; cues for safe performance Gait Gait: Contact Guard Assistance Gait Device: U-Step Walker Gait Deviations: General Deviations General Deviations/Observations: Cesar decreased, Step length decreased, Improper distancing from assistive device, Difficulty changing direction/turning Gait Observation: cues for safety Functional Performance Test Results 30 Second Chair Stand Test: 8 reps (braces legs against table) 5 Times Sit to Stand Test : 18.8 sec Timed Up and Go (sec): 28.15 sec Timed Up and Go Cognitive (sec): 26.36 sec Timed Up and Go Cognitive Comments: dual task of conversation TREATMENT: Therapeutic Exercise: 2: Reassessment Skilled Intervention: Proper technique AND skills to assess ROM AND strength to properly adjust plan of care. Neuromuscular Re-Education: 1: OUtcomes completed 2: Extensive education provided to patient including: not letting go of walker; not backing up; not using oven, stove or microwave for fear of falling taking hot items out; increasing HEP to 4 days per week; proper guarding; not doing tasks she doesn't need to do; proper hydration Skilled Intervention: Proper implementation of objective outcomes with explanation of finding (more content not included)... [facility] 11-08-2023 History of Present illness Narrative Images from the original note were not included. Episode Visit Count: 10 Therapist That Will Accept/Oversee The Plan Of Care: Jesenia James Start of Care Date: 05/27/23 Onset Date: 05/27/19 Plan of Care Certification Date: 11/08/23 Next Certification Due Date: 11/08/23 Patient Identified by Name and Date of : Yes REHABILITATION AND SPORTS THERAPY PHYSICAL THERAPY DISCONTINUANCE OF CARE PLAN OF CARE UPDATE: Assessment: Ramos Workman Gwencosmo is discontinued from Physical Therapy services due to maximal benefit.. Patient was seen for 10 visits from Start of Care Date: 05/27/23 to 11/08/2023 and treatment included: Therapeutic exercise, Neuromuscular re-education, Gait training, and Patient/Family/Caregiver Education. Pt demonstrates minimal progress with PT and since last recheck. Reasoning does not appear to be lack of exercise or physical limitations. Falls and decline appear to be due to lack of compliance with PT and recommendations to keep her safe. States she knows things she shouldn't do but just finds herself doing them anyway. Appears unwilling to change her behaviors despite family and PT recommendations. Due to this unable to continue care at this time. Goals for Episode of Care: updated 11/08/2023 Patient will perform sit to stand transfers with modified independence and improving safety with normal speed.--not met Patient will ambulate with Ustep walker with stand by assist with minimal cues for proper use of device.--not met Patient demonstrates independent and proper use of assistive device to allow for improved walking quality and safety therefore reducing the risk of falls.--not met Patient will complete 10 reps on 30 second chair stand test to decrease risk of falls.--not met Pt will verbalize decrease fall frequency from daily--not met Patient Goals: Be more stable SUBJECTIVE: Feels she is doing a lot worse. Falling multiple times a day. No falls yet today but fell probably 2-3 x yesterday. Admits her tells her not to do unsafe things (use the oven/stove, leg go of walker) but she doesn't listen. Does use rollator all the time. Doing PD class 1 day per week, HEP 3 days per week.. Functional Limitations: standing, walking Pain: Pain Pain Level: 7 Pain Location: Back Description: Sore Frequency: Continuous Post Treatment Pain Post Treatment Pain Level: No Change PROMIS Scales 08/09/2023 06/07/2023 Higher is Better Phys Func - Score 30 (moderate dysfunction) 28 (severe dysfunction) Phys Func - Percentile 2 1 Self-Eff Symptom - Score 38 (Low) 43 (Average) Self-Eff Symptom - Percentile 12 24 T-scores: mean of general population = 50. 5 points is clinically meaningfully difference Percentiles provide an indication of how the patient's score ranks in relation to the general population. Higher percentile rankings indicate better function/quality of life. 50th percentile is the average of the general population and indicates half of respondents had a worse score. OBJECTIVE MEASURES WITH LEVEL OF FUNCTION: Cognition Cognition: Safety Judgement Safety Judgment: Decreased awarenss of need for safety, Impulsive, Limited insight to deficits, Needs cuing UE and Cervical Strength R Shoulder Flexion: 4+/5 R Shoulder Abduction (C5): 4+/5 L Shoulder Flexion: 4+/5 L Shoulder Abduction (C5): 4+/5 Movement Description Movement Impairment(s): Festination Mobility Sit To Stand: Contact Guard Assistance, Comments Sit To Stand Comments: cues on safe hand placement Stand To Sit: Contact Guard Assistance Stand To Sit Comments: unsafe turn to sit; cues for safe performance Gait Gait: Contact Guard Assistance Gait Device: U-Step Walker Gait Deviations: General Deviations General Deviations/Observations: Cesar decreased, Step length decreased, Improper distancing from assistive device, Difficulty changing direction/turning Gait Observation: cues for safety Functional Performance Test Results 30 Second Chair Stand Test: 8 reps (braces legs against table) 5 Times Sit to Stand Test : 18.8 sec Timed Up and Go (sec): 28.15 sec Timed Up and Go Cognitive (sec): 26.36 sec Timed Up and Go Cognitive Comments: dual task of conversation TREATMENT: Therapeutic Exercise: 2: Reassessment Skilled Intervention: Proper technique & skills to assess ROM & strength to properly adjust plan of care. Neuromuscular Re-Education: 1: OUtcomes completed 2: Extensive education provided to patient including: not letting go of walker; not backing up; not using oven, stove or microwave for fear of falling taking hot items out; increasing HEP to 4 days per week; proper guarding; not doing tasks she doesn't need to do; proper hydration Skilled Intervention: Proper implementation of objective outcomes with explanation of findings/deficits. Proper patient guarding to prevent falls/increase patient safety. Education as above. Handouts for above compliance . Billing Therapeutic Exercise Treatment Minutes: 15 Neuromuscular Re-Education Treatment Minutes: 28 Skilled Treatment Time Minutes (timed and untimed codes): 43 Total Session Time (minutes): 43 Session Start Time : 1000 Session Stop Time : 1043 Jesenia James PT, DPT documented in this encounter [facility] 10-03-2023 Telephone encounter Note Summary: Research Attempted to call patient to touch base on potential research participation. Call would not go through. [facility] Work Phone: 10-03-2023 Miscellaneous Notes Summary: Research Attempted to call patient to touch base on potential research participation. Call would not go through. documented in this encounter [facility] 10-02-2023 Telephone encounter Note Called to speak about Octavio interest but could not leave a voicemail because mailbox was full. , Scotty Diez, Grocery Deliverer [facility] Work Phone: 10-02-2023 Miscellaneous Notes Called to speak about Octavio interest but could not leave a voicemail because mailbox was full. , Scotty Diez, Grocery Deliverer documented in this encounter [facility] 09-16-2023 History of Present illness Narrative [facility] - FOLLOW UP EVALUATION Dmitry Burk MD [address] [facility] [id number] I had the pleasure of seeing Ms. Padron for follow up today. She is a 78 year old right-handed female with a history of PSP since 2019. She is seen with her . Subjective Previous Plan-05/15/2023 Visit: When you are almost out of Sinemet, try tapering off. Reduce to 1/2 tab 3 times a day for 1 week and then discontinue it. If you get worse we can restart it, consider trying the generic at that point - Continue with therapy and exercise - See PT here when back for follow-up in 3 months Interval History: Worse off Sinemet, more falls. BAD. Fell 5 times 1 days a few weeks ago. Thinks she blacked out. Sometimes lightheaded when she stands. Drinks 6-7 bottles water per day. But has urinary incontinence chronically. Worse the past couple of months. Went to PCP office 2 weeks ago, saw partner. Checked for UTI. Blood work checked. Added Requip for 30 days. No change. Wants to stay in bed all day but isn't sleeping. Fell last night. Won't sit to do anything. Was standing trying to put lid on skin cream. Walks holding things in both hands. Wants to get in to the refrigerator. Impulsive. Will put right foot outside the walker. Picks up the U-step. In a hurry. The [facility] recommending hip surgery. There is pain. Not proceeding because she'd fall and mess up the surgery. Not exercising like she should. Going back to to exercise class. Might go to day care another day, no exercise there. Goes 2 days per week. needs the time off. Has a evelia. Slides out of bed trying to get out of it. Went camping for a week and didn't fall at all. Single mattress, lower. Considering adjustable bed. Took [facility]. Parkinson's Medication Schedule - as of the start of the visit: Medications Sinemet 25/100 1-2 1-2 1-2 Prior Anti-Parkinson Therapies Carbidopa/Levodopa Questionnaires In addition, the following areas that may be affected by abnormal involuntary movements were evaluated: Daily activities Difficulties with eating: Difficulties in dressing: Difficulties with hygiene activities: Yes (mild) Difficulties with handwriting: Yes (mild) Difficulties with doing hobbies and other activities: Yes (moderate) Difficulties turning in bed: Yes (mild) Difficulties getting out of bed, car or chair: yes Tremors/Gait/Balance Shaking or tremors: 0 (none) Walking and balance problems: Yes (moderate) Number of falls in the Last Month: many Gait freezing: Yes (mild) Autonomic/Pain Lightheadeness on standing: Yes (mild) Urinary problems: Yes (slight) Constipation problems: 0 (none) Pain and other sensations: Yes (slight) Speech/Swallowing Speech problems: Yes (slight) Drooling: Yes (moderate) awake or asleep. manageable Chewing and swallowing problems: 0 (none) raspy throat. coughing but not linked to eating or drinking. not productive. for the past year. Sleep/Fatigue Sleep problems: 0 (none) Daytime sleepiness: Yes (slight) Fatigue: Yes (slight) Mood/Behavior Depression: PHQ-9 Score: 8 usually representing mild (5-9) depression. Anxiety: CARMEN-7 Total Score: 1 usually representing no significant (0-4) anxiety. Finally, the following table shows the patient's overall global physical and mental health using the PROMIS scale: PROMIS-10 Flowsheet Row Office Visit from 05/15/2023 in Neurology Global Physical Health T Score 44.9 Global Mental Health T Score 41.1 0-10 Standard Pain Scale 3 *PROMIS-10 scoring scale: mean = 50, over 50 is above average, under 50 is below average In addition, the following Parkinson Lifestyle-associated features were evaluated: Conditions Prior to Dx: Depression: No Anxiety: Melanoma: No Constipation: No Yelling: No Head Trauma: No Habits/exposures Prior to Dx Smoking: No Caffeinated coffee (1-cup+): Yes (and still do) Caffeinated soda/tea (2 cups+): Yes (and still do) Alcohol (1 bottle/shot/glass+): Yes (but quit) Exercise (3x/wk+): Ibuprofen use (1x/wk+): Yes (and still do) Pesticides: No Welding: ALLERGIES No Known Allergies Current Outpatient Medications Medication Sig rOPINIRole (REQUIP) 0.25 mg tablet Take 0.25 mg by mouth three times a day. acetaminophen 650 mg CR tablet 1,300 mg. Cholecalciferol, Vitamin D3, 50 mcg (2,000 unit) cap Take by mouth as directed. ibuprofen (MOTRIN) 200 mg tablet Take 200 mg by mouth every 6 hours as needed. rosuvastatin (CRESTOR) 10 mg tablet Take 1 tablet by mouth once daily. SINEMET 25-100 mg per tablet Take 2 tablets by mouth three times a day. No current facility-administered medications for this visit. Objective Vital Signs: Ht 157.5 cm (5' 2) Wt 61.3 kg (135 lb 2.3 oz) SpO2 95% BMI 24.72 kg/m Orthostatic Vitals: Sitting: BP 115/74 Pulse 85 Standing: BP 126/81 Pulse 91 Weight: 61.3 kg (135 lb 2.3 oz) Height: 157.5 cm (5' 2) No LMP recorded. Patient is postmenopausal. Body mass index is 24.72 kg/m . General Physical Examination: General: Awake, alert, interactive, no acute distress, good nutritional status, normal development, well-kept General Neurological Examination: Neurological Exam Mental Status Awake and alert. Cranial Nerves CN III, IV, : Abnormal extraocular movements: Limited vertical eye movements. Hypometric saccades. Choppy pursuit. Movement Disorders Scales Performed: MDS-UPDRS Motor subscale condition of exam Medication Off/On/Naiive ON Time of UPDRS Time of Last Medication Last Medication Taken DBS Right DBS Left MDS-UPDRS Motor subscale scores Speech 2-Mild. Loss of modulation, diction, or volume, with a few words unclear, but the overall sentences easy to follow. Facial Expression 2-Mild. In addition to decreased eye-blink frequency, Masked facies present in the lower face as well, namely fewer movements around the mouth, such as less spontaneous smiling, but lips not parted. Rigidity Neck 0-Normal. No rigidity. Rigidity Right Upper Extremity 0-Normal. No rigidity. Rigidity Left Upper Extremity 0-Normal. No rigidity. Rigidity Right Lower Extremity 0-Normal. No rigidity. Rigidity Left Lower Extremity 0-Normal. No rigidity. Finger Taps Right 1-Slight. a) the regular rhythm is broken with one or two interruptions or hesitations of the tapping movement, b) slight slowing, c) the amplitude decrements near the end of the 10 taps. Finger Taps Left 1-Slight. a) the regular rhythm is broken with one or two interruptions or hesitations of the tapping movement, b) slight slowing, c) the amplitude decrements near the end of the 10 taps. Hand Movements Right 1-Slight. a) the regular rhythm is broken with one or two interruptions or hesitations of the movement, b) slight slowing, c) the amplitude decrements near the end of the task. Hand Movements Left 0-Normal. No problem. Arm Movements Right 2-Mild. a) 3 to 5 interruptions during the movements, b) mild slowing, c) the amplitude decrements midway in the sequence. Arm Movements Left 2-Mild. a) 3 to 5 interruptions during the movements, b) mild slowing, c) the amplitude decrements midway in the sequence. Toe Taps Right 1-Slight. a) the regular rhythm is broken with one or two interruptions or hesitations of the tapping movement, b) slight slowing, c) the amplitude decrements near the end of the ten taps. Toe Taps Left 0-Normal. No problem. Leg Agility Right 0-Normal. No problems. Leg Agility Left 0-Normal. No problems. Arise From Chair 0-Normal. No problems. Able to arise quickly without hesitation. Gait 3-Moderate. Requires an assistance device for safe walking (walking stick, walker) but not a person. Gait Freezing 0-Normal. No freezing. Posture Stability 0-Normal. No problems: recovers with one or two steps. (deferred) Posture 1-Slight. Not quite erect, but posture could be normal for older person. Body Bradykinesia 2-Mild. Mild global slowness and poverty of spontaneous movements. Postural Tremor Hand Right 0-Normal. No tremor. Postural Tremor Hand Left 0-Normal. No tremor. Kinetic Tremor Right 0-Normal. No tremor. Kinetic Tremor Left 0-Normal. No tremor. Rest Tremor Amplitude Right Upper Extremity 0-Normal. No tremor. Rest Tremor Amplitude Left Upper Extremity 0-Normal. No tremor. Rest Tremor Amplitude Right Lower Extremity 0-Normal. No tremor. Rest Tremor Amplitude Left Lower Extremity 0-Normal. No tremor. Rest Tremor Amplitude Lip/Jaw 0-Normal. No tremor. Rest Tremor Constancy 0-Normal. No tremor. MDS-UPDRS Motor subscale totals Left Total 3 Right Total 5 Midline Total 10 Tremor Total / 10 0 PIGD Total / 3 3 Overall Total 18 % Change Compared to Last Filed Total Pertinent Studies Brain MRI 08/12/22 There is moderate cerebral atrophy with widening of the extra-axial spaces and ventricular dilatation. There is a limited number of small white matter hyperintensities, distributed throughout the deep white matter tracts of the cerebral hemispheres, consistent with mild chronic white matter ischemic changes. There is no evidence for recent intracranial ischemia or other cause of cytotoxic edema on diffusion-weighted imaging. Normal T2 images of the brain without demonstrated susceptibility artifact. There is no demonstrated hemosiderin staining. Midbrain iron stores are preserved. Normal bilateral basal ganglia. Normal thalami. There is no extra-axial fluid accumulation. Normal flow voids within the major intracranial circulation suggesting patency by spin-echo criteria. Normal sella turcica, pituitary gland, infundibular stalk, optic chiasm and hypothalamus. Normal tectal plate and pineal gland. Normal midbrain, felix and medulla. Normal cerebellum. Normal basal cisterns. Normal bilateral temporal bones. Normal bilateral internal auditory canals. No demonstrated orbital abnormality, within the constraints of the routine brain study. Normal visualized paranasal sinuses. Normal calvarium and skull base. Normal visualized soft tissue structures. Normal visualized upper cervical spine. Impression: Involutional changes of the brain, as described above. Assessment and Plan: Assessment Ms. Padron is a right-handed 78 year old year old female with likely PSP. Symptoms started with falls around 2019. History and exam are consistent with PSP. She had not been noted to consistently improve with Sinemet up to 250 mg per dose, no change when the dose was decreased. However, her fall frequency greatly increased when Sinemet was tapered off. She since resumed her previous Sinemet dosing of 25/100 1 tab 3 times daily. She will try increasing the dose again to a maximum of 2 tabs 3 times daily. Primary care started low-dose ropinirole with no improvement noticed, recommend discontinuing. Consider seeing urology for the incontinence. Continue with exercise. There may be interest in a PSP clinical trial so we will ask the research team to contact her. The following are the current problems noted and addressed during this visit: Psp (progressive supranuclear palsy) (hcc) (primary encounter diagnosis) Plan 09/16/2023 Visit: Consider seeing urology - Try increasing the carbidopa-levodopa and see if the higher dose is helpful. Increase to 1.5 tab 3 times a day for 2 weeks and then increase to 2 tabs 3 times a day for at least 2 weeks. Continue with the dose that seems best, 1-2 tabs 3 times a day - Stop ropinirole - I'll ask someone form the research team to contact you about the study. Updated Movement Disorders Medication Schedule: Medications Sinemet 25/100 1-2 1-2 1-2 Return at or around: 01/17/24 Level of service : 72350 (40-54 min). Time spent 56 min on the day of service, which included preparing to see the patient, [id number] patient care, completing clinical documentation, obtaining and/or reviewing separately obtained history, performing a medically appropriate examination, and counseling and educating the patient/family/caregiver. Thank you for allowing me to be part of the clinical care of this patient! I look forward to continued participation in the patient s care with you. Please do not hesitate to call with any questions. Sincerely, Juliet Chanel MD documented in this encounter [facility] 09-16-2023 Instructions Juliet Chanel MD - 09/16/2023 10:39 AM EDT It was a pleasure to see you today. We addressed the following diagnoses: Psp (progressive supranuclear palsy) (hcc) (primary encounter diagnosis) My recommendations are as follows: Consider seeing urology - Try increasing the carbidopa-levodopa and see if the higher dose is helpful. Increase to 1.5 tab 3 times a day for 2 weeks and then increase to 2 tabs 3 times a day for at least 2 weeks. Continue with the dose that seems best, 1-2 tabs 3 times a day - Stop ropinirole - I'll ask someone form the research team to contact you about the study. Movement Disorders Medication Schedule: Medications Sinemet 25/100 1-2 1-2 1-2 No follow-ups on file. If there are any concerns before your next visit, please call or you can send a message through [employer]. You can also now schedule and select appointments through [employer]. Juliet Chanel MD documented in this encounter [facility] 08-09-2023 History of Present illness Narrative Program_ID:[id number] Access Code: [email or web address] URL: [email or web address] Date: 08-09-2023 Prepared By: Jesenia James Program Notes Exercises - Supine Bridge - 1 x daily - 7 x weekly - 1 sets - 10 reps - Supine Active Straight Leg Raise - 1 x daily - 7 x weekly - 1 sets - 10 reps - Hip Fall out/Hip Drop - 1 x daily - 7 x weekly - 1 sets - 10 reps - Supine Lower Trunk Rotation - 1 x daily - 7 x weekly - 1 sets - 10 reps - Seated Heel Raise - 1 x daily - 7 x weekly - 1 sets - 10 reps - Seated Toe Raise - 1 x daily - 7 x weekly - 1 sets - 10 reps Images from the original note were not included. Episode Visit Count: 9 Therapist That Will Accept/Oversee The Plan Of Care: Jesenia James Start of Care Date: 05/27/23 Onset Date: 05/27/19 Plan of Care Certification Date: 05/27/23 Next Certification Due Date: 08/25/23 Patient Identified by Name and Date of : Yes REHABILITATION AND SPORTS THERAPY PHYSICAL THERAPY PROGRESS REPORT PLAN OF CARE UPDATE: Assessment: Ramos Padron demonstrates improvements in rising from a chair, standing, and walking. She has progressed toward goals. Patient continues to present with impairments in gait, independence in exercise, and overall function that interfere with standing, walking . Current prognosis is Fair due to: clinical presentation, chronic nature of impairments, learning impairments . At this time patient demonstrates stable status with PT abilities. Has HEP to be addressing issues at home. Falls appears to be due to cognition and impulsiveness not physical abilities Will have patient return in 3 month(s) to reasssess. Goals for Episode of Care: updated 08/09/2023 Patient will perform sit to stand transfers with modified independence and improving safety with normal speed.--progresing Patient will ambulate with Ustep walker with stand by assist with minimal cues for proper use of device.--progressing Patient demonstrates independent and proper use of assistive device to allow for improved walking quality and safety therefore reducing the risk of falls.--progressing Patient will complete 10 reps on 30 second chair stand test to decrease risk of falls.--not met Pt will verbalize decrease fall frequency from daily--not met Patient Goals: Be more stable Planned Interventions, Frequency, and Duration: 1 visit, 1 visit Total Number of Visits Planned: 1 Patient to be seen for Therapeutic exercise (66245), Neuromuscular re-education (23251), Manual therapy (87287), Therapeutic activities (31802), Self-nursing home management (71766), Gait Training (51614), Patient/Family/Caregiver Education PLAN FOR NEXT VISIT: 3 month recheck SUBJECTIVE: Since last here MD and patient tried to stop Sinemet which did not well. Increased to falling 2-3 x day. So they resumed but generic. Returned to baseline. No falls last 2 days.. Functional Limitations: standing, walking Pain: Pain Pain Level: 0 Post Treatment Pain Post Treatment Pain Level: No Change PROMIS Scales 08/09/2023 06/07/2023 Higher is Better Phys Func - Score 30 (moderate dysfunction) 28 (severe dysfunction) Phys Func - Percentile 2 1 Self-Eff Symptom - Score 38 (Low) 43 (Average) Self-Eff Symptom - Percentile 12 24 T-scores: mean of general population = 50. 5 points is clinically meaningfully difference Percentiles provide an indication of how the patient's score ranks in relation to the general population. Higher percentile rankings indicate better function/quality of life. 50th percentile is the average of the general population and indicates half of respondents had a worse score. OBJECTIVE MEASURES WITH LEVEL OF FUNCTION: Cognition Cognition: Safety Judgement Safety Judgment: Decreased awarenss of need for safety, Impulsive, Limited insight to deficits, Needs cuing UE AROM R UE AROM: WFL L UE AROM: WFL LE Strength R LE Strength: Genearlly 5/5 L LE Strength: Genearlly 5/5 Mobility Sit To Stand: Contact Guard Assistance Stand To Sit: Contact Guard Assistance, Comments Stand To Sit Comments: Cues for safe hand placement; braces legs to stand Gait Gait: Contact Guard Assistance Gait Device: U-Step Walker Gait Deviations: General Deviations Gait Observation: cues for safety Functional Performance Test Results 30 Second Chair Stand Test: 8 reps (bracing legs to stand) 5 Times Sit to Stand Test : 18.4 sec Timed Up and Go (sec): 26.07 sec 4 Stage Balance Test Single leg stance - right (sec): 30 sec Single leg stance - left (sec): 24 sec TREATMENT: Therapeutic Exercise: 2: Reassessment 3: Issued generalized HEP and education on importance of regular exercise (including SLR, bridges; hip drops; hip rocking; B DF; B PF Skilled Intervention: Proper technique & skills to assess ROM & strength to properly adjust plan of care. Education as above. Proper selection of treatments for this session based on clinical presentation, deficits, and needs. Exercise handouts for new home exercises complied & distributed to patient. Neuromuscular Re-Education: 1: OUtcomes completed 2: Issued and discuss wheelchair prescription process and education on how to acquire if looking for insurance coverage Skilled Intervention: Proper implementation of objective outcomes with explanation of findings/deficits. Proper patient guarding to prevent falls/increase patient safety. Education as above. Billing Therapeutic Exercise Treatment Minutes: 30 Neuromuscular Re-Education Treatment Minutes: 13 Gait Training Treatment Minutes: 43 Skilled Treatment Time Minutes (timed and untimed codes): 43 Total Session Time (minutes): 43 Session Start Time : 1400 Session Stop Time : 1443 Jesenia James PT, DPT documented in this encounter [facility] 08-09-2023 Note HNO ID: [id number] Author: JESENIA JAMES PT, DPT Service: ? Author Type: Physical Therapist Type: Progress Notes Filed: 08/31/2023 11:06 Note Text: Episode Visit Count: 9 Therapist That Will Accept/Oversee The Plan Of Care: Jesenia James Start of Care Date: 05/27/23 Onset Date: 05/27/19 Plan of Care Certification Date: 05/27/23 Next Certification Due Date: 08/25/23 Patient Identified by Name and Date of : Yes REHABILITATION AND SPORTS THERAPY PHYSICAL THERAPY PROGRESS REPORT PLAN OF CARE UPDATE: Assessment: Ramos Padron demonstrates improvements in rising from a chair, standing, and walking. She has progressed toward goals. Patient continues to present with impairments in gait, independence in exercise, and overall function that interfere with standing, walking . Current prognosis is Fair due to: clinical presentation, chronic nature of impairments, learning impairments . At this time patient demonstrates stable status with PT abilities. Has HEP to be addressing issues at home. Falls appears to be due to cognition and impulsiveness not physical abilities Will have patient return in 3 month(s) to reasssess. Goals for Episode of Care: updated 08/09/2023 Patient will perform sit to stand transfers with modified independence and improving safety with normal speed.--progresing Patient will ambulate with Ustep walker with stand by assist with minimal cues for proper use of device.--progressing Patient demonstrates independent and proper use of assistive device to allow for improved walking quality and safety therefore reducing the risk of falls.--progressing Patient will complete 10 reps on 30 second chair stand test to decrease risk of falls.--not met Pt will verbalize decrease fall frequency from daily--not met Patient Goals: Be more stable Planned Interventions, Frequency, and Duration: 1 visit, 1 visit Total Number of Visits Planned: 1 Patient to be seen for Therapeutic exercise (46915), Neuromuscular re-education (31748), Manual therapy (74583), Therapeutic activities (79460), Self-nursing home management (67216), Gait Training (15888), Patient/Family/Caregiver Education PLAN FOR NEXT VISIT: 3 month recheck SUBJECTIVE: Since last here MD and patient tried to stop Sinemet which did not well. Increased to falling 2-3 x day. So they resumed but generic. Returned to baseline. No falls last 2 days.. Functional Limitations: standing, walking Pain: Pain Pain Level: 0 Post Treatment Pain Post Treatment Pain Level: No Change PROMIS Scales 08/09/2023 06/07/2023 Higher is Better Phys Func - Score 30 (moderate dysfunction) 28 (severe dysfunction) Phys Func - Percentile 2 1 Self-Eff Symptom - Score 38 (Low) 43 (Average) Self-Eff Symptom - Percentile 12 24 T-scores: mean of general population = 50. 5 points is clinically meaningfully difference Percentiles provide an indication of how the patient's score ranks in relation to the general population. Higher percentile rankings indicate better function/quality of life. 50th percentile is the average of the general population and indicates half of respondents had a worse score. OBJECTIVE MEASURES WITH LEVEL OF FUNCTION: Cognition Cognition: Safety Judgement Safety Judgment: Decreased awarenss of need for safety, Impulsive, Limited insight to deficits, Needs cuing UE AROM R UE AROM: WFL L UE AROM: WFL LE Strength R LE Strength: Genearlly 5/5 L LE Strength: Genearlly 5/5 Mobility Sit To Stand: Contact Guard Assistance Stand To Sit: Contact Guard Assistance, Comments Stand To Sit Comments: Cues for safe hand placement; braces legs to stand Gait Gait: Contact Guard Assistance Gait Device: U-Step Walker Gait Deviations: General Deviations Gait Observation: cues for safety Functional Performance Test Results 30 Second Chair Stand Test: 8 reps (bracing legs to stand) 5 Times Sit to Stand Test : 18.4 sec Timed Up and Go (sec): 26.07 sec 4 Stage Balance Test Single leg stance - right (sec): 30 sec Single leg stance - left (sec): 24 sec TREATMENT: Therapeutic Exercise: 2: Reassessment 3: Issued generalized HEP and education on importance of regular exercise (including SLR, bridges; hip drops; hip rocking; B DF; B PF Skilled Intervention: Proper technique AND skills to assess ROM AND strength to properly adjust plan of care. Education as above. Proper selection of treatments for this session based on clinical presentation, deficits, and needs. Exercise handouts for new home exercises complied AND distributed to patient. Neuromuscular Re-Education: 1: OUtcomes completed 2: Issued and discuss wheelchair prescription process and education on how to acquire if looking for insurance coverage Skilled Intervention: Proper implementation of objective outcomes with explanation of findings/deficits. Proper patient guarding to prevent falls/increase patient safety. Education as (more content not included)... [facility] 07-17-2023 Note HNO ID: [id number] Author: LYSSA KEMP PTA Service: ? Author Type: Combiner Operator Type: Progress Notes Filed: 07/17/2023 13:11 Note Text: Episode Visit Count: 8 Therapist That Will Accept/Oversee The Plan Of Care: Jesenia James Start of Care Date: 05/27/23 Onset Date: 05/27/19 Plan of Care Certification Date: 05/27/23 Next Certification Due Date: 08/25/23 Patient Identified by Name and Date of : Yes REHABILITATION AND SPORTS THERAPY PHYSICAL THERAPY TREATMENT NOTE ASSESSMENT: Ramos Padron tolerated the session with no issues. She demonstrated good balance with static tandem and single leg stance bilaterally. Follows cues well throughout session with staying inside walker with turns. The patient will continue to benefit from ongoing skilled physical therapy for reassessment by supervising therapist. PLAN FOR NEXT VISIT: Continue with walking in small spaces and turning, reaching for items with walker safely. Reassesment SUBJECTIVE: Pt reports no falls that she can remember, no complaints. Pain: Pain Pain Level: 0 Post Treatment Pain Post Treatment Pain Level: No Change OBJECTIVE MEASURES WITH LEVEL OF FUNCTION: Gait: rollator, SBA, step through gait pattern. TREATMENT: Therapeutic Exercise: 1: Nu step L4. 6 min for AROM cues to stay above 70spm Skilled Intervention: Patient was educated in proper exercise technique and purpose for exercises. Skilled judgment was used in selection of appropriate interventions. Correct performance of therapeutic exercises was facilitated with verbal and visual cuing. Neuromuscular Re-Education: 1: standing with reaching ball to targets B sides/forward 10x each 2: Tandem stance 30 sec each 3: SLS L - 18 sec, R- 25 sec. Skilled Intervention: Skilled judgment used to assess appropriate program for balance and coordination activity. Education and demonstration for posture and positioning for tone management. Gait Trainin: Gait with U step in/out of treatment rooms, cues for heel toe and stay close into walker. 2: walking to counter and opening/closing cabinets 3: walking forward/backwards with U step cues for step through pattern. 5x 15ft Skilled Intervention: Patient was provided stand by assist during pre-gait/gait training to prevent falls and insure safety. Therapeutic exercise treatment minutes:6 Billing Neuromuscular Re-Education Treatment Minutes: 14 Gait Training Treatment Minutes: 20 Skilled Treatment Time Minutes (timed and untimed codes): 40 Total Session Time (minutes): 40 Session Start Time : 1050 Session Stop Time : 1130 Lyssa Kemp [facility] [place] 07-17-2023 History of Present illness Narrative Episode Visit Count: 8 Therapist That Will Accept/Oversee The Plan Of Care: Jesenia James Start of Care Date: 05/27/23 Onset Date: 05/27/19 Plan of Care Certification Date: 05/27/23 Next Certification Due Date: 08/25/23 Patient Identified by Name and Date of : Yes REHABILITATION AND SPORTS THERAPY PHYSICAL THERAPY TREATMENT NOTE ASSESSMENT: Ramos Padron tolerated the session with no issues. She demonstrated good balance with static tandem and single leg stance bilaterally. Follows cues well throughout session with staying inside walker with turns. The patient will continue to benefit from ongoing skilled physical therapy for reassessment by supervising therapist. PLAN FOR NEXT VISIT: Continue with walking in small spaces and turning, reaching for items with walker safely. Reassesment SUBJECTIVE: Pt reports no falls that she can remember, no complaints. Pain: Pain Pain Level: 0 Post Treatment Pain Post Treatment Pain Level: No Change OBJECTIVE MEASURES WITH LEVEL OF FUNCTION: Gait: rollator, SBA, step through gait pattern. TREATMENT: Therapeutic Exercise: 1: Nu step L4. 6 min for AROM cues to stay above 70spm Skilled Intervention: Patient was educated in proper exercise technique and purpose for exercises. Skilled judgment was used in selection of appropriate interventions. Correct performance of therapeutic exercises was facilitated with verbal and visual cuing. Neuromuscular Re-Education: 1: standing with reaching ball to targets B sides/forward 10x each 2: Tandem stance 30 sec each 3: SLS L - 18 sec, R- 25 sec. Skilled Intervention: Skilled judgment used to assess appropriate program for balance and coordination activity. Education and demonstration for posture and positioning for tone management. Gait Trainin: Gait with U step in/out of treatment rooms, cues for heel toe and stay close into walker. 2: walking to counter and opening/closing cabinets 3: walking forward/backwards with U step cues for step through pattern. 5x 15ft Skilled Intervention: Patient was provided stand by assist during pre-gait/gait training to prevent falls and insure safety. Therapeutic exercise treatment minutes:6 Billing Neuromuscular Re-Education Treatment Minutes: 14 Gait Training Treatment Minutes: 20 Skilled Treatment Time Minutes (timed and untimed codes): 40 Total Session Time (minutes): 40 Session Start Time : 1050 Session Stop Time : 1130 Lyssa Kemp PTA documented in this encounter [facility] 07-15-2023 Telephone encounter Note PA started on cover my meds for Sinemet 25-100. Waiting for ins reply. Motta:[id number] [facility] 07-15-2023 Miscellaneous Notes PA started on cover my meds for Sinemet 25-100. Waiting for ins reply. Motta:[id number] documented in this encounter [facility] 07-12-2023 Note HNO ID: [id number] Author: LYSSA KEMP PTA Service: ? Author Type: Combiner Operator Type: Progress Notes Filed: 07/12/2023 15:48 Note Text: Episode Visit Count: 7 Therapist That Will Accept/Oversee The Plan Of Care: Jesenia James Start of Care Date: 05/27/23 Onset Date: 05/27/19 Plan of Care Certification Date: 05/27/23 Next Certification Due Date: 08/25/23 Patient Identified by Name and Date of : Yes REHABILITATION AND SPORTS THERAPY PHYSICAL THERAPY TREATMENT NOTE ASSESSMENT: Ramos Padron tolerated the session with no issues. She demonstrated good tolerance to activity today. Spoke with afterward, reporting patient does not exclude what happens at home and she did fall again. The patient will continue to benefit from ongoing skilled physical therapy to progress toward set goals. PLAN FOR NEXT VISIT: Continue with walking in small spaces and turning, reaching for items with walker safely. SUBJECTIVE: Pt denies falls, no new issues from last session. Unsure if PT is helping or not. Pain: Pain Pain Level: 4 Pain Location: Head - Left, Head - Right Description: Sore Post Treatment Pain Post Treatment Pain Level: No Change OBJECTIVE MEASURES WITH LEVEL OF FUNCTION: 1 episode of turning too quickly to sit down throughout multiple trials. Follows cues well. TREATMENT: Therapeutic Exercise: 1: Nu step L4. 6 min for AROm Skilled Intervention: Patient was educated in proper exercise technique and purpose for exercises. Skilled judgment was used in selection of appropriate interventions. Correct performance of therapeutic exercises was facilitated with verbal and visual cuing. Neuromuscular Re-Education: 1: standing reaching in various directions with ball to stick 15x no LOB Skilled Intervention: Skilled judgment used to assess appropriate program for balance and coordination activity. Education and demonstration for posture and positioning for tone management. Gait Trainin: Weaving in/out of cones with walker 2x through, cues for staying inside walker 2: walking to bathroom, opening doorturning around and walking out. min A to keep door open. ( assists in this when in public) 3: walking and turning to sit in various seats throughout the gym 4: walking forward/backwards while staying inside walker 5x 8ft Skilled Intervention: Patient was provided contact guard assistance during pre-gait/gait training to prevent falls and insure safety. Education provided to patient regarding the proper sequence with turning inside walker. Therapeutic exercise treatment minutes:6 Billing Neuromuscular Re-Education Treatment Minutes: 5 Gait Training Treatment Minutes: 29 Skilled Treatment Time Minutes (timed and untimed codes): 40 Total Session Time (minutes): 40 Session Start Time : 1050 Session Stop Time : 1130 Lyssa Kemp [facility] [place] 07-12-2023 History of Present illness Narrative Episode Visit Count: 7 Therapist That Will Accept/Oversee The Plan Of Care: Jesenia James Start of Care Date: 05/27/23 Onset Date: 05/27/19 Plan of Care Certification Date: 05/27/23 Next Certification Due Date: 08/25/23 Patient Identified by Name and Date of : Yes REHABILITATION AND SPORTS THERAPY PHYSICAL THERAPY TREATMENT NOTE ASSESSMENT: Ramos Padron tolerated the session with no issues. She demonstrated good tolerance to activity today. Spoke with afterward, reporting patient does not exclude what happens at home and she did fall again. The patient will continue to benefit from ongoing skilled physical therapy to progress toward set goals. PLAN FOR NEXT VISIT: Continue with walking in small spaces and turning, reaching for items with walker safely. SUBJECTIVE: Pt denies falls, no new issues from last session. Unsure if PT is helping or not. Pain: Pain Pain Level: 4 Pain Location: Head - Left, Head - Right Description: Sore Post Treatment Pain Post Treatment Pain Level: No Change OBJECTIVE MEASURES WITH LEVEL OF FUNCTION: 1 episode of turning too quickly to sit down throughout multiple trials. Follows cues well. TREATMENT: Therapeutic Exercise: 1: Nu step L4. 6 min for AROm Skilled Intervention: Patient was educated in proper exercise technique and purpose for exercises. Skilled judgment was used in selection of appropriate interventions. Correct performance of therapeutic exercises was facilitated with verbal and visual cuing. Neuromuscular Re-Education: 1: standing reaching in various directions with ball to stick 15x no LOB Skilled Intervention: Skilled judgment used to assess appropriate program for balance and coordination activity. Education and demonstration for posture and positioning for tone management. Gait Trainin: Weaving in/out of cones with walker 2x through, cues for staying inside walker 2: walking to bathroom, opening doorturning around and walking out. min A to keep door open. ( assists in this when in public) 3: walking and turning to sit in various seats throughout the gym 4: walking forward/backwards while staying inside walker 5x 8ft Skilled Intervention: Patient was provided contact guard assistance during pre-gait/gait training to prevent falls and insure safety. Education provided to patient regarding the proper sequence with turning inside walker. Therapeutic exercise treatment minutes:6 Billing Neuromuscular Re-Education Treatment Minutes: 5 Gait Training Treatment Minutes: 29 Skilled Treatment Time Minutes (timed and untimed codes): 40 Total Session Time (minutes): 40 Session Start Time : 1050 Session Stop Time : 1130 Lyssa Kemp PTA documented in this encounter [facility] 07-10-2023 Telephone encounter Note Call to patient, no answer. Message left for return call. [facility] 07-10-2023 Miscellaneous Notes Call to patient, no answer. Message left for return call. Call received for Juliet Chanel MD regarding Ramos Padron 1945. Caller: Other: PCP office Patient Identified by Name and : Yes Was permission obtained from patient ? Reason for Call: PCP's office called regarding Sinemet. Patient has fallen today and was trying the 1/2 tab instructions and was doing poorly so went up to 1 TID and is okay on it. Nurse said patient will run out max 3 days and they are asking if it's okay for the patient to return to the higher dose. They would like to speak to a nurse to clarify. She also mentioned the patient was asking to go back to brand. [place] [phone] Last Office Visit: Visit 05/15/2023 Next scheduled appointment: Visit date not found Best number to reach caller: [place] [phone] Best time to reach caller: Is it OK to leave a detailed voice message? documented in this encounter [facility] 07-10-2023 Telephone encounter Note Call received for Juliet Chanel MD regarding Ramos Padron 1945. Caller: Other: PCP office Patient Identified by Name and : Yes Was permission obtained from patient ? Reason for Call: PCP's office called regarding Sinemet. Patient has fallen today and was trying the 1/2 tab instructions and was doing poorly so went up to 1 TID and is okay on it. Nurse said patient will run out max 3 days and they are asking if it's okay for the patient to return to the higher dose. They would like to speak to a nurse to clarify. She also mentioned the patient was asking to go back to brand. [place] [phone] Last Office Visit: Visit 05/15/2023 Next scheduled appointment: Visit date not found Best number to reach caller: [place] [phone] Best time to reach caller: Is it OK to leave a detailed voice message? [facility] 07-05-2023 Note HNO ID: [id number] Author: LYSSA KEMP PTA Service: ? Author Type: Combiner Operator Type: Progress Notes Filed: 07/05/2023 10:53 Note Text: Episode Visit Count: 6 Therapist That Will Accept/Oversee The Plan Of Care: Jesenia James Start of Care Date: 05/27/23 Onset Date: 05/27/19 Plan of Care Certification Date: 05/27/23 Next Certification Due Date: 08/25/23 Patient Identified by Name and Date of : Yes REHABILITATION AND SPORTS THERAPY PHYSICAL THERAPY TREATMENT NOTE ASSESSMENT: Ramos Padron tolerated the session with no issues. She presents with decreased safety at times during session with turning to sit pre maturely. Education on safety, keeping 1 hand on walker at all times if reaching for something.The patient will continue to benefit from ongoing skilled physical therapy to progress toward set goals. PLAN FOR NEXT VISIT: Continue with walking in small spaces and turning, reaching for items with walker safely. SUBJECTIVE: Pt reports she went to the ER yesterday again, after falling in kitchen when she took out 2 dishes and turned to set them on the counter. She has a knot in back of head, she had MRI which is negative for bleed. Pain: Pain Pain Level: 5 Pain Location: Head - Left, Head - Right Description: Sore Post Treatment Pain Post Treatment Pain Level: No Change OBJECTIVE MEASURES WITH LEVEL OF FUNCTION: R foot lags behind with turning to sit down. Cues to pickle pumper feet. TREATMENT: Therapeutic Activity: 1: seated reaching for cones to and from walker to table 2: walking with rollator at counter opening cupboards and reaching for cones 3: facing counter (walker against counter) 1 hand on walker reaching for cone on shelf R/L hands. 4: standing reaching for foam roll placing from 1 surface to another 5x each hand- keeping 1 hand on walker at all times 5: sit to stands walking short distance and turning to sit again 3x Skilled Intervention: Proper patient guarding to prevent falls/increase patient safety with stand by assist to assist patient while performing reaching activity at counter. Activity progression based on professional judgment. Demonstration for proper technique of activity. Gait Trainin: Gait with turns in/out of tx rooms- cues to keep feet inside walker with turns 2: walking into tx room and closing door, backing up to sit down on table 2x 3: walking forward and backwards with rollator to target 10ft fw/bk 3x 4: fwd/backward walking at counter opening/closing cupboards- close SBA Skilled Intervention: Patient was provided stand by assist during pre-gait/gait training to prevent falls and insure safety. Education provided to patient regarding the proper sequence for turns and picking up right foot. Billing Therapeutic Activity Treatment Minutes: 20 Gait Training Treatment Minutes: 22 Skilled Treatment Time Minutes (timed and untimed codes): 42 Total Session Time (minutes): 42 Session Start Time : 1000 Session Stop Time : 104 Lyssa Kemp [facility] [place] 07-05-2023 History of Present illness Narrative Episode Visit Count: 6 Therapist That Will Accept/Oversee The Plan Of Care: Jesenia James Start of Care Date: 05/27/23 Onset Date: 05/27/19 Plan of Care Certification Date: 05/27/23 Next Certification Due Date: 08/25/23 Patient Identified by Name and Date of : Yes REHABILITATION AND SPORTS THERAPY PHYSICAL THERAPY TREATMENT NOTE ASSESSMENT: Ramos Padron tolerated the session with no issues. She presents with decreased safety at times during session with turning to sit pre maturely. Education on safety, keeping 1 hand on walker at all times if reaching for something.The patient will continue to benefit from ongoing skilled physical therapy to progress toward set goals. PLAN FOR NEXT VISIT: Continue with walking in small spaces and turning, reaching for items with walker safely. SUBJECTIVE: Pt reports she went to the ER yesterday again, after falling in kitchen when she took out 2 dishes and turned to set them on the counter. She has a knot in back of head, she had MRI which is negative for bleed. Pain: Pain Pain Level: 5 Pain Location: Head - Left, Head - Right Description: Sore Post Treatment Pain Post Treatment Pain Level: No Change OBJECTIVE MEASURES WITH LEVEL OF FUNCTION: R foot lags behind with turning to sit down. Cues to pickle pumper feet. TREATMENT: Therapeutic Activity: 1: seated reaching for cones to and from walker to table 2: walking with rollator at counter opening cupboards and reaching for cones 3: facing counter (walker against counter) 1 hand on walker reaching for cone on shelf R/L hands. 4: standing reaching for foam roll placing from 1 surface to another 5x each hand- keeping 1 hand on walker at all times 5: sit to stands walking short distance and turning to sit again 3x Skilled Intervention: Proper patient guarding to prevent falls/increase patient safety with stand by assist to assist patient while performing reaching activity at counter. Activity progression based on professional judgment. Demonstration for proper technique of activity. Gait Trainin: Gait with turns in/out of tx rooms- cues to keep feet inside walker with turns 2: walking into tx room and closing door, backing up to sit down on table 2x 3: walking forward and backwards with rollator to target 10ft fw/bk 3x 4: fwd/backward walking at counter opening/closing cupboards- close SBA Skilled Intervention: Patient was provided stand by assist during pre-gait/gait training to prevent falls and insure safety. Education provided to patient regarding the proper sequence for turns and picking up right foot. Billing Therapeutic Activity Treatment Minutes: 20 Gait Training Treatment Minutes: 22 Skilled Treatment Time Minutes (timed and untimed codes): 42 Total Session Time (minutes): 42 Session Start Time : 1000 Session Stop Time : 1042 Lyssa Kemp PTA documented in this encounter [facility] 06-28-2023 Note HNO ID: [id number] Author: JESENIA JAMES, PT, DPT Service: ? Author Type: Physical Therapist Type: Progress Notes Filed: 06/30/2023 17:11 Note Text: Episode Visit Count: 5 Therapist That Will Accept/Oversee The Plan Of Care: Jesenia James Start of Care Date: 05/27/23 Onset Date: 05/27/19 Plan of Care Certification Date: 05/27/23 Next Certification Due Date: 08/25/23 Patient Identified by Name and Date of : Yes REHABILITATION AND SPORTS THERAPY PHYSICAL THERAPY PROGRESS REPORT PLAN OF CARE UPDATE: Assessment: Ramos Padron demonstrates improvements in rising from a chair, standing, and walking. She has progressed toward goals. Patient continues to present with impairments in balance, gait, independence in exercise, overall function, and safety that interfere with standing, walking . Current prognosis is Fair due to: clinical presentation, chronic nature of impairments, learning impairments . She will benefit from continued skilled therapy services to meet the updated goals for this plan of care as noted below. Goals for Episode of Care: updated 06/28/23 Patient will perform sit to stand transfers with modified independence and improving safety with normal speed.--progresing Patient will ambulate with Ustep walker with stand by assist with minimal cues for proper use of device.--progressing Patient demonstrates independent and proper use of assistive device to allow for improved walking quality and safety therefore reducing the risk of falls.--progressing Patient will complete 10 reps on 30 second chair stand test to decrease risk of falls.--not met Pt will verbalize decrease fall frequency from daily--mild progression Patient Goals: Be more stable Planned Interventions, Frequency, and Duration: 1x/week, 4 weeks Total Number of Visits Planned: 4 Patient to be seen for Therapeutic exercise (98690), Neuromuscular re-education (60104), Manual therapy (67796), Therapeutic activities (85561), Self-nursing home management (80357), Gait Training (42345), Patient/Family/Caregiver Education PLAN FOR NEXT VISIT: Practice opening and closing doors, cupboard and doors with device safetly. Practice high level siting balance. Reaching in sitting. SUBJECTIVE: Went to ER Saturday after fall hurting low back. Just bruises. Since Saturday minimum of 5 fall. 1 sliding off seat in shower, 1 eyes closed in shower. 1 getting into freezer. 1 falling into hutch. feels its a bad week. Yesterday fell in bathroom.. Functional Limitations: standing, walking Pain: Pain Pain Level: 9 Pain Location: Back Description: Sore Frequency: Continuous Post Treatment Pain Post Treatment Pain Level: No Change PROMIS Scales 06/07/2023 Higher is Better Phys Func - Score 28 (severe dysfunction) Phys Func - Percentile 1 Self-Eff Symptom - Score 43 (Average) Self-Eff Symptom - Percentile 24 T-scores: mean of general population = 50. 5 points is clinically meaningfully difference Percentiles provide an indication of how the patient's score ranks in relation to the genera-l population. Higher percentile rankings indicate better function/quality of life. 50th percentile is the average of the general population and indicates half of respondents had a worse score. OBJECTIVE MEASURES WITH LEVEL OF FUNCTION: Cognition Cognition: Safety Judgement Safety Judgment: Decreased awarenss of need for safety, Impulsive, Limited insight to deficits, Needs cuing Posture / Alignment Posture: Rounded shoulders, Forward head Movement Description Festination Comments: no festination noted Mobility Sit To Stand: Contact Guard Assistance Stand To Sit: Contact Guard Assistance Gait Gait: Contact Guard Assistance Gait Device: U-Step Walker Gait Deviations: General Deviations General Deviations/Observations: Cesar decreased, Step length decreased, Improper distancing from assistive device Gait Observation: 1 timed needed cues to not abandon device Functional Performance Test Results Assistive Device: U-Step Walker 30 Second Chair Stand Test: 8 reps (braces legs on mat half of performance) 5 Times Sit to Stand Test : 18 sec Timed Up and Go (sec): 36 sec (good safety) Timed Up and Go Cognitive (sec): 34 sec Timed Up and Go Cognitive Comments: Dual task of conversation 4 Stage Balance Test Narrow base of support (sec): 10 sec Semi-tandem base of support (sec): 10 sec Tandem base of support (sec): 10 sec Single leg stance - right (sec): 23 sec Single leg stance - left (sec): 6 sec TREATMENT: Therapeutic Exercise: 1: Reassessment completed Skilled Intervention: Proper technique AND skills to assess ROM AND strength to properly adjust plan of care. Neuromuscular Re-Education: 1: Outcomes completed 2: Education: Safe device use; using handicap bathroom in home for easier access; easier clothing; waiting for assistance with hard tasks; problem solving for (more content not included)... [facility] 06-28-2023 History of Present illness Narrative Images from the original note were not included. Episode Visit Count: 5 Therapist That Will Accept/Oversee The Plan Of Care: Jesenia James Start of Care Date: 05/27/23 Onset Date: 05/27/19 Plan of Care Certification Date: 05/27/23 Next Certification Due Date: 08/25/23 Patient Identified by Name and Date of : Yes REHABILITATION AND SPORTS THERAPY PHYSICAL THERAPY PROGRESS REPORT PLAN OF CARE UPDATE: Assessment: Ramos Padron demonstrates improvements in rising from a chair, standing, and walking. She has progressed toward goals. Patient continues to present with impairments in balance, gait, independence in exercise, overall function, and safety that interfere with standing, walking . Current prognosis is Fair due to: clinical presentation, chronic nature of impairments, learning impairments . She will benefit from continued skilled therapy services to meet the updated goals for this plan of care as noted below. Goals for Episode of Care: updated 06/28/23 Patient will perform sit to stand transfers with modified independence and improving safety with normal speed.--progresing Patient will ambulate with Ustep walker with stand by assist with minimal cues for proper use of device.--progressing Patient demonstrates independent and proper use of assistive device to allow for improved walking quality and safety therefore reducing the risk of falls.--progressing Patient will complete 10 reps on 30 second chair stand test to decrease risk of falls.--not met Pt will verbalize decrease fall frequency from daily--mild progression Patient Goals: Be more stable Planned Interventions, Frequency, and Duration: 1x/week, 4 weeks Total Number of Visits Planned: 4 Patient to be seen for Therapeutic exercise (57670), Neuromuscular re-education (39684), Manual therapy (60599), Therapeutic activities (84638), Self-nursing home management (53390), Gait Training (36908), Patient/Family/Caregiver Education PLAN FOR NEXT VISIT: Practice opening and closing doors, cupboard and doors with device safetly. Practice high level siting balance. Reaching in sitting. SUBJECTIVE: Went to ER Saturday after fall hurting low back. Just bruises. Since Saturday minimum of 5 fall. 1 sliding off seat in shower, 1 eyes closed in shower. 1 getting into freezer. 1 falling into hutch. feels its a bad week. Yesterday fell in bathroom.. Functional Limitations: standing, walking Pain: Pain Pain Level: 9 Pain Location: Back Description: Sore Frequency: Continuous Post Treatment Pain Post Treatment Pain Level: No Change PROMIS Scales 06/07/2023 Higher is Better Phys Func - Score 28 (severe dysfunction) Phys Func - Percentile 1 Self-Eff Symptom - Score 43 (Average) Self-Eff Symptom - Percentile 24 T-scores: mean of general population = 50. 5 points is clinically meaningfully difference Percentiles provide an indication of how the patient's score ranks in relation to the genera-l population. Higher percentile rankings indicate better function/quality of life. 50th percentile is the average of the general population and indicates half of respondents had a worse score. OBJECTIVE MEASURES WITH LEVEL OF FUNCTION: Cognition Cognition: Safety Judgement Safety Judgment: Decreased awarenss of need for safety, Impulsive, Limited insight to deficits, Needs cuing Posture / Alignment Posture: Rounded shoulders, Forward head Movement Description Festination Comments: no festination noted Mobility Sit To Stand: Contact Guard Assistance Stand To Sit: Contact Guard Assistance Gait Gait: Contact Guard Assistance Gait Device: U-Step Walker Gait Deviations: General Deviations General Deviations/Observations: Cesar decreased, Step length decreased, Improper distancing from assistive device Gait Observation: 1 timed needed cues to not abandon device Functional Performance Test Results Assistive Device: U-Step Walker 30 Second Chair Stand Test: 8 reps (braces legs on mat half of performance) 5 Times Sit to Stand Test : 18 sec Timed Up and Go (sec): 36 sec (good safety) Timed Up and Go Cognitive (sec): 34 sec Timed Up and Go Cognitive Comments: Dual task of conversation 4 Stage Balance Test Narrow base of support (sec): 10 sec Semi-tandem base of support (sec): 10 sec Tandem base of support (sec): 10 sec Single leg stance - right (sec): 23 sec Single leg stance - left (sec): 6 sec TREATMENT: Therapeutic Exercise: 1: Reassessment completed Skilled Intervention: Proper technique & skills to assess ROM & strength to properly adjust plan of care. Neuromuscular Re-Education: 1: Outcomes completed 2: Education: Safe device use; using handicap bathroom in home for easier access; easier clothing; waiting for assistance with hard tasks; problem solving for falls Skilled Intervention: Proper implementation of objective outcomes with explanation of findings/deficits. Proper patient guarding to prevent falls/increase patient safety. Education as above Billing Therapeutic Activity Treatment Minutes: 10 Neuromuscular Re-Education Treatment Minutes: 35 Skilled Treatment Time Minutes (timed and untimed codes): 45 Total Session Time (minutes): 47 Session Start Time : 1045 Session Stop Time : 1132 Jesenia James PT, DPT documented in this encounter [facility] 06-25-2023 Discharge summary Note Date/Time June 25, 2023 4:44pm [facility] Medical Records Department [address] [place] [address] Emergency Department Summary 06/25/23 MR#: [id number] Acct: [id number] Name: RAMOS PADRON Rep #:[id number] : [id number] 78 From: Louie Manzo MD PCP: Dr. Dmitry Burk MD Status:PRE ER Location: ED HPI HPI - Fall History of Present Illness Chief Complaint: Fall Detail of Chief Complaint: Fall due to Parkinson's Informant: patient and spouse/S.O. Occured/Mechanism Occurred: Days (This occurred on Saturday, June 21) Mechanism/Context: Yes same level fall Narrative: Patient fell due to her Parkinson's disease. This is a common occurrence. Pain/Injury Location: Lumbar sacral region Quality of Pain: Dull and Aching Current Severity: Mild Maximum Severity: Moderate Worsened by: Sitting and movement Relieved by: Nothing Associated Symptoms Associated Symptoms: Negative for Parasthesias, Weakness, Loss of function, Inability to ambulate, Loss of consciousness or Amnesia Narrative Narrative: Patient is a 78-year-old woman. She had a mechanical fall this past Saturday. She landed on the edge of the shower. She complains of pain lower back region. She has done nothing for the pain or taken anything for the pain. She denies bowel bladder dysfunction. She denies blood in her urine. She denies radicularpain. She denies numbness or tingling in her buttocks area or legs. She deniesbruising easily. She is not on anticoagulant. Prior similar symptoms: Yes Recent Illness/Hospitalization: No PFSH PFSH Medical History Abnormal bruising Acute bronchitis, unspecified Back pain Carpal tunnel syndrome De Quervain's tenosynovitis, right Difficulty balancing Encounter for screening for malignant neoplasm of lung in former smoker who quitin past 15 years with 30 pack year history or greater Endometrial cancer Fatigue High cholesterol History of tobacco use Hypertension Migraines Osteoarthritis of carpometacarpal joint of right thumb Parkinson disease Right hand pain Shoulder pain URI (upper respiratory infection) Uterine cancer Home Medications carbidopa 25 mg-levodopa 100 mg tablet 1 tab PO BID parkisons 11/22/21 [History Last Taken Unknown] acetaminophen 500 mg tablet 1,000 mg (2 x 500 mg) PO Q6H PRN PRN Pain Score 1-10#0 tabs 11/29/21 [Rx Last Taken Unknown] cholecalciferol (vitamin D3) 50 mcg (2,000 unit) capsule (D3-2000) 50 mcg PO DAILY 03/16/22 [History Last Taken Unknown] rosuvastatin 10 mg tablet 10 mg PO DAILY 01/15/23 [History Last Taken Unknown] hydrocodone-acetaminophen 5-325mg 5mg-325mg 1 tab PO Q6H PRN PRN Pain 3 days #10TABLETS 06/25/23 [Rx Last Taken Unknown] Allergy/AdvReac Type Severity Reaction Status Date / Time No Known Allergies Allergy Verified 06/25/23 16:11 Family History Mother CVA (cerebral vascular accident) Hypertension Arthritis Heart disease Father Cancer Skin cancer Sister CVA (cerebral vascular accident) Hypertension Brother Hypertension CVA (cerebral vascular accident) Surgical History H/O: hysterectomy History of hip surgery History of left hip replacement History of left shoulder replacement Social History household members: spouse housing: house Smoking Status: Former smoker quit date: 01/02/15 pack-years: 40 Tobacco: How many years used: 40 Electronic Cigarette Use: not used second hand exposure: Yes quit status: has quit before alcohol intake: never what type of physical activity do you participate in: walking and other details: golf do you feel safe at home: Yes ROS ROS ED Constitutional Constitutional ED: Denies chills or fever(s) Eyes Eyes: Denies blurry vision or change in vision Genitourinary Genitourinary ED: Denies hematuria Musculoskeletal Musculoskeletal: Reports back pain; Denies arthralgias, myalgias or neck pain Integumentary Denies rash Neurologic Neurologic: Denies paresthesias or weakness Hematologic/Lymphatic Hematologic/Lymphatic: Denies easy bleeding or easy bruising EXAM Physical Exam Const Vital Signs: 06/25/23 16:12 06/25/23 16:19 Temperature 97.7 F L Temperature Source Temporal Pulse Rate 83 Respiratory Rate 18 Respiratory Effort Normal Respiratory Depth Normal Respiratory Pattern Normal Blood Pressure 129/79 H Blood Pressure Mean 95 Pulse Ox 96 Oxygen Delivery Method Room Air Room Air Positive well nourished and well developed General Appearance ED: well developed and NAD HEENT Reports normocephalic HEENT Narrative: Ears are normal. Nares patent. Eyes PERRL and EOMs intact bilaterally General Eye ED: Negative for scleral icterus Neck full ROM, no lymphadenopathy and supple Resp normal respiratory effort, no retractions and clear to auscultation bilaterally Cardio regular rate, regular rhythm, S1 normal heart sound and no murmurs GI non-tender, non-distended and no masses Auscultation: normoactive bowel sounds Palpation: soft Back/Spine no CVA tenderness Thoracic Spine / Upper Back: pain with ROM; Negative for ROM limited or thoracicspinal tenderness Lumbar Spine / Lower Back: lumbar spinal tenderness and paraspinal muscle tenderness Extremity Extremity Narrative: There is no swelling, discoloration and DP pulses palpable bilaterally. Neuro oriented x3, CN's II-XII intact bilaterally, moves all extremities, no focal motor deficits and no sensory deficits noted Anna Coma Scale: document GCS findings Oriented Sensorium / Orientation: alert Psych mental status grossly normal and thought process normal Skin Lesions: no lesions Rashes: no rashes Trauma: Negative for abrasion MDM MDM MDM Narrative Medical decision making narrative: Patient denies history of osteoporosis osteopenia. Since she is complaining of midline pain status post trauma and no improvement in several days will obtain x-rays to evaluate for compression fracture. Differential diagnosis is contusion versus fracture. Patient declined pain medicine. Radiography Chest X-Ray - ED: Read by ED Physician (Three-view x-ray of the LS-spine is dependently reviewed interpreted by me is negative for any acute process. Thereis degenerative changes. There is atherosclerotic changes noted in the aorta. There is slight compression of L2. This is unchanged from CAT scan performed May 25, 2022. Patient ) Treatment and Re-Evaluation Narrative: Patient was informed the results. Patient was discharged home with appropriate home-going instructions. Patient would like something now for pain and something to go home with. Discharge Plan Triage Chief Complaint: Fall ED Provider: Louie Manzo Dx/Rx/DC Orders Clinical Impression: Injury due to fall, DDD (degenerative disc disease), lumbar, Parkinson's disease, Contusion of lower back and pelvis, initial encounter, Atherosclerotic cardiovascular disease Instructions: ED Back Contusion Prescriptions: New hydrocodone-acetaminophen [hydrocodone-acetaminophen] 5-325 mg tablet 1 tab PO Q6H PRN PRN (Reason: Pain) 3 Days Qty: 10 0RF No Action cholecalciferol (vitamin D3) [D3-2000] 50 mcg (2,000 unit) capsule 50 mcg PO DAILY carbidopa-levodopa 25-100 mg tablet 1 tab PO BID acetaminophen 500 mg Tablet 1,000 mg PO Q6H PRN PRN (Reason: Pain Score 1-10) Qty: 0 0RF rosuvastatin 10 mg tablet 10 mg PO DAILY Patient Comments: take 1 tablet by mouth once daily Primary Care Provider: Dmitry Burk Referrals: Dmitry Burk MD [Primary Care Provider] - 1 Week if not improving Disposition Disposition: Home, Self Care What to do if you have Problems For any increased pain, shortness of breath, bleeding, nausea or vomiting, chestpain, or any unexpected problems, contact your Primary Care Provider. Call [facility] ([phone]) or report to the closest Emergency Room. Call 911 if necessary. 06/25/23 1715 <Electronically signed by Louie Manzo MD> Cosigner Signature (if applicable): CC: Dr. Dmitry Burk MD ~ Signed [facility] Work Phone: 1(554) 490-428304-19-2024 NoteHNO ID: [id number] Author: LYSSA KEMP PTA Service: ? Author Type: Combiner Operator Type: Progress Notes Filed: 06/21/2023 11:45 Note Text: Episode Visit Count: 4 Therapist That Will Accept/Oversee The Plan Of Care: Jesenia James Start of Care Date: 05/27/23 Onset Date: 05/27/19 Plan of Care Certification Date: 05/27/23 Next Certification Due Date: 08/25/23 Patient Identified by Name and Date of : Yes REHABILITATION AND SPORTS THERAPY PHYSICAL THERAPY TREATMENT NOTE ASSESSMENT: Ramos Padron tolerated the session with no issues. She demonstrated difficulty with tandem stance. Increased weight bearing through heels with sit to stands, improves with cues. The patient will continue to benefit from ongoing skilled physical therapy for reassessment by supervising therapist. PLAN FOR NEXT VISIT: Continue safety training, gait, transfers SUBJECTIVE: Pt fell this morning standing up from toilet, did not hold onto rails and fell. States my is so mad at me Pain: Pain Pain Level: 3 Pain Location: Low Back/Lumbar Spine- Midline, Leg - Left, Leg - Right Post Treatment Pain Post Treatment Pain Level: No Change OBJECTIVE MEASURES WITH LEVEL OF FUNCTION: Gait: U step walker, slow pace, narrow base of support TREATMENT: Therapeutic Exercise: 1: Nu step 5 min for AROM 2: Bridges 10x 3: SLR 10x Skilled Intervention: Patient was educated in proper exercise technique and purpose for exercises. Skilled judgment was used in selection of appropriate interventions. Correct performance of therapeutic exercises was facilitated with verbal and visual cuing. Therapeutic Activity: 1: sit to supine 3x with log roll technique, raised table to simulate bed height at home 2: scooting along side of mat table 3: 5x2 sit to stand - cues for leaning forward focusing on weight shifting forward vs onto heels Skilled Intervention: Proper patient guarding to prevent falls/increase patient safety with stand by assist to assist patient while performing rolling on mat table. Educated on proper/safe technique for activities performed today. Neuromuscular Re-Education: 1: feet together/tandem chest press/overhead/rotation with ball- 5x each way CGA to close SBA L in front more challenging 2: slow may 1 hand support on walker 10x each 3: standing turn 360 degrees no support 2x Skilled Intervention: Skilled judgment used to assess appropriate program for balance and coordination activity. Education and demonstration for posture and positioning for tone management. Gait Trainin: walking in/out of rooms and turning staying inside walker SBA 2: walking forward/backward to target 4x, cues to widen stance when stepping backwards 3: figure 8s around cones 4: 180ft with postural cues and to increase heel strike SBA Skilled Intervention: Patient was provided contact guard assistance during pre-gait/gait training to prevent falls and insure safety. Therapeutic Exercise Treatment minutes: 15 Billing Therapeutic Activity Treatment Minutes: 5 Neuromuscular Re-Education Treatment Minutes: 10 Gait Training Treatment Minutes: 15 Skilled Treatment Time Minutes (timed and untimed codes): 45 Total Session Time (minutes): 45 Session Start Time : 910 Session Stop Time : 955 Lyssa Kemp [facility]04-19-2024 History of Present illness Narrative* Lyssa Kemp PTA - 06/21/2023 9:13 AM EDT Episode Visit Count: 4 Therapist That Will Accept/Oversee The Plan Of Care: Jesenia James Start of Care Date: 05/27/23 Onset Date: 05/27/19 Plan of Care Certification Date: 05/27/23 Next Certification Due Date: 08/25/23 Patient Identified by Name and Date of : Yes REHABILITATION AND SPORTS THERAPY PHYSICAL THERAPY TREATMENT NOTE ASSESSMENT: Ramos Padron tolerated the session with no issues. She demonstrated difficulty with tandem stance. Increased weight bearing through heels with sit to stands, improves with cues. The patient will continue to benefit from ongoing skilled physical therapy for reassessment by supervising therapist. PLAN FOR NEXT VISIT: Continue safety training, gait, transfers SUBJECTIVE: Pt fell this morning standing up from toilet, did not hold onto rails and fell. States my is so mad at me Pain: Pain Pain Level: 3 Pain Location: Low Back/Lumbar Spine- Midline, Leg - Left, Leg - Right Post Treatment Pain Post Treatment Pain Level: No Change OBJECTIVE MEASURES WITH LEVEL OF FUNCTION: Gait: U step walker, slow pace, narrow base of support TREATMENT: Therapeutic Exercise: 1: Nu step 5 min for AROM 2: Bridges 10x 3: SLR 10x Skilled Intervention: Patient was educated in proper exercise technique and purpose for exercises. Skilled judgment was used in selection of appropriate interventions. Correct performance of therapeutic exercises was facilitated with verbal and visual cuing. Therapeutic Activity: 1: sit to supine 3x with log roll technique, raised table to simulate bed height at home 2: scooting along side of mat table 3: 5x2 sit to stand - cues for leaning forward focusing on weight shifting forward vs onto heels Skilled Intervention: Proper patient guarding to prevent falls/increase patient safety with stand by assist to assist patient while performing rolling on mat table. Educated on proper/safe technique for activities performed today. Neuromuscular Re-Education: 1: feet together/tandem chest press/overhead/rotation with ball- 5x each way CGA to close SBA L in front more challenging 2: slow may 1 hand support on walker 10x each 3: standing turn 360 degrees no support 2x Skilled Intervention: Skilled judgment used to assess appropriate program for balance and coordination activity. Education and demonstration for posture and positioning for tone management. Gait Trainin: walking in/out of rooms and turning staying inside walker SBA 2: walking forward/backward to target 4x, cues to widen stance when stepping backwards 3: figure 8s around cones 4: 180ft with postural cues and to increase heel strike SBA Skilled Intervention: Patient was provided contact guard assistance during pre- gait/gait training to prevent falls and insure safety. Therapeutic Exercise Treatment minutes: 15 Billing Therapeutic Activity Treatment Minutes: 5 Neuromuscular Re-Education Treatment Minutes: 10 Gait Training Treatment Minutes: 15 Skilled Treatment Time Minutes (timed and untimed codes): 45 Total Session Time (minutes): 45 Session Start Time : 910 Session Stop Time : 955 Lyssa Kemp PTA [facility] NoteHNO ID: [id number] Author: LYSSA KEMP PTA Service: ? Author Type: Combiner Operator Type: Progress Notes Filed: 06/14/2023 11:44 Note Text: Episode Visit Count: 3 Therapist That Will Accept/Oversee The Plan Of Care: Jesenia James Start of Care Date: 05/27/23 Onset Date: 05/27/19 Plan of Care Certification Date: 05/27/23 Next Certification Due Date: 08/25/23 Patient Identified by Name and Date of : Yes REHABILITATION AND SPORTS THERAPY PHYSICAL THERAPY TREATMENT NOTE ASSESSMENT: Ramos Padron tolerated the session with no issues. Educated on safety with mobility in house, getting out of car, instructed to always have walker at all times.The patient will continue to benefit from ongoing skilled physical therapy to progress toward set goals. PLAN FOR NEXT VISIT: Continue safety training, gait, transfers SUBJECTIVE: Pt and reports she fell on saturday getting out of the car and fell on her face. No injuries just scraped face. Walker was not infront of her. Pain: Pain Pain Level: 5 Pain Location: Low Back/Lumbar Spine- Midline, Leg - Left, Leg - Right Post Treatment Pain Post Treatment Pain Level: No Change OBJECTIVE MEASURES WITH LEVEL OF FUNCTION: 1 episode of turning to sit to quickly, otherwise slow and controlled during activity today. TREATMENT: Therapeutic Exercise: 1: Nu step L4. 6 min for AROM 2: 10x sit to stand with outstretched arms Skilled Intervention: Patient was educated in proper exercise technique and purpose for exercises. Skilled judgment was used in selection of appropriate interventions. Correct performance of therapeutic exercises was facilitated with verbal and visual cuing. Therapeutic Activity: 1: bed mobility practice, rolling R/L log roll technique 2: scooting along side of mat table Skilled Intervention: Proper patient guarding to prevent falls/increase patient safety with stand by assist to assist patient while performing activity. Educated on proper/safe technique for activities performed today. Activity progression based on professional judgment. Gait Trainin: Walking with rollator SBA , cues for pace and to stay inside with turns 150ftt 2: walking in and out of tx room 2x navigating obstacles on the way to table. 3: sit to stand walking forward to target and backwards 3x 4: sit to stand walking around target ands back 3x. SBA 5: figure 8s around obstacles Skilled Intervention: Facilitated proper gait cycle with the use of verbal cues for correction of gait deviations identified in the objective section above. Education provided to patient regarding the proper sequence with turning. Billing Therapeutic Activity Treatment Minutes: 10 Gait Training Treatment Minutes: 25 Skilled Treatment Time Minutes (timed and untimed codes): 43 Total Session Time (minutes): 43 Session Start Time : 09 Session Stop Time : 1000 Therapeutic exercise: 8 Lyssa Kemp [facility]04-12-2024 [facility] of Present illness [facility]ative[facility]16 AM EDT Episode Visit Count: 3 Therapist That Will Accept/Oversee The Plan Of Care: Jesenia James Start of Care Date: 05/27/23 Onset Date: 05/27/19 Plan of Care Certification Date: 05/27/23 Next Certification Due Date: 08/25/23 Patient Identified by Name and Date of : Yes REHABILITATION AND SPORTS THERAPY PHYSICAL THERAPY TREATMENT NOTE ASSESSMENT: Ramos Padron tolerated the session with no issues. Educated on safety with mobility in house, getting out of car, instructed to always have walker at all times.The patient will continue to benefit from ongoing skilled physical therapy to progress toward set goals. PLAN FOR NEXT VISIT: Continue safety training, gait, transfers SUBJECTIVE: Pt and reports she fell on saturday getting out of the car and fell on her face.No injuries just scraped face. Walker was not infront of her. Pain: Pain Pain Level: 5 Pain Location: Low Back/Lumbar Spine- Midline, Leg - Left, Leg - Right Post Treatment Pain Post Treatment Pain Level: No Change OBJECTIVE MEASURES WITH LEVEL OF FUNCTION: 1 episode of turning to sit to quickly, otherwise slow and controlled during activity today. TREATMENT: Therapeutic Exercise: 1: Nu step L4. 6 min for AROM 2: 10x sit to stand with outstretched arms Skilled Intervention: Patient was educated in proper exercise technique and purpose for exercises. Skilled judgment was used in selection of appropriate interventions. Correct performance of therapeutic exercises was facilitated with verbal and visual cuing. Therapeutic Activity: 1: bed mobility practice, rolling R/L log roll technique 2: scooting along side of mat table Skilled Intervention: Proper patient guarding to prevent falls/increase patient safety with stand by assist to assist patient while performing activity. Educated on proper/safe technique for activities performed today. Activity progression based on professional judgment. Gait Trainin: Walking with rollator SBA , cues for pace and to stay inside with turns 150ftt 2: walking in and out of tx room 2x navigating obstacles on the way to table. 3: sit to stand walking forward to target and backwards 3x 4: sit to stand walking around target ands back 3x. SBA 5: figure 8s around obstacles Skilled Intervention: Facilitated proper gait cycle with the use of verbal cues for correction of gait deviations identified in the objective section above. Education provided to patient regarding the proper sequence with turning. Billing Therapeutic Activity Treatment Minutes: 10 Gait Training Treatment Minutes: 25 Skilled Treatment Time Minutes (timed and untimed codes): 43 Total Session Time (minutes): 43 Session Start Time : 916 Session Stop Time : 1000 Therapeutic exercise: 8 Lyssa Kemp PTA documented in this encounterUniversity [facility]als [facility]04-05-2024 NoteHNO ID: [id number] Author: LYSSA KEMP PTA Service: ? Author Type: Combiner Operator Type: Progress Notes Filed: 06/07/2023 12:29 Note Text: Episode Visit Count: 2 Therapist That Will Accept/Oversee The Plan Of Care: Jesenia James Start of Care Date: 05/27/23 Onset Date: 05/27/19 Plan of Care Certification Date: 05/27/23 Next Certification Due Date: 08/25/23 Patient Identified by Name and Date of : Yes REHABILITATION AND SPORTS THERAPY PHYSICAL THERAPY TREATMENT NOTE ASSESSMENT: Ramos Padron tolerated the session well today, following cues and moved slowly throughout all activity. The patient will continue to benefit from ongoing skilled physical therapy to progress toward set goals. PLAN FOR NEXT VISIT: Continue safety training, gait, transfers SUBJECTIVE: Pt reports her legs and back are in pain. She has had 2 falls since last visit, 1 being backing up while in the bathroom. Pain: Pain Pain Level: 6 Pain Location: Low Back/Lumbar Spine- Midline, Leg - Left, Leg - Right Post Treatment Pain Post Treatment Pain Level: No Change OBJECTIVE MEASURES WITH LEVEL OF FUNCTION: Gait: SBA with rollator, slow cesar. TREATMENT: Therapeutic Activity: 1: sit to stand 10x no hands 2: standing walking forward/backward and sit 5x with U step 3: standing and walking to chair, turning and sitting in small space 3x 4: standing with U step turning to pickle pumper cones and reaching to set on table - 1 hand on walker 5: 6 step ups B rails 10x Skilled Intervention: Proper patient guarding to prevent falls/increase patient safety with stand by assist to assist patient while performing activity safely and staying inside walker. Educated on proper/safe technique for activities performed today. Activity progression based on professional judgment. Gait Trainin: Walking in figure 8s around cones with U step walker 2x through for walker manueverability 2: walking in tx rooms and turning around in small space-slight hesistation with turn inside walker Skilled Intervention: Patient was provided stand by assist during pre-gait/gait training to prevent falls and insure safety. Education provided to patient regarding the proper sequence for turning in small space. Billing Therapeutic Activity Treatment Minutes: 34 Gait Training Treatment Minutes: 10 Skilled Treatment Time Minutes (timed and untimed codes): 44 Total Session Time (minutes): 44 Session Start Time : 917 Session Stop Time : 1002 Lyssa Kemp PTAOhiohealth O'Bleness [id number] History of Present illness Narrative* Lyssa Kemp PTA - 06/07/2023 9:19 AM EDT Episode Visit Count: 2 Therapist That Will Accept/Oversee The Plan Of Care: Jesenia James Start of Care Date: 05/27/23 Onset Date: 05/27/19 Plan of Care Certification Date: 05/27/23 Next Certification Due Date: 08/25/23 Patient Identified by Name and Date of : Yes REHABILITATION AND SPORTS THERAPY PHYSICAL THERAPY TREATMENT NOTE ASSESSMENT: Ramos Padron tolerated the session well today, following cues and moved slowly throughout all activity. The patient will continue to benefit from ongoing skilled physical therapy to progress toward set goals. PLAN FOR NEXT VISIT: Continue safety training, gait, transfers SUBJECTIVE: Pt reports her legs and back are in pain. She has had 2 falls since last visit, 1 beingbacking up while in the bathroom. Pain: Pain Pain Level: 6 Pain Location: Low Back/Lumbar Spine- Midline, Leg - Left, Leg - Right Post Treatment Pain Post Treatment Pain Level: No Change OBJECTIVE MEASURES WITH LEVEL OF FUNCTION: Gait: SBA with rollator, slow cesar. TREATMENT: Therapeutic Activity: 1: sit to stand 10x no hands 2: standing walking forward/backward and sit 5x with U step 3: standing and walking to chair, turning and sitting in small space 3x 4: standing with U step turning to pickle pumper cones and reaching to set on table - 1 hand on walker 5: 6 step ups B rails 10x Skilled Intervention: Proper patient guarding to prevent falls/increase patient safety with stand by assist to assist patient while performing activity safely and staying inside walker. Educated on proper/safe technique for activities performed today. Activity progression based on professional judgment. Gait Trainin: Walking in figure 8s around cones with U step walker 2x through for walker manueverability 2: walking in tx rooms and turning around in small space-slight hesistation with turn inside walker Skilled Intervention: Patient was provided stand by assist during pre-gait/gait training to preventfalls and insure safety. Education provided to patient regarding the proper sequence for turning in small space. Billing Therapeutic Activity Treatment Minutes: 34 Gait Training Treatment Minutes: 10 Skilled Treatment Time Minutes (timed and untimed codes): 44 Total Session Time (minutes): 44 Session Start Time : 917 Session Stop Time : 1001 Lyssa Kemp PTA documented in this encounterUniversity Hospitals [facility]03-25-2024 NoteHNO ID: [id number] Author: JESENIA JAMES, PT, DPT Service: ? 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 She presents with impairments in balance, gait, independence in exercise, overall function, and safety. Patient did not complete the PROMIS? (Patient Reported Outcome Measures Information System). Prognosis for therapy is Fair due to: clinical presentation, chronic nature of impairments, learning impairments . She will benefit from skilled therapy services to meet the goals established for this plan of care as noted below. Goals for Episode of Care: created on 05/27/23 through 08/25/23 Patient will perform sit to stand transfers with modified independence and improving safety with normal speed. Patient will ambulate with Ustep walker with stand by assist with minimal cues for proper use of device. Patient demonstrates independent and proper use of assistive device to allow for improved walking quality and safety therefore reducing the risk of falls. Patient will complete 10 reps on 30 second chair stand test to decrease risk of falls. Pt will verbalize decrease fall frequency from daily Patient Goals: Be more stable Planned Interventions, Frequency, and Duration: Current Frequency: 1x/week Duration: 8 weeks Total Number of Visits Planned: 8 Planned Treatment Interventions: Therapeutic exercise (23531), Neuromuscular re-education (65219), Manual therapy (46630), Therapeutic activities (98778), Self-nursing home management (66695), Gait Training (46983), Patient/Family/Caregiver Education PLAN FOR NEXT VISIT: PROMIS if able. Safety training. Work on standing and moving from chair to chair, turning to sit, navigating obstacles, in/out of doorways, reaching with device. Focus on slow gait and staying in bounds of rollator. Limit traditional ther ex/strengthening etc if able. Patient demonstrates good understanding of plan of care and treatment. The above goals and plan of care were discussed and agreed upon by patient/family. SUBJECTIVE: Pt with PSP. Falling daily. Using Ustep walker all the time. Goes to [employer] [facility] class 1 x per week and adult day care 2 x per week. Falls when stepping back, reaching, getting up from bed. 60% of falls are to L side. Biggest issue is moves way to fast. tries to help her. Doesn't listen to cues. Doesn't follow advice for safety from . Patient Goals: Be more stable Functional Limitations: standing, walking Prior Level of Function: Required assistance Required assistance with: ADL's, Instrumental ADL's Prior Functional Level Comments: Drying in shower; washing back Relevant History Past Relevant Medical Conditions: Falls Employment: Retired Recreation / Current Exercise: 1 day per week at [employer] class Hobbies / Interests: Golf Home Environment Patient Lives With: Spouse Assistance Available: (Mobile home) Equipment Owned: Grab Bars- Shower, Grab Bars- Toilet Intake Information: Prescription present Previous Treatment: Physical Therapy Falls Interview: Two or more falls in the last year, Uses an assistive device Falls Intervention: More thorough falls assessment to be performed Pain: Pain Pain Level: 0 Post Treatment Pain Post Treatment Pain Level: 0 PROMIS Scales T-scores: mean of general population = 50. 5 points is clinically meaningfully difference Percentiles provide an indication of how the patient's score ranks in relation to the general population. Higher percentile rankings indicate better function/quality of life. 50th percentile is the average of the general population and indicates half of respondents had a worse score. OBJECTIVE MEASURES WITH LEVEL OF FUNCTION: Cognition Cognition: Safety Judgement Safety Judgment: Decreased awarenss of need for safety, Impulsive, Limited insight to deficits, Needs cuing Posture / Alignment Posture: Rounded shoulders, Forward head LE Strength R LE Strength: Functionally appears WNL L LE Strength: Functionally appears WNL Movement Description Movement Impairment(s): Festination Mobility Sit To Stand: Contact Guard Assistance Stand To Sit: Contact Guard Assistance Gait Gait: Contact Guard Assistance Gait Device: U-Step Walker Gait Deviations: General Deviations General Deviations/Observations: Cesar decreased, Step length decreased, Improper distancing from assistive device Gait Observation: cues to stop when (more content not included)...[facility] [id number] History of Present illness Narrative* Jesenia James, PT, DPT - 05/27/2023 12:50 PM EDT Episode Visit Count: 1 Therapist That Will Accept/Oversee The Plan Of Care: Jesenia James Start of Care Date: 05/27/23 Onset Date: 05/27/19 Plan of Care Certification Date: 05/27/23 Next Certification Due Date: 08/25/23 Patient Identified by Name and Date of : Yes REHABILITATION AND SPORTS THERAPY PHYSICAL THERAPY EVALUATION PLAN OF CARE: Assessment: Ramos Padron presents with 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 She presents with impairments in balance, gait, independence in exercise, overall function, and safety. Patient did not complete the PROMIS (Patient Reported Outcome Measures Information System). Prognosis for therapy is Fair due to: clinical presentation, chronic nature of impairments, learning impairments . She will benefit from skilled therapy services to meet the goals established for this plan of care as noted below. Goals for Episode of Care: created on 05/27/23 through 08/25/23 Patient will perform sit to stand transfers with modified independence and improving safety with normal speed. Patient will ambulate with Ustep walker with stand by assist with minimal cues for proper use of device. Patient demonstrates independent and proper use of assistive device to allow for improved walking quality and safety therefore reducing the risk of falls. Patient will complete 10 reps on 30 second chair stand test to decrease risk of falls. Pt will verbalize decrease fall frequency from daily Patient Goals: Be more stable Planned Interventions, Frequency, and Duration: Current Frequency: 1x/week Duration: 8 weeks Total Number of Visits Planned: 8 Planned Treatment Interventions: Therapeutic exercise (59008), Neuromuscular re- education (75108), Manual therapy (75684), Therapeutic activities (30987), Self- nursing home management (98021), Gait Training (38179), Patient/Family/Caregiver Education PLAN FOR NEXT VISIT: PROMIS if able. Safety training. Work on standing and moving from chair to chair, turning to sit, navigating obstacles, in/out of doorways, reaching with device. Focus on slow gait and staying in bounds of rollator. Limit traditional ther ex/strengthening etc if able. Patient demonstrates good understanding of plan of care and treatment. The above goals and plan of care were discussed and agreed upon by patient/family. SUBJECTIVE: Pt with PSP. Falling daily. Using Ustep walker all the time. Goes to [employer] ex class 1 x per week and adult day care 2 x per week. Falls when stepping back, reaching, getting up from bed. 60% of falls are to L side. Biggest issue is moves way to fast. tries to help her. Doesn't listen to cues. Doesn't follow advice for safety from . Patient Goals: Be more stable Functional Limitations: standing, walking Prior Level of Function: Required assistance Required assistance with: ADL's, Instrumental ADL's Prior Functional Level Comments: Drying in shower; washing back Relevant History Past Relevant Medical Conditions: Falls Employment: Retired Recreation / Current Exercise: 1 day per week at [employer] class Hobbies / Interests: [employer] Home Environment Patient Lives With: Spouse Assistance Available: (Mobile home) Equipment Owned: Grab Bars- Shower, Grab Bars- Toilet Intake Information: Prescription present Previous Treatment: Physical Therapy Falls Interview: Two or more falls in the last year, Uses an assistive device Falls Intervention: More thorough falls assessment to be performed Pain: Pain Pain Level: 0 Post Treatment Pain Post Treatment Pain Level: 0 PROMIS Scales T-scores: mean of general population = 50. 5 points is clinically meaningfully difference Percentiles provide an indication of how the patient's score ranks in relation to the general population. Higher percentile rankings indicate better function/quality of life. 50th percentile is the average of the general population and indicates half of respondents had a worse score. OBJECTIVE MEASURES WITH LEVEL OF FUNCTION: Cognition Cognition: Safety Judgement Safety Judgment: Decreased awarenss of need for safety, Impulsive, Limited insight to deficits, Needs cuing Posture / Alignment Posture: Rounded shoulders, Forward head LE Strength R LE Strength: Functionally appears WNL L LE Strength: Functionally appears WNL Movement Description Movement Impairment(s): Festination Mobility Sit To Stand: Contact Guard Assistance Stand To Sit: Contact Guard Assistance Gait Gait: Contact Guard Assistance Gait Device: U-Step Walker Gait Deviations: General Deviations General Deviations/Observations: Cesar decreased, Step length decreased, Improper distancing fromassistive device Gait Observation: cues to stop when device gets to far Functional Performance Test Results 30 Second Chair Stand Test: 8 reps (braces legs against table) Education: Education Learning Preferences: Explanation Barriers: Cognitive Limitations Learning/educational needs: Plan of Care, Safety, Lifestyle changes, Health promotion, Gait Training Education Provided: Yes, see treatment interventions for education provided Education Provided To: Patient Education Mode/Type: Explanation/Discussion Response to Education/Teach Back: States/Identifies TREATMENT: PT Treatment Interventions: Therapeutic Exercise, Neuromuscular Re-Education, Gait Training Evaluation Neuromuscular Re-Education: 1: Outcomes 2: Education: POC; goals; safety; pausing; focus of sessions Skilled Intervention: Proper implementation of objective outcomes with explanation of findings/deficits. Proper patient guarding to prevent falls/increase patient safety. Education as above Gait Trainin: Ustep, CGA, cues and pausing with outside MARY of walker; use of metronome to assist with pacing Skilled Intervention: Patient was provided contact guard assistance during pre- gait/gait training to prevent falls and insure safety. Facilitated proper gait cycle with the use of verbal cues for correction of gait deviations identified in the objective section above. Skilled judgment used to assess proper use of assistive device. Billing * Evaluation Moderate Complexity: 1 Unit Neuromuscular Re-Education Treatment Minutes: 10 Gait Training Treatment Minutes: 5 Skilled Treatment Time Minutes (timed and untimed codes): 44 Total Session Time (minutes): 44 Session Start Time : 1047 Session Stop Time : 1131 Jesenia James PT, DPT documented in this encounterUniversity Hospitals [facility]03-21-2024 Hospital Discharge instructions Additional Instructions You can ice your wrist for 10 to 15 minutes at a time few times a day for the next few days and take Tylenol for your pain as needed. Please follow-up with your PCP if no improvement of your symptoms.[facility] Work Phone: [phone] History of Present illness Narrative* Juliet Chanel MD - 05/15/2023 2:40 PM EDT [facility] - NEW PATIENT EVALUATION No referring provider defined for this encounter. MD Jose Miguel Oakes [address] [facility] [address] I had the pleasure of evaluating Ms. Padron to our clinic today. As you know she is a 77 year oldright-handed female who is seen for evaluation of PSP since 2019. She is seen with her . Subjective HISTORY OF PRESENT ILLNESS: Initial HPI Previously followed in [place]. Transitioning care closer to home. Symptoms started late 2019. Had hip replacement July 2019. She was falling then. They made her walk on it for 9 months before they would admit something was wrong and it was revised. Balance is 'gone.' Falls nearly daily. Sometimes freezing. Shuffling. Movements are quick and jerky. Walks with walker 'like a speed demon' and bears right. Has done PT. Currently at [facility]. Pretty constant therapy. 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 Daycare 2 days per week paid for by a evelia. Exercises there. Falls there too. Has diplopia. Prisms glasses are working. Just saw eye doctor yesterday and he was surprised she's doing so well. Just finished speech therapy at . Home care is coming soon but they don't know what will be provided. Some type of therapist. Doesn't want to stop going to . Two years ago fell, knocked herself out and had ICH. In rehab was switched to brand Sinemet. Workedfor a year at the time but not lately. Overall doesn't feel current Sinemet is helpful. Used to take higher dose. Movement Disorders Medications Schedule - as of the start of the visit: Medications Sinemet 25/100 1 1 1 Prior Anti-Parkinson Therapies Carbidopa/Levodopa Questionnaires: In addition, the following areas that may be affected by abnormal involuntary movements were evaluated: Daily activities Difficulties with eating: Yes (slight) Difficulties in dressin (none) some help/supervision Difficulties with hygiene activities: Yes (slight) some help/supervision. new shower is WC acceaaible but she won't use it Difficulties with handwriting: Yes (mild) Difficulties with doing hobbies and other activities: Yes (moderate) Difficulties turning in bed: Yes (slight) Difficulties getting out of bed, car or chair: Yes (slight) Tremors/Gait/Balance Shaking or tremors: 0 (none) Walking and balance problems: Yes (mild) Number of falls in the Last Month: 25 Gait freezing: Yes (slight) Autonomic/Pain Lightheadeness on standing: Yes (slight) Urinary problems: Yes (slight) Constipation problems: 0 (none) Pain and other sensations: Yes (slight) Speech/Swallowing Speech problems: Yes (slight) Drooling: Yes (slight) Chewing and swallowing problems: 0 (none) Sleep/Fatigue Sleep problems: 0 (none) compliant with CPAP Daytime sleepiness: Yes (slight) Fatigue: 0 (none) Mood/Behavior Depression: PHQ-9 Score: 1 usually representing no significant (0-4) depression. Anxiety: CARMEN-7 Total Score: 0 usually representing no significant (0-4) anxiety. Finally, the following table shows the patient's overall global physical and mental health using the PROMIS scale: PROMIS-10 Flowsheet Row Office Visit from 05/15/2023 in Neurology Global Physical Health T Score 44.9 Global Mental Health T Score 41.1 0-10 Standard Pain Scale 3 *PROMIS-10 scoring scale: mean = 50, over 50 is above average, under 50 is below average In addition, the following non-motor symptoms and palliative concerns were evaluated: Sleep/Fatigue: REM sleep behavior disorder: No Restless Legs Syndrome: Leg swelling: Impaired sense of smell: No Cognition: Cognitive impairment: no ok MoCA Cognitive assessment: Hallucinations and delusions: Apathy: Impulse control disorder: Palliative Concerns: Caregiver burden: Spiritual concerns: Advanced directives on file: Palliative services: Therapy and Exercise: Last PT Date: Last OT Date: Last ST Date: Exercises Regularly: Review of Systems Review of Systems Constitutional Negative for Fevers, Night Sweats, Weight Gain, Weight Loss and Fatigue Eyes Negative for Change in vison not corrected by glasses and Vision loss or change Hent Positive for Recent change in speech or voice Negative for Hearing Loss, Difficulty Swallowing and Tinnitus Cardiovascular Positive for Chest Pain, Lightheadedness and Leg pain with walking Respiratory Negative for SOB at rest, SOB with exertion, Cough, Wheezing and Snoring GI Negative for Blood in Stool, Abdominal Pain, Diarrhea, Constipation, Nausea/Vomiting and Heartburn Negative for Urgency and Incontinence Endocrine Negative for Heat Intolerance and Excessive Thirst Musculoskeletal Negative for Back Pain, Joint Swelling, Stiff Joints and Muscle Pain Integumentary Negative for Rashes, Itching, Other Lesions and Hair Changes Heme/Lymph Positive for Easy Bruising Negative for Prolonged Bleeding and Swelling of Arm or Leg Allergy/Immunologic Positive for Nasal Congestion Negative for Swollen Nodes Neurologic Positive for Memory Problems and Weakness Negative for Headache, Numbness/Tingling, Double Vision, Trouble Swallowing and Slurred Speech Psychiatric Negative for Stress or Conflicts, Depression, Anxiety, Irritability, Hallucinations and Delusions Patient's Review of Systems has been reviewed with the patient and updated as appropriate. ALLERGIES No Known Allergies Current Outpatient Medications Medication Sig acetaminophen 650 mg CR tablet 1,300 mg. carbidopa-levodopa (SINEMET) 25-100 mg per tablet take 2 & 1/2 tablets by mouth three times a day Cholecalciferol, Vitamin D3, 50 mcg (2,000 unit) cap Take by mouth as directed. ibuprofen (MOTRIN) 200 mg tablet Take 200 mg by mouth every 6 hours as needed. rosuvastatin (CRESTOR) 10 mg tablet Take 1 tablet by mouth once daily. No current facility-administered medications for this visit. Past Medical and Surgical History: has a past medical history of HLD (hyperlipidemia), SDH (subdural hematoma) (HCC), and Uterine cancer (HCC). has a past surgical history that includes hysterectomy hx; hip surgery hx; and shoulder surgery hx. Social History Tobacco Use Smoking status: Former Types: Cigarettes Smokeless tobacco: Never Family History: family history is not on file. Objective Vital Signs: Ht 157.5 cm (5' 2) Wt 63.4 kg (139 lb 12.4 oz) SpO2 97% BMI 25.56 kg/m Orthostatic Vitals: Sitting: BP 127/75 Pulse 83 Standing: BP 122/76 Pulse 93 Weight: 63.4 kg (139 lb 12.4 oz) Height: 157.5 cm (5' 2) No LMP recorded. Patient is postmenopausal. Body mass index is 25.56 kg/m . General Physical Examination: General: Awake, alert, interactive, no acute distress, good nutritional status, normal development,well-kept General Neurological Examination: Neurological Exam Mental Status Awake and alert. Cranial Nerves CN III, IV, : Abnormal extraocular movements: Mild limitation up and down gaze. Hypometric saccades. choppy. CN V: Facial sensation is normal. CN VII: Full and symmetric facial movement. CN VIII: Hearing is normal. CN XI: Shoulder shrug strength is normal. CN XII: Tongue midline without atrophy or fasciculations. Motor Strength is 5/5 throughout all four extremities. Sensory Light touch is normal in upper and lower extremities. Reflexes Right Left Brachioradialis 2+ 1+ Biceps 2+ 1+ Patellar 2+ 2+ Achilles 2+ 2+ Gait Stable with walker. Very unsteady getting onto scale today with MA, had to be caught to prevent fall, went backwards. Movement Disorders Scales Performed: MDS-UPDRS Motor subscale condition of exam Medication Off/On/Naiive ON Time of UPDRS Time of Last Medication Last Medication Taken DBS Right DBS Left MDS-UPDRS Motor subscale scores Speech 2-Mild. Loss of modulation, diction, or volume, with a few words unclear, but the overall sentences easy to follow. Facial Expression 2-Mild. In addition to decreased eye-blink frequency, Masked facies present in the lower face as well, namely fewer movements around the mouth, such as less spontaneous smiling, butlips not parted. Rigidity Neck 0-Normal. No rigidity. Rigidity Right Upper Extremity 1-Slight. Rigidity only detected with activation maneuver. Rigidity Left Upper Extremity 0-Normal. No rigidity. Rigidity Right Lower Extremity 0-Normal. No rigidity. Rigidity Left Lower Extremity 0-Normal. No rigidity. Finger Taps Right 1-Slight. a) the regular rhythm is broken with one or two interruptions or hesitations of the tapping movement, b) slight slowing, c) the amplitude decrements near the end of the 10taps. Finger Taps Left 1-Slight. a) the regular rhythm is broken with one or two interruptions or hesitations of the tapping movement, b) slight slowing, c) the amplitude decrements near the end of the 10 taps. Hand Movements Right 0-Normal. No problem. Hand Movements Left 0-Normal. No problem. Arm Movements Right 2-Mild. a) 3 to 5 interruptions during the movements, b) mild slowing, c) the amplitude decrements midway in the sequence. Arm Movements Left 2-Mild. a) 3 to 5 interruptions during the movements, b) mild slowing, c) the amplitude decrements midway in the sequence. Toe Taps Right 1-Slight. a) the regular rhythm is broken with one or two interruptions or hesitations of the tapping movement, b) slight slowing, c) the amplitude decrements near the end of the ten taps. Toe Taps Left 1-Slight. a) the regular rhythm is broken with one or two interruptions or hesitations of the tapping movement, b) slight slowing, c) the amplitude decrements near the end of the ten taps. Leg Agility Right 0-Normal. No problems. Leg Agility Left 0-Normal. No problems. Arise From Chair 0-Normal. No problems. Able to arise quickly without hesitation. Gait 3-Moderate. Requires an assistance device for safe walking (walking stick, walker) but not a person. Gait Freezing 0-Normal. No freezing. Posture Stability (deferred) Posture 1-Slight. Not quite erect, but posture could be normal for older person. Body Bradykinesia 2-Mild. Mild global slowness and poverty of spontaneous movements. Postural Tremor Hand Right 0-Normal. No tremor. Postural Tremor Hand Left 0-Normal. No tremor. Kinetic Tremor Right 0-Normal. No tremor. Kinetic Tremor Left 0-Normal. No tremor. Rest Tremor Amplitude Right Upper Extremity 0-Normal. No tremor. Rest Tremor Amplitude Left Upper Extremity 0-Normal. No tremor. Rest Tremor Amplitude Right Lower Extremity 0-Normal. No tremor. Rest Tremor Amplitude Left Lower Extremity 0-Normal. No tremor. Rest Tremor Amplitude Lip/Jaw 0-Normal. No tremor. Rest Tremor Constancy 0-Normal. No tremor. MDS-UPDRS Motor subscale totals Left Total 4 Right Total 5 Midline Total Tremor Total / 10 0 PIGD Total / 3 Overall Total % Change Compared to Last Filed Total Pertinent Studies Brain MRI 08/12/22 There is moderate cerebral atrophy with widening of the extra-axial spaces and ventricular dilatation. There is a limited number of small white matter hyperintensities, distributed throughout the deep white matter tracts of the cerebral hemispheres, consistent with mild chronic white matter ischemic changes. There is no evidence for recent intracranial ischemia or other cause of cytotoxic edema on diffusion-weighted imaging. Normal T2 images of the brain without demonstrated susceptibility artifact. There is no demonstrated hemosiderin staining. Midbrain iron stores are preserved. Normal bilateral basal ganglia. Normal thalami. There is no extra-axial fluid accumulation. Normal flow voids within the major intracranial circulation suggesting patency by spin-echo criteria. Normal sella turcica, pituitary gland, infundibular stalk, optic chiasm and hypothalamus. Normal tectal plate and pineal gland. Normal midbrain, felix and medulla. Normal cerebellum. Normal basal cisterns. Normal bilateral temporal bones. Normal bilateral internal auditory canals. No demonstrated orbital abnormality, within the constraints of the routine brain study. Normal visualized paranasal sinuses. Normal calvarium and skull base. Normal visualized soft tissue structures.Normal visualized upper cervical spine. Impression: Involutional changes of the brain, as described above. Assessment and Plan: Assessment Ms. Padron is a right-handed 77 year old year old female with likely PSP. Symptoms started with falls around 2019. History and exam are consistent with PSP. No consistent response to Sinemet except for briefly after change from generic to brand. No increase in symptoms with dose reduction. Try tapering off. Can restart if increase in symptoms noted. PSP typically with no levodopa response but if even slight improvement noted is worth taking. Continue with PT locally and exercise. Will have her see PT here when she returns for follow-up. May be good candidate to coordinate PT visits here with neuro follow-up. The following are the current problems noted and addressed during this visit: Psp (progressive supranuclear palsy) (hcc) (primary encounter diagnosis) Plan 05/15/2023 Visit: When you are almost out of Sinemet, try tapering off. Reduce to 1/2 tab 3 times a day for 1 week and then discontinue it. If you get worse we can restart it, consider trying the generic at that point- Continue with therapy and exercise - See PT here when back for follow-up in 3 months Updated Parkinson's Medication Schedule: Medications Sinemet 25/100 1 1 1 Level of service : 08115 (60-74) min). Time spent 74 min on the day of service, which included preparing to see the patient, [id number] patient care, completing clinical documentation, obtaining and/or reviewing separately obtained history, performing a medically appropriate examination, counseling and educating the patient/family/caregiver, and care coordination (not separately reported). Thank you for allowing me to be part of the clinical care of this patient! I look forward to continued participation in the patient s care with you. Please do not hesitate to call with any questions. Sincerely, Juliet Chanel MD documented in this encounterUniversity [facility]als [facility]03-13-2024 Instructions* Patient Instructions* Juliet Chanel MD - 05/15/2023 8:54 AM EDT It was a pleasure to see you today. We addressed the following diagnoses: Psp (progressive supranuclear palsy) (hcc) (primary encounter diagnosis) My recommendations are as follows: When you are almost out of Sinemet, try tapering off. Reduce to 1/2 tab 3 times a day for 1 week and then discontinue it. If you get worse we can restart it, consider trying the generic at that point- Continue with therapy and exercise - Movement Disorders Medication Schedule: Medications Sinemet 25/100 1 1 1 No follow-ups on file. If there are any concerns before your next visit, please call or you can send a message through [employer]. You can also now schedule and select appointments through [employer]. Juliet Chanel MD documented in this encounterUniversity Hospitals [facility]01-10-2024 Telephone encounter Note * Telephone Encounter - Erin Hedirck MA - 03/13/2023 10:07 AM EST Pt returned call advised her of normal CA 125 [id number] Miscellaneous Notes* Telephone Encounter - Erin Hedrick MA - 03/13/2023 10:07 AM EST Pt returned call advised her of normal CA 125 * Telephone Encounter - Yelena Finney - 03/12/2023 10:31 AM EST LVM with normal CA125 encouraged pt to call the office with any concerns or questions. documented in this [facility]01-09-2024 Telephone encounter Note* Telephone Encounter - Yelena Finney - 03/12/2023 10:31 AM EST LVM with normal CA125 encouraged pt to call the office with any concerns or questions. [id number] History of Present illness Narrative* MUSHTAQ Barber CNP - 02/20/2023 9:00 AM EST [email or web address] CC: metastatic (sites - right upper quadrant) endometrial cancer HISTORY OF THE PRESENT ILLNESS: Ramos Padron is a 77 y.o. with history of [...] was strongly estrogen receptor positive but weekly pr ogesterone receptor positive. Initial tumor marker at that time showed a CA-125 of 36. She was treated with 6 courses of carboplatinum and Taxol which finished in July 2015. The patient is now 6 yearsstatus post completion of chemotherapy. Followed by computed [...] August 2020 that showed no evidence of recurrentdisease CA 125 was 13.5 Interval History Today the patient has no new abdominal or gynecologic complaints. Is doing well. She does not have:Abdominal pain, abdominal distention, pelvic pain, bloating, constipation, [...] May. drove her to appt today. Going [place] house for [employer] dinner, about 5 family members will be there, will enjoy the hamand other foods. Past Medical History: Diagnosis Date [...] laparoscopic hyst with BSO Retroperitoneal node dissection. [place] JOINT REPLACEMENT Left 07/22/2019 JOINT REPLACEMENT KIDNEY [...] recognition. I apologize for minor errors in senior test analyst which may be present. documented in this [facility]10-12-2023 History of Present illness Narrative* MARY Farmer - 12/13/2022 8:00 AM EDT Movement Disorders Clinic Follow up visit Ramos Padron is a 77 y.o. female with PSP who was last seen 11/13/[address] Gonzalez. HISTORY OF PRESENT ILLNESS: Interval History: At last visit, sinemet reduced to 25/100mg 1 tablet PO TID due to lack of improvement. Met with Jenise Bean, social science instructor. She did fall a few times once she decreased her sinemet but then it has evened out. Doesn't want toreduce her sinemet further at this time but [...] Tab CR 2 tablets. Cholecalciferol 50 MCG (1999) capsule Take by mouth. Coenzyme Q10 100 [...] temperature source Infrared, height 1.562 m (5' 1.5), weight 64 kg (141 lb). Standardized Scales: [...] ASSESSMENT/PLAN 1. PSP (progressive supranuclear palsy) Ramos Padron is a 77 y.o. 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 Overall, the patient has moderate disease, but is well cared for. Objectively, the patient's UPDRS is stable at 29. At this time, will continue with sinemet 25/100mg1 tablet PO TID- may consider reducing further as unclear benefit. They would like to continue it at this time. Follow-up with program support specialist regarding double vision to see if prisms are appropriate. Encouraged appropriate hydration. PT recommended U-step walker with laser. Referral to neuropsychology for further cognitive testing today. Plan -Consider prisms for your glasses to help with double vision. -Continue sinemet 25/100mg 1 tablet by mouth three times per day- no changes. May consider reducingif unclear benefit. -Hydrate well. -PT recommended U-step [...] Disorders Center Outpatient Neurology documented in this [facility]Mer[facility]10-12-[facility]23 History of Present illness Narrative* Sugar Najera, PhD - 12/13/2022 8:00 AM EDT You are about to read part of the chart with sensitive personal information. This part of the chart should not be discussed without provider and patient approval. OUTPATIENT BEHAVIORAL HEALTH INTAKE ASSESSMENT DATE: 12/13/2022 Start Time: 8:02 am Stop Time: 8:39 am Total Time: 37 minutes of assessment time Informant(s): spouse and patient Referral Source: outpatient provider (Terrance Gonzalez MD, MPH) CHIEF COMPLAINT: Chief Complaint Patient presents with New Patient PD Multidisciplinary Clinic NOTE: Today's intake was conducted as part of comprehensive care within a multidisciplinary clinic,so the evaluation focused narrowly on the assessment of cognitive and psychiatric symptoms. Physical concerns were assessed by other clinic providers and are documented within their notes. HISTORY OF PRESENT ILLNESS: Ramos Padron is a 77 y.o., , female who [...] two years ago the patient fell at [facility] and sustained a small hemorrhage. The patient denied cognitive sequale and returned to baseline shortly following this injury. Regarding mood, the patient shared trouble adjusting to worsening physical abilities but denied current symptoms of anxiety or depression. The patient reported a reduction in hobbies/activities but shared this is a physical limitation rather than anhedonia. The patient's sleep is not restful with tr ouble initiating and maintaining sleep. Additionally, she shared [...] psychiatric diagnoses: none reported Psychiatrist (current): none daycare manager (current): none Therapist/Counselor (current): none TMS/ECT: [...] Osteopenia, and Vitamin D deficiency. She has nopast surgical history on file. She has No [...] above questions, refer pt to PCP for follow- up. If pt is in needof PCP, place referral to establish care. FALL [...] & maintaining sleep), no REM, not restful, reducedenergy quick especially on days after therapy or [...] on file. Childhood: Born and raised in [place] Living situation: currently lives with spouse, no kids Relationships/support: Good social support Education: high school diploma Occupation: insurance Trauma/abuse/DV history: no Legal issues/history: no Strengths: perserverance and personal intelligence Uatsdin considerations: none reported Cultural/ethnic considerations: none reported Language spoken at home: Indian LEARNING CONSIDERATIONS: Barriers to learning: (e.g., sensory [...] [x] yes [] no CLINICAL IMPRESSION: Ramos Padron is a 77 y.o., , female who [...] Parkinson's disease. I provided psychoeducation on mood andcognitive changes that can occur in individuals with Parkinson's disease. I described the possible benefits of a neuropsychological assessment and provided information on the referral process. While,the patient nor her denied significant cognitive difficulties [...] to ED) and safety plan as needed. Sugar Najera, PhD Clinical Neuropsychologist [place] [employer] License #[id number] documented in this encounterMer[facility]10-12-2023 Instructions* Patient Instructions* Maggi Gonzalez APRN-TRAVEL ACCOMMODATION INSPECTOR - 12/13/2022 8:00 AM EDT Consider prisms for your glasses to help with double vision. Continue sinemet 25/100mg 1 tablet by mouth three times per day- no changes. May consider reducing if unclear benefit. Hydrate well. Will see what PT says about a new walker. documented in this [facility]-19-[facility]23 Discharge summary Author Myla Benavides [facility] March 22, 2022 10:20am Note Date/Time March 22, 2022 1 0:20am [facility] [address] [place] [address] / REHABILITATION SERVICES DISCHARGE SUMMARY MR#: [id number] Acct: [id number] Name: RAMOS PADRON Rep #: [id number] : 1945 76 From: Myla Benavides PT, Cert. T Referring Dr.: Dr. Mariano David DO Status: REG RCR Insurance: MEDICARE PART A B [facility] RAMOS PADRON was seen in my office for initial evaluation on . The following Plan of Care was established for this patient: This patient was last seen in our office 03/22/22. Pertinent comments regardingtheir Physical therapy will appear below: PATIENT ARRIVED FOR PT EVAL WITH ORDER FOR AQUATIC THERAPY FOR HER R HIP. SHE STATES SHE DOES NOT WANT TO TRY AQUATIC THERAPY AT THIS TIME. SHE REPORTS SHE HAS A BACK INJECTION PENDING WITH DR. HENDRICKSON SOON AND IF HER BACK STARTS TO FEELBETTER SHE MIGHT TRY THE AQUATIC THERAPY THEN. PATIENT TO CONTACT US IF SHE WANTS TO TRY AQUATIC THERAPY. At this point I will be discontinuing this patient from physical therapy. I would be happy to see this patient again in the future if found appropriate by the physician. Thank you! Myla Benavides PT, Cert MDT <Electronically signed by Myla Benavides PT CertHilaria HARRINGTONT> 03/22/22 1020 CC: Dr. Mariano David DO; Dr. Micheal Betancourt MD ~ SILVIANO Signed [facility] Work Phone: 1(703) 151-110909-21-2022 Discharge summary Date of Service 11/21/2021 - 11/22/2021 Discharge Diagnosis 1. Subdural hematoma (S06.5X9A - ICD-10-CM) Future Orders: CT Head or Brain w/o Contrast; *Est. 12/07/21, Routine, Right SDH, [id number] [id number], No, [facility], NEUROS by JULIANA HARRINGTON, [facility] K 2. Fall (W19.XXXA - ICD-10-CM) Traumatic subdural [...] recently diagnosed Parkinson's who was shopping at [employer] today when she lost her balance and [...] was taken by EMS to outside hospital, [facility] wherea head CT was obtained, showing a small right acute temporal subdural hematoma with maximum thickness of 7 mm and no associated midline shift. Cervical CT unremarkable. Bilateral knee x-rays were also obtained and showed no acute findings. Patient was then transferred to [facility] for neurosurgical review and care. She had a small laceration over the right frontal temporal area that was repaired with suture closure. Dr. Andrews was notified of subdural hematoma findings, and [...] had no neurological deficits. Denied headache. Dr. Andrews stated no plans for surgical intervention at [...] Evaluated by PT/OT who recommended inpatient therapy. SPRAY TECHNICIAN assisted with discharge planning. Arrangements made for patient to go to [facility] at [place]. COVID swab obtained, negative. Patient remained neurologically [...] Result Date: November 22, 2021 Verified By: PEDRO SIEGEL MD CLINICAL STATEMENT: IMPRESSION: Right acute subdural hematoma [...] abrasions to bilateral knees. Laceration at right sabianist, closed with sutures. No bleeding or drainage. Site is without redness or swelling. Pending Labs and Studies N/A Code Status No qualifying data available. Admission Date 11/21/2021 Discharge Date 11/22/[address] at [facility] on 12/07/2021 at 9:15 AM. Please arrive to radiology department, ground-floor at the hospital by 9 AM for this test. After head CT is completed, then go to Dr. Andrews's office for follow-up appointment. You are scheduled to be seen by Dr. Andrews's nurse practitioner. Keep face laceration clean and [...] worsening symptoms, or subsequent falls. Call Dr. Andrews's office with any questions or concerns. Medications [...] EDT Why: Appointment is scheduled with Dr Andrews's nurse practitioner for re- evaluation, and review of head CT results. Where: [address] [address] [phone] Follow Up with [facility], Skilled, Nurse to Nurse [phone]. When Within 1-2 days Follow Up with MICHEAL BETANCOURT When Within 1-2 days Where: [address] [place] [address]- [phone] Business (1) Follow Up Appointments Transfer of [...] No lifting greater than 10 lbs., 11/22/21 10:30:00EDT Condition on Discharge Stable Readmission Risk/Palliative Score No qualifying data available. Discharge Disposition [facility] Information Provided To Patient/family Digitally Signed by KIAN HEMPHILL on 11/22/2021 02:55 PM Digitally Signed by JHON ANDREWS MD on 11/22/2021 03:53 PM [facility] [id number] History and physical note Date of Service 11/21/2021 Chief Complaint Acute SDH s/p fall. History of Present Illness 76-year-old female with medical history significant for Parkinson's, and previous left hip surgeries who was shopping at [employer] today when she lost her balance and [...] was taken by EMS to outside hospital, [facility] where a head CT was obtained, showing a small right acute temporal subdural hematoma with maximum thickness of 7 mm and no associated midline shift. Cervical CT unremarkable. Bilateral knee x-rays were also obtained and showed no acute findings. Patient was then transferred to [facility] for neurosurgical review and care. She had a small laceration over the right frontal temporal area that was repaired with suture closure. Dr. Andrews was notified of subdural hematoma findings, and [...] her age. She is seen laying supine inbed. at bedside. Patient is cooperative with exam. [...] Lungs are clear bilaterally. No evidence of shortnessof breath or difficulty breathing. She speaks in full sentences. Abdomen: Abdomen is soft, nontender and nondistended with active bowel sounds 4 quadrants. Peripheral vascular: Extremities are warm and without edema. Radial and pedal pulses are 2+ and symmetric. Neurological: Patient is awake, alert, and oriented x 4. Her speech is clear/fluent. No dysarthria.She makes good eye contact, engages well with [...] who lost her balance while shopping at [employer], and fell to the ground striking her head. Denied LOC, or syncopal event. Taken to [facility] via EMS and head CT showed a small acute right temporal subdural hematoma, measuring 7 mm in maximum thickness. No associated midline shift. Other work-up including a cervical CT and bilateral knee x-rays were negative for acute injuries. Patient was transferred to [facility] emergency department. Small laceration over right frontal temporal area closed with sutures. Patient accepted by Dr. Andrews for admission to stepdown unit. Discussed case with him. Dr. Andrews has no plans for surgical intervention at [...] with her . Family History Mother- CVA, [place] Father- Cancer (unknown type) Sister- Pulmonary disease Brother- CVA Immunizations No qualifying data available. Code Status No qualifying data available. Digitally Signed by KIAN HEMPHILL on 11/21/2021 04:18 PM [facility] [id number] Note Discharge Instructions Thank you for allowing [facility] to assist you with your healthcare needs. The following is importantdischarge information regarding your hospital visit. Your Care Team MICHEAL BETANCOURT MD Your Diagnosis Subdural hematoma Fall What to do next Instructions From Your Doctor Head CT at [facility] on 12/07/2021 at 9:15 AM. Please arrive to radiology department, ground-floor at the hospital by 9 AM for this test. After head CT is completed, then go to Dr. Andrews's office for follow-up appointment. You are scheduled to be seen by Dr. Andrews's nurse practitioner. Keep face laceration clean and [...] OV 12/07/2021 10:00 AM EDT Neurosurgery [address] [address] Follow Up Appointments Follow Up with JULIANA HARRINGTON, JHON Neville, Neurosurgery When 12/07/2021 09:15 AM EDT Why: Appointment is scheduled with Dr Andrews's nurse practitioner for re- evaluation, and review of head CT results. Where: [address] [place] [address] [phone] Follow Up with [facility], Skilled, Nurse to Nurse [phone]. When Within 1-2 days Follow Up with MICHEAL BETANCOURT When Within 1-2 days Where: [address] [facility] [place] [address]- [phone] Business (1) The Following Activity and Diet Have Been Ordered for You Transfer of Care Activity - Ordered -- Activity As Tolerated, Fall Risk Precautions. No lifting greater than 10 lbs., 11/22/21 10:30:00EDT Transfer of Care Diet - Ordered -- Type of Diet: Regular Diet, 11/22/21 10:30:00 EDT The Following Equipment Has Been Ordered for You Discharge Home Equipment Transfer of Care Wound Care - Ordered -- Head, right, Keep laceration site clean and dry at all times. Sutures will need removed in 10-14days., 11/22/21 10:30:00 EDT The Following Treatments Have [...] By - Ordered -- 11/22/21 10:30:00 EDT, JHON ANDREWS MD Transfer of Care Prognosis - Ordered -- [...] and or supplements as they may interact withyour home medications. What How Much When Instructions [...] weeks or months. In some cases, this typedoes not cause symptoms. What are the causes? [...] over minutes or hours. Symptoms of chronic subduralhematoma may develop over weeks or months. How [...] care provider about what to expect. Take zspz-yup-nijeniu and prescription medicines only as told by your health care provider. Do not take blood thinners or NSAIDs unless your health care provider approves. These include aspirin, ibuprofen, naproxen, and warfarin. Keep your home environment safe to reduce the risk of falling. Keep all follow-up visits as told by your health care provider. This is important. Where to find more information National [place] of Neurological Disorders and Stroke: www.ninds.nih.gov [place] Academy of Neurology (AAN): www.aan.com Brain Injury Association of [place]: www.biausa.org Get help right away if you: [...] 01/05/2005 Document Revised: 01/19/2019 Document Reviewed: 01/19/2019 Cellworks Patient Education 2020 [employer] Inc. Additional Information VACCINATE! IT SAVES LIVES! Members of the community who have not yet received the COVID-19 vaccine and would like to receive it can visit one of [facility] vaccine clinics. There are many vaccine clinic locations within the [facility]. For locations and available times, please visit https://[email or web address].[place].gov/. It is important to note that some COVID mobile vaccine clinics are held outdoors and may be canceled in rainy or stormy conditions. To learn more about pediatric vaccinations (ages 5-11), we invite you to visit the [facility] webpage. https://www.[facility].org/pages/6705-Tbrne-Mjaznapoqdn-Flurpmybca-Ykaff-Gjs stions.htmlTo learn more about the COVID-19 vaccine, we invite you to visit the [employer] website for a list of frequently asked questions. https://OP3Nvoice.ShareSDK/assets/Lzawdpir-mqw-Gvkmlrly/xtwzq-Twcaddn-Mqdzwcnubw _Asked-Questions.pdf [facility] Patient Portal Access Instructions: Stay connected with your healthcare team and access your personal medical information anytime with the [facility] Patient Portal.If you would like a full copy of your medical records, please contact the [facility] Medical Records Department, Saturday through Saturday between 8a.m. and 4:30p.m. Please follow the directions below to access the portal: 1.Access the email account you provided upon registration to the [facility].2.Look for an invitation email from [facility].3.Open the email and access the invitation link: Accept Invitation to [facility] pinion-pins4.Fill in the required rain to create your account. Sign into www.[employer] Properties with your username and password that you [...] you will allow to register on the [facility] Patient Portal for access to your information. You can also access the [facility] Patient Portal on the Particle Code. Simply click on Health Records under Bridgefy and then click on the [employer] logo. HOW TO SAFELY DISPOSE OF PRESCRIPTION MEDICATIONS Please use one of the following methods to safely dispose of your unused medications. 1.Use a drug disposal kit: the drug disposal pouch allows you to safely discard your old and unuseddrugs. Ask your nurse to give you one when you are discharged.2.Visit a local take-back location: Many local pharmacies and police departments have programs that collect old and unwanted prescriptiondrugs. Call your local pharmacy or go to http://[facility].StopTheHacker/3B9Hv1r to find one close to you.3.Make use of household items: Use cat litter or old coffee grounds to dispose medications if other options arenot available. Mix your drugs with these household products, seal them in an airtight container andthrow it into the garbage. Call [facility]: [phone] to be sure your drugs can be [...] reviewed and explained to me and I,RAMOS PADRON understand my current condition and have read and understand these discharge instructions. I have received a written copy of the plan/instructions. If I have questions, I am aware that I should contact my doctor. Patient/Air Technician Signature: Date/Time: Relationship to Patient: Witness Name/Signature: Date/Time: [id number] Hospital Discharge instructions Patient Education 11/22/2021 11:16:52 Subdural Hematoma [...] weeks or months. In some cases, this typedoes not cause symptoms. What are the causes? [...] over minutes or hours. Symptoms of chronic subduralhematoma may develop over weeks or months. How [...] participating in activities such as biking or contactsports. Avoid too much visual stimulation while recovering. [...] care provider about what to expect. Take dnrg-yij-vvloipf and prescription medicines only as told by your health care provider. Do not take blood thinners or NSAIDs unless your health care provider approves. These include aspirin, ibuprofen, naproxen, and warfarin. Keep your home environment safe to reduce the risk of falling. Keep all follow-up visits as told by your health care provider. This is important. Where to find more information National [place] of Neurological Disorders and Stroke: www.ninds.nih.gov [place] Academy of Neurology (AAN): www.aan.com Brain Injury Association of [place]: www.biausa.org Get help right away if you: [...] 01/05/2005 Document Revised: 01/19/2019 Document Reviewed: 01/19/2019 Cellworks Patient Education 2020 [employer]works Inc. Follow Up Care 11/21/2021 12:58:26 With:JULIANA HARRINGTON, JHON Neville, Neurosurgery Address: [facility] [address] [address] [phone] When:12/07/2021 09:15:00 Comments:Appointment is scheduled with Dr Andrews's nurse practitioner for re- evaluation, and review of head CTresults. With:[facility], Jesus, Nurse to Nurse [phone]. Address:Unknown When:1-2 days With:MICHEAL BETANCOURT Address: [address] [place] [address] [phone] Business (1) When:1-2 days [facility] 09-21-2022 Note Discharge Instructions Thank you for allowing [facility] to assist you with your healthcare needs. The following is importantdischarge information regarding your hospital visit. Your Care Team MICHEAL BETANCOURT MD Your Diagnosis Subdural hematoma Fall What to do next Instructions From Your Doctor Head CT at [facility] on 12/07/2021 at 9:15 AM. Please arrive to radiology department, ground-floor at the hospital by 9 AM for this test. After head CT is completed, then go to Dr. Andrews's office for follow-up appointment. You are scheduled to be seen by Dr. Andrews's nurse practitioner. Keep face laceration clean and [...] OV 12/07/2021 10:00 AM EDT Neurosurgery [address] [place] [address] Follow Up Appointments Follow Up with JULIANA HARRINGTON, [facility], Neurosurgery When 12/07/2021 09:15 AM EDT Why: Appointment is scheduled with Dr Andrews's nurse practitioner for re- evaluation, and review of head CT results. Where: [address] [place] [address] [phone] Follow Up with [facility], [facility], Nurse to Nurse [phone]. When Within 1-2 days Follow Up with MICHEAL BETANCOURT When Within 1-2 days Where: [address] [place] [phone] Business (1) The Following Activity and Diet Have Been Ordered for You Transfer of Care Activity - Ordered -- Activity As Tolerated, Fall Risk Precautions. No lifting greater than 10 lbs., 11/22/21 10:30:00EDT Transfer of Care Diet - Ordered -- Type of Diet: Regular Diet, 11/22/21 10:30:00 EDT The Following Equipment Has Been Ordered for You Discharge Home Equipment Transfer of Care Wound Care - Ordered -- Head, right, Keep laceration site clean and dry at all times. Sutures will need removed in 10-14days., 11/22/21 10:30:00 EDT The Following Treatments Have [...] and or supplements as they may interact withyour home medications. What How Much When Instructions [...] weeks or months. In some cases, this typedoes not cause symptoms. What are the causes? [...] over minutes or hours. Symptoms of chronic subduralhematoma may develop over weeks or months. How [...] care provider about what to expect. Take tbtk-biz-cpugkac and prescription medicines only as told by your health care provider. Do not take blood thinners or NSAIDs unless your health care provider approves. These include aspirin, ibuprofen, naproxen, and warfarin. Keep your home environment safe to reduce the risk of falling. Keep all follow-up visits as told by your health care provider. This is important. Where to find more information National [place] of Neurological Disorders and Stroke: www.ninds.nih.gov [place] Academy of Neurology (AAN): www.aan.com Brain Injury Association of [place]: www.biausa.org Get help right away if you: [...] 01/05/2005 Document Revised: 01/19/2019 Document Reviewed: 01/19/2019 [employer] Patient Education 2020 Cellworks Inc. Additional Information VACCINATE! IT SAVES LIVES! Members of the community who have not yet received the COVID-19 vaccine and would like to receive it can visit one of [facility] vaccine clinics. There are many vaccine clinic locations within the [facility]. For locations and available times, please visit https://gettheshot.coronavirus.[place].gov/. It is important to note that some COVID mobile vaccine clinics are held outdoors and may be canceled in rainy or stormy conditions. To learn more about pediatric vaccinations (ages 5-11), we invite you to visit the [facility] webpage. https://www.RigUps.org/pages/6226-Isndi-Mizewlgzaoa-Yipnklnplx-Upzzq-Sjz stions.htmlTo learn more about the COVID-19 vaccine, we invite you to visit the [facility] website for a list of frequently asked questions. https://arianna.org/assets/Mbowwesm-qro-Czrcbrio/jmyir-Doyzxjr-Vsiwasahxg _Asked-Questions.pdf [facility] pinion-pins Patient Portal Access Instructions: Stay connected with your healthcare team and access your personal medical information anytime with the [facility] Patient Portal.If you would like a full copy of your medical records, please contact the [facility] Medical Records Department, Saturday through Saturday between 8a.m. and 4:30p.m. Please follow the directions below to access the portal: 1.Access the email account you provided upon registration to the hospital.2.Look for an invitation email from [facility].3.Open the email and access the invitation link: Accept Invitation to [facility]4.Fill in the required rain to create your account. Sign into www.[employer] Properties with your username and password that you [...] you will allow to register on the [facility] Patient Portal for access to your information. You can also access the [facility] Patient Portal on the TipCity neisha. Simply click on Health Records under Bridgefy and then click on the [employer] logo. HOW TO SAFELY DISPOSE OF PRESCRIPTION MEDICATIONS Please use one of the following methods to safely dispose of your unused medications. 1.Use a drug disposal kit: the drug disposal pouch allows you to safely discard your old and unuseddrugs. Ask your nurse to give you one when you are discharged.2.Visit a local take-back location: Many local pharmacies and police departments have programs that collect old and unwanted prescriptiondrugs. Call your local pharmacy or go to http://UrbnDesignz/1S5Ij6r to find one close to you.3.Make use of household items: Use cat litter or old coffee grounds to dispose medications if other options arenot available. Mix your drugs with these household products, seal them in an airtight container andthrow it into the garbage. Call [facility]: [phone] to be sure your drugs can be [...] reviewed and explained to me and I,RAMOS PADRON understand my current condition and have read and understand these discharge instructions. I have received a written copy of the plan/instructions. If I have questions, I am aware that I should contact my doctor. Patient/Air Technician Signature: Date/Time: Relationship to Patient: Witness Name/Signature: Date/Time: [facility] [id number] Note Discharge Instructions Thank you for allowing [facility] to assist you with your healthcare needs. The following is importantdischarge information regarding your hospital visit. Your Care Team MICHEAL BETANCOURT MD Your Diagnosis Subdural hematoma Fall What to do next Follow Up Appointments Follow Up with [facility], Skilled, Nurse to Nurse [phone]. When Within 1-2 days Follow Up with MICHEAL BETANCOURT When Within 1-2 days Where: [address] [place] [address]- [phone] Business (1) The Following Activity and Diet Have Been Ordered for You Transfer of Care Activity - Ordered -- Activity As Tolerated, Fall Risk Precautions. No lifting greater than 10 lbs., 11/22/21 10:30:00EDT Transfer of Care Diet - Ordered -- Type of Diet: Regular Diet, 11/22/21 10:30:00 EDT The Following Equipment Has Been Ordered for You Discharge Home Equipment Transfer of Care Wound Care - Ordered -- Head, right, Keep laceration site clean and dry at all times. Sutures will need removed in 10-14days., 11/22/21 10:30:00 EDT The Following Treatments Have [...] By - Ordered -- 11/22/21 10:30:00 EDT, JLUIANA HARRINGTON, JHON Neville Transfer of Care Prognosis [...] and or supplements as they may interact withyour home medications. What How Much When Instructions [...] to receive it can visit one of [facility] vaccine clinics. There are many vaccine clinic locations within the [facility]. For locations and available times, please visit https://gettheshot.coronavirus.[place].gov/. It is important to note that some COVID mobile vaccine clinics are held outdoors and may be canceled in rainy or stormy conditions. To learn more about pediatric vaccinations (ages 5-11), we invite you to visit the [facility] webpage. https://www.[facility].org/pages/0516-Skmbw-Irhmxdsprvz-Ilapzvyvgw-Pbdgx-Zkl stions.htmlTo learn more about the COVID-19 vaccine, we invite you to visit the [employer] website for a list of frequently asked questions. https://arianna.ShareSDK/assets/Depxkjle-rxd-Dczhhznl/gefky-Rrgoafu-Titqkkhbgu _Asked-Questions.pdf [facility] Patient Portal Access Instructions: Stay connected with your healthcare team and access your personal medical information anytime with the [facility] Patient Portal.If you would like a full copy of your medical records, please contact the [facility] Medical Records Department, Saturday through Saturday between 8a.m. and 4:30p.m. Please follow the directions below to access the portal: 1.Access the email account you provided upon registration to the [facility].2.Look for an invitation email from [facility].3.Open the email and access the invitation link: Accept Invitation to [facility]4.Fill in the required rain to create your account. Sign into www.[employer] Properties with your username and password that you [...] you will allow to register on the [facility] Patient Portal for access to your information. You can also access the [facility] Patient Portal on the Particle Code. Simply click on Health Records under Bridgefy and then click on the [employer] logo. HOW TO SAFELY DISPOSE OF PRESCRIPTION MEDICATIONS Please use one of the following methods to safely dispose of your unused medications. 1.Use a drug disposal kit: the drug disposal pouch allows you to safely discard your old and unuseddrugs. Ask your nurse to give you one when you are discharged.2.Visit a local take-back location: Many local pharmacies and police departments have programs that collect old and unwanted prescriptiondrugs. Call your local pharmacy or go to http://[facility].StopTheHacker/5F8Vu3q to find one close to you.3.Make use of household items: Use cat litter or old coffee grounds to dispose medications if other options arenot available. Mix your drugs with these household products, seal them in an airtight container andthrow it into the garbage. Call [facility]: [phone] to be sure your drugs can be [...] aware that I should contact my doctor. Patient/Air Technician Signature: Date/Time: Relationship to Patient: Witness Name/Signature: Date/Time: [facility] [id number] Note ORIGINAL EXAMINATION: CT OF THE HEAD [...] Right SDH Patient is a transfer from [facility], no complaints of pain FINDINGS: Hyperdense subdural [...] the resident's findings and interpretation. Interpreted by: Pedro Siegel MD Preliminary Report By: Molly Cortez Electronically signed By Pedro Siegel MD Dictated Date: 11/22/2021 5:11:12 AM Prelim Date: 11/22/2021 5:20:50 AM Sign Date: 11/22/2021 5:30:05 AM Ordering Provider: [facility]09-21-2022 Note ORIGINAL EXAMINATION: CT OF THE HEAD [...] Right SDH Patient is a transfer from [facility], no complaints of pain FINDINGS: Hyperdense subdural [...] the resident's findings and interpretation. Interpreted by: Pedro Siegel MD Preliminary Report By: Molly Diego Electronically signed By Pedro Siegel MD Dictated Date: 11/22/2021 5:11:12 AM Prelim Date: 11/22/2021 5:20:50 AM Sign Date: 11/22/2021 5:30:05 AM Ordering Provider: [facility]09-20-2022 Note ORIGINAL EXAMINATION: TWO XRAY VIEWS OF [...] Sign Date: 11/21/2021 9:18:02 PM Ordering Provider: [facility]09-20-2022 Note ORIGINAL EXAMINATION: TWO XRAY VIEWS OF [...] Sign Date: 11/21/2021 9:18:02 PM Ordering Provider: [facility]09-20-2022 History and physical note Date of Service 11/21/2021 Chief Complaint Acute SDH s/p fall. History of Present Illness 76-year-old female with medical history significant for Parkinson's, and previous left hip surgeries who was shopping at [employer] today when she lost her balance and [...] was taken by EMS to outside hospital, [facility] where a head CT was obtained, showing a small right acute temporal subdural hematoma with maximum thickness of 7 mm and no associated midline shift. Cervical CT unremarkable. Bilateral knee x-rays were also obtained and showed no acute findings. Patient was then transferred to [facility] for neurosurgical review and care. She had a small laceration over the right frontal temporal area that was repaired with suture closure. Dr. Andrews was notified of subdural hematoma findings, and [...] her age. She is seen laying supine inbed. at bedside. Patient is cooperative with exam. [...] Lungs are clear bilaterally. No evidence of shortnessof breath or difficulty breathing. She speaks in full sentences. Abdomen: Abdomen is soft, nontender and nondistended with active bowel sounds 4 quadrants. Peripheral vascular: Extremities are warm and without edema. Radial and pedal pulses are 2+ and symmetric. Neurological: Patient is awake, alert, and oriented x 4. Her speech is clear/fluent. No dysarthria.She makes good eye contact, engages well with [...] who lost her balance while shopping at [employer], and fell to the ground striking her head. Denied LOC, or syncopal event. Taken to [facility] via EMS and head CT showed a small acute right temporal subdural hematoma, measuring 7 mm in maximum thickness. No associated midline shift. Other work-up including a cervical CT and bilateral knee x-rays were negative for acute injuries. Patient was transferred to [facility] emergency department. Small laceration over right frontal temporal area closed with sutures. Patient accepted by Dr. Andrews for admission to stepdown unit. Discussed case with him. Dr. Andrews has no plans for surgical intervention at [...] with her . Family History Mother- CVA, [place] Father- Cancer (unknown type) Sister- Pulmonary disease Brother- CVA Immunizations No qualifying data available. Code Status No qualifying data available. Digitally Signed by KIAN HEMPHILL on 11/21/2021 04:18 PM [facility] [id number] Evaluation + Plan noteExtracted from: Title:History and Physical Author:KIAN HEMPHILL SIGN BUILDER SUPERVISOR-TRAVEL ACCOMMODATION INSPECTOR Date:11/21/21 Mild TBI acute small SDH s/p accidental fall 76-year-old female with history of Parkinson's, who lost her balance while shopping at [employer], and fell to the ground striking her head. Denied LOC, or syncopal event. Taken to [facility] via EMS and head CT showed a small acute right temporal subdural hematoma, measuring 7 mm in maximum thickness. No associated midline shift. Other work-up including a cervical CT and bilateral knee x-rays were negative for acute injuries. Patient was transferred to [facility] emergency department. Small laceration over right frontal temporal area closed with sutures. Patient accepted by Dr. Andrews for admission to stepdown unit. Discussed case with him. Dr. Andrews has no plans for surgical intervention at [...] any acute changes or concerns. Addendum by JHON ANDREWS MD on November 22, 2021 13:36:54 EDT This is a split shared note between myself and the nurse practitioner. No acute overnight events. This is a 76-year-old female with a history of Parkinson's disease and multiple hip surgeries, who was shopping when she lost her balance and struck her head on the ground. She was taken to [facility] where CT scan showed the presence of an acute right-sided small subdural hematoma. Repeat CT scan shows that the subdural hematoma is actually decreased in size. Patient is not on any blood thinners. She is admitted to 5 S. further evaluation. On examination she is [...] CT Head or Brain w/o Contrast 12/07/21 [facility] Discharge summary Author Dr. Segura [facility] May 21, 2022 12:20pm Note Date/Time May 21, 2022 10: 29am [facility] Medical Records Department [address] [place] [address] Emergency Department Summary 05/21/22 MR#: [id number] Acct: [id number] Name: RAMOS PADRON Rep #:[id number] : 1945 76 From: Home Segura MD PCP: Care Physician,No Primary Status :REG ER Location: ED HPI History of Present Illness Chief Complaint: Back Narrative Narrative: 76-year-old female past medical history of Parkinson disease, presents with injury to her back, low back that she sustained approximately 10 days ago. She states that she was vacationing in [place], and someone had called out to her. She turned around to see who it was, and she fell onto her low back onto concrete. She states that she has been nursing herself back to health, taking Tylenol, and putting Biofreeze on the area. She has pain in the middle of her low back and more towards the right. She states that her symptoms were beginning to improve, but on the car ride home, she started having increasing pain in a seated position. She denies other injury, but now states she is having pain in the middle of her low back. She presents for evaluation of this pain. She denies any fevers or chills. No nausea or vomiting. No radiation ofpain down her leg, no saddle anesthesia, no loss of bowel or bladder. [facility] Medical History (Updated 05/21/22 @ 12:18 by Home Segura MD) Abnormal bruising Acute bronchitis, unspecified Back pain Carpal tunnel syndrome Difficulty balancing Encounter for screening for malignant neoplasm of lung in former smoker who quitin past 15 years with 30 pack year history or greater Endometrial cancer Fatigue High cholesterol History of tobacco use Hypertension Migraines Parkinson disease Shoulder pain URI (upper respiratory infection) Uterine cancer Home Medications carbidopa 25 mg-levodopa 100 mg tablet 1 tab PO BID parkisons 11/22/21 [History Last Taken Unknown] acetaminophen 500 mg tablet 1,000 mg PO Q6H PRN PRN Pain Score 1-10 #0 tabs 11/29/21 [Rx Last Taken Unknown] carboxymethylcellulose sodium 1 % eye gel in a dropperette (TheraTears) 1 ea EACH EYE Q1H PRN DRY EYES #0 ea 11/29/21 [Rx Last Taken Unknown] cholecalciferol (vitamin D3) 50 mcg (2,000 unit) capsule (D3-2000) 50 mcg PO DAILY 03/16/22 [History Last Taken Unknown] coenzyme [id number] E 100 mg-100 unit capsule cap PO 03/16/22 [History Last Taken Unknown] Allergy/AdvReac Type Severity Reaction Status Date / Time No Known Allergies Allergy Verified 05/21/22 09:58 Family History Mother CVA (cerebral vascular accident) Hypertension Arthritis Heart disease Father Cancer Skin cancer Sister CVA (cerebral vascular accident) Hypertension Brother Hypertension CVA (cerebral vascular accident) Surgical History H/O: hysterectomy History of hip surgery History of left hip replacement History of left shoulder replacement Social History household members: spouse housing: house Smoking Status: Former smoker quit date: 01/02/15 pack-years: 40 Tobacco: How many years used: 40 Electronic Cigarette Use: not used second hand exposure: Yes quit status: has quit before counseling given: provider counseling alcohol intake: never what type of physical activity do you participate in: walking and other details: golf do you feel safe at home: Yes ROS ROS ED ROS Narrative Constitutional: No fever, no chills. HEENT: No sore throat. No neck pain. No loss of vision. No rhinorrhea. Cardiovascular: No chest pain. No palpitations. No pedal edema. Respiratory: No cough, no shortness of breath. Abdominal: No abdominal pain. No nausea. No vomiting. Genitourinary: No dysuria. No hematuria. Musculoskeletal: No myalgias. No arthralgias. Positive low back pain, midline to right-sided. Neurologic: No headaches. No dizziness. No lightheadedness. Skin: No rash. No change in color. Psychiatric: No depression. No anxiety. EXAM Physical Exam Narrative Exam Narrative: Afebrile. Vital signs noted. HEENT: Normocephalic. Atraumatic. PERRL, EOMI. Neck soft and supple. No pointtenderness or step off. Cardiovascular: Regular rate and rhythm. No murmurs, rubs, or gallops appreciated. Respiratory: No tachypnea. Lungs clear to auscultation bilaterally. Gastrointestinal: Abdomen soft, nontender, with normoactive bowel sounds. No rebound or guarding. Neurological: Awake. Alert. Nonfocal, nonlateralizing. Straight leg raising negative bilaterally. Full range of motion of hip and joints bilateral lower extremities. DTR, patellar, equal and symmetric. Skin: No rash. Normal color. No pallor. Musculoskeletal: No pedal edema. Full range of motion extremities. Mild tenderness palpation diffusely midline low back, no step-off. Const Vital Signs: 05/21/22 09:59 Temperature 97.1 F L Temperature Source Temporal Pulse Rate 86 Respiratory Rate 16 Blood Pressure 141/78 H Blood Pressure Mean 99 Pulse Ox 98 Oxygen Delivery Method Room Air MDM MDM MDM Narrative Medical decision making narrative: Patient has been taking Tylenol initially. She was given 1 oxycodone 5 mg tablet here for analgesia. I do feel that CT imaging of her lumbar spine would be more beneficial than x-rays/plain films given the nature of her trauma, and her osteopenia. I reviewed her CT imaging. I also reviewed the radiology report which shows no evidence of an acute fracture. There is multilevel degenerative changes. I do feel that she could be discharged safely home. She states that she will take Tylenol for analgesia and follow-up with her primary care provider. Return instructions to the emergency department were reviewed. She will continue to use her walker for ambulation. Disposition is discharged home in stable condition. Radiography Diagnostic Testing: Clinical Impression(s) from Imaging Studies Lumbar Spine CT 05/21/22 10:25 IMPRESSION: Multilevel degenerative changes, as described above. Minimal degree of the loss of height of the superior endplate of the L2 vertebrae with evidence of a Schmorl''s node. Electronically Signed: Max Olsen MD at 11:15 EDT , Discharge Plan Triage Chief Complaint: Back ED Provider: Home Segura Dx/Rx/DC Orders Clinical Impression: Fall, Low back pain, Lumbar contusion Instructions: ED Back Pain (Acute or Chronic), ED Back Contusion, ED MechanicalFall Prescriptions: No Action coenzyme [id number] E 100-100 mg-unit capsule PO cholecalciferol (vitamin D3) [D3-2000] 50 mcg (2,000 unit) capsule 50 mcg PO DAILY carbidopa-levodopa 25-100 mg tablet 1 tab PO BID acetaminophen 500 mg Tablet 1,000 mg PO Q6H PRN PRN (Reason: Pain Score 1-10) Qty: 0 0RF carboxymethylcellulose sodium [TheraTears] 1 % Dropperette,Gel 1 ea EACH EYE Q1H PRN (Reason: DRY EYES) Qty: 0 0RF Primary Care Provider: Care Physician,No Primary Referrals: Care Physician,No Primary [Primary Care Provider] - Activity Restrictions/Additional Instructions: Follow-up with your primary care physician as soon as possible. Continue your Tylenol as needed for pain. Disposition Disposition: Home, Self Care What to do if you have Problems For any increased pain, shortness of breath, bleeding, nausea or vomiting, chestpain, or any unexpected problems, contact your Primary Care Provider. Call [facility] ([phone]) or report to the closest Emergency Room. Call 911 if necessary. 05/21/22 1220 <Electronically signed by Home Segura MD> Cosigner Signature (if applicable): CC: No Primary Care Physician ~ Signed [facility] Work Phone: Discharge summary Author John Webb [facility] Note Date/Time December 17, 2024 1 2:30[facility] Medical Records Department [address] [place] [address] Emergency Department Summary 12/17/24 MR#: [id number] Acct: [id number] Name: RAMOS PADRON Rep #:[id number] From: John Hansen PCP: Dr. Dmitry Bukr MD Status:DEP ER Location: ED HPI HPI - Fall History of Present Illness Chief Complaint: Fall Occured/Mechanism Occurred: Today Mechanism/Context: Yes same level fall Pain/Injury Pain Location: head, face and neck Worsened by: Nothing Relieved by: Nothing Associated Symptoms Associated Symptoms: Negative for Parasthesias, Weakness or Loss of consciousness Narrative Narrative: Patient presents after a fall that occurred this morning. Patient got up to walk when she fell. Patient has a history of Parkinson's and falls frequently. reports that the staff at the [facility]term found her on the floor. Patient denies any loss of consciousness. states patient's immunizations are up-to-date. Patient does complain of headache and neck pain. Patient is not on any anticoagulants. Patient denies any weakness. Tetanus Immunization: <5 years PFSH [facility] Medical History De Quervain's tenosynovitis, right Osteoarthritis of carpometacarpal joint of right thumb Right hand pain Parkinson disease Acute bronchitis, unspecified URI (upper respiratory infection) Hypertension Carpal tunnel syndrome High cholesterol History of tobacco use Encounter for screening for malignant neoplasm of lung in former smoker who quitin past 15 years with 30 pack year history or greater Endometrial cancer Back pain Difficulty balancing Abnormal bruising Migraines Fatigue Shoulder pain Uterine cancer Home Medications ?Medication ?Instructions ?Recorded ?Last Taken ?Type carbidopa 25 mg-levodopa 100 mg 2 tab PO TID parkinson s 11/22/21 Unknown History tablet acetaminophen 500 mg tablet 1,000 mg (2 x 500 mg) PO Q 6H PRN 11/29/21 Unknown Rx PRN Pain Score 1-10 #0 tabs cholecalciferol (vitamin D3) 50 50 mcg PO DAILY Unknown History mcg (2,000 unit) capsule (D3-2000) atorvastatin 20 mg tablet 20 mg PO QHS HYPERLIPIDEMIA 01/27/24 Unknown History bisacodyl 10 mg rectal suppository 10 mg OK DAILY PRN constipation 12/17/24 Unknown History cephalexin 500 mg capsule 500 mg PO Q6 #40 CAPSULES Unknown Rx dextromethorphan-guaifenesin 10 10 ml PO Q4H PRN cough 12/17/24 Unknown History mg-100 mg/5 mL oral syrup (Chest Congestion Relief DM) loperamide 2 mg tablet (Diamode) 2 mg PO Q6H PRN loose stool 12/17/24 Unknown History magnesium hydroxide 400 mg/5 mL 30 ml PO DAILY PRN sto mach upset 12/17/24 Unknown History oral suspension (Milk of Magnesia) mineral oil 118 ml OK DAILY PRN constipa tion 12/17/24 Unknown History ondansetron HCl 4 mg tablet 4 mg PO Q8H PRN nausea and vomiting 12/17/24 Unknown History rivastigmine tartrate 3 mg capsule 3 mg PO BID CONFUSI ON 12/17/24 Unknown History sodium chloride 0.65 % nasal spray 2 spray intranasal PRN nasal 12/17/24 Unknown History aerosol (Deep Sea Nasal) congestion Allergy/AdvReac Type Severity Reaction Status Date / Time No Known Allergies Allergy Verified 03/09/24 09:04 Family History Mother CVA (cerebral vascular accident) Hypertension Arthritis Heart disease Father Cancer Skin cancer Sister CVA (cerebral vascular accident) Hypertension Brother Hypertension CVA (cerebral vascular accident) Surgical History History of left shoulder replacement History of hip surgery History of left hip replacement H/O: hysterectomy Social History household members: spouse housing: house Smoking Status: Former smoker quit date: 01/02/15 pack-years: 40 Tobacco: How many years used: 40 Electronic Cigarette Use: not used second hand exposure: Yes quit status: has quit before alcohol intake: never what type of physical activity do you participate in: walking and other details: golf do you feel safe at home: Yes ROS ROS ED Constitutional Constitutional ED: Denies chills or fever(s) Respiratory/Chest Respiratory/Chest: Denies cough or dyspnea Gastrointestinal Gastrointestinal: Denies nausea or vomiting Musculoskeletal Musculoskeletal: Reports back pain and neck pain EXAM Physical Exam Const Vital Signs: 12/17/24 09:29 12/17/24 09:36 12/17/24 11:26 Temperature 98.3 F Temperature Source Oral Pulse Rate 70 71 Respiratory Rate 16 Respiratory Effort Normal Respiratory Depth Normal Respiratory Pattern Normal Blood Pressure 126/66 H 127/67 H Blood Pressure Mean 86 87 Pulse Ox 97 99 Oxygen Delivery Method Room Air Room Air Positive well nourished and well developed General Appearance ED: well developed and NAD HEENT HEENT Narrative: There is a 4 cm full-thickness curvilinear laceration over the medial aspect of the left eyebrow. There is mild bleeding noted. There is mild gapping of the wound margins. There is no bony crepitance or step-off. There are no foreign bodies noted. Neck Neck Narrative: There is tenderness over the cervical spine and paraspinal muscles. Cervical collar was in place. Resp normal respiratory effort and clear to auscultation bilaterally Cardio regular rate and regular rhythm GI non-distended GI Narrative: There is mild suprapubic tenderness. There is no rebound or guarding noted. Palpation: soft; Negative for guarding or rebound tenderness present Extremity Extremity Narrative: There is an older abrasion of the anterior medial aspect of the right lower leg. There is some mild surrounding erythema. There is mild warmth noted. There isfull range of motion. There is no bony crepitus or step-off. There is no deformity noted. Neuro CN's II-XII intact bilaterally, moves all extremities, no focal motor deficits and no sensory deficits noted Sensorium / Orientation: alert MDM MDM MDM Narrative Medical decision making narrative: Differential diagnosis includes intracranial bleeding, cervical spine fracture, urinary tract infection, closed head injury, and facial laceration. CT scan of the brain will be obtained to assess for intracranial bleeding. CT scan of the cervical spine will be obtained to assess for cervical spine fracture. Urinalysis will be obtained to assess for urinary tract infection and hematuria. Lab Data Labs: Laboratory Results - last 24 hr 12/17/24 11:14 Urine Color Yellow Urine Clarity Sl. Cloudy Urine pH 7.0 Ur Specific [place] 1.010 Urine Protein Negative Urine Glucose (UA) Normal Urine Ketones Negative Urine Occult Blood 50 H Urine Nitrite Positive H Urine Bilirubin Negative Urine Urobilinogen Normal Ur Leukocyte Esterase 500 H Urine RBC 0-5 SEEN Urine WBC 10-25 SEEN Ur Squamous Epith Cells 0-5 SEEN Urine Bacteria 2+ Urine Mucus 0 SEEN Radiography Diagnostic Testing: Clinical Impression(s) from Imaging Studies Brain CT 12/17/24 10:00 IMPRESSION: 1. Nasal bone fractures bilaterally. Slight angulation to the right but no displacement. 2. No acute intracranial process. Chronic microvascular ischemic changes and volume loss. Reading Location: [id number] Cervical Spine CT 12/17/24 10:00 IMPRESSION: There is loss of the lordosis. There is a 0.4 cm blastic focus in the right lateral mass of C1. There is a 0.6 cm blastic focus in the right lateral mass of C1. There is a 0.8 by 0.8 cm blastic lesion in the anterior C3 vertebral body. Consider whole-body bone scan for further characterization. There is no visible acute traumatic injury. Reading Location: [facility] CT scan of the brain was obtained. There is no acute intracranial abnormality. There are chronic changes noted. There is bilateral nasal bone fractures that are minimally displaced. This was interpreted by the radiologist and was also independently reviewed by myself. CT scan of the cervical spine was obtained. There is no acute fracture or spondylolisthesis. There is loss of the lordosis. There is a 0.4 cm blastic focus in the right lateral mass of C1 and a 0.6 cm blastic focus in the right lateral mass of C1 and an 0.8 x 0.8 blastic lesion in the anterior C3 vertebral body. There are some degenerative changes noted. This was interpreted by the radiologist and was also independently reviewed by myself. Treatment and Re-Evaluation Narrative: The wound was cleaned and irrigated with copious amounts of normal saline. The wound was anesthetized with 1% lidocaine with epinephrine locally. The wound was closed with 7 simple interrupted #5-0 nylon sutures under sterile technique. Patient tolerated the procedure well. Bacitracin dressing was applied. Patient and spouse were advised of her findings. Patient was given a dose of Keflex here. Patient was given a prescription for Keflex. Patient was instructed to follow-up with her primary care physician in 5 days for wound check and suture removal. Patient and understood and were agreeable with the plan. All questions were answered. Procedures Lacerations Left eyebrow: Length: 4 cm Depth: Sub Q Shape: Linear Prep: Sterile Conditions and Chlorhexadine Laceration repair: Irrigated, Lidocaine with epi, Local, Skin sutures and Wound explored Number of Sutures/Renee: 7 Suture Information: Ethilon, Simple and 5-0 Discharge Plan Triage Chief Complaint: Fall Other Complaint: Laceration ED Provider: John Webb Dx/Rx/DC Orders Clinical Impression: Facial laceration, Nasal bone fracture, Urinary tract infection, Fall, Cellulitis of right lower leg Instructions: ED Cellulitis, ED Nose Fracture, with X-Ray, ED FACIAL LACERATIONSuture Tape, ED Laceration Minimize Scars, ED Cystitis Female Adult Prescriptions: New cephalexin 500 mg capsule 500 mg PO Q6 Qty: 40 0RF No Action cholecalciferol (vitamin D3) [D3-2000] 50 mcg (2,000 unit) capsule 50 mcg PO DAILY atorvastatin 20 mg tablet 20 mg PO QHS carbidopa-levodopa 25-100 mg tablet 2 tab PO TID acetaminophen 500 mg Tablet 1,000 mg PO Q6H PRN PRN (Reason: Pain Score 1-10) Qty: 0 0RF bisacodyl 10 mg suppository 10 mg OK DAILY PRN (Reason: constipation) Patient Comments: 8 HRS AFTER MOM loperamide [Diamode] 2 mg tablet 2 mg PO Q6H PRN (Reason: loose stool) magnesium hydroxide [Milk of Magnesia] 400 mg/5 mL suspension 30 ml PO DAILY PRN (Reason: stomach upset) mineral oil Enema 118 ml OK DAILY PRN (Reason: constipation) rivastigmine tartrate 3 mg capsule 3 mg PO BID dextromethorphan-guaifenesin [Chest Congestion Relief DM] 10-100 mg/5 mL syrup 10 ml PO Q4H PRN (Reason: cough) Deep Sea Nasal 0.65 % aerosol,spray 2 spray intranasal PRN ondansetron HCl 4 mg tablet 4 mg PO Q8H PRN (Reason: nausea and vomiting) Primary Care Provider: Dmitry Burk Referrals: Dmitry Burk MD [Primary Care Provider, Family Practice] - 5 Days for suture removal Print Language: Indian Disposition Disposition: Home, Self Care What to do if you have Problems For any increased pain, shortness of breath, bleeding, nausea or vomiting, chestpain, or any unexpected problems, contact your Primary Care Provider. Call [facility] ([phone]) or report to the closest Emergency Room. Call 911 if necessary. 12/17/24 1541 <Electronically signed by John Webb DO> Cosigner Signature (if applicable): CC: Dr. Dmitry Burk MD ~ Signed [facility] Work Phone: Evaluation note* Diagnosis Malignant neoplasm of endometrium (HCC) Malignant neoplasm of corpus uteri, except isthmus documented in [facility] Work Phone: [facility]* Diagnosis Onset Date Resolution Status DDD (degenerative disc disease), lumbar acute DDD (degenerative disc disease), thoracic acute [facility] Work Phone: Evaluation note* Diagnosis Onset Date Resolution Status DDD (degenerative disc disease), lumbar acute DDD (degenerative disc disease), thoracic acute Polyneuropathy acute Mild cognitive impairment ch ronic Parkinson's disease chronic [facility] Work Phone: Evaluation note* Diagnosis Onset Date Resolution Status DDD (degenerative disc disease), lumbar acute DDD (degenerative disc disease), thoracic acute Polyneuropathy acute Mild cognitive impairment ch ronic Parkinson's disease chronic Debility acute Hyperlipidemia acute Parkinson disease acute Subdural hematoma acute Vitamin D deficiency acute [facility] Work Phone: Evaluation note* Diagnosis Onset Date Resolution Status Polyneuropathy acute Mild cognitive impairment ch ronic Parkinson's disease chronic Debility acute Hyperlipidemia acute Parkinson disease acute Vitamin D deficiency acute Subdural hematoma resolved [facility] Work Phone: Evaluation note* Diagnosis Onset Date Resolution Status Polyneuropathy acute Mild cognitive impairment ch ronic Parkinson's disease chronic Debility acute Hyperlipidemia acute Parkinson disease acute Vitamin D deficiency acute Subdural hematoma resolved Acute bronchitis, unspecified acute URI (upper respiratory infection) acute [facility] Work Phone: Evaluation note* Diagnosis Onset Date Resolution Status Debility acute Hyperlipidemia acute Parkinson disease acute Vitamin D deficiency acute Subdural hematoma resolved Acute bronchitis, unspecified acute URI (upper respiratory infection) acute DDD (degenerative disc disease), lumbar acute Osteoarthritis of right hip noneactive [facility] Work Phone: Evaluation note* Diagnosis Onset Date Resolution Status Acute bronchitis, unspecified acute URI (upper respiratory infection) acute DDD (degenerative disc disease), lumbar acute Osteoarthritis of right hip noneactive [facility] Work Phone: Evaluation noteNo assessment information available [facility] Work Phone: Evaluation note* Diagnosis PSP (progressive supranuclear palsy)- Primary Other degenerative diseases of the basal ganglia [facility] Diagnosis Psychological and behavioral factors associated with disorders or diseases classified elsewhere- Primary Progressive supranuclear palsy Other degenerative diseases of the basal ganglia [facility]* Diagnosis Endometrial cancer (CMS/HCC) (HCC)- Primary Malignant neoplasm of corpus uteri, except isthmus [facility]* Diagnosis Onset Date Resolution Status De Quervain's tenosynovitis, right acute Osteoarthritis of carpometacarpal joint of right thumb acute Right hand pain acute [facility] Work Phone: Evaluation note* Diagnosis PSP (progressive supranuclear palsy) (HCC)- Primary Other degenerative diseases of the basal ganglia documented in this encounter [facility] note* Diagnosis Onset Date Resolution Status De Quervain's tenosynovitis, right acute Osteoarthritis of carpometacarpal joint of right thumb acute Right hand pain acute De Quervain's tenosynovitis, right acute Osteoarthritis of carpometacarpal joint of right thumb acute Right hand pain acute [facility] Work Phone: Evaluation note* Diagnosis Imbalance- Primary Abnormality of gait PSP (progressive supranuclear palsy) (HCC) Other degenerative diseases of the basal ganglia Abnormality of gait Falls frequently Personal history of fall [facility]* Diagnosis PSP (progressive supranuclear palsy) (HCC)- Primary Other degenerative diseases of the basal ganglia Imbalance Abnormality of gait Abnormality of gait Falls frequently Personal history of fall [facility]* Diagnosis PSP (progressive supranuclear palsy) (HCC)- Primary Other degenerative diseases of the basal ganglia Imbalance Abnormality of gait Abnormality of gait Falls frequently Personal history of fall [facility]* Diagnosis PSP (progressive supranuclear palsy) (HCC)- Primary Other degenerative diseases of the basal ganglia Imbalance Abnormality of gait Abnormality of gait Falls frequently Personal history of fall [facility]* Diagnosis Onset Date Resolution Status De Quervain's tenosynovitis, right acute Osteoarthritis of carpometacarpal joint of right thumb acute Right hand pain acute De Quervain's tenosynovitis, right acute Osteoarthritis of carpometacarpal joint of right thumb acute Right hand pain acute Acute lumbar myofascial strain acute Compression fracture of L2 a anupamaamos [facility] Work Phone: Evaluation note* Diagnosis PSP (progressive supranuclear palsy) (HCC)- Primary Other degenerative diseases of the basal ganglia Imbalance Abnormality of gait Abnormality of gait Falls frequently Personal history of fall documented in this encounter [facility] note* Diagnosis PSP (progressive supranuclear palsy) (HCC)- Primary Other degenerative diseases of the basal ganglia documented in this encounter [facility] note* Diagnosis PSP (progressive supranuclear palsy) (HCC) Other degenerative diseases of the basal ganglia documented in this encounter [facility] note* Diagnosis PSP (progressive supranuclear palsy) (HCC) Other degenerative diseases of the basal ganglia [facility] Narrative No data available for this section [facility] Discharge instructions Additional Instructions Discharge home with 12/02/2021, WebPT PT/OT/.[facility] Work Phone: Hospital Discharge instructions No data available for this section [facility] Discharge instructions Additional Instructions Follow-up with your primary care physician as soon as possible. Continue your Tylenol as needed for pain.[facility] Work Phone: Hospital Discharge instructions Additional Instructions Scans of head face and neck are negative. X-ray right knee is negative. 9 sutures placed to your forehead. Wound care as discussed. Follow-up with your doctor for suture removal.[facility] Work Phone: Hospital Discharge instructions Additional Instructions Ice and take Tylenol as needed. If you develop a severe headache or vomiting return to the ER.[facility] Work Phone: Hospital Discharge instructions Additional Instructions CT brain negative. Use Tylenol up to 1 g every 6 hours as needed. Follow-up with your doctor.[facility] Work Phone: Progress note No data available for this section [facility] Reason for referral (narrative)* Consultation (Routine) - New Request Specialty Diagnoses / Procedures Referred By Contac t Referred To Contact Psychiatry Diagnoses Psychological and behavioral factors associated with disorders or diseases classified elsewhere Sugar Najera, PhD [address] [facility] [address] [place] [address] Referral ID Status Reason Start Date Expiration Date V isits Requested Visits Authorized [id number] New Request 12/13/2022 01/07/2024 1 1 [facility] (narrative)No reason for referral information availableWSouthern [facility] Work Phone: Summary Purpose Family History No Family History Records FoundUnknown Family Member Name Dates Details Father Comments:kidney cancer Status:Active High Chol Comments:mother, brother, si ster Status:Active HTN Comments:mother, brother, si str Status:Active Unknown Family Member Name Dates Details Father Comments:kidney cancer Status:Active High Chol Comments:mother, brother, si ster Status:Active HTN Comments:mother, brother, si str Status:Active Relationship Condition Age at Onset Recorded Date/T dov mother Cerebrovascular accident (CVA) Unknown Hypertension Unknown father Malignant neoplasm Unknown sister Cerebrovascular accident (CVA) Unknown brother Hypertension Unknown Cerebrovascular accident (CVA) Unknown Relationship Condition Age at Onset Recorded Date/T dov mother Cerebrovascular accident (CVA) Unknown Hypertension Unknown Arthritis Unknown Cardiac disease Unknown father Malignant neoplasm Unknown Malignant neoplasm of skin Unknown sister Cerebrovascular accident (CVA) Unknown brother Hypertension Unknown Cerebrovascular accident (CVA) Unknown Advance Directives No Advanced Directives Records FoundDocuments on File Type Date Recorded 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 ACP-Advance Directive ACP-Power of Nurse Office Advance Directive Response Recorded Date/ Time Living Will Yes August 03, 2020 1 0:53am Power of Nurse Office Yes August 03, 2020 10:53am Advance Directive Response Recorded Date/ Time Name of Medical Power of Nurse Office October 17, 2021 9:59am Living Will Yes October 17 9:59am Power of Nurse Office Yes October 17 9:59am Advance Directive Response Recorded Date/ Time Name of Medical Power of Nurse Office October 17, 2021 9:59am Name of Medical Power of Nurse Office SAMANTA PADRON, October 19, 2021 9:39am Living Will Yes October 19 9:39am Power of Nurse Office Yes October 19 9:39am Advance Directive Response Recorded Date/ Time Name of Medical Power of Nurse Office October 17, 2021 9:59am Name of Medical Power of Nurse Office SAMANTA PADRON, October 19, 2021 9:39am Living Will No November 21, 2021 9:15am Power of Nurse Office No November 9:15am Advance Directive Response Recorded Date/ Time Name of Medical Power of Nurse Office October 17, 2021 9:59am Name of Medical Power of Nurse Office SAMANTA PADRON, October 19, 2021 9:39am Name of Medical Power of Nurse Office Lito Padron, November 23, 2021 10:06am Living Will Yes November 23, 2021 10:06am Power of Nurse Office Yes November 10:06am Advance Directive Response Recorded Date/ Time Name of Medical Power of Nurse Office Lito Padron , November 23, 2021 9:06am Living Will Yes November 23, 2021 9:06am Power of Nurse Office Yes November 9:06am Advance Directive Response Recorded Date/ Time Living Will No May 21, 2022 10:41am Power of Nurse Office No May 21 10:41am Advance Directive Response Recorded Date/ Time Living Will No September 24, 2022 9:14am Power of Nurse Office No September 24 9:14am Advance Directive Response Recorded Date/ Time Name of Medical Power of Nurse Office Rafael January 15, 2023 4:42pm Living Will Yes January 15, 2 023 4:42pm Power of Nurse Office Yes January 15, 2023 4:42pm Advance Directive Response Recorded Date/ Time Living Will Yes January 15, 023 5:42pm Power of Nurse Office Yes January 15, 2023 5:42pm Advance Directive Response Recorded Date/ Time Name of Medical Power of Nurse Office rafael mata cosmo May 23, 2023 5:07pm Living Will Yes May 23, 2023 5:07pm Power of Nurse Office Yes May 22 5:07pm Advance Directive Response Recorded Date/ Time Name of Medical Power of Nurse Office rafael mata cosmo May 23, 2023 5:07pm Name of Medical Power of Nurse Office Rafael Gomez er June 25, 2023 4:19pm Living Will Yes June 25, 2023 4:19pm Power of Nurse Office Yes June 24 4:19pm Advance Directive Response Recorded Date/ Time Name of Medical Power of Nurse Office rafael mata cosmo May 23, 2023 5:07pm Name of Medical Power of Nurse Office Rafael Gomez er June 25, 2023 4:19pm Name of Medical Power of Nurse Office --samanta July 04, 2023 7:08pm Living Will Yes July 04, 2023 7: 08pm Power of Nurse Office Yes July 04, 2023 7:08pm Advance Directive Response Recorded Date/ Time Do you have a Healthcare Power of Nurse Office? Yes December 17, 2024 9:35am Instructions Name Dates Details How to access [...] smoker Start:07-Dec-2019 Instruction Type:Provider Instructions for Treatment Chief Complaint and Reason for Visit Chief Complaint xray Lumbar spine SCREENING SHOULDER Reason for Visit DDD (degenerative di sc disease), lumbar DDD (degenerative disc disease), thoracic Chief Complaint xray Lumbar spine SCREENING SHOULDER BACK PAIN/RX HERE Reason for Visit DDD (degenerative di sc disease), lumbar DDD (degenerative disc disease), thoracic Chief Complaint SCREENING SHOULDER BACK PAIN/RX HERE Lumbar spine S/P REVERSE ARTHROPLASTY L SHLD/RX HERE SCREENING Reason for Visit DDD (degenerative di sc disease), lumbar DDD (degenerative disc disease), thoracic Chief Complaint SCREENING SHOULDER BACK PAIN/RX HERE Lumbar spine SCREENING S/P REVERSE ARTHROPLASTY L SHLD/RX HERE Reason for Visit DDD (degenerative di sc disease), lumbar DDD (degenerative disc disease), thoracic Chief Complaint SCREENING SHOULDER BACK PAIN/RX HERE Lumbar spine SCREENING S/P REVERSE ARTHROPLASTY L SHLD/RX HERE fall Reason for Visit DDD (degenerative di sc disease), lumbar DDD (degenerative disc disease), thoracic Chief Complaint SCREENING SHOULDER BACK PAIN/RX HERE Lumbar spine SCREENING S/P REVERSE ARTHROPLASTY L SHLD/RX HERE fall head injury Reason for Visit DDD (degenerative di sc disease), lumbar DDD (degenerative disc disease), thoracic Chief Complaint SHOULDER BACK PAIN/RX HERE Lumbar spine SCREENING S/P REVERSE ARTHROPLASTY L SHLD/RX HERE fall head injury POSSIBLE PARKINSONS PARKINSON'S/INT LABS Laceration Reason for Visit DDD (degenerative di sc disease), lumbar DDD (degenerative disc disease), thoracic Polyneuropathy Mild cognitive impairment Parkinson's disease Chief Complaint BACK PAIN/RX HERE Lumbar spine SCREENING S/P REVERSE ARTHROPLASTY L SHLD/RX HERE fall head injury POSSIBLE PARKINSONS PARKINSON'S/INT LABS Laceration SDH Reason for Visit DDD (degenerative di sc disease), lumbar DDD (degenerative disc disease), thoracic Polyneuropathy Mild cognitive impairment Parkinson's disease Debility Hyperlipidemia Parkinson disease Subdural hematoma Vitamin D deficiency Chief Complaint POSSIBLE PARKINSONS PARKINSON'S/INT LABS Laceration SDH XRAY PD,SDH,FALLS/RX HERE Reason for Visit Polyneuropathy Mild cognitive impairment Parkinson's disease Debility Hyperlipidemia Parkinson disease Vitamin D deficiency Subdural hematoma Chief Complaint POSSIBLE PARKINSONS PARKINSON'S/INT LABS Laceration SDH XRAY PD,SDH,FALLS/RX HERE COUGH, SNEEZING Reason for Visit Polyneuropathy Mild cognitive impairment Parkinson's disease Debility Hyperlipidemia Parkinson disease Vitamin D deficiency Subdural hematoma Acute bronchitis, unspecified URI (upper respiratory infection) Chief Complaint SDH XRAY PD,SDH,FALLS/RX HERE COUGH, SNEEZING LUMBER SPINE right hip room 1 R HIP RX HERE Reason for Visit Debility Hyperlipidemia Parkinson disease Vitamin D deficiency Subdural hematoma Acute bronchitis, unspecified URI (upper respiratory infection) DDD (degenerative disc disease), lumbar Osteoarthritis of right hip Chief Complaint PD,SDH,FALLS/RX HERE COUGH, SNEEZING LUMBER SPINE right hip room 1 R HIP RX HERE PARKINSONS DISEASE / RX HERE BACK PAIN Reason for Visit Acute bronchitis, un specified URI (upper respiratory infection) DDD (degenerative disc disease), lumbar Osteoarthritis of right hip Chief Complaint PD,SDH,FALLS/RX HERE COUGH, SNEEZING LUMBER SPINE right hip room 1 R HIP RX HERE PARKINSONS DISEASE / RX HERE BACK PAIN FALL/ INJURY- TAILBONE AREA Reason for Visit Acute bronchitis, un specified URI (upper respiratory infection) DDD (degenerative disc disease), lumbar Osteoarthritis of right hip Chief Complaint BACK PAIN FALL/ INJURY- TAILBONE AREA PARKINSONS DISEASE / RX HERE Parkinson's disease Chief Complaint BACK PAIN FALL/ INJURY- TAILBONE AREA PARKINSONS DISEASE / RX HERE Parkinson's disease LAC Chief Complaint PARKINSONS DISEASE / RX HERE Parkinson's disease LAC laceration, head injury, weakness Chief Complaint laceration, head inj ury, weakness SEQUELA FALLS. RX HERE HEAD INJURY Chief Complaint HEAD INJURY RIGHT HAND INJURY HYPOPHONIA. RX HERE RIGHT HAND Reason for Visit De Quervain's tenosy novitis, right Osteoarthritis of carpometacarpal joint of right thumb Right hand pain Chief Complaint RIGHT HAND INJURY HYPOPHONIA. 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 RX HERE RIGHT HAND RT HAND fall, wrist injury Reason for Visit De Quervain's tenosy novitis, right Osteoarthritis of carpometacarpal joint of right thumb Right hand pain De Quervain's tenosynovitis, right Osteoarthritis of carpometacarpal joint of right thumb Right hand pain Chief Complaint RIGHT HAND INJURY HYPOPHONIA. RX HERE RIGHT HAND RT HAND fall, wrist injury LEFT WRIST STRAIN. RX HERE Reason for Visit De Quervain's tenosy novitis, right Osteoarthritis of carpometacarpal joint of right thumb Right hand pain De Quervain's tenosynovitis, right Osteoarthritis of carpometacarpal joint of right thumb Right hand pain Chief Complaint RIGHT HAND INJURY HYPOPHONIA. RX HERE RIGHT HAND RT HAND fall, wrist injury LEFT WRIST STRAIN. RX HERE Fall, back Reason for Visit De Quervain's tenosy novitis, right Osteoarthritis of carpometacarpal joint of right thumb Right hand pain De Quervain's tenosynovitis, right Osteoarthritis of carpometacarpal joint of right thumb Right hand pain Chief Complaint RIGHT HAND INJURY HYPOPHONIA. RX HERE RIGHT HAND RT HAND fall, wrist injury LEFT WRIST STRAIN. RX HERE Fall, back LUMBAR SPINE FALL Reason for Visit De Quervain's tenosy novitis, right Osteoarthritis of carpometacarpal joint of right thumb Right hand pain De Quervain's tenosynovitis, right Osteoarthritis of carpometacarpal joint of right thumb Right hand pain Acute lumbar myofascial strain Compression fracture of L2 Chief Complaint RIGHT HAND INJURY HYPOPHONIA. RX HERE RIGHT HAND RT HAND fall, wrist injury LEFT WRIST STRAIN. RX HERE Fall, back LUMBAR SPINE FALL SPUTUM/ CXR LEFT WRIST STRAIN. RX HERE Reason for Visit De Quervain's tenosy novitis, right Osteoarthritis of carpometacarpal joint of right thumb Right hand pain De Quervain's tenosynovitis, right Osteoarthritis of carpometacarpal joint of right thumb Right hand pain Acute lumbar myofascial strain Compression fracture of L2 Chief Complaint Admit Date [facility] WORK September 08, 2024 5:0 0am fall December 17, 2024 9 :26am Reason for Referral Specialty Diagnoses / Procedures Referred By Betzaida t Referred To Contact [facility] Diagnoses PSP (progressive supranuclear palsy) ([facility]) Procedures CONSULT TO PHYSICAL THERAPY PHYSICAL THERAPY EVALUATION HIGH COMPLEX 45 MINS Juliet Chanel MD [address] [place] [address] [facility] [place] [address] Referral ID Status Reason Start Date Expiration Date Visits Requested Visits Authorized [id number] Authorized PCP Requested Referral Auto-Generate d Referral 05/15/2023 05/14/2024 99 99 Specialty Diagnoses / Procedures Referred By Contac t Referred To Contact Diagnoses PSP (progressive supranuclear palsy) ([facility]) Procedures PROVIDER ORDERED FOLLOW UP OFFICE/OUTPATIENT NEW HIGH MDM 60 MINUTES Juliet Chanel MD [address] [place] [address] Referral ID Status Reason Start Date Expiration Date Visits Requested Visits Authorized [id number] Authorized PCP Requested Referral 08/15/2023 05/14/2024 1 1 Specialty Diagnoses / Procedures Referred By Contac t Referred To Contact Speech Therapy Diagnoses PSP (progressive supranuclear palsy) Maggi Gonzalez SIGN BUILDER SUPERVISOR-TRAVEL ACCOMMODATION INSPECTOR [address] [place] [address] Referral ID Status Reason Start Date Expiration Date V isits Requested Visits Authorized [id number] New Request 12/13/2022 01/07/2024 1 1 Specialty Diagnoses / Procedures Referred By Contac t Referred To Contact Occupational Therapy Diagnoses PSP (progressive supranuclear palsy) Maggi Gonzalez SIGN BUILDER SUPERVISOR-TRAVEL ACCOMMODATION INSPECTOR [address] [place] [id number] Referral ID Status Reason Start Date Expiration Date V isits Requested Visits Authorized [id number] New Request 12/13/2022 01/07/2024 1 1 Specialty Diagnoses / Procedures Referred By Contac t Referred To Contact Physical Therapy Diagnoses PSP (progressive supranuclear palsy) Maggi Gonzalez SIGN BUILDER SUPERVISOR-TRAVEL ACCOMMODATION INSPECTOR [address] [place] [id number] Referral ID Status Reason Start Date Expiration Date V isits Requested Visits Authorized [id number] New Request 12/13/2022 01/07/2024 1 1 Additional Source Comments INFORMATION SOURCE (unrecogn ized section and content) DATE CREATED AUTHOR 08/23/2017 [facility] DATE CREATED AUTHOR AUTHOR'S ORGANIZ ATION 05/26/2020 [facility] ntsylvia Monroy DATE CREATED AUTHOR AUTHOR'S ORGANIZ ATION 08/19/2020 [facility] DATE CREATED AUTHOR AUTHOR'S ORGANIZ ATION 01/17/2022 [facility] ([place]) DATE CREATED AUTHOR AUTHOR'S ORGANIZ ATION 12/29/2022 [facility] DATE CREATED AUTHOR AUTHOR'S ORGANIZ ATION 11/10/2023 [facility] DATE CREATED AUTHOR AUTHOR'S ORGANIZ ATION 04/30/2024 [facility] DATE CREATED AUTHOR AUTHOR'S ORGANIZ ATION 12/25/[address] [facility] DATE CREATED AUTHOR AUTHOR'S ORGANIZ ATION 01/02/2025 [facility] Goals (unrecognized section and content) Goals may be documented in a n alternate sectionGoals may be documented in an alternate sectionGoals may be documented in an alternate sectionGoals may be documented in an alternate sectionGoals may be documented in an alternate sectionGoals may be documented in an alternate sectionGoals may be documented in an alternate section No data available for this section No data available for this sectionGoals may be documented in an alternate sectionGoals may be documented in an alternate sectionGoals may be documented in an alternate sectionGoals may be documented in an alternate sectionGoals may be documented in an alternate sectionGoals may be documented in an alternate sectionGoals may be documented in an alternate sectionGoals may be documented in an alternate sectionGoals may be documented in an alternate sectionGoals may be documented in an alternate sectionGoals may be documented in an alternate sectionGoals may be documented in an alternate sectionGoals may be documented in an alternate sectionGoals may be documented in an alternate sectionGoals may be documented in an alternate sectionGoals may be documented in an alternate sectionGoals may be documented in an alternate section Care Team (unrecognized sect ion and content) Care Team Personnel Name: MICHEAL BETANCOURT MD Member Role: Primary Care Physician Address: Address: [address] [place] [address] Care Team Related Persons Name: GWENCOSMO SAMANTA Address: [address] [address] Care Team Personnel Name: MICHEAL BETANCOURT MD Member Role: Primary Care Physician Address: Address: [address] [place] [address] [place] [address]- Care Team Related Persons Name: SAMANTA PADRON Address: Home [address] [place] [phone] Care Teams (unrecognized sec tion and content) Team Status: Active Member Role Status Dates Dr. Micheal Betancourt MD Family Provider Active Dr. Micheal Betancourt MD Primary Care Provider Active Team Status: Inactive Member Role Status Dates Dr. Micheal Betancourt MD Primary Care Provider Active Dr. Kelvin Pulliam MD Attending Provider Active Team Status: Inactive Member Role Status Dates Dr. Micheal Betancourt MD Primary Care Provider, Referring Provider Active Ozzy Peterson PA, PA Attending Provider Active Team Status: Inactive Member Role Status Dates Dr. Micheal Betancourt MD Primary Care Provider, Referring Provider Active Dr. Mariano David DO Attending Provider Active Team Status: Inactive Member Role Status Dates Dr. Micheal Betancourt MD Primary Care Provider, Referring Provider Active Dr. Winston Saunders DO Attending Provider Active Team Status: Inactive Member Role Status Dates Dr. Micheal Betancourt MD Primary Care Provider, Attending Provider Active Dr. Duncan Pollard MD Referring Provider Active Dr. Andrew Menjivar MD Other Provider Active Team Status: Inactive Member Role Status Dates Dr. Micheal Betancourt MD Primary Care Provider Active Dr. Duncan Pollard MD Admit Provider, Attending Provid er Active Team Status: Inactive Member Role Status Dates Dr. Micheal Betancourt MD Primary Care Provider Active Dr. Ryne Munoz MD Attending Provider, Referring Provider Active Team Status: Inactive Member Role Status Dates Dr. Micheal Betancourt MD Primary Care Provider Active Dr. Mariano David DO Attending Provider, Referring Provider Active Team Status: Active Member Role Status Dates Dr. Micheal Betancourt MD Family Provider Active No Primary Care Physician Primary Care Provider Active Team Status: Active Member Role Status Dates Dr. Micheal Betancourt MD Primary Care Provider Active ECHO Hi Attending Provider, Referring Provid er Active Team Status: Inactive Member Role Status Dates Home Segura MD Emergency Provider Active No Primary Care Physician Primary Care Provider Active Team Status: Inactive Member Role Status Dates Home Segura MD Attending Provider, Emergency Provid er Active No Primary Care Physician Primary Care Provider Active Team Status: Inactive Member Role Status Dates No Primary Care Physician Primary Care Provider Active Dr. Uday Hendrickson MD Attending Provider, Referring Pr ovider Active Team Status: Active Member Role Status Dates Dr. Micheal Betancourt MD Family Provider Active Juliet Mohamud DO Primary Care Provider Active Team Status: Active Member Role Status Dates Juliet Mohamud DO Primary Care Provider, Attending Provider Active Team Status: Inactive Member Role Status Dates Juliet Mohamud DO Primary Care Provi milton, Attending Provider, Referring Provider Active Team Status: Inactive Member Role Status Dates Juliet Mohamud DO Primary Care Provider Active YOVANY TIERNEY Attending Provider, Referring Provider Active Team Status: Inactive Member Role Status Dates Juliet Mohamud , Primary Care Provider, Attending Provider Active Team Status: Inactive Member Role Status Dates Juliet Mohamud DO Primary Care Provider Active Dr. Flo Christianson , Referring Provider, Emergency Pro vider Active Team Status: Active Member Role Status Dates Dr. Micheal Betancourt MD Family Provider Active Dmitry Burk MD Primary Care Provider Active Team Status: Inactive Member Role Status Dates Juliet Mohamud DO Primary Care Provider Active Dr. Flo Christianson , Attending Provider, Referring Provider, Emergency Provider Active Team Status: Inactive Member Role Status Dates Dmitry Burk MD Primary Care Provider, Attending Prov ider Active Team Status: Inactive Member Role Status Dates Dr. Micheal Betancourt MD Primary Care Provider Active ECHO Hi Attending Provider, Referring Provid er Active Team Status: Inactive Member Role Status Dates Dr. Lamont Escobedo DO Emergency Provider Active Juliet Mohamud DO Primary Care Provider Active Team Status: Inactive Member Role Status Dates Dmitry Burk MD Attending Provider, Referring Provide r Active Juliet Mohamud DO Primary Care Provider Active Team Status: Inactive Member Role Status Dates Juliet Mohamud DO Primary Care Provider Active Dr. Flores Ibrahim , Emergency Provider Active Team Status: Inactive Member Role Status Dates Dr. Lamont Escobedo DO Attending Provider, Emergency Provide r Active Juliet Mohamud DO Primary Care Provider Active Entry Level Sales Representative Relationship Specialty Start Date End Date Micheal Betancourt [address] [facility] [place] [id number] PCP - General 01/30/16 Rabia Pedroza, SIGN BUILDER SUPERVISOR - TRAVEL ACCOMMODATION INSPECTOR [address] [place] [address] Nurse Practitioner Certified Nurse Practitioner 02/08/22 Entry Level Sales Representative Relationship Specialty Start Date End Date Micheal Betancourt [address] [place] [phone] PCP - General 01/30/16 Rabia Pedroza, SIGN BUILDER SUPERVISOR - TRAVEL ACCOMMODATION INSPECTOR [address] [place] [address] Nurse Practitioner Certified Nurse Practitioner 02/08/22 Team Status: Inactive Member Role Status Marguerite Burk MD Primary Care Provider, Referring Prov ider Active Micheal Dawson MD Attending Provider Active Team Status: Inactive Member Role Status Marguerite Mohamud DO Primary Care Provider Active Dr. Flores Ibrahim , DO Attending Provider, Emergency P marcos Active Team Status: Inactive Member Role Status YOVANY Shipman Attending Provider, Referring Provider Active Dmitry Burk MD Primary Care Provider Active Team Status: Active Member Role Status Marguerite Burk MD Primary Care Provide r, Attending Provider, Referring Provider Active Team Status: Inactive Member Role Status Marguerite Burk MD Primary Care Provide r, Attending Provider, Referring Provider Active Entry Level Sales Representative Relationship Specialty Start Date End Date Dmitry Burk MD [address] [facility] [address] [place] [address] PCP - General Internal Medicine 05/15/23 Team Status: Inactive Member Role Status Marguerite Burk MD Primary Care Provider Active Dr. Lamont Escobedo , Emergency Provider Active Entry Level Sales Representative Relationship Specialty Start Date End Date Dmitry Burk MD [address] [facility] [address] [place] [address] PCP - General Internal Medicine 05/15/23 Team Status: Inactive Member Role Status Marguerite Burk MD Primary Care Provider Active Dr. Lamont Escobedo DO Attending Provider, Emergency Provide r Active Entry Level Sales Representative Relationship Specialty Start Date End Date Dmitry Burk MD [address] [facility] [address] [place] [address] PCP - General Internal Medicine 05/15/23 Entry Level Sales Representative Relationship Specialty Start Date End Date Dmitry Burk MD [address] [facility] Services [address] [place] [address] PCP - General Internal Medicine 05/15/23 Team Status: Inactive Member Role Status Dates Dmitry Burk MD Primary Care Provider Active Dr. Louie Manzo MD Emergency Provider Active Entry Level Sales Representative Relationship Specialty Start Date End Date Dmitry Burk MD [address] [facility] [address] [place] [address] PCP - General Internal Medicine 05/15/23 Team Status: Inactive Member Role Status Dates Dmitry Burk MD Primary Care Provider, Referring Prov ider Active Dr. Donavan Sandhu MD Attending Provider Active Team Status: Inactive Member Role Status Dates Dmitry Burk MD Primary Care Provider Active Dr. Louie Manzo MD Attending Provider, Emergency Provi milton Active Entry Level Sales Representative Relationship Specialty Start Date End Date Dmitry Burk MD [address] [facility] [address] [place] [address] PCP - General Internal Medicine 05/15/23 Entry Level Sales Representative Relationship Specialty Start Date End Date Dmitry Burk MD [address] [facility] [address] [place] [address] PCP - General Internal Medicine 05/15/23 Team Status: Active Member Role Status Dates Dmitry Burk MD Primary Care Provider Active Dr. Romeo Powell MD Attending Provider, Referrin g Provider Active Team Status: Active Member Role Status Dates Dmitry Burk MD Primary Care Provider Active Dr. Donavan Sandhu MD Attending Provider, Referring Pr ovider Active Entry Level Sales Representative Relationship Specialty Start Date End Date Dmitry Burk MD [address] [facility] [address] [place] [address] PCP - General Internal Medicine 05/15/23 Entry Level Sales Representative Relationship Specialty Start Date End Date mDitry Burk MD [address] [facility] [address] [place], [place] [address] PCP - General Internal Medicine 05/15/23 Entry Level Sales Representative Relationship Specialty Start Date End Date Dmitry Burk MD [address] [facility] [address] [place], [place] [id number] PCP - General Internal Medicine 05/15/23 Entry Level Sales Representative Relationship Specialty Start Date End Date Dmitry Burk MD [address] [facility] [address] [place], [place] [address] PCP - General Internal Medicine 05/15/23 Entry Level Sales Representative Relationship Specialty Start Date End Date Dmitry Burk MD [address] [facility] [address] [place], [place] [id number] PCP - General Internal Medicine 05/15/23 Entry Level Sales Representative Relationship Specialty Start Date End Date Micheal Betancourt [address] [place] [address] [facility] [place] [id number] PCP - General 01/30/16 Rabia Pedroza APRN - TRAVEL ACCOMMODATION INSPECTOR [address] [address] Nurse Practitioner Certified Nurse Practitioner 02/08/22 Ryne Munoz MD [address] [facility] [address] [place] [address] Consulting Physician Gynecologic Oncology 03/23/24 Entry Level Sales Representative Relationship Specialty Start Date End Date Dmitry Burk MD [address]YAN [address] [place] [address] PCP - General Internal Medicine 05/15/23 Team Status: Active Member Role/Relationship Status Dates Dmitry Burk MD Primary care physician Active Team Status: Active Member Role/Relationship Status Dates Dmitry Burk MD Primary care physician Active S tart: September 08, 2024 Demetrio LAUREANO MD Attending physician Active Start: September 08, 2024 Team Status: Inactive Member Role/Relationship Status Dates Dmitry Burk MD Primary care physician Active S tart: December 17, 2024 End: December 17, 2024 Dr. John Webb DO Attending physician Active Start: December 17, 2024 End: December 17, 2024 Dr. John Webb DO Emergency Departm ent Physician Active Start: December 17, 2024 End: December 17, 2024 Reason for Visit (unrecogniz ed section and content) Reason Comments Physical Therapy Specialty Diagnoses / Procedures Referred By Contac t Referred To Contact [facility] Diagnoses PSP (progressive supranuclear palsy) (HCC) Procedures CONSULT TO PHYSICAL THERAPY PHYSICAL THERAPY EVALUATION HIGH COMPLEX 45 MINS Juliet Chanel MD [address] [address] [facility] [address] [address] Referral ID Status Reason Start Date Expiration Date Visits Requested Visits Authorized [id number] Authorized PCP Requested Referral Auto-Generate d Referral 05/15/2023 05/14/2024 99 99 Reason Comments Follow Up Specialty Diagnoses / Procedures Referred By Contac t Referred To Contact Diagnoses PSP (progressive supranuclear palsy) (HCC) Procedures PROVIDER ORDERED FOLLOW UP OFFICE/OUTPATIENT NEW HIGH MDM 60 MINUTES Juliet Chanel MD [address] [address] Referral ID Status Reason Start Date Expiration Date V isits Requested Visits Authorized [id number] Closed PCP Requested Referral 01/17/2024 09/15/2024 1 1 Reason Comments PT Discharge Reason Comments PT Progress Note Reason Comments Follow-up Other PSP Reason Comments New Patient PD Multidisciplinary Clinic Reason Comments Follow-up Pt has no concerns. Reason Onset Date Comments Results 03/12/2023 Reason Comments New Patient Reason Comments PT Eval Patient Education Reason Comments Clarify Sinemet Reason Comments Insurance Authorization Sinemet Reason Comments PSP Referral ID Status Reason Start Date Expiration Date V isits Requested Visits Authorized [id number] Closed PCP Requested Referral 08/15/2023 05/14/2024 1 1 Reason Comments Research Spoke with Ramos out PSP trial information. Would like time to review study and I will connect with her early next week. Reason Comments Research LVM for Dalzell trial Reason Comments Research Asked for call back regarding Dalzell Study Reason Comments Research IRB [id number] Specialty Diagnoses / Procedures Referred By Betzaida t Referred To Contact Diagnoses PSP (progressive supranuclear palsy) (HCC) Procedures PROVIDER ORDERED FOLLOW UP OFFICE/OUTPATIENT NEW HIGH MDM 60 MINUTES Juliet Chanel MD [address] [place] [address] [address] [place] [address] Phone: tel: fax: Referral ID Status Reason Start Date Expiration Date V isits Requested Visits Authorized [id number] Closed PCP Requested Referral 06/19/2024 01/19/2025 1 1 Source Comments (unrecognize d section and content) In the event this informatio n is protected by the Federal Confidentiality of Alcohol and Drug Abuse Patient Records regulations: The Federal rules restrict any use of the information to criminally investigate or prosecute any alcohol or drug abuse patient.[facility] Center[facility] the event this information is protected by the Federal Confidentiality of Alcohol and Drug Abuse Patient Records regulations: The Federal rules restrict any use of the information to criminally investigate or prosecute any alcohol or drug abuse patient.[facility] CenterIn the event this information is protected by the Federal Confidentiality of Alcohol and Drug Abuse Patient Records regulations: The Federal rules restrict any use of the information to criminally investigate or prosecute any alcohol or drug abuse patient.[facility] CenterIn the event this information is protected by the Federal Confidentiality of Alcohol and Drug Abuse Patient Records regulations: The Federal rules restrict any use of the information to criminally investigate or prosecute any alcohol or drug abuse patient.[facility] CenterIn the event this information is protected by the Federal Confidentiality of Alcohol and Drug Abuse Patient Records regulations: The Federal rules restrict any use of the information to criminally investigate or prosecute any alcohol or drug abuse patient.[facility] the event this information is protected by the Federal Confidentiality of Alcohol and Drug Abuse Patient Records regulations: The Federal rules restrict any use of the information to criminally investigate or prosecute any alcohol or drug abuse patient.[facility] CenterIn the event this information is protected by the Federal Confidentiality of Alcohol and Drug Abuse Patient Records regulations: The Federal rules restrict any use of the information to criminally investigate or prosecute any alcohol or drug abuse patient.[facility] CenterIn the event this information is protected by the Federal Confidentiality of Alcohol and Drug Abuse Patient Records regulations: The Federal rules restrict any use of the information to criminally investigate or prosecute any alcohol or drug abuse patient.[facility] CenterIn the event this information is protected by the Federal Confidentiality of Alcohol and Drug Abuse Patient Records regulations: The Federal rules restrict any use of the information to criminally investigate or prosecute any alcohol or drug abuse patient.[facility] CenterIn the event this information is protected by the Federal Confidentiality of Alcohol and Drug Abuse Patient Records regulations: The Federal rules restrict any use of the information to criminally investigate or prosecute any alcohol or drug abuse patient.[facility] CenterIn the event this information is protected by the Federal Confidentiality of Alcohol and Drug Abuse Patient Records regulations: The Federal rules restrict any use of the information to criminally investigate or prosecute any alcohol or drug abuse patient.[facility] CenterIn the event this information is protected by the Federal Confidentiality of Alcohol and Drug Abuse Patient Records regulations: The Federal rules restrict any use of the information to criminally investigate or prosecute any alcohol or drug abuse patient.[facility] CenterIn the event this information is protected by the Federal Confidentiality of Alcohol and Drug Abuse Patient Records regulations: The Federal rules restrict any use of the information to criminally investigate or prosecute any alcohol or drug abuse patient.[facility] CenterIn the event this information is protected by the Federal Confidentiality of Alcohol and Drug Abuse Patient Records regulations: The Federal rules restrict any use of the information to criminally investigate or prosecute any alcohol or drug abuse patient.[facility] CenterIn the event this information is protected by the Federal Confidentiality of Alcohol and Drug Abuse Patient Records regulations: The Federal rules restrict any use of the information to criminally investigate or prosecute any alcohol or drug abuse patient.[facility] CenterIn the event this information is protected by the Federal Confidentiality of Alcohol and Drug Abuse Patient Records regulations: The Federal rules restrict any use of the information to criminally investigate or prosecute any alcohol or drug abuse patient.[facility] CenterIn the event this information is protected by the Federal Confidentiality of Alcohol and Drug Abuse Patient Records regulations: The Federal rules restrict any use of the information to criminally investigate or prosecute any alcohol or drug abuse patient.[facility] CenterIn the event this information is protected by the Federal Confidentiality of Alcohol and Drug Abuse Patient Records regulations: The Federal rules restrict any use of the information to criminally investigate or prosecute any alcohol or drug abuse patient.[facility] CenterIn the event this information is protected by the Federal Confidentiality of Alcohol and Drug Abuse Patient Records regulations: The Federal rules restrict any use of the information to criminally investigate or prosecute any alcohol or drug abuse patient.[facility] CenterIn the event this information is protected by the Federal Confidentiality of Alcohol and Drug Abuse Patient Records regulations: The Federal rules restrict any use of the information to criminally investigate or prosecute any alcohol or drug abuse patient.[facility] CenterIn the event this information is protected by the Federal Confidentiality of Alcohol and Drug Abuse Patient Records regulations: The Federal rules restrict any use of the information to criminally investigate or prosecute any alcohol or drug abuse patient.[facility] CenterIn the event this information is protected by the Federal Confidentiality of Alcohol and Drug Abuse Patient Records regulations: The Federal rules restrict any use of the information to criminally investigate or prosecute any alcohol or drug abuse patient.[facility] FOR RECORDS PERTAINING TO PATIENTS WHO ARE [...] BE BASED ON THE PRIMARY CLINICAL RECORDS. [facility] [employer] [facility]. provides no warranty or guarantee of the accuracy or completeness of information in this document.
[2025-02-12 17:50] LABS: Allen Test Positive; Base Excess -1 mmol/L (-2 to +2); FI02 21.0; PO2 54 mmHG (75-100); SITE L Radial; SO2 91 % (94-98)
[2025-02-12] MEDS: 0.9% Normal Saline (1000mL) 1,000 ML 1000 ML IV (17:54)
[2025-02-12 18:00] LABS: Mucous, Urine 0 SEEN /hpf (<or=2+)
[2025-02-12 18:03] LABS: Color, Urine Yellow (Yellow); Glucose, Dipstick Normal (Normal); Ketone-Dipstick 5 mg/dl (Negative); Leukocyte Esterase-Dipstick 500 /ul (Negative); Nitrite-Dipstick Positive (Negative); Occult Blood-Urine 150 /ul (Negative); Protein-Dipstick 100 mg/dl (Negative); Specific Gravity, Urine 1.020 (1.002-1.030); Urine Bilirubin Dipstick Negative (Negative)
[2025-02-12 18:05] LABS: Troponin T High Sensitivity 15 ng/L (<=14)
[2025-02-12 18:07] LABS: Hematocrit 43.1 % (37-47); Hemoglobin 14.1 g/dL (12.0-15.0); Mean Corp Hgb Conc 32.7 g/dL (32-36); Mean Corpuscular Volume 92.1 fL (81-99); Mean Platelet Vol. 9.7 fl (6.2-12.0); POSITIVE MORPHOLOGY YES; Platelet Count 292 K/mm3 (150-450); RBC Distribution Width CV 13.4 % (11.6-14.6); RBC Distribution Width SD 45.2 fl (35.1-43.9); Red Blood Count 4.68 M/mm3 (4.2-5.4); White Blood Count 19.4 K/mm3 (4.4-11.0)
[2025-02-12 18:08] LABS: Anion Gap 13 (5-15); BUN 13 mg/dL (4-19); BUN/Creat Ratio 15.2 RATIO (10-20); Calcium,Total 9.5 mg/dL (7.6-11.0); Carbon Dioxide 22.0 mmol/L (21.0-32.0); Chloride 102 mmol/L (98-108); Estimated Creatinine Clearance 42.85 ml/min (50-250); Glucose 150 mg/dL (70-99); Potassium 3.4 mmol/L (3.3-5.1)
[2025-02-12 18:14] LABS: Differential Indicated MANUAL DIFF
--- NOTE | 2025-02-12 18:20 | CT_ITS ---
PROCEDURE: CT BRAIN/HEAD WITHOUT CONTRAST 02/12/2025 REASON FOR EXAM: ALTERED MENTAL STATUS TECHNIQUE: Procedure Code: CTBR Modality: CT Procedure: BRAIN/HEAD WITHOUT CONTRAST Coronal and Sagittal reconstruction series were provided. One or more dose reduction techniques were used (e.g., Automated exposure control, adjustment of the mA and/or kV according to patient size, use of iterative reconstruction technique. RADIATION DOSE SUMMARY: CTDlvol: 90 mGy DLP: 1558.47 mGycm COMPARISON: 12/17/2024 FINDINGS: No acute intracranial hemorrhage, extra-axial collection, mass effect or evidence of acute infarct. Moderate generalized brain parenchymal volume loss and chronic microangiopathic changes. Small focus of chronic lacunar infarct in the left basal ganglia region. Atherosclerotic vascular calcifications. Grossly unremarkable orbits. Intact skull base and calvarium. Clear sinuses and mastoid air cells. CT/Brain/Head without Contrast IMPRESSION: No evidence of acute intracranial pathology. Moderate parenchymal volume loss and chronic microangiopathic changes. Reading Location: [id number]
--- NOTE | 2025-02-12 18:23 | RAD_ITS ---
PROCEDURE: CHEST PA AND LATERAL 02/12/2025 REASON FOR EXAM: ALTERED MENTAL STATUS TECHNIQUE: Procedure Code: RADCXR Modality: DX Procedure: CHEST PA AND LATERAL COMPARISON: 07/12/2023 FINDINGS: Lungs/Pleura: Suboptimal inspiration. No appreciable focal consolidation, pneumothorax or sizable pleural effusion. No significant vascular congestion. Heart/Mediastinum: Within normal limits. Aortic arch calcification. Bones/Soft tissues: Multilevel degenerative changes of the spine and bilateral shoulders, with left total reverse shoulder arthroplasty hardware. RAD/Chest PA and Lateral IMPRESSION: No evidence of acute cardiopulmonary disease. Reading Location: [id number]
[2025-02-12 18:40] LABS: Prothrombin Time (Protime)PT. 14.0 SECONDS (11.7-14.9)
[2025-02-12 18:41] LABS: Partial Thromboplast Time 27.2 Seconds (24.1-36.2)
[2025-02-12 19:19] LABS: Red Blood Cells-Urine 5-10 SEEN /hpf (0-5)
[2025-02-12 19:20] LABS: Squamous Epithelial Cells - UA 0-5 SEEN /hpf (5-10)
--- NOTE | 2025-02-12 19:21 | PCM.HP.STD ---
HPI - General General Date of Admission: 02/12/25 Date of Service: 02/12/25 Chief Complaint: Fever, altered mental status HPI Narrative The patient is a 79 y/o F w/ PMHx: Parkinson's disease with chart reported history of mild cognitive impairment, HTN, HLD, Former tobacco use, Hx Endometrial cancer/Uterine cancer, kidney stage II per GFR trending who presents to the [facility] ED on 02/12/2025 secondary to onset of worsening altered consciousness notably increased distress and poorly cooperative with underlying dementia complicating presentation with noting that he went to visit her today and she was not as responsive to him with reportedly her normal self around noon/lunchtime with then onset of fever of 101.4 and mild tachycardia prompting patient to be brought in for evaluation. Workup in the ED included T1 100.3, heart rate 86, BP 132/66, respiratory rate 20, 91% on room air however desaturated down to 88% on room air with improvement to 95% on 3 L nasal cannula with most recent repeat vitals Kohr 101.5, heart rate 92, BP 133/66, respiratory rate 23, CBC with WC 19.4, human 14.1, platelet 292 without differential, unremarkable coags, ABG with pH 7.49, O2 saturation 91%, pCO2 29.1, PaO2 54 on room air at that time, BMP with BUN/creatinine 13/0.88, GFR 66, glucose 150, lactic acid 2.7, troponin 15, urinalysis cloudy with specific Ratley 1.020, urine protein 100, ketone 5, occult blood 150, positive nitrite, leukocyte esterase 500, urine RBCs 5-10, urine WC is greater than 100 with 3+ urine bacteria, CT of the brain with no acute intracranial findings with moderate parenchymal volume loss and chronic microangiopathic changes, chest x-ray with no acute cardiopulmonary findings, blood culture x 2 pending per ED, urine culture pending per ED, rapid SARS COVID/influenza/RSV PCR negative. In the ED patient ministered 1 L normal saline, Tylenol 650 mg rectal x 1, azithromycin 500 mg IV x 1, Rocephin 2 g IV x 1. [facility] Medical History De Quervain's tenosynovitis, right Osteoarthritis of carpometacarpal joint of right thumb Parkinson disease Hypertension Carpal tunnel syndrome High cholesterol History of tobacco use Encounter for screening for malignant neoplasm of lung in former smoker who quit in past 15 years with 30 pack year history or greater Endometrial cancer Migraines Uterine cancer Home Medications ?Medication ?Instructions ?Recorded ?Last Taken ?Type carbidopa 25 mg-levodopa 100 mg 2 tab PO TID parkinsons 11/22/21 Unknown History tablet acetaminophen 500 mg tablet 1,000 mg (2 x 500 mg) PO Q6H PRN 11/29/21 Unknown Rx PRN Pain Score 1-10 #0 tabs cholecalciferol (vitamin D3) 50 50 mcg PO DAILY 03/16/22 Unknown History mcg (2,000 unit) capsule (D3-2000) atorvastatin 20 mg tablet 20 mg PO QHS HYPERLIPIDEMIA 01/27/24 Unknown History bisacodyl 10 mg rectal suppository 10 mg NH DAILY PRN constipation 12/17/24 Unknown History dextromethorphan-guaifenesin 10 10 ml PO Q4H PRN cough 12/17/24 Unknown History mg-100 mg/5 mL oral syrup (Chest Congestion Relief DM) loperamide 2 mg tablet (Diamode) 2 mg PO Q6H PRN loose stool 12/17/24 Unknown History magnesium hydroxide 400 mg/5 mL 30 ml PO DAILY PRN stomach upset 12/17/24 Unknown History oral suspension (Milk of Magnesia) mineral oil 118 ml NH DAILY PRN constipation 12/17/24 Unknown History ondansetron HCl 4 mg tablet 4 mg PO Q8H PRN nausea and vomiting 12/17/24 Unknown History sodium chloride 0.65 % nasal spray 2 spray intranasal PRN nasal 12/17/24 Unknown History aerosol (Deep Sea Nasal) congestion acetaminophen 325 mg tablet (Pain 650 mg PO Q4H PRN fever or pain 02/12/25 Unknown History Relief (acetaminophen)) darifenacin 7.5 mg tablet,extended 7.5 mg PO DAILY overactive bladder 02/12/25 Unknown History release 24 hr rivastigmine tartrate 1.5 mg 1.5 mg PO BID 02/12/25 Unknown History capsule Allergy/AdvReac Type Severity Reaction Status Date / Time No Known Allergies Allergy Verified 02/12/25 16:58 Family History Mother CVA (cerebral vascular accident) Hypertension Arthritis Heart disease Father Cancer Skin cancer Sister CVA (cerebral vascular accident) Hypertension Brother Hypertension CVA (cerebral vascular accident) Surgical History History of left shoulder replacement History of hip surgery History of left hip replacement H/O: hysterectomy Social History household members: spouse housing: assisted Smoking Status: Former smoker quit date: 01/02/15 pack-years: 40 Tobacco: How many years used: 40 Electronic Cigarette Use: not used second hand exposure: Yes quit status: has quit before alcohol intake: never what type of physical activity do you participate in: walking and other details: golf do you feel safe at home: Yes ROS Review of Systems ROS Unobtainable: due to encephalopathy and due to mental condition Vital Signs Vital Signs Vital Signs: 02/12/25 16:54 02/12/25 16:58 02/12/25 17:05 Temperature 100.3 F H 100.3 F H Temperature Source Oral Axillary Pulse Rate 86 88 Respiratory Rate 20 H 20 H Blood Pressure 132/66 H 129/69 H Blood Pressure Mean 88 89 Pulse Ox 91 89 88 Oxygen Delivery Method Room Air Room Air Room Air Oxygen Flow Rate (L/min) 02/12/25 17:05 02/12/25 17:10 02/12/25 17:15 Temperature Temperature Source Pulse Rate 99 89 Respiratory Rate 14 23 H Blood Pressure 118/60 Blood Pressure Mean 77 Pulse Ox 91 92 93 Oxygen Delivery Method Nasal Cannula Oxygen Flow Rate (L/min) 2 02/12/25 17:25 02/12/25 17:30 02/12/25 17:45 Temperature Temperature Source Pulse Rate 85 84 Respiratory Rate 23 H 23 H Blood Pressure 125/60 H 134/64 H Blood Pressure Mean 78 84 Pulse Ox 95 93 94 Oxygen Delivery Method Nasal Cannula Oxygen Flow Rate (L/min) 2 02/12/25 17:58 02/12/25 18:00 02/12/25 18:00 Temperature 101.5 F H 101.5 F H 101.5 F H Temperature Source Core Core Core Pulse Rate 92 92 92 Respiratory Rate 23 H 23 H Blood Pressure 133/66 H 133/66 H 133/66 H Blood Pressure Mean 88 83 88 Pulse Ox 95 95 95 Oxygen Delivery Method Nasal Cannula Nasal Cannula Oxygen Flow Rate (L/min) 02/12/25 18:47 02/12/25 18:48 Temperature Temperature Source Pulse Rate Respiratory Rate Blood Pressure Blood Pressure Mean Pulse Ox 79 95 Oxygen Delivery Method Nasal Cannula Nasal Cannula Oxygen Flow Rate (L/min) 2 3 Weight Weight: 130 lb 8.218 oz Body Mass Index (BMI) 24.6 Physical Exam Narrative Physical Examination: General: Patient very lethargic, does awaken but not alert, not oriented, not able to follow commands, laying in ED bed, no acute distress. Skin: Normal color, normal turgor, no icterus, no cyanosis except occasional stage ecchymoses, abrasion. HEENT: AT/NC, EOM unable to be assessed well given encephalopathic presentation, PERRLA, dry MM, no carotid bruits or JVD noted. Lungs: Diminished, greater bases, no evidence of any distress, no markedly appreciated rales, ronchi or wheezing. Heart: Regular rate and rhythm; no gallop, rub audible. Abdomen: Soft, no grimacing with palpation, no suprapubic discomfort with palpation elicited, distant BS, no obvious distention or HSM. Extremities: No cyanosis, no clubbing, no significant distal edema. Neurological: Patient very lethargic, does awaken but not alert, not oriented, not able to follow commands, laying in ED bed, no acute distress, cognitive function not baseline intact; pupils equally reactive to light and accommodation, cranial nerves difficult to assess given encephalopathy, spontaneously moving extremities, strength severely globally creased secondary to acute presentation complicated by underlying morbidities. Psychiatric: Affect appears flat, lethargic, no acute evidence of depressive or anxiety feelings. Results Lab / Micro Data 02/12/25 17:30 02/12/25 17:30 Labs: Laboratory Results - last 24 hr 02/12/25 17:30: WBC 19.4 H, RBC 4.68, Hgb 14.1, Hct 43.1, MCV 92.1, MCH 30.1, MCHC 32.7, RDW Std Deviation 45.2 H, RDW Coeff of Annalise 13.4, Plt Count 292, MPV 9.7, Neut % (Auto) Not Reportable, PT 14.0, INR 1.1, APTT 27.2, Sodium 137, Potassium 3.4, Chloride 102, Carbon Dioxide 22.0, Anion Gap 13, BUN 13, Creatinine 0.88, Estim Creat Clear Calc 42.85 L, Est GFR (MDRD) Non-Af 66, BUN/Creatinine Ratio 15.2, Glucose 150 H, Lactic Acid 2.7 H*, Calcium 9.5, Troponin T High Sens 15 H 02/12/25 17:50: Urine Color Yellow, Urine Clarity Cloudy, Urine pH 6.0, Ur Specific [place] 1.020, Urine Protein 100 H, Urine Glucose (UA) Normal, Urine Ketones 5 H, Urine Occult Blood 150 H, Urine Nitrite Positive H, Urine Bilirubin Negative, Urine Urobilinogen Normal, Ur Leukocyte Esterase 500 H, Urine RBC 5-10 SEEN, Urine WBC >100 SEEN, Ur Squamous Epith Cells 0-5 SEEN, Urine Bacteria 3+, Urine Mucus 0 SEEN Micro: Microbiology 02/12/25 17:30 Mucosa - Nose SARS-CoV-2, Influenza & RSV (PCR) - Final ABG Data ABG results: ABG 02/12/25 17:46 Specimen Type ART Sample Site L Radial pH 7.49 H Bicarbonate Actual 22.4 Total CO2 23 Base Excess -1 O2 Saturation 91 L O2 % 21.0 ABG pCO2 29.1 L ABG pO2 54 L Anselmo Test Positive O2 Delivery Device Room Air Vent Mode Not entered Imaging Radiology Impression Brain CT 02/12/25 18:20 IMPRESSION: No evidence of acute intracranial pathology. Moderate parenchymal volume loss and chronic microangiopathic changes. Reading Location: [facility] Chest X-Ray 02/12/25 18:23 IMPRESSION: No evidence of acute cardiopulmonary disease. Reading Location: [facility] Assessment & Plan Assessment/Plan (1) UTI (urinary tract infection): PLAN: Plan The patient is a 79 y/o F w/ PMHx: Parkinson's disease with chart reported history of mild cognitive impairment, HTN, HLD, Former tobacco use, Hx Endometrial cancer/Uterine cancer, kidney stage II per GFR trending who presents to the [facility] ED on 02/12/2025 secondary to onset of worsening altered consciousness notably increased distress and poorly cooperative with underlying dementia complicating presentation with noting that he went to visit her today and she was not as responsive to him with reportedly her normal self around noon/lunchtime with then onset of fever of 101.4 and mild tachycardia prompting patient to be brought in for evaluation. #1. Acute Sepsis (mild lactic acidosis, noted source, febrile, tachypneic, hypoxic requiring oxygen supplementation, encephalopathic) secondary to Acute Encephalopathy secondary to Acute Complicated Urinary Tract Infection and Questionable RLL PNA (noted normal per radiology but concern per ED physician): Will admit to PCU, UA upon ED evaluation remarkable, pending UCx, will continue IVFs, monitor I/Os, continue IV Rocephin as well as IV azithromycin given dual concern w/ transition as able pending sensitivities and speciation. Encourage HOB, IS parameters w/ pending sputum cultures, full respiratory viral panel and urine antigens. Bld cx x 2 obtained in the ED. PT/OT/case management consult for discharge planning. #2. Hyperglycemia, mild, possible stress response: Admission glucose 150, possibly stress response however be cautious will attain human A1c. #3. Chronic Kidney Disease Stage II per GFR trending: Admission BUN/Cr 13/0.88, GFR 66, baseline renal function primarily 0.8-0.9, repeat BMP in AM. #4. Parkinson's disease, unclear extent with chart reported history of mild cognitive impairment: Complicates presentation, maintain on fall precautions, will continue PT/OT/case management consultation for discharge planning, continue rivastigmine, Sinemet home regimen. #5. History endometrial cancer/uterine cancer: Status post hysterectomy, consider admission, encourage continued follow-up as previously arranged. #6. Hypertension: Noted in history, BP not markedly elevated in the ED, per current list does not appear to be on regimen, continue to monitor and add regimen if appropriate, as needed IV hydralazine in the interim. #7. Hyperlipidemia: Will continue patient home statin therapy. #8. Former tobacco use: Encourage continued tobacco cessation. #9. DVT prophylaxis: Lovenox. #10. CODE status: Patient HCPOA is her who is present for discussions and living will is currently in place. Discussed CODE status at length including difference between FULL code, DNR-CCA and DNR-CC status. Following discussions about the differences in these status, requested DNR-CCA, no intubation. Examples were given and no intubation status was also confirmed. Advanced Care Planning Face to Face Time: 16 minutes. Charges/Coding Visit Charges Inpatient E&M: 75853 Init Hosp L3 Procedures Hospitalists Procedures: 65302 Advncd Care Plan 30 Min
[2025-02-12] MEDS: Ceftriaxone 2 GM in 0.9% Normal Saline (50mL MB+) 50 ML IV (19:22)
--- NOTE | 2025-02-12 19:28 | CM.ED ---
Social Work SW met with patients while patient was in imaging. states he had gone to the [facility] to pickle sorter patient for dinner when he noted she was unable to speak to him. talked about the traveling that he and patient used to do and the places they saw. states that patient will be returning to [facility] when she is medically ready. Emotional support provided. Ekta Prajapati, ANTIQUE JEWELRY REPAIRER, HEALTH SERVICE WORKER
[2025-02-12] MEDS: Azithromycin 500 MG in 0.9% Normal Saline (250mL Bag) 250 ML 250 MG IV (20:07)
[2025-02-12 20:24] LABS: Troponin T High Sens 2 HR 16 ng/L (<=14)
--- OUTSIDE RECORDS SUMMARY | 2025-02-12 20:27 | XMS RPT_ITS | CCD ---
Author Organization [facility] Care Team Providers Care Hand Deicer Element Winder Name Role Phone NINASHOLA Unavailable Unavailable NINASHOLA Unavailable Unavailable REYNOLD BETANCOURT Unavailable Unavailable SenaitdorinajacintaJanine E Unavailable Lyssa Blackwood Unavailable Jalen Andrews Unavailable Unavailable Unavailable Unavailable Micheal Betancourt Primary Care Provider [phone] Micheal Betancourt Primary Care Provider [phone] Kelvin Pulliam Attending Provider Dr. Winston Saunders Referring Provider [phone] Micheal Betancourt Referring Provider Dr. Winston Saunders Attending Provider [phone] Micheal Betancourt Primary Care Provider Dr. Micheal Betancourt Referring Provider Dr. Winston Saunders Attending Provider [phone] Andrew Menjivar Attending Provider [phone] MICHEAL BETANCOURT MD Primary Care Physician MICHEAL BETANCOURT Primary Care Unavailable JHON ANDREWS Admitting Unavailable JHON ANDREWS Attending Unavailable JHON ANDREWS Consulting Unavailable JHON ANDREWS Attending Unavailable MICHEAL BETANCOURT Primary Care Unavailable Dr. Micheal Betancourt Primary Care Provider [phone] Micheal Betancourt Referring Provider Dr. Andrew Menjivar Attending Provider [phone] Dr. Kelvin Pulliam Attending Provider ECHO Adams [...] Betancourt Primary Care Provider Yovany GRIFFINN - FACILITY DESIGNER, Rabia Unavailable MD Dmitry Burk Primary Care Provider [phone] MD Dmitry Burk Referring Provider [phone] MD Micheal Dawson Attending Provider Bhargavi HARRINGTON, Dmitry Primary Care Provider MD Dmitry Burk Primary Care Provider MD Dmitry Burk Referring Provider MD Micheal Dawson Attending Provider Bhargavi HARRINGTON, Dmitry Primary Care Provider Dr. Donavan Sandhu Attending Provider JULIET CHANEL Referring Unavailable [facility] Primary Care Unavailable JULIET CHANEL Referring Unavailable [...] Care Unavailable Alexander HARRINGTON, Ryne Busby Unavailable BHARGAVI, CHALON Primary Care Unavailable YANIQUE, JULIET Referring Unavailable YANIQUE, JULIET Attending Unavailable BHARGAVI, CHALON Primary Care Unavailable YANIQUE, JULIET Referring Unavailable YANIQUE, JULIET Attending Unavailable Bhargavi HARRINGTON, Dmitry Primary Care Physician [phone] Demetrio Hemphill MD Attending Physician UnavailDr. John [...] Take by mouth as dir ected. Coenzyme Z39-Tbkhhhtohlkdo (CO Q-10 PLUS PO) (1 source) Coenzyme A05-Lmucgpkcbltqo (CO Q-10 PLUS PO) Take by mouth 0 Active dextromethorphan hydrobromide 2 mg/ml / guaiFENesin 20 mg/ml oral solution (1 source) Uncompetitive W-rqsyuq-U-aspartate Receptor Antagonist, Sigma-1 Agonist Start: 12-18-19 take [...] 31, 2021 2:30pm take 1 tablet by sasha th every six hours as needed ibuprofen [...] RECTAL route one time only. PRN Active [place] 3-6-9 Fatty Acids (OMEGA-3 & OMEGA-6 FISH OIL PO) (1 source) [place] 3-6-9 Fatt y Acids (OMEGA-3 & OMEGA-6 [...] Start: 11-09-2021 take 2 tablets by mo [facility] once daily BALANCE OF NATUARE VITAMIN Active 2 TABLET PO DAILY November 09, 2021 12:00am BALANCE OF NATURE VEGGIES BALANCE OF NATURE FRUITS carboxymethylcellulose 0.01 mg/mg ophthalmic gel (9 sources) Start: 11-29-2021 End: 01-15-2023 Carboxymethylcellulose Sodium (Theratears) 1 % Dropperette,Gel Discontinued 1 NMA EACH EYE Q1H as needed for DRY EYES 0 0 November 29, 2021 12:00am January 15, 2023 5:45pm Coenzyme Q06-Zejlqno E (17 sources) Start: 03-16-2022 End: 05-03-2023 take 1 capsule by mouth once daily Coenzyme D24-Uodlatl E Discontinued 1 CAP PO DAILY March 16, 2022 1:00am May 03, 2023 11:00am Start: 03-16-2022 End: 05-03-2023 take 1 capsule by mouth once daily Coenzyme J72-Ljhexuy E Discontinued 1 CAP PO DAILY March 16, 2022 12:00am May 03, 2023 10:00am Start: 03-16-2022 take 1 capsule by mo uth once daily Coenzyme K93-Yxvcyef E Active 1 CAP PO DAILY March 16, 2022 12:00am Start: 03-16-2022 Coenzyme Q10-V itamin E Active CAP PO March 16, 2022 1:00am Start: 03-16-2022 Coenzyme Q10-V itamin E Active CAP PO March 16, 2022 12:00am Coenzyme J47-Akqcjbl E 100-100 mg-unit capsule (1 source) Start: 03-16-2022 End: 05-03-2023 Coenzyme O74-Tjqbtis E 100-100 mg-unit capsule Discontinued 1 NMA [...] cardiovascular system; Translations: [Atherosclerotic heart disease of [place] coronary artery without angina pectoris] 06-25-2023 Chronic [...] 03-16-2020 Chronic Other aftercare (1 source) Other fpc (current) drug therapy; Translations: [Other watermaster (current) drug therapy] Onset: 01-01-2025 Episodic Other [...] Progressive supranuclear palsy; 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 Imaging Services [address] [place], [place] [address] Brain/Head without Contrast MR#: [id number] Acct: [id number] Name: RAMOS PADRON Rep #: [id number] : 1945 F 79 From: Chris Moncada MD PCP: Dr. Dmitry Burk MD Status: REG ER Study: Brain/Head without Contrast Date of Exam: 12/02 08/26 Exam# [id number] Ordering Dr: John Webb DO PROCEDURE: BRAIN/HEAD [...] ischemic changes and volume loss. Reading Location: [id number] CC: Dr. Dmitry Burk MD; Dr. John Webb DO Quality Assurance Assistant: Signed Normal [facility] Emergency Department Summary on 12-17-2024 Emergency Department Summary [facility] Medical Records Department [address] [place] [address] Emergency Department Summary 12/17/24 MR#: [id number] Acct: [id number] Name: RAMOS PADRON Rep #: [id number] : 1945 79 From: John Webb DO [...] frequently. reports that the staff at the residential found her on the floor. Patient denies any loss of consciousness. states patient's immunizations are up-to-date. Patient does complain of headache and neck pain. Patient is not on any anticoagulants. Patient denies any weakness. Tetanus Immunization: <5 years [facility] Medical History De Quervain's tenosynovitis, right Osteoarthritis [...] bisacodyl 10 mg rectal suppository 10 mg [place] DAILY PRN constipation 12/17/24 Unknown History cephalexin [...] (Milk of Magnesia) mineral oil 118 ml [place] DAILY PRN constipation 1 Unknown History ondansetron [...] Normal Bloo (more content not included)... Normal [facility] Ketones Test strip Ql (U)Ord ered By: John Webb on 12-17-2024 Ketones Ql (U) Negative Negative [facility] Microscopic analysis of urin e for red blood cells (RBC)Ordered By: John Webb on 12-17-2024 Microscopic analysis of urine for red blood cells (RBC) 0-5 SEEN /hpf 0-5 [facility] Mucus LM Ql (Urine sed)Order ed By: John Webb on 12-17-2024 Mucus Ql (Urine sed) 0 SEEN /hpf [facility] Nitrite Test strip Ql (U)Ord ered By: John Webb on 12-17-2024 Nitrite Ql (U) Positive High Negative [facility] Protein Test strip Ql (U)Ord ered By: John Webb on 12-17-2024 Protein Ql (U) Negative Negative [facility] Spine Cervical without Contr ason 12-17-[address] without Contras [facility] [address] [place] [address] Spine Cervical without Contras MR#: [id number] Acct: [id number] Name: RAMOS PADRON Rep #: [id number] : 1945 F 79 From: Gaudencio Joe MD PCP: Dr. Dmitry Burk MD Status: REG ER Study: Spine Cervical without Contras Date of Exam: Exam# [id number] Ordering Dr: John Webb DO PROCEDURE: SPINE [...] Dmitry Burk MD; Dr. John Webb DO Quality Assurance Assistant: Signed Normal [facility] Squamous epithelial cells de tection in urine sediment by light microscopyOrdered By: John Webb on 12-17-2024 Epithelial cells.squamous LM Ql (Urine sed) 0-5 SEEN /hpf 5-10 [facility] Urinalysis, Completeon 12-17 RBC 0-5 SEEN Normal 0-5 [facility] Comment on above: Order Comment: CLEAN CATCH Performed By: #### L 400.0001 ####[facility] [address] [facility] [address] BACTERIA 2+ /hpf Normal None Seen [facility] Comment on above: Order Comment: CLEAN CATCH Performed By: #### L 400.0001 ####[facility] [address] [place], [address] EPI,SQUAMOUS 0-5 SEEN Normal 5-10 [facility] Comment on above: Order Comment: CLEAN CATCH Performed By: #### L 400.0001 ####[facility] [address] [facility] [address] WBC 10-25 SEEN Normal 0-5 [facility] Comment on above: Order Comment: CLEAN CATCH Performed By: #### L 400.0001 ####[facility] [address] [place], [address] Mucus Ql (Urine sed) 0 SEEN Normal [facility] Comment on above: Order Comment: CLEAN CATCH Performed By: #### L 400.0001 ####[facility] [address] [place], [address] Urine clarityOrdered By: Carmina Webb on 12-17-2024 Clarity (U) Sl. Cloudy Clear [facility] Urine color determinationOrd ered By: John Webb on 12-17-2024 Color (U) Yellow Yellow [facility] Urine glucose detectionOrder ed By: John Webb on 12-17-2024 Glucose Ql (U) Normal mg/dl Normal [facility] Urine leukocyte esterase det ection by dipstickOrdered By: John Webb on 12-17-2024 Leukocyte esterase Test strip Ql (U) 500 /ul High Negative [facility] Urine pHOrdered By: John sullivan on 12-17-2024 pH (U) 7.0 [pH] 5.0 - 8.0 [facility] Urine sediment bacteria coun t by microscopy (number/high power field)Ordered By: John Webb on 12-17-2024 Bacteria LM.HPF (Urine sed) [#/Area] 2 /[HPF] None Seen [facility] Urine specific gravity measu rementOrdered By: John Webb on 12-17-2024 Specific gravity (U) [Rel density] 1.010 1.002-1.03 0 [facility] Urine urobilinogen measureme ntOrdered By: John Webb on 12-17-2024 Urobilinogen Ql (U) Normal mg/dl Normal [facility] White blood cell countOrdere d By: John Webb on 12-17-2024 White blood cell count 10-25 SEEN /hpf 0-5 [facility] Anion gap in Serum or Plasma Ordered By: Demetrio Hemphill on 09-08-2024 Anion gap [Moles/Vol] 9 mmol/L - [facility] BUN/creatinine ratioOrdered By: Demetrio Hemphill on 09-08-2024 Urea nitrogen/Creatinine [Mass ratio] 12.3 mg/mg 12-21 [facility] Basic Metabolic Profile (BMP )on 09-08-2024 BUN/CRE 12.3 RATIO Normal 12-21 [facility] Comment on above: Order Comment: 119.2 Performed By: #### L 100.0500, L500.2500, L506.1001 ####[facility] [address] [place], [address] Calcium [Mass/Vol] 8.8 mg/dL Normal 7.6-11.0 [facility] Comment on above: Order Comment: 119.2 Performed By: #### L 100.0500, L500.2500, L506.1001 ####[facility] [address] [place], [address] Chloride [Moles/Vol] 106 mmol/L Normal 98-108 [facility] Comment on above: Order Comment: 119.2 Performed By: #### L 100.0500, L500.2500, L506.1001 ####[facility] [address] [place], [address] CO2 [Moles/Vol] 23.5 mmol/L Normal 21.0-32.0 [facility] Comment on above: Order Comment: 119.2 Performed By: #### L 100.0500, L500.2500, L506.1001 ####[facility] [address] [place], [address] Creatinine [Mass/Vol] 0.93 mg/dL Normal 0.70-1.20 [facility] Comment on above: Order Comment: 119.2 Performed By: #### L 100.0500, L500.2500, L506.1001 ####[facility] [address] [place], [address] GAP 9 Normal 5-15 [facility] Comment on above: Order Comment: 119.2 Performed By: #### L 100.0500, L500.2500, L506.1001 ####[facility] [address] [place], [address] GFR/1.73 sq M.predicted among non-blacks MDRD (S/P/Bld) [Vol rate/Area] 62 mL/min/{1.73_m2} Normal >60 [facility] Comment on above: Order Comment: 119.2 Result Comment: mL/m in/1.73m2 CKD-EPI Creatinine Equation (2020) Performed By: #### L 100.0500, L500.2500, L506.1001 ####[facility] [address] [place], [address] Glucose [Mass/Vol] 82 mg/dL Normal 70-99 [facility] Comment on above: Order Comment: 119.2 Performed By: #### L 100.0500, L500.2500, L506.1001 ####[facility] [address] [place], [address] Potassium [Moles/Vol] 3.8 mmol/L Normal 3.3-5.1 [facility] Comment on above: Order Comment: 119.2 Performed By: #### L 100.0500, L500.2500, L506.1001 ####[facility] [address] [place], [address] Sodium [Moles/Vol] 139 mmol/L Normal 133-145 [facility] Comment on above: Order Comment: 119.2 Performed By: #### L 100.0500, L500.2500, L506.1001 ####[facility] [address] [place], [address] Urea nitrogen [Mass/Vol] 12 mg/dL Normal 4-19 [facility] Comment on above: Order Comment: 119.2 Performed By: #### L 100.0500, L500.2500, L506.1001 ####[facility] [address] [place], [address] CBC-Complete Blood Cnt No Di ffon 09-08-2024 Erythrocyte distribution width (RBC) [Ratio] 14.3 % Normal 11.6-14.6 [facility] Comment on above: Order Comment: 119.2 Performed By: #### L 100.0500, L500.2500, L506.1001 ####[facility] [address] [place], [address] Hematocrit (Bld) [Volume fraction] 38.9 % Normal 37-47 [facility] Comment on above: Order Comment: 119.2 Performed By: #### L 100.0500, L500.2500, L506.1001 ####[facility] [address] [place], [address] Hemoglobin (Bld) [Mass/Vol] 12.8 g/dL Normal 12.0-15.0 [facility] Comment on above: Order Comment: 119.2 Performed By: #### L 100.0500, L500.2500, L506.1001 ####[facility] [address] [place], [address] MCH (RBC) [Entitic mass] 30.5 pg Normal 27.0-32.0 [facility] Comment on above: Order Comment: 119.2 Performed By: #### L 100.0500, L500.2500, L506.1001 ####[facility] [address] [place], [address] MCHC (RBC) [Mass/Vol] 32.9 g/dL Normal 32-36 [facility] Comment on above: Order Comment: 119.2 Performed By: #### L 100.0500, L500.2500, L506.1001 ####[facility] [address] [place], [address] MCV (RBC) [Entitic vol] 92.8 fL Normal 81-99 [facility] Comment on above: Order Comment: 119.2 Performed By: #### L 100.0500, L500.2500, L506.1001 ####[facility] [address] [place], [address] Platelet mean volume (Bld) [Entitic vol] 9.3 fL Normal 6.2-12.0 [facility] Comment on above: Order Comment: 119.2 Performed By: #### L 100.0500, L500.2500, L506.1001 ####[facility] [address] [place], [address] Platelets (Bld) [#/Vol] 289 10*3/uL Normal 150-450 [facility] Comment on above: Order Comment: 119.2 Performed By: #### L 100.0500, L500.2500, L506.1001 ####[facility] [address] [place], [address] RBC (Bld) [#/Vol] 4.19 10*6/uL Low 4.2-5.4 [facility] Comment on above: Order Comment: 119.2 Performed By: #### L 100.0500, L500.2500, L506.1001 ####[facility] [address] [place], [address] RDW SD 48.6 fl High 35.1-43.9 [facility] Comment on above: Order Comment: 119.2 Performed By: #### L 100.0500, L500.2500, L506.1001 ####[facility] [address] [place], [address] WBC (Bld) [#/Vol] 6.4 10*3/uL Normal 4.4-11.0 [facility] Comment on above: Order Comment: 119.2 Performed By: #### L 100.0500, L500.2500, L506.1001 ####[facility] [address] [place], [address] Carbon dioxide, total [Moles /volume] in Central venous bloodOrdered By: Demetrio Hemphill on 09-08-2024 CO2 [Moles/Vol] 23.5 mmol/L 21.0-32.0 [facility] Chloride assayOrdered By: Jaimee Hemphill on 09-08-2024 Chloride [Moles/Vol] 106 mmol/L 98-108 [facility] Erythrocyte distribution wid th ratioOrdered By: Demetrio Hemphill on 09-08-2024 Erythrocyte distribution width (RBC) [Ratio] 14.3 % 11.6-14.6 [facility] Erythrocyte distribution wid th standard deviationOrdered By: Demetrio Hemphill on 09-08-2024 Erythrocyte distribution width (RBC) [Ratio] 48.6 fl High 35.1-43.9 [facility] Glomerular filtration rate ( GFR) estimation/1.73 sq m using serum, plasma, or whole bOrdered By: Demetrio Hemphill on 09-08-2024 GFR/1.73 sq M.predicted among non-blacks MDRD (S/P/Bld) [Vol rate/Area] 62 mL/min/{1.73_m2} >60 [facility] Comment on above: mL/min/1.73m2 CKD-EP I Creatinine Equation (2020) Hematocrit Auto (Bld) [Volum e fraction]Ordered By: Demetrio Hemphill on 09-08-2024 Hematocrit (Bld) [Volume fraction] 38.9 % 37-47 [facility] Hemoglobin measurementOrdere d By: Demetrio Hemphill on 09-08-2024 Hemoglobin (Bld) [Mass/Vol] 12.8 g/dL 12.0-15.0 [facility] MCV (mean corpuscular volume ) determinationOrdered By: Demetrio Hemphill on 09-08-2024 MCV (RBC) [Entitic vol] 92.8 fL 81-99 [facility] Mean corpuscular hemoglobin (MCH) determinationOrdered By: Demetrio Hemphill on 09-08-2024 MCH (RBC) [Entitic mass] 30.5 pg 27.0-32.0 [facility] Mean corpuscular hemoglobin concentration (MCHC) determinationOrdered By: Demetrio Hemphill on 09-08-2024 MCHC (RBC) [Mass/Vol] 32.9 g/dL 32-36 [facility] Mean platelet volume determi nationOrdered By: Demetrio Hemphill on 09-08-2024 Platelet mean volume (Bld) [Entitic vol] 9.3 fL 6.2-12.0 [facility] Platelet countOrdered By: Jaimee Hemphill on 09-08-2024 Platelets (Bld) [#/Vol] 289 10*3/uL 150-450 [facility] Potassium measurement (mass/ volume)Ordered By: Demetrio Hemphill on 09-08-2024 Potassium (Unsp spec) [Mass/Vol] 3.8 mmol/L 3.3-5.1 [facility] RBC Auto (Bld) [#/Vol]Ordere d By: Demetrio Hemphill on 09-08-2024 RBC (Bld) [#/Vol] 4.19 10*6/uL Low 4.2-5.4 [facility] Serum creatinine measurement (mass/volume)Ordered By: Demetrio Hemphill on 09-08-2024 Creatinine [Mass/Vol] 0.93 mg/dL 0.70-1.20 [facility] Serum glucose measurement (m ass/volume)Ordered By: Demetrio Hemphill on 09-08-2024 Glucose [Mass/Vol] 82 mg/dL 70-99 [facility] Serum or plasma calcium anat urement (mass/volume)Ordered By: Demetrio Hemphill on 09-08-2024 Calcium [Mass/Vol] 8.8 mg/dL 7.6-11.0 [facility] Serum or plasma urea nitroge n measurement (mass/volume)Ordered By: Demetrio Hemphill on 09-08-2024 Urea nitrogen [Mass/Vol] 12 mg/dL 4-19 [facility] Sodium levelOrdered By: Demetrio Hemphill on 09-08-2024 Sodium [Moles/Vol] 139 mmol/L 133-145 [facility] Vitamin D,25 Hydroxyon 09-08 Vitamin D 25-OH 44.3 ng/mL Normal 30-100 [facility] Comment on above: Order Comment: 119.2 Result Comment: Deborah min D Status Deficiency: <20 ng/mL (50nmol/L) Insufficiency: 20-30 ng/mL (50-75 nmol/L) Sufficiency: 30-100 ng/mL (75-250 nmol/L) Toxicity: >100 ng/mL (>250 nmol/L) Performed By: #### L 100.0500, L500.2500, L506.1001 ####[facility] [address] [place], [address] White blood cell (WBC) count Ordered By: Demetrio Hemphill on 09-08-2024 WBC (Bld) [#/Vol] 6.4 10*3/uL 4[facility]4-11.0 [facility] (NRMDN[facility] -- RAMOS PADRON ([id number]) 1945 F Date Time Provider Department 06/18/24 [...] or you can send a message through [employer]. You can also now schedule and select appointments through [employer]. MD Yanique Phillips Kristin, MD 06/18/2024 12:37 PM Signed [facility] - FOLLOW UP EVALUATION Primary Movement Disorders Neurologist: Juliet Chanel MD Primary Movement Disorders NEISHA: Not yet assigned Recording using [employer] software for draft documentation of the visit was discussed with the patient/authorized senior sales representative; all questions welcomed and answered. Patient/authorized senior sales representative agreed to proceed MD Jose Miguel Oakes [place] [address] [facility] [address] Dear Dmitry Burk MD: I had the [...] she she moved to [address] in [place] and will remain there indefinitely. Her reports [...] and swallowing (more content not included)... Normal [facility] 36on 04-28-2024 36 Called back to see i f pt is doing better and would like to reschedule her canceled appointment. 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 Normal [facility] 36 ----- Message from Leanne Rueda sent [...] requested call back in 30 days. Normal 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 Micheal kumar MD Age/Sex: 78/F Location: [facility] [place] Status: Signed Intake Vital Signs 01/24/24 15:28 [...] by me, Dr. Micheal Dawson MD 03/09/24 7452. Part of today???s visit was documented by [...] bit weak, no drop arm sign 03/09/24 0959 Date Micheal Dawson MD [facility] Signature: Date (if applicable) CC: Normal [facility] Basic Metabolic Profile (BMP )on 02-07-2024 BUN/CRE 21.9 RATIO High 10-20 [facility] Comment on above: Order Comment: 207.1 Performed By: #### L 100.0500, L501.5200, L500.2500 ####[facility] [address] [place], [address] CA,Total 8.8 mg/dL Normal 8.5-10.1 [facility] Comment on above: Order Comment: 207.1 Performed By: #### L 100.0500, L501.5200, L500.2500 ####[facility] [address] [place], [address] Chloride [Moles/Vol] 110 mmol/L High 98-107 [facility] Comment on above: Order Comment: 207.1 Performed By: #### L 100.0500, L501.5200, L500.2500 ####[facility] [address] [place], [address] CO2 [Moles/Vol] 26.0 mmol/L Normal 21.0-32.0 [facility] Comment on above: Order Comment: 207.1 Performed By: #### L 100.0500, L501.5200, L500.2500 ####[facility] [address] [place], [address] Creatinine [Mass/Vol] 0.87 mg/dL Normal 0.55-1.02 [facility] Comment on above: Order Comment: 207.1 Result Comment: The validity of the calculated GFR GFRAA in patients over 70 years has not been determined. Clinical correlation is essential. Performed By: #### L 100.0500, L501.5200, L500.2500 ####[facility] [address] [place], [address] EST GFR - AA 81 mL/min Normal >60 [facility] Comment on above: Order Comment: 207.1 Result Comment: Afri can Serbian GFR Calc Performed By: #### L 100.0500, L501.5200, L500.2500 ####[facility] [address] [place], [address] GAP 6 Normal 5-15 [facility] Comment on above: Order Comment: 207.1 Performed By: #### L 100.0500, L501.5200, L500.2500 ####[facility] [address] [place], [address] GFR/1.73 sq M.predicted among non-blacks MDRD (S/P/Bld) [Vol rate/Area] 67 mL/min/{1.73_m2} Normal >60 [facility] Comment on above: Order Comment: 207.1 Result Comment: Non- GFR Calc Performed By: #### L 100.0500, L501.5200, L500.2500 ####[facility] [address] [place], [address] Glucose [Mass/Vol] 104 mg/dL Normal 74-106 [facility] Comment on above: Order Comment: 207.1 Result Comment: Fast ing Glucose result from 100 to 125 mg/dL suggests IMPAIRED HOMEOSTASIS per A.D.A. criteria. Performed By: #### L 100.0500, L501.5200, L500.2500 ####[facility] [address] [place], [address] Potassium [Moles/Vol] 3.9 mmol/L Normal 3.5-5.1 [facility] Comment on above: Order Comment: 207.1 Performed By: #### L 100.0500, L501.5200, L500.2500 ####[facility] [address] [place], [address] Sodium [Moles/Vol] 142 mmol/L Normal 136-145 [facility] Comment on above: Order Comment: 207.1 Performed By: #### L 100.0500, L501.5200, L500.2500 ####[facility] [address] [place], [address] Urea nitrogen [Mass/Vol] 19 mg/dL High 7-18 [facility] Comment on above: Order Comment: 207.1 Performed By: #### L 100.0500, L501.5200, L500.2500 ####[facility] [address] [place], [address] CBC-Complete Blood Cnt No Di ffon 02-07-2024 Erythrocyte distribution width (RBC) [Ratio] 13.4 % Normal 11.6-14.6 [facility] Comment on above: Order Comment: 207.1 Performed By: #### L 100.0500, L501.5200, L500.2500 ####[facility] [address] [place], [address] Hematocrit (Bld) [Volume fraction] 44.3 % Normal 37-47 [facility] Comment on above: Order Comment: 207.1 Performed By: #### L 100.0500, L501.5200, L500.2500 ####[facility] [address] [place], [address] Hemoglobin (Bld) [Mass/Vol] 14.3 g/dL Normal 12.0-15.0 [facility] Comment on above: Order Comment: 207.1 Performed By: #### L 100.0500, L501.5200, L500.2500 ####[facility] [address] [place], [address] MCH (RBC) [Entitic mass] 30.4 pg Normal 27.0-32.0 [facility] Comment on above: Order Comment: 207.1 Performed By: #### L 100.0500, L501.5200, L500.2500 ####[facility] [address] [place], [address] MCHC (RBC) [Mass/Vol] 32.3 g/dL Normal 32-36 [facility] Comment on above: Order Comment: 207.1 Performed By: #### L 100.0500, L501.5200, L500.2500 ####[facility] [address] [place], [address] MCV (RBC) [Entitic vol] 94.3 fL Normal 81-99 [facility] Comment on above: Order Comment: 207.1 Performed By: #### L 100.0500, L501.5200, L500.2500 ####[facility] [address] [place], [address] Platelet mean volume (Bld) [Entitic vol] 9.5 fL Normal 6.2-12.0 [facility] Comment on above: Order Comment: 207.1 Performed By: #### L 100.0500, L501.5200, L500.2500 ####[facility] [address] [place], [address] Platelets (Bld) [#/Vol] 409 10*3/uL Normal 150-450 [facility] Comment on above: Order Comment: 207.1 Performed By: #### L 100.0500, L501.5200, L500.2500 ####[facility] [address] [place], [address] RBC (Bld) [#/Vol] 4.70 10*6/uL Normal 4.2-5.4 [facility] Comment on above: Order Comment: 207.1 Performed By: #### L 100.0500, L501.5200, L500.2500 ####[facility] [address] [place], [address] RDW SD 46.8 fl High 35.1-43.9 [facility] Comment on above: Order Comment: 207.1 Performed By: #### L 100.0500, L501.5200, L500.2500 ####[facility] [address] [place], [address] WBC (Bld) [#/Vol] 8.2 10*3/uL Normal 4.4-11.0 [facility] Comment on above: Order Comment: 207.1 Performed By: #### L 100.0500, L501.5200, L500.2500 ####[facility] [address] [place], [address] Magnesiumon 02-07-2024 Magnesium [Mass/Vol] 2.3 mg/dL Normal 1.6-2.6 [facility] Comment on above: Order Comment: 207.1 Performed By: #### L 100.0500, L501.5200, L500.2500 ####[facility] [address] [place], [address] Basic Metabolic Profile (BMP )on 01-31-2024 BUN/CRE 17.2 RATIO Normal 10-20 [facility] Comment on above: Order Comment: 207-1 Performed By: #### L 500.2500, L501.5200, L100.0500 ####[facility] [address] [place], [address] CA,Total 8.8 mg/dL Normal 8.5-10.1 [facility] Comment on above: Order Comment: 207-1 Performed By: #### L 500.2500, L501.5200, L100.0500 ####[facility] [address] [place], [address] Chloride [Moles/Vol] 109 mmol/L High 98-107 [facility] Comment on above: Order Comment: 207-1 Performed By: #### L 500.2500, L501.5200, L100.0500 ####[facility] [address] [place], [address] CO2 [Moles/Vol] 25.0 mmol/L Normal 21.0-32.0 [facility] Comment on above: Order Comment: 207-1 Performed By: #### L 500.2500, L501.5200, L100.0500 ####[facility] [address] [place], [address] Creatinine [Mass/Vol] 0.70 mg/dL Normal 0.55-1.02 [facility] Comment on above: Order Comment: Result Comment: The validity of the calculated GFR GFRAA in patients over 70 years has not been determined. Clinical correlation is essential. Performed By: #### L 500.2500, L501.5200, L100.0500 ####[facility] [address] [place], [address] EST GFR - AA 104 mL/min Normal >60 [facility] Comment on above: Order Comment: Result Comment: Afri can Serbian GFR Calc Performed By: #### L 500.2500, L501.5200, L100.0500 ####[facility] [address] [place], [address] GAP 7 Normal 5-15 [facility] Comment on above: Order Comment: Performed By: #### L 500.2500, L501.5200, L100.0500 ####[facility] [address] [place], [address] GFR/1.73 sq M.predicted among non-blacks MDRD (S/P/Bld) [Vol rate/Area] 86 mL/min/{1.73_m2} Normal >60 [facility] Comment on above: Order Comment: Result Comment: Non- GFR Calc Performed By: #### L 500.2500, L501.5200, L100.0500 ####[facility] [address] [place], [address] Glucose [Mass/Vol] 103 mg/dL Normal 74-106 [facility] Comment on above: Order Comment: Result Comment: Fast ing Glucose result from 100 to 125 mg/dL suggests IMPAIRED HOMEOSTASIS per A.D.A. criteria. Performed By: #### L 500.2500, L501.5200, L100.0500 ####[facility] [address] [place], [address] Potassium [Moles/Vol] 3.3 mmol/L Low 3.5-5.1 [facility] Comment on above: Order Comment: - Performed By: #### L 500.2500, L501.5200, L100.0500 ####[facility] [address] [place], [address] Sodium [Moles/Vol] 141 mmol/L Normal 136-145 [facility] Comment on above: Order Comment: - Performed By: #### L 500.2500, L501.5200, L100.0500 ####[facility] [address] [place], [address] Urea nitrogen [Mass/Vol] 12 mg/dL Normal 7-18 [facility] Comment on above: Order Comment: - Performed By: #### L 500.2500, L501.5200, L100.0500 ####[facility] [address] [place], [address] CBC-Complete Blood Cnt No Di ffon 01-31-2024 Erythrocyte distribution width (RBC) [Ratio] 13.2 % Normal 11.6-14.6 [facility] Comment on above: Order Comment: - Performed By: #### L 500.2500, L501.5200, L100.0500 ####[facility] [address] [place], [address] Hematocrit (Bld) [Volume fraction] 45.1 % Normal 37-47 [facility] Comment on above: Order Comment: - Performed By: #### L 500.2500, L501.5200, L100.0500 ####[facility] [address] [place], [address] Hemoglobin (Bld) [Mass/Vol] 14.4 g/dL Normal 12.0-15.0 [facility] Comment on above: Order Comment: - Performed By: #### L 500.2500, L501.5200, L100.0500 ####[facility] [address] [place], [address] MCH (RBC) [Entitic mass] 29.9 pg Normal 27.0-32.0 [facility] Comment on above: Order Comment: - Performed By: #### L 500.2500, L501.5200, L100.0500 ####[facility] [address] [place], [address] MCHC (RBC) [Mass/Vol] 31.9 g/dL Low 32-36 [facility] Comment on above: Order Comment: - Performed By: #### L 500.2500, L501.5200, L100.0500 ####[facility] [address] [place], [address] MCV (RBC) [Entitic vol] 93.6 fL Normal 81-99 [facility] Comment on above: Order Comment: - Performed By: #### L 500.2500, L501.5200, L100.0500 ####[facility] [address] [place], [address] Platelet mean volume (Bld) [Entitic vol] 9.4 fL Normal 6.2-12.0 [facility] Comment on above: Order Comment: - Performed By: #### L 500.2500, L501.5200, L100.0500 ####[facility] [address] [place], [address] Platelets (Bld) [#/Vol] 388 10*3/uL Normal 150-450 [facility] Comment on above: Order Comment: - Performed By: #### L 500.2500, L501.5200, L100.0500 ####[facility] [address] [place], [address] RBC (Bld) [#/Vol] 4.82 10*6/uL Normal 4.2-5.4 [facility] Comment on above: Order Comment: - Performed By: #### L 500.2500, L501.5200, L100.0500 ####[facility] [address] [place], [address] RDW SD 45.2 fl High 35.1-43.9 [facility] Comment on above: Order Comment: - Performed By: #### L 500.2500, L501.5200, L100.0500 ####[facility] [address] [place], [address] WBC (Bld) [#/Vol] 7.4 10*3/uL Normal 4.4-11.0 [facility] Comment on above: Order Comment: - Performed By: #### L 500.2500, L501.5200, L100.0500 ####[facility] [address] [place], [address] Magnesiumon 01-31-2024 Magnesium [Mass/Vol] 2.2 mg/dL Normal 1.6-2.6 [facility] Comment on above: Order Comment: - Performed By: #### L 500.2500, L501.5200, L100.0500 ####[facility] [address] [place], [address] Orthopedic Visit Reporton Orthopedic Visit Report [facility] [address] [place] [address] [address] [place] [address] OFFICE VISIT Date of Service: 01/27/24 MR#: [id number] Acct: [id number] Name: RAMOS PADRON Rep #: [id number] : 1945 Provider: Dr. Micheal kumar MD Age/Sex: 78/F Location: [facility] [place] Status: Signed Intake Vital Signs 01/22/24 12:14 [...] by me, Dr. Micheal Dawson MD 01/27/24 0801. Part of today???s visit was documented by [ ], acting as scribe. RAMOS PADRON is a 78 year old F here today for R shoulder dislocation and closed reduction. Patient had a fall about 5 days ago last Saturday. Having multiple falls. Patient is right-hand dominant been in a sling since then. They are in a senior care. per ED Patient presents with right shoulder [...] Patient denies any other injuries. Supplemental Info [facility] Imaging Services [address] [place] [address] Humerus min 2 Views MR#: [id number] Acct: [id number] Name: RAMOS PADRON Rep #: [id number] : 1945 F 78 From: Max Olsen MD PCP: Dr. Dmitry Burk MD Status: REG ER Study: Humerus min 2 Views Date of Exam: 01/22/24 Exam# [id number] Ordering Dr: Lázaro River DO [id number] STUDY: X-RAY - RIGHT HUMERUS REASON FOR [...] Reading Loc (more content not included)... Normal [facility] Emergency Department Summary on 01-24-2024 Emergency Department Summary [facility] Medical Records Department [address] [place] [address] Emergency Department Summary 01/24/24 MR#: [id number] Acct: [id number] Name: RAMOS PADRON Rep #: [id number] : 1945 78 From: John Webb DO [...] for Parasthesia, Weakness or Loss of Funtion [facility] Medical History De Quervain's tenosynovitis, right Osteoarthritis [...] Radial pulses (more content not included)... Normal [facility] Humerus min 2 Viewson 2023 Humerus min 2 Views [facility] [address] [place], [place] [address] Humerus min 2 Views MR#: [id number] Acct: [id number] Name: RAMOS PADRON Rep #: [id number] : 1945 F 78 From: Fareed Lovett MD PCP: Dr. Dmitry Burk MD Status: REG ER Study: Humerus min 2 Views Date of Exam: 01/24/24 Exam# [id number] Ordering Dr: John Webb DO [id number] EXAM: XR RIGHT HUMERUS, 2 OR MORE [...] Dmitry Burk MD; Dr. John Webb DO Quality Assurance Assistant: Signed Normal [facility] Basic Metabolic Profile (BMP )on 01-23-2024 BUN/CRE 21.9 RATIO High 10-20 [facility] Comment on above: Order Comment: . Performed By: #### L 501.9520, L501.5200, L500.4100, L506.1000, L100.0100, L503.0105, L500.2500, L501.9985 #### [facility] [address] [place], [address] CA,Total 9.0 mg/dL Normal 8.5-10.1 [facility] Comment on above: Order Comment: . Performed By: #### L 501.9520, L501.5200, L500.4100, L506.1000, L100.0100, L503.0105, L500.2500, L501.9985 #### [facility] [address] [place], [address] Chloride [Moles/Vol] 112 mmol/L High 98-107 [facility] Comment on above: Order Comment: . Performed By: #### L 501.9520, L501.5200, L500.4100, L506.1000, L100.0100, L503.0105, L500.2500, L501.9985 #### [facility] [address] [place], [address] CO2 [Moles/Vol] 24.0 mmol/L Normal 21.0-32.0 [facility] Comment on above: Order Comment: .1 Performed By: #### L 501.9520, L501.5200, L500.4100, L506.1000, L100.0100, L503.0105, L500.2500, L501.9985 #### [facility] [address] [place], [address] Creatinine [Mass/Vol] 0.87 mg/dL Normal 0.55-1.02 [facility] Comment on above: Order Comment: .1 Result Comment: The validity of the calculated GFR GFRAA in patients over 70 years has not been determined. Clinical correlation is essential. Performed By: #### L 501.9520, L501.5200, L500.4100, L506.1000, L100.0100, L503.0105, L500.2500, L501.9985 #### [facility] [address] [place], [address] EST GFR - AA 81 mL/min Normal >60 [facility] Comment on above: Order Comment: .1 Result Comment: Afri can Serbian GFR Calc Performed By: #### L 501.9520, L501.5200, L500.4100, L506.1000, L100.0100, L503.0105, L500.2500, L501.9985 #### [facility] [address] [place], [place], [phone] GAP 7 Normal 5-15 [facility] Comment on above: Order Comment: .1 Performed By: #### L 501.9520, L501.5200, L500.4100, L506.1000, L100.0100, L503.0105, L500.2500, L501.9985 #### [facility] [address] [place], [place], [phone] ([address]) GFR/1.73 sq M.predicted among non-blacks MDRD (S/P/Bld) [Vol rate/Area] 67 mL/min/{1.73_m2} Normal >60 [facility] Comment on above: Order Comment: .1 Result Comment: Non- GFR Calc Performed By: #### L 501.9520, L501.5200, L500.4100, L506.1000, L100.0100, L503.0105, L500.2500, L501.9985 #### [facility] [address] [place], [place], [phone] Glucose [Mass/Vol] 105 mg/dL Normal 74-106 [facility] Comment on above: Order Comment: .1 Result Comment: Fast ing Glucose result from 100 to 125 mg/dL suggests IMPAIRED HOMEOSTASIS per A.D.A. criteria. Performed By: #### L 501.9520, L501.5200, L500.4100, L506.1000, L100.0100, L503.0105, L500.2500, L501.9985 #### [facility] [address] [place], [address] Potassium [Moles/Vol] 3.5 mmol/L Normal 3.5-5.1 [facility] Comment on above: Order Comment: .1 Performed By: #### L 501.9520, L501.5200, L500.4100, L506.1000, L100.0100, L503.0105, L500.2500, L501.9985 #### [facility] [address] [place], [place], [phone] Sodium [Moles/Vol] 143 mmol/L Normal 136-145 [facility] Comment on above: Order Comment: .1 Performed By: #### L 501.9520, L501.5200, L500.4100, L506.1000, L100.0100, L503.0105, L500.2500, L501.9985 #### [facility] [address] [place], [place], [phone] Urea nitrogen [Mass/Vol] 19 mg/dL High 7-18 [facility] Comment on above: Order Comment: .1 Performed By: #### L 501.9520, L501.5200, L500.4100, L506.1000, L100.0100, L503.0105, L500.2500, L501.9985 #### [facility] [address] [place], [address] CBC W/Diff, Automatedon 11-2 1-2023 Absolute Lymph 2.50 X10 3/uL Normal 0.83-4.51 [facility] Comment on above: Order Comment: .1 Performed By: #### L 501.9520, L501.5200, L500.4100, L506.1000, L100.0100, L503.0105, L500.2500, L501.9985 #### [facility] [address] [place], [address] Absolute Neut 5.9 X10 3/uL Normal 2.0-7.7 [facility] Comment on above: Order Comment: .1 Performed By: #### L 501.9520, L501.5200, L500.4100, L506.1000, L100.0100, L503.0105, L500.2500, L501.9985 #### [facility] [address] [place], [address] Basophils/100 WBC (Bld) 0.4 % Normal 0-1 [facility] Comment on above: Order Comment: .1 Performed By: #### L 501.9520, L501.5200, L500.4100, L506.1000, L100.0100, L503.0105, L500.2500, L501.9985 #### [facility] [address] [place], [address] Eosinophils/100 WBC (Bld) 0.8 % Normal 0-5 [facility] Comment on above: Order Comment: 207.1 Performed By: #### L 501.9520, L501.5200, L500.4100, L506.1000, L100.0100, L503.0105, L500.2500, L501.9985 #### [facility] [address] [place], [address] Erythrocyte distribution width (RBC) [Ratio] 13.8 % Normal 11.6-14.6 [facility] Comment on above: Order Comment: 207.1 Performed By: #### L 501.9520, L501.5200, L500.4100, L506.1000, L100.0100, L503.0105, L500.2500, L501.9985 #### [facility] [address] [place], [address] Hematocrit (Bld) [Volume fraction] 42.7 % Normal 37-47 [facility] Comment on above: Order Comment: 207.1 Performed By: #### L 501.9520, L501.5200, L500.4100, L506.1000, L100.0100, L503.0105, L500.2500, L501.9985 #### [facility] [address] [facility] [place], [address] Hemoglobin (Bld) [Mass/Vol] 14.3 g/dL Normal 12.0-15.0 [facility] Comment on above: Order Comment: .1 Performed By: #### L 501.9520, L501.5200, L500.4100, L506.1000, L100.0100, L503.0105, L500.2500, L501.9985 #### [facility] [address] [facility] [place], [address] IG% 0.500 Normal 0.0-0.9 [facility] Comment on above: Order Comment: 207.1 Result Comment: IG% - Immature Granulocytes (promyelocytes, myelocytes and metamyelocytes) > 1% indicates that a LEFT SHIFT is Present. Performed By: #### L 501.9520, L501.5200, L500.4100, L506.1000, L100.0100, L503.0105, L500.2500, L501.9985 #### [facility] [address] [place], [address] Lymphocytes/100 WBC (Bld) 26.2 % Normal 19-41 [facility] Comment on above: Order Comment: 207.1 Performed By: #### L 501.9520, L501.5200, L500.4100, L506.1000, L100.0100, L503.0105, L500.2500, L501.9985 #### [facility] [address] [place], [address] MCH (RBC) [Entitic mass] 31.2 pg Normal 27.0-32.0 [facility] Comment on above: Order Comment: 207.1 Performed By: #### L 501.9520, L501.5200, L500.4100, L506.1000, L100.0100, L503.0105, L500.2500, L501.9985 #### [facility] [address] [place], [address] MCHC (RBC) [Mass/Vol] 33.5 g/dL Normal 32-36 [facility] Comment on above: Order Comment: .1 Performed By: #### L 501.9520, L501.5200, L500.4100, L506.1000, L100.0100, L503.0105, L500.2500, L501.9985 #### [facility] [address] [place], [address] MCV (RBC) [Entitic vol] 93.2 fL Normal 81-99 [facility] Comment on above: Order Comment: 207.1 Performed By: #### L 501.9520, L501.5200, L500.4100, L506.1000, L100.0100, L503.0105, L500.2500, L501.9985 #### [facility] [address] [place], [address] Monocytes/100 WBC (Bld) 10.5 % High 0-10 [facility] Comment on above: Order Comment: 207.1 Performed By: #### L 501.9520, L501.5200, L500.4100, L506.1000, L100.0100, L503.0105, L500.2500, L501.9985 #### [facility] [address] [place], [address] Neutrophils/100 WBC (Bld) 61.6 % Normal 47-70 [facility] Comment on above: Order Comment: . Performed By: #### L 501.9520, L501.5200, L500.4100, L506.1000, L100.0100, L503.0105, L500.2500, L501.9985 #### [facility] [address] [place], [address] Nucleated RBC (Bld) [#/Vol] 0 10*3/uL Normal 0-5 [facility] Comment on above: Order Comment: . Performed By: #### L 501.9520, L501.5200, L500.4100, L506.1000, L100.0100, L503.0105, L500.2500, L501.9985 #### [facility] [address] [place], [address] Platelet mean volume (Bld) [Entitic vol] 10.0 fL Normal 6.2-12.0 [facility] Comment on above: Order Comment: . Performed By: #### L 501.9520, L501.5200, L500.4100, L506.1000, L100.0100, L503.0105, L500.2500, L501.9985 #### [facility] [address] [place], [address] Platelets (Bld) [#/Vol] 290 10*3/uL Normal 150-450 [facility] Comment on above: Order Comment: . Performed By: #### L 501.9520, L501.5200, L500.4100, L506.1000, L100.0100, L503.0105, L500.2500, L501.9985 #### [facility] [address] [place], [address] RBC (Bld) [#/Vol] 4.58 10*6/uL Normal 4.2-5.4 [facility] Comment on above: Order Comment: .1 Performed By: #### L 501.9520, L501.5200, L500.4100, L506.1000, L100.0100, L503.0105, L500.2500, L501.9985 #### [facility] [address] [place], [address] RDW SD 46.5 fl High 35.1-43.9 [facility] Comment on above: Order Comment: . Performed By: #### L 501.9520, L501.5200, L500.4100, L506.1000, L100.0100, L503.0105, L500.2500, L501.9985 #### [facility] [address] [place], [place], [phone] ([phone] WBC (Bld) [#/Vol] 9.5 10*3/uL Normal 4.4-11.0 [facility] Comment on above: Order Comment: . Performed By: #### L 501.9520, L501.5200, L500.4100, L506.1000, L100.0100, L503.0105, L500.2500, L501.9985 #### [facility] [address] [place], [place], [phone] (700) Hemoglobin A1con 01-23-2024 HbA1c (Bld) [Mass fraction] 5.5 % Normal 3.8-5.6 [facility] Comment on above: Order Comment: .1 Result Comment: Norm al < 5.7 % Prediabetic 5.7 - 6.4 % Diabetic >or= 6.5 % Please note range changes. Performed By: #### L 501.9520, L501.5200, L500.4100, L506.1000, L100.0100, L503.0105, L500.2500, L501.9985 ####[facility] [address] [place], [address] Lipid Profileon 01-23-2024 Cholesterol [Mass/Vol] 237 mg/dL High 200 [facility] Comment on above: Order Comment: 207.1 Result Comment: <200 mg/dL Desirable 200-240 mg/dL Borderline >240 mg/dL High Risk Performed By: #### L 501.9520, L501.5200, L500.4100, L506.1000, L100.0100, L503.0105, L500.2500, L501.9985 #### [facility] [address] [place], [address] Cholesterol in HDL [Mass/Vol] 56 mg/dL Normal [facility] Comment on above: Order Comment: 207.1 Result Comment: The drugs N-Acetylcysteine and Metamizole may falsely depress this assay. Reference Range HDL <40 mg/dL Low HDL Cholesterol HDL >or= 60 mg/dL High HDL Cholesterol Performed By: #### L 501.9520, L501.5200, L500.4100, L506.1000, L100.0100, L503.0105, L500.2500, L501.9985 #### [facility] [address] [place], [address] Cholesterol in LDL [Mass/Vol] 138 mg/dL High 0-130 [facility] Comment on above: Order Comment: .1 Performed By: #### L 501.9520, L501.5200, L500.4100, L506.1000, L100.0100, L503.0105, L500.2500, L501.9985 #### [facility] [address] [place], [address] Cholesterol in VLDL [Mass/Vol] 43 mg/dL High 5-40 [facility] Comment on above: Order Comment: 207.1 Performed By: #### L 501.9520, L501.5200, L500.4100, L506.1000, L100.0100, L503.0105, L500.2500, L501.9985 #### [facility] [address] [place], [place], [id number] (171) Triglyceride [Mass/Vol] 214 mg/dL High [facility] Comment on above: Order Comment: 207.1 Result Comment: The drugs N-Acetylcysteine and Metamizole may falsely depress this assay. Serum Triglycerides Reference Interval Normal <150 mg/dL Borderline high 150 - 199 mg/dL High 200 - 499 mg/dL Very High > or = 500 mg/dL Performed By: #### L 501.9520, L501.5200, L500.4100, L506.1000, L100.0100, L503.0105, L500.2500, L501.9985 #### [facility] [address] [place], [place], [id number] Magnesiumon 01-23-2024 Magnesium [Mass/Vol] 2.4 mg/dL Normal 1.6-2.6 [facility] Comment on above: Order Comment: .1 Performed By: #### L 501.9520, L501.5200, L500.4100, L506.1000, L100.0100, L503.0105, L500.2500, L501.9985 #### [facility] [address] [place], [address] Thyroid Stim Hormone (TSH)on 01-23-2024 TSH 1.230 uIU/mL Normal 0.358-3.74 0 [facility] Comment on above: Order Comment: .1 Performed By: #### L 501.9520, L501.5200, L500.4100, L506.1000, L100.0100, L503.0105, L500.2500, L501.9985 ####[facility] [address] [place], [place], [id number] Vitamin B12on 01-23-2024 Cobalamin (Vitamin B12) [Mass/Vol] 730 pg/mL Normal 211-911 [facility] Comment on above: Order Comment: 207.1 Performed By: #### L 501.9520, L501.5200, L500.4100, L506.1000, L100.0100, L503.0105, L500.2500, L501.9985 #### [facility] [address] [place], [address] Vitamin D,25 Hydroxyon 01-22 Vitamin D 25-OH 40.4 ng/mL Normal [facility] Comment on above: Order Comment: 207.1 Result Comment: Deborah min D 25(OH) Status Range Deficiency <20 ng/mL (50nmol/L) Insufficiency 20 - 30 ng/mL (50 - 75 nmol/L) Sufficiency 30 - 100 ng/mL (75 - 250 nmol/L) Toxicity >100 ng/mL (>250 nmol/L) Performed By: #### L 501.9520, L501.5200, L500.4100, L506.1000, L100.0100, L503.0105, L500.2500, L501.9985 #### [facility] [address] [place], [address] Emergency Department Summary on 01-22-2024 Emergency Department Summary [facility] Medical Records Department [address] [facility] [place] [address] Emergency Department Summary 01/22/24 MR#: [id number] Acct: [id number] Name: RAMOS PADRON Rep #: [id number] : 1945 78 From: Lázaro River DO PCP: Dr. Dmitry Burk MD Status:REG ER Location: ED ADDENDUM by Dr. John Webb DO on 01/22/24 at 1714 Care of the patient was turned over to nm pending placement at snf facility. Social work was able to get the patient placed to [facility]. Patient was admitted to [facility] nursing [facility]. 01/22/24 1714 Cosigner Signature (if applicable): [...] consciousness. was able to get her up. [facility] Medical History De Quervain's tenosynovitis, right Osteoarthritis [...] 97.8 F (more content not included)... Normal [facility] Humerus min 2 Viewson 2023 Humerus min 2 Views [facility] Imaging Services [address] [place], [place] [id number] Humerus min 2 Views MR#: [id number] Acct: [id number] Name: RAMOS PADRON Rep #: [id number] : 1945 F 78 From: Max coto MD PCP: Dr. Dmitry Burk MD Status: REG ER Study: Humerus min 2 Views Date of Exam: 01/22/24 Exam# [id number] Ordering Dr: Lázaro River DO [id number] STUDY: X-RAY - RIGHT HUMERUS REASON FOR [...] 13:31 EST Reading Location ID and State: [address] [place] [address] , Service support , CC: Dr. Dmitry Burk MD; Dr. Lázaro River DO Quality Assurance Assistant: Signed Normal [facility] Shoulder min 2 Viewson 01-21 Shoulder min 2 Views [facility] Imaging Services [address] [place] [id number] Shoulder min 2 Views MR#: [id number] Acct: [id number] Name: RAMOS PADRON Rep #: [id number] : 1945 F 78 From: Max coto MD PCP: Dr. Dmitry Burk MD Status: REG ER Study: Shoulder min 2 Views Date of Exam: 01/22/24 Exam# [id number] Ordering Dr: Lázaro River DO [id number] STUDY: X-RAY - RIGHT SHOULDER REASON FOR [...] Dmitry Burk MD; Dr. Lázaro River DO Quality Assurance Assistant: Signed Normal [facility] CNCOon 01-20-2024 CNCO Letter Text Normal [facility] CNOVon 01-20-2024 CNOV Office Visit (NRMDN) -- RAMOS PADRON ([id number]) 1945 F Date Time Provider Department 01/20/24 [...] or you can send a message through [employer]. You can also now schedule and select appointments through [employer]. MD Yanique Phillips Kristin, MD 01/20/2024 12:38 PM Signed [facility] - FOLLOW UP EVALUATION Dmitry Burk MD [address] [place] [address] [facility] [address] I had the pleasure of seeing Ms. [...] No ALLERGIES (more content not included)... Normal [facility] [id number] 11-08-2023 [id number] HNO ID: [id number] Author: JESENIA JAMES PT, DPT Service: ? Author Type: Physical Therapist Type: [id number] Filed: 11/08/2023 14:50 Note Text: [facility] Physical Therapy Plan of Care Certification Patient Name: Ramos Padron : 1945 [facility] #: [id number] Date: 11/08/2023 To: Juliet Chanel MD From [...] reviewed the treatment plan for Ramos Padron, [facility]# [id number] for the period of 11/08/23 -- 11/08/23, established on 11/08/2023. Signature certifies the need for therapy services. [facility] CNTHERAPYon 11-08-2023 CNTHERAPY OT/PT/Speech Visit (PTMDRG) -- RAMOS PADRON ([id number]) 1945 F Date Time Provider Department 11/08/23 10:00 AM JESENIA JAMES Date Time Provider Department Center 11/08/2023 10:00 AM [id number] JAMES [facility] Reason for Visit: PT Discharge [752] Primary Visit Diagnosis:PSP (progressive supranuclear palsy) ([facility]) [G23.1] Other Visit Diagnoses:Imbalance [R26.89] Abnormality of [...] 1 tablet by mouth once daily. Normal [facility] CNTHERAPYon 08-09-2023 CNTHERAPY OT/PT/Speech Visit (PTMDRG) -- RAMOS PADRON ([id number]) 1945 F Date Time Provider Department 08/09/23 2:00 PM JESENIA JAMES Date Time Provider Department Center 08/09/2023 2:00 PM [id number] JAMES [facility] Reason for Visit: PT Progress Note [1596] [...] 1 tablet by mouth once daily. -- Director [employer]: Addendum Therapy (PT/OT/Speech/Resp) ID: [id number] 08/09/2023 2:13 PM Author: JESENIA JAMES Signed by JESENIA JAMES PT, DPT on 08/09/2023 at 2:13 PM * * * This document replaces document [id number] * * * Document text: Program_ID:[id number] Access Code: [email or web address] URL: [email or web address] Date: 08-09-2023 Prepared By: Jesenia James Program [...] weekly - 1 sets - 10 reps [facility] THERAPY NTon 08-09-2023 THERAPY NT HNO ID: [id number] Author: JESENIA JAMES, PT, DPT Service: Physical Therapy Author Type: Physical Therapist Type: Therapy (PT/OT/Speech/Resp) Filed: 08/09/2023 14:13 Note Text: Program_ID:[id number] Access Code: [email or web address] URL: [email or web address] Date: 08-09-2023 Prepared By: Jesenia James Program [...] - 1 sets - 10 reps Normal [facility] CNTHERAPYon 07-17-2023 CNTHERAPY OT/PT/Speech Visit (PTMDRG) -- RAMOS PADRON ([id number]) 1945 F [place] Date Time Provider Department 07/17/23 10:45 AM LYSSA KEMP Date Time Provider Department Center 07/17/2023 10:45 AM [id number] KEMP PTMG [facility] Reason for Visit: Physical Therapy [503] Primary [...] tablet by mouth once daily. -- Normal [facility] CNTHERAPYon 07-12-2023 CNTHERAPY OT/PT/Speech Visit (PTMDRG) -- RAMOS PADRON ([id number]) 1945 [place] [facility] Date Time Provider Department 07/12/23 10:45 AM LYSSA KEMP Date Time Provider Department [place] 07/12/2023 10:45 AM [id number] KEMP [facility] Reason for Visit: Physical Therapy [503] Primary [...] tablet by mouth once daily. -- Normal [facility] CNTHERAPYon 07-05-2023 CNTHERAPY OT/PT/Speech Visit (PTMDRG) -- RAMOS PADRON ([id number]) 1945 F [place] Date Time Provider Department 07/05/23 10:00 AM LYSSA KEMP Date Time Provider Department [place] 07/05/2023 10:00 AM [id number] KEMP PTMAISHWARYA [facility] Reason for Visit: Physical Therapy [503] Primary [...] 1 tablet by mouth once daily. -- [facility] CNTHERAPYon 06-28-2023 CNTHERAPY OT/PT/Speech Visit (PTMDRG) -- RAMOS PADRON ([id number]) 1945 F [place] Date Time Provider Department 06/28/23 10:45 AM JESENIA JAMES Date Time Provider Department [place] 06/28/2023 10:45 AM [id number] JAMES [facility] Reason for Visit: PT Progress Note [1596] Primary Visit Diagnosis:PSP (progressive supranuclear palsy) ([facility]) [G23.1] Other Visit Diagnoses:Imbalance [R26.89] Abnormality of [...] 1 tablet by mouth once daily. -- [facility] CNTHERAPYon 06-21-2023 CNTHERAPY OT/PT/Speech Visit (PTMDRG) -- RAMOS PADRON ([id number]) 1945 F [place] Date Time Provider Department 06/21/23 9:15 AM LYSSA KEMPG Date Time Provider Department [place] 06/21/2023 9:15 AM [id number] KEMP [facility] Reason for Visit: Physical Therapy [503] Primary [...] 1 tablet by mouth once daily. [facility] OT/PT/Speech Visit (PTMDRG) -- RAMOS PADRON ([id number]) 1945 F [place] Date Time Provider Department 06/14/23 9:15 AM LYSSA KEMP Date Time Provider Department [place] 06/14/2023 9:15 AM [id number] KEMP [facility] Reason for Visit: Physical Therapy [503] Primary [...] 1 tablet by mouth once daily. -- [facility] CNTHERAPYon 06-07-2023 CNTHERAPY OT/PT/Speech Visit (PTMDRG) -- GWENRAMOS WILBURN ([id number]) 1945 F [place] Date Time Provider Department 06/07/23 9:15 AM LYSSA KEMP Date Time Provider Department [place] 06/07/2023 9:15 AM [id number] KEMP [facility] Reason for Visit: Physical Therapy [503] Primary Visit Diagnosis:PSP (progressive supranuclear palsy) ([facility]) [G23.1] Other Visit Diagnoses:Imbalance [R26.89] Abnormality of [...] 1 tablet by mouth once daily. -- [facility] [id number] 05-27-2023 [id number] HNO ID: [id number] Author: JESENIA JAMES PT, DPT Service: ? Author Type: Physical Therapist Type: [id number] Filed: 05/27/2023 13:52 Note Text: [facility] Physical Therapy Plan of Care Certification Patient Name: Ramos Padron : 1945 [facility] #: [id number] Date: 05/27/2023 To: Juliet Chanel MD From [...] encounter diagnosis) G23.1 PSP (progressive supranuclear palsy) ([facility]) R26.9 Abnormality of gait R29.6 Falls frequently [...] Planned: 8 Planned Treatment Interventions: Therapeutic exercise (82517), Neuromuscular re-education (25361), Manual therapy (20391), Therapeutic activities (80655), Self-senior care management (03892), Gait Training (78246), Patient/Family/Caregiver Education PLAN FOR NEXT VISIT: PROMIS [...] the treatment plan for Ramos Jacinta Padron, [facility]# [id number] for the period of 05/27/23 -- 08/25/23, established on 05/27/2023. Signature certifies the need for therapy services. [facility] CNTHERAPYon 05-27-2023 CNTHERAPY OT/PT/Speech Visit (PTMDRG) -- RAMOS PADRON ([id number]) 1945 F [place] Date Time Provider Department 05/27/23 10:45 AM JESENIA JAMES PTMAISHWARYA Date Time Provider Department Center 05/27/2023 10:45 AM [id number] JAEMS PTMAISHWARYA [facility] Reason for Visit: PT Eval [747] Patient [...] tablet by mouth once daily. -- Normal [facility] No Panel Informationon 03-06 [place] 125 Antigen 9.1 U/mL 0.0-38.1 [facility] Comment on above: [employer] El ectrochemiluminescence Immunoassay(ECLIA)Values obtained with different assay methods or kits cannotbe used interchangeably. Results cannot be interpreted asabsolute evidence of the presence or absence of malignantdisease.Performed at: [facility] [id number] Director: Kash Silva PhD, Phone: [phone] Absolute lymphocyte countOrd ered By: Dmitry Burk on 09-12-2022 Lymphocytes Auto (Unsp spec) [#/Vol] 3.40 10*3/uL 0.83-4.51 [facility] Basophil percentageOrdered B y: Dmitry Burk on 09-12-2022 Basophils/100 WBC (Bld) 0.5 % 0-1 [facility] Bilirubin [Mass/Vol] 0.30 mg/dL 0.20-1.00 [facility] Comment on above: For patients on eltr ombopag therapy, use of Dimension [place] TBIL is not recommended. Chloride [Moles/Vol] 108 mmol/L 98-107 [facility] Eosinophils/100 WBC (Bld) 1.4 % 0-5 [facility] Glucose [Mass/Vol] 92 mg/dL 74-106 [facility] Neutrophils (Bld) [#/Vol] 3.6 10*3/uL 2.0-7.7 [facility] Neutrophils/100 WBC (Bld) 46.1 % 47-70 [facility] Potassium [Moles/Vol] 3.9 mmol/L 3.5-5.1 [facility] Protein [Mass/Vol] 7.6 g/dL 6.4-8.2 [facility] Sodium [Moles/Vol] 140 mmol/L 136-145 [facility] WBC (Bld) [#/Vol] 7.9 10*3/uL 4.4-11.0 [facility] Blood erythrocytes count (nu mber/volume)Ordered By: Dmitry Burk on 09-12-2022 RBC (Bld) [#/Vol] 5.01 10*6/uL 4.2-5.4 [facility] Blood hemoglobin measurement (mass/volume)Ordered By: Dmitry Burk on 09-12-2022 Hemoglobin (Bld) [Mass/Vol] 15.1 g/dL 12.0-15.0 [facility] Blood lymphocytes/100 leukoc ytesOrdered By: Dmitry Burk on 09-12-2022 Lymphocytes/100 WBC (Bld) 43.2 % 19-41 [facility] Blood monocytes/100 leukocyt esOrdered By: Dmitry Burk on 09-12-2022 Monocytes/100 WBC (Bld) 8.5 % 0-10 [facility] Blood platelet mean volumeOr dered By: Dmitry Burk on 09-12-2022 Platelet mean volume (Bld) [Entitic vol] 10.0 fL 6.2-12.0 [facility] Determination of erythrocyte mean corpuscular volume (MCV)Ordered By: Dmitry Burk on 09-12-2022 MCV (RBC) [Entitic vol] 94.8 fL 81-99 [facility] Hematocrit Auto (Bld) [Volum e fraction]Ordered By: Dmitry Burk on 09-12-2022 Hematocrit (Bld) [Volume fraction] 47.5 % 37-47 [facility] - Chemistry and C hemistry - challengeOrdered By: Dmitry Burk on 09-12-2022 ALP [Catalytic activity/Vol] 75 U/L 45-117 [facility] ALT [Catalytic activity/Vol] 9 U/L 13-56 [facility] CO2 [Moles/Vol] 26.0 mmol/L 21.0-32.0 [facility] Globulin (S) [Mass/Vol] 4.2 g/dL 2.2-4.2 [facility] Urea nitrogen/Creatinine [Mass ratio] 16.3 mg/mg 10-20 [facility] - Hematology and Cell countsOrdered By: Dmitry Burk on 09-12-2022 Erythrocyte distribution width (RBC) [Entitic vol] 44.7 fL 35.1-43.9 [facility] Erythrocyte distribution width (RBC) [Ratio] 13.0 % 11.6-14.6 [facility] Immature granulocytes/100 WBC (Bld) 0.300 % 0.0-0.9 [facility] Comment on above: IG% - Immature Granu locytes (promyelocytes, myelocytes and metamyelocytes) > 1% indicates that a LEFT SHIFT is Present. MCH (RBC) [Entitic mass] 30.1 pg 27.0-32.0 [facility] Nucleated RBC/100 WBC (Bld) [Ratio] 0 % 0-5 [facility] MCHC Auto (RBC) [Mass/Vol]Or dered By: Dmitry Burk on 09-12-2022 MCHC (RBC) [Mass/Vol] 31.8 g/dL 32-36 [facility] No Panel InformationOrdered By: Dmitry Burk on 09-12-2022 Estimated GFR (MDRD) Amer 90 mL/min >60 [facility] Comment on above: GFR Calc Estimated GFR (MDRD) Non-Af Amer 74 mL/min >60 [facility] Comment on above: Non- GFR Calc Thyroid Stimulating Hormone (TSH) 1.63 uIU/mL 0.358-3.74 [facility] Vitamin D 25-Hydroxy 68.5 ng/mL [facility] Comment on above: Vitamin D 25(OH) Sta tus Range Deficiency <20 ng/mL (50nmol/L) Insufficiency 20 - 30 ng/mL (50 - 75 nmol/L) Sufficiency 30 - 100 ng/mL (75 - 250 nmol/L) Toxicity >100 ng/mL (>250 nmol/L) Platelets bldOrdered By: Aline Burk on 09-12-2022 Platelets (Bld) [#/Vol] 329 10*3/uL 150-450 [facility] Serum or plasma albumin anat urement (mass/volume)Ordered By: Dmitry Burk on 09-12-2022 Albumin [Mass/Vol] 3.4 g/dL 3.2-5.0 [facility] Serum or plasma albumin/glob ulin mass ratioOrdered By: [facility] on 09-12-2022 Albumin/Globulin [Mass ratio] 0.8 {ratio} 0.9-2.4 [facility] Serum or plasma calcium anat urement (mass/volume)Ordered By: [facility] on 09-12-2022 Calcium [Mass/Vol] 9.3 mg/dL 8.5-10.1 [facility] Serum or plasma creatinine m easurement (mass/volume)Ordered By: [facility] on 09-12-2022 Creatinine [Mass/Vol] 0.80 mg/dL 0.55-1.02 [facility] Comment on above: The validity of the calculated GFR & GFRAA in patients over 70 years has not been determined. Clinical correlation is essential. Serum or plasma urea nitroge n measurement (mass/volume)Ordered By: [facility] on 09-12-2022 Urea nitrogen [Mass/Vol] 13 mg/dL 7-18 [facility] Thin prep Papanicolaou smear with manual screeningOrdered By: [facility] on 09-12-2022 Thin prep Papanicolaou smear with manual screening 12 U/L 15-37 [facility] Thin prep Papanicolaou smear with manual screening 6 5-15 [facility] No Panel InformationOrdered By: Juliet Mohamud on 08-20-2022 Vitamin D 25-Hydroxy 79.2 ng/mL [facility] Comment on above: Vitamin D 25(OH) Sta tus Range Deficiency <20 ng/mL (50nmol/L) Insufficiency 20 - 30 ng/mL (50 - 75 nmol/L) Sufficiency 30 - 100 ng/mL (75 - 250 nmol/L) Toxicity >100 ng/mL (>250 nmol/L) No Panel Informationon 08-08 [place] 125 Antigen 10.6 U/mL 0.0-38.1 [facility] Comment on above: [employer] El ectrochemiluminescence Immunoassay(ECLIA)Values obtained with different assay methods or kits cannotbe used interchangeably. Results cannot be interpreted asabsolute evidence of the presence or absence of malignantdisease.Performed at: [facility] [facility] [id number] Director: Kash Silva PhD, Phone: [phone] Absolute lymphocyte countOrd ered By: Juliet Amadornger on 07-24-2022 Lymphocytes Auto (Unsp spec) [#/Vol] 3.01 10*3/uL 0.83-4.51 [facility] Basophil percentageOrdered B y: Juliet Cade on 07-24-2022 Basophils/100 WBC (Bld) 0.6 % 0-1 [facility] Bilirubin [Mass/Vol] 0.50 mg/dL 0.20-1.00 [facility] Comment on above: For patients on eltr ombopag therapy, use of Dimension [place] TBIL is not recommended. Chloride [Moles/Vol] 106 mmol/L 98-107 [facility] Cholesterol [Mass/Vol] 203 mg/dL <200 [facility] Comment on above: <200 mg/dL Desirable 200-240 mg/dL Borderline >240 mg/dL High Risk Eosinophils/100 WBC (Bld) 0.9 % 0-5 [facility] Glucose [Mass/Vol] 92 mg/dL 74-106 [facility] Neutrophils (Bld) [#/Vol] 4.3 10*3/uL 2.0-7.7 [facility] Neutrophils/100 WBC (Bld) 52.9 % 47-70 [facility] Potassium [Moles/Vol] 4.0 mmol/L 3.5-5.1 [facility] Comment on above: Slight Hemolysis, Re sult may be falsely increased. Protein [Mass/Vol] 7.8 g/dL 6.4-8.2 [facility] Sodium [Moles/Vol] 138 mmol/L 136-145 [facility] Triglyceride [Mass/Vol] 197 mg/dL <199 [facility] Comment on above: The drugs N-Acetylcy steine and Metamizole may falsely depress this assay.Serum Triglycerides Reference Interval Normal <150 mg/dL Borderline high 150 - 199 mg/dL High 200 - 499 mg/dL Very High > or = 500 mg/dL WBC (Bld) [#/Vol] 8.2 10*3/uL 4.4-11.0 [facility] Blood erythrocytes count (nu mber/volume)Ordered By: Juliet Mohamud on 07-24-2022 RBC (Bld) [#/Vol] 5.02 10*6/uL 4.2-5.4 [facility] Blood hemoglobin measurement (mass/volume)Ordered By: Juliet Mohamud on 07-24-2022 Hemoglobin (Bld) [Mass/Vol] 15.6 g/dL 12.0-15.0 [facility] Blood lymphocytes/100 leukoc ytesOrdered By: Juliet Mohamud on 07-24-2022 Lymphocytes/100 WBC (Bld) 36.7 % 19-41 [facility] Blood monocytes/100 leukocyt esOrdered By: Juliet Mohamud on 07-24-2022 Monocytes/100 WBC (Bld) 8.5 % 0-10 [facility] Blood platelet mean volumeOr dered By: Juliet Mohamud on 07-24-2022 Platelet mean volume (Bld) [Entitic vol] 9.9 fL 6.2-12.0 [facility] Determination of erythrocyte mean corpuscular volume (MCV)Ordered By: Juliet Mohamud on 07-24-2022 MCV (RBC) [Entitic vol] 94.2 fL 81-99 [facility] Hematocrit Auto (Bld) [Volum e fraction]Ordered By: Juliet Mohamud on 07-24-2022 Hematocrit (Bld) [Volume fraction] 47.3 % 37-47 [facility] - Chemistry and C hemistry - challengeOrdered By: Juliet Mohamud on 07-24-2022 ALP [Catalytic activity/Vol] 74 U/L 45-117 [facility] ALT [Catalytic activity/Vol] 18 U/L 13-56 [facility] CO2 [Moles/Vol] 27.0 mmol/L 21.0-32.0 [facility] Cobalamin (Vitamin B12) [Mass/Vol] 513 pg/mL 211-911 [facility] Globulin (S) [Mass/Vol] 4.1 g/dL 2.2-4.2 [facility] Urea nitrogen/Creatinine [Mass ratio] 18.8 mg/mg 10-20 [facility] - Hematology and Cell countsOrdered By: Juliet Mohamud on 07-24-2022 Erythrocyte distribution width (RBC) [Entitic vol] 45.8 fL 35.1-43.9 [facility] Erythrocyte distribution width (RBC) [Ratio] 13.2 % 11.6-14.6 [facility] Immature granulocytes/100 WBC (Bld) 0.400 % 0.0-0.9 [facility] Comment on above: IG% - Immature Granu locytes (promyelocytes, myelocytes and metamyelocytes) > 1% indicates that a LEFT SHIFT is Present. MCH (RBC) [Entitic mass] 31.1 pg 27.0-32.0 [facility] Nucleated RBC/100 WBC (Bld) [Ratio] 0 % 0-5 [facility] MCHC Auto (RBC) [Mass/Vol]Or dered By: Juleit Mohamud on 07-24-2022 MCHC (RBC) [Mass/Vol] 33.0 g/dL 32-36 [facility] No Panel InformationOrdered By: Juliet Mohamud on 07-24-2022 Estimated GFR (MDRD) Amer 83 mL/min >60 [facility] Comment on above: GFR Calc Estimated GFR (MDRD) Non-Af Amer 69 mL/min >60 [facility] Comment on above: Non- GFR Calc Thyroid Stimulating Hormone (TSH) 1.23 uIU/mL 0.358-3.74 [facility] Platelets bldOrdered By: Con Mohamud on 07-24-2022 Platelets (Bld) [#/Vol] 338 10*3/uL 150-450 [facility] Serum or plasma albumin anat urement (mass/volume)Ordered By: Juliet Mohamud on 07-24-2022 Albumin [Mass/Vol] 3.7 g/dL 3.2-5.0 [facility] Serum or plasma albumin/glob ulin mass ratioOrdered By: Juliet Mohamud on 07-24-2022 Albumin/Globulin [Mass ratio] 0.9 {ratio} 0.9-2.4 [facility] Serum or plasma calcium anat urement (mass/volume)Ordered By: Juliet Mohamud on 07-24-2022 Calcium [Mass/Vol] 9.4 mg/dL 8.5-10.1 [facility] Serum or plasma cholesterol in HDL measurement (mass/volume)Ordered By: Juliet Mohamud on 07-24-2022 Cholesterol in HDL [Mass/Vol] 64 mg/dL >40 [facility] Comment on above: The drugs N-Acetylcy steine and Metamizole may falsely depress this assay. Reference Range HDL <40 mg/dL Low HDL Cholesterol HDL >or= 60 mg/dL High HDL Cholesterol Serum or plasma cholesterol in VLDL measurement (mass/volume)Ordered By: Juliet Mohamud on 07-24-2022 Cholesterol in VLDL [Mass/Vol] 39 mg/dL 5-40 [facility] Serum or plasma creatinine m easurement (mass/volume)Ordered By: Juliet Mohamud on 07-24-2022 Creatinine [Mass/Vol] 0.85 mg/dL 0.55-1.02 [facility] Comment on above: The validity of the calculated GFR & GFRAA in patients over 70 years has not been determined. Clinical correlation is essential. Serum or plasma low density lipoprotein (LDL) cholesterol measurement (mass/volume)Ordered By: Juliet Mohamud on 07-24-2022 Cholesterol in LDL [Mass/Vol] 100 mg/dL 0-130 [facility] Serum or plasma urea nitroge n measurement (mass/volume)Ordered By: Juliet Mohamud on 07-24-2022 Urea nitrogen [Mass/Vol] 16 mg/dL 7-18 [facility] Thin prep Papanicolaou smear with manual screeningOrdered By: Juliet Mohamud on 07-24-2022 Thin prep Papanicolaou smear with manual screening 14 U/L 15-37 [facility] Comment on above: Slight Hemolysis, Re sult may be falsely increased. Thin prep Papanicolaou smear with manual screening 5 5-15 [facility] No Panel InformationOrdered By: Dr. Munoz on 02-06-2022 CA 125 Antigen 11.4 U/mL 0.0-38.1 [facility] Comment on above: [employer] El ectrochemiluminescence Immunoassay(ECLIA)Values obtained with different assay methods or kits cannotbe used interchangeably. Results cannot be interpreted asabsolute evidence of the presence or absence of malignantdisease.Performed at: [address] [id number] Director: Kash Silva PhD, Phone: [phone] CT HEAD OR BRAIN W/O CONTRAS Ton [...] 12/14/2021 12:16:31 PM Ordering Provider: JHON Tillman [facility] ([place]) Absolute lymphocyte countOrd ered By: Dr. Pollard on 11-30-2021 Lymphocytes Auto (Unsp spec) [#/Vol] 3.44 10*3/uL 0.83-4.51 [facility] Basophil percentageOrdered B y: Dr. Pollard on 11-30-2021 Basophils/100 WBC (Bld) 0.4 % 0-1 [facility] Chloride [Moles/Vol] 109 mmol/L 98-107 [facility] Eosinophils/100 WBC (Bld) 1.3 % 0-5 [facility] Glucose [Mass/Vol] 96 mg/dL 74-106 [facility] Neutrophils (Bld) [#/Vol] 5.1 10*3/uL 2.0-7.7 [facility] Neutrophils/100 WBC (Bld) 54.2 % 47-70 [facility] Potassium [Moles/Vol] 3.6 mmol/L 3.5-5.1 [facility] Sodium [Moles/Vol] 141 mmol/L 136-145 [facility] WBC (Bld) [#/Vol] 9.3 10*3/uL 4.4-11.0 [facility] Blood erythrocytes count (nu mber/volume)Ordered By: Dr. Pollard on 11-30-2021 RBC (Bld) [#/Vol] 4.48 10*6/uL 4.2-5.4 [facility] Blood hemoglobin measurement (mass/volume)Ordered By: Dr. Pollard on 11-30-2021 Hemoglobin (Bld) [Mass/Vol] 13.8 g/dL 12.0-15.0 [facility] Blood lymphocytes/100 leukoc ytesOrdered By: Dr. Pollard on 11-30-2021 Lymphocytes/100 WBC (Bld) 36.8 % 19-41 [facility] Blood monocytes/100 leukocyt esOrdered By: Dr. Pollard on 11-30-2021 Monocytes/100 WBC (Bld) 6.6 % 0-10 [facility] Blood platelet mean volumeOr dered By: Dr. Pollard on 11-30-2021 Platelet mean volume (Bld) [Entitic vol] 9.0 fL 6.2-12.0 [facility] COVID-19 virus antigen assay Ordered By: Dr. Pollard on 11-30-2021 SARS-CoV-2 (COVID-19) Ag IA.rapid Ql (Resp) [facility] Determination of erythrocyte mean corpuscular volume (MCV)Ordered By: Dr. Pollard on 11-30-2021 MCV (RBC) [Entitic vol] 92.2 fL 81-99 [facility] Hematocrit Auto (Bld) [Volum e fraction]Ordered By: Dr. Pollard on 11-30-2021 Hematocrit (Bld) [Volume fraction] 41.3 % 37-47 [facility] Laboratory - Chemistry and C hemistry - challengeOrdered By: Dr. Pollard on 11-30-2021 CO2 [Moles/Vol] 25.0 mmol/L 21.0-32.0 [facility] Urea nitrogen/Creatinine [Mass ratio] 19.3 mg/mg 10-20 [facility] Laboratory - Hematology and Cell countsOrdered By: Dr. Pollard on 11-30-2021 Erythrocyte distribution width (RBC) [Entitic vol] 44.9 fL 35.1-43.9 [facility] Erythrocyte distribution width (RBC) [Ratio] 13.2 % 11.6-14.6 [facility] Immature granulocytes/100 WBC (Bld) 0.700 % 0.0-0.9 [facility] Comment on above: IG% - Immature Granu locytes (promyelocytes, myelocytes and metamyelocytes) > 1% indicates that a LEFT SHIFT is Present. MCH (RBC) [Entitic mass] 30.8 pg 27.0-32.0 [facility] Nucleated RBC/100 WBC (Bld) [Ratio] 0 % 0-5 [facility] MCHC Auto (RBC) [Mass/Vol]Or dered By: Dr. Pollard on 11-30-2021 MCHC (RBC) [Mass/Vol] 33.4 g/dL 32-36 [facility] No Panel InformationOrdered By: Dr. Pollard on 11-30-2021 Estimated Creatinine Clearance Calc 45.61 ml/min [facility] Estimated GFR (MDRD) Amer 86 mL/min >60 [facility] Comment on above: GFR Calc Estimated GFR (MDRD) Non-Af Amer 71 mL/min >60 [facility] Comment on above: Non- GFR Calc Platelets bldOrdered By: Dr. Pollard on 11-30-2021 Platelets (Bld) [#/Vol] 311 10*3/uL 150-450 [facility] Serum or plasma calcium anat urement (mass/volume)Ordered By: Dr. Pollard on 11-30-2021 Calcium [Mass/Vol] 8.6 mg/dL 8.5-10.1 [facility] Serum or plasma creatinine m easurement (mass/volume)Ordered By: Dr. Pollard on 11-30-2021 Creatinine [Mass/Vol] 0.83 mg/dL 0.55-1.02 [facility] Comment on above: The validity of the calculated GFR & GFRAA in patients over 70 years has not been determined. Clinical correlation is essential. Serum or plasma urea nitroge n measurement (mass/volume)Ordered By: Dr. Pollard on 11-30-2021 Urea nitrogen [Mass/Vol] 16 mg/dL 7-18 [facility] Thin prep Papanicolaou smear with manual screeningOrdered By: Dr. Pollard on 11-30-2021 Thin prep Papanicolaou smear with manual screening 7 5-15 [facility] .Auto Diffon 11-22-2021 Basophil, Absolute 0.1 10 3/mcL Normal 0.0-0.3 [facility] ([place]) Comment on above: Performed By: #### Lula FOY, BMP ####[address] [address] Basophils/100 WBC (Bld) 0.7 % Normal 0.0-2.5 [facility] ([place]) Comment on above: Performed By: #### Lula FOY, BMP ####[address] [address] Eosinophil, Absolute 0.0 10 3/mcL Normal 0.0-0.7 [facility] ([place]) Comment on above: Performed By: #### G , BMP ####[address] [address] Eosinophils/100 WBC (Bld) 0.0 % Normal 0.0-6.0 [facility] ([place]) Comment on above: Performed By: #### G , BMP ####[address] [address] Lymphocyte, Absolute 1.3 10 3/mcL Normal 0.9-4.3 [facility] ([place]) Comment on above: Performed By: #### Lula FOY, BMP ####[address] [address] Lymphocytes/100 WBC (Bld) 11.3 % Low 20.0-40.0 [facility] ([place] Comment on above: Performed By: #### Lula FOY, BMP ####[address] [address] Monocyte, Absolute 0.7 10 3/mcL Normal 0.1-1.4 [facility] ([place]) Comment on above: Performed By: #### Lula FOY, BMP ####[address] [address] Monocytes/100 WBC (Bld) 6.5 % Normal 2.0-13.0 [facility] ([place] Comment on above: Performed By: #### Lula FOY, BMP ####[address] [address] Neutrophils/100 WBC (Bld) 81.5 % High 50.0-75.0 [facility] ([place] Comment on above: Performed By: #### Lula FOY, BMP ####[address] [address] .GFRon 11-22-2021 GFR >60 Normal [facility] ([place]) Comment on above: Result Comment: GFR Population [...] meters Performed By: #### Lula FOY, BMP ####[address] [address] GFR Non- >60 Normal [facility] ([place]) Comment on above: Result Comment: GFR Population [...] meters Performed By: #### Lula FOY, BMP ####[address] [address] .NEUABSon 11-22-2021 Neutrophil, Absolute 9.1 10 3/mcL High 2.3-8.1 [facility] ([place]) Comment on above: Performed By: #### Lula FOY, BMP ####[address] [address] BMPon 11-22-2021 BUN/Creatinine Ratio 28.2 ratio High 10.0-22.0 [facility] ([place]) Comment on above: Performed By: #### Lula FOY, BMP ####[address] [address] Calcium [Mass/Vol] 9.1 mg/dL Normal 8.7-10.4 [facility] ([place]) Comment on above: Performed By: #### Lula FOY, BMP ####[address] [address] Chloride [Moles/Vol] 108 mmol/L Normal 98-110 [facility] ([place] Comment on above: Performed By: #### Lula FOY, BMP ####[address] [address] CO2 [Moles/Vol] 21 mmol/L Low 22-32 [facility] ([place]) Comment on above: Performed By: #### Lula FOY, BMP ####[place] [address] Creatinine [Mass/Vol] 0.78 mg/dL Normal 0.50-1.20 [facility] ([place]) Comment on above: Performed By: #### Lula FOY, BMP ####[place] [address] Electrolyte Balance 13.0 mEq/L Normal 4.0-15.0 [facility] ([place]) Comment on above: Performed By: #### Lula FOY, BMP ####[place] [address] Glucose [Mass/Vol] 103 mg/dL Normal 82-115 [facility] ([place] Comment on above: Performed By: #### Lula FOY, BMP ####[place] [address] Potassium [Moles/Vol] 3.8 mmol/L Normal 3.5-5.0 [facility] ([place] Comment on above: Performed By: #### Lula FOY, BMP ####[place] [address] Sodium [Moles/Vol] 142 mmol/L Normal 136-145 [facility] ([place] Comment on above: Performed By: #### Lula FOY, BMP ####[place] [address] Urea nitrogen [Mass/Vol] 22.0 mg/dL Normal 8.0-22.0 [facility] ([place] Comment on above: Performed By: #### Lula FOY, BMP ####[place] [address] CBCon 11-22-2021 Erythrocyte distribution width (RBC) [Ratio] 14.0 % Normal 11.5-15.5 [facility] ([place] Comment on above: Performed By: #### Lula FOY, BMP ####[place] [address] Hematocrit (Bld) [Volume fraction] 43.8 % Normal 34.0-46.0 [facility] ([place] Comment on above: Performed By: #### Lula FOY, BMP ####[place] [address] Hgb 14.7 G/dL Normal 12.0-16.0 [facility] ([place] Comment on above: Performed By: #### Lula FOY, BMP ####[place] [address] MCH (RBC) [Entitic mass] 30.7 pg Normal 27.0-33.0 [facility] ([place] Comment on above: Performed By: #### Lula FOY, BMP ####[place] [address] MCHC 33.6 G/dL Normal 32.0-36.0 [facility] ([place] Comment on above: Performed By: #### Lula FOY, BMP ####[place] [address] MCV (RBC) [Entitic vol] 91.5 fL Normal 80.0-99.0 [facility] ([place] Comment on above: Performed By: #### Lula FOY, BMP ####[place] [address] Platelet 261 10 3/mcL Normal 150-450 [facility] ([place] Comment on above: Performed By: #### Lula FOY, BMP ####[place] [address] Platelet mean volume (Bld) [Entitic vol] 7.2 fL Normal 6.6-10.5 [facility] ([place] Comment on above: Performed By: #### Lula FOY, BMP ####[place] [address] RBC 4.79 10 6/mcL Normal 4.10-5.30 [facility] ([place] Comment on above: Performed By: #### Lula FOY, BMP ####[place] [address] WBC 11.2 10 3/mcL High 4.5-10.8 [facility] ([place] Comment on above: Performed By: #### Lula FOY, BMP ####[place] [address] CT HEAD OR BRAIN W/O CONTRAS Ton [...] Right SDH Patient is a transfer from [facility] in [place], no complaints of pain FINDINGS: Hyperdense subdural [...] 11/22/2021 5:30:05 AM Ordering Provider: KIAN HEMPHILL [facility]) CVFLURVocarlie 11-22-2021 Date of Onset [id number] Invalid Interpretation Code [facility] ([place]) Comment on above: Performed By: #### C VFLURV ####[place] [address] Employed in Healthcare No Normal [facility] ([place] Comment on above: Performed By: #### C VFLURV ####[place] [address] First Test Unknown [facility] ([place]) Comment on above: Performed By: #### C VFLURV ####[place] [address] FLU A PCR Negative Normal Negative [facility] ([place] Comment on above: Result Comment: [place] [id number] Performed By: #### C VFLURV ####[place] [address] FLU B PCR Negative Normal Negative [facility] ([place] Comment on above: Result Comment: [place] [id number] Performed By: #### C VFLURV ####[place] [address] Hospitalized Yes [facility] ([place] Comment on above: Performed By: #### C VFLURV ####[place] [address] ICU No [facility] ([place] Comment on above: Performed By: #### C VFLURV ####[place] [address] Not [facility] ([place] Comment on above: Performed By: #### C VFLURV ####[place] [address] Resides in Congregate Care Setting No [facility] ([place] Comment on above: Performed By: #### C VFLURV ####[place] [address] RSV PCR Negative Normal Negative [facility] ([place] Comment on above: Result [place]: [place] [id number] Performed By: #### C VFLURV ####[place] [address] SARS-CoV-2 (COVID-19) RNA HAMZAH+probe Ql (Unsp spec) Negative Normal Negative [facility] ([place] Comment on above: Result Comment: [place] [id number] This test has been authorized by FDA [...] positive results. Performed By: #### C VFLURV ####[place] [address] Symptomatic as Defined by CDC No Normal [facility] ([place] Comment on above: Performed By: #### C VFLURV ####[place] [address] LABORATORYOrdered By: Seda Contreras on 11-22-2021 Date [...] Comment on above: Result Comment: [place] [id number] FLUBV RNA HAMZAH+probe Ql (Resp) Negative 5 (11/22/21 11:21 AM) Invalid Interpretation Code Negative [facility]Sero SS Comment on above: [place]: [place] [id number] Hospitalized Yes (11/22/21 11:21 AM) Invalid Interpretation [...] Comment on above: Result Comment: [place] [id number] SARS-CoV-2 (COVID-19) RNA HAMZAH+probe Ql (Resp) Negative 3 (11/22/21 11:21 AM) Invalid Interpretation Code Negative AH Auto Viro/Sero SS Comment on above: Result Comment: [place] [id number] Symptomatic as Defined by CDC No (11/22/21 [...] Basophil, Absolute 0.1 10 3/mcL Normal 0.0-0.3 [facility] ([place] Comment on above: Performed By: #### G FR, BMP, ABSGEL, ALC, ABOGEL, PRO, APTT #### [address] [address] Basophils/100 WBC (Bld) 0.5 % Normal 0.0-2.5 [facility] ([place] Comment on above: Performed By: #### G FR, BMP, ABSGEL, ALC, ABOGEL, PRO, APTT #### [address] [address] Eosinophil, Absolute 0.0 10 3/mcL Normal 0.0-0.7 [facility] ([place] Comment on above: Performed By: #### G FR, BMP, ABSGEL, ALC, ABOGEL, PRO, APTT #### [address] [address] Eosinophils/100 WBC (Bld) 0.1 % Normal 0.0-6.0 [facility] ([place] Comment on above: Performed By: #### G FR, BMP, ABSGEL, ALC, ABOGEL, PRO, APTT #### [address] [address] Lymphocyte, Absolute 2.5 10 3/mcL Normal 0.9-4.3 [facility] ([place] Comment on above: Performed By: #### G FR, BMP, ABSGEL, ALC, ABOGEL, PRO, APTT #### [address] [address] Lymphocytes/100 WBC (Bld) 18.0 % Low 20.0-40.0 [facility] ([place] Comment on above: Performed By: #### G FR, BMP, ABSGEL, ALC, ABOGEL, PRO, APTT #### [address] [address] Monocyte, Absolute 1.1 10 3/mcL Normal 0.1-1.4 [facility] ([place] Comment on above: Performed By: #### G FR, BMP, ABSGEL, ALC, ABOGEL, PRO, APTT #### [address] [address] Monocytes/100 WBC (Bld) 7.5 % Normal 2.0-13.0 [facility] ([place] Comment on above: Performed By: #### G FR, BMP, ABSGEL, ALC, ABOGEL, PRO, APTT #### [address] [address] Neutrophils/100 WBC (Bld) 73.9 % Normal 50.0-75.0 [facility] ([place] Comment on above: Performed By: #### G FR, BMP, ABSGEL, ALC, ABOGEL, PRO, APTT #### [address] [address] .GFRon 11-21-2021 GFR >60 Normal [facility] ([place] Comment on above: Result Comment: GFR Population [...] FR, BMP, ABSGEL, ALC, ABOGEL, PRO, APTT ####[address] [address] GFR Non- >60 Normal [facility] ([place] Comment on above: Result Comment: GFR Population [...] FR, BMP, ABSGEL, ALC, ABOGEL, PRO, APTT ####[address] [address] .MDWon 11-21-2021 Monocyte Distribution Width 16.41 Normal 0.00-20.00 [facility] ([place] Comment on above: Result Comment: For ED adult patients suspected of sepsis, MDW<=20.0 does not rule out sepsis or risk of sepsis Performed By: #### G FR, BMP, ABSGEL, ALC, ABOGEL, PRO, APTT #### [address] [address] .NEUABSon 11-21-2021 Neutrophil, Absolute 10.4 10 3/mcL High 2.3-8.1 [facility] ([place]) Comment on above: Performed By: #### G FR, BMP, ABSGEL, ALC, ABOGEL, PRO, APTT #### [address] [address] ABO/Rh (Gel)on 11-21-2021 ABO/Rh Interp Positive Invalid Interpretation Code [facility] ([place] Comment on above: Performed By: #### G FR, BMP, ABSGEL, ALC, ABOGEL, PRO, APTT ####[address] [address] ABS (Gel)on 11-21-2021 ABSC Interp (Gel) Negative Normal [facility] ([place] Comment on above: Performed By: #### G FR, BMP, ABSGEL, ALC, ABOGEL, PRO, APTT ####[address] [address] Bebo 11-21-2021 Ethanol Level <10.0 Normal [facility] ([place] Comment on above: Performed By: #### G FR, BMP, ABSGEL, ALC, ABOGEL, PRO, APTT #### [address] [address] APTTon 11-21-2021 aPTT Coag (Bld) [Time] 25.1 s Normal 25.0-35.0 [facility] ([place]) Comment on above: Result Comment: For Heparin anticoagulation therapy, the recommended therapeutic range is: 54-77 seconds (APTT Correlation with Anti-Xa therapeutic range of 0.3-0.7 units/ml). PLEASE REFERENCE THE PHARMACY PROTOCOL FOR DOSING. Performed By: #### G FR, BMP, ABSGEL, ALC, ABOGEL, PRO, APTT #### [address] [address] Heparin dose (APTT) Unknown Normal [facility] ([place] Comment on above: Performed By: #### G FR, BMP, ABSGEL, ALC, ABOGEL, PRO, APTT #### [address] [address] BMP 11-21-2021 BUN/Creatinine Ratio 19.7 ratio Normal 10.0-22.0 [facility] ([place] Comment on above: Performed By: #### G FR, BMP, ABSGEL, ALC, ABOGEL, PRO, APTT #### [address] [address] Calcium [Mass/Vol] 9.5 mg/dL Normal 8.7-10.4 [facility] ([place]) Comment on above: Performed By: #### G FR, BMP, ABSGEL, ALC, ABOGEL, PRO, APTT #### [address] [address] Chloride [Moles/Vol] 107 mmol/L Normal 98-110 [facility] ([place] Comment on above: Performed By: #### G FR, BMP, ABSGEL, ALC, ABOGEL, PRO, APTT #### [address] [address] CO2 [Moles/Vol] 29 mmol/L Normal 22-32 [facility] ([place] Comment on above: Performed By: #### G FR, BMP, ABSGEL, ALC, ABOGEL, PRO, APTT #### [place] [id number] Creatinine [Mass/Vol] 0.76 mg/dL Normal 0.50-1.20 [facility] ([place]) Comment on above: Performed By: #### G FR, BMP, ABSGEL, ALC, ABOGEL, PRO, APTT #### [place] [address] Electrolyte Balance 5.0 mEq/L Normal 4.0-15.0 [facility] ([place] Comment on above: Performed By: #### G FR, BMP, ABSGEL, ALC, ABOGEL, PRO, APTT #### [place] [address] Glucose [Mass/Vol] 87 mg/dL Normal 82-115 [facility] ([place] Comment on above: Performed By: #### G FR, BMP, ABSGEL, ALC, ABOGEL, PRO, APTT #### [place] [id number] Potassium [Moles/Vol] 3.6 mmol/L Normal 3.5-5.0 [facility] ([place] Comment on above: Result Comment: Spec imen slightly hemolyzed. Performed By: #### G FR, BMP, ABSGEL, ALC, ABOGEL, PRO, APTT #### [place] [id number] Sodium [Moles/Vol] 141 mmol/L Normal 136-145 [facility] ([place] Comment on above: Performed By: #### G FR, BMP, ABSGEL, ALC, ABOGEL, PRO, APTT #### [address] [address] Urea nitrogen [Mass/Vol] 15.0 mg/dL Normal 8.0-22.0 [facility] ([place] Comment on above: Performed By: #### G FR, BMP, ABSGEL, ALC, ABOGEL, PRO, APTT #### [place] [address] CBCon 11-21-2021 Erythrocyte distribution width (RBC) [Ratio] 13.6 % Normal 11.5-15.5 [facility] ([place] Comment on above: Performed By: #### G FR, BMP, ABSGEL, ALC, ABOGEL, PRO, APTT #### [place] [address] Hematocrit (Bld) [Volume fraction] 46.9 % High 34.0-46.0 [facility] ([place] Comment on above: Performed By: #### G FR, BMP, ABSGEL, ALC, ABOGEL, PRO, APTT #### [place] [address] Hgb 15.6 G/dL Normal 12.0-16.0 [facility] ([place] Comment on above: Performed By: #### G FR, BMP, ABSGEL, ALC, ABOGEL, PRO, APTT #### [place] [address] MCH (RBC) [Entitic mass] 30.6 pg Normal 27.0-33.0 [facility] ([place] Comment on above: Performed By: #### G FR, BMP, ABSGEL, ALC, ABOGEL, PRO, APTT #### [place] [address] MCHC 33.2 G/dL Normal 32.0-36.0 [facility] ([place] Comment on above: Performed By: #### G FR, BMP, ABSGEL, ALC, ABOGEL, PRO, APTT #### [place] [address] MCV (RBC) [Entitic vol] 92.1 fL Normal 80.0-99.0 [facility] ([place] Comment on above: Performed By: #### G FR, BMP, ABSGEL, ALC, ABOGEL, PRO, APTT #### [address] [address] Platelet 300 10 3/mcL Normal 150-450 [facility] ([place] Comment on above: Performed By: #### G FR, BMP, ABSGEL, ALC, ABOGEL, PRO, APTT #### [address] [address] Platelet mean volume (Bld) [Entitic vol] 7.1 fL Normal 6.6-10.5 [facility] ([place] Comment on above: Performed By: #### G FR, BMP, ABSGEL, ALC, ABOGEL, PRO, APTT #### [address] [address] RBC 5.09 10 6/mcL Normal 4.10-5.30 [facility] ([place] Comment on above: Performed By: #### G FR, BMP, ABSGEL, ALC, ABOGEL, PRO, APTT #### [address] [address] WBC 14.1 10 3/mcL High 4.5-10.8 [facility] ([place] Comment on above: Performed By: #### G FR, BMP, ABSGEL, ALC, ABOGEL, PRO, APTT #### [address] [address] LABORATORYOrdered By: Argenis Cloud on 11-21-2021 ABO [...] Coag (PPP) [Relative time] 0.9 {INR} Normal [facility] ([place] Comment on above: Result Comment: [employer] (CHEST, 1992, [id number]) recommended therapeutic range for oral anticoagulant therapy is: LOW RISK: Prophylaxis of venous thrombosis INR: 2.0-3.0 Treatment of pulmonary embolism 2.0-3.0 Prevention of systemic embolism 2.0-3.0 HIGH RISK: Mechanical prosthetic valves 2.5-3.5 Performed By: #### G FR, BMP, ABSGEL, ALC, ABOGEL, PRO, APTT #### [address] [address] PT Coag (PPP) [Time] 10.7 s Normal 9.0-14.9 [facility] ([place]) Comment on above: Result Comment: Effe ctive 09/16/07, Protime results may be affected by some antibiotics (i.e. Ciprofloxacin, Azithromycin, Bactrim) which may potentiate the action of oral anticoagulants, with further increases in Protime/INR. Performed By: #### G FR, BMP, ABSGEL, ALC, ABOGEL, PRO, APTT #### [address] [address] XR HIP MINIMUM 2 VIEWS RIGHT on [...] 11/21/2021 9:18:02 PM Ordering Provider: KIAN HEMPHILL [facility] ([place]) Basophil percentageon 2021 Creatinine [Mass/Vol] 1.0 mg/dL 0.55-1.02 [facility] Work Phone: Bilirubin [Mass/Vol] 0.60 mg/dL 0.20-1.00 [facility] Work Phone: Comment on above: For patients on eltr ombopag therapy, use of Dimension [place] TBIL is not recommended. Chloride [Moles/Vol] 103 mmol/L 98-107 [facility] [facility] Work Phone: Glucose [Mass/Vol] 90 mg/dL 74-106 [facility] Work Phone: Potassium [Moles/Vol] 3.9 mmol/L 3.5-5.1 [facility] Work Phone: Protein [Mass/Vol] 7.6 g/dL 6.4-8.2 [facility] Work Phone: Sodium [Moles/Vol] 136 mmol/L 136-145 [facility] Work Phone: WBC (Bld) [#/Vol] 11.6 10*3/uL 4.4-11.0 [facility] Work Phone: Blood erythrocytes count (nu mber/volume)on 11-16-2021 RBC (Bld) [#/Vol] 5.21 10*6/uL 4.2-5.4 [facility] Work Phone: Blood hemoglobin measurement (mass/volume)on 11-16-2021 Hemoglobin (Bld) [Mass/Vol] 16.3 g/dL 12.0-15.0 [facility] Work Phone: Blood platelet mean volumeon 11-16-2021 Platelet mean volume (Bld) [Entitic vol] 9.1 fL 6.2-12.0 [facility] Work Phone: Determination of erythrocyte mean corpuscular volume (MCV)on 11-16-2021 MCV (RBC) [Entitic vol] 94.2 fL 81-99 [facility] Work Phone: Hematocrit Auto (Bld) [Volum e fraction]on 11-16-2021 Hematocrit (Bld) [Volume fraction] 49.1 % 37-47 [facility] Work Phone: Laboratory - Chemistry and C hemistry - challengeon 11-16-2021 GFR/1.73 sq M.predicted among non-blacks MDRD (S/P/Bld) [Vol rate/Area] 57.0000 mL/min/{1.73_m2} >60 [facility] Work Phone: ALP [Catalytic activity/Vol] 70 U/L 45-117 [facility] Work Phone: ALT [Catalytic activity/Vol] 13 U/L 13-56 [facility] Work Phone: CO2 [Moles/Vol] 26.0 mmol/L 21.0-32.0 [facility] Work Phone: Cobalamin (Vitamin B12) [Mass/Vol] 559 pg/mL 211-911 [facility] Work Phone: Globulin (S) [Mass/Vol] 4.0 g/dL 2.2-4.2 [facility] Work Phone: Urea nitrogen/Creatinine [Mass ratio] 19.4 mg/mg 10-20 [facility] Work Phone: Laboratory - Hematology and Cell countson 11-16-2021 Erythrocyte distribution width (RBC) [Entitic vol] 46.0 fL 35.1-43.9 [facility] Work Phone: Erythrocyte distribution width (RBC) [Ratio] 13.3 % 11.6-14.6 [facility] Work Phone: MCH (RBC) [Entitic mass] 31.3 pg 27.0-32.0 [facility] Work Phone: MCHC Auto (RBC) [Mass/Vol]on 11-16-2021 MCHC (RBC) [Mass/Vol] 33.2 g/dL 32-36 [facility] Work Phone: No Panel Informationon 11-16 Estimated GFR (MDRD) Amer 63 mL/min >60 [facility] Work Phone: Comment on above: GFR Calc Estimated GFR (MDRD) Non-Af Amer 52 mL/min >60 [facility] Work Phone: Comment on above: Non- GFR Calc Free Lambda Light Chains, Quant 14.6 mg/L 5.7-26.3 [facility] Work Phone: Thyroid Stimulating Hormone (TSH) 1.00 uIU/mL 0.358-3.74 [facility] Work Phone: Whole Blood Vitamin B1 Level 198.6 nmol/L 66.5-200.0 [facility] Work Phone: Comment on above: Performed at: - L [x+1] [address] [id number] Director: Kash Silva PhD, Phone: [phone] at: [facility] [id number] Director: Julita Pereira MD, Phone: [phone] Platelets bldon 11-16-2021 Platelets (Bld) [#/Vol] 361 10*3/uL 150-450 [facility] Work Phone: Serum immunoglobulin kappa l ight chains/immunoglobulin lambda light chains mass ratioon 11-16-2021 Immunoglobulin light chains.kappa/Immunoglo bulin light chains.lambda (S) [Mass ratio] 1.22 0.26-1.65 [facility] Work Phone: Serum or plasma albumin anat urement (mass/volume)on 11-16-2021 Albumin [Mass/Vol] 3.6 g/dL 3.2-5.0 [facility] Work Phone: Serum or plasma albumin/glob ulin mass ratioon 11-16-2021 Albumin/Globulin [Mass ratio] 0.9 {ratio} 0.9-2.4 [facility] Work Phone: Serum or plasma calcium anat urement (mass/volume)on 11-16-2021 Calcium [Mass/Vol] 9.3 mg/dL 8.5-10.1 [facility] Work Phone: Serum or plasma creatinine m easurement (mass/volume)on 11-16-2021 Creatinine [Mass/Vol] 1.08 mg/dL 0.55-1.02 [facility] Work Phone: Comment on above: The validity of the calculated GFR & GFRAA in patients over 70 years has not been determined. Clinical correlation is essential. Serum or plasma folate measu rement (mass/volume)on 11-16-2021 Folate [Mass/Vol] 15.40 ng/mL 3.1-55.4 [facility] Work Phone: Serum or plasma immunoglobul in kappa light chains measurement (mass/volume)on 11-16-2021 Immunoglobulin light chains.kappa [Mass/Vol] 17.8 mg/L 3.3-19.4 [facility] Work Phone: Serum or plasma urea nitroge n measurement (mass/volume)on 11-16-2021 Urea nitrogen [Mass/Vol] 21 mg/dL 7-18 [facility] Work Phone: Thin prep Papanicolaou smear with manual screeningon 11-16-2021 Thin prep Papanicolaou smear with manual screening 9 U/L 15-37 [facility] Work Phone: Thin prep Papanicolaou smear with manual screening 7 5-15 [facility] Work Phone: No Panel Informationon 08-11 CA 125 Antigen 13.5 U/mL 0.0-38.1 [facility] Work Phone: Comment on above: [employer] El ectrochemiluminescence Immunoassay(ECLIA)Values obtained with different assay methods or kits cannotbe used interchangeably. Results cannot be interpreted asabsolute evidence of the presence or absence of malignantdisease.Performed at: [facility] [id number] Director: Kash Silva PhD, Phone: [phone] CT Abdomen and Pelvis W cont rast IVOrdered By: Ryne Munoz on 08-15-2020 Patient Name: RAMOS LY Computed Tomography ACCESSION EXAM DATE/TIME PROCEDURE ORDERING PROVIDER [id number] 08/15/2020 10:[address] Abdomen/Pelvis w/ IV RYNE MUNOZ Contrast (IV Onl CPT code 42414 Q9967 Reason For Exam (CT Abdomen/Pelvis w/ [...] 11:00 AM EDT Patient Name: RAMOS PADRON [facility] [id number] Computed Tomography ACCESSION EXAM DATE/TIME PROCEDURE ORDERING PROVIDER [id number] 08/15/2020 10:[address] Abdomen/Pelvis w/ IV RYNE MUNOZ Contrast (IV Onl CPT code 85774 Q9967 Reason For Exam (CT Abdomen/Pelvis w/ [...] Abdomen/Pelvis w/ Contrast Patient Name: RAMOS PADRON [facility]#: [id number] Computed Tomography ACCESSION EXAM DATE/TIME PROCEDURE ORDERING PROVIDER [id number] 08/15/2020 10:[address] Abdomen/Pelvis w/ IV ALEXANDER RYNE Contrast (IV Onl CPT code 58326 Q9967 Reason For Exam (CT Abdomen/Pelvis w/ [...] Transcribed Date and Time: 08/15/2020 10:54 Normal [facility] HLA B27 AGon 05-25-2020 HLA B27 RESULT Negative Normal () [facility] Comment on above: Result Comment: HLA- B*27 Negative B27 allele interpretation for all loci based on IMGT/HLA database version 3.38 This test was developed and its performance characteristics determined by [facility]. It has not been cleared or approved by the Food and Drug Administration. [facility] CLIA ID Number [id number] This test was performed using PCR (Polymerase Chain Reaction)/SSOP (Sequence Specific Oligonucleotide Probes) technique. SBT (Sequence Based Typing) and/or SSP (Sequence Specific Primers) may be used as supplemental methods when necessary. Please contact [facility] Customer Service at if you have any questions. Director of HLA Laboratory Dr Berlin Danielle, PhD Performed At: [facility] [address] [place], [place] [id number] Lolis Corona PhD [id number] Performed By: #### L 750.33196 #### [facility] [address] [place] [address] ANAon 05-23-2020 Nuclear Ab IF (S) [Titer] Positive High () [facility] Comment on above: Result Comment: Nega tive <1:80 Borderline 1:80 Positive >1:80 Performed By: #### L 700.88393, L700.41755 #### [facility] [address] [place] [address] Nuclear Ab IF (S) [Titer] 1:80 Normal () [facility] Comment on above: Performed By: #### L 700.41233, L700.45187 #### [facility] [address] [place] [address] Nuclear Ab IF (S) [Titer] Normal [facility] Comment on above: Result Comment: A po sitive MARY result may occur in healthy individuals (low titer) or be associated with a variety of diseases. See interpretation chart which is not all inclusive: Pattern Antigen Detected Suggested Disease Association Homogeneous DNA(ds,ss), SLE - High titers Nucleosomes, Histones Drug-induced SLE Speckled Sm, HUMAN SERVICES PROFESSIONAL, SCL-70, SLE,MCTD,PSS (diffuse form), SS-A/SS-B Sjogrens Nucleolar SCL-70, PM-1/SCL High titers Scleroderma, PM/DM Centromere Centromere PSS (limited form) w/Crest syndrome variable Nuclear Dot Sp100,[id number]-tyhelt Primary Biliary Cirrhosis Nuclear GP210, Primary Biliary Cirrhosis Membrane francis A,B,C Performed At: [facility] [address] [place], [place] [id number] Randall Cancino MD [id number] Performed At: [facility] [address] [id number] Ricardo Hewitt PhD [id number] Performed By: #### L 700.24565, L700.56268 #### [facility] [address] CCP-ABSon 05-23-2020 [facility]ABS 9 units Normal [facility] Comment on above: Result Comment: Nega tive <20 Weak positive 20 - 39 Moderate positive 40 - 59 Strong positive >59 Performed By: #### L 700.72430, L700.13383 #### [facility] [address] [place] [address] MRI Lumbar Spine wo contrast on 12-13-2016 [...] detailed description of findings.Report Dictated on Workstation: [id number] by: Tiara Almanza: 12/13/2016 19:33Read by: Heather CELESTIN: 12/13/2016 19:35 [facility] Comment on above: Order Comment: CONTR AST PER RADIOLOGIST DISCRETION COVID-19 virus antigen assay SARS-CoV-2 (COVID-19) Ag IA.rapid Ql (Resp) [facility] Work Phone: Vital Signs Date Time Vital Sign Value Performing Clinician Facility 12-17-2024 12:29-0400 Body temperature 98.3 [degF] Dmitry Burk MD Work Phone: [facility] 12-17-2024 12:29-0400 Diastolic blood pressure 67 mm[Hg] Dmitry Burk MD Work Phone: [facility] 12-17-2024 12:29-0400 Heart rate 71 /min Dmitry Burk MD Work Phone: [facility] 12-17-2024 12:29-0400 Respiratory rate 16 /min Dmitry Burk MD Work Phone: [facility] 12-17-2024 12:29-0400 SaO2% (BldA) [Mass fraction] 99 % Dmitry Burk MD Work Phone: [facility] 12-17-2024 12:29-0400 Systolic blood pressure 127 mm[Hg] Dmitry Burk MD Work Phone: [facility] 12-17-2024 09:29-0400 Body height 154.94 cm Dmitry Burk MD Work Phone: [facility] 12-17-2024 09:29-0400 Body mass index (BMI) [Ratio] 26.2 kg/m2 Dmitry Burk MD Work Phone: [facility] 12-17-2024 09:29-0400 Body weight 62.9 kg Dmitry Burk MD Work Phone: [facility] 06-18-2024 10:08-0400 Body mass index (BMI) [Ratio] 23.79 kg/m2 Juliet Chanel MD Work Phone: [facility] 06-18-2024 10:08-0400 Body weight 59 kg Juliet Chanel MD Work Phone: [facility] 06-18-2024 10:08-0400 Diastolic blood pressure 67 mm[Hg] Juliet Chanel MD Work Phone: [facility] 06-18-2024 10:08-0400 Heart rate 88 /min Juliet Chanel MD Work Phone: [facility] 06-18-2024 10:08-0400 SaO2% (BldA) [Mass fraction] 96 % Juliet Chanel MD Work Phone: [facility] 06-18-2024 10:08-0400 Systolic blood pressure 100 mm[Hg] Juliet Chanel MD Work Phone: [facility] 01-20-2024 09:51-0500 Body mass index (BMI) [Ratio] 25.6 kg/m2 Juliet Chanel MD Work Phone: [facility] 01-20-2024 09:51-0500 Body weight 63.5 kg Juliet Chanel MD Work Phone: [facility] 01-20-2024 09:51-0500 Diastolic blood pressure 79 mm[Hg] Juliet Chanel MD Work Phone: [facility] 01-20-2024 09:51-0500 Heart rate 83 /min Juliet Chanel MD Work Phone: [facility] 01-20-2024 09:51-0500 SaO2% (BldA) [Mass fraction] 98 % Juliet Chanel MD Work Phone: [facility] 01-20-2024 09:51-0500 Systolic blood pressure 127 mm[Hg] Juliet Chanel MD Work Phone: [facility] 09-16-2023 09:55-0400 Body height 157.5 cm Juilet Chanel MD Work Phone: [facility] 09-16-2023 09:55-0400 Body mass index (BMI) [Ratio] 24.72 kg/m2 Juliet Chanel MD Work Phone: [facility] 09-16-2023 09:55-0400 Body weight 61.3 kg Juliet Chanel MD Work Phone: [facility] 09-16-2023 09:55-0400 SaO2% (BldA) [Mass fraction] 95 % Juliet Chanel MD Work Phone: [facility] 07-04-2023 20:20-0400 Body temperature 97.1 [degF] MD Dmitry Burk Work Phone: [facility] 07-04-2023 20:20-0400 Diastolic blood pressure 64 mm[Hg] MD Dmitry Burk Work Phone: [facility] 07-04-2023 20:20-0400 Heart rate 64 /min MD Dmitry Burk Work Phone: [facility] 07-04-2023 20:20-0400 Respiratory rate 16 /min MD Dmitry Burk Work Phone: [facility] 07-04-2023 20:20-0400 SaO2% (BldA) [Mass fraction] 98 % MD Dmitry Burk Work Phone: [facility] 07-04-2023 20:20-0400 Systolic blood pressure 134 mm[Hg] MD Dmitry Burk Work Phone: [facility] 07-04-2023 19:08-0400 Body mass index (BMI) [Ratio] 26.3 kg/m2 MD Dmitry Burk Work Phone: [facility] 07-04-2023 19:08-0400 Body weight 63.2 kg MD Dmitry Burk Work Phone: [facility] 07-04-2023 18:43-0400 Body height 154.94 cm MD Dmitry Burk Work Phone: [facility] 06-25-2023 17:25-0400 Body temperature 97.7 [degF] MD Dmitry Burk Work Phone: [facility] 06-25-2023 17:25-0400 Diastolic blood pressure 76 mm[Hg] MD Dmitry Burk Work Phone: [facility] 06-25-2023 17:25-0400 Heart rate 89 /min MD Dmitry Burk Work Phone: [facility] 06-25-2023 17:25-0400 Respiratory rate 17 /min MD Dmitry Burk Work Phone: [facility] 06-25-2023 17:25-0400 SaO2% (BldA) [Mass fraction] 97 % MD Dmitry Burk Work Phone: [facility] 06-25-2023 17:25-0400 Systolic blood pressure 124 mm[Hg] MD Dmitry Burk Work Phone: [facility] 06-25-2023 16:18-0400 Body mass index (BMI) [Ratio] 25.4 kg/m2 MD Dmitry Burk Work Phone: [facility] 06-25-2023 16:18-0400 Body weight 62.1 kg MD Dmitry Burk Work Phone: [facility] 06-25-2023 16:12-0400 Body height 156.21 cm MD Dmitry Burk Work Phone: [facility] 05-23-2023 17:06-0400 Body mass index (BMI) [Ratio] 24.1 kg/m2 MD Dmitry Burk Work Phone: [facility] 05-23-2023 17:06-0400 Body weight 59 kg MD Dmitry Burk Work Phone: [facility] 05-23-2023 15:01-0400 Body height 156.21 cm MD Dmitry Burk Work Phone: [facility] 05-23-2023 15:01-0400 Body temperature 97.3 [degF] MD Dmitry Burk Work Phone: [facility] 05-23-2023 15:01-0400 Diastolic blood pressure 84 mm[Hg] MD Dmitry Burk Work Phone: [facility] 05-23-2023 15:01-0400 Heart rate 80 /min MD Dmitry Burk Work Phone: [facility] 05-23-2023 15:01-0400 Respiratory rate 18 /min MD Dmitry Burk Work Phone: [facility] 05-23-2023 15:01-0400 SaO2% (BldA) [Mass fraction] 100 % MD Dmitry Burk Work Phone: [facility] 05-23-2023 15:01-0400 Systolic blood pressure 139 mm[Hg] MD Dmitry Burk Work Phone: [facility] 05-15-2023 07:50-0400 Body height 157.5 cm Juliet Chanel MD Work Phone: [facility] 05-15-2023 07:50-0400 Body weight 63.4 kg Juliet Chanel MD Work Phone: [facility] 05-15-2023 07:50-0400 SaO2% (BldA) [Mass fraction] 97 % Juliet Chanel MD Work Phone: [facility] 02-20-2023 08:54-0500 Body height 156.2 cm Rabia Yovany [employer] Work Phone: [facility] 02-20-2023 08:54-0500 Body mass index (BMI) [Ratio] 25.28 kg/m2 BVG Indiaher [employer]ILITY [employer]ER Work Phone: [facility] 02-20-2023 08:54-0500 Body weight 61.69 kg Rabia Yovany [employer] - [employer]ACILITY DES[employer]ER Work Phone: [facility] 02-20-2023 08:54-0500 Diastolic blood pressure 81 mm[Hg] Rabia Yovany [employer] - [employer]ACILITY DES[employer]ER Work Phone: [facility] 02-20-2023 08:54-0500 Heart rate 68 /min Rabia Yovany [employer] - [employer]ACILITY [employer]ER Work Phone: [facility] 02-20-2023 08:54-0500 Systolic blood pressure 143 mm[Hg] Rabia Yovany [employer] - [employer]ACILITY [employer]ER Work Phone: [facility] 01-15-2023 17:21-0500 Respiratory rate 16 /min [facility] 01-15-2023 16:44-0500 Body mass index (BMI) [Ratio] 26.4 kg/m2 [facility] 01-15-2023 16:44-0500 Body weight 63.3 kg [facility] 01-15-2023 15:18-0500 Body height 154.94 cm [facility] 01-15-2023 15:18-0500 Body temperature 97.5 [degF] [facility] 01-15-2023 15:18-0500 Diastolic blood pressure 87 mm[Hg] [facility] 01-15-2023 15:18-0500 Heart rate 75 /min [facility] 01-15-2023 15:18-0500 SaO2% (BldA) [Mass fraction] 100 % [facility] 01-15-2023 15:18-0500 Systolic blood pressure 159 mm[Hg] [facility] 12-13-2022 07:56-0400 Body height 156.2 cm Maggi Bricetrish [employer] Work Phone: [facility] 12-13-2022 07:56-0400 Body mass index (BMI) [Ratio] 26.21 kg/m2 Maggi Gonzalez [employer]ILITY [employer] Work Phone: [facility] 12-13-2022 07:56-0400 Body temperature 98.29 [degF] Maggi Gonzalez [employer]ILITY [employer] Work Phone: [facility] 12-13-2022 07:56-0400 Body weight 63.96 kg Maggi Gonzalez [employer]ILITY [employer]ER Work Phone: [facility] 12-13-2022 07:56-0400 Diastolic blood pressure 74 mm[Hg] Maggi Gotrish [employer]ILITY [employer] Work Phone: [facility] 12-13-2022 07:56-0400 Heart rate 83 /min Maggi Gotrish [employer]ILITY [employer] Work Phone: [facility] 12-13-2022 07:56-0400 Systolic blood pressure 146 mm[Hg] Maggi Gonzalez [employer]ILITY [employer] Work Phone: [facility] 09-24-2022 09:15-0400 Body height 154.94 cm [facility] 09-24-2022 09:15-0400 Body mass index (BMI) [Ratio] 27.6 kg/m2 [facility] 09-24-2022 09:15-0400 Body temperature 97.2 [degF] [facility] 09-24-2022 09:15-0400 Body weight 66.22 kg [facility] 09-24-2022 09:15-0400 Diastolic blood pressure 69 mm[Hg] [facility] 09-24-2022 09:15-0400 Heart rate 78 /min [facility] 09-24-2022 09:15-0400 Respiratory rate 18 /min [facility] 09-24-2022 09:15-0400 SaO2% (BldA) [Mass fraction] 98 % [facility] 09-24-2022 09:15-0400 Systolic blood pressure 147 mm[Hg] [facility] 09-07-2022 11:34-0400 Diastolic blood pressure 75 mm[Hg] [facility] 09-07-2022 11:34-0400 Heart rate 84 /min [facility] 09-07-2022 11:34-0400 Respiratory rate 16 /min [facility] 09-07-2022 11:34-0400 Systolic blood pressure 184 mm[Hg] [facility] 09-07-2022 09:31-0400 Body mass index (BMI) [Ratio] 30.6 kg/m2 [facility] 09-07-2022 09:31-0400 Body weight 73.48 kg [facility] 09-07-2022 08:49-0400 Body height 154.94 cm [facility] 09-07-2022 08:49-0400 Body temperature 98 [degF] [facility] 09-07-2022 08:49-0400 SaO2% (BldA) [Mass fraction] 92 % [facility] 05-21-2022 09:59-0400 Body height 157.[address] Micheal Betancourt Work Phone: [facility] 05-21-2022 09:59-0400 Body mass index (BMI) [Ratio] 27.8 kg/m2 Dr. Micheal Betancourt Work Phone: [facility] 05-21-2022 09:59-0400 Body temperature 97.1 [degF] Dr. Micheal Betancourt Work Phone: [facility] 05-21-2022 09:59-0400 Body weight 68.[address] Micheal Betancourt Work Phone: [facility] 05-21-2022 09:59-0400 Diastolic blood pressure 78 mm[Hg] Dr. Micheal Betancourt Work Phone: [facility] 05-21-2022 09:59-0400 Heart rate 86 /min Dr. Micheal Betancourt Work Phone: [facility] 05-21-2022 09:59-0400 Respiratory rate 16 /min Dr. Micheal Betancourt Work Phone: [facility] 05-21-2022 09:59-0400 SaO2% (BldA) [Mass fraction] 98 % Dr. Micheal Betancourt Work Phone: [facility] 05-21-2022 09:59-0400 Systolic blood pressure 141 mm[Hg] Dr. Micheal Betancourt Work Phone: [facility] 02-22-2022 09:43-0500 Body temperature 98.2 [degF] Dr. Micheal Betancourt Work Phone: [facility] 02-22-2022 09:43-0500 Diastolic blood pressure 88 mm[Hg] Dr. Micheal Betancourt Work Phone: [facility] 02-22-2022 09:43-0500 Heart rate 85 /min Dr. Micheal Betancourt Work Phone: [facility] 02-22-2022 09:43-0500 Respiratory rate 16 /min Dr. Micheal Betancourt Work Phone: [facility] 02-22-2022 09:43-0500 SaO2% (BldA) [Mass fraction] 97 % Dr. Micheal Betancourt Work Phone: [facility] 02-22-2022 09:43-0500 Systolic blood pressure 138 mm[Hg] Dr. Micheal Betancourt Work Phone: [facility] 12-01-2021 14:00-0400 Body temperature 98.3 [degF] Dr. Micehal Betancourt Work Phone: [facility] 12-01-2021 14:00-0400 Diastolic blood pressure 72 mm[Hg] Dr. Micheal Betancourt Work Phone: [facility] 12-01-2021 14:00-0400 Heart rate 75 /min Dr. Micheal Betancourt Work Phone: [facility] 12-01-2021 14:00-0400 Respiratory rate 18 /min Dr. Micheal Betancourt Work Phone: [facility] 12-01-2021 14:00-0400 SaO2% (BldA) [Mass fraction] 96 % Dr. Micheal Betancourt Work Phone: [facility] 12-01-2021 14:00-0400 Systolic blood pressure 135 mm[Hg] Dr. Micheal Betancourt Work Phone: [facility] 11-28-2021 09:36-0400 Body weight 66.[address] Micheal Betancourt Work Phone: [facility] 11-23-2021 11:45-0400 Body height 157.[address] Micheal Betancourt Work Phone: [facility] 11-22-2021 15:03-0400 Body mass index (BMI) [Ratio] 26.4 kg/m2 Dr. Micheal Betancourt Work Phone: [facility] 11-22-2021 10:53-0400 Body temperature 97.88 [degF] DR JHON ANDREWS MD [address] [place] [address] 11-22-2021 10:53-0400 Diastolic blood pressure 60 mm[Hg] DR JHON ANDREWS MD [address] [place] [address] 11-22-2021 10:53-0400 Heart rate 99 /min DR JHON ANDREWS MD [address] [place] [address] 11-22-2021 10:53-0400 Mean blood pressure 83 mm[Hg] DR JHON ANDREWS MD [address] [place] [address] 11-22-2021 10:53-0400 Reason For Taking VItal Signs DR JHON ANDREWS MD [address] 11-22-2021 10:53-0400 Respiratory rate 16 /min DR JHON ANDREWS MD [address] 11-22-2021 10:53-0400 Systolic blood pressure 129 mm[Hg] DR JHON ANDREWS MD [address] [place] [address] 11-22-2021 07:54-0400 Body temperature 98.42 [degF] DR JHON ANDREWS MD [address] 11-22-2021 07:54-0400 Diastolic blood pressure 72 mm[Hg] DR JHON ANDREWS MD [address] 11-22-2021 07:54-0400 Heart rate 93 /min DR JHON ANDREWS MD [address] [place] [address] 11-22-2021 07:54-0400 Mean blood pressure 94 mm[Hg] DR JHON ANDREWS MD [address] [place] [address] 11-22-2021 07:54-0400 Reason For Taking VItal Signs DR JHON ANDREWS MD [address] 11-22-2021 07:54-0400 Respiratory rate 16 /min DR JHON ANDREWS MD [address] 11-22-2021 07:54-0400 Systolic blood pressure 137 mm[Hg] DR JHON ANDREWS MD [address] [place] [address] 11-22-2021 03:02-0400 Body temperature 98.42 [degF] DR JHON ANDREWS MD [address] [place] [address] 11-22-2021 03:02-0400 Heart rate 90 /min DR JHON ANDREWS MD [address] [place] [address] 11-22-2021 03:02-0400 Respiratory rate 16 /min DR JHON ANDREWS MD [address] [place] [address] 11-21-2021 23:48-0400 Diastolic blood pressure 74 mm[Hg] DR JHON ANDREWS MD [address] [place] [address] 11-21-2021 23:48-0400 Mean blood pressure 89 mm[Hg] DR JHON ANDREWS MD [address] [place] [address] 11-21-2021 23:48-0400 Systolic blood pressure 118 mm[Hg] DR JHON ANDREWS MD [address] 11-21-2021 23:44-0400 Body height 165.[address] JHON ANDREWS MD [address] [place] [address] 11-21-2021 23:44-0400 Body weight [address] JHON ANDREWS MD [address] [place] [address] 11-21-2021 23:44-0400 Body weight 25.68 kg/m2 DR JHON ANDREWS MD [address] 11-21-2021 12:55-0400 Body weight [address] JHON ANDREWS MD [address] [place] [address] 11-21-2021 12:55-0400 Heart rate 75 /min DR JHON ANDREWS MD [address] 11-21-2021 12:04-0400 Diastolic blood pressure 43 mm[Hg] Dr. Micheal Betancourt Work Phone: [facility] Work Phone: 11-21-2021 12:04-0400 Heart rate 55 /min Dr. Micheal Betancourt Work Phone: [facility] Work Phone: 11-21-2021 12:04-0400 Respiratory rate 16 /min Dr. Micheal Betancourt Work Phone: [facility] Work Phone: 11-21-2021 12:04-0400 SaO2% (BldA) [Mass fraction] 97 % Dr. Micheal Betancourt Work Phone: [facility] Work Phone: 11-21-2021 12:04-0400 Systolic blood pressure 128 mm[Hg] Dr. Micheal Betancourt Work Phone: [facility] Work Phone: 11-21-2021 09:12-0400 Body height 157.[address] Micheal Betancourt Work Phone: [facility] Work Phone: 11-21-2021 09:12-0400 Body mass index (BMI) [Ratio] 28 kg/m2 Dr. Micheal Betancourt Work Phone: [facility] Work Phone: 11-21-2021 09:12-0400 Body temperature 97.8 [degF] Dr. Micheal Betancourt Work Phone: [facility] Work Phone: 11-21-2021 09:12-0400 Body weight 69.[address] Micheal Betancourt Work Phone: [facility] Work Phone: 11-09-2021 09:11-0400 Body mass index (BMI) [Ratio] 27.3 kg/m2 Dr. Micheal Betancourt Work Phone: [facility] Work Phone: 11-09-2021 09:11-0400 Body temperature 98.6 [degF] Dr. Micheal Betancourt Work Phone: [facility] Work Phone: 11-09-2021 09:11-0400 Body weight 67.[address] Micheal Betancourt Work Phone: [facility] Work Phone: 11-09-2021 09:11-0400 Diastolic blood pressure 90 mm[Hg] Dr. Micheal Betancourt Work Phone: [facility] Work Phone: 11-09-2021 09:11-0400 Heart rate 78 /min Dr. Micheal Betancourt Work Phone: [facility] Work Phone: 11-09-2021 09:11-0400 Respiratory rate 16 /min Dr. Micheal Betancourt Work Phone: [facility] Work Phone: 11-09-2021 09:11-0400 SaO2% (BldA) [Mass fraction] 99 % Dr. Micheal Betancourt Work Phone: [facility] Work Phone: 11-09-2021 09:11-0400 Systolic blood pressure 148 mm[Hg] Dr. Micheal Betancourt Work Phone: [facility] Work Phone: 10-19-2021 09:24-0400 Body height 157.[address] Micheal Betancourt Work Phone: [facility] Work Phone: 10-19-2021 09:24-0400 Body mass index (BMI) [Ratio] 27.4 kg/m2 Dr. Micheal Betancourt Work Phone: [facility] Work Phone: 10-19-2021 09:24-0400 Body temperature 97.3 [degF] Dr. Micheal Betancourt Work Phone: [facility] Work Phone: 10-19-2021 09:24-0400 Body weight 68.[address] Micheal Betancourt Work Phone: [facility] Work Phone: 10-19-2021 09:24-0400 Diastolic blood pressure 80 mm[Hg] Dr. Micheal Betancourt Work Phone: [facility] Work Phone: 10-19-2021 09:24-0400 Heart rate 98 /min Dr. Micheal Betancourt Work Phone: [facility] Work Phone: 10-19-2021 09:24-0400 Respiratory rate 18 /min Dr. Micheal Betancourt Work Phone: [facility] Work Phone: 10-19-2021 09:24-0400 SaO2% (BldA) [Mass fraction] 74 % Dr. Micheal Betancourt Work Phone: [facility] Work Phone: 10-19-2021 09:24-0400 Systolic blood pressure 167 mm[Hg] Dr. Micheal Betancourt Work Phone: [facility] Work Phone: 10-17-2021 11:38-0400 Respiratory rate 16 /min Dr. Micheal Betancourt Work Phone: [facility] Work Phone: 10-17-2021 09:35-0400 Body height 157.[address] Micheal Betancourt Work Phone: [facility] Work Phone: 10-17-2021 09:35-0400 Body mass index (BMI) [Ratio] 27.3 kg/m2 Dr. Micheal Betancourt Work Phone: [facility] Work Phone: 10-17-2021 09:35-0400 Body temperature 97.2 [degF] Dr. Micheal Betancourt Work Phone: [facility] Work Phone: 10-17-2021 09:35-0400 Body weight [address] Micheal Betancourt Work Phone: [facility] Work Phone: 10-17-2021 09:35-0400 Diastolic blood pressure 92 mm[Hg] Dr. Micheal Betancourt Work Phone: [facility] Work Phone: 10-17-2021 09:35-0400 Heart rate 88 /min Dr. Micheal Betancourt Work Phone: [facility] Work Phone: 10-17-2021 09:35-0400 SaO2% (BldA) [Mass fraction] 96 % Dr. Micheal Betancourt Work Phone: [facility] Work Phone: 10-17-2021 09:35-0400 Systolic blood pressure 129 mm[Hg] Dr. Micheal Betancourt Work Phone: [facility] Work Phone: 09-21-2021 15:09-0400 Body height 157.[address] Micheal Betancourt Work Phone: [facility] Work Phone: 12-07-2019 15:38-0400 BMI (Body Mass Index) 30.06 kg/m2 [facility] Work Phone: 12-07-2019 15:38-0400 Body Temperature 96.9 [degF] [facility] Work Phone: Comment on above: Method: Infrared 12-07-2019 15:38-0400 Body weight 73.95 kg [facility] Work Phone: 12-07-2019 15:38-0400 BP Diastolic 80 mm[Hg] [facility] Work Phone: Comment on above: Patient Position: Sitting; Cuff Location : Left Arm; Cuff Size: Standard 12-07-2019 15:38-0400 BP Systolic 128 mm[Hg] Janine Rice [facility] Internal Medicine Work Phone: Comment on above: Patient Position: Sitting; Cuff Location : Left Arm; Cuff Size: Standard 12-07-2019 15:38-0400 BSA (Body Surface Area) 1.75 m2 [facility] Work Phone: 12-07-2019 15:38-0400 Height 156.84 cm [facility] Work Phone: 12-07-2019 15:38-0400 Pulse (Heart Rate) 89 /min Janine Rice [facility] Internal Medicine Work Phone: Comment on above: Pattern: Regular 12-07-2019 15:38-0400 Pulse Oximetry 97 % [facility] Work Phone: Comment on above: Room air 12-07-2019 15:38-0400 Respiratory Rate 16 /min Janine Rice [facility] Internal Medicine Work Phone: Comment on above: Pattern: Unlabored Encounters Encounter Date Encounter Type Care Provider Facility Start: 12-17-2024 End: 12-17-2024 Emergency department patient visit Dr. John Webb DO -Emergency Department Work Phone: Start: 09-08-2024 Registered Referred Demetrio Hemphill MD - [facility] Start: 09-08-2024 End: 09-08-2024 ambulatory [facility] Facility:[facility] Start: 06-18-2024 End: 06-18-2024 Office outpatient visit 25 minutes Juliet Chanel MD Work Phone: Neurology Comment on above: PSP (progressive sup ranuclear palsy) ([facility]) Start: 06-18-2024 End: 06-18-2024 ambulatory [facility] Facility[facility] Start: 03-23-2024 End: 03-23-2024 Telephone encounter Ryne Munoz MD Work Phone: [facility]ologic [facility] [place] Start: 03-09-2024 End: 03-09-2024 ambulatory Micheal Mollison Facility:[facility] Start: 02-07-2024 End: 02-07-2024 ambulatory Taty Nurya SRIDEVI Facility:[facility] Start: 01-31-2024 ambulatory Taty Nurya SRIDEVI Facili ty:[facility] Start: 01-27-2024 End: 01-27-2024 ambulatory Micheal Mollison Facility:[facility] Start: 01-24-2024 End: 01-24-2024 Emergency department patient visit John Webb Facility:[facility] Start: 01-23-2024 End: 01-23-2024 ambulatory Taty Arringtona SRIDEVI Facility:[facility] Start: 01-22-2024 End: 01-22-2024 Emergency department patient visit L[place] Facility:[facility] Start: 01-20-2024 End: 01-20-2024 ambulatory DMITRY BURK Facility:[facility] Start: 01-20-2024 End: 01-20-2024 Office outpatient visit 40 minutes Juliet Chanel MD Work Phone: Neurology Comment on above: PSP (progressive sup ranuclear palsy) (HCC) Start: 11-08-2023 End: 11-08-2023 Patient encounter procedure Jesenia James PT, DPT Work Phone: [facility] Outpatient Physical Therapy Comment on above: 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); Imbalance; Abnormality of gait; Falls frequently Start: 11-08-2023 End: 11-08-2023 ambulatory Jesenia James PT, DPT Work Phone: [facility] Outpatient Physical Therapy Start: 10-03-2023 Telephone encounter Elicia hansen Research Coordinator Work Phone: [facility] Start: 10-02-2023 Telephone encounter Scotty marshall Research Coordinator Work Phone: [facility] Comment on above: Research (IRB [id number] ) Start: 09-25-2023 Telephone encounter Scotty marshall Research Coordinator Work Phone: [facility] Comment on above: Research (Asked for call back regarding [place] Study) Start: 09-23-2023 Telephone encounter Scotty marshall Research Coordinator Work Phone: [facility] Comment on above: Research (LVM for Or ion trial ) Start: 09-17-2023 Telephone encounter Scotty Shepard joanna Research Coordinator Work Phone: [facility] Comment on above: Research (Spoke with Ramos about PSP trial information. 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); Imbalance; Abnormality of gait; Falls frequently Start: 08-09-2023 End: 08-09-2023 ambulatory Jesenia James PT, DPT Work Phone: [facility] Start: 07-17-2023 End: 07-17-2023 Patient encounter procedure Lyssa [place]emp [employer] Work Phone: [facility] Comment on above: 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); Imbalance; Abnormality of gait; Falls frequently Start: 07-17-2023 End: 07-17-2023 ambulatory Lyssa [place] [employer] Work Phone: [facility] Start: 07-15-2023 Telephone encounter Juliet rosales MD Work Phone: Neurology Comment on above: Insurance Authorizat ion (Sinemet ) Start: 07-15-2023 Registered Recurring MD Dmitry Burk Work Phone: [facility]-Physical Therapy Work Phone: Start: 07-12-2023 End: 07-12-2023 ambulatory Lyssa [place] [employer] Work Phone: [facility] Start: 07-12-2023 End: 07-12-2023 Patient encounter procedure Lyssa HidalgoAidan [employer] Work Phone: [facility] Comment on above: 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); Imbalance; Abnormality of gait; Falls frequently Start: 07-12-2023 Patient encounter procedure MD Dmitry Burk Work Phone: [facility] Work Phone: Start: 07-10-2023 Telephone encounter Juliet rosales MD Work Phone: [facility] Comment on above: Clarify Sinemet Start: 07-05-2023 End: 07-05-2023 Patient encounter procedure Lyssa Wallace [employer] Work Phone: [facility] Comment on above: 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); Imbalance; Abnormality of gait; Falls frequently Start: 07-05-2023 End: 07-05-2023 ambulatory Lyssa Wallace [employer] Work Phone: [facility] Start: 07-04-2023 End: 07-04-2023 Emergency department patient visit MD Dmitry Burk Work Phone: [facility]-Emergency Department Work Phone: Start: 06-28-2023 End: 06-28-2023 Patient encounter procedure Jesenia James PT, DPT Work Phone: [facility] Physical Therapy Comment on above: 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); Imbalance; Abnormality of gait; Falls frequently Start: 06-28-2023 End: 06-28-2023 ambulatory Jesenia James PT, DPT Work Phone: [facility] Therapy Start: 06-27-2023 End: 06-27-2023 Patient encounter procedure MD Dmitry Burk Work Phone: [facility] Work Phone: Start: 06-25-2023 End: 06-25-2023 Emergency department patient visit MD Dmitry Burk Work Phone: [facility]-Emergency Department Work Phone: Start: 06-24-2023 End: 06-24-2023 ambulatory MD Dmitry Burk Work Phone: [facility] Work Phone: Start: 06-24-2023 End: 06-24-2023 Discharged Recurring MD Dmitry Burk Work Phone: [facility]-Occupational Therapy Work Phone: Start: 06-24-2023 Registered Recurring MD Dmitry Burk Work Phone: [facility]-Occupational Therapy Work Phone: Start: 06-21-2023 End: 06-21-2023 ambulatory Lyssa Wallace [employer] Work Phone: [facility] Comment on above: 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); Imbalance; Abnormality of gait; Falls frequently Start: 06-14-2023 End: 06-14-2023 ambulatory Lyssa HidalgoAidan [employer] Work Phone: [facility] Comment on above: 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); Imbalance; Abnormality of gait; Falls frequently Start: 06-10-2023 Registered Recurring MD Dmitry Burk Work Phone: [facility]-Occupational Therapy Work Phone: Start: 06-07-2023 End: 06-07-2023 ambulatory JULIET YANIQUE Facility:[facility] Comment on above: 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); Imbalance; Abnormality of gait; Falls frequently Start: 05-29-2023 End: 05-29-2023 ambulatory MD Dmitry Burk Work Phone: [facility] Work Phone: Start: 05-29-2023 End: 05-29-2023 Patient encounter procedure MD Dmitry Burk Work Phone: [facility] Work Phone: Start: 05-27-2023 End: 05-27-2023 ambulatory Jesenia James PT, DPT Work Phone: [facility] Out[facility] Physical Therapy Comment on above: Imbalance (Primary D x); PSP (progressive supranuclear palsy) (HCC); Abnormality of gait; Falls frequently Start: 05-23-2023 End: 05-23-2023 Emergency department patient visit MD Dmitry uBrk Work Phone: [facility]-Emergency Department Work Phone: Start: 05-20-2023 End: 05-20-2023 Patient encounter procedure MD Dmitry Burk Work Phone: [facility] Work Phone: Start: 05-15-2023 End: 05-15-2023 Patient encounter procedure Juliet Chanel MD Work Phone: Neurology Comment on above: 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) Start: 05-03-2023 End: 05-03-2023 Patient encounter procedure MD Dmitry Burk Work Phone: [facility] Work Phone: Start: 05-03-2023 End: 05-03-2023 ambulatory MD Dmitry Burk Work Phone: [facility] Work Phone: Start: 05-03-2023 End: 05-03-2023 Discharged Recurring MD Dmitry Burk Work Phone: [facility]-Speech Therapy Work Phone: Start: 05-03-2023 Registered Recurring MD Dmitry Burk Work Phone: [facility]-Speech Therapy Work Phone: Start: 04-30-2023 End: 04-30-2023 ambulatory MD Dmitry Burk Work Phone: [facility] Work Phone: Start: 04-30-2023 End: 04-30-2023 Patient encounter procedure MD Dmitry Burk Work Phone: [facility]-Radiology, [place] Work Phone: Start: 03-12-2023 Telephone encounter Rabia villalta [employer] - FACILITY DESIGNER Work Phone: [facility] Gynecologic Oncology Comment on above: Results Start: 03-06-2023 End: 03-06-2023 Patient encounter procedure MD Dmitry Burk Work Phone: [facility]-Laboratory, [place] Work Phone: Start: 02-20-2023 End: 02-20-2023 Office outpatient visit 15 minutes Rabia Pedroza [employer] - FACILITY DESIGNER Work Phone: [facility] Gynecologic Oncology Comment on above: Endometrial cancer ( CMS/HCC) (HCC) (Primary Dx) Start: 01-15-2023 End: 01-15-2023 Emergency department patient visit [facility]-Emergency Department Work Phone: Start: 12-13-2022 ambulatory [facility] Facility:[facility] Start: 12-13-2022 End: 12-13-2022 Office outpatient visit 25 minutes Maggi Gonzalez [employer]-FACILITY DESIGNER Work Phone: [facility] [place] Comment on above: PSP (progressive sup ranuclear palsy) (Primary Dx) Start: 12-10-2022 End: 12-10-2022 Discharged Recurring [facility]-Physical Therapy Work Phone: Start: 11-13-2022 ambulatory [facility] Facility :[facility] Start: 09-24-2022 End: 09-24-2022 Emergency department patient visit [facility]-Emergency Department Work Phone: Start: 09-12-2022 End: 09-12-2022 ambulatory [facility] Work Phone: Start: 09-12-2022 End: 09-12-2022 Patient encounter procedure [facility] Start: 09-07-2022 End: 09-07-2022 Emergency department patient visit [facility]-Emergency Department Work Phone: Start: 09-03-2022 ambulatory [facility] Facility:[facility] Start: 08-20-2022 End: 08-20-2022 ambulatory [facility] Work Phone: Start: 08-20-2022 End: 08-20-2022 Patient encounter procedure [facility] Start: 08-11-2022 End: 08-11-2022 ambulatory [facility] Work Phone: Start: 08-11-2022 End: 08-11-2022 Patient encounter procedure [facility] Start: 08-08-2022 End: 08-08-2022 Discharged Recurring [facility]-Physical Therapy Work Phone: Start: 08-08-2022 Registered Recurring [facility]-Physical Therapy Start: 08-08-2022 End: 08-08-2022 Patient encounter procedure [facility] Start: 07-24-2022 End: 07-24-2022 ambulatory [facility] Work Phone: Start: 07-24-2022 End: 07-24-2022 Patient encounter procedure [facility] Start: 05-25-2022 End: 05-25-[address] Micheal Betancourt Work Phone: [facility] Work Phone: Start: 05-25-2022 End: 05-25-[address] Micheal Betancourt Work Phone: [facility] Start: 05-21-2022 End: 05-21-2022 Emergency department patient visit Dr. Micheal Betancourt Work Phone: [facility]-Emergency Department Start: 04-30-[address] Micheal Betancourt Work Phone: [facility]-Physical Therapy Start: 03-22-2022 End: 03-22-[address] Micheal Betancourt Work Phone: [facility] Work Phone: Start: 03-22-2022 End: 03-22-[address] Micheal Betancourt Work Phone: [facility]-Physical Therapy Start: 03-19-2022 End: 03-19-[address] Micheal Betancourt Work Phone: [facility] Start: 03-16-2022 End: 03-16-[address] Micheal Betancourt Work Phone: [facility] Start: 02-22-2022 End: 02-22-[address] Micheal Betancourt Work Phone: [facility] Start: 02-19-2022 End: 02-19-[address] Micheal Betancourt Work Phone: [facility] Work Phone: Start: 02-19-2022 End: 02-19-[address] Micheal Betancourt [facility] Start: 02-06-2022 End: 02-06-[address] Micheal Betancourt Work Phone: [facility] Work Phone: Start: 02-06-2022 End: 02-06-[address] Micheal Betancourt Work Phone: [facility] Start: 12-14-2021 End: 12-14-[address] Micheal Betancourt Work Phone: [facility] Radiology Start: 12-12-2021 End: 12-13-2021 ambulatory JHON ANDREWS Facility:[facility] Start: 12-12-2021 End: 12-12-[address] JHON ANDREWS MD [facility] Start: 11-22-2021 End: 12-02-2021 Evaluation and management of inpatient Dr. Micheal Betancourt Work Phone: [facility]-Transitional Care Unit Start: 11-21-2021 End: 11-22-2021 Evaluation and management of inpatient MICHEAL BETANCOURT Facility:[facility] Start: 11-21-2021 End: 11-22-2021 Evaluation and management of inpatient DR JHON ANDREWS MD [facility] Start: 11-21-2021 End: 11-21-2021 Emergency department patient visit Dr. Micheal Betancourt Work Phone: [facility]-Emergency Department Start: 11-16-2021 End: 11-16-[address] Micheal Betancourt Work Phone: [facility] Start: 11-09-2021 End: 11-09-[address] Micheal Betancourt Work Phone: [facility] Neurology Start: 10-19-2021 End: 10-19-2021 Emergency department patient visit Dr. Micheal Betancourt Work Phone: [facility]-Emergency Department Start: 10-17-2021 End: 10-17-2021 Emergency department patient visit Dr. Micheal Betancourt Work Phone: [facility]-Emergency Department Start: 10-02-2021 End: 10-02-[address] Micheal Betancourt Work Phone: [facility]-Physical Therapy Start: 09-21-2021 End: 09-21-[address] Micheal Betancourt Work Phone: [facility]-Outpatient Bone Densitometry Start: 09-20-[address] Micheal Betancourt Work Phone: [facility]-Physical Therapy Start: 09-06-2021 End: 09-06-[address] Micheal Betancourt Work Phone: [facility] Start: 08-31-2021 End: 08-31-[address] Micheal Betancourt Work Phone: [facility]-Physical Therapy Start: 08-21-[address] Micheal Betancourt [facility] Start: 08-11-2021 End: 08-11-[address] Micheal Betancourt Work Phone: [facility] Start: 07-27-2021 End: 07-27-[address] Micheal Betancourt Work Phone: [facility]-Physical Therapy Start: 07-11-2021 End: 07-11-[address] Micheal Betancourt Work Phone: [facility]-Outpatient Breast Imaging Start: 05-08-2021 End: 05-08-[address] Micheal Betancourt Work Phone: [facility] [facility] Orthopaedic [facility] Start: 04-28-2021 End: 04-28-[address] Micheal Betancourt Work Phone: [facility] Radiology Start: 08-15-2020 End: 08-15-2020 Subsequent hospital visit by physician Ryne Munoz MD Work Phone: [facility] Comment on above: Malignant neoplasm o f endometrium (HCC) Start: 12-07-2019 End: 12-07-2019 Office outpatient visit 5 minutes Janine Krystal [facility] Internal Medicine Start: 12-13-2016 End: 12-13-2016 Ambulatory [facility] Facility:[facility] MRI Procedures Date Procedure Procedure Detail Performing [...] 05-21-2022 CT of lumbar spine Dr. Micheal Betancourt Work Phone: Start: 03-19-2022 Plain x-ray of [...] CT Lung Screening Comments: See Note; NOTES: [facility] Imaging Services [address] [place] [address] Lung Screening MR#: [id number] Acct: [id number] Name: RAMOS PADRON Rep #: [id number] : 1945 F 74 From: Gabino Bhakta MD PCP: MARYELLNE ReddyC Status: [facility] CLI Study: Low Dose CT Lung Screening Date of Exam: 12/07 Exam# [id number] Ordering Dr: Elizabeth Crandall NP GUM MIXER -Cj STUDY: CT CHEST WITHOUT CONTRAST- LOW [...] support , CC: LUPE Rice; LUPE Crandall Quality Assurance Assistant: Signed Janine Rice Start: 12-08-2019 End: 12-08-2019 Oncology Visit Report Comments: See Note; NOTES: [facility] [address] [address] OFFICE VISIT Date of Service: 12/08/19 1203 MR#: [id number] Acct: [id number] Name: RAMOS PADRON Rep #: [id number] : 1945 From: Elizabeth Barnhart Age/Sex: 74/F Location: [facility] Status: Signed HPI HPI Reviewed eligibility criteria: [...] acute distress Orientation: alert, awake, oriented x3 [facility] Head: normocephalic, atraumatic Neck Neck: trachea midline, [...] 12/08/19 @ 14:06 by Elizabeth Crandall NP, GUM MIXER-C) Smoking Status: Former smoker quit date: 01/02/15 [...] 1406 <Electronically signed by Elizabeth Crandall NP GUM MIXER-C> Date Elizabeth Crandall NP GUM MIXER-C Cosigner Signature: Date (if applicable) CC: Dr. Micheal Betancourt MD; Dr. Ryne Munoz MD Janine Rice 2014- Had cancer surgery- then had chemo after that Jalen Andrews Hysterectomy Jalen Andrews Comment on above: in 2013- Dr. Mariano Ball- [facility] Hysterectomy DR JHON Blas Insertion of [...] DTaP/Tdap/Td Vaccines (3 - Td or Tdap) [facility] Start: 09-07-2032 DTaP/Tdap/Td Vaccine s (4 - Td or Tdap) DTaP/Tdap/Td Vaccines (4 - Td or Tdap) [facility] Start: 09-07-2032 Tetanus vaccination TETANUS [facility] Start: 09-07-2032 Urine microalbumin profile [facility] Start: 04-16-2027 Diabetes Screening Diabetes Screenin g [facility] Start: 12-24-2024 End: 12-24-2024 Patient encounter procedure 12/24/2024 10:00 AM EDT Office Visit Neurology [address] [phone] Juliet Chanel MD [address] [address] 6 month follow up - 60 min per [facility] Neurology Comment on above: 6 month follow up - 60 min per [facility] Start: 12-17-2024 Simple repair f/e/e/n/l/m 2.6cm-5.0 cm RPR F/E/E/N/L/M 2.6-5.0 CM [facility] Start: 12-17-2024 [facility] Start: 06-18-2024 End: 06-18-2024 Patient encounter procedure 06/18/2024 10:00 AM EDT Office Visit Neurology [address] [phone] Juliet Chanel MD [address] [address] 5 month follow up (around 06/19/2024). 60 minutes per [facility] Neurology Comment on above: 5 month follow up (a round 06/19/2024). 60 minutes per [facility] Start: 04-01-2024 End: 04-01-2024 Patient encounter procedure 04/01/2024 1:30 PM EST Office Visit [facility] Gynecologic Oncology - [place] [address] [place] [address] Ryne Munoz MD [address] [facility] [place] [address] [place] [address] [facility] Gynecologic Oncology - [place] Start: 03-04-2024 Advance Directive Discussion Advance Directive Discussion [facility] Start: 02-21-2024 End: 02-21-2024 Patient encounter procedure 02/21/2024 9:30 AM EST Office Visit [facility] Gynecologic Oncology [address] [facility] [address] [place] [address] YovanyLaraen, CONCRETE BUCKET HOOKER - FACILITY DESIGNER [address] [facility] [facility] [address] [place] [address] [facility] Gynecologic Oncology Start: 01-20-2024 End: 01-20-2024 Patient encounter procedure 01/20/2024 10:00 AM EST Office Visit Neurology [address] [phone] Juliet Chanel MD [address] [address] Return in about 4 months (around 01/17/2024). 60 minutes per [facility] Neurology Comment on above: Return in about 4 mo nths (around 01/17/2024). 60 minutes per [facility] Start: 11-08-2023 End: 11-08-2023 Patient encounter procedure 11/08/2023 10:00 AM EDT OT/PT/Speech Visit [facility] Outpatient Physical Therapy [address] [place] [address] Jesenia James, PT, DPT [address] [place] [address] Gait Abnormality [facility] Outpatient Physical Therapy Comment on above: Gait Abnormality Start: 11-03-2023 Covid-19 Vaccine ( season) Covid-19 Vaccine ( season) [facility] Start: 11-03-2023 Covid-19 Vaccine ( season) Covid-19 Vaccine ( season) [facility] Start: 11-03-2023 Influenza vaccination Influenza Vacc ine (#1) [facility] Start: 09-16-2023 End: 09-16-2023 Patient encounter procedure 09/16/2023 10:00 AM EDT Office Visit Neurology [address] [phone] Juliet Chanel MD [address] [address] 3 month follow up Neurology Comment on above: 3 month follow up Start: 08-09-2023 End: 08-09-2023 Patient encounter procedure 08/09/2023 2:00 PM EDT OT/PT/Speech Visit [facility] Outpatient Physical Therapy [address] [place] [address] Jesenia James, PT, DPT [address] [place] [address] [facility] Outpatient Physical Therapy Comment on above: RECHECK Start: 07-26-2023 End: 07-26-2023 Patient encounter procedure 07/26/2023 2:00 PM EDT OT/PT/Speech Visit [facility] Outpatient Physical Therapy [address] [place] [address] Jesenia James, PT, DPT [address] [place] [address] [facility] Outpatient Physical Therapy Comment on above: RECHECK Start: 07-17-2023 End: 07-17-2023 Patient encounter procedure 07/17/2023 10:45 AM EDT OT/PT/Speech Visit [facility] Outpatient Physical Therapy [address] [place] [address] Lyssa Kemp, COUNTY DIRECTOR WELFARE [address] [place] [address] Gait Abnormality [facility] Outpatient Physical Therapy Comment on above: Gait Abnormality Start: 07-15-2023 End: 07-15-2023 Patient encounter procedure 07/15/2023 12:15 PM EDT OT/PT/Speech Visit [facility] Outpatient Physical Therapy [address] [place] [address] Tyrone'Lyssa Bermudez, COUNTY DIRECTOR WELFARE [address] [place] [address] Gait Abnormality [facility] Outpatient Physical Therapy Comment on above: Gait Abnormality Start: 07-12-2023 Acid Fast Bacilli Culture Acid Fast Bacilli Culture [facility] Start: 07-12-2023 Acid Fast Bacilli Smear Acid Fast Ba cilli Smear [facility] Start: 07-12-2023 End: 07-12-2023 Patient encounter procedure 07/12/2023 10:45 AM EDT OT/PT/Speech Visit [facility] Outpatient Physical Therapy [address] [place] [address] Lyssa Kemp, COUNTY DIRECTOR WELFARE [address] [place] [address] Gait Abnormality [facility] Outpatient Physical Therapy Comment on above: Gait Abnormality Start: 07-05-2023 End: 07-05-2023 Patient encounter procedure 07/05/2023 10:00 AM EDT OT/PT/Speech Visit [facility] Outpatient Physical Therapy [address] [place] [address] Lyssa Kemp, COUNTY DIRECTOR WELFARE [address] [place] [address] Gait Abnormality [facility] Outpatient Physical Therapy Comment on above: Gait Abnormality Start: 07-04-2023 [facility] Start: 06-27-2023 Patient referral [facility] Work Phone: Start: 06-25-2023 [facility] Start: 05-23-2023 [facility] Start: 05-20-2023 End: 05-20-2023 Patient encounter procedure 05/20/2023 11:00 AM EDT Office Visit [facility] [address] [place] [phone] Jazmyn Boyd, CONCRETE BUCKET HOOKER-FACILITY DESIGNER [address] [place] [address] [facility] Start: 03-04-2023 Advance Directive Discussion Advance Directive Discussion [facility] Start: 03-04-2023 Depression Assessment Depression Ass essment [facility] Start: 02-20-2023 End: 02-21-2024 CA 125 CA 125 Lab Routine Endometrial cancer (CMS/HCC) (HCC) Expected: 02/20/2023 (Approximate), Expires: 02/21/2024 [facility] Work Phone: Comment on above: Expected: 02/20/2023 (Approximate), Expires: 02/21/2024 Start: 11-02-2022 COVID-19 Vaccine () COVID-19 Vaccine () [facility] Start: 11-02-2022 Influenza vaccination INFLUENZA VACC INE (#1) [facility] Start: 09-24-2022 Simple repair f/e/e/n/l/m 2.6cm-5.0 cm RPR F/E/E/N/L/M 2.6-5.0 CM [facility] Start: 09-07-2022 Simple repair f/e/e/n/l/m 2.5cm/< RPR F/E/E/N/L/M 2.5 CM/< [facility] Start: 03-19-2022 Patient referral [facility] Work Phone: Start: 03-16-2022 Patient referral [facility] Work Phone: Start: 12-21-2021 Blood chemistry [facility] Work Phone: Start: 12-14-2021 Blood chemistry [facility] Work Phone: Start: 12-07-2021 Blood chemistry [facility] Work Phone: Start: 12-03-2021 Patient referral [facility] Work Phone: Start: 12-02-2021 Patient discharge [facility] Start: 12-01-2021 Development of care plan [facility] Start: 11-24-2021 Speech therapy management [facility] Start: 11-23-2021 Development of care plan [facility] Start: 11-23-2021 Developing a treatme nt plan [facility] Start: 11-23-2021 Speech therapy management [facility] Start: 11-23-2021 Speech therapy assessment [facility] Start: 11-22-2021 Following clinical pathway protocol [facility] Start: 11-22-2021 Wound care [facility] Start: 11-22-2021 Admission procedure [facility] Start: 11-22-2021 Measuring intake and output [facility] Start: 11-22-2021 Patient referral to dietitian [facility] Start: 11-22-2021 Referral to occupational therapist [facility] Start: 11-22-2021 Referral to service [facility] Start: 11-22-2021 Vital signs measurements [facility] Start: 11-22-2021 End: 11-22-2021 [facility] Start: 11-22-2021 Removal of device [facility] Start: 11-21-2021 Simple repair f/e/e/n/l/m 2.5cm/< RPR F/E/E/N/L/M 2.5 CM/< [facility] Work Phone: Start: 11-16-2021 [place] and lambda lig ht chains [facility] Work Phone: Start: 11-16-2021 Thiamine measurement [facility] Work Phone: Start: 11-09-2021 Patient referral [facility] Work Phone: Start: 02-08-2021 End: 02-08-2021 Patient encounter procedure 02/08/2021 Office Visit Gynecologic Oncology Ryne Munoz MD [address] [facility] [place] [address] [facility] Gynecologic Oncology [place] Start: 11-02-2020 Influenza vaccination Flu vacc ine (Season Ended) [facility] Work Phone: Start: 2020 RSV Immunization for Adults (1 - 1-dose 75+ series) RSV Immunization for Adults (1 - 1-dose 75+ series) [facility] Start: 12-07-2019 Procedure Education Eprescribe d prescriptions (G8553) [facility] Work Phone: Start: 08-24-2018 Annual Wellness Visi t (AWV) Annual Wellness Visit (AWV) [facility] Work Phone: Start: 2010 Pneumococcal 65+ yea rs Vaccine (1 of 1 - PPSV23) Pneumococcal 65+ years Vaccine (1 of 1 - PPSV23) [facility] Work Phone: Start: 2010 Pneumococcal vaccination PNEUMOCOCCAL VACCINE SERIES (1 - PCV) [facility] Start: 2010 Pneumococcal Vaccine : 65+ (1 of 1 - PCV) Pneumococcal Vaccine: 65+ (1 of 1 - PCV) [facility] Start: 2010 Pneumococcal Vaccine : 65+ Years (1 of 1 - PCV) Pneumococcal Vaccine: 65+ Years (1 of 1 - PCV) [facility] Start: 2010 Screening for osteoporosis Bone Density Screening [facility] Start: 2005 RSV Immunization age d 60 or older (1 - 1-dose 60+ series) RSV Immunization aged 60 or older (1 - 1-dose 60+ series) [facility] Start: 2000 Screening for osteoporosis DEXA (modify frequency per FRAX score) [facility] Work Phone: Start: 06-10-1995 Pneumococcal Vaccine : 50+ (1 of 1 - PCV) Pneumococcal Vaccine: 50+ (1 of 1 - PCV) [facility] Start: 06-10-1995 Pneumococcal Vaccine : 50+ Years (1 of 1 - PCV) Pneumococcal Vaccine: 50+ Years (1 of 1 - PCV) [facility] Start: 06-10-1995 Screening for malign ant neoplasm of colon Colon cancer screen colonoscopy [facility] Work Phone: Start: 06-10-1995 Shingles Vaccine (1 of 2) Shingles Vaccine (1 of 2) [facility] Work Phone: Start: 06-10-1995 Shingrix Vaccine (1 of 2) Shingrix Vaccine (1 of 2) [facility] Start: 06-10-1995 Zoster vaccine hzv l kira for subcutaneous use ZOSTER (SHINGLES) VACCINE (1 of 2) [facility] Start: 06-10-1995 Zoster Vaccines (1 o f 2) Zoster Vaccines (1 of 2) [facility] Start: 1990 Diabetes Screening Diabetes Screenin g [facility] Start: 1990 Screening for malign ant neoplasm of colon COLORECTAL CANCER SCREENING DISCUSSION [facility] Start: 1985 Screening for malign ant neoplasm of breast MAMMOGRAM SCREENING DISCUSSION [facility] Start: 1966 Screening for malign ant neoplasm of cervix CERVICAL CANCER SCREENING DISCUSSION [facility] Start: 1964 DTaP/Tdap/Td vaccine (1 - Tdap) DTaP/Tdap/Td vaccine (1 - Tdap) [facility] Work Phone: Start: 06-10-1963 Anxiety Screening Anxiety Screening [facility] Start: 06-10-1963 Depression Screening Depression Scre ening [facility] Start: 06-10-1963 Hepatitis C screening Hepatitis C Sc reening [facility] Start: 1957 COVID-19 Vaccine (1) COVID-19 Vaccin e (1) [facility] Work Phone: Start: 1957 Depression Screening Depression Scre [facility] Start: 06-10-1955 Lipid panel Lipid screen [facility] Work Phone: Start: 1945 COVID-19 VACCINE (#1) COVID-19 VACCI NE (#1) [facility] Start: 1945 Hepatitis C screening [facility] Start: 1945 Lipid panel Lipid Panel [facility] Start: 1945 Medicare Annual Wellness (AWV) Medicare Annual Wellness (AWV) [facility] Start: 1945 Screening for osteoporosis [facility] Acid fast bacilli culture [facility] Mycobacterium sp identified in Unspecified specimen by Organism specific culture [facility] Patient Education [facility] Work Phone: Patient referral [facility] Work Phone: [facility] Work Phone: [facility] Immunizations Immunization Date Immunization Notes Care Provider [facility] 12-26-2022 influenza virus vaccine, unspecified formulation Juliet Chanel MD Work Phone: [facility] 09-07-2022 tetanus toxoid, redu janet diphtheria toxoid, and acellular pertussis vaccine, adsorbed [facility] 11-23-2021 influenza, injectabl e, quadrivalent, preservative free [facility] 11-23-2021 influenza, seasonal, injectable Dr. Micheal Betancourt Work Phone: [facility] 11-23-2021 influenza virus vaccine, unspecified formulation Maggiadis Gonzalez CONCRETE BUCKET HOOKER-FACILITY DESIGNER Work Phone: [facility] 11-21-2021 tetanus toxoid, redu janet diphtheria toxoid, and acellular pertussis vaccine, adsorbed Dr. Micheal Betancourt Work Phone: [facility] 01-17-2021 Covid (Moderna) Dr. Micheal felix Work Phone: [facility] 06-16-2020 Covid (Moderna) Dr. Micheal felix Work Phone: [facility] 05-19-2000 Covid (Moderna) Dr. Micheal felix Work Phone: [facility] Payers Date Payer Category Payer Self-pay [id number] 2021 Medicare supplementa l policy (as second payer) O MEDICARE SUPPLEMENT [id number] 2021 Private Health Insurance MMO MED ICARE SUPPLEMENT Member Subscriber Plan / Payer (Effective 2021-Present) Name: Ramos Padron Relation to Subscriber: Self Name: Ramos Padron Payer ID: Not on file Group ID: Not on file Type: [employer] Address: [place] [id number] 2015 Unknown 2015 Unknown [id number] .[id number] 2010 Medicare [id number] 2010 Medicare [id number] 1959 Medicare [id number] 1945 Unknown [id number] [id number] .627 1945 Unknown [id number] 2.16840.1.832033.3.579.2 .627 1945 Unknown [id number] 2.16840.1.735026.3.579.2 .594 1945 Unknown [id number] 2.16840.1.743203.3.579.2 .594 1945 Unknown [id number] 2.16840.1.945712.3.579.2 .594 1945 Unknown [id number] 2.16840.1.257493.3.579.2 .594 1945 Unknown [id number] 2.16840.1.106792.3.579.2 .594 1945 Unknown [id number] 2.16.840.1.052866.3.579.2 .594 1945 Unknown [id number] 2.16.840.1.078098.3.579.2 .594 Unknown [facility] [id number] Unknown [id number] 2.16.840.1.185534.3.579.2 .462 Unknown [id number] 2.16.840.1.541702.3.579.2 .462 Unknown [id number] 2.16.840.1.789947.3.579.2 .462 Unknown [id number] 2.16.840.1.494237.3.579.2 .462 Unknown [id number] 2.16.840.1.607203.3.579.2 .462 Unknown [id number] 2.16.840.1.503081.3.579.2 .462 Unknown [id number] 2.16.840.1.135248.3.579.2 .462 Unknown [id number] 2.16.840.1.402141.3.579.2 .462 Unknown [id number] 2.16.840.1.427992.3.579.2 .462 Social History Date Type Detail Facility Start: 02-19-2022 End: 05-27-2023 Alcohol Use Alcohol Use [facility] [employer] [facility] Work Phone: Comment on above: 1/ month 1per day quit in 2016 [facility]: Comment on above: is POA Start: 08-10-2020 End: 12-17-2024 Tobacco smoking status NCIS Former smoker [facility] Work Phone: History of tobacco use Cigarette Smoker [facility] Start: 08-10-2020 End: 05-15-2023 Tobacco use and exposure Never used [facility] Start: 08-10-2020 End: 02-19-2022 Alcohol intake Current non-drinker of alcohol (finding) [employer] Work Phone: Start: 01-21-2017 Tobacco Comment chewing nicotine gum [employer] Phone: Start: 1945 Sex Assigned At Not on file [facility] Work Phone: Start: 05-08-2021 End: 07-04-2023 Tobacco smoking status NHIS Unknown if ever smoked [facility] Start: 07-15-2019 Non-smoker [facility] Start: 1945 Sex Assigned At Female [facility] Start: 12-12-2021 Tobacco smoking status Never s moked tobacco (finding) [facility] Sex Assigned At Sex [facility] Start: 02-19-2022 End: 05-27-2023 Gender identity Not on file [facility] History of tobacco use Current smoker [facility] Adult Depression Screening Assessment 0 [facility] Start: 10-02-2021 Sex Female (finding) [facility] Medical Equipment Procedure Code Equipment Code [...] Facility 12-02-2021 Functional status Ambulates;Bedr est;Bathroom Privilege [facility] Work Phone: 11-22-2021 Functional Status Identified as high risk, Fall ID band on, Room located near nursing station, Bed alert on, Door open, Non-Slip footwear, Room check performed [facility] 11-22-2021 Functional Status Single level home [facility] 11-22-2021 Functional Status [facility] 11-22-2021 Functional Status Maintained [facility] 11-21-2021 Functional Status Repositions self [facility] Mental Status Date Assessment Result Facility 12-02-2021 Cognitive function [facility] Work Phone: 11-22-2021 Mental Status Oriented x [address] [facility] 11-22-[address] [facility] 11-21-2021 Mental Status [facility] Clinical Notes 11-21-2021 to 12-17-2024 Juliet Chanel MD - 06/18/2024 12:32 PM EDTPatient InstructionsTelephone Hema - Gil Pastor - 03/23/2024 3:33 PM ESTTelephone Encounter - Gil Pastor - 03/23/2024 3:33 PM EST Note Date & Type Note Facility 12-17-2024 Discharge summary [facility] 12-17-2024 Radiology Diagnostic study note [facility] Imaging Services [address] [place] [address] Spine Cervical without Contras MR#: [id number] Acct: [id number] Name: RAMOS PADRON Rep #: [id number] : 1945 F 79 From: Reji Joe MD PCP: Dr. Dmitry Burk MD Status: REG ER Study:Spine Cervical without Contras Date of Exam: 12/17/24 Exam# [id number] Ordering Dr: John Webb DO PROCEDURE: SPINE [...] Burk MD; Dr. John Webb DO ~ Quality Assurance Assistant: Signed [facility] 12-17-2024 Radiology Diagnostic study note [facility] Imaging Services [address] [place] [id number] Brain/Head without Contrast MR#: [id number] Acct: [id number] Name: RAMOS PADRON Rep #: [id number] : 1945 F 79 From: Leonie Moncada MD PCP: Dr. Dmitry Burk MD Status: REG ER Study:Brain/Head without Contrast Date of Exa m: 12/17/24 Exam# [id number] Ordering Dr: John Webb DO PROCEDURE: BRAIN/HEAD [...] ischemic changes and volume loss. Reading Location: [id number] CC: Dr. Dmitry Burk MD; Dr. John Webb DO ~ Quality Assurance Assistant: Signed [facility] 06-18-2024 Note HNO ID: [id number] Author: JULIET CHANEL MD Service: ? Author Type: Physician Type: Progress Notes Filed: 06/18/2024 12:37 Note Text: [facility] - FOLLOW UP EVALUATION Primary Movement Disorders Neurologist: Juliet Chanel MD Primary Movement Disorders NEISHA: Not yet assigned Recording using Rong360 software for draft documentation of the visit was discussed with the patient/authorized senior sales representative; all questions welcomed and answered. Patient/authorized senior sales representative agreed to proceed Dmitry Burk MD [address] [facility] [address] Dear Dmitry Burk MD: I had the [...] she she moved to [address] in [place] and will remain there indefinitely. Her reports [...] OIL) enema 133 (more content not included)... [facility] 06-18-2024 History of Present illness Narrative [facility] - FOLLOW UP EVALUATION Primary [facility] Disorders Neurologist: Juliet Chanel MD Primary Movement Disorders NEISHA: Not yet assigned Recording using ambient AI software for draft documentation of the visit was discussed with the patient/authorized senior sales representative; all questions welcomed and answered. Patient/authorized senior sales representative agreed to proceed MD Jose Miguel [place] [facility] [address] [facility] [address] Dear Dmitry Burk MD: I had the [...] she she moved to [address] in [place] and will remain there indefinitely. Her reports [...] during this visit: Psp (progressive supranuclear palsy) ([facility]) Plan 06/18/2024 Visit: 1. PSP (progressive supranuclear palsy) ([facility]) (G23.1) - Patient exhibits significant balance issues [...] or around: 12/18/24 Level of service : 90589 ( 30-39 min). Time spent 33 min on the day of service, which included preparing to see the patient, wqdt-sx-mbvv patient care, completing clinical documentation, performing a medically appropriate examination, and counseling and educating the patient/family/caregiver. Thank you for allowing me to be part of the clinical care of this patient! I look forward to continued participation in the patient s care with you. Please do not hesitate to call with any questions. Sincerely, Juliet Chanel MD documented in this encounter [facility] 06-18-2024 Instructions Juliet Chanel MD - 06/18/2024 [...] or you can send a message through [employer]. You can also now schedule and select appointments through [employer]. Juliet Chanel MD documented in this encounter [facility] 03-23-2024 Telephone encounter Note Lvm x3 to r/s with provider due to media promoter not taking supplement [facility] 03-23-2024 Miscellaneous Notes Lvm x3 to r/s with provider due to media promoter not taking supplement documented in this encounter [facility] 01-20-2024 Note HNO ID: [id number] Author: JULIET CHANEL MD Service: ? Author Type: Physician Type: Progress Notes Filed: 01/20/2024 12:38 Note Text: [facility] - FOLLOW UP EVALUATION Dimtry Burk MD Jose [address] [place] [address] [facility] [address] I had the pleasure of seeing Ms. [...] index is 25. (more content not included)... [facility] 01-20-2024 History of Present illness Narrative [facility] - FOLLOW UP EVALUATION Dmitry Burk MD [address] [place] [address] [facility] [address] I had the pleasure of seeing Ms. [...] during this visit: Psp (progressive supranuclear palsy) ([facility]) Plan 01/20/2024 Visit: Try increasing Sinemet up to 2 tabs 3 times a day. Continue exercise - Updated Movement Disorders Medication Schedule: Medications Sinemet 25/100 1-2 1-2 1-2 Return at or around: 06/19/24 Level of service : 79362 (40-68 min). Time spent 51 min on the day of service, which included preparing to see the patient, kmgr-ql-ofjm patient care, completing clinical documentation, performing a [...] Juliet Chanel MD documented in this encounter [facility] 01-20-2024 Instructions Juliet Chanel MD - 01/20/2024 [...] or you can send a message through [employer]. You can also now schedule and select appointments through [employer]. Juliet Chanel MD documented in this encounter [facility] 11-08-2023 Note HNO ID: [id number] Author: JESENIA JAMES, PT, DPT Service: ? [...] explanation of finding (more content not included)... [facility] 11-08-2023 History of Present illness Narrative [...] James PT, DPT documented in this encounter [facility] 10-03-2023 Telephone encounter Note Summary: Research Attempted to call patient to touch base on potential research participation. Call would not go through. [facility] Work Phone: 10-03-2023 Miscellaneous Notes Summary: Research Attempted to call patient to touch base on potential research participation. Call would not go through. documented in this encounter [facility] 10-02-2023 Telephone encounter Note Called to speak about Octavio interest but could not leave a voicemail because mailbox was full. , Scotty Diez, Tube Building Machine Operator [facility] Work Phone: 10-02-2023 Miscellaneous Notes Called to speak about Octavio interest but could not leave a voicemail because mailbox was full. , Scotty Diez, Tube Building Machine Operator documented in this encounter [facility] 09-16-2023 History of Present illness Narrative [facility] - FOLLOW UP EVALUATION Dmitry Burk MD [address] [place] [address] [facility] [address] I had the pleasure of seeing Ms. [...] Picks up the U-step. In a hurry. [facility] recommending hip surgery. There is pain. Not [...] Single mattress, lower. Considering adjustable bed. Took [facility]. Parkinson's Medication Schedule - as of the [...] or around: 01/17/24 Level of service : 56280 (40-54 min). Time spent 56 min on the day of service, which included preparing to see the patient, peqz-ea-ahud patient care, completing clinical documentation, obtaining and/or [...] Juliet Chanel MD documented in this encounter [facility] 09-16-2023 Instructions Juliet Chanel MD - 09/16/2023 [...] or you can send a message through [employer]. You can also now schedule and select appointments through [employer]. Juliet Chanel MD documented in this encounter [facility] 08-09-2023 History of Present illness Narrative Program_ID:[id number] Access Code: [email or web address] URL: [email or web address] Date: 08-09-2023 Prepared By: Jesenia James Program [...] Patient to be seen for Therapeutic exercise (23042), Neuromuscular re-education (55746), Manual therapy (20764), Therapeutic activities (22575), Self-senior care management (02819), Gait Training (23130), Patient/Family/Caregiver Education PLAN FOR NEXT VISIT: 3 [...] James PT, DPT documented in this encounter [facility] 08-09-2023 Note HNO ID: [id number] Author: JESENIA JAMES PT, DPT Service: ? [...] Patient to be seen for Therapeutic exercise (33759), Neuromuscular re-education (42318), Manual therapy (86278), Therapeutic activities (35362), Self-senior care management (17319), Gait Training (45803), Patient/Family/Caregiver Education PLAN FOR NEXT VISIT: 3 [...] safety. Education as (more content not included)... [facility] 07-17-2023 Note HNO ID: [id number] Author: LYSSA KEMP PTA Service: ? Author Type: Executive Chairman Of The Board Type: Progress Notes Filed: 07/17/2023 13:11 Note [...] Session Stop Time : 1130 Lyssa Kemp [facility] 07-17-2023 History of Present illness Narrative Episode [...] Lyssa Kemp PTA documented in this encounter [facility] 07-15-2023 Telephone encounter Note PA started on cover my meds for Sinemet 25-100. Waiting for ins reply. Motta:[id number] [facility] 07-15-2023 Miscellaneous Notes PA started on cover my meds for Sinemet 25-100. Waiting for ins reply. Motta:[id number] documented in this encounter [facility] 07-12-2023 Note HNO ID: [id number] Author: LYSSA KEMP PTA Service: ? Author Type: Executive Chairman Of The Board Type: Progress Notes Filed: 07/12/2023 15:48 Note [...] Session Stop Time : 1130 Lyssa Kemp [facility] 07-12-2023 History of Present illness Narrative Episode [...] Lyssa Kemp PTA documented in this encounter [facility] 07-10-2023 Telephone encounter Note Call to patient, no answer. Message left for return call. [facility] 07-10-2023 Miscellaneous Notes Call to patient, no [...] asking to go back to brand. Yola [phone] Last Office Visit: Visit 05/15/2023 Next scheduled appointment: Visit date not found Best number to reach caller: Yola [phone] Best time to reach caller: Is it OK to leave a detailed voice message? documented in this encounter [facility] 07-10-2023 Telephone encounter Note Call received for Juleit Chanel MD regarding Ramos Padron 1945. Caller: [...] asking to go back to brand. Yola [phone] Last Office Visit: Visit 05/15/2023 Next scheduled appointment: Visit date not found Best number to reach caller: Yola [phone] Best time to reach caller: Is it OK to leave a detailed voice message? [facility] 07-05-2023 Note HNO ID: [id number] Author: LYSSA KEMP PTA Service: ? Author Type: Executive Chairman Of The Board Type: Progress Notes Filed: 07/05/2023 10:53 Note [...] with turning to sit down. Cues to fruit or nut picker feet. TREATMENT: Therapeutic Activity: 1: seated reaching [...] Session Stop Time : 104 Lyssa Kemp [facility] 07-05-2023 History of Present illness Narrative Episode [...] with turning to sit down. Cues to fruit or nut picker feet. TREATMENT: Therapeutic Activity: 1: seated reaching [...] Lyssa Kemp PTA documented in this encounter [facility] 06-28-2023 Note HNO ID: [id number] Author: JESENIA JAMES, PT, DPT Service: ? [...] Patient to be seen for Therapeutic exercise (75695), Neuromuscular re-education (28153), Manual therapy (27754), Therapeutic activities (91494), Self-senior care management (24126), Gait Training (88808), Patient/Family/Caregiver Education PLAN FOR NEXT VISIT: Practice [...] problem solving for (more content not included)... [facility] 06-28-2023 History of Present illness Narrative [...] Patient to be seen for Therapeutic exercise (54944), Neuromuscular re-education (42344), Manual therapy (08350), Therapeutic activities (44160), Self-senior care management (39185), Gait Training (43529), Patient/Family/Caregiver Education PLAN FOR NEXT VISIT: Practice [...] James PT, DPT documented in this encounter [facility] 06-25-2023 Discharge summary Note Date/Time June 25, 2023 4:44pm [facility] Medical Records Department [address] [place] [address] Emergency Department Summary 06/25/23 MR#: [id number] Acct: [id number] Name: RAMOS PADRON Rep #:[id number] : 1945 78 From: Louie Manzo MD [...] your Primary Care Provider. Call [facility] ([phone]) or report to the closest Emergency Room. Call 911 if necessary. 06/25/23 1715 <Electronically signed by Louie Manzo MD> Cosigner Signature (if applicable): CC: Dr. Dmitry Burk MD ~ Signed [facility] Work Phone: 1(915) 521-714804-19-2024 NoteHNO ID: [id number] Author: LYSSA KEMP PTA Service: ? Author Type: Executive Chairman Of The Board Type: Progress Notes Filed: 06/21/2023 11:45 Note [...] Session Stop Time : 955 Lyssa Kemp [facility]04-19-2024 History of Present illness Narrative* Lyssa [...] 955 Lyssa Kemp PTA [facility] NoteHNO ID: [id number] Author: LYSSA KEMP PTA Service: ? Author Type: Executive Chairman Of The Board Type: Progress Notes Filed: 06/14/2023 11:44 Note [...] : 1000 Therapeutic exercise: 8 Lyssa Kemp [facility]04-12-2024 [facility] of Present [facility]arrative* [facility] 9[facility]16 AM EDT Episode Visit [...] 8 Lyssa Kemp PTA [facility]2024 NoteHNO ID: [id number] Author: LYSSA KEMP PTA Service: ? Author Type: Executive Chairman Of The Board Type: Progress Notes Filed: 06/07/2023 12:29 Note [...] 4: standing with U step turning to fruit or nut picker cones and reaching to set on table [...] Session Stop Time : 1002 Lyssa Kemp [facility] [id number] History of Present illness Narrative* Lyssa Kemp [...] 4: standing with U step turning to fruit or nut picker cones and reaching to set on table [...] 1001 Lyssa Kemp PTA [facility]24 NoteHNO ID: [id number] Author: JESENIA JAMES, PT, DPT Service: ? [...] Planned: 8 Planned Treatment Interventions: Therapeutic exercise (57700), Neuromuscular re-education (19612), Manual therapy (48204), Therapeutic activities (50811), Self-senior care management (96556), Gait Training (68910), Patient/Family/Caregiver Education PLAN FOR NEXT VISIT: PROMIS [...] cues to stop when (more content not included)...[id number] History of Present illness Narrative* Jesenia James, [...] Planned: 8 Planned Treatment Interventions: Therapeutic exercise (59861), Neuromuscular re- education (26290), Manual therapy (57467), Therapeutic activities (63527), Self- senior care management (90990), Gait Training (08061), Patient/Family/Caregiver Education PLAN FOR NEXT VISIT: PROMIS [...] week at PD class Hobbies / Interests: [employer] Home Environment Patient Lives With: Spouse Assistance [...] Jesenia James PT, DPT [facility] Hospital Discharge instructions Additional Instructions You can ice your wrist for 10 to 15 minutes at a time few times a day for the next few days and take Tylenol for your pain as needed. Please follow-up with your PCP if no improvement of your symptoms.[facility] Work Phone: 1(561) 952-922303-13-2024 History of Present illness Narrative* Juliet Chanel MD - 05/15/2023 2:40 PM EDT [facility] - NEW PATIENT EVALUATION No referring provider defined for this encounter. MD Jose Miguel [address] [place] [address] [facility] [address] I had the pleasure of evaluating Ms. Padron to our clinic today. As you know she is a 77 year oldright-handed female who is seen for evaluation of PSP since 2019. She is seen with her . Subjective HISTORY OF PRESENT ILLNESS: Initial HPI Previously followed in [place]. Transitioning care closer to home. Symptoms started [...] bears right. Has done PT. Currently at [facility]. Pretty constant therapy. Pays for epic trainer at [facility] when it stops. Daycare 2 days [...] 1 1 1 Level of service : 67503 (60-74) min). Time spent 74 min on the day of service, which included preparing to see the patient, mwyl-gb-lqyk patient care, completing clinical documentation, obtaining and/or [...] Sincerely, Juliet Chanel MD [facility] Instructions* Patient Instructions* Juliet Chanel MD - [...] or you can send a message through [employer]. You can also now schedule and select appointments through [employer]. Juliet Chanel MD [facility] Telephone encounter Note * Telephone Encounter - Erin Hedrick MA - 03/13/2023 10:07 AM EST Pt returned call advised her of normal CA 125 [facility] Miscellaneous Notes* Telephone Encounter - Erin Hedrick MA - 03/13/2023 10:07 AM EST Pt returned call advised her of normal CA 125 * Telephone Encounter - Yelena Finney - 03/12/2023 10:31 AM EST LVM with normal CA125 encouraged pt to call the office with any concerns or questions. documented in this [facility]01-09-2024 Telephone encounter Note* Telephone Encounter - Yelena Finney - 03/12/2023 10:31 AM EST LVM with normal CA125 encouraged pt to call the office with any concerns or questions. [facility] [id number] History of Present illness Narrative* MUSHTAQ Barber [...] May. drove her to appt today. Going wgxbhvoh-ol-aenn house for [employer] dinner, about 5 family members will be [...] recognition. I apologize for minor errors in edge bander hand which may be present. documented in this [facility]10-12-2023 History of Present illness Narrative* MARY Farmer - 12/13/2022 8:00 AM EDT Movement Disorders Clinic Follow up visit Ramos Padron is a 77 y.o. female with PSP who was last seen 11/13/[address] Gonzalez. HISTORY OF PRESENT ILLNESS: Interval History: At last visit, sinemet reduced to 25/100mg 1 tablet PO TID due to lack of improvement. Met with Jenise Bean, social media strategist. She did fall a few times once [...] continue it at this time. Follow-up with site identification specialist regarding double vision to see if [...] Disorders Center Outpatient Neurology [facility] History of Present illness Narrative* Sugar [...] two years ago the patient fell at [facility] and sustained a small hemorrhage. The patient [...] psychiatric diagnoses: none reported Psychiatrist (current): none human resources safety manager (current): none Therapist/Counselor (current): none TMS/ECT: [...] on file. Childhood: Born and raised in [place] Living situation: currently lives with spouse, no kids Relationships/support: Good social support Education: high school diploma Occupation: insurance Trauma/abuse/DV history: no Legal issues/history: no Strengths: perserverance and personal intelligence Temple considerations: none reported Cultural/ethnic considerations: none reported Language spoken at home: Afghan LEARNING CONSIDERATIONS: Barriers to learning: (e.g., sensory [...] as needed. Sugar Najera, PhD Clinical Neuropsychologist [place] [employer] License #[id number] documented in [facility] Instructions* Patient Instructions* Maggi Gonzalez APRN-FACILITY DESIGNER - 12/13/2022 8:00 AM EDT Consider prisms for your glasses to help with double vision. Continue sinemet 25/100mg 1 tablet by mouth three times per day- no changes. May consider reducing if unclear benefit. Hydrate well. Will see what PT says about a new walker. [facility] Discharge summary Author Myla Benavides [facility] March 22, 2022 10:20am Note Date/Time March 22, 2022 1 0:20am [facility] Physical Therapy [facility] [address] [place] [address] / REHABILITATION SERVICES DISCHARGE SUMMARY MR#: [id number] Acct: [id number] Name: RAMOS PADRON Rep #: [id number] : 1945 76 From: Myla Benavides PT, Cert. T Referring Dr.: Dr. Mariano David DO Status: REG RCR Insurance: MEDICARE PART A B [facility] RAMOS PADRON was seen in my office [...] Dr. Micheal Betancourt MD ~ SILVIANO Signed [facility] Work Phone: 1(153) 121-764909-21-2022 Discharge summary Date of Service 11/21/2021 - 11/22/2021 Discharge Diagnosis 1. Subdural hematoma (S06.5X9A - ICD-10-CM) Future Orders: CT Head or Brain w/o Contrast; *Est. 12/07/21, Routine, Right SDH, Wt [id number], No, [facility], NEUROS by JULIANA HARRINGTON, [facility] K 2. Fall (W19.XXXA - ICD-10-CM) Traumatic [...] recently diagnosed Parkinson's who was shopping at [employer] today when she lost her balance and [...] was taken by EMS to outside hospital, [facility] wherea head CT was obtained, showing a small right acute temporal subdural hematoma with maximum thickness of 7 mm and no associated midline shift. Cervical CT unremarkable. Bilateral knee x-rays were also obtained and showed no acute findings. Patient was then transferred to [facility] for neurosurgical review and care. She had [...] Evaluated by PT/OT who recommended inpatient therapy. MATTRESS AND BOXSPRINGS SUPERVISOR assisted with discharge planning. Arrangements made for patient to go to [facility] [place]. COVID swab obtained, negative. Patient remained neurologically [...] abrasions to bilateral knees. Laceration at right baptism, closed with sutures. No bleeding or drainage. Site is without redness or swelling. Pending Labs and Studies N/A Code Status No qualifying data available. Admission Date 11/21/2021 Discharge Date 11/22/[address] at [facility] on 12/07/2021 at 9:15 AM. Please [...] Up Follow Up with JULIANA HARRINGTON, JHON [place], Neurosurgery When 12/07/2021 09:15 AM EDT Why: Appointment is scheduled with Dr Andrews's nurse practitioner for re- evaluation, and review of head CT results. Where: [address] [address] [phone] Follow Up with [facility], Skilled, Nurse to Nurse [phone]. When Within 1-2 days Follow Up with MICHEAL BETANCOURT When Within 1-2 days Where: [address] [place] [address]- [phone] Business (1) Follow Up Appointments Transfer of [...] Score No qualifying data available. Discharge Disposition [facility] Information Provided To Patient/family Digitally Signed by KIAN HEMPHILL on 11/22/2021 02:55 PM Digitally Signed by JHON ANDREWS MD on 11/22/2021 03:53 PM [facility]Fnpvuvic38-[facility]-7989 History and physical note Date of Service 11/21/2021 Chief Complaint Acute SDH s/p fall. History of Present Illness 76-year-old female with medical history significant for Parkinson's, and previous left hip surgeries who was shopping at [employer] today when she lost her balance and [...] was taken by EMS to outside hospital, [facility] where a head CT was obtained, showing a small right acute temporal subdural hematoma with maximum thickness of 7 mm and no associated midline shift. Cervical CT unremarkable. Bilateral knee x-rays were also obtained and showed no acute findings. Patient was then transferred to [facility] for neurosurgical review and care. She had [...] who lost her balance while shopping at [employer], and fell to the ground striking her head. Denied LOC, or syncopal event. Taken to [facility] via EMS and head CT showed a small acute right temporal subdural hematoma, measuring 7 mm in maximum thickness. No associated midline shift. Other work-up including a cervical CT and bilateral knee x-rays were negative for acute injuries. Patient was transferred to [facility] emergency department. Small laceration over right frontal [...] with her . Family History Mother- CVA, [place] Father- Cancer (unknown type) Sister- Pulmonary disease Brother- CVA Immunizations No qualifying data available. Code Status No qualifying data available. Digitally Signed by KIAN HEMPHILL on 11/21/2021 04:18 PM [facility] [id number] Note Discharge Instructions Thank you for allowing [facility] to assist you with your healthcare needs. The following is importantdischarge information regarding your hospital visit. Your Care Team MICHEAL BETANCOURT MD Your Diagnosis Subdural hematoma Fall What to do next Instructions From Your Doctor Head CT at [facility] on 12/07/2021 at 9:15 AM. Please [...] OV 12/07/2021 10:00 AM EDT Neurosurgery [address] [address] Follow Up Appointments Follow Up with JULIANA HARRINGTON, JHON [place], Neurosurgery When 12/07/2021 09:15 AM EDT Why: Appointment is scheduled with Dr Andrews's nurse practitioner for re- evaluation, and review of head CT results. Where: [address] [place] [address] [phone] Follow Up with [facility], Skilled, Nurse to Nurse [phone]. When Within 1-2 days Follow Up with MICHEAL BETANCOURT When Within 1-2 days Where: [address] [facility] [place] [address] [phone] Business (1) The Following Activity and Diet [...] care provider about what to expect. Take srue-csy-yyfsnsk and prescription medicines only as told by your health care provider. Do not take blood thinners or NSAIDs unless your health care provider approves. These include aspirin, ibuprofen, naproxen, and warfarin. Keep your home environment safe to reduce the risk of falling. Keep all follow-up visits as told by your health care provider. This is important. Where to find more information National [place] of Neurological Disorders and Stroke: www.ninds.nih.gov [place] [employer] (AAN): www.aan.com Brain Injury [...] 01/05/2005 Document Revised: 01/19/2019 Document Reviewed: 01/19/2019 [employer] Patient Education 2020 [employer] Additional Information VACCINATE! IT SAVES LIVES! Members of the community who have not yet received the COVID-19 vaccine and would like to receive it can visit one of [facility] vaccine clinics. There are many vaccine clinic locations within the [facility]. For locations and available times, please visit https://gettheshot.coronavirus.[place].gov/. It is important to note that some COVID mobile vaccine clinics are held outdoors and may be canceled in rainy or stormy conditions. To learn more about pediatric vaccinations (ages 5-11), we invite you to visit the [facility] webpage. https://www.[facility].org/pages/6762-Efxar-Vldpzvyxyqy-Ghojbevlai-Sxbde-Gmd stions.htmlTo learn more about the COVID-19 vaccine, we invite you to visit the [employer] website for a list of frequently asked questions. https://Online [employer]ers.[employer]/assets/Bgyibdoh-pvq-Scnuyalu/blsmw-Zzfsvqo-Ebfvqrsmio _Asked-Questions.pdf [facility] One[facility] Patient Portal Access Instructions: Stay connected with your healthcare team and access your personal medical information anytime with the [facility] Patient Portal.If you would like a full copy of your medical records, please contact the [facility] Medical Records Department, Saturday through Saturday between 8a.m. and 4:30p.m. Please follow the directions below to access the portal: 1.Access the email account you provided upon registration to the [facility].2.Look for an invitation email from [facility].3.Open the email and access the invitation link: Accept Invitation to [facility] ([place])4.Fill in the required rain to create your account. Sign into [email or web address] with your username and password that you [...] you will allow to register on the [facility] Patient Portal for access to your information. You can also access the [facility] Patient Portal on the Ready To Travel. Simply click on Health Records under [employer] and then click on the [employer] logo. HOW TO SAFELY DISPOSE OF PRESCRIPTION [...] Call your local pharmacy or go to [email or web address]://AudioName.[employer]/6R1Mo8w to find one close to you.3.Make use of household items: Use cat litter or old coffee grounds to dispose medications if other options arenot available. Mix your drugs with these household products, seal them in an airtight container andthrow it into the garbage. [facility]: [phone] to be sure your drugs can be [...] aware that I should contact my doctor. Patient/Associate Professor Signature: Date/Time: Relationship to Patient: Witness Name/Signature: Date/Time: [id number] Hospital Discharge instructions Patient Education 11/22/2021 11:16:52 [...] care provider about what to expect. Take pabp-szd-kbzbwyf and prescription medicines only as told by your health care provider. Do not take blood thinners or NSAIDs unless your health care provider approves. These include aspirin, ibuprofen, naproxen, and warfarin. Keep your home environment safe to reduce the risk of falling. Keep all follow-up visits as told by your health care provider. This is important. Where to find more information [place] of Neurological Disorders and Stroke: www.ninds.nih.gov [place] Academy [employer] Neurology (AAN): www.aan.com Brain Injury [...] 01/05/2005 Document Revised: 01/19/2019 Document Reviewed: 01/19/2019 [employer] Patient Education 2020 [employer] Follow Up Care 11/21/2021 12:58:26 With:JULIANA HARRINGTON, JHON Neville, Neurosurgery Address: [facility] [address] [phone] When:12/07/2021 09:15:00 Comments:Appointment is scheduled with Dr Andrews's nurse practitioner for re- evaluation, and review of head CTresults. With:[facility], Jesus, Nurse to Nurse [phone]. Address:Unknown When:1-2 days With:MICHEAL BETANCOURT Address: [address] [place] [address]- [phone] Business (1) When:1-2 days [facility] 09-21-2022 Note Discharge Instructions Thank you for allowing [facility] to assist you with your healthcare needs. The following is importantdischarge information regarding your hospital visit. Your Care Team MICHEAL BETANCOURT MD Your Diagnosis Subdural hematoma Fall What to do next Instructions From Your Doctor Head CT at [facility] on 12/07/2021 at 9:15 AM. Please [...] OV 12/07/2021 10:00 AM EDT Neurosurgery [address] [place] [address] Follow Up Appointments Follow Up with JULIANA HARRINGTON, [facility], Neurosurgery When 12/07/2021 09:15 AM EDT Why: Appointment is scheduled with Dr Andrews's nurse practitioner for re- evaluation, and review of head CT results. Where: [address] [place] [address] [phone] Follow Up with [facility], [facility], Nurse to Nurse [phone]. When Within 1-2 days Follow Up with MICHEAL BETANCOURT When Within 1-2 days Where: [address] [place] [phone] Business (1) The Following Activity and Diet [...] care provider about what to expect. Take unqv-fkq-gkfrbmk and prescription medicines only as told by your health care provider. Do not take blood thinners or NSAIDs unless your health care provider approves. These include aspirin, ibuprofen, naproxen, and warfarin. Keep your home environment safe to reduce the risk of falling. Keep all follow-up visits as told by your health care provider. This is important. Where to find more information [place] of Neurological Disorders and Stroke: www.ninds.nih.gov [place] Academy of Neurology (AAN): www.aan.com Brain Injury [...] 01/05/2005 Document Revised: 01/19/2019 Document Reviewed: 01/19/2019 [employer] Patient Education 2020 [employer] Additional Information VACCINATE! IT SAVES LIVES! Members of the community who have not yet received the COVID-19 vaccine and would like to receive it can visit one of [facility] vaccine clinics. There are many vaccine clinic locations within the [facility]. For locations and available times, please visit https://gettheshot.coronavirus.[place].gov/. It is important to note that some COVID mobile vaccine clinics are held outdoors and may be canceled in rainy or stormy conditions. To learn more about pediatric vaccinations (ages 5-11), we invite you to visit the [facility] webpage. https://www.CareHubss.org/pages/9560-Rrcrw-Veogpjqhejn-Tgsuhirktv-Vtzvm-Nde stions.htmlTo learn more about the COVID-19 vaccine, we invite you to visit the [facility] website for a list of frequently asked questions. https://arianna.org/assets/Mqjwjnyt-jzw-Fzgkyzlx/chhbt-Gyczrzj-Rbwcidspdh _Asked-Questions.pdf [facility] ([place]) Patient Portal Access Instructions: Stay connected with your healthcare team and access your personal medical information anytime with the [facility] Patient Portal.If you would like a full copy of your medical records, please contact the [facility] Medical Records Department, Saturday through Saturday between 8a.m. and 4:30p.m. Please follow the directions below to access the portal: 1.Access the email account you provided upon registration to the hospital.2.Look for an invitation email from [facility].3.Open the email and access the invitation link: Accept Invitation to [facility]4.Fill in the required rain to create your account. Sign into [email or web address] with your username and password that you [...] you will allow to register on the [facility] Patient Portal for access to your information. You can also access the [facility] Patient Portal on the Xango.com neisha. Simply click on Health Records under [employer] and then click on the [employer] logo. HOW TO SAFELY DISPOSE OF PRESCRIPTION [...] Call your local pharmacy or go to http://[facility]/9N3Mo2o to find one close to you.3.Make use of household items: Use cat litter or old coffee grounds to dispose medications if other options arenot available. Mix your drugs with these household products, seal them in an airtight container andthrow it into the garbage. Call [facility]: [phone] to be sure your drugs can be [...] aware that I should contact my doctor. Patient/Associate Professor Signature: Date/Time: Relationship to Patient: Witness Name/Signature: Date/Time: [id number] Note Discharge Instructions Thank you for allowing [facility] to assist you with your healthcare needs. The following is importantdischarge information regarding your hospital visit. Your Care Team MICHEAL BETANCOURT MD Your Diagnosis Subdural hematoma Fall What to do next Follow Up Appointments Follow Up with [facility], Skilled, Nurse to Nurse [phone]. When Within 1-2 days Follow Up with MICHEAL BETANCOURT When Within 1-2 days Where: [address] [place] [phone] Business (1) The Following Activity and Diet [...] to receive it can visit one of [facility] vaccine clinics. There are many vaccine clinic locations within the [facility]. For locations and available times, please visit https://gettheshot.coronavirus.[place].gov/. It is important to note that some COVID mobile vaccine clinics are held outdoors and may be canceled in rainy or stormy conditions. To learn more about pediatric vaccinations (ages 5-11), we invite you to visit the [facility] webpage. https://www.[facility].org/pages/4599-Qeggj-Dpmexugfwpt-Scxnqqwlol-Ybpfq-Jcx stions.htmlTo learn more about the COVID-19 vaccine, we invite you to visit the [employer] website for a list of frequently asked questions. https://arianna.[employer]/assets/Xtijswcd-mbj-Zknmxrbi/ksxjg-Xbflhea-Rffgikkxwx _Asked-Questions.pdf [facility] Patient Portal Access Instructions: Stay connected with your healthcare team and access your personal medical information anytime with the [facility] Patient Portal.If you would like a full copy of your medical records, please contact the [facility] Medical Records Department, Saturday through Saturday between 8a.m. and 4:30p.m. Please follow the directions below to access the portal: 1.Access the email account you provided upon registration to the [facility].2.Look for an invitation email from [facility].3.Open the email and access the invitation link: Accept Invitation to [facility]4.Fill in the required rain to create your account. Sign into [email or web address] with your username and password that you [...] you will allow to register on the [facility] Patient Portal for access to your information. You can also access the [facility] Patient Portal on the Ready To Travel. Simply click on Health Records under [employer] and then click on the [employer] logo. HOW TO SAFELY DISPOSE OF PRESCRIPTION [...] Call your local pharmacy or go to http://AudioName.[employer]/9X3Hp5z to find one close to you.3.Make use of household items: Use cat litter or old coffee grounds to dispose medications if other options arenot available. Mix your drugs with these household products, seal them in an airtight container andthrow it into the garbage. Call [facility]: [phone] to be sure your drugs can be [...] aware that I should contact my doctor. Patient/Associate Professor Signature: Date/Time: Relationship to Patient: Witness Name/Signature: Date/Time: [facility] [id number] Note ORIGINAL EXAMINATION: CT OF THE HEAD [...] Right SDH Patient is a transfer from [facility] [place], no complaints of pain FINDINGS: Hyperdense subdural [...] Sign Date: 11/22/2021 5:30:05 AM Ordering Provider: [facility]09-21-2022 Note ORIGINAL EXAMINATION: CT OF THE HEAD [...] Right SDH Patient is a transfer from [facility] in [place], no complaints of pain FINDINGS: Hyperdense subdural [...] Sign Date: 11/22/2021 5:30:05 AM Ordering Provider: [facility]09-20-2022 Note ORIGINAL EXAMINATION: TWO XRAY VIEWS [...] Sign Date: 11/21/2021 9:18:02 PM Ordering Provider: [facility]09-20-2022 Note ORIGINAL EXAMINATION: TWO XRAY VIEWS [...] Sign Date: 11/21/2021 9:18:02 PM Ordering Provider: [facility]09-20-2022 History and physical note Date of Service 11/21/2021 Chief Complaint Acute SDH s/p fall. History of Present Illness 76-year-old female with medical history significant for Parkinson's, and previous left hip surgeries who was shopping at [employer] today when she lost her balance and [...] was taken by EMS to outside hospital, [facility] where a head CT was obtained, showing a small right acute temporal subdural hematoma with maximum thickness of 7 mm and no associated midline shift. Cervical CT unremarkable. Bilateral knee x-rays were also obtained and showed no acute findings. Patient was then transferred to [facility] for neurosurgical review and care. She had [...] who lost her balance while shopping at [employer], and fell to the ground striking her head. Denied LOC, or syncopal event. Taken to [facility] via EMS and head CT showed a small acute right temporal subdural hematoma, measuring 7 mm in maximum thickness. No associated midline shift. Other work-up including a cervical CT and bilateral knee x-rays were negative for acute injuries. Patient was transferred to [facility] emergency department. Small laceration over right frontal [...] with her . Family History Mother- CVA, [place] Father- Cancer (unknown type) Sister- Pulmonary disease Brother- CVA Immunizations No qualifying data available. Code Status No qualifying data available. Digitally Signed by KIAN HEMPHILL on 11/21/2021 04:18 PM [facility] [id number] Evaluation + Plan noteExtracted from: Title:History and Physical Author:KIAN HEMPHILL CONCRETE BUCKET HOOKER-FACILITY DESIGNER Date:11/21/21 Mild TBI acute small SDH s/p accidental fall 76-year-old female with history of Parkinson's, who lost her balance while shopping at [employer], and fell to the ground striking her head. Denied LOC, or syncopal event. Taken to [facility] via EMS and head CT showed a small acute right temporal subdural hematoma, measuring 7 mm in maximum thickness. No associated midline shift. Other work-up including a cervical CT and bilateral knee x-rays were negative for acute injuries. Patient was transferred to [facility] emergency department. Small laceration over right frontal [...] any acute changes or concerns. Addendum by JOHN ANDREWS MD on November 22, 2021 13:36:54 EDT This is a split shared note between myself and the nurse practitioner. No acute overnight events. This is a 76-year-old female with a history of Parkinson's disease and multiple hip surgeries, who was shopping when she lost her balance and struck her head on the ground. She was taken to [facility] where CT scan showed the presence of [...] CT Head or Brain w/o Contrast 12/07/21 [facility] Discharge summary Author Dr. Segura [facility] May 21, 2022 12:20pm Note Date/Time May 21, 2022 10: 29am [facility] Medical Records Department [address] [place] [address] Emergency Department Summary 05/21/22 MR#: [id number] Acct: [id number] Name: RAMOS PADRON Rep #:[id number] : 1945 76 From: Home Segura MD PCP: Care Physician,No Primary Status :REG ER Location: ED HPI History of Present Illness Chief Complaint: Back Narrative Narrative: 76-year-old female past medical history of Parkinson disease, presents with injury to her back, low back that she sustained approximately 10 days ago. She states that she was vacationing in [place], and someone had called out to her. [...] anesthesia, no loss of bowel or bladder. [facility] Medical History (Updated 05/21/22 @ 12:18 by [...] DAILY 03/16/22 [History Last Taken Unknown] coenzyme B23-zvyqlkl E 100 mg-100 unit capsule cap PO [...] Contusion, ED MechanicalFall Prescriptions: No Action coenzyme V07-ooadarx E 100-100 mg-unit capsule PO cholecalciferol (vitamin [...] your Primary Care Provider. Call [facility] ([phone]) or report to the closest Emergency Room. Call 911 if necessary. 05/21/22 1220 <Electronically signed by Home Segura MD> Cosigner Signature (if applicable): CC: No Primary Care Physician ~ Signed [facility] Work Phone: Discharge summary Author John Webb [facility] Note Date/Time December 17, 2024 1 2:30[facility] Medical Records Department [address] [place] [address] Emergency Department Summary 12/17/24 MR#: [id number] Acct: [id number] Name: RAMOS PADRON Rep #:[id number] : 1945 79 From: [facility] PCP: Dr. Dmitry Burk MD Status:DEP ER [...] frequently. reports that the staff at the residential found her on the floor. Patient denies any loss of consciousness. states patient's immunizations are up-to-date. Patient does complain of headache and neck pain. Patient is not on any anticoagulants. Patient denies any weakness. Tetanus Immunization: <5 years PFSH [facility] Medical History De Quervain's tenosynovitis, right Osteoarthritis [...] bisacodyl 10 mg rectal suppository 10 mg [place] DAILY PRN constipation 12/17/24 Unknown History cephalexin [...] (Milk of Magnesia) mineral oil 118 ml [place] DAILY PRN constipa tion 12/17/24 Unknown History [...] Sl. Cloudy Urine pH 7.0 Ur Specific [place] 1.010 Urine Protein Negative Urine Glucose (UA) [...] ischemic changes and volume loss. Reading Location: [id number] Cervical Spine CT 12/17/24 10:00 IMPRESSION: There [...] 0RF bisacodyl 10 mg suppository 10 mg [place] DAILY PRN (Reason: constipation) Patient Comments: 8 HRS AFTER MOM loperamide [Diamode] 2 mg tablet 2 mg PO Q6H PRN (Reason: loose stool) magnesium hydroxide [Milk of Magnesia] 400 mg/5 mL suspension 30 ml PO DAILY PRN (Reason: stomach upset) mineral oil Enema 118 ml [place] DAILY PRN (Reason: constipation) rivastigmine tartrate 3 [...] 5 Days for suture removal Print Language: Afghan Disposition Disposition: Home, Self Care What to do if you have Problems For any increased pain, shortness of breath, bleeding, nausea or vomiting, chestpain, or any unexpected problems, contact your Primary Care Provider. Call [facility] ([phone]) or report to the closest Emergency Room. Call 911 if necessary. 12/17/24 1541 <Electronically signed by John Webb DO> Cosigner Signature (if applicable): CC: Dr. 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, except isthmus [facility] Work [facility]: [facility] note* Diagnosis Onset Date Resolution Status DDD (degenerative disc disease), lumbar acute DDD (degenerative disc disease), thoracic acute [facility] Work Phone: Evaluation note* Diagnosis Onset Date Resolution Status DDD (degenerative disc disease), lumbar acute DDD (degenerative disc disease), thoracic acute Polyneuropathy acute Mild cognitive impairment ch ronic Parkinson's disease chronic [facility] Work Phone: Evaluation note* Diagnosis Onset Date Resolution Status DDD (degenerative disc disease), lumbar acute DDD (degenerative disc disease), thoracic acute Polyneuropathy acute Mild cognitive impairment ch ronic Parkinson's disease chronic Debility acute Hyperlipidemia acute Parkinson disease acute Subdural hematoma acute Vitamin D deficiency acute [facility] Work Phone: Evaluation note* Diagnosis Onset Date Resolution Status Polyneuropathy acute Mild cognitive impairment ch ronic Parkinson's disease chronic Debility acute Hyperlipidemia acute Parkinson disease acute Vitamin D deficiency acute Subdural hematoma resolved [facility] Work Phone: Evaluation note* Diagnosis Onset Date Resolution Status Polyneuropathy acute Mild cognitive impairment ch ronic Parkinson's disease chronic Debility acute Hyperlipidemia acute Parkinson disease acute Vitamin D deficiency acute Subdural hematoma resolved Acute bronchitis, unspecified acute URI (upper respiratory infection) acute [facility] Work Phone: Evaluation note* Diagnosis Onset Date Resolution Status Debility acute Hyperlipidemia acute Parkinson disease acute Vitamin D deficiency acute Subdural hematoma resolved Acute bronchitis, unspecified acute URI (upper respiratory infection) acute DDD (degenerative disc disease), lumbar acute Osteoarthritis of right hip noneactive [facility] Work Phone: Evaluation note* Diagnosis Onset Date Resolution Status Acute bronchitis, unspecified acute URI (upper respiratory infection) acute DDD (degenerative disc disease), lumbar acute Osteoarthritis of right hip noneactive [facility] Work Phone: Evaluation noteNo assessment information available [facility] Work Phone: Evaluation note* Diagnosis PSP (progressive supranuclear palsy)- Primary Other degenerative diseases of the basal ganglia [facility] Diagnosis Psychological and behavioral factors associated with disorders or diseases classified elsewhere- Primary Progressive supranuclear palsy Other degenerative diseases of the basal ganglia [facility] Diagnosis Endometrial cancer (CMS/HCC) (HCC)- Primary Malignant neoplasm of corpus uteri, except isthmus [facility] Diagnosis Onset Date Resolution Status De Quervain's tenosynovitis, right acute Osteoarthritis of carpometacarpal joint of right thumb acute Right hand pain acute [facility] Work Phone: Evaluation note* Diagnosis PSP (progressive supranuclear palsy) (HCC)- Primary Other degenerative diseases of the basal ganglia documented in this encounter [facility] note* Diagnosis Onset Date Resolution Status De Quervain's tenosynovitis, right acute Osteoarthritis of carpometacarpal joint of right thumb acute Right hand pain acute De Quervain's tenosynovitis, right acute Osteoarthritis of carpometacarpal joint of right thumb acute Right hand pain acute [facility] Work Phone: Evaluation note* Diagnosis Imbalance- Primary Abnormality of gait PSP (progressive supranuclear palsy) (HCC) Other degenerative diseases of the basal ganglia Abnormality of gait Falls frequently Personal history of fall [facility] Diagnosis PSP (progressive supranuclear palsy) (HCC)- Primary Other degenerative diseases of the basal ganglia Imbalance Abnormality of gait Abnormality of gait Falls frequently Personal history of fall [facility]* Diagnosis PSP (progressive supranuclear palsy) (HCC)- Primary Other degenerative diseases of the basal ganglia Imbalance Abnormality of gait Abnormality of gait Falls frequently Personal history of fall [facility]* Diagnosis PSP (progressive supranuclear palsy) (HCC)- Primary Other degenerative diseases of the basal ganglia Imbalance Abnormality of gait Abnormality of gait Falls frequently Personal history of fall [facility]* Diagnosis Onset Date Resolution Status De Quervain's tenosynovitis, right acute Osteoarthritis of carpometacarpal joint of right thumb acute Right hand pain acute De Quervain's tenosynovitis, right acute Osteoarthritis of carpometacarpal joint of right thumb acute Right hand pain acute Acute lumbar myofascial strain acute Compression fracture of L2 a anupamaamos [facility] Work Phone: Evaluation note* Diagnosis PSP (progressive supranuclear palsy) (HCC)- Primary Other degenerative diseases of the basal ganglia Imbalance Abnormality of gait Abnormality of gait Falls frequently Personal history of fall documented in this encounter [facility] note* Diagnosis PSP (progressive supranuclear palsy) (HCC)- Primary Other degenerative diseases of the basal ganglia documented in this encounter [facility] note* Diagnosis PSP (progressive supranuclear palsy) (HCC) Other degenerative diseases of the basal ganglia documented in this encounter [facility] note* Diagnosis PSP (progressive supranuclear palsy) (HCC) Other degenerative diseases of the basal ganglia [facility] Narrative No data available for this section [facility] Hospital Discharge instructions Additional Instructions Discharge home with 12/02/2021, [employer] PT/OT/.[facility] Work Phone: Hospital Discharge instructions No data available for this section [facility] Hospital Discharge instructions Additional Instructions Follow-up with your primary care physician as soon as possible. Continue your Tylenol as needed for pain.[facility] Work Phone: Hospital Discharge instructions Additional Instructions Scans of head face and neck are negative. X-ray right knee is negative. 9 sutures placed to your forehead. Wound care as discussed. Follow-up with your doctor for suture removal.[facility] Work Phone: Hospital Discharge instructions Additional Instructions Ice and take Tylenol as needed. If you develop a severe headache or vomiting return to the ER.[facility] Work Phone: Hospital Discharge instructions Additional Instructions CT brain negative. Use Tylenol up to 1 g every 6 hours as needed. Follow-up with your doctor.[facility] Work Phone: Progress note No data available for this section [facility] Reason for referral (narrative)* Consultation (Routine) - New Request Specialty Diagnoses / Procedures Referred By Contac t Referred To Contact Psychiatry Diagnoses Psychological and behavioral factors associated with disorders or diseases classified elsewhere Sugar Najera, PhD [address] [facility] [address] [place] [address] Referral ID Status Reason Start Date Expiration Date V isits Requested Visits Authorized [id number] New Request 12/13/2022 01/07/2024 1 1 [facility]arrative[facility]No reason for referral information [facility] Work Phone: Summary Purpose Family History No [...] FoundDocuments on File Type Date Recorded Patient Associate Professor Expl anation ACP-Advance Directive ACP-Power of Signing Agent Advance Directive Response Recorded Date/ Time Living Will Yes August 03, 2020 1 0:53am Power of Signing Agent Yes August 03, 2020 10:53am Advance Directive Response Recorded Date/ Time Name of Medical Power of Signing Agent October 17, 2021 9:59am Living Will Yes October 17 9:59am Power of Signing Agent Yes October 17 9:59am Advance Directive Response Recorded Date/ Time Name of Medical Power of Signing Agent October 17, 2021 9:59am Name of Medical Power of Signing Agent SAMANTA PADRON, October 19, 2021 9:39am Living Will Yes October 19 9:39am Power of Signing Agent Yes October 19 9:39am Advance Directive Response Recorded Date/ Time Name of Medical Power of Signing Agent October 17, 2021 9:59am Name of Medical Power of Signing Agent SAMANTA PADRON, October 19, 2021 9:39am Living Will No November 21, 2021 9:15am Power of Signing Agent No November 9:15am Advance Directive Response Recorded Date/ Time Name of Medical Power of Signing Agent October 17, 2021 9:59am Name of Medical Power of Signing Agent SAMANTA PADRON, October 19, 2021 9:39am Name of Medical Power of Signing Agent Lito Padron, November 23, 2021 10:06am Living Will Yes November 23, 2021 10:06am Power of Signing Agent Yes November 10:06am Advance Directive Response Recorded Date/ Time Name of Medical Power of Signing Agent Lito Padron , November 23, 2021 9:06am Living Will Yes November 23, 2021 9:06am Power of Signing Agent Yes November 9:06am Advance Directive Response Recorded Date/ Time Living Will No May 21, 2022 10:41am Power of Signing Agent No May 21 10:41am Advance Directive Response Recorded Date/ Time Living Will No September 24, 2022 9:14am Power of Signing Agent No September 24 9:14am Advance Directive Response Recorded Date/ Time Name of Medical Power of Signing Agent Rafael January 15, 2023 4:42pm Living Will Yes January 15, 2 023 4:42pm Power of Signing Agent Yes January 15, 2023 4:42pm Advance Directive Response Recorded Date/ Time Living Will Yes January 15, 023 5:42pm Power of Signing Agent Yes January 15, 2023 5:42pm Advance Directive Response Recorded Date/ Time Name of Medical Power of Signing Agent rafael mata cosmo May 23, 2023 5:07pm Living Will Yes May 23, 2023 5:07pm Power of Signing Agent Yes May 22 5:07pm Advance Directive Response Recorded Date/ Time Name of Medical Power of Signing Agent rafael mata cosmo May 23, 2023 5:07pm Name of Medical Power of Signing Agent Rafael Gomez er June 25, 2023 4:19pm Living Will Yes June 25, 2023 4:19pm Power of Signing Agent Yes June 24 4:19pm Advance Directive Response Recorded Date/ Time Name of Medical Power of Signing Agent rafael mata cosmo May 23, 2023 5:07pm Name of Medical Power of Signing Agent Rafael Gomez er June 25, 2023 4:19pm Name of Medical Power of Signing Agent --samanta July 04, 2023 7:08pm Living Will Yes July 04, 2023 7: 08pm Power of Signing Agent Yes July 04, 2023 7:08pm Advance Directive Response Recorded Date/ Time Do you have a Healthcare Power of Signing Agent? Yes December 17, 2024 9:35am Instructions Name [...] fracture of L2 Chief Complaint Admit Date CARE HOME LAB WORK September 08, 2024 5:0 0am fall December 17, 2024 9 :26am Reason for Referral Specialty Diagnoses / Procedures Referred By Betzaida t Referred To Contact [facility] Diagnoses PSP (progressive supranuclear palsy) ([facility]) Procedures CONSULT TO PHYSICAL THERAPY PHYSICAL THERAPY EVALUATION HIGH COMPLEX 45 MINS Juliet Chanel MD [address] [place] [address] [facility] [place] [address] Referral ID Status Reason Start Date Expiration Date Visits Requested Visits Authorized [id number] Authorized PCP Requested Referral Auto-Generate d Referral 05/15/2023 05/14/2024 99 99 Specialty Diagnoses / Procedures Referred By Contac t Referred To Contact Diagnoses PSP (progressive supranuclear palsy) (HCC) Procedures PROVIDER ORDERED FOLLOW UP OFFICE/OUTPATIENT NEW HIGH MDM 60 MINUTES Juliet Chanel MD [address] [place] [address] Referral ID Status Reason Start Date Expiration Date Visits Requested Visits Authorized [id number] Authorized PCP Requested Referral 08/15/2023 05/14/2024 1 1 Specialty Diagnoses / Procedures Referred By Contac t Referred To Contact Speech Therapy Diagnoses PSP (progressive supranuclear palsy) Maggi Gonzalez CONCRETE BUCKET HOOKER-FACILITY DESIGNER [address] [place] [address] Referral ID Status Reason Start Date Expiration Date V isits Requested Visits Authorized [id number] New Request 12/13/2022 01/07/2024 1 1 Specialty Diagnoses / Procedures Referred By Contac t Referred To Contact Occupational Therapy Diagnoses PSP (progressive supranuclear palsy) Maggi Gonzalez CONCRETE BUCKET HOOKER-FACILITY DESIGNER [address] [place] [id number] Referral ID Status Reason Start Date Expiration Date V isits Requested Visits Authorized [id number] New Request 12/13/2022 01/07/2024 1 1 Specialty Diagnoses / Procedures Referred By Contac t Referred To Contact Physical Therapy Diagnoses PSP (progressive supranuclear palsy) Maggi Gonzalez CONCRETE BUCKET HOOKER-FACILITY DESIGNER [address] [place] [id number] Referral ID Status Reason Start Date Expiration Date V isits Requested Visits Authorized [id number] New Request 12/13/2022 01/07/2024 1 1 Additional Source Comments INFORMATION SOURCE (unrecogn ized section and content) DATE CREATED AUTHOR 08/23/2017 [facility] DATE CREATED AUTHOR AUTHOR'S ORGANIZ ATION 05/26/2020 [facility] ntsylvia Monroy DATE CREATED AUTHOR AUTHOR'S ORGANIZ ATION 08/19/2020 [facility] DATE CREATED AUTHOR AUTHOR'S ORGANIZ ATION 01/17/2022 [facility] ([place]) DATE CREATED AUTHOR AUTHOR'S ORGANIZ ATION 12/29/2022 [facility] DATE CREATED AUTHOR AUTHOR'S ORGANIZ ATION 11/10/2023 [facility] DATE CREATED AUTHOR AUTHOR'S ORGANIZ ATION 04/30/2024 [facility] DATE CREATED AUTHOR AUTHOR'S ORGANIZ ATION 12/25/2024 [facility] DATE CREATED AUTHOR AUTHOR'S ORGANIZ ATION 01/02/2025 [facility] Goals (unrecognized section and content) Goals [...] Member Role: Primary Care Physician Address: Address: [address] [place] [address] Care Team Related Persons Name: GWENCOSMO SAMANTA Address: [address] [address] Care Team Personnel Name: MICHEAL BETANCOURT MD Member Role: Primary Care Physician Address: Address: [address] [place] [address] [place] [address]- Care Team Related Persons Name: SAMANTA PADRON Address: Home [address] [place] [phone] Care Teams (unrecognized sec tion and content) [...] Juliet Mohamud DO Primary Care Provider Active Hand Deicer Element Winder Relationship Specialty Start Date End Date Micheal Betancourt [address] [facility] [place] [phone] PCP - General 01/30/16 Rabia Pedroza, CONCRETE BUCKET HOOKER - FACILITY DESIGNER [address] [facility] [address] [place] [address] Nurse Practitioner Certified Nurse Practitioner 02/08/22 Hand Deicer Element Winder Relationship Specialty Start Date End Date Micheal Betancourt [address] [place] [phone] PCP - General 01/30/16 Rabia Pedroza, CONCRETE BUCKET HOOKER - FACILITY DESIGNER [address] [facility] [address] [place] [address] Nurse Practitioner Certified Nurse Practitioner 02/08/22 Team [...] Provide r, Attending Provider, Referring Provider Active Hand Deicer Element Winder Relationship Specialty Start Date End Date Dmitry Burk MD [address] [facility] [address] [place] [address] PCP - General Internal Medicine 05/15/23 Team Status: Inactive Member Role Status Marguerite Burk MD Primary Care Provider Active Dr. Lamont Escobedo , Emergency Provider Active Hand Deicer Element Winder Relationship Specialty Start Date End Date Dmitry Burk MD [address] [facility] [address] [place] [address] PCP - General Internal Medicine 05/15/23 Team Status: Inactive Member Role Status Marguerite Burk MD Primary Care Provider Active Dr. Lamont Escobedo DO Attending Provider, Emergency Provide r Active Hand Deicer Element Winder Relationship Specialty Start Date End Date Dmitry Burk MD [address] [facility] [address] [place] [address] PCP - General Internal Medicine 05/15/23 Hand Deicer Element Winder Relationship Specialty Start Date End Date Dmitry Burk MD [address] [facility] [address] [place] [address] PCP - General Internal Medicine 05/15/23 Team Status: Inactive Member Role Status Dates Dmitry Burk MD Primary Care Provider Active Dr. Louie Manzo MD Emergency Provider Active Hand Deicer Element Winder Relationship Specialty Start Date End Date Dmitry Burk MD [address] [facility] [address] [place] [address] PCP - General Internal Medicine 05/15/23 Team Status: Inactive Member Role Status Dates Dmitry Burk MD Primary Care Provider, Referring Prov ider Active Dr. Donavan Sandhu MD Attending Provider Active Team Status: Inactive Member Role Status Dates Dmitry Burk MD Primary Care Provider Active Dr. Louie Manzo MD Attending Provider, Emergency Provi milton Active Hand Deicer Element Winder Relationship Specialty Start Date End Date Dmitry Burk MD [address] [facility] [address] [place] [address] PCP - General Internal Medicine 05/15/23 Hand Deicer Element Winder Relationship Specialty Start Date End Date Dmitry Burk MD [address] [facility] [address] [place] [address] PCP - General Internal Medicine 05/15/23 Team Status: Active Member Role Status Dates Dmitry Burk MD Primary Care Provider Active Dr. Romeo Powell MD Attending Provider, Referrin g Provider Active Team Status: Active Member Role Status Dates Dmitry Burk MD Primary Care Provider Active Dr. Donavan Sandhu MD Attending Provider, Referring Pr ovider Active Hand Deicer Element Winder Relationship Specialty Start Date End Date Dmitry Burk MD [address] [facility] [address] [place] [address] PCP - General Internal Medicine 05/15/23 Hand Deicer Element Winder Relationship Specialty Start Date End Date Dmitry Burk MD [address] [facility] [address] [place], [place] [address] PCP - General Internal Medicine 05/15/23 Hand Deicer Element Winder Relationship Specialty Start Date End Date Dmitry Burk MD [address] [facility] [address] [place], [place] [phone] PCP - General Internal Medicine 05/15/23 Hand Deicer Element Winder Relationship Specialty Start Date End Date Dmitry Burk MD [address] [facility] [address] [place], [place] [address] PCP - General Internal Medicine 05/15/23 Hand Deicer Element Winder Relationship Specialty Start Date End Date Dmitry Burk MD [address] [facility] [address] [place], [place] [phone] PCP - General Internal Medicine 05/15/23 Hand Deicer Element Winder Relationship Specialty Start Date End Date Micheal Betancourt [address] [place] [address] [place] [phone] PCP - General 01/30/16 Rabia Pedroza APRN - FACILITY DESIGNER [address] [address] Nurse Practitioner Certified Nurse Practitioner 02/08/22 Ryne Munoz MD [address] [facility] [address] [place] [address] Consulting Physician Gynecologic Oncology 03/23/24 Hand Deicer Element Winder Relationship Specialty Start Date End Date Dmitry Burk MD [address] [place] [address] PCP - General Internal Medicine 05/15/23 Team [...] 45 MINS Juliet Chanel MD [address] [address] [facility] [address] [address] Referral ID Status Reason Start Date Expiration Date Visits Requested Visits Authorized [id number] Authorized PCP Requested Referral Auto-Generate d Referral 05/15/2023 05/14/2024 99 99 Reason Comments Follow Up Specialty Diagnoses / Procedures Referred By Contac t Referred To Contact Diagnoses PSP (progressive supranuclear palsy) (HCC) Procedures PROVIDER ORDERED FOLLOW UP OFFICE/OUTPATIENT NEW HIGH MDM 60 MINUTES Juliet Chanel MD [address] [address] Referral ID Status Reason Start Date Expiration Date V isits Requested Visits Authorized [id number] Closed PCP Requested Referral 01/17/2024 09/15/2024 1 [...] Expiration Date V isits Requested Visits Authorized [id number] Closed PCP Requested Referral 08/15/2023 05/14/2024 1 1 Reason Comments Research Spoke with Ramos out PSP trial information. Would like time to review study and I will connect with her early next week. Reason Comments Research LVM for [place]se[place] trial Reason Comments Research Asked for call back regarding [place] Study Reason Comments Research IRB [id number] Specialty Diagnoses / Procedures Referred By Betzaida t Referred To Contact Diagnoses PSP (progressive supranuclear palsy) (HCC) Procedures PROVIDER ORDERED FOLLOW UP OFFICE/OUTPATIENT NEW HIGH MDM 60 MINUTES Juliet Chanel MD [address] [place] [address] [address] [place] [address] Phone: tel: fax: Referral ID Status Reason Start Date Expiration Date V isits Requested Visits Authorized [id number] Closed PCP Requested Referral 06/19/2024 01/19/2025 1 1 Source Comments (unrecognize d section and content) In the event this informatio n is protected by the Federal Confidentiality of Alcohol and Drug Abuse Patient Records regulations: The Federal rules restrict any use of the information to criminally investigate or prosecute any alcohol or drug abuse patient.[facility] the event this information is protected by the Federal Confidentiality of Alcohol and Drug Abuse Patient Records regulations: The Federal rules restrict any use of the information to criminally investigate or prosecute any alcohol or drug abuse patient.[facility] Campus[facility] the event this information is protected by the Federal Confidentiality of Alcohol and Drug Abuse Patient Records regulations: The Federal rules restrict any use of the information to criminally investigate or prosecute any alcohol or drug abuse patient.[facility] Campus[facility] the event this information is protected by the Federal Confidentiality of Alcohol and Drug Abuse Patient Records regulations: The Federal rules restrict any use of the information to criminally investigate or prosecute any alcohol or drug abuse patient.[facility] CampusIn the event this information is protected by [...] or prosecute any alcohol or drug abuse patient.[facility] Campus[facility] the event this information is protected by the Federal Confidentiality of Alcohol and Drug Abuse Patient Records regulations: The Federal rules restrict any use of the information to criminally investigate or prosecute any alcohol or drug abuse patient.[facility] CampusIn the event this information is protected by the Federal Confidentiality of Alcohol and Drug Abuse Patient Records regulations: The Federal rules restrict any use of the information to criminally investigate or prosecute any alcohol or drug abuse patient.[facility] CampusIn the event this information is protected by the Federal Confidentiality of Alcohol and Drug Abuse Patient Records regulations: The Federal rules restrict any use of the information to criminally investigate or prosecute any alcohol or drug abuse patient.[facility] CampusIn the event this information is protected by the Federal Confidentiality of Alcohol and Drug Abuse Patient Records regulations: The Federal rules restrict any use of the information to criminally investigate or prosecute any alcohol or drug abuse patient.[facility] CampusIn the event this information is protected by the Federal Confidentiality of Alcohol and Drug Abuse Patient Records regulations: The Federal rules restrict any use of the information to criminally investigate or prosecute any alcohol or drug abuse patient.[facility] CampusIn the event this information is protected by the Federal Confidentiality of Alcohol and Drug Abuse Patient Records regulations: The Federal rules restrict any use of the information to criminally investigate or prosecute any alcohol or drug abuse patient.[facility] CampusIn the event this information is protected by the Federal Confidentiality of Alcohol and Drug Abuse Patient Records regulations: The Federal rules restrict any use of the information to criminally investigate or prosecute any alcohol or drug abuse patient.[facility] CampusIn the event this information is protected by the Federal Confidentiality of Alcohol and Drug Abuse Patient Records regulations: The Federal rules restrict any use of the information to criminally investigate or prosecute any alcohol or drug abuse patient.[facility] CampusIn the event this information is protected by the Federal Confidentiality of Alcohol and Drug Abuse Patient Records regulations: The Federal rules restrict any use of the information to criminally investigate or prosecute any alcohol or drug abuse patient.[facility] CampusIn the event this information is protected by the Federal Confidentiality of Alcohol and Drug Abuse Patient Records regulations: The Federal rules restrict any use of the information to criminally investigate or prosecute any alcohol or drug abuse patient.[facility] CampusIn the event this information is protected by the Federal Confidentiality of Alcohol and Drug Abuse Patient Records regulations: The Federal rules restrict any use of the information to criminally investigate or prosecute any alcohol or drug abuse patient.[facility] CampusIn the event this information is protected by the Federal Confidentiality of Alcohol and Drug Abuse Patient Records regulations: The Federal rules restrict any use of the information to criminally investigate or prosecute any alcohol or drug abuse patient.[facility] CampusIn the event this information is protected by the Federal Confidentiality of Alcohol and Drug Abuse Patient Records regulations: The Federal rules restrict any use of the information to criminally investigate or prosecute any alcohol or drug abuse patient.[facility] CampusIn the event this information is protected by the Federal Confidentiality of Alcohol and Drug Abuse Patient Records regulations: The Federal rules restrict any use of the information to criminally investigate or prosecute any alcohol or drug abuse patient.[facility] CampusIn the event this information is protected by the Federal Confidentiality of Alcohol and Drug Abuse Patient Records regulations: The Federal rules restrict any use of the information to criminally investigate or prosecute any alcohol or drug abuse patient.[facility] CampusIn the event this information is protected by the Federal Confidentiality of Alcohol and Drug Abuse Patient Records regulations: The Federal rules restrict any use of the information to criminally investigate or prosecute any alcohol or drug abuse patient.[facility] FOR RECORDS PERTAINING TO PATIENTS WHO ARE [...] BE BASED ON THE PRIMARY CLINICAL RECORDS. [facility] [employer] [facility]. provides no warranty or guarantee of the accuracy or completeness of information in this document.
[2025-02-12 21:40] LABS: Reflex Lactate? Y
[2025-02-12] MEDS: 0.9% Normal Saline (1000mL) 1,000 ML 75 ML IV (22:11)
[2025-02-12 22:42] LABS: Neutrophil-Segmented 85 % (47-70); Total Cells Counted 100 (MANUAL DIFF)
[2025-02-12 22:44] LABS: Neutrophil-Band 2 % (0-5)
[2025-02-12 22:50] LABS: Troponin T High Sens 4 HR 18 ng/L (<=14)
[2025-02-13] VITALS (8 sets, daily range): BP systolic 97–122; BP diastolic 47–69; PULSE 55–67; RESP 16–20; TEMP 36.2–37; O2SAT 95–98; BMI 22.4
[2025-02-13 05:09] LABS: Hematocrit 38.4 % (37-47); Hemoglobin 12.2 g/dL (12.0-15.0); Immature Granulocytes Count 0.050 X10^3/uL (0.0-0.0); Mean Corp Hgb Conc 31.8 g/dL (32-36); Mean Corpuscular Volume 93.7 fL (81-99); Mean Platelet Vol. 9.6 fl (6.2-12.0); NRBC Flagged by Analyzer 0 % (0-5); Platelet Count 235 K/mm3 (150-450); RBC Distribution Width CV 13.5 % (11.6-14.6); RBC Distribution Width SD 45.9 fl (35.1-43.9); Red Blood Count 4.10 M/mm3 (4.2-5.4); White Blood Count 14.4 K/mm3 (4.4-11.0)
[2025-02-13 06:38] LABS: AST(SGOT) 12 U/L (<=31); Alanine Aminotransfer ALT/SGPT < 5 U/L (<=34); Albumin, Serum 2.9 g/dL (3.4-4.8); Alkaline Phosphatase 82 U/L (35-104); Anion Gap 12 (5-15); BUN 11 mg/dL (4-19); BUN/Creat Ratio 16.6 RATIO (10-20); Calcium,Total 8.7 mg/dL (7.6-11.0); Carbon Dioxide 22.0 mmol/L (21.0-32.0); Chloride 110 mmol/L (98-108); Estimated Creatinine Clearance 45.10 ml/min (50-250); Globulin 2.8 g/dL (2.2-4.2); Glucose 81 mg/dL (70-99); Potassium 3.4 mmol/L (3.3-5.1)
--- NOTE | 2025-02-13 14:23 | CASEMGMT ---
Social Work Pt is from [facility]. SW called as pt is not fully alert and oriented. Pt confirms pt is from [facility] and the plan is for pt to return when ready. He states pt is there private pay. SW explained it is anticipated pt will be here through the weekend. states understanding. SW sent updates in [facility], will follow up Saturday. VALERIO Story
--- NOTE | 2025-02-13 18:47 | PN.HOSP_ITS ---
Reason for Visit Chief Complaint: Fever, altered mental status Subjective Subjective Patient was seen and examined today, she remains confused, I talked to her who states that she is currently in a care facility under skilled care. Objective Data Objective Data Vital Signs: Vital Signs Temp Pulse Resp BP Pulse Ox O2 Del Method O2 Flow Rate 97.7 F L 67 16 97/52 L 95 Room Air 3 02/13/25 15:00 02/13/25 15:00 02/13/25 15:00 02/13/25 15:00 02/13/25 15:00 02/13/25 15:00 02/13/25 10:00 Oxygen Flow Rate (L/min) 3 Oxygen Delivery Method Room Air Weight: 55.7 kg Body Mass Index (BMI) 22.4 Intake & Output: Intake and Output for Last 24 Hours 02/11/25 02/12/25 02/13/25 23:59 23:59 23:59 Intake Total 1300 / 1300 1000 / 1000 Output Total 1200 / 1200 Balance 1300 / 1300 -200 / -200 Lab / Micro Data 02/13/25 05:00 02/13/25 06:02 Labs: Laboratory Results - last 24 hr 02/12/25 17:30: Absolute Neuts (auto) 16.9 H, Absolute Lymphs (auto) 1.74, Total Counted 100, Neutrophils % (Manual) 85 H, Band Neutrophils % 2, Lymphocytes % (Manual) 9 L, Monocytes % (Manual) 4, Platelet Estimate ADEQUATE 02/12/25 17:50: Urine RBC 5-10 SEEN, Urine WBC >100 SEEN, Ur Squamous Epith Cells 0-5 SEEN, Urine Bacteria 3+, Urine Mucus 0 SEEN 02/12/25 19:33: Troponin T Hi Sens 2 Hr 16 H 02/12/25 21:55: Troponin T Hi Sens 4Hr 18 H 02/12/25 22:10: POC Glucose 113 H 02/12/25 23:29: Lactic Acid 1.1 02/13/25 05:00: WBC 14.4 H, RBC 4.10 L, Hgb 12.2, Hct 38.4, MCV 93.7, MCH 29.8, MCHC 31.8 L, RDW Std Deviation 45.9 H, RDW Coeff of Annalise 13.5, Plt Count 235, MPV 9.6, Immature Gran % (Auto) 0.300, Neut % (Auto) 70.1 H, Lymph % (Auto) 23.4, [place] % (Auto) 4.8, Eos % (Auto) 1.0, Baso % (Auto) 0.4, Absolute Neuts (auto) 10.1 H, Absolute Lymphs (auto) 3.37, Nucleated RBC % 0, Sodium Cancelled, Potassium Cancelled, Chloride Cancelled, Carbon Dioxide Cancelled, Anion Gap Cancelled, BUN Cancelled, Creatinine Cancelled, Estim Creat Clear Calc Cancelled, Est GFR (MDRD) Non-Af Cancelled, BUN/Creatinine Ratio Cancelled, Glucose Cancelled, Hemoglobin A1c 5.5, Calcium Cancelled, Total Bilirubin Cancelled, AST Cancelled, ALT Cancelled, Alkaline Phosphatase Cancelled, Total Protein Cancelled, Albumin Cancelled, Globulin Cancelled, Albumin/Globulin Ratio Cancelled 02/13/25 06:02: Sodium 144, Potassium 3.4, Chloride 110 H, Carbon Dioxide 22.0, Anion Gap 12, BUN 11, Creatinine 0.68 L, Estim Creat Clear Calc 45.10 L, Est GFR (MDRD) Non-Af 89, BUN/Creatinine Ratio 16.6, Glucose 81, Calcium 8.7, Total Bilirubin 0.63, AST 12, ALT < 5, Alkaline Phosphatase 82, Total Protein 5.7 L, A lbumin 2.9 L, Globulin 2.8, Albumin/Globulin Ratio 1.1 Micro: Microbiology 02/12/25 17:50 Urine Catheter - Catheter Urine Culture - Preliminary Gram negative tristan 02/12/25 23:15 Mucosa - Nasopharyngeal Respiratory Panel (PCR) - Final 02/12/25 17:50 Urine Catheter - Catheter Legionella Antigen - Final 02/12/25 17:50 Urine Catheter - Catheter Streptococcus pneumoniae Antigen (M - Final 02/12/25 17:30 Mucosa - Nose SARS-CoV-2, Influenza & RSV (PCR) - Final Physical Exam Const alert, no apparent distress and average body habitus General Appearance: cooperative, well kempt and well developed Orientation / Consciousness: awake and confused HEENT normocephalic, head/scalp atraumatic and moist oral mucous membranes Eyes PERRL, EOMs intact bilaterally and conjunctivae normal Neck supple, no JVD, thyroid normal and no carotid bruits General: trachea midline Resp normal respiratory effort, no retractions, no use of accessory muscles and clear to auscultation bilaterally Auscultation: Negative for rales, rhonchi or wheezes Cardio regular rate, regular rhythm, S1 normal heart sound, S2 normal heart sound, no murmurs, no rub and no gallops GI normal to inspection, nondistended, normoactive bowel sounds, soft to palpation, non-tender and non-distended Extremity no clubbing, cyanosis or edema Skin no rashes or lesions noted General Skin Exam: no breakdown Neuro CN's II-XII intact bilaterally and moves all extremities Neuro Narrative: Patient is confused Sensorium / Orientation: awake and alert Psych Psych Narrative: Patient is confused Assessment & Plan Assessment/Plan (1) UTI (urinary tract infection): PLAN: Plan 1. 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
[2025-02-13] MEDS: 0.9% Saline Lock 10 ML Syringe IV (20:58)
[2025-02-14 02:56] VITALS: BP 121/56; PULSE 62; RESP 18; TEMP 36.5; O2SAT 94
[2025-02-14 03:49] VITALS: BMI 22.4
[2025-02-14] MEDS: 0.9% Saline Lock 10 ML Syringe IV ×4 (05:06→22:05)
[2025-02-14 08:44] VITALS: BP 117/59; PULSE 59; RESP 16; TEMP 36.5; O2SAT 94
--- NOTE | 2025-02-14 14:59 | PCM.PN.HOSP ---
Reason for Visit Chief Complaint: Fever, altered mental status Subjective Subjective Patient was seen and examined today, her was in the room at the time my examination, she did not carry on a conversation with me but smiled and did not seem to be in any distress. Patient's urine culture grew out Citrobacter which is pansensitive. CBC will be rechecked tomorrow Objective Data Objective Data Vital Signs: Vital Signs Temp Pulse Resp BP Pulse Ox O2 Del Method O2 Flow Rate 97.7 F L 59 L 16 117/59 L 94 Room Air 3 02/14/25 08:44 02/14/25 08:44 02/14/25 08:44 02/14/25 08:44 02/14/25 08:44 02/14/25 08:51 02/13/25 10:00 Oxygen Flow Rate (L/min) 3 Oxygen Delivery Method Room Air Weight: 55.7 kg Body Mass Index (BMI) 22.4 Intake & Output: Intake and Output for Last 24 Hours 02/12/25 02/13/25 02/14/25 23:59 23:59 23:59 Intake Total 1300 / 1300 1170 / 1170 800 / 800 Output Total 1850 / 1850 1600 / 1600 Balance 1300 / 1300 -680 / -680 -800 / -800 Lab / Micro Data 02/13/25 05:00 02/13/25 06:02 Micro: Microbiology 02/12/25 17:50 Urine Catheter - Catheter Urine Culture - Final Citrobacter koseri 02/12/25 23:15 Mucosa - Nasopharyngeal Respiratory Panel (PCR) - Final 02/12/25 17:50 Urine Catheter - Catheter Legionella Antigen - Final 02/12/25 17:50 Urine Catheter - Catheter Streptococcus pneumoniae Antigen (M - Final 02/12/25 17:30 Mucosa - Nose SARS-CoV-2, Influenza & RSV (PCR) - Final Physical Exam Narrative alert, no apparent distress and average body habitus General Appearance: cooperative, well kempt and well developed Orientation / Consciousness: awake and confused HEENT normocephalic, head/scalp atraumatic and moist oral mucous membranes Eyes PERRL, EOMs intact bilaterally and conjunctivae normal Neck supple, no JVD, thyroid normal and no carotid bruits General: trachea midline Resp normal respiratory effort, no retractions, no use of accessory muscles and clear to auscultation bilaterally Auscultation: Negative for rales, rhonchi or wheezes Cardio regular rate, regular rhythm, S1 normal heart sound, S2 normal heart sound, no murmurs, no rub and no gallops GI normal to inspection, nondistended, normoactive bowel sounds, soft to palpation, non-tender and non-distended Extremity no clubbing, cyanosis or edema Skin no rashes or lesions noted General Skin Exam: no breakdown Neuro CN's II-XII intact bilaterally and moves all extremities Neuro Narrative: Patient is confused Sensorium / Orientation: awake and alert, patient does not carry on a conversation Psych Psych Narrative: Patient is confused Assessment & Plan Assessment/Plan (1) Sepsis: (2) UTI (urinary tract infection): PLAN: Plan 1. 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
[2025-02-14 15:41] VITALS: BP 138/62; PULSE 66; RESP 17; TEMP 36.7; O2SAT 95
[2025-02-14] MEDS: Ensure Plus High Protein 120 ML LIQUID PO (15:55)
[2025-02-14 20:34] VITALS: BP 133/57; PULSE 57; RESP 16; TEMP 36.3; O2SAT 95
[2025-02-15 03:00] VITALS: BP 134/58; PULSE 62; RESP 16; TEMP 36.4; O2SAT 94
[2025-02-15 03:27] VITALS: BMI 22.2
[2025-02-15 07:36] VITALS: O2SAT 93
[2025-02-15 09:00] VITALS: BP 125/53; PULSE 51; RESP 18; TEMP 36.3; O2SAT 96
--- NOTE | 2025-02-15 09:02 | CASEMGMT ---
Addendum entered by Alia Valerio 02/15/25 09:13: Pt will be skilled upon return. SW updated. Original Note: Discharge Planning Updates sent via [facility]Port to [facility] with note that pt will likely return today and asked if they will skill pt. Awaiting response. Alia Valerio DC Planning Asst.
[2025-02-15 14:07] LABS: Hematocrit 38.3 % (37-47); Hemoglobin 13.2 g/dL (12.0-15.0); Immature Granulocytes Count 0.020 X10^3/uL (0.0-0.0); Mean Corp Hgb Conc 34.5 g/dL (32-36); Mean Corpuscular Volume 90.5 fL (81-99); Mean Platelet Vol. 9.5 fl (6.2-12.0); NRBC Flagged by Analyzer 0 % (0-5); Platelet Count 303 K/mm3 (150-450); RBC Distribution Width CV 13.3 % (11.6-14.6); RBC Distribution Width SD 44.8 fl (35.1-43.9); Red Blood Count 4.23 M/mm3 (4.2-5.4); White Blood Count 6.4 K/mm3 (4.4-11.0)
[2025-02-15 14:40] LABS: Anion Gap 11 (5-15); BUN 7 mg/dL (4-19); BUN/Creat Ratio 11.6 RATIO (10-20); Calcium,Total 9.0 mg/dL (7.6-11.0); Carbon Dioxide 22.8 mmol/L (21.0-32.0); Chloride 107 mmol/L (98-108); Estimated Creatinine Clearance 45.10 ml/min (50-250); Glucose 92 mg/dL (70-99); Potassium 3.1 mmol/L (3.3-5.1)
--- NOTE | 2025-02-15 14:40 | PCM.TXEXTCAR ---
Diet Diet Order/Speech Therapy: INPATIENT Hospital Diet / Speech Therapy Order(s) 02/13/25 11:28 Diet: Sodium Restricted (MOD) Food consistency:: Regular Liquid Consistency:: Regular/Thin Routine Orders/Code Status Enema Type: Fleetz Enema Frequency: Daily PRN Suppository Type: Dulcolax 10mg Suppository Frequency: Daily PRN DC O2, CPAP, BIPAP needs Home O2 Discharge instructions: No Wound(s) Right anterior lower leg: Wound Type: Skin Tear Right Posterior Forearm: Wound Type: Skin Tear Therapies Weight Bearing: Weight bearing as tolerated Physical Therapy: Eval and Treat Occupational Therapy: Eval and Treat Problem/Diagnosis (1) Sepsis: Status: Acute Code(s): A41.9 - Sepsis, unspecified organism (2) UTI (urinary tract infection): Status: Acute Code(s): N39.0 - Urinary tract infection, site not specified Allergies/Procedures Done in Hospital Allergies No Known Allergies Allergy (Verified 02/12/25 16:58) Procedures: None Type of Care/Length of Stay Estimated LOS: Convalescent Care Less Than 30 days Type of Care Needed: Skilled Rehab Potential: Fair Prognosis: Fair Additional Orders/Day of Discharge Day of Discharge: 02/15/25 Dietary and Speech Recommendations Dietitian Recommendations/Changes: Adjust to sodium restriction to manage medical conditions. Continue 120mL EPHP TID with medpass. Will monitor weight trends. Will try to obtain nutrition information at time of follow-up, when pt is more alert and oriented. Discharge Plan Admission Admit Date/Time: 02/12/25 19:48 Primary Reason for Your Visit: UTI Attending Provider: Samara Heart Primary Care Provider: Demetrio Coppola Consulting Providers: Brenda Fajardo; Rajat Mauricio Instructions Patient Instructions: ED Cystitis Female Adult Discharge Orders/Prescriptions Prescriptions: New cefdinir 300 mg capsule 300 mg PO BID Qty: 10 0RF Continued cholecalciferol (vitamin D3) [D3-2000] 50 mcg (2,000 unit) capsule 50 mcg PO DAILY atorvastatin 20 mg tablet 20 mg PO QHS carbidopa-levodopa 25-100 mg tablet 2 tab PO TID bisacodyl 10 mg suppository 10 mg VT DAILY PRN (Reason: constipation) Patient Comments: 8 HRS AFTER MOM loperamide [Diamode] 2 mg tablet 2 mg PO Q6H PRN (Reason: loose stool) magnesium hydroxide [Milk of Magnesia] 400 mg/5 mL suspension 30 ml PO DAILY PRN (Reason: stomach upset) mineral oil Enema 118 ml VT DAILY PRN (Reason: constipation) dextromethorphan-guaifenesin [Chest Congestion Relief DM] 10-100 mg/5 mL syrup 10 ml PO Q4H PRN (Reason: cough) Deep Sea Nasal 0.65 % aerosol,spray 2 spray intranasal PRN ondansetron HCl 4 mg tablet 4 mg PO Q8H PRN (Reason: nausea and vomiting) darifenacin 7.5 mg tablet extended release 24 hr 7.5 mg PO DAILY rivastigmine tartrate 1.5 mg capsule 1.5 mg PO BID acetaminophen [Pain Relief (acetaminophen)] 325 mg tablet 650 mg PO Q4H PRN (Reason: fever or pain) Discontinued acetaminophen 500 mg Tablet 1,000 mg PO Q6H PRN PRN (Reason: Pain Score 1-10) Qty: 0 0RF Referrals / Follow Up: Dmitry Monteiro MD [Med Staff - Dehydrator Operator, Family Practice] - Within 1 Week Demetrio Coppola MD [Primary Care Provider, [facility]] Disposition Disposition (needs filled in before D/C Order can be placed): Custodial Facility
[2025-02-15 14:44] VITALS: BP 125/53; PULSE 51; RESP 18; TEMP 36.3; O2SAT 96
--- NOTE | 2025-02-15 14:44 | PCM.DC.SUM ---
Providers Date of Admission: 02/12/25 Date of Discharge: 02/15/25 Primary Care Physician: Dr. Demetrio Coppola MD Reason For Visit: UTI, SEPSIS Diagnosis Discharge Diagnosis (1) Sepsis: Status: Acute Code(s): A41.9 - Sepsis, unspecified organism (2) UTI (urinary tract infection): Status: Acute Code(s): N39.0 - Urinary tract infection, site not specified Medications at Discharge Home Medications carbidopa 25 mg-levodopa 100 mg tablet 2 tab PO TID parkinsons 11/22/21 cholecalciferol (vitamin D3) 50 mcg (2,000 unit) capsule (D3-2000) 50 mcg PO DAILY 03/16/22 atorvastatin 20 mg tablet 20 mg PO QHS HYPERLIPIDEMIA 01/27/24 bisacodyl 10 mg rectal suppository 10 mg MS DAILY PRN constipation 12/17/24 dextromethorphan-guaifenesin 10 mg-100 mg/5 mL oral syrup (Chest Congestion Relief DM) 10 ml PO Q4H PRN cough 12/17/24 loperamide 2 mg tablet (Diamode) 2 mg PO Q6H PRN loose stool 12/17/24 magnesium hydroxide 400 mg/5 mL oral suspension (Milk of Magnesia) 30 ml PO DAILY PRN stomach upset 12/17/24 mineral oil 118 ml MS DAILY PRN constipation 12/17/24 ondansetron HCl 4 mg tablet 4 mg PO Q8H PRN nausea and vomiting 12/17/24 sodium chloride 0.65 % nasal spray aerosol (Deep Sea Nasal) 2 spray intranasal PRN nasal congestion 12/17/24 acetaminophen 325 mg tablet (Pain Relief (acetaminophen)) 650 mg PO Q4H PRN fever or pain 02/12/25 darifenacin 7.5 mg tablet,extended release 24 hr 7.5 mg PO DAILY overactive bladder 02/12/25 rivastigmine tartrate 1.5 mg capsule 1.5 mg PO BID 02/12/25 cefdinir 300 mg capsule 300 mg PO BID #10 caps 02/15/25 Hospital Course Operations None Procedures None Summary of Care Provided Minutes Spent on Discharge: 42 Hospital Course: Patient is a 79-year-old female with a past medical history as outlined was admitted through the ED on 02/12/2025 with complaint of fever and altered mental status. She has underlying dementia. Has no history on the day of admission and she was not very responsive like her usual self and she also had fever and mild tachycardia so she was brought into the ED. On admission labs were significant for urinalysis showing evidence of 3+ bacteria. CT of the brain showed no acute intracranial pathology. Respiratory panel was negative. SHe was admitted to be managed for UTI. She was started on IV ceftriaxone. Urine culture grew Citrobacter which was pansensitive. She had an uncomplicated hospital course and was discharged back to her SNF on 02/15/2025. She was discharged on PO cefdinir 300mg bid x 5 days. She is to follow up with her PCP within 1-2 weeks. Patient seen and examined. She was alert and had a flat affect. She had no active complaints. Review of systems otherwise negative. Labs and vitals reviewed. Home with his reader reconciled. Physical Exam Const alert and no apparent distress General Appearance: cooperative and comfortable Orientation / Consciousness: awake Exam Limitations: no limitations HEENT normocephalic, head/scalp atraumatic, hearing grossly normal bilaterally, moist oral mucous membranes and oropharynx normal Mouth: oral and palatal mucosa normal Eyes EOMs intact bilaterally and conjunctivae normal Neck supple and no JVD Resp normal respiratory effort, no retractions, no use of accessory muscles and clear to auscultation bilaterally Cardio regular rate, regular rhythm, S1 normal heart sound, S2 normal heart sound and no murmurs GI normal to inspection, nondistended, normoactive bowel sounds, soft to palpation and non-tender Extremity normal to inspection, full ROM and no clubbing, cyanosis or edema Skin no rashes or lesions noted Neuro CN's II-XII intact bilaterally and moves all extremities Neuro Narrative: flat affect Motor Exam: strength 5/5 throughout Weight / BMI Weight Weight: 121 lb 11.123 oz Body Mass Index (BMI) 22.2 ABG / Lab / Microbiology Data 02/15/25 13:46 02/15/25 13:46 Laboratory: Laboratory Results - last 24 hr 02/15/25 13:46: WBC 6.4, RBC 4.23, Hgb 13.2, Hct 38.3, MCV 90.5, MCH 31.2, MCHC 34.5 D, RDW Std Deviation 44.8 H, RDW Coeff of Annalise 13.3, Plt Count 303, MPV 9.5, Immature Gran % (Auto) 0.300, Neut % (Auto) 57.2, Lymph % (Auto) 32.3, [place] % (Auto) 7.8, Eos % (Auto) 1.9, Baso % (Auto) 0.5, Absolute Neuts (auto) 3.7, Absolute Lymphs (auto) 2.06, Nucleated RBC % 0, Sodium 141, Potassium 3.1 L, Chloride 107, Carbon Dioxide 22.8, Anion Gap 11, BUN 7, Creatinine 0.61 L, Estim Creat Clear Calc 45.10 L, Est GFR (MDRD) Non-Af 91, BUN/Creatinine Ratio 11.6, Glucose 92, Calcium 9.0 Microbiology: Microbiology 02/12/25 17:50 Blood Culture (Wb) #2 - Anticubital Right Blood Culture - Preliminary No growth in 48 hours. 02/12/25 17:30 Blood Culture (Wb) - Venous Blood Culture - Preliminary No growth in 48 hours. 02/12/25 17:50 Urine Catheter - Catheter Urine Culture - Final Citrobacter koseri 02/12/25 23:15 Mucosa - Nasopharyngeal Respiratory Panel (PCR) - Final 02/12/25 17:50 Urine Catheter - Catheter Legionella Antigen - Final 02/12/25 17:50 Urine Catheter - Catheter Streptococcus pneumoniae Antigen (M - Final 02/12/25 17:30 Mucosa - Nose SARS-CoV-2, Influenza & RSV (PCR) - Final D/C Instructions Discharge Activity: Return to Normal Activity Weight Bearing Status: Weight bearing as tolerated Call your doctor if you observe: Fever of 101 or Higher, Shortness of breath, Dizziness, Swelling in the ankles and Chest pain DC O2, CPAP, BIPAP Needs Home O2 Discharge instructions: No DC home with Oxygen: No Meaningful Use Info Meaningful Use Meaningful Use Diagnoses (Choose all that apply): None applicable Discharge Plan Admission Admit Date/Time: 02/12/25 19:48 Primary Reason for Your Visit: UTI Attending Provider: Samara Heart Primary Care Provider: Demetrio Coppola Consulting Providers: Brenda Fajardo; Rajat Mauricio Instructions Patient Instructions: ED Cystitis Female Adult Discharge Orders/Prescriptions Prescriptions: New cefdinir 300 mg capsule 300 mg PO BID Qty: 10 0RF Continued cholecalciferol (vitamin D3) [D3-2000] 50 mcg (2,000 unit) capsule 50 mcg PO DAILY atorvastatin 20 mg tablet 20 mg PO QHS carbidopa-levodopa 25-100 mg tablet 2 tab PO TID bisacodyl 10 mg suppository 10 mg MS DAILY PRN (Reason: constipation) Patient Comments: 8 HRS AFTER MOM loperamide [Diamode] 2 mg tablet 2 mg PO Q6H PRN (Reason: loose stool) magnesium hydroxide [Milk of Magnesia] 400 mg/5 mL suspension 30 ml PO DAILY PRN (Reason: stomach upset) mineral oil Enema 118 ml MS DAILY PRN (Reason: constipation) dextromethorphan-guaifenesin [Chest Congestion Relief DM] 10-100 mg/5 mL syrup 10 ml PO Q4H PRN (Reason: cough) Deep Sea Nasal 0.65 % aerosol,spray 2 spray intranasal PRN ondansetron HCl 4 mg tablet 4 mg PO Q8H PRN (Reason: nausea and vomiting) darifenacin 7.5 mg tablet extended release 24 hr 7.5 mg PO DAILY rivastigmine tartrate 1.5 mg capsule 1.5 mg PO BID acetaminophen [Pain Relief (acetaminophen)] 325 mg tablet 650 mg PO Q4H PRN (Reason: fever or pain) Discontinued acetaminophen 500 mg Tablet 1,000 mg PO Q6H PRN PRN (Reason: Pain Score 1-10) Qty: 0 0RF Referrals / Follow Up: Dmitry Monteiro MD [Med Staff - Freight Associate, Family Practice] - Within 1 Week Demetrio Coppola MD [Primary Care Provider, [facility]] Disposition Disposition (needs filled in before D/C Order can be placed): Alf Facility Charges/Coding Visit Charges Inpatient E&M: 53712 Disch Hosp >30min
[2025-02-15] MEDS: Potassium Chloride Oral Tablet 20 MEQ 60 MEQ PO (14:52)
--- NOTE | 2025-02-15 15:36 | CASEMGMT ---
Discharge Planning Discharge orders, signed med list, and transport time sent via CarePort to [facility]. Pts will transport in the next hour. Nursing, SW, and pt updated. Alia Valerio DC Planning Asst.
--- NOTE | 2025-02-15 15:42 | NURSING ---
Report called to nurse Rogers for pt to be d/c back to [facility].
== END 2025-02-15 16:18 | disposition skilled nursing facility (03) | DRG 872 ==
LOC: ED 20:02 → PCU 20:23
PROVIDERS: Admitting Provider Family Medicine; Emergency Provider Emergency Medicine; Referring Provider Family Medicine; Visit Provider Student in an Organized Health Care Education/Training Program
DX: A41.50 Gram-negative sepsis, unspecified (principal); G93.49 Other encephalopathy; N30.00 Acute cystitis without hematuria; S81.811A Laceration without foreign body, right lower leg, initial encounter; F02.80 Dementia in other diseases classified elsewhere, unspecified severity, without behavioral disturbance, psychotic disturbance, mood disturbance, and anxiety; G20.A1 Parkinson's disease without dyskinesia, without mention of fluctuations; I12.9 Hypertensive chronic kidney disease with stage 1 through stage 4 chronic kidney disease, or unspecified chronic kidney disease; E78.5 Hyperlipidemia, unspecified; N18.2 Chronic kidney disease, stage 2 (mild); S51.811A Laceration without foreign body of right forearm, initial encounter; R09.02 Hypoxemia; R73.9 Hyperglycemia, unspecified; Z85.42 Personal history of malignant neoplasm of other parts of uterus; Z87.891 Personal history of nicotine dependence; Z79.899 Other long term (current) drug therapy; Z90.710 Acquired absence of both cervix and uterus
CPT/HCPCS: 36415; 36600; 51702; 70450; 71046; 80048; 80053; 81001; 82803; 82962; 83036; 83605; 84484; 85025; 85610; 85730; 87040; 87077; 87086; 87088; 87186; 87449; 87631; 87633; 93005; 97162; 97165; 97535; 99285; A4216; J0696